=== PATIENT | male | born 1945 | race Hispanic/Latino ===

== ENCOUNTER → 2019-05-12 | Outpatient (CLI) | payer MEDICARE, SELFPAY | PROVIDERS: PCP Family Medicine; Visit Provider Internal Medicine Cardiovascular Disease | DX: Z13.6 Encounter for screening for cardiovascular disorders (principal); Z72.0 Tobacco use | CPT/HCPCS: 76706 ==

== ENCOUNTER 2021-05-11 11:49 | Outpatient (CLI) | payer MEDICARE, SELFPAY ==
--- NOTE | ~2021-05-11 | NM_ITS ---
EXAMINATION: NM bone scan whole body DATE: 05/11/2021 14:33 INDICATION: Prostate cancer TECHNIQUE: 22.1 mCi Tc-99m HDP was administered intravenously. Delayed whole-body scintigrams were o btained. COMPARISON: CT abdomen and pelvis dated 05/11/2021 FINDINGS: Mild likely degenerative joint centered uptake at the medial compartment of the left knee and at the right acromioclavicular joint. Otherwise physiologic distribution of bone and soft tissue uptake. No evident metastatic disease. IMPRESSION: 1. No evident metastatic disease. Reviewed, dictated and finalized at location A.
--- NOTE | ~2021-05-11 | XR_ITS ---
EXAMINATION: XR chest 2V 05/11/2021 12:54 INDICATION: Prostate cancer PROCEDURE: PA and lateral views of the chest COMPARISON: Comparison to multiple prior studies sequentially, with oldest reviewed study dated 06/23. FINDINGS: The lungs are clear. The cardiomediastinal silhouette is within normal limits. There are no pleural effusions. There is no pneumothorax suspected. IMPRESSION: 1: NO ACUTE CARDIOPULMONARY DISEASE. Reviewed, dictated and finalized at location B.
--- NOTE | ~2021-05-11 | CT_ITS ---
EXAMINATION: CT abdomen pelvis w con DATE: 05/11/2021 12:42 INDICATION: Prostate cancer TECHNIQUE: Computed tomography (CT) of the abdomen and pelvis was performed with 100 mL Omnipaque-350 intravenous contrast. Automated exposure control and iterative reconstruction technique were employe d. The dose-length product was 482.13 mGy-cm. COMPARISON: CT dated 08/03/2008 FINDINGS: Respiratory motion and mild atelectasis at the dependent lung bases. Heart size is normal. No pericar dial or pleural effusion. Liver, gallbladder, spleen, pancreas, bilateral adrenal glands and kidneys are normal. Bowels including the appendix are normal. Prostatomegaly. Partially decompressed bladder is unremarkable. Small fat-containing left inguinal hernia. No pathologically enlarged abdominal or p elvic lymphadenopathy. Chronic compression fractures with mild anterior wedging at T11-L1. Mild to mo derate thoracolumbar spondylosis. Small left supra-acetabular bone island. No suspicious lytic or sahara stic bone lesions. IMPRESSION: 1. Prostatomegaly. No evident metastatic disease. Reviewed, dictated and finalized at location A.
[2021-05-11 12:38] LABS: Estimated Glomerular Filt Rate > 60
== END 2021-05-11 11:50 | disposition home or self-care (01) ==
LOC: ANHIMG 12:04
PROVIDERS: PCP Family Medicine; Visit Provider Urology
DX: C61 Malignant neoplasm of prostate (principal); N40.0 Benign prostatic hyperplasia without lower urinary tract symptoms
CPT/HCPCS: 71046; 74177; 78306; A9561; Q9967

== ENCOUNTER 2021-06-23 07:41 | Outpatient (CLI) | payer MEDICARE, SELFPAY ==
--- NOTE | 2021-06-23 09:20 | ECG_ITS ---
Measurements Intervals [place] Rate: 69 P: 37 [place]: 130 QRS: 22 QRSD: 86 T: 53 QT: 403 QTc: 432 Interpretive Statements SINUS RHYTHM CONSIDER INFERIOR INFARCT, AGE INDETERMINATE BORDERLINE ST ABNORMALITY- HIGH LATERAL LEADS BASELINE ARTIFACT- I, II, III, AVR, AVL, AVF ABNORMAL ECG Electronically Signed On 06-23-2021 9:47:40 TECHNICIAN [employer]AT[employer]IC PATHOLOGY by Jake Persaud D.O.
[2021-06-23 09:43] LABS: Basophils Absolute Auto 0.2 K/mm3 (0.0-0.1); Eosinophils Absolute Auto 2.3 K/mm3 (0-0.3); Eosinophils Percent Auto 24.4 % (0-4.4); Hematocrit 42.3 % (42.0-52.0); Hemoglobin 13.9 g/dL (14.0-18.0); Immature Granulocyte Absolute 0.02 K/mm3 (0.00-0.031); Immature Granulocyte Percent A 0.2 % (0-0.5); Lymphocytes Absolute Auto 3.18 K/mm3 (0.9-3.2); Lymphocytes Percent Auto 33.4 % (18.3-44.2); Mean Corpuscular HGB Conc 32.9 g/dl (32-36); Mean Corpuscular Hemoglobin 28.1 pg (26-34); Mean Corpuscular Volume 85.5 fl (80-100); Mean Platelet Volume 8.8 fl (7.4-10.4); Monocytes Absolute Auto 0.6 K/mm3 (0.1-0.6); Monocytes Percent Auto 6.4 % (2.6-8.5); Neutrophils Absolute Auto 3.2 K/mm3 (1.3-6.7); Neutrophils Percent Auto 33.6 % (45.5-73.1); Platelet Count Result 308 k/mm3 (150-375); Red Blood Count 4.95 M/mm3 (4.6-6.20); Red Cell Distribution Width 15.9 % (11.5-14.5); White Blood Count 9.5 K/mm3 (4.5-10.0)
[2021-06-23 09:50] LABS: Add Urine Microscopic? YES; Appearance Urine Clear (Clear); Bilirubin Urine Negative (Negative); Blood Urine Negative (Negative); Color Urine Yellow (Yellow); Glucose Urine UA Negative (Negative); Ketones Urine Negative (Negative); Leukocyte Esterase Ur Negative LEU/UL (Negative); Mucus Urine Rare /lpf; Nitrate Urine Negative (Negative); Protein Urine 1+ mg/dL (Negative); WBC Urine 0-3 /hpf
[2021-06-23 09:53] LABS: INR 3.4; Partial Thromboplastin Time 43.9 SECONDS (22.3-36.8); Prothrombin Time 33.3 Seconds (11.1-14.7)
[2021-06-23 09:55] LABS: Alanine Aminotransferase 20 U/L (4-50); Albumin Level 4.2 g/dL (3.5-5.1); Alkaline Phosphatase 104 U/L (38-126); Anion Gap 9 mmol/L (8-16); Aspartate Amino Transferase 29 U/L (17-59); Bilirubin,Total 0.6 mg/dL (0.2-1.3); Blood Urea Nitrogen 10 mg/dL (9-20); Calcium 9.6 mg/dL (8.4-10.2); Carbon Dioxide 29 mmol/L (22-30); Chloride 104 mmol/L (98-107); Estimated Glomerular Filt Rate > 60; Glucose 90 mg/dL (65-110); Sodium 142 mmol/L (137-145)
== END 2021-06-23 07:42 | disposition home or self-care (01) ==
LOC: ANHSURGERY 07:48
PROVIDERS: PCP Family Medicine; Visit Provider Urology
DX: Z01.818 Encounter for other preprocedural examination (principal); C61 Malignant neoplasm of prostate; R94.31 Abnormal electrocardiogram [ECG] [EKG]
CPT/HCPCS: 36415; 80053; 81001; 85025; 85610; 85730; 86850; 86900; 86901; 93005

== ENCOUNTER 2021-06-30 00:39 | Day surgery (SDC) | payer MEDICARE, SELFPAY ==
--- NOTE | 2021-06-22 10:43 | PM.IMHP ---
H&P: HPI History of Present Illness Date/Time: 06/22/21 10:43 76-year-old male recently referred with a PSA of 58.5. JOE showed irregularity in the prostate. Transrectal ultrasonography showed a 34 g prostate without obvious extracapsular extension. Biopsy showed 6 of 12 cores with [place] [address] abd/pelvis w/ contrast and bone scan showed no evidence of metastatic disease or obvious extracapsular extension. After careful discussion of therapeutic options patient has elected for a radical, robotic assisted prostatectomy. He is aware of the risk of this including, but not limited to, failure to completely control his cancer, rectal injury, adverse cardiopulmonary events, urinary incontinence and erectile dysfunction. He is aware the potential need for adjuvant radiation therapy following surgery. Chief Complaint: Prostate cancer Review of Systems Cardiovascular: Cardiovascular: Denies chest pain, Denies lightheadedness, Denies palpitations and Denies dyspnea Respiratory: Respiratory: Denies dyspnea Gastrointestinal: Gastrointestinal: Denies diarrhea, Denies nausea and Denies vomiting Genitourinary: Genitourinary: Denies hematuria and Denies dysuria Endocrine: Endocrine: Denies palpitations [facility] Past Medical History Medical History Anemia (11/02/20) hemoglobin 12.7 on 11/02/2020 BMI 29.0-29.9,adult BMI 30.0-30.9,adult CAD (coronary artery disease), [place] coronary artery Chronic anxiety Chronic pain of left knee COVID-19 virus detected (~02/16/20) Eczema Elevated PSA, between 10 and less than 20 ng/ml (11/02/20) PSA 16.3 on 11/02/2020 Eosinophilia (~11/02/20) eosinophil count 1248 on 11/02/2020 Folliculitis Iron deficiency anemia, unspecified total iron 31 with 7% saturation and ferritin 44 with hemoglobin 12.8 on 01/18/2021 Keloid scar Obstructive sleep apnea on CPAP Prostate cancer Tinea cruris Tobacco use disorder, continuous Family History Family History Mother Family history of malignant neoplasm Father Family history of malignant neoplasm Social History Social History Years smoked: 50 Smoking status: Light tobacco smoker Tobacco type: cigarettes Alcohol intake: current Alcohol use details: occasionally Substance use: never Substance use type: does not use Meds Home Medications and Allergies Home Medications Medication Instructions Recorded Confirmed Type atorvastatin 20 mg tablet 20 mg PO DAILY 06/04/19 05/05/21 History duloxetine 60 mg capsule,delayed 60 mg PO BID 06/04/19 05/05/21 History release flecainide 100 mg tablet 100 mg PO Q12H 06/04/19 05/05/21 History warfarin 3 mg tablet 3 mg PO DAILY #90 tablet 10/27/19 05/05/21 Rx azithromycin 250 mg tablet See Rx Instructions PO .COMPLEX #6 04/19/20 05/05/21 Rx tablet cephalexin 500 mg tablet 500 mg PO Q8H #30 tablet 05/18/20 05/05/21 Rx lubiprostone 24 mcg capsule 24 mcg PO BID #60 cap 05/18/20 05/05/21 Rx triamcinolone acetonide 0.5 % 1 applic TOPICAL BID #60 g 06/09/20 05/05/21 Rx topical cream mupirocin 2 % topical ointment 1 applic TOPICAL BID #30 g 07/13/20 05/05/21 Rx cyclobenzaprine 10 mg tablet 10 mg PO TID PRN #90 tablet 08/04/20 05/05/21 Rx alprazolam 0.5 mg tablet 0.5 mg PO TID PRN #90 tablet 08/27/20 05/05/21 Rx quetiapine 100 mg tablet 100 mg PO .COMPLEX #60 tablet 09/09/20 05/05/21 Rx zolpidem 10 mg tablet 10 mg PO .QHS PRN #30 tablet 10/07/20 05/05/21 Rx clotrimazole-betamethasone 1 1 applic TOPICAL BID 14 Days #30 g 11/02/20 05/05/21 Rx %-0.05 % topical cream ketoconazole 2 % topical cream 1 applic TOPICAL BID 11/02/20 05/05/21 History metformin 500 mg tablet,extended 2,000 mg PO DAILY #360 tablet 12/22/20 05/05/21 Rx release 24 hr ferrous sulfate 325 mg (65 mg 325 mg PO DAILY #30 tablet
[2021-06-23 08:12] VITALS: BP 139/76; PULSE 71; RESP 18; TEMP 36.7; O2SAT 98; BMI 30.2
--- NOTE | 2021-06-23 08:30 | PC.NURSE ---
Addendum entered by Yeny Tiwari RN 06/23/21 09:30: DAUGHTER (IAN) AND EQUIPMENT OPERATOR INTERMODAL YARD USED FOR PAT INTERVIEW AND CONSENT SIGNINGS. THEY RELAY UNDERSTANDING. Original Note: Report to the Outpatient Waiting Room, entrance under the green pavilion located off [facility], at time ___6:00AM____ on date _06/30/21 . OR Time: ___7:30AM . - You and your visitor will be asked a series of questions to screen for COVID 19 for your protection. - A mask is required within the hospital. - Only one visitor is allowed at this time. Patient visitors will be guided where to wait when not with patient. Preoperative COVID Testing Requirements: No COVID Test needed if: (proof is required; if not received patient will have Rapid Test prior to entry) - Patient has received COVID Vaccine at least 14 days prior to procedure date or - Patient has positive COVID test result within last 90 days of surgery date. COVID Test needed if above criteria is not met If not COVID vaccinated a COVID test must be conducted within 72 hours of surgery and patient is asked to isolate self from time of testing until procedure. You will go to the [facility] for your COVID testing. The [facility] is located at the corner of [address] [facility]. You will only be called if COVID results are positive and your surgeon may reschedule your elective surgery date. Patients may have clear liquids (water, carbonated beverages, clear teas, apple juice) until 3 hours prior to surgery with a maximum of 20 ounces. - No food from midnight until time of surgery - Infants may have breast milk until 4 hours before surgery, infant formula 6 hours prior to surgery. - Children will be allowed to drink immediately following surgery. If applicable, please bring a bottle or sippy cup to assist with drinking. Juice, water, soda, and popsicles are readily available. For infants on formula, please bring formula the day of surgery. Pacifiers are allowed. Take the following medications with a SIP of water the morning of surgery: ___FLECAINIDE, OXYCODONE NEEDED Medications to discontinue per physician WARFARIN PER DR ESCOBAR/DR KUMAR Date to take last dose Please no make-up, nail ukrainian, hairspray, perfume, deodorant, or body powder the day of surgery. No jewelry (including any body piercings) or valuables the day of surgery, leave them at home. Please take a shower or bath the night before, or the morning of, surgery with an antibacterial soap. Wear comfortable, loose fitting clothing. Children are encouraged to wear pajamas. - Jewelry must be removed prior to entering the operating room. Rings and piercings that are not removed may be cut off. - The hospital will not accept responsibility for valuables. - Please leave all valuables, including medications, at home the day of surgery. If you are going home after surgery, a licensed ambulette driver must drive you home. - NO public transportation without another adult. - We recommend that an adult stay with you for 24 hours following discharge. - We also recommend that you do not drive, make important decision, drink alcoholic beverages, or take any drugs that were not prescribed by your health care provider for at least 24 hours after your discharge time. For Pediatric surgeries, we recommend two adults accompany the child home (only one inside the building at this time). Follow any additional instructions given to you from your surgeon. Telephone instructions given to ___PATIENT and asked if any additional questions and then verbalized understanding. Patient advised to call surgeon office or pre surgery nurse liaison [phone] if any additional questions.
--- NOTE | 2021-06-29 13:23 | WPDANESEPPF ---
Anes - Initial Pre Proc Eval Procedure: Operation Date: 06/30/21 07:30 Proposed Procedures p Robotic Assisted Laparoscopic Prostatectomy with Bilateral Pelvic Lymph Node Dissection - Gumaro Steward MD Date/Time: 06/29/21 13:23 Surgeon: Gumaro Steward MD Pre Op Diagnosis: prostate CA Patient Data Age: 76 Gender: M Height: 1.7 m Weight: 87.7 kg Last Vital Signs Temp 36.7 C 06/23/21 08:12 Pulse 71 06/23/21 08:12 Resp 18 06/23/21 08:12 BP 139/76 06/23/21 08:12 Pulse Ox 98 06/23/21 08:12 Allergies Allergy/AdvReac Type Severity Reaction Status Date / Time No Known Allergies Allergy Verified 06/30/21 06:19 Home Medications Medication Instructions Recorded Confirmed Type atorvastatin 20 mg tablet 20 mg PO DAILY 06/04/19 06/30/21 History flecainide 100 mg tablet 100 mg PO Q12H 06/04/19 06/30/21 History lubiprostone 24 mcg capsule 24 mcg PO BID #60 cap 05/18/20 06/30/21 Rx cyclobenzaprine 10 mg tablet 10 mg PO TID PRN #90 tablet 08/04/20 06/30/21 Rx quetiapine 100 mg tablet 100 mg PO .COMPLEX #60 tablet 09/09/20 06/30/21 Rx ferrous sulfate 325 mg (65 mg 325 mg PO DAILY #30 tablet 01/19/21 06/30/21 Rx iron) tablet esomeprazole magnesium 40 mg 40 mg PO DAILY #90 cap 02/02/21 06/30/21 Rx capsule,delayed release metformin 1,000 mg PO BID 06/23/21 06/30/21 History oxycodone-acetaminophen 10 mg-325 1 tablet PO Q6H PRN #120 tablet 06/23/21 Rx mg tablet warfarin 4 mg PO EVERY OTHER DAY 06/23/21 06/30/21 History warfarin [Jantoven] 3 mg PO EVERY OTHER DAY 06/23/21 06/30/21 History Patient hx anesthesia problems: none Family hx anesthesia problems: none Results Review: All pre-operative results and documents have been reviewed as part of the pre-operative evaluation. [facility] Past Medical History Medical History (Updated 06/29/21 @ 13:23 by Rich Jensen DO) Anemia (11/02/20) hemoglobin 12.7 on 11/02/2020 Atrial fibrillation BMI 29.0-29.9,adult BMI 30.0-30.9,adult CAD (coronary artery disease), [place] coronary artery Chronic anxiety Chronic pain of left knee COVID-19 virus detected (~02/16/20) Eczema Elevated PSA, between 10 and less than 20 ng/ml (11/02/20) PSA 16.3 on 11/02/2020 Eosinophilia (~11/02/20) eosinophil count 1248 on 11/02/2020 Folliculitis Iron deficiency anemia, unspecified total iron 31 with 7% saturation and ferritin 44 with hemoglobin 12.8 on 01/18/2021 Keloid scar Obstructive sleep apnea on CPAP Prostate cancer Tinea cruris Tobacco use disorder, continuous Family History Family History Mother Family history of malignant neoplasm Father Family history of malignant neoplasm Social History Social History Smoking packs per day: 0.5 Smoking cigarettes per day: 10.0 Years smoked: 50 Smoking pack-years: 25.00 Smoking status: Light tobacco smoker Tobacco type: cigarettes Additional smoking assessment comments: 5 CIG/DAY CURRENTLY Alcohol intake: current Alcohol use details: occasionally Substance use: never Substance use type: does not use Living arrangements: with family Additional living arrangements comments: [facility]- Spiritual care concerns: No Anes - Eval Final PreProcedure Day of Procedure 06/29/21 13:23 Patient weight: obese Heart: regular rate and rhythm Lungs: clear to auscultation and normal air movement Airway: Mallampati scale class II Neurological: alert and oriented Last oral intake: >/= 8 hours ASA classification: III Emergent: no Anesthetic plan: proceed Anesthesia type and monitoring: general ETT and standard monitoring Results Review: All pre-operative results and documents have been reviewed as part of the pre-operative evaluation. Informed Consent: The patient's anesthetic plan and its attendant risks and benefits were discussed with the shantel
[2021-06-30] VITALS (15 sets, daily range): BP systolic 108–149; BP diastolic 55–78; PULSE 61–94; RESP 12–25; TEMP 36–36.9; O2SAT 93–100; BMI 27.8
[2021-06-30 06:47] LABS: Glucose Point of Care 94 mg/dl (65-105)
--- NOTE | 2021-06-30 06:48 | WPDHPUPDATE1 ---
History and Physical Update Update Date/Time: 06/30/21 06:48 History and Physical has been reviewed, including an updated exam of the patient. There are NO changes in the patient's condition. Risks, benefits, and alternatives have been discussed and questions answered. Patient agrees to proceed with procedure.
[2021-06-30] MEDS: LACTATED RINGERS 1,000 ML 30 ML IV CONT ×2 (06:50→12:10)
[2021-06-30 07:41] LABS: Prothrombin Time 13.1 Seconds (11.1-14.7)
[2021-06-30 07:42] LABS: Partial Thromboplastin Time 28.6 SECONDS (22.3-36.8)
[2021-06-30] MEDS: ceFAZolin 2 GM/D5W 50 ML 2 GM/50 ML BAG IVPB (07:55)
--- NOTE | 2021-06-30 09:23 | SUR.OPER ---
BILATERAL LEGS REMAIN IN FLEXED POSITION AND UNCHANGED 09:24
--- NOTE | 2021-06-30 10:28 | SUR.OPER ---
BILATERAL LEGS AND ARMS REMAIN UNCHANGED FROM STARTING POSITION
[2021-06-30] MEDS: ceFAZolin SODIUM 1 GM VIAL IV PUSH (11:50)
--- NOTE | 2021-06-30 12:19 | W.PM.PROC2 ---
Procedure Note - Detailed Date of Procedure 06/30/21 Pre-op Diagnosis Prostate CA Post-op Diagnosis same Procedure Performed Robotic-assisted, radical prostatectomy with bilateral pelvic lymphadenectomy Surgeon Gumaro Steward MD Anesthesia general Findings Abnormal tissue planes at bladder neck and seminal vesicles. Matted pelvic lymph nodes bilaterally. Description of Procedure The patient was brought to the operative suite, where he was prepped and draped in routine sterile fashion while in a dorsal lithotomy, deep Trendelenburg position. A supraumbilical 10 mm trocar was placed after insufflation of the abdomen with a Veress needle. Three robotic ports were then placed under direct vision. Two of these were placed in the right lower quadrant - 10 cm and 20 cm lateral to, and in line with, the umbilicus. A third robotic trocar was placed 10 cm to the left of the umbilicus, and 20 cm to the left of the umbilicus, a 12 mm standard laparoscopic trocar was placed to be used as an kindergarten assistant port. Lastly, a 5 mm trocar was placed in the left upper quadrant midway between the umbilicus and the left robotic trocar. Attention was then turned to the prostatectomy. I opted for a posterior approach in this patient. An incision was made in the parietal peritoneum along the posterior bladder/posterior prostate about 2 cm above the reflection of the peritoneum over the anterior rectum. The seminal vesicles and vas deferens were immediately identified. Dissection is undertaken in a fashion so as to avoid electrocautery as much as possible, particularly near the tips of the seminal vesicles. The tissue at seminal vesicle bases was unusual with indistinct tissue planes. The seminal vesicles becamed dislodged during dissection. Dissection was also carried out in the midline so as to avoid any encounters with the ureters. The vas deferens and the seminal vesicles were dissected in their entirety to the base of the prostate. The plane anterior to Denoviller's fascia, anterior to the rectum and posterior to the prostate was then developed. I then dropped the bladder by incising the anterior parietal peritoneum just lateral to the median umbilical ligaments bilaterally. The bladder was dropped from the anterior abdominal and pelvic wall. The endopelvic fascia was identified and incised bilaterally, allowing for dissection of the posterior-lateral aspect of the prostate. The puboprostatic ligaments were transected near their origin from the posterior pubic ramus. This posterior lateral dissection of the prostate is also undertaken in a fashion so as to avoid electrocautery as much as possible. The dorsal vein of the penis is then secured with an 0 -Vicryl ligature. Attention is then turned to the bladder neck. The anterior bladder neck is incised at the vesico-prostatic junction. Likte the seminal vesicles, the normal tissue planes at the bladder neck were unusual. The previously placed urethral catheter was drawn through the urethrotomy. A very small bladder neck was maintained throughout the remainder of this dissection. The posterior bladder neck was incised in a fashion so as to avoid any injury to the ureteral orifices. Again, the small aperture of the bladder neck was maintained. The previously dissected vas deferens and the seminal vesicles were brought through the posterior bladder neck incision. The lateral prostatic pedicles were then carefully dissected from the lateral aspect of the prostate bilaterally. The prostatic pedicles were secured with Weck clips and transected. The neurovascular bundles were carefully dissected from the posterior-lateral aspect of the prostate. The dorsal vein of the penis was incised with electrocautery. Using cold scissors, the urethra was incised. After withdrawing the previously placed urethral catheter, the posterior urethra was sharply incised, as was the rectalurethralis muscle. Attention was then turned to an e
[2021-06-30 12:20] LABS: Glucose Point of Care 92 mg/dl (65-105)
[2021-06-30] MEDS: fentaNYL CITRATE INJ (*CRX) 100 MCG/2 ML VIAL 25 MCG IV PUSH ×5 (12:36→13:17)
--- NOTE | 2021-06-30 14:06 | ADMGEN ---
This patient, Ej Steen, was admitted to Medical Room 346-01. Patient/family oriented to hospital policies and general routines including ID bracelet, bed and alarms, visiting hours, pain management, procedures, bathroom and other care routines, personal items, smoking policy, room service/diet, and visiting hours. Information on how to activate the Rapid Response Team has been discussed. Patient/Family are encouraged to report perceived risks to care and to ask questions if they do not understand what they are told or what they should do.
[2021-06-30] MEDS: KETOROLAC 15 MG/ML VIAL (*BKC) IV PUSH (14:16)
[2021-06-30] MEDS: CYCLOBENZAPRINE HCL 10 MG TABLET PO ×2 (14:16→18:39)
[2021-06-30] MEDS: LACTATED RINGERS 1,000 ML 125 ML IV CONT (14:20)
[2021-06-30] MEDS: HYOSCYAMINE SULFATE 0.125 MG TABLET SUBLINGUAL (16:37)
[2021-06-30] MEDS: ONDANSETRON INJ 4 MG/2 ML VIAL IV PUSH (16:38)
[2021-06-30 16:39] LABS: Glucose Point of Care 110 mg/dl (65-105)
[2021-06-30] MEDS: LUBIPROSTONE 24 MCG CAPSULE PO (18:39)
[2021-06-30] MEDS: QUEtiapine FUMARATE 100 MG, QUEtiapine FUMARATE 50 MG 150 MG PO (21:32)
[2021-06-30] MEDS: FLECAINIDE ACETATE 100 MG TABLET PO (21:32)
[2021-06-30 21:37] LABS: Glucose Point of Care 122 mg/dl (65-105)
[2021-07-01] MEDS: LACTATED RINGERS 1,000 ML 125 ML IV CONT (00:28)
[2021-07-01 03:15] VITALS: BP 124/61; PULSE 84; RESP 18; TEMP 36.5; O2SAT 96
[2021-07-01 06:28] LABS: Hemoglobin 9.4 g/dL (14.0-18.0)
[2021-07-01 07:07] LABS: Anion Gap 8 mmol/L (8-16); Blood Urea Nitrogen 20 mg/dL (9-20); Calcium 7.9 mg/dL (8.4-10.2); Carbon Dioxide 23 mmol/L (22-30); Chloride 101 mmol/L (98-107); Estimated CRCL calculation 52 ml/min; Estimated Glomerular Filt Rate > 60; Glucose 113 mg/dL (65-110); Potassium 4.1 mmol/L (3.4-5.0); Sodium 132 mmol/L (137-145)
--- NOTE | 2021-07-01 07:33 | W.PM.PROC2 ---
Procedure Note - Detailed Date of Procedure 07/01/21 Pre-op Diagnosis prostate CA Surgeon Gumaro Steward MD Estimated Blood Loss -200.0 Urine Output 150
--- NOTE | 2021-07-01 07:35 | WPDUROPN2 ---
Progress Note: A&P Assessment and Plan (1) Prostate cancer: Code(s): C61 - Malignant neoplasm of prostate Status: Acute Assessment and Plan: Comfortable, no complaints - tolerating diet. Increase diet/ambulation. Home later today likely. Subjective Subjective Date/Time Seen: 07/01/21 07:35 Comfortable, no complaints, tolerating diet Review of Systems Cardiovascular: Cardiovascular: Denies chest pain, Denies lightheadedness, Denies palpitations and Denies dyspnea Respiratory: Respiratory: Denies dyspnea Gastrointestinal: Gastrointestinal: Denies diarrhea, Denies nausea and Denies vomiting Genitourinary: Genitourinary: Denies hematuria and Denies dysuria Endocrine: Endocrine: Denies palpitations Exam Const: General: no acute distress Resp: Effort & Inspection: normal respiratory effort GI: Inspection: non-distended GI Palp: No abdominal tenderness and No Guarding due to palpation present (GI) Auscultation: normal bowel sounds Objective Data Vital Signs Vital Signs: Vital Signs - 24 hr 06/30/21 12:10 06/30/21 12:15 06/30/21 12:25 Temperature 98.4 F Pulse Rate 77 81 79 Respiratory Rate 13 18 12 Blood Pressure 139/75 137/70 141/77 H Pulse Oximetry 100 100 100 06/30/21 12:40 06/30/21 12:55 06/30/21 13:10 Temperature Pulse Rate 84 87 86 Respiratory Rate 25 H 20 16 Blood Pressure 149/73 H 141/76 H 133/75 Pulse Oximetry 100 95 97 06/30/21 13:24 06/30/21 13:56 06/30/21 14:15 Temperature 96.8 F L 97.6 F Pulse Rate 94 62 92 Respiratory Rate 14 18 18 Blood Pressure 108/68 136/71 139/68 Pulse Oximetry 94 93 96 06/30/21 14:45 06/30/21 15:40 06/30/21 19:15 Temperature 97.4 F L 97.6 F 97.3 F L Pulse Rate 90 90 91 Respiratory Rate 18 18 20 Blood Pressure 117/65 114/68 120/55 L Pulse Oximetry 98 96 99 06/30/21 21:32 06/30/21 23:15 Temperature 97.0 F L Pulse Rate 61 85 Respiratory Rate 18 Blood Pressure 113/56 L Pulse Oximetry 97 Intake/Output Intake/Output: Intake & Output 06/28/21 06/29/21 06/30/21 07/01/21 23:59 23:59 23:59 23:59 Intake Total 2450 550 Output Total 390 Balance 2060 550 Meds/Results Medications: Active Medications Generic Name Dose Route Start Last Admin Trade Name Freq PRN Reason Stop Dose Admin Atorvastatin Calcium 20 mg 07/01/21 09:00 Atorvastatin 20 Mg Tablet PO DAILY DAREN Cyclobenzaprine HCl 10 mg 06/30/21 13:30 06/30/21 18:39 Cyclobenzaprine Hcl 10 Mg Tablet PO 10 mg TID PRN Administration muscle spasm Dextrose 12.5 gm 06/30/21 12:30 Dextrose 50% 25 Gm/50 Ml Syringe IV PUSH PRN PRN Hypoglycemia Protocol Flecainide Acetate 100 mg 06/30/21 21:00 06/30/21 21:32 Flecainide Acetate 100 Mg Tablet PO 100 mg Q12H DAREN Administration Glucagon 1 mg 06/30/21 12:30 Glucagon For Inj 1 Mg Vial IM PRN PRN Hypoglycemia Protocol Glucose 15 gm 06/30/21 12:30 Glucose Oral Gel 15 Gm Of Glucse In 37.5 Gm Tube PO PRN PRN Hypoglycemia Protocol Hyoscyamine 0.125 mg 06/30/21 13:30 06/30/21 16:37 Hyoscyamine Sulfate 0.125 Mg Tablet SUBLINGUAL 0.125 mg Q4H PRN Administration Bladder Spasm Dextrose 1,000 mls @ 100 mls/hr 06/30/21 12:30 Dextrose 5% 1,000 Ml IVPB PRN PRN Hypoglycemia Protocol Lactated Ringer's 1,000 mls @ 125 mls/hr 06/30/21 13:30 07/01/21 05:35 Lr - Lactated Ringers Iv IV CONT 125 mls/hr .Q8H DAREN Infusion Acetaminophen 1,000 mg in 100 mls @ 400 mls/hr 06/30/21 14:00 07/01/21 02:55 Ofirmev 1,000 Mg Ivpb IVPB 07/01/21 13:59 Infused Q6H DAREN Infusion Insulin Aspart 2 - 5 units 06/30/21 17:00 06/30/21 16:41 Insulin Aspart (*Bkc) 100 Units/Ml SUB-Q Not Given TIDWM DAREN Protocol Ketorolac Tromethamine 15 mg 06/30/21 13:30 06/30/21 14:16 Ketorolac 15 Mg/Ml Vial (*Bk) IV PUSH 07/01/21 13:29 15 mg Q6H PRN Administration Pain Ra
[2021-07-01 07:57] LABS: Glucose Point of Care 109 mg/dl (65-105)
[2021-07-01 09:22] VITALS: BP 98/44; PULSE 92; RESP 20; TEMP 36.1; O2SAT 96
[2021-07-01 09:38] VITALS: PULSE 86
[2021-07-01] MEDS: QUEtiapine FUMARATE 25 MG TABLET 50 MG PO (09:38)
[2021-07-01] MEDS: FLECAINIDE ACETATE 100 MG TABLET PO (09:38)
[2021-07-01] MEDS: LUBIPROSTONE 24 MCG CAPSULE PO (09:38)
[2021-07-01] MEDS: levoFLOXacin 500 MG TABLET PO (09:39)
[2021-07-01] MEDS: ATORVASTATIN 20 MG TABLET PO (09:39)
--- NOTE | 2021-07-01 10:02 | PC.NURSE ---
Went over d/c instructions with status copy room technician- pt verbalized understanding
[2021-07-04 07:15] LABS: Glucose Point of Care 121 mg/dl (65-105)
[2021-07-04 07:15] LABS: Glucose Point of Care 105 mg/dl (65-105)
[2021-07-04 07:16] LABS: Glucose Point of Care 115 mg/dl (65-105)
== END 2021-07-01 11:20 | disposition home or self-care (01) ==
LOC: ANHSURGERY 06:05 → ANH3MED 13:34
PROVIDERS: PCP Family Medicine; Visit Provider Urology
PROC: 0VT04ZZ Resection of Prostate, Percutaneous Endoscopic Approach (ICD-10-PCS; CPT 55867; principal; 2021-06-30 07:30)
DX: C61 Malignant neoplasm of prostate (principal); N41.1 Chronic prostatitis; I48.91 Unspecified atrial fibrillation; I25.10 Atherosclerotic heart disease of native coronary artery without angina pectoris; D50.9 Iron deficiency anemia, unspecified; F41.9 Anxiety disorder, unspecified; G47.33 Obstructive sleep apnea (adult) (pediatric); Z79.01 Long term (current) use of anticoagulants; Z79.84 Long term (current) use of oral hypoglycemic drugs; F17.210 Nicotine dependence, cigarettes, uncomplicated; E66.9 Obesity, unspecified; Z68.27 Body mass index [BMI] 27.0-27.9, adult
CPT/HCPCS: 55866; 38571; S2900; 36415; 80048; 82948; 85014; 85018; 85610; 85730; 88302; 88305; 88307; 88309; A9270; J0131; J0330; J0690; J1885; J2270; J2370; J2405; J2704; J2710; J3010; J7030; J7120; Q9968

== ENCOUNTER 2021-07-02 06:18 | Inpatient (IN) | payer MEDICARE, MEDICAID, SELFPAY ==
[2021-07-02] VITALS (10 sets, daily range): BP systolic 140–172; BP diastolic 69–92; PULSE 91–112; RESP 12–20; TEMP 36.5–36.7; O2SAT 91–96; BMI 28.1
--- NOTE | ~2021-07-02 | CT_ITS ---
EXAMINATION: CT abdomen pelvis w con INDICATION: Generalized abdominal pain and constipation, recent prostatectomy TECHNIQUE: Computed tomographic images of the abdomen and pelvis were obtained after the administrati on of 100 cc of Omnipaque 350 intravenous contrast. The dose-length product (DLP) was 649.11 mGy-cm. Automated exposure control and iterative reconstruction technique were employed. COMPARISON: 05/11/2021 FINDINGS: There are tiny pleural effusions. There is a 3 mm nodule of the right middle lobe. Atelecta sis is present at the visualized lung bases. The heart size is normal. Respiratory motion artifact sl ightly limits evaluation of the upper abdomen. The liver, spleen,, gallbladder, and adrenal glands ar e normal. 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 The kidneys are unremarkable. The bladder is decompressed by a Hercules catheter. There is a mo derate volume of free intraperitoneal gas. Gas is also seen in the anterior abdominal wall which trac ks into the pelvis, inguinal regions, scrotum, and proximal lower extremities. There is hyperattenuat ing fluid of the right pelvis which tracks anterior to the urinary bladder. The right pelvic componen t measures approximately 8.7 x 2.5 cm. There is liquid stool throughout much of the colon. There is r etroperitoneal and bilateral iliac chain lymphadenopathy. For instance a 3.5 x 2.3 cm lymph node is s een adjacent to the proximal left common iliac artery. Chronic compression fractures are again noted from T11 through L1. IMPRESSION: 1. Widespread intraperitoneal gas and gas in the anterior subcutaneous tissues tracking into the scro dainel and proximal lower extremities, consistent with sequela of recent prostatectomy. 2. Hyperattenuating fluid collection of the right pelvis tracking anterior to the urinary bladder, li mohini postoperative hematoma. 3. Retroperitoneal and bilateral iliac chain lymphadenopathy, consistent with metastatic disease. Reviewed, dictated and finalized at location A. RVISOR TYPE BAR AND SEGMENT IMPRESSION: 1. Widespread intraperitoneal gas and gas in the anterior subcutaneous tissues tracking into the scrotum and proximal lower extremities, consistent with seque la of recent prostatectomy. 2. Hyperattenuating fluid collection of the right pelvis tracking anterior to t he urinary bladder, likely postoperative hematoma. 3. Retroperitoneal and bilateral iliac chain lymphadenopathy, consistent with m etastatic disease.
[2021-07-02 07:21] LABS: Basophils Absolute Auto 0.1 K/mm3 (0.0-0.1); Basophils Percent Auto 0.5 % (0.2-1.2); Eosinophils Absolute Auto 0.5 K/mm3 (0-0.3); Eosinophils Percent Auto 4.9 % (0-4.4); Hematocrit 28.2 % (42.0-52.0); Hemoglobin 9.2 g/dL (14.0-18.0); Immature Granulocyte Absolute 0.05 K/mm3 (0.00-0.031); Immature Granulocyte Percent A 0.5 % (0-0.5); Lymphocytes Absolute Auto 1.54 K/mm3 (0.9-3.2); Lymphocytes Percent Auto 14.1 % (18.3-44.2); Mean Corpuscular HGB Conc 32.6 g/dl (32-36); Mean Corpuscular Hemoglobin 28.5 pg (26-34); Mean Corpuscular Volume 87.3 fl (80-100); Mean Platelet Volume 8.9 fl (7.4-10.4); Monocytes Absolute Auto 1.2 K/mm3 (0.1-0.6); Monocytes Percent Auto 10.9 % (2.6-8.5); Neutrophils Absolute Auto 7.6 K/mm3 (1.3-6.7); Neutrophils Percent Auto 69.1 % (45.5-73.1); Platelet Count Result 235 k/mm3 (150-375); Red Blood Count 3.23 M/mm3 (4.6-6.20); White Blood Count 10.9 K/mm3 (4.5-10.0)
--- NOTE | 2021-07-02 07:26 | ED.ABDPAIN ---
HPI - Abdominal Pain General Chief Complaint: Abdominal Pain Stated Complaint: no bm x 1 week s/p prostate removal. Time Seen by Provider: 07/02/21 07:26 Source: patient Related Data Home Medications Medication Instructions Recorded Confirmed atorvastatin 20 mg tablet 20 mg PO DAILY 06/04/19 06/30/21 flecainide 100 mg tablet 100 mg PO Q12H 06/04/19 06/30/21 metformin 1,000 mg PO BID 06/23/21 06/30/21 warfarin 4 mg PO EVERY OTHER DAY 06/23/21 06/30/21 warfarin [Jantoven] 3 mg PO EVERY OTHER DAY 06/23/21 06/30/21 Allergies Allergy/AdvReac Type Severity Reaction Status Date / Time No Known Allergies Allergy Verified 07/02/21 06:43 [facility] Past Medical History Medical History (Updated 06/29/21 @ 13:23 by Rich Jensen DO) Anemia (11/02/20) hemoglobin 12.7 on 11/02/2020 Atrial fibrillation BMI 29.0-29.9,adult BMI 30.0-30.9,adult CAD (coronary artery disease), [place] coronary artery Chronic anxiety Chronic pain of left knee COVID-19 virus detected (~02/16/20) Eczema Elevated PSA, between 10 and less than 20 ng/ml (11/02/20) PSA 16.3 on 11/02/2020 Eosinophilia (~11/02/20) eosinophil count 1248 on 11/02/2020 Folliculitis Iron deficiency anemia, unspecified total iron 31 with 7% saturation and ferritin 44 with hemoglobin 12.8 on 01/18/2021 Keloid scar Obstructive sleep apnea on CPAP Prostate cancer Tinea cruris Tobacco use disorder, continuous Family History Family History Mother Family history of malignant neoplasm Father Family history of malignant neoplasm Social History Social History Smoking packs per day: 0.5 Smoking cigarettes per day: 10.0 Years smoked: 50 Smoking pack-years: 25.00 Smoking status: Light tobacco smoker Tobacco type: cigarettes Additional smoking assessment comments: 5 CIG/DAY CURRENTLY Alcohol intake: current Alcohol use details: occasionally Substance use: never Substance use type: does not use Additional living arrangements comments: [facility]- Spiritual care concerns: No Course Vital Signs Vital signs: Vital Signs Temperature 36.7 C 07/02/21 06:38 Pulse Rate 100 07/02/21 06:38 Respiratory Rate 20 07/02/21 06:38 Blood Pressure 153/74 H 07/02/21 06:38 Pulse Oximetry 95 07/02/21 06:38 Temperature 36.7 C 07/02/21 06:38 Pulse Rate 100 07/02/21 06:38 Respiratory Rate 20 07/02/21 06:38 Blood Pressure 153/74 H 07/02/21 06:38 Pulse Oximetry 95 07/02/21 06:38 MDM - Abdominal Pain Lab Data Result diagrams: 07/02/21 07:15 07/02/21 07:15 Labs: Lab Results 07/02/21 07/02/21 07/02/21 Range/Units 07:15 07:15 07:15 WBC 10.9 H (4.5-10.0) K/mm3 RBC 3.23 L (4.6-6.20) M/mm3 Hgb 9.2 L (14.0-18.0) g/dL Hct 28.2 L (42.0-52.0) % MCV 87.3 (80-100) fl MCH 28.5 (26-34) pg MCHC 32.6 (32-36) g/dl RDW 16.0 H (11.5-14.5) % Plt Count 235 (150-375) k/mm3 MPV 8.9 (7.4-10.4) fl Immature Gran % (Auto) 0.5 (0-0.5) % Neut % (Auto) 69.1 (45.5-73.1) % Lymph % (Auto) 14.1 L (18.3-44.2) % [place] % (Auto) 10.9 H (2.6-8.5) % Eos % (Auto) 4.9 H (0-4.4) % Baso % (Auto) 0.5 (0.2-1.2) % Lymph # (Auto) 1.54 (0.9-3.2) K/mm3 [place] # (Auto) 1.2 H (0.1-0.6) K/mm3 Eos # (Auto) 0.5 H (0-0.3) K/mm3 Baso # (Auto) 0.1 (0.0-0.1) K/mm3 Abs Immat Gran (auto) 0.05 H (0.00-0.031) K/mm3 Absolute Neuts (auto) 7.6 H (1.3-6.7) K/mm3 Absolute Nucleated RBC 0.0 (0.0-0.012) K/mm3 Nucleated RBC % 0.0 (0.0-0.2) % Sodium Pending Potassium Pending Chloride Pending Carbon Dioxide Pending Anion Gap Pending BUN Pending Creatinine Pending Estim Creat Clear Calc Pending Estimated GFR Pending Glucose Pending Calcium Pe
[2021-07-02 07:29] LABS: Add Urine Microscopic? YES; Appearance Urine Clear (Clear); Bacteria Urine Trace /hpf; Bilirubin Urine Negative (Negative); Blood Urine 3+ (Negative); Color Urine Yellow (Yellow); Glucose Urine UA Negative (Negative); Ketones Urine Trace mg/dL (Negative); Leukocyte Esterase Ur Negative LEU/UL (Negative); Mucus Urine Rare /lpf; Nitrate Urine Negative (Negative); Protein Urine 2+ mg/dL (Negative); RBC Urine >75 /hpf (0-2); Specific Grav Ur 1.023 (1.001-1.035); Squamous Epithelial Cell Urine Rare /hpf (Few)
[2021-07-02 07:30] LABS: Alanine Aminotransferase 20 U/L (4-50); Albumin Level 3.5 g/dL (3.5-5.1); Alkaline Phosphatase 85 U/L (38-126); Anion Gap 10 mmol/L (8-16); Aspartate Amino Transferase 30 U/L (17-59); Bilirubin,Total 0.7 mg/dL (0.2-1.3); Blood Urea Nitrogen 16 mg/dL (9-20); Calcium 8.5 mg/dL (8.4-10.2); Carbon Dioxide 25 mmol/L (22-30); Chloride 102 mmol/L (98-107); Estimated CRCL calculation 57 ml/min; Estimated Glomerular Filt Rate > 60; Glucose 132 mg/dL (65-110); Lipase 39 U/L (23-300); Potassium 4.1 mmol/L (3.4-5.0); Sodium 137 mmol/L (137-145)
[2021-07-02] MEDS: HYDROmorphone HCL INJ (*CRX) 1 MG/ML SYR 0.5 MG IV PUSH (07:38)
[2021-07-02] MEDS: SODIUM CHLORIDE 0.9% IV 1,000 ML 999 ML IV CONT (07:38)
--- NOTE | 2021-07-02 08:35 | PC.NURSE ---
Pt states is much more comfortable at present. Made aware of pending CT scan.
--- NOTE | 2021-07-02 10:09 | PC.NURSE ---
Per [employer] Associate attempting bed placement, however have to move other patients. Pt updated on delay.
--- NOTE | 2021-07-02 10:46 | PC.NURSE ---
GALLITO Lakhani, at bedside for exam.
--- NOTE | 2021-07-02 11:47 | PC.NURSE ---
Clear liquid diet ordered for patient. Pt also requesting something else for pain.
[2021-07-02] MEDS: SODIUM CHLORIDE 0.9% IV 1,000 ML 125 ML IV CONT ×2 (11:52→23:15)
[2021-07-02] MEDS: MORPHINE SULFATE (*CRX) 4 MG/ML INJ IV PUSH ×2 (11:53→17:55)
--- NOTE | 2021-07-02 12:56 | PC.NURSE ---
Pt requests help with emptying pimentel, arrive to note pt eating chicken wings that his son brought from home. Explained that a clear liquid diet has been ordered for the patient and that he is on a clear liquid diet. Verb understanding.
--- NOTE | 2021-07-02 15:10 | PM.IMHP ---
H&P: HPI History of Present Illness Date/Time: 07/02/21 15:10. This is a 76-year-old gentleman who underwent robotic assisted laparoscopic prostatectomy. He was discharged home yesterday in stable condition. He returned today for abdominal pain and constipation. He is a [place] speaker, but his son is present in the room. They admit that he has not been taking pain medication due to fears of constipation. He has not had a bowel movement in several days pre dating the operation. He is having some bladder spasms associated with the Hercules catheter. He denies any fevers or chills. He denies any vomiting or significant nausea. CT scan was done in the emergency room. It shows an ileus, but no acute findings of bowel obstruction. There are multiple postoperative findings as well as pelvic lymphadenopathy Chief Complaint: ileus Review of Systems Review of Systems: All systems reviewed & are unremarkable except as noted in HPI and below PMFSH Past Medical History Medical History Anemia (11/02/20) hemoglobin 12.7 on 11/02/2020 Atrial fibrillation BMI 29.0-29.9,adult BMI 30.0-30.9,adult CAD (coronary artery disease), [place] coronary artery Chronic anxiety Chronic pain of left knee COVID-19 virus detected (~02/16/20) Eczema Elevated PSA, between 10 and less than 20 ng/ml (11/02/20) PSA 16.3 on 11/02/2020 Eosinophilia (~11/02/20) eosinophil count 1248 on 11/02/2020 Folliculitis Iron deficiency anemia, unspecified total iron 31 with 7% saturation and ferritin 44 with hemoglobin 12.8 on 01/18/2021 Keloid scar Obstructive sleep apnea on CPAP Prostate cancer Tinea cruris Tobacco use disorder, continuous Family History Family History Mother Family history of malignant neoplasm Father Family history of malignant neoplasm Social History Social History Smoking packs per day: 0.5 Smoking cigarettes per day: 10.0 Years smoked: 50 Smoking pack-years: 25.00 Smoking status: Current every day smoker Tobacco type: cigarettes Additional smoking assessment comments: 5 CIG/DAY CURRENTLY Alcohol intake: current Drinks per week: 1 Alcohol use details: occasionally Substance use: never Substance use type: does not use Additional living arrangements comments: [facility]- Spiritual care concerns: No Meds Home Medications and Allergies Home Medications Medication Instructions Recorded Confirmed Type atorvastatin 20 mg tablet 20 mg PO DAILY 06/04/19 07/02/21 History flecainide 100 mg tablet 100 mg PO Q12H 06/04/19 07/02/21 History lubiprostone 24 mcg capsule 24 mcg PO BID #60 cap 05/18/20 07/02/21 Rx cyclobenzaprine 10 mg tablet 10 mg PO TID PRN #90 tablet 08/04/20 07/02/21 Rx quetiapine 100 mg tablet 100 mg PO .COMPLEX #60 tablet 09/09/20 07/02/21 Rx ferrous sulfate 325 mg (65 mg 325 mg PO DAILY #30 tablet 01/19/21 07/02/21 Rx iron) tablet esomeprazole magnesium 40 mg 40 mg PO DAILY #90 cap 02/02/21 07/02/21 Rx capsule,delayed release metformin 1,000 mg PO BID 06/23/21 07/02/21 History oxycodone-acetaminophen 10 mg-325 1 tablet PO Q6H PRN #120 tablet 06/23/21 07/02/21 Rx mg tablet warfarin 4 mg PO EVERY OTHER DAY 06/23/21 07/02/21 History warfarin [Jantoven] 3 mg PO EVERY OTHER DAY 06/23/21 07/02/21 History cephalexin 500 mg PO Q8H #15 cap 06/30/21 07/02/21 Rx docusate sodium [Colace] 100 mg PO DAILY #30 cap 06/30/21 07/02/21 Rx Allergies Allergy/AdvReac Type Severity Reaction Status Date / Time No Known Allergies Allergy Verified 07/02/21 12:11 Vital Signs Vital Signs - 24 hr 07/02/21 06:38 07/02/21 08:38 07/02/21 10:08 Temperature 98.1 F Pulse Rate 100 99 95 Respiratory Rate 20 18 18 Blood Pressure 153/74 H 141/80 H 159/88 H Pulse Oximetry 95 96 92 07/02/21 10:31
[2021-07-02] MEDS: CEPHALEXIN 500 MG CAPSULE PO ×2 (18:01→20:44)
[2021-07-02] MEDS: metFORMIN HCL XR 500 MG TAB.SR.24H 1000 MG PO (18:01)
[2021-07-02] MEDS: LUBIPROSTONE 24 MCG CAPSULE PO (18:02)
[2021-07-02] MEDS: FLECAINIDE ACETATE 100 MG TABLET PO (20:42)
[2021-07-02] MEDS: QUEtiapine FUMARATE 100 MG TABLET PO (20:43)
[2021-07-02] MEDS: QUEtiapine FUMARATE 25 MG TABLET 50 MG PO (20:43)
[2021-07-03 06:00] VITALS: BP 137/56; PULSE 91; RESP 16; TEMP 36.6; O2SAT 100
[2021-07-03] MEDS: SODIUM CHLORIDE 0.9% IV 1,000 ML 125 ML IV CONT ×2 (06:08→14:33)
[2021-07-03] MEDS: CEPHALEXIN 500 MG CAPSULE PO ×3 (06:12→20:21)
[2021-07-03] MEDS: CYCLOBENZAPRINE HCL 10 MG TABLET PO ×3 (07:50→19:01)
[2021-07-03] MEDS: MORPHINE SULFATE (*CRX) 4 MG/ML INJ IV PUSH (07:51)
[2021-07-03] MEDS: FLECAINIDE ACETATE 100 MG TABLET PO ×2 (07:53→20:21)
[2021-07-03] MEDS: metFORMIN HCL XR 500 MG TAB.SR.24H 1000 MG PO ×2 (07:53→17:51)
[2021-07-03] MEDS: LUBIPROSTONE 24 MCG CAPSULE PO ×2 (07:53→17:51)
[2021-07-03] MEDS: PANTOPRAZOLE 40 MG TABLET PO ×2 (07:53→20:24)
[2021-07-03] MEDS: ATORVASTATIN 20 MG TABLET PO (07:54)
[2021-07-03] MEDS: QUEtiapine FUMARATE 25 MG TABLET 50 MG PO ×2 (07:54→20:21)
[2021-07-03] MEDS: DOCUSATE SODIUM 100 MG CAPSULE PO (07:56)
--- NOTE | 2021-07-03 10:57 | WPDUROPN2 ---
Progress Note: A&P Assessment and Plan (1) Postoperative ileus: Code(s): K91.89 - Other postprocedural complications and disorders of digestive system; K56.7 - Ileus, unspecified Status: Acute Assessment and Plan: We are going to give him a suppository. Encourage ambulation. Limit narcotics. Labs tomorrow. Discussed with patient and son. No signs of acute abdomen (2) History of prostate cancer: Code(s): Z85.46 - Personal history of malignant neoplasm of prostate Status: Acute Subjective Subjective Date/Time Seen: 07/03/21 10:57 He is still somewhat distended and uncomfortable. I talked with him and his son. They state they are passing less gas. He has not had a bowel movement. Reviewed his CT scan today. I discussed with Dr. byrd. Were going to give him a Dulcolax suppository and place him on nonnarcotic pain medication. I encouraged ambulation. He has no nausea or vomiting. He is tolerating clears, but eating little Exam Narrative: There is some flank bruising on the left. His abdomen is distended. There is no rebound or guarding. Incisions are clean. There is some subcutaneous crepitus consistent with recent laparoscopic procedure Objective Data Vital Signs Vital Signs: Vital Signs - 24 hr 07/02/21 11:30 07/02/21 12:32 07/02/21 13:30 Temperature Pulse Rate 92 91 112 H Respiratory Rate 19 18 18 Blood Pressure 142/86 H 152/69 H 172/92 H Pulse Oximetry 91 96 92 07/02/21 15:17 07/02/21 20:42 07/02/21 21:32 Temperature 97.7 F 98 F Pulse Rate 95 92 96 Respiratory Rate 20 12 Blood Pressure 144/80 H 140/70 Pulse Oximetry 94 94 07/03/21 06:00 Temperature 97.9 F Pulse Rate 91 Respiratory Rate 16 Blood Pressure 137/56 L Pulse Oximetry 100 Intake/Output Intake/Output: Intake & Output 06/30/21 07/01/21 07/02/21 07/03/21 23:59 23:59 23:59 23:59 Intake Total 2090 1100 Output Total 850 500 Balance 1240 600 Meds/Results Medications: Active Medications Generic Name Dose Route Start Last Admin Trade Name Freq PRN Reason Stop Dose Admin Atorvastatin Calcium 20 mg 07/03/21 09:00 07/03/21 07:54 Atorvastatin 20 Mg Tablet PO 20 mg DAILY DAREN Administration Bisacodyl 10 mg 07/03/21 10:54 Bisacodyl 10 Mg Suppository RECTAL 07/03/21 10:55 ONCE ONE Cephalexin HCl 500 mg 07/02/21 15:20 07/03/21 06:12 Cephalexin 500 Mg Capsule PO 500 mg Q8HR DAREN Administration Cyclobenzaprine HCl 10 mg 07/02/21 15:17 07/03/21 07:50 Cyclobenzaprine Hcl 10 Mg Tablet PO 10 mg TID PRN Administration muscle spasm Dextrose 12.5 gm 07/02/21 15:20 Dextrose 50% 25 Gm/50 Ml Syringe IV PUSH PRN PRN Hypoglycemia Protocol Docusate Sodium 100 mg 07/02/21 15:16 07/03/21 07:56 Docusate Sodium 100 Mg Capsule PO 100 mg Q12H PRN Administration Constipation Flecainide Acetate 100 mg 07/02/21 21:00 07/03/21 07:53 Flecainide Acetate 100 Mg Tablet PO 100 mg Q12HR DAREN Administration Glucagon 1 mg 07/02/21 15:20 Glucagon For Inj 1 Mg Vial IM PRN PRN Hypoglycemia Protocol Glucose 15 gm 07/02/21 15:20 Glucose Oral Gel 15 Gm Of Glucse In 37.5 Gm Tube PO PRN PRN Hypoglycemia Protocol Sodium Chloride 1,000 mls @ 125 mls/hr 07/02/21 09:55 07/03/21 06:08 Normal Saline Iv IV CONT 125 mls/hr .Q8H DAREN Administration Dextrose 1,000 mls @ 100 mls/hr 07/02/21 15:20 Dextrose 5% 1,000 Ml IVPB PRN PRN Hypoglycemia Protocol Acetaminophen 1,000 mg in 100 mls @ 400 mls/hr 07/03/21 10:51 Ofirmev 1,000 Mg Ivpb IVPB 07/04/21 10:50 Q6H PRN Pain Rated 4-6 Insulin Aspart 3 - 6 units 07/02/21 17:00 07/03/21 07:54 Insulin Aspart (*Bkc) 100 Units/Ml SUB-Q Not Given TIDWM DAREN Protocol Ketorolac Tromethamine 15 mg 07/03/21 10:51 Ketorolac 15 Mg/Ml Vial (*Bkc) IV PUSH Q6H PRN Pain Rated 4-6.
[2021-07-03] MEDS: KETOROLAC 15 MG/ML VIAL (*BKC) IV PUSH (11:17)
[2021-07-03] MEDS: BISACODYL 10 MG SUPPOSITORY RECTAL (11:17)
[2021-07-03 12:25] LABS: Glucose Point of Care 99 mg/dl (65-105)
[2021-07-03 14:25] VITALS: BP 132/60; PULSE 83; RESP 20; TEMP 36.2; O2SAT 95
[2021-07-03 16:10] LABS: Glucose Point of Care 93 mg/dl (65-105)
[2021-07-03 20:00] VITALS: PULSE 88; RESP 20; O2SAT 95
[2021-07-03 20:21] VITALS: PULSE 88
[2021-07-03] MEDS: QUEtiapine FUMARATE 100 MG TABLET PO (20:21)
[2021-07-03 20:35] LABS: Glucose Point of Care 90 mg/dl (65-105)
[2021-07-03 22:00] VITALS: BP 141/60; PULSE 86; RESP 12; TEMP 36.6; O2SAT 94
[2021-07-04] MEDS: SODIUM CHLORIDE 0.9% IV 1,000 ML 125 ML IV CONT ×2 (01:57→04:39)
[2021-07-04] MEDS: KETOROLAC 15 MG/ML VIAL (*BKC) IV PUSH (04:42)
[2021-07-04] MEDS: CEPHALEXIN 500 MG CAPSULE PO ×3 (04:47→21:34)
[2021-07-04 05:23] VITALS: BP 149/70; PULSE 89; RESP 18; TEMP 37; O2SAT 95
--- NOTE | 2021-07-04 06:21 | WPDUROPN2 ---
Progress Note: A&P Assessment and Plan (1) History of prostate cancer: Code(s): Z85.46 - Personal history of malignant neoplasm of prostate Status: Acute (2) Postoperative ileus: Code(s): K91.89 - Other postprocedural complications and disorders of digestive system; K56.7 - Ileus, unspecified Status: Acute Additional Plan Responded to suppository -> bowel movements, passing flatus and abd. less distended. Await morning labs. Advance diet later today if does well this morning. Subjective Subjective Date/Time Seen: 07/04/21 06:21 Following suppository yesterday, bowel movements x4 and passing gas. Uncomfortable from bladder spasms this morning. Review of Systems Review of Systems: ROS unobtainable: Yes other (unable to obtain/no one to interpret) Exam Const: General: no acute distress Resp: Effort & Inspection: normal respiratory effort GI: Inspection: non-distended and incision (clean and dry) GI Palp: No abdominal tenderness and No Guarding due to palpation present (GI) Auscultation: Hypoactive bowel sounds present Urinary Catheter: Urinary Catheter: patent and draining and urine clear Objective Data Vital Signs Vital Signs: Vital Signs - 24 hr 07/03/21 14:25 07/03/21 20:00 07/03/21 20:21 Temperature 97.1 F L Pulse Rate 83 88 88 Respiratory Rate 20 20 Blood Pressure 132/60 Pulse Oximetry 95 95 07/03/21 22:00 07/04/21 05:23 Temperature 97.8 F 98.6 F Pulse Rate 86 89 Respiratory Rate 12 18 Blood Pressure 141/60 H 149/70 H Pulse Oximetry 94 95 Intake/Output Intake/Output: Intake & Output 07/01/21 07/02/21 07/03/21 07/04/21 23:59 23:59 23:59 23:59 Intake Total 2090 3520 1240 Output Total 050 340 6254 Balance 1240 2670 -310 Meds/Results Medications: Active Medications Generic Name Dose Route Start Last Admin Trade Name Freq PRN Reason Stop Dose Admin Atorvastatin Calcium 20 mg 07/03/21 09:00 07/03/21 07:54 Atorvastatin 20 Mg Tablet PO 20 mg DAILY DAREN Administration Cephalexin HCl 500 mg 07/02/21 15:20 07/04/21 04:47 Cephalexin 500 Mg Capsule PO 500 mg Q8HR DAREN Administration Cyclobenzaprine HCl 10 mg 07/02/21 15:17 07/03/21 19:01 Cyclobenzaprine Hcl 10 Mg Tablet PO 10 mg TID PRN Administration muscle spasm Dextrose 12.5 gm 07/02/21 15:20 Dextrose 50% 25 Gm/50 Ml Syringe IV PUSH PRN PRN Hypoglycemia Protocol Docusate Sodium 100 mg 07/02/21 15:16 07/03/21 07:56 Docusate Sodium 100 Mg Capsule PO 100 mg Q12H PRN Administration Constipation Flecainide Acetate 100 mg 07/02/21 21:00 07/03/21 20:21 Flecainide Acetate 100 Mg Tablet PO 100 mg Q12HR DAREN Administration Glucagon 1 mg 07/02/21 15:20 Glucagon For Inj 1 Mg Vial IM PRN PRN Hypoglycemia Protocol Glucose 15 gm 07/02/21 15:20 Glucose Oral Gel 15 Gm Of Glucse In 37.5 Gm Tube PO PRN PRN Hypoglycemia Protocol Sodium Chloride 1,000 mls @ 125 mls/hr 07/02/21 09:55 07/04/21 04:39 Normal Saline Iv IV CONT 125 mls/hr .Q8H DAREN Administration Dextrose 1,000 mls @ 100 mls/hr 07/02/21 15:20 Dextrose 5% 1,000 Ml IVPB PRN PRN Hypoglycemia Protocol Acetaminophen 1,000 mg in 100 mls @ 400 mls/hr 07/03/21 10:51 Ofirmev 1,000 Mg Ivpb IVPB 07/04/21 10:50 Q6H PRN Pain Rated 4-6 Insulin Aspart 3 - 6 units 07/02/21 17:00 07/03/21 17:49 Insulin Aspart (*Bkc) 100 Units/Ml SUB-Q Not Given TIDWM DAREN Protocol Lubiprostone 24 mcg 07/02/21 17:00 07/03/21 17:51 Lubiprostone 24 Mcg Capsule PO 24 mcg BID DAREN Administration Metformin HCl 1,000 mg 07/02/21 17:00 07/03/21 17:51 Metformin Hcl Xr 500 Mg Tab.Sr.24h PO 1,000 mg BID DAREN Administration Ondansetron HCl 4 mg 07/02/21 09:51 Ondansetron Inj 4 Mg/2 Ml Vial IV PUSH Q4H PRN Nausea Pantoprazole Sodium 40 mg 07/03/21 09:00
[2021-07-04 06:44] LABS: Hematocrit 22.7 % (42.0-52.0); Hemoglobin 7.6 g/dL (14.0-18.0); Mean Corpuscular HGB Conc 33.5 g/dl (32-36); Mean Corpuscular Hemoglobin 28.9 pg (26-34); Mean Corpuscular Volume 86.3 fl (80-100); Mean Platelet Volume 9.2 fl (7.4-10.4); Platelet Count Result 287 k/mm3 (150-375); Red Blood Count 2.63 M/mm3 (4.6-6.20); Red Cell Distribution Width 16.2 % (11.5-14.5); White Blood Count 8.7 K/mm3 (4.5-10.0)
[2021-07-04 06:56] LABS: Anion Gap 8 mmol/L (8-16); Blood Urea Nitrogen 9 mg/dL (9-20); Calcium 8.1 mg/dL (8.4-10.2); Carbon Dioxide 21 mmol/L (22-30); Chloride 109 mmol/L (98-107); Estimated CRCL calculation 72 ml/min; Estimated Glomerular Filt Rate > 60; Glucose 95 mg/dL (65-110); Potassium 3.5 mmol/L (3.4-5.0); Sodium 138 mmol/L (137-145)
[2021-07-04] MEDS: CYCLOBENZAPRINE HCL 10 MG TABLET PO ×4 (07:59→17:48)
[2021-07-04 08:05] LABS: Glucose Point of Care 90 mg/dl (65-105)
[2021-07-04] MEDS: PANTOPRAZOLE 40 MG TABLET PO ×2 (08:06→19:46)
[2021-07-04] MEDS: QUEtiapine FUMARATE 25 MG TABLET 50 MG PO ×2 (08:06→19:47)
[2021-07-04] MEDS: ATORVASTATIN 20 MG TABLET PO (08:06)
[2021-07-04] MEDS: metFORMIN HCL XR 500 MG TAB.SR.24H 1000 MG PO ×2 (08:06→17:48)
[2021-07-04 08:07] VITALS: PULSE 85
[2021-07-04] MEDS: FLECAINIDE ACETATE 100 MG TABLET PO ×2 (08:07→19:46)
[2021-07-04] MEDS: LUBIPROSTONE 24 MCG CAPSULE PO ×2 (08:12→17:48)
[2021-07-04 11:52] LABS: Glucose Point of Care 93 mg/dl (65-105)
[2021-07-04 14:00] VITALS: BP 148/68; PULSE 77; RESP 18; TEMP 36.2; O2SAT 98
[2021-07-04 17:00] LABS: Glucose Point of Care 98 mg/dl (65-105)
[2021-07-04] MEDS: HYDROcodone/acetaminophen (*CRX) 5-325 MG TABLET 1 TAB PO (19:45)
[2021-07-04 19:46] VITALS: PULSE 81
[2021-07-04] MEDS: QUEtiapine FUMARATE 100 MG TABLET PO (19:46)
[2021-07-04 19:52] VITALS: BP 141/68; PULSE 81; RESP 16; TEMP 37; O2SAT 97
[2021-07-05 06:00] VITALS: BP 151/71; PULSE 71; RESP 16; O2SAT 96
[2021-07-05 06:00] LABS: Hematocrit 23.1 % (42.0-52.0); Hemoglobin 7.8 g/dL (14.0-18.0); Mean Corpuscular HGB Conc 33.8 g/dl (32-36); Mean Corpuscular Hemoglobin 29.2 pg (26-34); Mean Corpuscular Volume 86.5 fl (80-100); Mean Platelet Volume 8.7 fl (7.4-10.4); Platelet Count Result 311 k/mm3 (150-375); Red Blood Count 2.67 M/mm3 (4.6-6.20); Red Cell Distribution Width 16.3 % (11.5-14.5); White Blood Count 8.3 K/mm3 (4.5-10.0)
[2021-07-05] MEDS: CEPHALEXIN 500 MG CAPSULE PO ×2 (06:01→13:42)
[2021-07-05] MEDS: HYDROcodone/acetaminophen (*CRX) 5-325 MG TABLET 1 TAB PO ×3 (06:04→16:40)
[2021-07-05 06:17] LABS: Anion Gap 6 mmol/L (8-16); Blood Urea Nitrogen 9 mg/dL (9-20); Calcium 8.3 mg/dL (8.4-10.2); Carbon Dioxide 23 mmol/L (22-30); Chloride 109 mmol/L (98-107); Estimated CRCL calculation 64 ml/min; Estimated Glomerular Filt Rate > 60; Glucose 102 mg/dL (65-110); Potassium 3.6 mmol/L (3.4-5.0); Sodium 138 mmol/L (137-145)
--- NOTE | 2021-07-05 06:23 | WPDUROPN2 ---
Progress Note: A&P Assessment and Plan (1) Prostate cancer: Code(s): C61 - Malignant neoplasm of prostate Status: Acute Assessment and Plan: Advance to regular diet today. Possibly home later today if tolerated reg. diet. Subjective Subjective Date/Time Seen: 07/05/21 06:23 Comfortable/no abdominal pain, tolerating diet Review of Systems Cardiovascular: Cardiovascular: Denies chest pain, Denies lightheadedness, Denies palpitations and Denies dyspnea Respiratory: Respiratory: Denies dyspnea Gastrointestinal: Gastrointestinal: Denies diarrhea, Denies nausea and Denies vomiting Genitourinary: Genitourinary: Denies hematuria and Denies dysuria Endocrine: Endocrine: Denies palpitations Exam Const: General: no acute distress Resp: Effort & Inspection: normal respiratory effort GI: Inspection: non-distended GI Palp: No abdominal tenderness and No Guarding due to palpation present (GI) Auscultation: normal bowel sounds Objective Data Vital Signs Vital Signs: Vital Signs - 24 hr 07/04/21 08:07 07/04/21 14:00 07/04/21 19:46 Temperature 97.1 F L Pulse Rate 85 77 81 Respiratory Rate 18 Blood Pressure 148/68 H Pulse Oximetry 98 07/04/21 19:52 07/05/21 06:00 Temperature 98.6 F Pulse Rate 81 71 Respiratory Rate 16 16 Blood Pressure 141/68 H 151/71 H Pulse Oximetry 97 96 Intake/Output Intake/Output: Intake & Output 07/02/21 07/03/21 07/04/21 07/05/21 23:59 23:59 23:59 23:59 Intake Total 2090 3520 3080 400 Output Total 201 394 1918 450 Balance 1240 2670 480 -50 Meds/Results Medications: Active Medications Generic Name Dose Route Start Last Admin Trade Name Freq PRN Reason Stop Dose Admin Hydrocodone Bitart/Acetaminophen 1 tab 07/04/21 12:46 07/05/21 06:04 Hydrocodone/Acetaminophen (*Crx) 5-325 Mg Tablet PO 1 tab Q4H PRN Administration Pain Rated 4-6 Atorvastatin Calcium 20 mg 07/03/21 09:00 07/04/21 08:06 Atorvastatin 20 Mg Tablet PO 20 mg DAILY DAREN Administration Cephalexin HCl 500 mg 07/02/21 15:20 07/05/21 06:01 Cephalexin 500 Mg Capsule PO 500 mg Q8HR DAREN Administration Cyclobenzaprine HCl 10 mg 07/02/21 15:17 07/04/21 17:48 Cyclobenzaprine Hcl 10 Mg Tablet PO 10 mg TID PRN Administration muscle spasm Dextrose 12.5 gm 07/02/21 15:20 Dextrose 50% 25 Gm/50 Ml Syringe IV PUSH PRN PRN Hypoglycemia Protocol Docusate Sodium 100 mg 07/02/21 15:16 07/03/21 07:56 Docusate Sodium 100 Mg Capsule PO 100 mg Q12H PRN Administration Constipation Flecainide Acetate 100 mg 07/02/21 21:00 07/04/21 19:46 Flecainide Acetate 100 Mg Tablet PO 100 mg Q12HR DAREN Administration Glucagon 1 mg 07/02/21 15:20 Glucagon For Inj 1 Mg Vial IM PRN PRN Hypoglycemia Protocol Glucose 15 gm 07/02/21 15:20 Glucose Oral Gel 15 Gm Of Glucse In 37.5 Gm Tube PO PRN PRN Hypoglycemia Protocol Dextrose 1,000 mls @ 100 mls/hr 07/02/21 15:20 Dextrose 5% 1,000 Ml IVPB PRN PRN Hypoglycemia Protocol Insulin Aspart 3 - 6 units 07/02/21 17:00 07/04/21 17:45 Insulin Aspart (*Bkc) 100 Units/Ml SUB-Q Not Given TIDWM DAREN Protocol Lubiprostone 24 mcg 07/02/21 17:00 07/04/21 17:48 Lubiprostone 24 Mcg Capsule PO 24 mcg BID DAREN Administration Metformin HCl 1,000 mg 07/02/21 17:00 07/04/21 17:48 Metformin Hcl Xr 500 Mg Tab.Sr.24h PO 1,000 mg BID DAREN Administration Ondansetron HCl 4 mg 07/02/21 09:51 Ondansetron Inj 4 Mg/2 Ml Vial IV PUSH Q4H PRN Nausea Pantoprazole Sodium 40 mg 07/03/21 09:00 07/04/21 19:46 Pantoprazole 40 Mg Tablet PO 40 mg Q12HR DAREN Administration Quetiapine Fumarate 50 mg 07/02/21 21:00 07/04/21 19:47 Quetiapine Fumarate 25 Mg Tablet PO 50 mg Q12HR DAREN Administration Quetiapine Fumarate 100 mg 07/02/21 21:00 07/04/21 19:46 Quetiapine
[2021-07-05 08:17] LABS: Glucose Point of Care 113 mg/dl (65-105)
[2021-07-05 09:26] VITALS: PULSE 86
[2021-07-05] MEDS: ATORVASTATIN 20 MG TABLET PO (09:26)
[2021-07-05] MEDS: FLECAINIDE ACETATE 100 MG TABLET PO (09:26)
[2021-07-05] MEDS: metFORMIN HCL XR 500 MG TAB.SR.24H 1000 MG PO ×2 (09:27→16:40)
[2021-07-05] MEDS: LUBIPROSTONE 24 MCG CAPSULE PO ×2 (09:27→16:40)
[2021-07-05] MEDS: QUEtiapine FUMARATE 25 MG TABLET 50 MG PO (09:28)
[2021-07-05] MEDS: PANTOPRAZOLE 40 MG TABLET PO (09:28)
[2021-07-05 12:07] LABS: Glucose Point of Care 146 mg/dl (65-105)
[2021-07-05 14:00] VITALS: BP 137/70; PULSE 79; RESP 16; TEMP 36.6; O2SAT 99
[2021-07-05 16:54] LABS: Glucose Point of Care 100 mg/dl (65-105)
--- NOTE | 2021-07-05 16:57 | PM.DS ---
DS: Admitting Diagnosis Discharge Date 07/05/2021 @ 1700 Admitting Diagnosis 1. Prostate cancer 2. Postoperative adynamic ileus DS: Discharge Diagnosis Discharge Diagnosis (1) Prostate cancer: Code(s): C61 - Malignant neoplasm of prostate Status: Acute (2) Postoperative ileus: Code(s): K91.89 - Other postprocedural complications and disorders of digestive system; K56.7 - Ileus, unspecified Status: Acute DS: Summary Hospital Course Hospital Course: Patient had recently been discharged following an uneventful robotic prostatectomy. He presented with abdominal pain. CT imaging revealed findings consistent with an adynamic ileus. He had a small hematoma in the right hemipelvis this was not likely clinically significant. With supportive care his bowel function returned within 48 hours. His diet was advanced and he tolerated liquids and eventually regular diet prior to discharge. With a to collect suppository he had 4 small bowel movements and was consistently passing flatus. He felt much better at the time of discharge. Have a postoperative anemia with no signs of acute blood loss. His vital signs were stable throughout. Time Spent with Patient Time attestation: Total time spent providing and/or coordinating discharge services:15 min Exam Const: General: no acute distress Resp: Effort & Inspection: normal respiratory effort GI: Inspection: non-distended GI Palp: No abdominal tenderness and No Guarding due to palpation present (GI) Auscultation: normal bowel sounds DS: Data Data Completed and Pending Labs on day of discharge: Labs from last 24 hours 07/05/21 07/05/21 07/05/21 16:40 11:58 08:12 WBC RBC Hgb Hct MCV MCH MCHC RDW Plt Count MPV Sodium Potassium Chloride Carbon Dioxide Anion Gap BUN Creatinine Estim Creat Clear Calc Estimated GFR Glucose POC Capillary Glucose 100 146 H 113 H Calcium 07/05/21 07/05/21 07/04/21 05:40 05:40 16:56 WBC 8.3 RBC 2.67 L Hgb 7.8 L Hct 23.1 L MCV 86.5 MCH 29.2 MCHC 33.8 RDW 16.3 H Plt Count 311 MPV 8.7 Sodium 138 Potassium 3.6 Chloride 109 H Carbon Dioxide 23 Anion Gap 6 L BUN 9 Creatinine 0.80 Estim Creat Clear Calc 64 Estimated GFR > 60 Glucose 102 POC Capillary Glucose 98 Calcium 8.3 L Discharge Plan Discharge Attending physician on discharge: Gumaro Steward Discharging Clinician: Gumaro Steward Patient Disposition: Home, Self-Care Activity: may shower Diet: as tolerated Patient Instructions: Antibiotic Form, Warfarin (By mouth), Ileus (DC) Stand Alone Forms: General Discharge Information Follow-up/Referrals: Gumaro Steward MD [Physician] - Discharge Medications: New hydrocodone-acetaminophen 5-325 mg tablet 1 - 2 tablet PO Q6H PRN (Reason: pain) Qty: 30 RF: 0 hyoscyamine sulfate 0.125 mg tablet 0.125 mg PO Q6H PRN (Reason: bladder spasms) Qty: 20 RF: 2 Continued cyclobenzaprine 10 mg tablet 10 mg PO TID PRN (Reason: muscle spasm) Qty: 90 RF: 11 esomeprazole magnesium [Nexium] 40 mg capsule,delayed release(DR/EC) 40 mg PO DAILY Qty: 90 RF: 3 warfarin 4 mg tablet 4 mg PO EVERY OTHER DAY RF: 0 Hold Instructions: Resume on 07/02/21. warfarin [Jantoven] 3 mg tablet 3 mg PO EVERY OTHER DAY RF: 0 Hold Instructions: Resume on 07/02/21. metformin 500 mg tablet extended release 24 hr 1,000 mg PO BID RF: 0 cephalexin 500 mg capsule 500 mg PO Q8H Qty: 15 RF: 0 docusate sodium [Colace] 100 mg capsule 100 mg PO DAILY Qty: 30 RF: 0 hydrocodone-acetaminophen 5-325 mg tablet 1 tablet PO Q6H PRN (Reason: Pain) RF: 0 flecainide 100 mg tablet 100 mg PO Q12H RF: 0 atorvastatin 20 mg tablet 20 mg PO DAILY RF: 0 Hold Instructions: Patient no longer taking Amitiza 24 mcg cap
== END 2021-07-05 17:58 | disposition home or self-care (01) | DRG 394 ==
LOC: ANHED 09:56 → ANH3MEDSUR 11:22 → ANH3MED 14:54
PROVIDERS: General Practice; Admitting Provider Urology; Emergency Provider Emergency Medicine; PCP Family Medicine; Visit Provider Urology
DX: K91.89 Other postprocedural complications and disorders of digestive system (principal); K56.0 Paralytic ileus; I48.20 Chronic atrial fibrillation, unspecified; N99.840 Postprocedural hematoma of a genitourinary system organ or structure following a genitourinary system procedure; Z23 Encounter for immunization; Z85.46 Personal history of malignant neoplasm of prostate; I25.10 Atherosclerotic heart disease of native coronary artery without angina pectoris; F41.9 Anxiety disorder, unspecified; L30.9 Dermatitis, unspecified; G47.33 Obstructive sleep apnea (adult) (pediatric); D50.9 Iron deficiency anemia, unspecified; F17.210 Nicotine dependence, cigarettes, uncomplicated; Z86.16 Personal history of COVID-19
CPT/HCPCS: 36415; 74177; 80048; 80053; 81001; 82948; 83605; 83690; 85014; 85018; 85025; 85027; 85610; 85730; 87086; 88302; 88305; 88307; 88309; 90471; 90653; 96361; 96365; 96375; 96376; 99285; A9270; G0008; G0378; J0131; J0330; J0690; J1170; J1885; J2270; J2370; J2405; J2704; J2710; J3010; J7030; J7120; Q9967

== ENCOUNTER 2021-07-08 11:04 | Outpatient (CLI) | payer MEDICARE, SELFPAY ==
--- NOTE | ~2021-07-08 | XR_ITS ---
EXAMINATION: XR cystogram DATE: 07/08/2021 11:45 INDICATION: Prostate cancer TECHNIQUE: Water-soluble contrast was gravity-infused through the patient's Hercules catheter. Multiple fluoroscopic images were obtained. Fluoroscopy exposure time was 1.0 minutes. The DAP for this proced ure was 27.938 Gycm2. COMPARISON: 01/28/2019 FINDINGS: No bladder leak is identified. There are phleboliths of the left pelvis. The visualized oss eous structures are unremarkable. The bowel gas pattern is normal. IMPRESSION: 1. No bladder leak identified. Reviewed, dictated and finalized at location A. 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
== END 2021-07-08 11:05 | disposition home or self-care (01) ==
LOC: ANHIMG 11:06
PROVIDERS: PCP Family Medicine; Visit Provider Urology
DX: C61 Malignant neoplasm of prostate (principal)
CPT/HCPCS: 51600; 74430; Q9967

== ENCOUNTER 2021-12-05 14:11 | Outpatient (CLI) | payer MEDICARE, MEDICAID, SELFPAY ==
--- NOTE | ~2021-12-05 | US_ITS ---
US retroperitoneal comp 12/05/2021 15:01 Procedure: Realtime transabdominal ultrasound of the kidneys and bladder. Indication: Right lower quadrant pain Comparison: 05/06/2008 Findings: Renal echotexture is normal bilaterally without contour deforming mass or renal calculus. T here is moderate left hydronephrosis. The right kidney measures 11.7 cm and left kidney measures 10.6 cm. Bladder within normal limits. Impression: 1: Moderate left hydronephrosis. Reviewed, dictated and finalized at location A. Impression: 1: Moderate left hydronephrosis.
== END 2021-12-05 14:12 | disposition home or self-care (01) ==
PROVIDERS: Visit Provider Nurse Practitioner Adult Health
DX: N13.30 Unspecified hydronephrosis (principal); R10.31 Right lower quadrant pain
CPT/HCPCS: 76770

== ENCOUNTER 2021-12-08 08:30 | Day surgery (SDC) | payer MEDICARE, MEDICAID, SELFPAY ==
[2021-12-08] VITALS (7 sets, daily range): BP systolic 137–176; BP diastolic 72–93; PULSE 67–80; RESP 8–20; TEMP 36.2–36.4; O2SAT 98–100; BMI 27.6
--- NOTE | ~2021-12-08 | XR_ITS ---
EXAMINATION: XR retrograde pyelo w/stent BI DATE: 12/08/2021 14:34 INDICATION: Flank pain. TECHNIQUE: Fluoroscopic images from a bilateral internal ureteral stent placement are submitted for maye cervantes. 57 seconds of fluoroscopy time. FINDINGS: There is a bilateral double-J internal ureteral stent projecting in expected position, with proximal [place] loop at the level of the renal pelvis and distal loop in the pelvis within the bladder lumen. IMPRESSION: 1. Bilateral internal ureteral stent placement. Please refer to real-time procedural findings for d etails. Reviewed, dictated and finalized at location B. IMPRESSION: 1. Bilateral internal ureteral stent placement. Please refer to real-time pro cedural findings for details.
--- NOTE | 2021-12-08 09:59 | PC.NURSE ---
Report to the Outpatient Waiting Room, entrance under the green pavilion located off [facility], at time _1145 on date _12/08/21 . OR Time: ___1345 . - You and your visitor will be asked a series of questions to screen for COVID 19 for your protection. - Only one visitor is allowed at this time. - The patient visitor is requested to leave or wait in car when not with patient. - A mask is required within the hospital. Patients may have clear liquids (water, carbonated beverages, clear teas, apple juice) until 3 hours prior to surgery (1045 AM) with a maximum of 20 ounces. - No food from midnight until time of surgery - Infants may have breast milk until 4 hours before surgery, infant formula 6 hours prior to surgery. - Children will be allowed to drink immediately following surgery. If applicable, please bring a bottle or sippy cup to assist with drinking. Juice, water, soda, and popsicles are readily available. For infants on formula, please bring formula the day of surgery. Pacifiers are allowed. Take the following medications with a SIP of water the morning of surgery: PAIN PILL IF NEEDED Medications to discontinue per physician Date to take last dose Please no make-up, nail [place], hairspray, perfume, deodorant, or body powder the day of surgery. No jewelry (including any body piercings) or valuables the day of surgery, leave them at home. Please take a shower or bath the night before, or the morning of, surgery with an antibacterial soap. Wear comfortable, loose fitting clothing. Children are encouraged to wear pajamas. - Jewelry must be removed prior to entering the operating room. Rings and piercings that are not removed may be cut off. - The hospital will not accept responsibility for valuables. - Please leave all valuables, including medications, at home the day of surgery. If you are going home after surgery, a licensed [employer] company driver must drive you home. - NO public transportation without another adult. - We recommend that an adult stay with you for 24 hours following discharge. - We also recommend that you do not drive, make important decision, drink alcoholic beverages, or take any drugs that were not prescribed by your health care provider for at least 24 hours after your discharge time. For Pediatric surgeries, we recommend two adults accompany the child home (only one inside the building at this time). Follow any additional instructions given to you from your surgeon. If you or anyone in your household have experienced Covid symptoms in the past week, please notify your surgeon or the nurse liaison at the phone number below for possible testing. Telephone instructions given to _PT'S__DAUGHTER and asked if any additional questions and then verbalized understanding. Patient advised to call surgeon office or pre surgery nurse liaison [phone] if any additional questions.
--- NOTE | 2021-12-08 11:49 | WPDANESEPPF ---
Anes - Initial Pre Proc Eval Procedure: Operation Date: 12/08/21 13:45 Proposed Procedures p Cystoscopy, Bilateral Retrograde Pyelogram, Left Stent Placement - Gumaro Steward MD Date/Time: 12/08/21 11:49 Surgeon: Gumaro Steward MD Pre Op Diagnosis: left hydronephrosis Patient Data Age: 76 Gender: M Height: 1.7 m Weight: 80 kg Allergies Allergy/AdvReac Type Severity Reaction Status Date / Time No Known Allergies Allergy Verified 12/08/21 11:15 Home Medications Medication Instructions Recorded Confirmed Type atorvastatin 20 mg tablet 20 mg PO DAILY 06/04/19 12/08/21 History flecainide 100 mg tablet 100 mg PO Q12H 06/04/19 12/08/21 History ferrous sulfate 325 mg (65 mg 325 mg PO DAILY #30 tablet 01/19/21 12/08/21 Rx iron) tablet metformin 1,000 mg PO BID 06/23/21 12/08/21 History warfarin [Jantoven] 3 mg PO EVERY OTHER DAY 06/23/21 12/08/21 History zolpidem 10 mg tablet 10 mg PO .QHS PRN #30 tablet 07/18/21 12/08/21 Rx esomeprazole magnesium 40 mg 40 mg PO DAILY #90 cap 08/31/21 12/08/21 Rx capsule,delayed release lubiprostone 24 mcg capsule 24 mcg PO BID #60 cap 08/31/21 12/08/21 Rx quetiapine 100 mg tablet 100 mg PO .COMPLEX #60 tablet 09/12/21 12/08/21 Rx cyclobenzaprine 10 mg tablet 10 mg PO TID PRN #90 tablet 09/21/21 12/08/21 Rx abiraterone 500 mg tablet 500 mg PO QAM tablet 11/07/21 12/08/21 History alprazolam 0.5 mg tablet 0.5 mg PO TID PRN #90 tablet 11/07/21 12/08/21 Rx duloxetine 60 mg capsule,delayed 60 mg PO DAILY #30 cap 11/07/21 12/08/21 Rx release oxycodone-acetaminophen 10 mg-325 1 tablet PO Q6H PRN #120 tablet 11/07/21 12/08/21 Rx mg tablet prednisone 5 mg tablet 5 mg PO DAILY 11/07/21 12/08/21 History Patient hx anesthesia problems: none Family hx anesthesia problems: none Results Review: All pre-operative results and documents have been reviewed as part of the pre-operative evaluation. [facility]LY [facility] Past Medical History Medical History (Updated 12/08/21 @ 11:52 by Viet Flores MD) Anemia (11/02/20) hemoglobin 12.7 on 11/02/2020 At high risk for falls Atrial fibrillation BMI 28.0-28.9,adult BMI 29.0-29.9,adult BMI 30.0-30.9,adult CAD (coronary artery disease), [place] coronary artery Chronic anxiety Chronic pain of left knee COVID-19 virus detected (~02/16/20) Eczema Elevated PSA, between 10 and less than 20 ng/ml (11/02/20) PSA 16.3 on 11/02/2020 Eosinophilia (~11/02/20) eosinophil count 1248 on 11/02/2020 Folliculitis Iron deficiency anemia, unspecified total iron 31 with 7% saturation and ferritin 44 with hemoglobin 12.8 on 01/18/2021 Keloid scar Mixed hyperlipidemia Nocturia Obstructive sleep apnea on CPAP Overweight (BMI 25.0-29.9) Paroxysmal atrial fibrillation Prostate cancer Tinea cruris Tobacco use disorder, continuous Type 2 diabetes mellitus without complication, without long-term current use of insulin Family History Family History Mother Family history of malignant neoplasm Father Family history of malignant neoplasm Social History Social History Smoking packs per day: 0.5 Smoking cigarettes per day: 10.0 Years smoked: 50 Smoking pack-years: 25.00 Smoking status: Current every day smoker Tobacco type: cigarettes Additional smoking assessment comments: DAUGHTER STATES SMOKER IN THE PAST - NOW WILL LIGHT ONE AND TAKE A PUFF Alcohol intake: former Drinks per week: 1 Alcohol use details: DAUGHTER STATES HEAVY DRINKER IN THE PAST Substance use: never Substance use type: does not use Additional living arrangements comments: [facility] Spiritual care concerns: No Anes - Eval Final PreProcedure Day of Procedure 12/08/21 11:49 Patient weight: obese Heart: regular rate and rhythm Lungs: clear to auscultation and normal air movement Airway: Mallampati scal
[2021-12-08] MEDS: LACTATED RINGERS 1,000 ML 30 ML IV CONT (12:55)
[2021-12-08 13:01] LABS: Glucose Point of Care 87 mg/dl (65-105)
[2021-12-08 14:00] LABS: INR 1.6; Prothrombin Time 18.7 Seconds (11.1-14.7)
[2021-12-08 14:01] LABS: Partial Thromboplastin Time 32.4 SECONDS (22.3-36.8)
[2021-12-08] MEDS: ceFAZolin 2 GM/D5W 50 ML 2 GM/50 ML BAG IVPB (14:01)
[2021-12-08] MEDS: LIDOCAINE HCL 2% GEL UROJET 10 ML PKG MUCOUS MEM (14:15)
--- NOTE | 2021-12-08 14:41 | W.PM.PROC2 ---
Procedure Note - Detailed Date of Procedure 12/08/21 Pre-op Diagnosis Left hydronephrosis, right flank pain Post-op Diagnosis Same Procedure Performed Cystoscopy, bilateral retrograde pyelography, bilateral ureteral stent placement Surgeon Gumaro Steward MD Anesthesia General Findings 1. Left ureteral obstruction in the mid ureter resulting from extrinsic compression (retroperitoneal lymphadenopathy) 2. No a clear right ureteral obstruction Description of Procedure patient is brought the op suite reach prepped draped in routine sterile fashion while in dorsal lithotomy position. 2% xylocaine jelly was introduced intraurethrally and a general LMA anesthetic was administered. Cystoscopy is undertaken with a 19 F rigid cystoscope. He has no prostate, having been removed via a radical prostatectomy. Bladder mucosa is normal. No intravesical foreign body neoplasm. Bilateral retrograde pyelograms were obtained with an 8 F bulb-tipped catheter. There was no apparent obstruction, filling defects or other pathology on the right side ureteral pyelogram. On the left there was concentric narrowing of the left mid ureter consistent with extrinsic compression from retroperitoneal adenopathy. Given the fact he has considerable right flank pain and did not place bilateral ureteral stents. A 4.8 F variable length stent was placed on the right and 6 F variable length stent placed on the left. Each stent was positioned with the proximal coil in the renal pelvis and distal coil in the bladder. Scopes and wires removed and he was taken recovery room good condition. Drains Yes Packing No Pathology None sent Complications No immediate complications Condition Stable Disposition PACU
== END 2021-12-08 16:10 | disposition home or self-care (01) ==
PROVIDERS: Anesthesiology; PCP Family Medicine; Visit Provider Urology
PROC: (CPT 52352; principal; 2021-12-08 13:45)
DX: N13.5 Crossing vessel and stricture of ureter without hydronephrosis (principal); R10.31 Right lower quadrant pain; R59.0 Localized enlarged lymph nodes; C61 Malignant neoplasm of prostate; D50.9 Iron deficiency anemia, unspecified; I25.10 Atherosclerotic heart disease of native coronary artery without angina pectoris; F41.9 Anxiety disorder, unspecified; E78.2 Mixed hyperlipidemia; G47.33 Obstructive sleep apnea (adult) (pediatric); I48.0 Paroxysmal atrial fibrillation; I10 Essential (primary) hypertension; E78.00 Pure hypercholesterolemia, unspecified; E11.9 Type 2 diabetes mellitus without complications; Z79.84 Long term (current) use of oral hypoglycemic drugs; Z79.01 Long term (current) use of anticoagulants; Z79.891 Long term (current) use of opiate analgesic; F17.210 Nicotine dependence, cigarettes, uncomplicated; E66.9 Obesity, unspecified; Z68.28 Body mass index [BMI] 28.0-28.9, adult
CPT/HCPCS: 52332; 36415; 74420; 80047; 80053; 82948; 83735; 85025; 85610; 85730; 96372; 96402; A9270; C1758; C1769; C2617; J0690; J0897; J2405; J2704; J3010; J7120; J9217; Q9966

== ENCOUNTER → 2022-03-24 14:09 | Outpatient (CLI) | payer MEDICARE, MEDICAID, SELFPAY ==
--- NOTE | ~2022-03-24 | DEXA_ITS ---
Bone Density Report Name: JARRELL LEE Age: 76 Sex: Male Ethnicity: White Date of : 1945 Indication: screening for osteoporosis; prior fracture; cancer; Referring Provider: Trent Nicholas Study: Bone densitometry was performed. Exam Date: March 24, 2022 Accession number: [id number] Bone Density: Region BMD T-score Z-score Classification AP Spine (L1-L4) 0.997 -0.9 0.2 Normal Femoral Neck (Left) 0.706 -1.6 -0.2 Osteopenia Total Hip (Left) 0.858 -1.2 -0.3 Osteopenia Femoral Neck (Right) 0.645 -2.1 -0.7 Osteopenia Total Hip (Right) 0.865 -1.1 -0.2 Osteopenia Total Hip Mean 0.862 -1.2 -0.3 Osteopenia World Health Organization criteria for BMD impression classify patients as: Normal (T-score at or above -1.0), Osteopenia (T-score between -1.0 and -2.5), or Osteoporosis (T-score at or below -2.5). 10-year Fracture Risk(1): Major Osteoporotic Fracture 13% Hip Fracture 6.7% Reported Risk Factors: [place] (), Neck BMD=0.645, BMI=29.7, previous fracture, smoking (1) FRAX(R) Version 3.08. Fracture probability calculated for an untreated patient. Fracture probability may be lower if the patient has received treatment. Clinical Information Provided by Patient: Has had a low trauma fracture Smokes Has used the following medications: Vitamin D Has the following medical conditions: Cancer Patient maximum height was 67 No regular weight bearing exercise Does not regularly consume dairy products Impression: The patient has low bone mass, based on the Right Femoral Neck T-score. The patient has an estimated ten-year risk of hip fracture of 6.7% and an estimated ten-year risk of major fracture of 13%, based on the WHO FRAX algorithm. The patient has risk factors, including: smoking, previous fracture. Discussion: BONE DENSITY IS LOW AT ONE OR MORE SKELETAL SITES. THE PATIENT'S BMD AND CLINICAL RISK FACTORS CONTRIBUTE TO THIS PATIENT'S INCREASED RISK OF FRACTURE. This patient's lowest T-score is low at one or more skeletal sites. It meets the World Health Organization's (WHO) criteria for ?low bone mass? (T-score between -1.0 and -2.5). The patient's 10-year risk of hip fracture as calculated by FRAX exceeds the threshold where pharmacological therapy is recommended by the National Osteoporosis Foundation (NOF). However, all treatment decisions require clinical judgment and consideration of individual patient factors, including patient preferences, comorbidities, previous drug use, risk factors not captured in the FRAX model (e.g., frailty, falls, vitamin D deficiency, increased bone turnover, interval significant decline in bone density) and possible under or overestimation of fracture risk by FRAX. The patient should follow a healthful lifestyle (good nutrition with adequate calcium and vit
== END ==
PROVIDERS: PCP Internal Medicine Hematology & Oncology; Visit Provider Internal Medicine Hematology & Oncology
DX: M85.89 Other specified disorders of bone density and structure, multiple sites (principal)
CPT/HCPCS: 77080

== ENCOUNTER 2022-05-17 17:24 | Outpatient (CLI) | payer MEDICARE, MEDICAID, SELFPAY ==
--- NOTE | ~2022-05-17 | CT_ITS ---
EXAMINATION: CT abdomen pelvis wo con DATE: 05/17/2022 18:04 INDICATION: Prostate cancer. TECHNIQUE: Computed tomography (CT) of the abdomen and pelvis was performed without intravenous contr ast. The dose-length product was 894.86 mGy-cm. Automated exposure control and iterative reconstructi on technique were employed. COMPARISON: CT dated 07/02/2021. FINDINGS: There is bibasilar dependent atelectasis. Heart size normal. No significant pleural or chano cardial effusion. Small hiatal hernia. There is diffuse thickening of the gastric wall which may be d ue to underdistention although other considerations such as gastritis and lymphoma are not excluded. Stable lipoma of the pancreatic head. The liver, spleen, adrenal glands are unremarkable. There are bilateral internal ureteral stents in e xpected position. There is mild bilateral periureteral edema, nonspecific. No renal stones. Bladder i s unremarkable. Gallbladder is present. Nonobstructive bowel gas pattern. There are scattered sclerot ic lesions in the pelvis, lower thoracic and lumbar spine, consistent with osseous metastases. There is also a sclerotic lesion of the right eighth rib. There is dependent atelectasis. There is mild lym ph node enlargement along the right external iliac chain. IMPRESSION: 1. Multifocal sclerotic lesions of the spine, pelvis and right eighth rib, consistent with metastatic disease. Mildly prominent right external iliac lymph node, suspicious for metastatic disease. 2: Abnormal diffuse thickening of the gastric wall which may be due to underdistention, gastritis al though lymphoma could have a similar appearance. Reviewed, dictated and finalized at location B. IMPRESSION: 1. Multifocal sclerotic lesions of the spine, pelvis and right eighth rib, cons istent with metastatic disease. Mildly prominent right external iliac lymph nod e, suspicious for metastatic disease. 2: Abnormal diffuse thickening of the gastric wall which may be due to underdi stention, gastritis although lymphoma could have a similar appearance.
== END 2022-05-17 17:25 | disposition home or self-care (01) ==
PROVIDERS: PCP Family Medicine; Visit Provider Urology
DX: C61 Malignant neoplasm of prostate (principal)
CPT/HCPCS: 74176

== ENCOUNTER 2022-06-06 13:51 | Outpatient (CLI) | payer MEDICARE, MEDICAID, SELFPAY ==
[2022-06-06 14:21] VITALS: BP 158/76; PULSE 80; RESP 16; TEMP 37.1; O2SAT 98
[2022-06-06 14:22] VITALS: BMI 29.2
--- NOTE | 2022-06-06 14:33 | PC.NURSE ---
Report to the Outpatient Waiting Room, entrance under the green pavilion located off [facility], at time __11:30AM on date ___06/09/22____. Planned Procedure Time: ___1:30PM . Time changes happen often and if your time is changed the preop area will call you the afternoon before. - You and your visitor will be asked to self-screen and do not enter if you have any COVID symptoms. - Only one visitor is requested with a max of two and NO children visitors are allowed at this time. - The patient visitor may be requested to leave or wait in car when not with patient due to distancing restrictions. - A mask is optional within the hospital. Patients may have clear liquids (water, carbonated beverages, clear teas, apple juice) until 3 hours prior to surgery with a maximum of 20 ounces. - No food from midnight until time of surgery Take the following medications with a SIP of water the morning of surgery: ___QUETIAPINE, FLECAINIDE, PREDNISONE, ALPRAZOLAM NEEDED, OXYCODONE NEEDED, DULOXETINE NEEDED Medications to discontinue per physician ____HOLD WARFARIN 7 DAYS PRE-OP LAST DOSE- 06/02/22. Please no make-up, nail [place], hairspray, perfume, deodorant, or body powder the day of surgery. No jewelry (including any body piercings) or valuables the day of surgery, leave them at home. Please take a shower or bath the night before, or the morning of, surgery with an antibacterial soap. Wear comfortable, loose fitting clothing. Children are encouraged to wear pajamas. - Jewelry must be removed prior to entering the operating room. Rings and piercings that are not removed may be cut off. - The hospital will not accept responsibility for valuables. - Please leave all valuables, including medications, at home the day of surgery. If you are going home after surgery, a licensed transit bus driver must drive you home. - NO public transportation without another adult if you receive anesthesia. - We recommend that an adult stay with you for 24 hours following discharge. - We also recommend that you do not drive, make important decision, drink alcoholic beverages, or take any drugs that were not prescribed by your health care provider for at least 24 hours after your discharge time. Follow any additional instructions given to you from your surgeon. If you or anyone in your household have experienced Covid symptoms in the past week, please notify your surgeon or the nurse liaison at the phone number below for possible testing. Telephone instructions given to __PATIENT & SON and asked if any additional questions and then verbalized understanding. Patient advised to call surgeon office or pre surgery nurse liaison [phone] if any additional questions.
[2022-06-06 15:25] LABS: Hematocrit 34.5 % (42.0-52.0); Hemoglobin 11.4 g/dL (14.0-18.0)
[2022-06-06 15:35] LABS: Anion Gap 9 mmol/L (8-16); Blood Urea Nitrogen 10 mg/dL (9-20); Calcium 9.2 mg/dL (8.4-10.2); Carbon Dioxide 27 mmol/L (22-30); Chloride 104 mmol/L (98-107); Estimated CRCL calculation 51 ml/min; Estimated Glomerular Filt Rate > 60; Glucose 140 mg/dL (65-110); Potassium 3.9 mmol/L (3.4-5.0); Sodium 140 mmol/L (137-145)
[2022-06-06 15:37] LABS: INR 1.1; Partial Thromboplastin Time 27.5 SECONDS (22.3-36.8); Prothrombin Time 13.6 Seconds (11.1-14.7)
== END 2022-06-06 13:52 | disposition home or self-care (01) ==
LOC: ANHSURGERY 13:54
PROVIDERS: Anesthesiology; PCP Family Medicine; Visit Provider Urology
DX: E11.9 Type 2 diabetes mellitus without complications (principal); D50.9 Iron deficiency anemia, unspecified; Z51.81 Encounter for therapeutic drug level monitoring; Z79.899 Other long term (current) drug therapy; Z01.818 Encounter for other preprocedural examination
CPT/HCPCS: 36415; 80048; 85014; 85018; 85610; 85730

== ENCOUNTER 2022-06-09 02:36 | Day surgery (SDC) | payer MEDICARE, MEDICAID, SELFPAY ==
[2022-06-06 14:20] VITALS: BP 158/76; PULSE 80; RESP 16; TEMP 37.1; O2SAT 98
[2022-06-07 11:19] VITALS: BMI 29.2
--- NOTE | 2022-06-07 11:27 | PC.NURSE ---
Ej Steen Male : 1945 Emr# [id number] 06/06/22 14:33 - Nurse Note by Yeny Tiwari RN Acct Num: [id number] : 1945 Patient Age: 77 Report to the Outpatient Waiting Room, entrance under the green pavilion located off [facility], at time __11:30AM on date ___06/09/22____. Planned Procedure Time: ___1:30PM . Time changes happen often and if your time is changed the preop area will call you the afternoon before. - You and your visitor will be asked to self-screen and do not enter if you have any COVID symptoms. - Only one visitor is requested with a max of two and NO children visitors are allowed at this time. - The patient visitor may be requested to leave or wait in car when not with patient due to distancing restrictions. - A mask is optional within the hospital. Patients may have clear liquids (water, carbonated beverages, clear teas, apple juice) until 3 hours prior to surgery with a maximum of 20 ounces. - No food from midnight until time of surgery Take the following medications with a SIP of water the morning of surgery: ___QUETIAPINE, FLECAINIDE, PREDNISONE, ALPRAZOLAM NEEDED, OXYCODONE NEEDED, DULOXETINE NEEDED Medications to discontinue per physician ____HOLD WARFARIN 7 DAYS PRE-OP LAST DOSE- 06/02/22. Please no make-up, nail croatian, hairspray, perfume, deodorant, or body powder the day of surgery. No jewelry (including any body piercings) or valuables the day of surgery, leave them at home. Please take a shower or bath the night before, or the morning of, surgery with an antibacterial soap. Wear comfortable, loose fitting clothing. Children are encouraged to wear pajamas. - Jewelry must be removed prior to entering the operating room. Rings and piercings that are not removed may be cut off. - The hospital will not accept responsibility for valuables. - Please leave all valuables, including medications, at home the day of surgery. If you are going home after surgery, a licensed emergency vehicle driver must drive you home. - NO public transportation without another adult if you receive anesthesia. - We recommend that an adult stay with you for 24 hours following discharge. - We also recommend that you do not drive, make important decision, drink alcoholic beverages, or take any drugs that were not prescribed by your health care provider for at least 24 hours after your discharge time. Follow any additional instructions given to you from your surgeon. If you or anyone in your household have experienced Covid symptoms in the past week, please notify your surgeon or the nurse liaison at the phone number below for possible testing. Telephone instructions given to __PATIENT & SON and asked if any additional questions and then verbalized understanding. Patient advised to call surgeon office or pre surgery nurse liaison [phone] if any additional questions. Initialized on 06/06/22 14:33 - END OF NOTE
--- NOTE | 2022-06-07 11:27 | PC.NURSE ---
Pt interview completed by Abelardo Tiwari RN on 06/06. Information transferred to this V# from interview V#.
--- NOTE | 2022-06-08 14:47 | WPDANESEPPF ---
Anes - Initial Pre Proc Eval Procedure: Operation Date: 06/09/22 12:30 Proposed Procedures p Cystoscopy, Bilateral Retrograde Pyelogram, Bilateral Ureteral Stent Removal - Gumaro Steward MD Date/Time: 06/08/22 14:47 Surgeon: Gumaro Steward MD Pre Op Diagnosis: prostate CA, left hydronephrosis Patient Data Age: 77 Gender: M Height: 1.7 m Weight: 84.8 kg Last Vital Signs Temp 37.1 C 06/06/22 14:20 Pulse 80 06/06/22 14:20 Resp 16 06/06/22 14:20 BP 158/76 H 06/06/22 14:20 Pulse Ox 98 06/06/22 14:20 O2 Del Method Room Air 06/06/22 14:20 Allergies Allergy/AdvReac Type Severity Reaction Status Date / Time No Known Allergies Allergy Verified 06/09/22 11:25 Home Medications Medication Instructions Recorded Confirmed Type atorvastatin 20 mg tablet 20 mg PO DAILY 06/04/19 06/06/22 History flecainide 100 mg tablet 100 mg PO Q12H 06/04/19 06/06/22 History ferrous sulfate 325 mg (65 mg 325 mg PO DAILY #30 tabs 01/19/21 06/06/22 Rx iron) tablet lubiprostone 24 mcg capsule 24 mcg PO BID #60 caps 08/31/21 06/06/22 Rx (Amitiza) quetiapine 100 mg tablet 100 mg PO .COMPLEX #60 tabs 09/12/21 06/06/22 Rx cyclobenzaprine 10 mg tablet 10 mg PO TID PRN muscle spasm #90 09/21/21 06/06/22 Rx tabs alprazolam 0.5 mg tablet (Xanax) 0.5 mg PO TID PRN anxiety #90 tabs 11/07/21 06/06/22 Rx prednisone 5 mg tablet 5 mg PO DAILY 11/07/21 06/06/22 History zolpidem 10 mg tablet 10 mg PO .QHS PRN insomnia #30 tabs 01/31/22 06/06/22 Rx abiraterone 500 mg tablet (Zytiga) 1,000 mg PO QAM 02/06/22 06/06/22 History blood sugar diagnostic (OneTouch #100 ea 02/22/22 05/30/22 Rx Verio test strips) lancets 30 gauge (OneTouch Delica #100 ea 02/22/22 05/30/22 Rx Lancets) metformin 500 mg tablet,extended 500 mg PO BID 03/03/22 06/06/22 History release 24 hr esomeprazole magnesium 40 mg 40 mg PO DAILY #90 caps 06/05/22 06/06/22 Rx capsule,delayed release (Nexium) oxycodone-acetaminophen 10 mg-325 1 tablet PO Q6H PRN pain #120 tabs 06/05/22 06/06/22 Rx mg tablet (Percocet) duloxetine 60 mg capsule,delayed 60 mg PO DAILY PRN Anxiety 06/06/22 06/06/22 History release triamcinolone acetonide 0.5 % 1 applic topical BID PRN Rash 06/06/22 06/06/22 History topical cream warfarin 4 mg tablet 4 mg PO DAILY 06/06/22 06/06/22 History Patient hx anesthesia problems: none Family hx anesthesia problems: none Results Review: All pre-operative results and documents have been reviewed as part of the pre-operative evaluation. [facility] Past Medical History Medical History (Updated 06/05/22 @ 14:08 by Saw Ga MD) Anemia (11/02/20) hemoglobin 12.7 on 11/02/2020 At high risk for falls Atrial fibrillation BMI 28.0-28.9,adult BMI 29.0-29.9,adult BMI 30.0-30.9,adult CAD (coronary artery disease), [place] coronary artery Chronic anxiety Chronic pain of left knee COVID-19 virus detected (~02/16/20) Eczema Elevated PSA, between 10 and less than 20 ng/ml (11/02/20) PSA 16.3 on 11/02/2020 Eosinophilia (~11/02/20) eosinophil count 1248 on 11/02/2020 Folliculitis Iron deficiency anemia, unspecified total iron 31 with 7% saturation and ferritin 44 with hemoglobin 12.8 on 01/18/2021 Keloid scar Mixed hyperlipidemia Nocturia Obstructive sleep apnea on CPAP does not use CPAP Overweight (BMI 25.0-29.9) Paroxysmal atrial fibrillation Prostate cancer Tinea cruris Tobacco use disorder, continuous Type 2 diabetes mellitus without complication, without long-term current use of insulin Family History Family History Mother Family history of malignant neoplasm Father Family history of malignant neoplasm Social History Social History (Updated 06/05/22 @ 13:13 by Nisa Abebe MA) Smoking packs per day: 0.5 Smoking cigarettes per day: 10.0 Years smoked: 60 Smoking pack-years: 30.00 Smoking status: Curr
[2022-06-09] VITALS (10 sets, daily range): BP systolic 159–203; BP diastolic 78–104; PULSE 71–82; RESP 10–18; TEMP 36.3–36.6; O2SAT 96–100
--- NOTE | ~2022-06-09 | XR_ITS ---
EXAMINATION: XR retrograde pyelogram BI INDICATION: Bilateral stent removal and bilateral retrograde TECHNIQUE: 347 intraoperative fluoroscopic images are submitted for review. Total fluoroscopic time w as 65.4 seconds COMPARISON: 12/08/2021 FINDINGS: Fluoroscopic images demonstrate removal of the ureteral stents. There is an unchanged short segment stricture of the left mid ureter with contrast readily passing both sides of the stricture. There is mild bilateral hydronephrosis. Please refer to procedure note for full details. IMPRESSION: 1. Bilateral retrograde pyelogram with removal of the internal ureteral stents. Please refer to proce dure note for full details. Reviewed, dictated and finalized at location F. K FEEDER IMPRESSION: 1. Bilateral retrograde pyelogram with removal of the internal ureteral stents. Please refer to procedure note for full details.
[2022-06-09] MEDS: LACTATED RINGERS 1,000 ML 30 ML IV CONT (11:14)
[2022-06-09 11:18] LABS: Glucose Point of Care 116 mg/dl (65-105)
--- NOTE | 2022-06-09 12:39 | WPDHPUPDATE1 ---
History and Physical Update Update Date/Time: 06/09/22 12:39 History and Physical has been reviewed, including an updated exam of the patient. There are NO changes in the patient's condition. Risks, benefits, and alternatives have been discussed and questions answered. Patient agrees to proceed with procedure.
[2022-06-09] MEDS: ceFAZolin 2 GM/D5W 50 ML 2 GM/50 ML BAG IVPB (12:50)
--- NOTE | 2022-06-09 13:15 | W.PM.PROC2 ---
Procedure Note - Detailed Date of Procedure 06/09/22 Pre-op Diagnosis Prostate CA, left hydronephrosis Post-op Diagnosis Same Procedure Performed Cystoscopy, bilateral ureteral stent removal and bilateral retrograde pyelography Surgeon Gumaro Steward MD Anesthesia General Description of Procedure patient is brought the op suite was prepped draped in routine sterile fashion while in dorsal lithotomy position after the uneventful induction of a general LMA anesthetic. Cystoscopy is undertaken with a 21 F rigid cystoscope. Each indwelling ureteral stent is grasped and removed with ease. The patient has no prostate tissue having had a prior prostatectomy. Bladder mucosa is normal without neoplasm. There was no intravesical foreign bodies other than ureteral stent. Using an 8 F bulb-tipped catheter and a angiographic catheter retrograde pyelography shows no points of obvious obstruction. There was some mild narrowing of the left mid ureter but both sides appeared to drain freely. In light of that I opted to leave the ureteral stents out. I will plan to see him back in 4-6 weeks with a renal ultrasound. Drains No Packing No Pathology None sent Complications No immediate complications Condition Stable Disposition PACU
[2022-06-09 13:28] LABS: Glucose Point of Care 95 mg/dl (65-105)
[2022-06-09] MEDS: hydrALAZINE HCL 20 MG/ML VIAL 10 MG IV PUSH (14:09)
--- NOTE | 2022-06-09 14:11 | SUR.PHASEI ---
DR. LYNN CALLED RE: ELEVATED BP'S; 10 MG HYDRALAZINE GIVEN IV PER ORDER.
== END 2022-06-09 15:23 | disposition home or self-care (01) ==
PROVIDERS: PCP Family Medicine; Visit Provider Urology
PROC: (CPT 52352; principal; 2022-06-09 12:30)
DX: N13.30 Unspecified hydronephrosis (principal); Z85.46 Personal history of malignant neoplasm of prostate; I25.10 Atherosclerotic heart disease of native coronary artery without angina pectoris; E78.2 Mixed hyperlipidemia; I48.0 Paroxysmal atrial fibrillation; E11.9 Type 2 diabetes mellitus without complications; G47.33 Obstructive sleep apnea (adult) (pediatric); D50.9 Iron deficiency anemia, unspecified; F41.9 Anxiety disorder, unspecified; Z79.84 Long term (current) use of oral hypoglycemic drugs; Z79.01 Long term (current) use of anticoagulants; F17.210 Nicotine dependence, cigarettes, uncomplicated; E66.9 Obesity, unspecified; Z68.28 Body mass index [BMI] 28.0-28.9, adult
CPT/HCPCS: 52005; 74420; 82948; A9270; C1758; C1769; J0360; J0690; J1100; J2405; J2704; J3010; J7120

== ENCOUNTER 2022-07-19 14:09 | Outpatient (CLI) | payer MEDICARE, MEDICAID, SELFPAY ==
--- NOTE | ~2022-07-19 | XR_ITS ---
EXAMINATION: XR ribs LT 2V w CXR 2V INDICATION: Pain after fall TECHNIQUE: PA and lateral views of the chest and 3 views of the left ribs were obtained. COMPARISON: 05/11/2021 FINDINGS: The lungs are free of acute opacities. No pleural effusion or pneumothorax. The cardiomedia stinal silhouette is normal. There are widespread sclerotic osseous metastases of the spine, ribs, an d bilateral scapulae. No displaced rib fracture is identified. There is a questionable nondisplaced f racture at the anterolateral aspect of the ninth rib. IMPRESSION: 1. Possible nondisplaced fracture of the anterolateral left ninth rib. 2. Widespread sclerotic osseous metastases. Reviewed, dictated and finalized at location B. SKATING COACH
--- NOTE | ~2022-07-19 | XR_ITS ---
EXAMINATION: XR lumbar spine min 4V DATE: 07/19/2022 14:52 INDICATION: Pain after fall, history of prostate cancer TECHNIQUE: Anteroposterior, lateral, and bilateral oblique views of the lumbar spine, and cone-down l ateral view of the lumbosacral junction were obtained. COMPARISON: 05/17/2022 FINDINGS: Again seen are multiple sclerotic metastases involving the spine and pelvis. No acute fract ure is identified. Bone alignment is normal. There is mild loss of intervertebral disc space height i n the upper lumbar spine. There is mild chronic anterior wedging at the thoracolumbar junction. IMPRESSION: 1. Mild lumbar spondylosis without acute findings. 2. Sclerotic osseous metastases of the spine and pelvis. Reviewed, dictated and finalized at location B. UELS ENGINEERING MANAGER
== END 2022-07-19 14:10 | disposition home or self-care (01) ==
PROVIDERS: PCP Family Medicine; Visit Provider Family Medicine
DX: C79.51 Secondary malignant neoplasm of bone (principal); M47.816 Spondylosis without myelopathy or radiculopathy, lumbar region; M54.50 Low back pain, unspecified; R07.81 Pleurodynia; G89.29 Other chronic pain
CPT/HCPCS: 71046; 71100; 72110

== ENCOUNTER 2022-08-02 15:51 | Outpatient (CLI) | payer MEDICARE, MEDICAID, SELFPAY ==
--- NOTE | ~2022-08-02 | US_ITS ---
EXAMINATION: US retroperitoneal comp DATE: 08/02/2022 16:34 INDICATION: RLQ PAIN TECHNIQUE: Multiple grayscale and Doppler ultrasound images of the kidneys were obtained. COMPARISON: None. FINDINGS: The right kidney measures 10.9 x 5.3 x 4.5 cm. The left kidney measures 10.0 x 4.4 x 3.6 cm. The kidn eys demonstrate normal parenchymal echogenicity. There is mild bilateral hydronephrosis. The bladder is normal. IMPRESSION: Mild bilateral hydronephrosis, otherwise unremarkable renal sonogram findings. Reviewed, dictated and finalized at location K. PICKER
== END 2022-08-02 15:52 | disposition home or self-care (01) ==
PROVIDERS: PCP Family Medicine; Visit Provider Urology
DX: R10.31 Right lower quadrant pain (principal)
CPT/HCPCS: 76770

== ENCOUNTER 2023-05-15 09:32 | Outpatient (CLI) | payer MEDICARE, MEDICAID, SELFPAY ==
--- NOTE | ~2023-05-15 | CT_ITS ---
EXAMINATION: CT chest abdomen pelvis w con DATE: 05/15/2023 10:18 INDICATION: Prostate cancer. TECHNIQUE: Computed tomography (CT) of the chest, abdomen, and pelvis was performed with 100 mL Omnip aque 350 intravenous contrast. Automated exposure control and iterative reconstruction technique were employed. The dose-length product was 665.98 mGy-cm. COMPARISON: CT abdomen and pelvis 05/17/2022, bone scan 05/15/2023 FINDINGS: CHEST CT: The lungs demonstrate mild atelectasis in the right. A calcified left lung nodule is consistent with old granulomatous disease. No pleural effusion. There is a 15 x 11 mm mass in the anterior mediastinu m. The heart size is normal. There are coronary artery calcifications. No pericardial effusion. There is mild bilateral gynecomastia. There are widespread sclerotic lesions of bone. ABDOMEN/PELVIS CT: The liver, gallbladder, spleen, and adrenal glands are normal. There is a 12 mm lipoma in the pancrea s. There are cysts in right kidney measuring up to 6 mm. There is cortical thinning of left kidney. T here is a decreased left-sided contrast nephrogram. There is severe left hydronephrosis and hydrouret er to the level of retroperitoneal lymphadenopathy. A left para-aortic martha mass measures 2.6 x 2.0 cm. There are no dilated loops of bowel. There is no free intraperitoneal fluid. There are bilateral inguinal hernias containing fat. Aortic atherosclerosis is noted. There are widespread sclerotic lesi ons of bone. IMPRESSION: 1. Widespread sclerotic lesions of bone, stable from 05/17/2022, consistent metastatic disease. 2. Left paracolic lymphadenopathy, stable from 05/17/2022, consistent metastatic disease. 3. Severe left hydronephrosis and proximal hydroureter and mild left kidney atrophy, new from 022 status post ureteral stent removal. 4. 15 x 11 mm anterior mediastinal mass, which may be a thymoma or less likely lymphoma. Reviewed, dictated and finalized at location E. IMPRESSION: 1. Widespread sclerotic lesions of bone, stable from 05/17/2022, consistent met astatic disease. 2. Left paracolic lymphadenopathy, stable from 05/17/2022, consistent metastati c disease. 3. Severe left hydronephrosis and proximal hydroureter and mild left kidney atr ophy, new from 05/17/2022 status post ureteral stent removal. 4. 15 x 11 mm anterior mediastinal mass, which may be a thymoma or less likely lymphoma.
--- NOTE | ~2023-05-15 | NM_ITS ---
EXAMINATION: NM bone scan whole body DATE: 05/15/2023 14:11 INDICATION: Prostate cancer. TECHNIQUE: 24.0 mCi Tc-99m HDP was administered intravenously. Delayed whole-body scintigrams were o btained. COMPARISON: Bone scan 05/11/2021, CT chest, abdomen, and pelvis 05/15/2023 FINDINGS: There are greater than 20 scattered foci of increased activity in the bones including the s pine, pelvis, ribs, and skull correlating with sclerotic lesions by CT, consistent with metastatic di sease. There is increased activity in lateral right tibial metaphysis that is indeterminate for metas tatic disease. IMPRESSION: 1. Widespread osseous metastatic disease, new from 05/11/2021. Reviewed, dictated and finalized at location E.
== END 2023-05-15 09:33 | disposition home or self-care (01) ==
PROVIDERS: PCP Family Medicine; Visit Provider Internal Medicine Hematology & Oncology
DX: C61 Malignant neoplasm of prostate (principal); C79.51 Secondary malignant neoplasm of bone; M89.9 Disorder of bone, unspecified; R59.1 Generalized enlarged lymph nodes; N13.30 Unspecified hydronephrosis; N13.4 Hydroureter; N26.1 Atrophy of kidney (terminal); Z46.6 Encounter for fitting and adjustment of urinary device
CPT/HCPCS: 71260; 74177; 78306; A9503; Q9967

== ENCOUNTER 2023-05-24 11:58 | Outpatient (CLI) | payer MEDICARE, MEDICAID, SELFPAY ==
--- NOTE | ~2023-05-24 | XR_ITS ---
XR mandible min 4V 05/24/2023 12:37 Indication: Jaw pain for 2 weeks. Procedure: 4 views of the mandible Comparison: No prior studies for comparison. Findings: Mandible appears to be intact. Temporomandibular joints are symmetric allowing for techniqu e. Paranasal sinuses are pneumatized. Mastoids are pneumatized. Orbits are symmetric. There is modera te cervical spondylosis. Left carotid atherosclerosis. Impression: 1: No acute abnormality of the mandible. Reviewed, dictated and finalized at location A. Impression: 1: No acute abnormality of the mandible.
== END 2023-05-24 11:59 | disposition home or self-care (01) ==
LOC: ANHIMG 12:04
PROVIDERS: PCP Family Medicine; Visit Provider Internal Medicine Hematology & Oncology
DX: R68.84 Jaw pain (principal)
CPT/HCPCS: 70110; 96372; 96402; J0897; J9217

== ENCOUNTER 2023-07-19 12:51 | Outpatient (CLI) | payer MEDICARE, MEDICAID, SELFPAY ==
--- NOTE | ~2023-07-19 | XR_ITS ---
EXAM: XR wrist RT 2V DATE: 07/19/2023 13:20 HISTORY: PROSTATE CA METASTATIC TO BONE, BRUISING LATERAL WRIST . COMPARISON: None available. FINDINGS: Decreased mineralization. No fracture or dislocation. No lytic or blastic lesion. Mild sca ttered degenerative change. Mild ulnar positive variance. Likely changes of mild ulnar impaction. No erosion or periosteal change. Soft tissues within normal limits. IMPRESSION: No acute osseous finding in the right wrist. Reviewed, dictated and finalized at location K. E INSTRUCTOR
== END 2023-07-19 12:52 | disposition home or self-care (01) ==
PROVIDERS: PCP Family Medicine; Visit Provider Student in an Organized Health Care Education/Training Program
DX: C61 Malignant neoplasm of prostate (principal); C79.51 Secondary malignant neoplasm of bone
CPT/HCPCS: 36415; 73100; 80047; 80053; 84153; 85025; 96372; J0897

== ENCOUNTER 2023-08-24 11:00 | Outpatient (CLI) | payer MEDICARE, MEDICAID, SELFPAY ==
--- NOTE | ~2023-08-24 | CT_ITS ---
EXAMINATION: CT chest abdomen pelvis w con DATE: 08/24/2023 11:41 INDICATION: Prostate cancer. TECHNIQUE: Computed tomography (CT) of the chest, abdomen, and pelvis was performed with 100 mL Omnip aque 350 intravenous contrast. Automated exposure control and iterative reconstruction technique were employed. The dose-length product was 587.12 mGy-cm. COMPARISON: CT 05/15/2023 FINDINGS: CHEST CT: There is a new 7 mm nodule in right lung lower lobe. A calcified left lung nodule is consistent with old granulomatous disease. There is mild atelectasis bilaterally. Cardiomegaly is noted. No pericardi al effusion. There are coronary artery calcifications. There is a 13 x 12 mm mass in the anterior med iastinum. There is bilateral gynecomastia. There are scattered sclerotic lesions of bone. ABDOMEN/PELVIS CT: The liver, gallbladder, spleen, pancreas, and adrenal glands are normal. There are cysts in right kid keith measuring up to 7 mm. There is mild atrophy of left kidney. There is a decreased left-sided contr ast nephrogram. There is severe left hydronephrosis and hydroureter to the level of a 2.2 x 2.9 cm le ft common iliac node. There are no dilated loops of bowel. The appendix is normal. Aortic atheroscler osis is noted. There is no free intraperitoneal fluid. There are scattered sclerotic lesions of bone . IMPRESSION: 1. Widespread sclerotic lesions of bone, stable from 05/15/2023, consistent with metastatic disease. 2. Left common iliac lymphadenopathy, stable from 05/15/2023, consistent with metastatic disease. 3. Severe left hydronephrosis and proximal hydroureter secondary to left common iliac lymphadenopathy with mild left kidney atrophy, stable from 05/15/2023. 4. 13 x 12 mm anterior mediastinal mass, which may be a thymoma or less likely lymphoma, stable from 05/15/2023. 5. New 7 mm pulmonary nodule, probably benign. Noncontrast low-dose chest CT is recommended in 3-6 mo nths. Reviewed, dictated and finalized at location E. ECT ASSISTANT IMPRESSION: 1. Widespread sclerotic lesions of bone, stable from 05/15/2023, consistent wit h metastatic disease. 2. Left common iliac lymphadenopathy, stable from 05/15/2023, consistent with m etastatic disease. 3. Severe left hydronephrosis and proximal hydroureter secondary to left common iliac lymphadenopathy with mild left kidney atrophy, stable from 05/15/2023. 4. 13 x 12 mm anterior mediastinal mass, which may be a thymoma or less likely lymphoma, stable from 05/15/2023. 5. New 7 mm pulmonary nodule, probably benign. Noncontrast low-dose chest CT is recommended in 3-6 months.
--- NOTE | ~2023-08-24 | NM_ITS ---
EXAMINATION: NM bone scan whole body DATE: 08/24/2023 15:27 INDICATION: Prostate cancer TECHNIQUE: 24 mCi Tc-99m HDP was administered intravenously. Delayed whole-body scintigrams were obt ained. COMPARISON: Bone scan dated 05/15/[address] chest, abdomen and pelvis dated 08/24/2023 FINDINGS: Again seen are multiple foci of increased uptake throughout the axial and appendicular skeleton with corresponding sclerotic lesions on prior CT consistent with widespread metastatic disease. The total number of lesions appears to have increased by at least 3 fold. There is also been interval increase in size of a few of the prior lesions. There is a single lesion previously seen at the right knee whi ch is and is not visualized in the current study. IMPRESSION: 1. Interval progression in size and number of numerous foci of increased bone uptake throughout the a xial and appendicular skeleton consistent with progression of metastatic disease. Reviewed, dictated and finalized at location A. ITECTURE FACULTY MEMBER IMPRESSION: 1. Interval progression in size and number of numerous foci of increased bone u ptake throughout the axial and appendicular skeleton consistent with progressio n of metastatic disease.
== END 2023-08-24 11:01 | disposition home or self-care (01) ==
PROVIDERS: PCP Family Medicine; Visit Provider Internal Medicine Hematology & Oncology
DX: C61 Malignant neoplasm of prostate (principal); C79.51 Secondary malignant neoplasm of bone; R59.0 Localized enlarged lymph nodes; N13.30 Unspecified hydronephrosis; N26.1 Atrophy of kidney (terminal); J98.59 Other diseases of mediastinum, not elsewhere classified; R91.1 Solitary pulmonary nodule
CPT/HCPCS: 71260; 74177; 78306; A9503; Q9967

== ENCOUNTER 2023-10-15 11:29 | Inpatient (IN) | payer MEDICARE, MEDICAID, SELFPAY ==
[2023-10-15] VITALS (17 sets, daily range): BP systolic 109–159; BP diastolic 40–82; PULSE 64–84; RESP 15–19; TEMP 36.1–37.1; O2SAT 96–100
--- NOTE | ~2023-10-15 | CT_ITS ---
EXAMINATION: CT abdomen pelvis w con DATE: 10/15/2023 13:03 INDICATION: Mid abdominal pain. TECHNIQUE: Computed tomography (CT) of the abdomen and pelvis was performed with 100 mL Omnipaque 350 intravenous contrast. Automated exposure control and iterative reconstruction technique were employe d. The dose-length product was 567.83 mGy-cm. COMPARISON: CT abdomen and pelvis 08/24/2023 FINDINGS: The visualized portions of the lung bases demonstrate mild atelectasis. No pleural effusion . The heart size is normal. No pericardial effusion the liver, spleen, gallbladder, pancreas, adrenal glands, and right kidney are normal. There is moderate atrophy of left kidney. There is severe left hydronephrosis and proximal hydroureter. There are no dilated loops of bowel. The appendix is not vis ualized. There is left common iliac lymphadenopathy measuring 3.1 x 2.4 cm. There is a left inguinal hernia containing fat. There is no free intraperitoneal fluid. There are widespread sclerotic lesions of bone, consistent with metastatic disease. There is chronic height loss of multiple vertebral bodi es. IMPRESSION: 1. Stable widespread bone lesions and left common iliac lymphadenopathy, consistent with metastatic d isease. 2. Persistent severe left hydronephrosis and proximal left hydroureter secondary to left common iliac lymphadenopathy. Worsened moderate left kidney atrophy. Reviewed, dictated and finalized at location E. IMPRESSION: 1. Stable widespread bone lesions and left common iliac lymphadenopathy, consis tent with metastatic disease. 2. Persistent severe left hydronephrosis and proximal left hydroureter secondar y to left common iliac lymphadenopathy. Worsened moderate left kidney atrophy.
--- NOTE | 2023-10-15 12:32 | ED.ABDPAIN ---
HPI - Abdominal Pain General Chief Complaint: Abdominal Pain Stated Complaint: abd pain Time Seen by Provider: 10/15/23 11:59 History of Present Illness HPI narrative: 78-year-old male that is Icelandic-speaking only presents emergency department complaining of abdominal pain with associated nausea vomiting and diarrhea since Sunday. Patient states he has also had some red blood in the stool and noticed some blood in his urine today. Patient states he does sometimes have blood in both stool and urine that comes and goes. Patient denies any prior history of a diagnosed GI bleed. Patient is currently being treated with chemotherapy for breast cancer and is being followed by Dr. Nicholas. Related Data Home Medications Medication Instructions Recorded Confirmed atorvastatin 20 mg tablet 20 mg PO DAILY 06/04/19 10/15/23 flecainide 100 mg tablet 100 mg PO Q12H 06/04/19 10/15/23 prednisone 5 mg tablet 10 mg PO BID 11/07/21 10/15/23 warfarin 4 mg tablet 4 mg PO DAILY 06/06/22 10/15/23 metoprolol succinate 25 mg 25 mg PO DAILY 08/17/22 10/15/23 tablet,extended release 24 hr losartan 50 mg tablet 50 mg PO DAILY 08/07/23 10/15/23 amlodipine 2.5 mg tablet 2.5 mg PO DAILY 09/01/23 10/15/23 doxycycline hyclate 100 mg capsule 100 mg PO DAILY 10/15/23 10/15/23 enzalutamide 40 mg capsule (Xtandi) 160 mg PO DAILY 10/15/23 10/15/23 Allergies Allergy/AdvReac Type Severity Reaction Status Date / Time No Known Allergies Allergy Verified 10/15/23 11:30 Review of Systems Review of Systems: All systems reviewed & are unremarkable except as noted in HPI and below PMFSH Past Medical History Medical History Anemia (11/02/20) hemoglobin 12.7 on 11/02/2020. Hemoglobin 12.5 on 11/10/2022. At high risk for falls Atrial fibrillation Benign paroxysmal positional vertigo due to bilateral vestibular disorder BMI 28.0-28.9,adult BMI 29.0-29.9,adult BMI 30.0-30.9,adult CAD (coronary artery disease), [place] coronary artery Chronic anxiety Chronic low back pain X-ray 07/19/2022 with degenerative changes of the lumbar spine with diffuse sclerotic metastatic lesions. Chronic pain of left knee COVID-19 virus detected (~02/16/20) Dermatitis of face (~09/23/22) Eczema Elevated PSA, between 10 and less than 20 ng/ml (11/02/20) PSA 16.3 on 11/02/2020 Eosinophilia (~11/02/20) eosinophil count 1248 on 11/02/2020 Essential hypertension Folliculitis History of prostate cancer Iron deficiency anemia, unspecified total iron 31 with 7% saturation and ferritin 44 with hemoglobin 12.8 on 01/18/2021 Keloid scar Mixed hyperlipidemia Nocturia Obstructive sleep apnea on CPAP does not use CPAP Overweight (BMI 25.0-29.9) Paroxysmal atrial fibrillation Postoperative ileus Prostate cancer PSA 0.5 on 11/10/2022. PSA 4.7 on 03/29/2023. PSA 6.1 on 05/01/2023. Rib pain on left side (~07/09/22) Diffuse metastatic lesions of the spine, ribs, scapula with possible non displaced anterior lateral 9th rib fracture on x-ray 07/19/2022. Tinea cruris Tobacco use disorder, continuous 5 or 6 cigarettes daily Type 2 diabetes mellitus without complication, without long-term current use of insulin Glucose 173 on 11/10/2022. Family History Family History Mother Family history of malignant neoplasm Father Family history of malignant neoplasm Social History Social History Smoking packs per day: 1 Smoking cigarettes per day: 20.0 Years smoked: 60 Smoking pack-years: 60.00 Smoking status: Former smoker Tobacco type: cigarettes Additional smoking assessment comments: 0.2 PACK/DAY Alcohol intake: never Alcohol use details: HEAVIER DRINKER - QUIT EARLY Substance use: never Substance use type: does not use Do You Feel Safe in your Home?: Yes Lack of Transportation
[2023-10-15 12:39] LABS: Basophils Absolute Auto 0.1 K/mm3 (0.0-0.1); Basophils Percent Auto 1.3 % (0.2-1.2); Eosinophils Absolute Auto 0.3 K/mm3 (0-0.3); Eosinophils Percent Auto 3.1 % (0-4.4); Hematocrit 22.6 % (42.0-52.0); Hemoglobin 7.2 g/dL (14.0-18.0); Immature Granulocyte Absolute 0.12 K/mm3 (0.00-0.031); Immature Granulocyte Percent A 1.1 % (0-0.5); Lymphocytes Absolute Auto 2.47 K/mm3 (0.9-3.2); Lymphocytes Percent Auto 23.3 % (18.3-44.2); Mean Corpuscular HGB Conc 31.9 g/dl (32-36); Mean Corpuscular Volume 87.9 fl (80-100); Mean Platelet Volume 9.8 fl (7.4-10.4); Monocytes Absolute Auto 0.8 K/mm3 (0.1-0.6); Monocytes Percent Auto 7.5 % (2.6-8.5); Neutrophils Absolute Auto 6.7 K/mm3 (1.3-6.7); Neutrophils Percent Auto 63.7 % (45.5-73.1); Nucleated Red Blood Cells Perc 0.3 % (0.0-0.2); Platelet Count Result 401 k/mm3 (150-375); Red Blood Count 2.57 M/mm3 (4.6-6.20); Red Cell Distribution Width 16.2 % (11.5-14.5); White Blood Count 10.6 K/mm3 (4.5-10.0)
[2023-10-15 12:49] LABS: Alanine Aminotransferase 15 U/L (6-50); Albumin Level 3.1 g/dL (3.5-5.1); Alkaline Phosphatase 759 U/L (38-126); Anion Gap 10 mmol/L (8-16); Aspartate Amino Transferase 23 U/L (17-59); Bilirubin,Total 0.4 mg/dL (0.2-1.3); Blood Urea Nitrogen 32 mg/dL (9-20); Calcium 7.8 mg/dL (8.4-10.2); Carbon Dioxide 19 mmol/L (22-30); Chloride 107 mmol/L (98-107); Color Urine Red (Yellow); Estimated CRCL calculation 39 ml/min; Estimated Glomerular Filt Rate 53; Glucose 87 mg/dL (65-110); Lipase 323 U/L (23-300); Potassium 3.8 mmol/L (3.4-5.0); Sodium 136 mmol/L (137-145)
[2023-10-15 12:50] LABS: Add Urine Microscopic? YES; Appearance Urine Cloudy (Clear); Glucose Urine UA Negative (Negative); Ketones Urine 1+ mg/dL (Negative); Protein Urine 2+ mg/dL (Negative); pH Urine 5.5 (5.0-9.0)
[2023-10-15 12:51] LABS: Bilirubin Urine 2+ (Negative); Blood Urine 3+ (Negative); Nitrate Urine Negative (Negative)
[2023-10-15 12:52] LABS: Leukocyte Esterase Ur Negative LEU/UL (Negative)
[2023-10-15 12:57] LABS: Estimated CRCL calculation 34 ml/min; Estimated Glomerular Filt Rate 45
[2023-10-15 12:58] LABS: Bacteria Urine None Seen /hpf; Need Manual Microscopic Reviewed; Non Pathogenic Casts 0-2; RBC Urine >100 /hpf (0-2); Squamous Epithelial Cell Urine Occasional /hpf (Few); WBC Urine 21-50 /hpf (0-3)
[2023-10-15 13:00] LABS: Prothrombin Time 69.6 Seconds (11.1-14.7)
[2023-10-15 13:01] LABS: Partial Thromboplastin Time 129.7 Seconds (22.3-36.8)
[2023-10-15] MEDS: SODIUM CHLORIDE 0.9% IV 1,000 ML 999 ML IV CONT (13:08)
[2023-10-15] MEDS: HYDROmorphone HCL INJ (*CRX) 1 MG/ML SYR 0.5 MG IV PUSH (13:08)
[2023-10-15] MEDS: ONDANSETRON INJ 4 MG/2 ML VIAL IV PUSH ×2 (13:08→15:36)
[2023-10-15 13:25] LABS: INR 7.3
[2023-10-15 13:38] LABS: Lactic Acid Reflex 5.5 mmol/L (0.7-2.0)
[2023-10-15] MEDS: PANTOPRAZOLE SODIUM IV 40 MG VIAL IV PUSH (14:05)
--- NOTE | 2023-10-15 14:29 | ADMGEN ---
This patient, Ej Steen, was admitted to [facility] Surg Room 323-02. Patient/family oriented to hospital policies and general routines including ID bracelet, bed and alarms, visiting hours, pain management, procedures, bathroom and other care routines, personal items, smoking policy, room service/diet, and visiting hours. Information on how to activate the Rapid Response Team has been discussed. Patient/Family are encouraged to report perceived risks to care and to ask questions if they do not understand what they are told or what they should do.
[2023-10-15] MEDS: MORPHINE SULFATE (*CRX) 2 MG/ML INJ IV PUSH ×3 (15:37→22:07)
[2023-10-15] MEDS: SODIUM CHLORIDE 0.9% IV 250 ML 30 ML IV CONT (16:00)
[2023-10-15 16:30] LABS: Reflex Lactic Acid Yes or No Add Lactic
--- NOTE | 2023-10-15 20:19 | PM.IMHP ---
H&P: HPI History of Present Illness Date/Time: 10/15/23 20:19 Chief Complaint: Abdominal pain Narrative: This is a 78-year-old male with metastatic prostate cancer, GERD, hypertension, atrial fibrillation, rate controlled and anticoagulated, type diabetes mellitus. Patient was brought to the emergency room for evaluation due to abdominal pain blood in the stools and urine. Most of the history has been obtained upon reviewing medical records. Patient is unable to give any history his only mumbling words at the time of my visit. Preliminary workup was significant for INR of 7, lactic acid of 5, hemoglobin 7.2 a urinalysis showed numerous WBCs present. EXAMINATION: CT abdomen pelvis w con DATE: 10/15/2023 13:03 INDICATION: Mid abdominal pain. TECHNIQUE: Computed tomography (CT) of the abdomen and pelvis was performed with 100 mL Omnipaque 350 intravenous contrast. Automated exposure control and iterative reconstruction technique were employed. The dose-length product was 567.83 mGy-cm. COMPARISON: CT abdomen and pelvis 08/24/2023 FINDINGS: The visualized portions of the lung bases demonstrate mild atelectasis. No pleural effusion. The heart size is normal. No pericardial effusion the liver, spleen, gallbladder, pancreas, adrenal glands, and right kidney are normal. There is moderate atrophy of left kidney. There is severe left hydronephrosis and proximal hydroureter. There are no dilated loops of bowel. The appendix is not visualized. There is left common iliac lymphadenopathy measuring 3.1 x 2.4 cm. There is a left inguinal hernia containing fat. There is no free intraperitoneal fluid. There are widespread sclerotic lesions of bone, consistent with metastatic disease. There is chronic height loss of multiple vertebral bodies. IMPRESSION: 1. Stable widespread bone lesions and left common iliac lymphadenopathy, consistent with metastatic disease. 2. Persistent severe left hydronephrosis and proximal left hydroureter secondary to left common iliac lymphadenopathy. Worsened moderate left kidney atrophy. Review of Systems Review of Systems: ROS unobtainable: Yes unobtainable due to mental status PMFSH Past Medical History Medical History Anemia (11/02/20) hemoglobin 12.7 on 11/02/2020. Hemoglobin 12.5 on 11/10/2022. At high risk for falls Atrial fibrillation Benign paroxysmal positional vertigo due to bilateral vestibular disorder BMI 28.0-28.9,adult BMI 29.0-29.9,adult BMI 30.0-30.9,adult CAD (coronary artery disease), [place] coronary artery Chronic anxiety Chronic low back pain X-ray 07/19/2022 with degenerative changes of the lumbar spine with diffuse sclerotic metastatic lesions. Chronic pain of left knee COVID-19 virus detected (~02/16/20) Dermatitis of face (~09/23/22) Eczema Elevated PSA, between 10 and less than 20 ng/ml (11/02/20) PSA 16.3 on 11/02/2020 Eosinophilia (~11/02/20) eosinophil count 1248 on 11/02/2020 Essential hypertension Folliculitis History of prostate cancer Iron deficiency anemia, unspecified total iron 31 with 7% saturation and ferritin 44 with hemoglobin 12.8 on 01/18/2021 Keloid scar Mixed hyperlipidemia Nocturia Obstructive sleep apnea on CPAP does not use CPAP Overweight (BMI 25.0-29.9) Paroxysmal atrial fibrillation Postoperative ileus Prostate cancer PSA 0.5 on 11/10/2022. PSA 4.7 on 03/29/2023. PSA 6.1 on 05/01/2023. Rib pain on left side (~07/09/22) Diffuse metastatic lesions of the spine, ribs, scapula with possible non displaced anterior lateral 9th rib fracture on x-ray 07/19/2022. Tinea cruris Tobacco use disorder, continuous 5 or 6 cigarettes daily Type 2 diabetes mellitus without complication, without long-term current use of insulin Glucose 173 on 11/10/2022. Family History Family History Mother Family history of malignant neoplasm Father
[2023-10-15] MEDS: QUEtiapine FUMARATE 25 MG TABLET 50 MG PO (22:05)
[2023-10-15] MEDS: QUEtiapine FUMARATE 100 MG TABLET PO (22:05)
[2023-10-15] MEDS: predniSONE 10 MG TABLET PO (22:05)
[2023-10-15] MEDS: FLECAINIDE ACETATE 100 MG TABLET PO (22:06)
[2023-10-15 22:45] LABS: Lactic Acid 4.9 mmol/L (0.7-2.0)
[2023-10-16] VITALS (7 sets, daily range): BP systolic 129–161; BP diastolic 56–78; PULSE 77–85; RESP 15–18; TEMP 36.1–36.6; O2SAT 96–99; BMI 26.2
[2023-10-16] MEDS: SODIUM CHLORIDE 0.9% IV 1,000 ML 250 ML IV CONT
[2023-10-16] MEDS: PHYTONADIONE INJ 10 MG/ML AMP SUB-Q ×2 (00:26→06:45)
[2023-10-16 05:21] LABS: Hematocrit 23.5 % (42.0-52.0); Hemoglobin 7.7 g/dL (14.0-18.0)
[2023-10-16 05:33] LABS: Prothrombin Time 58.1 Seconds (11.1-14.7)
[2023-10-16 06:02] LABS: INR 5.9
[2023-10-16 06:07] LABS: Lactic Acid Reflex 1.6 mmol/L (0.7-2.0)
[2023-10-16] MEDS: FERROUS SULFATE 325 MG TABLET DR PO (08:59)
[2023-10-16] MEDS: predniSONE 10 MG TABLET PO ×2 (09:00→17:02)
[2023-10-16] MEDS: QUEtiapine FUMARATE 25 MG TABLET 50 MG PO ×2 (09:00→20:56)
[2023-10-16] MEDS: DULoxetine HCL 60 MG CAPSULE.DR PO (09:00)
[2023-10-16] MEDS: ATORVASTATIN 20 MG TABLET PO (09:00)
[2023-10-16] MEDS: PANTOPRAZOLE SODIUM IV 40 MG VIAL IV PUSH (09:07)
[2023-10-16] MEDS: MORPHINE SULFATE (*CRX) 2 MG/ML INJ IV PUSH (09:07)
--- NOTE | 2023-10-16 09:15 | PM.IMPN ---
Progress Note: A&P Assessment and Plan (1) Blood loss anemia: Code(s): D50.0 - Iron deficiency anemia secondary to blood loss (chronic) Status: Acute Assessment and Plan: admit to regular medical floor transfuse as needed monitor H&H (2) Supratherapeutic INR: Code(s): R79.1 - Abnormal coagulation profile Status: Acute Assessment and Plan: received vitamin K -continue to hold warfarin, repeat INR is 5.9 - recheck in a.m. (3) Essential hypertension: Code(s): I10 - Essential (primary) hypertension Status: Acute Assessment and Plan: blood pressure normotensive, 136/65 consider to hold medication - continue monitor vital signs q.4 hours (4) Type 2 diabetes mellitus without complication, without long-term current use of insulin: Code(s): E11.9 - Type 2 diabetes mellitus without complications Status: Acute Assessment and Plan: hold home metformin -initiate bedside glucose management (5) Paroxysmal atrial fibrillation: Code(s): I48.0 - Paroxysmal atrial fibrillation Status: Acute Assessment and Plan: continue flecainide hold warfarin (6) Prostate cancer: Code(s): C61 - Malignant neoplasm of prostate Status: Acute Assessment and Plan: follow-up in outpatient setting metastatic (7) CAD (coronary artery disease), [place] coronary artery: Qualifiers: [place] vs. transplanted heart: [place] heart Associated angina: without angina Qualified Code(s): I25.10 - Atherosclerotic heart disease of [place] coronary artery without angina pectoris Code(s): I25.10 - Atherosclerotic heart disease of [place] coronary artery without angina pectoris Status: Acute Assessment and Plan: no chest pain (8) Obstructive sleep apnea on CPAP: Code(s): G47.33 - Obstructive sleep apnea (adult) (pediatric); Z99.89 - Dependence on other enabling machines and devices Status: Acute Assessment and Plan: CPAP at nighttime (9) GERD (gastroesophageal reflux disease): Qualifiers: Esophagitis presence: without esophagitis Qualified Code(s): K21.9 - Gastro-esophageal reflux disease without esophagitis Code(s): K21.9 - Gastro-esophageal reflux disease without esophagitis Status: Acute Assessment and Plan: -Continue home PPI (10) UTI (urinary tract infection): Code(s): N39.0 - Urinary tract infection, site not specified Status: Acute Assessment and Plan: -continue ceftriaxone 1 g IV (11) Lactic acidosis: Code(s): E87.20 - Acidosis, unspecified Status: Resolved Assessment and Plan: -resolved lactic acid is 1.6 Plan Continue home medications: as ordered, Son has requested to limit the use of narcotics due to pt has hx of severe addiction and withdrawal, VTE Prophylaxis: SCDs DIET: clear liquid diet Anticipated hospital stay: > 2 days Code Status: full Subjective Date/time seen: 10/16/23 09:15 Interval history: patient seen this morning he is resting with eyes open denies any complaints, patient has requested family contract administration specialist by the bedside his son translates, patient denies any SOB chest pain nausea vomiting fever chills. He reports mild ongoing abdominal pain Review of Systems Review of Systems: All systems reviewed & are unremarkable except as noted in HPI and below Exam Narrative: General: A well-developed, nontoxic-appearing gentlemen, sitting up in bed. HEENT: PERRL, EOMI. Oral mucosa moist. Neck: Supple. No midline cervical tenderness. Respiratory: Respirations are non- labored and lungs are clear to auscultation bilaterally. Cardiovascular: Regular rate and rhythm with S1-S2. Gastrointestinal: Abdomen is soft, non-tender, and non-distended with positive bowel sounds. Skin: Warm and dry. No rash or lesions on limited exam. Extremities: No cyanosis, clubbing,
[2023-10-16 11:38] LABS: Glucose Point of Care 87 mg/dl (65-105)
[2023-10-16] MEDS: FLECAINIDE ACETATE 100 MG TABLET PO ×2 (12:00→20:56)
--- NOTE | 2023-10-16 12:35 | PHAR ---
HOME MED: XSTANDI (ENZALUTAMIDE) 40 MG TABLET, TAKE 4 TABLETS (160 MG) BY MOUTH DAILY, VERIFIED IN PHARMACY 10/16/23 @ 12:36. DRUG NAME: XTANDI INGREDIENTS: ENZALUTAMIDE -- 40 MG RELATED DOCUMENTS: DRUGDEX EVALUATIONS - ENZALUTAMIDE COLOR: YELLOW SHAPE: VENETIE IRA IMPRINT: E 40 FORM: ORAL TABLET -MICROMEDEX
--- NOTE | 2023-10-16 15:18 | WPDGICN ---
Assessment and Plan Assessment and plan (1) Rectal bleeding: Code(s): K62.5 - Hemorrhage of anus and rectum Status: Acute Assessment and Plan: here with rectal bleeding and hematuria, this is from coumadin toxicity hemodynamically stable now he is on coumadin because pAfib anticoagulation on hold we can not perform colonoscopy until inr<1.7, without intervention probably will be another 2-3 days but he is feeling ok now he does not recall having a colonoscopy, he is not best historian (2) GI bleed: Code(s): K92.2 - Gastrointestinal hemorrhage, unspecified Status: Acute Assessment and Plan: from coumadin toxicity (3) Acute on chronic blood loss anemia: Code(s): D62 - Acute posthemorrhagic anemia Status: Acute Assessment and Plan: monitor for more signs of bleeding (4) Lactic acidosis: Code(s): E87.20 - Acidosis, unspecified Status: Resolved (5) Prostate cancer metastatic to bone: Code(s): C61 - Malignant neoplasm of prostate; C79.51 - Secondary malignant neoplasm of bone Status: Acute Assessment and Plan: CT scan reviewed by oncology (6) Supratherapeutic INR: Code(s): R79.1 - Abnormal coagulation profile Status: Acute Assessment and Plan: coumadin now on hold (7) Type 2 diabetes mellitus without complication, without long-term current use of insulin: Code(s): E11.9 - Type 2 diabetes mellitus without complications Status: Acute (8) Paroxysmal atrial fibrillation: Code(s): I48.0 - Paroxysmal atrial fibrillation Status: Acute (9) Hematuria: Code(s): R31.9 - Hematuria, unspecified Status: Acute GI Consult Note Consult date/time: 10/16/23 15:18 Reason for consult: coumadin toxicity, rectal bleeding HPI: Ej Steen is a 78 year old male with history of metastatic prostate cancer on treatment by oncology (previously on zytiga), hypertension, atrial fibrillation on coumadin, heart disease, diabetes mellitus. He came to ER after noted new onset of rectal bleeding and also hematuria. He was having some mild abdominal pain. He only speaks Pashto. Blood work significant for INR of 7, lactic acid of 5, hemoglobin 7.2. CT scan reviewed Stable widespread bone lesions and left common iliac lymphadenopathy, consistent with metastatic disease. Persistent severe left hydronephrosis and proximal left hydroureter secondary to left common iliac lymphadenopathy. Worsened moderate left kidney atrophy. He is comfortable now. Review of Systems Constitutional: Constitutional: Reports weakness Eyes: Eyes: Denies blurry vision ENT: Reports Normal hearing present Cardiovascular: Cardiovascular: Denies chest pain Respiratory: Respiratory: Denies cough Gastrointestinal: Gastrointestinal: Reports hematochezia Genitourinary: Genitourinary: Reports hematuria Musculoskeletal: Musculoskeletal: Reports arthralgias Integumentary/Breasts: Skin/Breast: Denies rash Neurologic: Denies Abnormal speech present Psychiatric: Psychiatric: Denies behavioral changes [facility] Past Medical History Medical History (Updated 10/16/23 @ 15:25 by Zackery Head MD) Acute on chronic blood loss anemia Anemia (11/02/20) hemoglobin 12.7 on 11/02/2020. Hemoglobin 12.5 on 11/10/2022. At high risk for falls Atrial fibrillation Benign paroxysmal positional vertigo due to bilateral vestibular disorder BMI 28.0-28.9,adult BMI 29.0-29.9,adult BMI 30.0-30.9,adult CAD (coronary artery disease), [place] coronary artery Chronic anxiety Chronic low back pain X-ray 07/19/2022 with degenerative changes of the lumbar spine with diffuse sclerotic metastatic lesions. Chronic pain of left knee COVID-19 virus detected (~02/16/20) Dermatitis of face (~09/23/22) Eczema Elevated PSA, between 10 and less than 20 ng/ml (11/02/20) PSA 16.3 on 11/02/2020 Eosinophilia (~11/02/20) eosinophil count 1248 on
[2023-10-16 16:22] LABS: Glucose Point of Care 96 mg/dl (65-105)
[2023-10-16 20:21] LABS: Hematocrit 23.9 % (42.0-52.0); Hemoglobin 7.8 g/dL (14.0-18.0)
[2023-10-16 20:32] LABS: INR 2.3; Prothrombin Time 26.8 Seconds (11.1-14.7)
[2023-10-16] MEDS: QUEtiapine FUMARATE 100 MG TABLET PO (20:56)
[2023-10-17 00:05] LABS: Glucose Point of Care 181 mg/dl (65-105)
[2023-10-17 05:05] VITALS: BP 160/69; PULSE 73; RESP 13; TEMP 36.2; O2SAT 99
[2023-10-17 05:25] LABS: Glucose Point of Care 81 mg/dl (65-105)
[2023-10-17 07:35] LABS: Hematocrit 25.2 % (42.0-52.0); Hemoglobin 8.1 g/dL (14.0-18.0); Mean Corpuscular HGB Conc 32.1 g/dl (32-36); Mean Corpuscular Hemoglobin 27.6 pg (26-34); Mean Corpuscular Volume 85.7 fl (80-100); Mean Platelet Volume 9.4 fl (7.4-10.4); Platelet Count Result 335 k/mm3 (150-375); Red Blood Count 2.94 M/mm3 (4.6-6.20); Red Cell Distribution Width 17.1 % (11.5-14.5); White Blood Count 5.4 K/mm3 (4.5-10.0)
[2023-10-17 07:43] LABS: INR 1.6; Prothrombin Time 20.3 Seconds (11.1-14.7)
[2023-10-17 08:00] LABS: Anion Gap 8 mmol/L (4-12); Blood Urea Nitrogen 18 mg/dL (9-20); Calcium 6.6 mg/dL (8.4-10.2); Carbon Dioxide 19 mmol/L (22-30); Chloride 109 mmol/L (98-107); Estimated CRCL calculation 46 ml/min; Estimated Glomerular Filt Rate > 60; Glucose 85 mg/dL (65-110); Magnesium 1.1 mg/dL (1.6-2.3); Potassium 3.4 mmol/L (3.4-5.0); Sodium 136 mmol/L (137-145)
[2023-10-17] MEDS: MORPHINE SULFATE (*CRX) 2 MG/ML INJ IV PUSH (09:04)
[2023-10-17 09:08] VITALS: PULSE 77
[2023-10-17] MEDS: QUEtiapine FUMARATE 25 MG TABLET 50 MG PO ×2 (09:08→20:18)
[2023-10-17] MEDS: FLECAINIDE ACETATE 100 MG TABLET PO ×2 (09:08→20:19)
[2023-10-17] MEDS: DULoxetine HCL 60 MG CAPSULE.DR PO (09:10)
[2023-10-17] MEDS: ATORVASTATIN 20 MG TABLET PO (09:10)
[2023-10-17] MEDS: FERROUS SULFATE 325 MG TABLET DR PO (09:11)
[2023-10-17] MEDS: PANTOPRAZOLE 40 MG TABLET PO (09:11)
[2023-10-17] MEDS: predniSONE 10 MG TABLET PO ×2 (09:11→18:09)
[2023-10-17] MEDS: MAGNESIUM SULF 4 GM/WATER100ML 4 GM/100 ML BAG IVPB (11:35)
[2023-10-17 11:40] LABS: Glucose Point of Care 122 mg/dl (65-105)
[2023-10-17 14:00] VITALS: BP 165/75; PULSE 88; RESP 18; TEMP 36.1; O2SAT 97
--- NOTE | 2023-10-17 14:25 | P.PNIM_ITS ---
Progress Note: A&P Assessment and Plan (1) Blood loss anemia: Code(s): D50.0 - Iron deficiency anemia secondary to blood loss (chronic) Status: Acute Assessment and Plan: * transfuse as needed * monitor H&H (2) Supratherapeutic INR: Code(s): R79.1 - Abnormal coagulation profile Status: Acute Assessment and Plan: * received vitamin K * continue to hold warfarin, repeat INR is 1.6 this am (3) Essential hypertension: Code(s): I10 - Essential (primary) hypertension Status: Chronic Assessment and Plan: * BP elevated today * restarting home meds (4) Type 2 diabetes mellitus without complication, without long-term current use of insulin: Code(s): E11.9 - Type 2 diabetes mellitus without complications Status: Chronic Assessment and Plan: * hold home metformin * accuchecks, hypoglycemic protocol * low dose sliding scale insulin (5) Paroxysmal atrial fibrillation: Code(s): I48.0 - Paroxysmal atrial fibrillation Status: Chronic Assessment and Plan: * continue flecainide * hold warfarin (6) Prostate cancer: Code(s): C61 - Malignant neoplasm of prostate Status: Chronic Assessment and Plan: * follow-up in outpatient setting * metastatic (7) CAD (coronary artery disease), [place] coronary artery: Qualifiers: [place] vs. transplanted heart: [place] heart Associated angina: without angina Qualified Code(s): I25.10 - Atherosclerotic heart disease of [place] coronary artery without angina pectoris Code(s): I25.10 - Atherosclerotic heart disease of [place] coronary artery without angina pectoris Status: Chronic (8) Obstructive sleep apnea on CPAP: Code(s): G47.33 - Obstructive sleep apnea (adult) (pediatric); Z99.89 - Dependence on other enabling machines and devices Status: Chronic Assessment and Plan: * CPAP at nighttime (9) GERD (gastroesophageal reflux disease): Qualifiers: Esophagitis presence: without esophagitis Qualified Code(s): K21.9 - Gastro-esophageal reflux disease without esophagitis Code(s): K21.9 - Gastro-esophageal reflux disease without esophagitis Status: Chronic Assessment and Plan: * Continue home PPI (10) UTI (urinary tract infection): Code(s): N39.0 - Urinary tract infection, site not specified Status: Ruled-out Assessment and Plan: * UA culture negative * d/c ceftriaxone (11) Lactic acidosis: Code(s): E87.20 - Acidosis, unspecified Status: Resolved Assessment and Plan: * resolved lactic acid is 1.6 Subjective Date/time seen: 10/17/23 14:25 Interval history: Patient in no acute distress this morning, requiring stronger pain medication but his pain was controlled on exam. Patient son at bedside for interpretation. Patient denies any SOB, chest pain. He would like to eat real food today. His INR has come down to 1.6, GI following and hopeful for colonoscopy to be able to be done tomorrow. Awaiting further eval and recs. Review of Systems Review of Systems: All systems reviewed & are unremarkable except as noted in HPI and below Exam Narrative: General: well-developed, in no acute distress, sitting up in bed. HEENT: PERRLA, EOMI. Neck: Supple. Respiratory: lungs are clear to auscultation bilaterally. Cardiovascular: RRR with S1-S2. Gastrointestinal: Abdomen is soft, mildly t
--- NOTE | 2023-10-17 14:25 | PM.IMPN ---
Progress Note: A&P Assessment and Plan (1) Blood loss anemia: Code(s): D50.0 - Iron deficiency anemia secondary to blood loss (chronic) Status: Acute Assessment and Plan: transfuse as needed monitor H&H (2) Supratherapeutic INR: Code(s): R79.1 - Abnormal coagulation profile Status: Acute Assessment and Plan: received vitamin K continue to hold warfarin, repeat INR is 1.6 this am (3) Essential hypertension: Code(s): I10 - Essential (primary) hypertension Status: Chronic Assessment and Plan: BP elevated today restarting home meds (4) Type 2 diabetes mellitus without complication, without long-term current use of insulin: Code(s): E11.9 - Type 2 diabetes mellitus without complications Status: Chronic Assessment and Plan: hold home metformin accuchecks, hypoglycemic protocol low dose sliding scale insulin (5) Paroxysmal atrial fibrillation: Code(s): I48.0 - Paroxysmal atrial fibrillation Status: Chronic Assessment and Plan: continue flecainide hold warfarin (6) Prostate cancer: Code(s): C61 - Malignant neoplasm of prostate Status: Chronic Assessment and Plan: follow-up in outpatient setting metastatic (7) CAD (coronary artery disease), [place] coronary artery: Qualifiers: [place] vs. transplanted heart: [place] heart Associated angina: without angina Qualified Code(s): I25.10 - Atherosclerotic heart disease of [place] coronary artery without angina pectoris Code(s): I25.10 - Atherosclerotic heart disease of [place] coronary artery without angina pectoris Status: Chronic (8) Obstructive sleep apnea on CPAP: Code(s): G47.33 - Obstructive sleep apnea (adult) (pediatric); Z99.89 - Dependence on other enabling machines and devices Status: Chronic Assessment and Plan: CPAP at nighttime (9) GERD (gastroesophageal reflux disease): Qualifiers: Esophagitis presence: without esophagitis Qualified Code(s): K21.9 - Gastro-esophageal reflux disease without esophagitis Code(s): K21.9 - Gastro-esophageal reflux disease without esophagitis Status: Chronic Assessment and Plan: Continue home PPI (10) UTI (urinary tract infection): Code(s): N39.0 - Urinary tract infection, site not specified Status: Ruled-out Assessment and Plan: UA culture negative d/c ceftriaxone (11) Lactic acidosis: Code(s): E87.20 - Acidosis, unspecified Status: Resolved Assessment and Plan: resolved lactic acid is 1.6 Subjective Date/time seen: 10/17/23 14:25 Interval history: Patient in no acute distress this morning, requiring stronger pain medication but his pain was controlled on exam. Patient son at bedside for interpretation. Patient denies any SOB, chest pain. He would like to eat real food today. His INR has come down to 1.6, GI following and hopeful for colonoscopy to be able to be done tomorrow. Awaiting further eval and recs. Review of Systems Review of Systems: All systems reviewed & are unremarkable except as noted in HPI and below Exam Narrative: General: well-developed, in no acute distress, sitting up in bed. HEENT: PERRLA, EOMI. Neck: Supple. Respiratory: lungs are clear to auscultation bilaterally. Cardiovascular: RRR with S1-S2. Gastrointestinal: Abdomen is soft, mildly tender to RLQ, and non-distended with positive bowel sounds. Skin: Warm and dry. No rash or lesions Extremities: No cyanosis, clubbing, or edema. Radial and pedal pulses intact. Neurological: Alert and oriented. Cranial nerves 2-12 are grossly intact. Psychiatric: Pleasant and cooperative with normal mood and affect. Judgment and insight intact. Objective Data Vital Signs Vital Signs: Vital Signs - 24 hr 10/16/23 20:00 10/16/23 21:31 10/17/23 05:05 Temperature 97
--- NOTE | 2023-10-17 14:43 | WPDGIPROGNO ---
Progress Note: A&P Assessment and Plan (1) Acute on chronic blood loss anemia: Code(s): D62 - Acute posthemorrhagic anemia Status: Acute Assessment and Plan: this is from coumadin toxicity which has been already reversed with vitamin k now we can proceed tomorrow with egd and colonoscopy since he never had one (2) Rectal bleeding: Code(s): K62.5 - Hemorrhage of anus and rectum Status: Acute Assessment and Plan: colonoscopy tomorrow (3) Hematuria: Code(s): R31.9 - Hematuria, unspecified Status: Acute (4) Prostate cancer metastatic to bone: Code(s): C61 - Malignant neoplasm of prostate; C79.51 - Secondary malignant neoplasm of bone Status: Acute Assessment and Plan: he is seeing hem-onc as outpatient (5) Supratherapeutic INR: Code(s): R79.1 - Abnormal coagulation profile Status: Acute Assessment and Plan: talked to son at bedside, they did not fully understood how coumadin works and how often needs to be monitored, he did not know that bleeding was related to elevated inr from coumadin. I talked to them at length in Faroese. (6) Type 2 diabetes mellitus without complication, without long-term current use of insulin: Code(s): E11.9 - Type 2 diabetes mellitus without complications Status: Chronic (7) Paroxysmal atrial fibrillation: Code(s): I48.0 - Paroxysmal atrial fibrillation Status: Chronic Subjective Date/time seen: 10/17/23 14:43 Interval history: no more signs of bleeding treated with vitamin k he is comfortable, tolerating regular diet Review of Systems Review of Systems: All systems reviewed & are unremarkable except as noted in HPI and below Exam Const: General: comfortable and no acute distress Other: pleasant HENMT: Face/Nose/Sinus: Normal nares present Eyes: General: appearance normal, both eyes and all related structures Neck: Neck: supple Resp: Auscultation: clear to auscultation bilaterally Cardio: Rate: regular rate Rhythm: regular rhythm GI: Inspection: non-distended GI Palp: Yes Soft to palpation and No Tenderness to palpation present (GI) Auscultation: normal bowel sounds Skin: General skin exam: no rashes or lesions noted Neuro: Speech: normal speech Motor exam (neuro): 5/5 motor strength present throughout Extrem: General: normal to inspection Psych: Mental Status: mental status grossly normal Objective Data Vital Signs Vital Signs: Vital Signs - 24 hr 10/16/23 20:00 10/16/23 21:31 10/17/23 05:05 Temperature 97.4 F L 97.1 F L Pulse Rate 79 73 Respiratory Rate 15 13 Blood Pressure 161/78 H 160/69 H Pulse Oximetry 99 98 99 Oxygen Delivery Room Air 10/17/23 09:08 10/17/23 08:00 10/17/23 14:00 Temperature 96.9 F L Pulse Rate 77 88 Respiratory Rate 18 Blood Pressure 165/75 H Pulse Oximetry 97 Oxygen Delivery Room Air Intake/Output Intake/Output: Intake & Output 10/14/23 10/15/23 10/16/23 10/17/23 23:59 23:59 23:59 23:59 Intake Total 1650 1634 790 Output Total 1000 Balance 1650 634 790 Meds/Results Medications: Active Medications Generic Name Dose Route Start Last Admin Trade Name Freq PRN Reason Stop Dose Admin Acetaminophen 650 mg 10/17/23 08:44 Acetaminophen 325 Mg Tablet PO Q6H PRN Mild Pain (1-3) or Fever Amlodipine Besylate 2.5 mg 10/18/23 09:00 Amlodipine Besylate 2.5 Mg Tablet PO DAILY [facility] Atorvastatin Calcium 20 mg 10/16/23 09:00 10/17/23 09:10 Atorvastatin 20 Mg Tablet PO 20 mg DAILY [facility] Administration Calcium Carbonate 250 mg 10/17/23 17:00 Calcium Carbonate (Oscal) 250 Mg Tablet PO BIDWM [facility] Dextrose 12.5 gm 10/16/23 20:35 Dextrose 50% 25 Gm/50 Ml Syringe IV PUSH PRN PRN Hypoglycemia Protocol Duloxetine HCl 60 mg 10/16/23 09:00 10/17/23 09:10 Duloxetine Hcl 60 Mg Capsule.Dr PO 60 mg DAILY [facility]
[2023-10-17 16:52] LABS: Glucose Point of Care 112 mg/dl (65-105)
[2023-10-17] MEDS: polyethylene glycoL 3350 238 GM BOTTLE PO (18:09)
[2023-10-17] MEDS: BISACODYL 5 MG TABLET EC 20 MG PO (18:09)
[2023-10-17] MEDS: CALCIUM CARBONATE (OSCAL) 250 MG TABLET PO (18:35)
[2023-10-17 20:15] LABS: Glucose Point of Care 172 mg/dl (65-105)
[2023-10-17 20:19] VITALS: PULSE 82
[2023-10-17] MEDS: QUEtiapine FUMARATE 100 MG TABLET PO (20:19)
[2023-10-17] MEDS: ACETAMINOPHEN 325 MG TABLET 650 MG PO (20:23)
[2023-10-17 21:31] VITALS: BP 163/72; PULSE 78; RESP 16; TEMP 36.6; O2SAT 97
[2023-10-18] VITALS (8 sets, daily range): BP systolic 103–159; BP diastolic 53–70; PULSE 60–78; RESP 13–20; TEMP 36.2–36.6; O2SAT 94–100
[2023-10-18] MEDS: MAGNESIUM CITRATE 300 ML BTL PO (02:15)
[2023-10-18 07:38] LABS: Basophils Absolute Auto 0.1 K/mm3 (0.0-0.1); Basophils Percent Auto 0.5 % (0.2-1.2); Eosinophils Absolute Auto 0.1 K/mm3 (0-0.3); Eosinophils Percent Auto 0.6 % (0-4.4); Hemoglobin 8.6 g/dL (14.0-18.0); Immature Granulocyte Absolute 0.18 K/mm3 (0.00-0.031); Immature Granulocyte Percent A 1.9 % (0-0.5); Lymphocytes Absolute Auto 2.13 K/mm3 (0.9-3.2); Lymphocytes Percent Auto 22.8 % (18.3-44.2); Mean Corpuscular HGB Conc 31.9 g/dl (32-36); Mean Corpuscular Hemoglobin 27.9 pg (26-34); Mean Corpuscular Volume 87.7 fl (80-100); Mean Platelet Volume 9.2 fl (7.4-10.4); Monocytes Absolute Auto 1.1 K/mm3 (0.1-0.6); Monocytes Percent Auto 11.3 % (2.6-8.5); Neutrophils Absolute Auto 5.9 K/mm3 (1.3-6.7); Neutrophils Percent Auto 62.9 % (45.5-73.1); Nucleated Red Blood Cells Perc 0.9 % (0.0-0.2); Platelet Count Result 336 k/mm3 (150-375); Red Blood Count 3.08 M/mm3 (4.6-6.20); Red Cell Distribution Width 17.4 % (11.5-14.5); White Blood Count 9.4 K/mm3 (4.5-10.0)
[2023-10-18 07:47] LABS: INR 1.2; Prothrombin Time 15.9 Seconds (11.1-14.7)
[2023-10-18 07:50] LABS: Calcium 7.1 mg/dL (8.4-10.2); Magnesium 2.1 mg/dL (1.6-2.3)
[2023-10-18 07:53] LABS: Anion Gap 10 mmol/L (4-12); Blood Urea Nitrogen 15 mg/dL (9-20); Carbon Dioxide 18 mmol/L (22-30); Chloride 106 mmol/L (98-107); Estimated CRCL calculation 50 ml/min; Estimated Glomerular Filt Rate > 60; Glucose 112 mg/dL (65-110); Potassium 3.4 mmol/L (3.4-5.0); Sodium 134 mmol/L (137-145)
[2023-10-18] MEDS: METOPROLOL SUCCINATE EXT REL 25 MG TABCR PO (08:29)
[2023-10-18] MEDS: PANTOPRAZOLE 40 MG TABLET PO (08:30)
[2023-10-18] MEDS: FLECAINIDE ACETATE 100 MG TABLET PO (08:30)
[2023-10-18] MEDS: ACETAMINOPHEN 325 MG TABLET 650 MG PO (08:30)
[2023-10-18 08:35] LABS: Glucose Point of Care 101 mg/dl (65-105)
--- NOTE | 2023-10-18 11:31 | PC.NURSE ---
To GI Lab per wheelchair, IV saline locked. Report given to JP Shore.
[2023-10-18 11:36] LABS: Glucose Point of Care 99 mg/dl (65-105)
--- NOTE | 2023-10-18 11:36 | WPDANESEPPF ---
Anes - Initial Pre Proc Eval Procedure: Operation Date: 10/18/23 13:00 Proposed Procedures p Esophagogastroduodenoscopy & Colonoscopy - Zackery Head MD Date/Time: 10/18/23 11:36 Surgeon: Jorge Francis MD Pre Op Diagnosis: Supratherapeuti INR,Lower GI Bleed,Lower Abd Pain Patient Data Age: 78 Gender: M Height: 1.7 m Weight: 75.75 kg Last Vital Signs Temp 97.3 F L 10/18/23 05:47 Pulse 78 10/18/23 08:30 Resp 13 10/18/23 05:47 BP 145/68 H 10/18/23 05:47 Pulse Ox 98 10/18/23 05:47 O2 Del Method Room Air 10/17/23 08:00 Allergies Allergy/AdvReac Type Severity Reaction Status Date / Time No Known Allergies Allergy Verified 10/18/23 11:32 Home Medications Medication Instructions Recorded Confirmed Type atorvastatin 20 mg tablet 20 mg PO DAILY 06/04/19 10/15/23 History flecainide 100 mg tablet 100 mg PO Q12H 06/04/19 10/15/23 History ferrous sulfate 325 mg (65 mg 325 mg PO DAILY #30 tabs 01/19/21 10/15/23 Rx iron) tablet prednisone 5 mg tablet 10 mg PO BID 11/07/21 10/15/23 History blood sugar diagnostic (OneTouch #100 ea 02/22/22 10/16/23 Rx Verio test strips) lancets 30 gauge (OneTouch Delica #100 ea 02/22/22 10/16/23 Rx Lancets) warfarin 4 mg tablet 4 mg PO DAILY 06/06/22 10/15/23 History metoprolol succinate 25 mg 25 mg PO DAILY 08/17/22 10/15/23 History tablet,extended release 24 hr duloxetine 60 mg capsule,delayed 60 mg PO DAILY #90 caps 12/04/22 10/15/23 Rx release metformin 500 mg tablet,extended 2,000 mg PO DAILY #360 tabs 12/04/22 10/15/23 Rx release 24 hr triamcinolone acetonide 0.5 % 1 applic topical BID PRN Rash #45 03/19/23 10/15/23 Rx topical cream grams quetiapine 100 mg tablet 100 mg PO .COMPLEX #60 tabs 09/25/23 03/25/24 Rx losartan 50 mg tablet 50 mg PO DAILY 08/07/23 10/15/23 History amlodipine 2.5 mg tablet 2.5 mg PO DAILY 09/01/23 10/15/23 History esomeprazole magnesium 40 mg 40 mg PO DAILY #90 caps 09/04/23 10/15/23 Rx capsule,delayed release (Nexium) doxycycline hyclate 100 mg capsule 100 mg PO DAILY 10/15/23 10/15/23 History enzalutamide 40 mg capsule (Xtandi) 160 mg PO DAILY 10/15/23 10/15/23 History Laboratory Tests 10/17/23 10/17/23 10/17/23 11:35 16:49 20:10 WBC RBC Hgb Hct MCV MCH MCHC RDW Plt Count MPV Immature Gran % (Auto) Neut % (Auto) Lymph % (Auto) [place] % (Auto) Eos % (Auto) Baso % (Auto) Lymph # (Auto) [place] # (Auto) Eos # (Auto) Baso # (Auto) Abs Immat Gran (auto) Absolute Neuts (auto) Absolute Nucleated RBC Nucleated RBC % PT INR Sodium Potassium Chloride Carbon Dioxide Anion Gap BUN Creatinine Estim Creat Clear Calc Estimated GFR Glucose POC Capillary Glucose 122 H mg/dl 112 H mg/dl 172 H mg/dl (65-105) (65-105) (65-105) Calcium Magnesium 10/18/23 10/18/23 10/18/23 07:07 07:07 08:30 WBC 9.4 K/mm3 (4.5-10.0) RBC 3.08 L M/mm3 (4.6-6.20) Hgb 8.6 L g/dL (14.0-18.0) Hct 27.0 L % (42.0-52.0) MCV 87.7 fl (80-100) MCH 27.9 pg (26-34) MCHC 31.9 L g/dl (32-36) RDW 17.4 H % (11.5-14.5) Plt Count 336 k/mm3 (150-375) MPV 9.2 fl (7.4-10.4) Immature Gran % (Auto) 1.9 H % (0-0.5) Neut % (Auto) 62.9 % (45.5-73.1) Lymph % (Auto) 22.8 % (18.3-44.2) [place] % (Auto) 11.3 H % (2.6-8.5) Eos % (Auto) 0.6 % (0-4.4) Baso % (Auto) 0.5 % (0.2-1.2) Ly
[2023-10-18] MEDS: LACTATED RINGERS 1,000 ML 150 ML IV CONT (11:40)
--- NOTE | 2023-10-18 11:42 | SUR.PREOP ---
Used [facility] translator/interpreter Mesha #[phone] for all preop questions and anesthesia questions.
--- NOTE | 2023-10-18 12:34 | SUR.PREOP ---
Patient had questions about when he would be able to eat. I used bingo attendant Fransisco #[id number] to answer patient's questions.
--- NOTE | 2023-10-18 13:07 | SUR.OPER ---
EGD: START- 1306, END-1307. COLON: START-1311 END-1323
--- NOTE | 2023-10-18 13:52 | SUR.PHASEII ---
Geographic Information Systems Director used to go through post op instructions. Carlos #[id number]
[2023-10-18 14:30] LABS: Glucose Point of Care 93 mg/dl (65-105)
[2023-10-18] MEDS: DULoxetine HCL 60 MG CAPSULE.DR PO (15:33)
[2023-10-18] MEDS: predniSONE 10 MG TABLET PO (15:34)
[2023-10-18] MEDS: FERROUS SULFATE 325 MG TABLET DR PO (15:34)
[2023-10-18] MEDS: ATORVASTATIN 20 MG TABLET PO (15:34)
[2023-10-18] MEDS: amLODIPine BESYLATE 2.5 MG TABLET PO (15:34)
[2023-10-18] MEDS: LOSARTAN POTASSIUM 50 MG TABLET PO (15:34)
--- NOTE | 2023-10-18 15:37 | PM.DS ---
DS: Admitting Diagnosis Discharge Date 10/18/23 Admitting Diagnosis abdominal pain DS: Discharge Diagnosis Discharge Diagnosis (1) Blood loss anemia: Code(s): D50.0 - Iron deficiency anemia secondary to blood loss (chronic) Status: Resolved (2) Supratherapeutic INR: Code(s): R79.1 - Abnormal coagulation profile Status: Resolved (3) Essential hypertension: Code(s): I10 - Essential (primary) hypertension Status: Chronic (4) Type 2 diabetes mellitus without complication, without long-term current use of insulin: Code(s): E11.9 - Type 2 diabetes mellitus without complications Status: Chronic (5) Paroxysmal atrial fibrillation: Code(s): I48.0 - Paroxysmal atrial fibrillation Status: Chronic (6) Prostate cancer: Code(s): C61 - Malignant neoplasm of prostate Status: Chronic Assessment and Plan: follow-up in outpatient setting metastatic (7) CAD (coronary artery disease), [place] coronary artery: Qualifiers: [place] vs. transplanted heart: [place] heart Associated angina: without angina Qualified Code(s): I25.10 - Atherosclerotic heart disease of [place] coronary artery without angina pectoris Code(s): I25.10 - Atherosclerotic heart disease of [place] coronary artery without angina pectoris Status: Chronic (8) Obstructive sleep apnea on CPAP: Code(s): G47.33 - Obstructive sleep apnea (adult) (pediatric); Z99.89 - Dependence on other enabling machines and devices Status: Chronic Assessment and Plan: CPAP at nighttime (9) GERD (gastroesophageal reflux disease): Qualifiers: Esophagitis presence: without esophagitis Qualified Code(s): K21.9 - Gastro-esophageal reflux disease without esophagitis Code(s): K21.9 - Gastro-esophageal reflux disease without esophagitis Status: Chronic DS: Summary Hospital Course Hospital Course: Patient is a 78-year-old male with with PMH of metastatic prostate cancer, GERD, hypertension, atrial fibrillation, rate controlled and anticoagulated, type 2 diabetes mellitus. Patient admitted due to abdominal pain blood in the stools and urine. Preliminary workup was significant for INR of 7, lactic acid of 5, hemoglobin 7.2 a urinalysis showed numerous WBCs present. Patient was found to be supratherapeutic on his Warfarin, held and able to have EGD/colonoscopy done today with GI. Polyps collected for biopsy, but no signs of upper or lower GI bleeding found. Discussed condition, follow up and restarting of warfarin on lower dose with repeat lab ordered for next week discussed at length with both of his sons separately. Patient stable for d/c if tolerating diet post procedure. Status at Discharge Functional status at discharge: independent ambulation Overall status at discharge: patient is back to baseline Exam Narrative: General: well-developed, in no acute distress, sitting up in bed. HEENT: PERRLA, EOMI. Neck: Supple. Respiratory: lungs are clear to auscultation bilaterally. Cardiovascular: RRR with S1-S2. Gastrointestinal: Abdomen is soft, non-tender, and non-distended with positive bowel sounds. Skin: Warm and dry. No rash or lesions Extremities: No cyanosis, clubbing, or edema. Radial and pedal pulses intact. Neurological: Alert and oriented. Cranial nerves 2-12 are grossly intact. Psychiatric: Pleasant and cooperative with normal mood and affect. Judgment and insight intact. DS: Data Data Completed and Pending Pending studies at discharge: Pending at discharge 10/18/23 13:23 Surgical [PTH] Routine Labs on day of discharge: Labs from last 24 hours 10/18/23 10/18/23 10/18/23 14:26 11:34 08:30 WBC RBC Hgb Hct MCV MCH MCHC RDW Plt Count MPV Immature Gran % (Auto) Neut % (Auto) Lymph % (Auto) [place] % (Auto) Eos % (Auto) Baso % (Auto) Lymph # (Auto) Mo
--- NOTE | 2023-10-18 15:48 | PM.IMPN ---
Progress Note: A&P Assessment and Plan (1) Blood loss anemia: Code(s): D50.0 - Iron deficiency anemia secondary to blood loss (chronic) Status: Resolved (2) Supratherapeutic INR: Code(s): R79.1 - Abnormal coagulation profile Status: Resolved (3) Essential hypertension: Code(s): I10 - Essential (primary) hypertension Status: Chronic (4) Type 2 diabetes mellitus without complication, without long-term current use of insulin: Code(s): E11.9 - Type 2 diabetes mellitus without complications Status: Chronic (5) Paroxysmal atrial fibrillation: Code(s): I48.0 - Paroxysmal atrial fibrillation Status: Chronic (6) Prostate cancer: Code(s): C61 - Malignant neoplasm of prostate Status: Chronic Assessment and Plan: follow-up in outpatient setting metastatic (7) CAD (coronary artery disease), [place] coronary artery: Qualifiers: [place] vs. transplanted heart: [place] heart Associated angina: without angina Qualified Code(s): I25.10 - Atherosclerotic heart disease of [place] coronary artery without angina pectoris Code(s): I25.10 - Atherosclerotic heart disease of [place] coronary artery without angina pectoris Status: Chronic (8) Obstructive sleep apnea on CPAP: Code(s): G47.33 - Obstructive sleep apnea (adult) (pediatric); Z99.89 - Dependence on other enabling machines and devices Status: Chronic Assessment and Plan: CPAP at nighttime (9) GERD (gastroesophageal reflux disease): Qualifiers: Esophagitis presence: without esophagitis Qualified Code(s): K21.9 - Gastro-esophageal reflux disease without esophagitis Code(s): K21.9 - Gastro-esophageal reflux disease without esophagitis Status: Chronic Subjective Date/time seen: 10/18/23 15:48 Review of Systems Review of Systems: All systems reviewed & are unremarkable except as noted in HPI and below Exam Narrative: General: well-developed, in no acute distress, sitting up in bed. HEENT: PERRLA, EOMI. Neck: Supple. Respiratory: lungs are clear to auscultation bilaterally. Cardiovascular: RRR with S1-S2. Gastrointestinal: Abdomen is soft, non-tender, and non-distended with positive bowel sounds. Skin: Warm and dry. No rash or lesions Extremities: No cyanosis, clubbing, or edema. Radial and pedal pulses intact. Neurological: Alert and oriented. Cranial nerves 2-12 are grossly intact. Psychiatric: Pleasant and cooperative with normal mood and affect. Judgment and insight intact. Objective Data Vital Signs Vital Signs: Vital Signs - 24 hr 10/17/23 20:19 10/17/23 21:31 10/18/23 05:47 Temperature 97.9 F 97.3 F L Pulse Rate 82 78 76 Respiratory Rate 16 13 Blood Pressure 163/72 H 145/68 H Pulse Oximetry 97 98 Oxygen Delivery 10/18/23 08:29 10/18/23 08:30 10/18/23 11:34 Temperature 97.2 F L Pulse Rate 78 78 68 Respiratory Rate 16 Blood Pressure 159/70 H Pulse Oximetry 99 Oxygen Delivery Room Air 10/18/23 13:29 10/18/23 13:39 10/18/23 13:49 Temperature Pulse Rate 60 60 63 Respiratory Rate 15 15 20 Blood Pressure 127/60 103/53 L 121/58 L Pulse Oximetry 97 96 100 Oxygen Delivery Room Air Room Air Room Air 10/18/23 14:40 Temperature 97.9 F Pulse Rate 62 Respiratory Rate 18 Blood Pressure 156/65 H Pulse Oximetry 94 Oxygen Delivery Intake/Output Intake/Output: Intake & Output 10/15/23 10/16/23 10/17/23 10/18/23 23:59 23:59 23:59 23:59 Intake Total 1650 1634 1400 500 Output Total 1000 Balance 4152 192 3715 500 Meds/Results Medications: Active Medications Generic Name Dose Route Start Last Admin Trade Name Freq PRN Reason Stop Dose Admin Acetaminophen 650 mg 10/17/23 08:44 10/18/23 08:30 Acetaminophen 325 Mg Tablet PO 650 mg Q6H PRN Administration Mild Pain (1-3) or Fever Amlodipine Besylate 2.5 mg 10/18/23 09:00
== END 2023-10-18 16:20 | disposition home or self-care (01) | DRG 378 ==
LOC: ANHED 13:15 → ANH3MEDSUR 14:14
PROVIDERS: Internal Medicine; Internal Medicine Gastroenterology; Physician Assistant; Admitting Provider Internal Medicine; Emergency Provider Emergency Medicine; PCP Family Medicine; Visit Provider Nurse Practitioner
PROC: 0DJ08ZZ Inspection of Upper Intestinal Tract, Via Natural or Artificial Opening Endoscopic (ICD-10-PCS; CPT 43235; principal; 2023-10-18 13:00)
DX: K62.5 Hemorrhage of anus and rectum (principal); C79.51 Secondary malignant neoplasm of bone; D62 Acute posthemorrhagic anemia; N39.0 Urinary tract infection, site not specified; Z79.01 Long term (current) use of anticoagulants; R79.1 Abnormal coagulation profile; K63.5 Polyp of colon; K64.8 Other hemorrhoids; E11.9 Type 2 diabetes mellitus without complications; I48.0 Paroxysmal atrial fibrillation; I10 Essential (primary) hypertension; C61 Malignant neoplasm of prostate; I25.10 Atherosclerotic heart disease of native coronary artery without angina pectoris; G47.33 Obstructive sleep apnea (adult) (pediatric); K21.9 Gastro-esophageal reflux disease without esophagitis; R31.9 Hematuria, unspecified; E78.2 Mixed hyperlipidemia; F41.9 Anxiety disorder, unspecified; Z86.16 Personal history of COVID-19; Z87.891 Personal history of nicotine dependence
CPT/HCPCS: 36415; 36430; 74177; 80048; 80053; 81001; 82310; 82948; 83605; 83690; 83735; 85014; 85018; 85025; 85027; 85610; 85730; 86850; 86900; 86901; 86923; 87086; 88305; 96365; 96372; 96375; 96376; 99285; A9270; C9113; G0378; J0696; J1170; J2270; J2405; J2704; J3430; J3475; J7030; J7050; J7120; J7512; P9016; Q9967

== ENCOUNTER 2023-11-20 22:27 | Emergency (ER) | payer MEDICARE, SELFPAY ==
--- NOTE | ~2023-11-20 | CT_ITS ---
EXAMINATION: CT brain wo con DATE: 11/20/2023 22:58 INDICATION: THUNDERCLAP HEADACHE . TECHNIQUE: Computed tomography (CT) of the head was performed without intravenous contrast. The mA wa s adjusted according to patient size. Iterative reconstruction technique was employed. The dose-lengt h product was 681.00 mGy-cm. COMPARISON: 03/07/2006; MR brain 06/25/2006. FINDINGS: No acute intracranial hemorrhage or extra-axial fluid collection. No hydrocephalus, mass, or herniation. No acute ischemic infarct. Unremarkable dural venous sinus attenuation. No acute osseous abnormality. Ethmoid and maxillary mucosal thickening. Aerated secretions in the right sphenoid sinus. aerated spa lance are clear. Mild atrophy and chronic white matter change. Atherosclerotic intracranial calcification. IMPRESSION: No acute intracranial process. Aerated secretions in the right sphenoid sinus may reflect acute sinusitis in the appropriate clinica l context. Reviewed, dictated and finalized at location K. IMPRESSION: No acute intracranial process. Aerated secretions in the right sphenoid sinus may reflect acute sinusitis in t he appropriate clinical context.
--- NOTE | ~2023-11-20 | CT_ITS ---
EXAMINATION: CTA brain carotid DATE: 11/20/2023 23:16 INDICATION: Thunderclap headache TECHNIQUE: Computed tomographic angiography (CTA) of the head and neck was performed with 100 mL Omni paque-350 intravenous contrast. Automated exposure control and iterative reconstruction technique wer e employed. The dose-length product was 1214.95 mGy-cm. Maximum intensity projection images were cre ated by the technologist on a separate workstation. COMPARISON: CT brain, same date; CT cap 08/24/2023. FINDINGS: CTA HEAD: No large vessel occlusion, high flow vascular malformation, nidus or extravasation. Small volume righ t frontal extra-axial hyperdensity measuring up to 5 mm in thickness. Minimal atherosclerotic calcifi cations in the cavernous carotids bilaterally. 4 mm saccular and aneurysm projecting off the supracli noid right internal carotid artery. Scattered areas of mild atherosclerotic irregularity in the intra cranial vessels. Patent cerebral veins. Symmetric parenchymal enhancement. CTA NECK: Aortic arch and proximal great vessels: Minimal calcified plaque at the aortic arch. Hypoplastic left vertebral artery originates off the arch, a normal variant. Right common carotid, carotid bifurcation, and internal carotid artery: Mild calcification at the bif urcation.There is 0% stenosis of the proximal right internal carotid artery relative to normal distal artery lumen diameter (NASCET criteria). Left common carotid, carotid bifurcation, and internal carotid artery: Mild constipation at the bifur cation.There is 0% stenosis of the proximal left internal carotid artery relative to normal distal ar mati lumen diameter (NASCET criteria). Vertebral arteries: No significant plaque or stenosis. Right vertebral artery is dominant. 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 Other findings: Multiple sclerotic lesions in the bones. The pulmonary nodule detected in the prior C T of the chest abdomen and pelvis has decreased in size and is benign. IMPRESSION: Small volume right frontal extra-axial collection, likely representing subdural hemorrhage, measuring up to 5 mm in thickness. 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 No large vessel intracranial occlusion or high-grade intracranial stenosis. No carotid or vertebral artery occlusion, dissection, or significant stenosis. Multiple sclerotic osseous metastases. The presence of small subdural hemorrhage discussed with Dr. Armstrong telephonically by Dr. Hopper 11:25 P M on 11/20/2023. Reviewed, dictated and finalized at location K. IMPRESSION: Small volume right frontal extra-axial collection, likely representing subdural hemorrhage, measuring up to 5 mm in thickness. 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 No large vessel intracranial occlusion or high-grade intracranial stenosis. No carotid or vertebral artery occlusion, dissection, or significant stenosis. Multiple sclerotic osseous metastases. The presence of small subdural hemorrhage discussed with Dr. Patti nichols y by Dr. Hopper 11:25 PM on 11/20/2023.
--- NOTE | ~2023-11-20 | XR_ITS ---
EXAMINATION: XR chest 1V portable Exam Date/Time: 11/20/2023 23:05 CDT HISTORY: cva, history of prostate cancer Comparison: 07/19/2022; CT cap 08/24/2023. RESULT: Lines, tubes, and devices: None. Lungs and pleura: Multiple nodular appearing opacities in the right lung, no correlate in the visual ized lung on the concurrent CTA brain carotid examination. Mild diffuse reticular opacities. Granulom atous calcifications. Cardiomediastinal silhouette: Stable. Other: No acute osseous or upper abdominal finding. Multiple sclerotic lesions in the visualized bon es. IMPRESSION: Mild interstitial edema versus senescent change. Sclerotic osseous metastases. Reviewed, dictated and finalized at location K.
[2023-11-20 22:39] VITALS: BP 164/70; PULSE 79; RESP 15; TEMP 36.4; O2SAT 99
[2023-11-20 22:58] LABS: Estimated CRCL calculation 39 ml/min; Estimated Glomerular Filt Rate 45
[2023-11-20 22:58] LABS: Basophils Absolute Auto 0.1 K/mm3 (0.0-0.1); Basophils Percent Auto 1.1 % (0.2-1.2); Eosinophils Absolute Auto 0.7 K/mm3 (0-0.3); Eosinophils Percent Auto 7.2 % (0-4.4); Hematocrit 24.9 % (42.0-52.0); Hemoglobin 7.6 g/dL (14.0-18.0); Immature Granulocyte Absolute 0.13 K/mm3 (0.00-0.031); Immature Granulocyte Percent A 1.4 % (0-0.5); Lymphocytes Absolute Auto 2.05 K/mm3 (0.9-3.2); Lymphocytes Percent Auto 22.8 % (18.3-44.2); Mean Corpuscular HGB Conc 30.5 g/dl (32-36); Mean Corpuscular Volume 88.6 fl (80-100); Mean Platelet Volume 8.9 fl (7.4-10.4); Monocytes Absolute Auto 0.9 K/mm3 (0.1-0.6); Monocytes Percent Auto 9.9 % (2.6-8.5); Neutrophils Absolute Auto 5.2 K/mm3 (1.3-6.7); Neutrophils Percent Auto 57.6 % (45.5-73.1); Nucleated Red Blood Cells Perc 0.3 % (0.0-0.2); Platelet Count Result 513 k/mm3 (150-375); Red Blood Count 2.81 M/mm3 (4.6-6.20); Red Cell Distribution Width 18.3 % (11.5-14.5)
[2023-11-20 23:11] LABS: INR 1.1; Prothrombin Time 14.5 Seconds (11.1-14.7)
[2023-11-20 23:12] LABS: Alanine Aminotransferase 34 U/L (6-50); Albumin Level 3.8 g/dL (3.5-5.1); Alkaline Phosphatase 781 U/L (38-126); Anion Gap 10 mmol/L (4-12); Aspartate Amino Transferase 48 U/L (17-59); Bilirubin,Total 0.4 mg/dL (0.2-1.3); Blood Urea Nitrogen 17 mg/dL (9-20); Carbon Dioxide 20 mmol/L (22-30); Chloride 105 mmol/L (98-107); Estimated CRCL calculation 45 ml/min; Estimated Glomerular Filt Rate 53; Glucose 117 mg/dL (65-110); Partial Thromboplastin Time 36.4 Seconds (22.3-36.8); Potassium 4.3 mmol/L (3.4-5.0); Sodium 135 mmol/L (137-145)
[2023-11-20 23:19] VITALS: BP 163/72; PULSE 78; PULSE 79; RESP 17; TEMP 36.8; O2SAT 100
[2023-11-20 23:20] VITALS: BP 163/72; PULSE 72; RESP 16; O2SAT 100
[2023-11-20 23:23] LABS: Troponin I < 0.012 ng/mL (0.000-0.034)
[2023-11-20 23:57] LABS: Appearance Urine Clear (Clear); Bilirubin Urine Negative (Negative); Blood Urine Negative (Negative); Color Urine Dark Yellow (Yellow); Glucose Urine UA Negative (Negative); Ketones Urine Negative (Negative); Leukocyte Esterase Ur Negative LEU/UL (Negative); Nitrate Urine Negative (Negative); Protein Urine Negative (Negative); Urobilinogen Urine 0.2 mg/dL (<2.0)
[2023-11-21 00:14] LABS: Amphetamine Screen Urine Negative (Negative); Barbiturate Screen Urine Negative (Negative); Benzodiazepines Screen Urine Negative (Negative); Cannabinoid Screen Urine Negative (Negative); Cocaine Screen Urine Negative (Negative); Methadone Screen Urine Negative (Negative); Opiate Screen Urine Negative (Negative); Phencyclidine Screen Urine Negative (Negative)
[2023-11-21 00:15] LABS: Add Urine Microscopic? NO; Specific Grav Ur 1.031 (1.001-1.035)
--- NOTE | 2023-11-21 00:35 | ED.GENADULT ---
HPI - General Adult General Chief complaint: Neuro Symptoms/Deficit Stated complaint: HTN, headache Time Seen by Provider: 11/20/23 22:41 History of Present Illness HPI narrative: This is a 78-year-old Fijian-speaking male presenting ED with headache. Headache started at 9:00 p.m.. It is s across the front of his head and is associated with tingling in his arms. Patient did not lose consciousness. He did not have any falls. He has no other complaints at this time. Patient is on Coumadin for paroxysmal AFib. Related Data Home Medications Medication Instructions Recorded Confirmed atorvastatin 20 mg tablet 20 mg PO DAILY 06/04/19 11/12/23 flecainide 100 mg tablet 100 mg PO Q12H 06/04/19 11/12/23 prednisone 5 mg tablet 10 mg PO BID 11/07/21 11/12/23 metoprolol succinate 25 mg 25 mg PO DAILY 08/17/22 11/12/23 tablet,extended release 24 hr losartan 50 mg tablet 50 mg PO DAILY 08/07/23 11/12/23 warfarin 3 mg tablet 3 mg PO DAILY 11/08/23 11/12/23 Allergies Allergy/AdvReac Type Severity Reaction Status Date / Time No Known Allergies Allergy Verified 11/08/23 10:39 [facility] Past Medical History Medical History Acute on chronic blood loss anemia Anemia (11/02/20) hemoglobin 12.7 on 11/02/2020. Hemoglobin 12.5 on 11/10/2022. At high risk for falls Atrial fibrillation Benign paroxysmal positional vertigo due to bilateral vestibular disorder BMI 28.0-28.9,adult BMI 29.0-29.9,adult BMI 30.0-30.9,adult Bone metastases CAD (coronary artery disease), [place] coronary artery Chronic anxiety Chronic low back pain X-ray 07/19/2022 with degenerative changes of the lumbar spine with diffuse sclerotic metastatic lesions. Chronic pain of left knee COVID-19 virus detected (~02/16/20) Dermatitis of face (~09/23/22) Eczema Elevated PSA, between 10 and less than 20 ng/ml (11/02/20) PSA 16.3 on 11/02/2020 Eosinophilia (~11/02/20) eosinophil count 1248 on 11/02/2020 Essential hypertension Folliculitis Hematuria History of prostate cancer Iron deficiency anemia, unspecified total iron 31 with 7% saturation and ferritin 44 with hemoglobin 12.8 on 01/18/2021 Keloid scar Mixed hyperlipidemia Nocturia Obstructive sleep apnea on CPAP does not use CPAP Overweight (BMI 25.0-29.9) Paroxysmal atrial fibrillation Postoperative ileus Prostate cancer PSA 0.5 on 11/10/2022. PSA 4.7 on 03/29/2023. PSA 6.1 on 05/01/2023. Prostate cancer metastatic to bone Rectal bleeding Rib pain on left side (~07/09/22) Diffuse metastatic lesions of the spine, ribs, scapula with possible non displaced anterior lateral 9th rib fracture on x-ray 07/19/2022. Tinea cruris Tobacco use disorder, continuous 5 or 6 cigarettes daily Tubular adenoma of colon (09/19/23) tubular adenoma sigmoid colon 10/18/2023. Type 2 diabetes mellitus without complication, without long-term current use of insulin Glucose 173 on 11/10/2022. Family History Family History Mother Family history of malignant neoplasm Father Family history of malignant neoplasm Social History Social History Smoking packs per day: 1 Smoking cigarettes per day: 20.0 Years smoked: 60 Smoking pack-years: 60.00 Smoking status: Former smoker Tobacco type: cigarettes Additional smoking assessment comments: 0.2 PACK/DAY Alcohol intake: never Alcohol use details: HEAVIER DRINKER - QUIT EARLY Substance use: never Substance use type: does not use Do You Feel Safe in your Home?: Yes Lack of Transportation: No Lack of Food: Never True Current Housing: I Have Housing Concerned About Future Housing: No Difficulty Paying Gas/Electric Bills: No Difficulty Paying for Meds: No Currently Unemployed: No Education: Grade School Difficulty w/ Childcare or Family Care: No Living arr
[2023-11-21 00:55] VITALS: BP 182/89; PULSE 78; RESP 16; O2SAT 100
[2023-11-21 01:37] VITALS: BP 181/81; PULSE 74; RESP 16; TEMP 36.6; O2SAT 100
== END 2023-11-21 01:41 | disposition short-term general hospital (02) ==
PROVIDERS: Emergency Provider Emergency Medicine; PCP Family Medicine
DX: I62.01 Nontraumatic acute subdural hemorrhage (principal); R29.700 NIHSS score 0; I48.0 Paroxysmal atrial fibrillation; I25.10 Atherosclerotic heart disease of native coronary artery without angina pectoris; I10 Essential (primary) hypertension; C79.51 Secondary malignant neoplasm of bone; C61 Malignant neoplasm of prostate; E11.9 Type 2 diabetes mellitus without complications; E78.2 Mixed hyperlipidemia; D50.9 Iron deficiency anemia, unspecified; D12.6 Benign neoplasm of colon, unspecified; G47.33 Obstructive sleep apnea (adult) (pediatric); F41.9 Anxiety disorder, unspecified; Z85.46 Personal history of malignant neoplasm of prostate; Z86.16 Personal history of COVID-19; Z79.01 Long term (current) use of anticoagulants; Z79.84 Long term (current) use of oral hypoglycemic drugs; Z79.899 Other long term (current) drug therapy; I72.0 Aneurysm of carotid artery; R93.3 Abnormal findings on diagnostic imaging of other parts of digestive tract
CPT/HCPCS: 36415; 70450; 70496; 70498; 71045; 80053; 80307; 81003; 84484; 85025; 85610; 85730; 99285; Q9967

== ENCOUNTER 2023-11-30 07:45 | Outpatient (RCR) | payer MEDICARE, SELFPAY ==
[2023-11-30] VITALS (10 sets, daily range): BP systolic 134–161; BP diastolic 65–85; PULSE 71–83; RESP 16–18; TEMP 36.2–37.3; O2SAT 94–98
[2023-11-30 09:05] LABS: Hematocrit 27.1 % (42.0-52.0)
[2023-11-30] MEDS: ACETAMINOPHEN 325 MG TABLET 650 MG PO (09:12)
[2023-11-30] MEDS: diphenhydrAMINE HCl CAP 25 MG CAPSULE PO (09:12)
[2023-11-30] MEDS: SODIUM CHLORIDE 0.9% IV 250 ML 30 ML IV CONT (09:23)
[2023-11-30] MEDS: FUROSEMIDE INJ 40 MG/4 ML VIAL 20 MG IV PUSH (12:19)
== END 2024-02-28 23:59 | disposition home or self-care (01) ==
LOC: ANHCPCTRAN 07:45
PROVIDERS: PCP Family Medicine; Visit Provider Internal Medicine Hematology & Oncology
DX: C61 Malignant neoplasm of prostate (principal); C79.51 Secondary malignant neoplasm of bone
CPT/HCPCS: 36415; 36430; 85014; 85018; 86850; 86900; 86901; 86923; 96374; A9270; J1940; J7050; P9016

== ENCOUNTER 2023-12-07 13:11 | Outpatient (CLI) | payer MEDICARE, SELFPAY ==
--- NOTE | ~2023-12-07 | PE_ITS ---
EXAMINATION: PET_PETPSMAST_PT DATE: 12/07/2023 15:24 INDICATION: Prostate cancer TECHNIQUE: 2.75 mCi of Locametz Ga-68([id number]) was administered i.v. Low dose computed kat graphy (CT) images were acquired from the base of the brain to the base of the brain to the proximal thighs for attenuation correction and anatomic localization. Positron emission tomography (PET) image s were acquired in the same distribution beginning 68 minutes after injection. Images including fused PET/CT images were reconstructed in axial, coronal, and sagittal planes. Automated exposure control technique was employed. The dose-length product was 864.95mGy-cm. COMPARISON: CT abdomen and pelvis dated 10/15/2023 and PET/CT dated 08/24/2023 FINDINGS: Musculoskeletal: There are innumerable the SMA avid lesions throughout the axial and appendicular skeleton in places b ecoming essentially confluent. There are during degrees of associated sclerosis and consistent with w idespread metastatic prostate cancer. Head/neck: Typical pattern of symmetric physiologic increased activity in the lacrimal, parotid and submandibula r glands as well as along the mucosa of the nasal and oral cavities, pharynx and hypopharynx. No path ologically enlarged cervical lymphadenopathy or suspicious foci of increased uptake in the visualized head or neck. Chest: A couple small calcified pulmonary nodules in the bilateral upper lobes consistent with old granuloma tous disease. Mild dependent atelectasis in both lungs. No suspicious pulmonary nodules, pneumonia, p ulmonary edema or pleural effusion. Heart size is normal. Small amount of atherosclerotic coronary ar mati calcific lesion. Aortic valve calcific lesion. No pericardial effusion. Thoracic aorta is normal in caliber. No pathologically enlarged thoracic lymphadenopathy. Abdomen/pelvis/proximal thighs: Physiologic renal accumulation and excretion of activity in the right kidney and in the bladder. No e vident PSMA activity at the left kidney consistent with likely severely decreased left renal function secondary to obstruction with moderate left hydroureteronephrosis. There is no evident obstructing s tone or PSMA avid mass at the transition point in the mid left ureter which is at the level of L5-S1 with the more distal left ureter appearing decompressed. No evident PSMA activity at the prostate whi ch measures 2.0 x 2.7 cm. Normal degree and slightly heterogenous pattern of increased uptake through out the liver and spleen without radiologic correlate or dominant PSMA avid lesion. The gallbladder, pancreas and bilateral adrenal glands are normal. Mild uptake scattered throughout the bowels with ty pical duodenal and proximal jejunal predominance and without radiologic correlate, also likely physio logic. No other abnormal foci of increased uptake or pathologically enlarged lymphadenopathy in the a bdomen, pelvis or proximal thighs. Moderate sized fat-containing left inguinal hernia. IMPRESSION: 1. Widespread PSMA avid and during the sclerotic bone lesions throughout the axial and appendicular s [place] consistent with widespread metastatic prostate cancer. No evident residual malignancy at the prostate or other evident nonosseous metastatic disease. 2. No discernible excreted PSMA activity at the left kidney likely secondary to the moderate left hyd ronephrosis. No evident obstructing stone or PSMA avid mass identified at the transition point at the distal left ureter. This raises some concern for urothelial carcinoma and would recommend urologic c onsultation and further evaluation with either ureteroscopy or CT urogram. Reviewed, dictated and finalized at location A. IMPRESSION: 1. Widespread PSMA avid and during the sclerotic bone lesions throughout the ax ial and appendicular ske
== END 2023-12-07 13:12 | disposition home or self-care (01) ==
PROVIDERS: PCP Family Medicine; Visit Provider Internal Medicine Hematology & Oncology
DX: C61 Malignant neoplasm of prostate (principal); C79.51 Secondary malignant neoplasm of bone
CPT/HCPCS: 78815; A9596

== ENCOUNTER 2024-02-19 16:26 | Emergency (ER) | payer MEDICARE, SELFPAY ==
--- NOTE | ~2024-02-19 | CT_ITS ---
EXAMINATION: CT abdomen pelvis w con DATE: 02/19/2024 18:41 INDICATION: Right lower quadrant abdominal pain and worsening right upper quadrant abdominal pain. TECHNIQUE: Computed tomography (CT) of the abdomen and pelvis was performed with 100 mL Omnipaque-350 intravenous contrast. Automated exposure control and iterative reconstruction technique were employe d. The dose-length product was 353.13 mGy-cm. COMPARISON: 10/15/2023, 08/24/2023, 05/15/2023 and 07/02/2021 FINDINGS: Respiratory motion and mild atelectasis at the bilateral lung bases. Heart size is normal. No pericar dial or pleural effusion. Liver, gallbladder, spleen and bilateral adrenal glands are normal. 12 x 7 mm macroscopic fat attenuation likely lipoma at the uncinate process of the pancreas which without si gnificant interval change since 07/02/2021. A couple small low-attenuation right renal cysts the larg er measuring 8mm. Chronic progressive, now moderate severity cortical atrophy at the left kidney with persistent delayed nephrogram and moderate left hydroureteronephrosis extending to a 2.2 x 2.3 cm ma ss along the proximal left common iliac artery likely representing metastatic lymphadenopathy with ex trinsic compression with no mucosal irregularity to suggest urothelial carcinoma on a prior retrograd e pyelogram dated 12/08/2021. Large amount of stool in the proximal colon with small amount scattered throughout the more distal colon. Small bowel and appendix are normal. Status post prostatectomy. Ahmet dder is otherwise unremarkable. Small bilateral fat-containing inguinal hernias. No free intraperiton eal gas or fluid. No pathologically enlarged abdominal or pelvic lymphadenopathy. No significant wilkes ge in multiple densely sclerotic bone lesions. There does however appear to be in subtle interval pro gression in less well-defined patchy sclerosis scattered throughout the bones consistent with progres luis angel of widespread metastatic disease. IMPRESSION: 1. Widespread sclerotic lesions of bone and some progression in the less well-defined patchy sclerosi s consistent with progression of metastatic disease. 2. Chronic moderate left hydronephrosis with worsening secondary moderate renal atrophy which appears secondary to obstruction at the mid left ureter where there is an unchanged 2.3 x 2.2 cm mass along the proximal left external iliac artery suspicious for stable metastatic disease. 3. Small bilateral fat-containing inguinal hernias. Reviewed, dictated and finalized at location A. IMPRESSION: 1. Widespread sclerotic lesions of bone and some progression in the less well-d efined patchy sclerosis consistent with progression of metastatic disease. 2. Chronic moderate left hydronephrosis with worsening secondary moderate renal atrophy which appears secondary to obstruction at the mid left ureter where th ere is an unchanged 2.3 x 2.2 cm mass along the proximal left external iliac ar mati suspicious for stable metastatic disease. 3. Small bilateral fat-containing inguinal hernias.
[2024-02-19 16:27] VITALS: BP 145/53; PULSE 68; RESP 16; TEMP 37; O2SAT 100
[2024-02-19 16:44] LABS: Basophils Absolute Auto 0.1 K/mm3 (0.0-0.1); Basophils Percent Auto 0.9 % (0.2-1.2); Eosinophils Absolute Auto 0.2 K/mm3 (0-0.3); Eosinophils Percent Auto 3.1 % (0-4.4); Hematocrit 28.2 % (42.0-52.0); Hemoglobin 8.8 g/dL (14.0-18.0); Immature Granulocyte Absolute 0.27 K/mm3 (0.00-0.031); Lymphocytes Absolute Auto 2.53 K/mm3 (0.9-3.2); Lymphocytes Percent Auto 37.6 % (18.3-44.2); Mean Corpuscular HGB Conc 31.2 g/dl (32-36); Mean Corpuscular Hemoglobin 27.8 pg (26-34); Mean Corpuscular Volume 89.2 fl (80-100); Monocytes Absolute Auto 0.7 K/mm3 (0.1-0.6); Neutrophils Percent Auto 44.4 % (45.5-73.1); Nucleated Red Blood Cells Perc 2.7 % (0.0-0.2); Platelet Count Result 259 k/mm3 (150-375); Red Blood Count 3.16 M/mm3 (4.6-6.20); Red Cell Distribution Width 23.1 % (11.5-14.5); White Blood Count 6.7 K/mm3 (4.5-10.0)
[2024-02-19 16:56] LABS: Anisocytosis 1+; Ovalocytes 1+; Platelet Estimate Adequate (Adequate); Schistocytes None Seen
[2024-02-19 17:05] LABS: Alanine Aminotransferase 29 U/L (6-50); Albumin Level 4.1 g/dL (3.5-5.1); Alkaline Phosphatase 441 U/L (38-126); Anion Gap 12 mmol/L (4-12); Aspartate Amino Transferase 42 U/L (17-59); Bilirubin,Total 0.3 mg/dL (0.2-1.3); Blood Urea Nitrogen 28 mg/dL (9-20); Calcium 7.8 mg/dL (8.4-10.2); Carbon Dioxide 21 mmol/L (22-30); Chloride 105 mmol/L (98-107); Estimated CRCL calculation 27 ml/min; Estimated Glomerular Filt Rate 34; Glucose 126 mg/dL (65-110); Lipase 312 U/L (23-300); Potassium 4.7 mmol/L (3.4-5.0); Sodium 138 mmol/L (137-145)
[2024-02-19 17:31] LABS: Appearance Urine Clear (Clear); Bacteria Urine None Seen /hpf; Bilirubin Urine Negative (Negative); Blood Urine Negative (Negative); Color Urine Yellow (Yellow); Glucose Urine UA Negative (Negative); Ketones Urine Trace mg/dL (Negative); Leukocyte Esterase Ur Negative LEU/UL (Negative); Nitrate Urine Negative (Negative); Non Pathogenic Casts 0-2; Protein Urine 1+ mg/dL (Negative); RBC Urine 0-2 /hpf (0-2); Specific Grav Ur 1.027 (1.001-1.035); Squamous Epithelial Cell Urine None Seen /hpf (Few); WBC Urine 0-5 /hpf (0-3); pH Urine 6.5 (5.0-9.0)
[2024-02-19 17:32] LABS: Add Urine Microscopic? YES
--- NOTE | 2024-02-19 17:38 | ED.ABDPAIN ---
HPI - Abdominal Pain General Chief Complaint: Abdominal Pain <LYNDA Diaz Last Filed: 02/19/24 17:48> Stated Complaint: RUQ Abd pain <LYNDA Diaz Last Filed: 02/19/24 17:48> Time Seen by Provider: 02/19/24 17:38 <LYNDA Diaz Last Filed: 02/19/24 17:48> Focused HPI: Patient is a 78 male who presents to the ED with c/o R lower abdominal pain. 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 Patient reports having pain in his R lower abdomen for the past 3 weeks. Has been taking Oxycodone for the pain which helped with the pain at first, but is no longer providing relief. He last took this at 340 pm today w/o improvement. Reports subjective fevers, denies diarrhea, constipation, N/V, dysuria, hematuria. Has never had pain like this before. Patient is on Warfarin but is unsure why. GENERAL: Uncomfortable-appearing, well-nourished, and in no acute distress. HEAD: Normocephalic, atraumatic. CHEST: Clear to auscultation. ?No respiratory distress. HEART: Regular rate and rhythm.? ABD: Focal tenderness throughout R lower abdomen, no rebound. Normoactive BS. NEURO: ?Alert and oriented x3. Patient screened in triage and initial orders placed.? ?Additional care and disposition to be based upon?diagnostic testing and treatment. <LYNDA Diaz Last Filed: 02/19/24 17:48> Source: patient <LYNDA Diaz Last Filed: 02/19/24 17:48> Mode of arrival: ambulatory <LYNDA Diaz Last Filed: 02/19/24 17:48> Limitations: no limitations and language barrier <LYNDA Diaz Last Filed: 02/19/24 17:48> History of Present Illness HPI narrative: 78 y/o Dutch speaking Male presents with his at bedside for right lower quadrant abdominal pain for 3 weeks. Patient has a history of metastatic prostate cancer, prostatectomy, type 2 diabetes, hyperlipidemia, paroxysmal AFib for which he takes Coumadin, CAD, GERD, chronic anemia, chronic pain. patient states he has had pain to the right lower quadrant for approximately 3 weeks. he denies any aggravating or alleviating factors, dysuria or hematuria, nausea vomiting, fevers. Endorses prior prostatectomy approximately 1 year ago. Last bowel movement was today and normal. He does state he feels as though he is not emptying his colon fully when he has a BM. Patient is a poor historian and majority of history was obtained through chart review. It seems that he is following with [facility] oncology. His last appointment was 02/07/2024. No reviewed states that the patient is taking Docetaxel and enzalutamide. the patient states he is prescribed oxycodone for his chronic pain, however has been taking his oxycodone without improvement. states he used to take Stan[place] and prefers Stanhope over oxycodone. He is requesting Stanhope today. <Rocio Palafox PA-C - Last Filed: 02/20/24 01:28> Related Data Home Medications: Home Medications Medication Instructions Recorded Confirmed atorvastatin 20 mg tablet 20 mg PO DAILY 06/04/19 12/06/23 flecainide 100 mg tablet 100 mg PO Q12H 06/04/19 12/06/23 prednisone 5 mg tablet 10 mg PO BID 11/07/21 12/06/23 metoprolol succinate 25 mg 25 mg PO DAILY 08/17/22 12/06/23 tablet,extended release 24 hr losartan 50 mg tablet 50 mg PO DAILY 08/07/23 12/06/23 warfarin 3 mg tablet 3 mg PO DAILY 11/08/23 12/06/23 <LYNDA Diaz Last Filed: 02/19/24 17:48> Allergies/Adverse Reactions: Allergies Allergy/AdvReac Type Severity Reaction Status Date / Time No Known Allergies Allergy Verified 12/06/23 13:30 <LYNDA Diaz Last Filed: 02/19/24 17:48> Review of Systems Review of Systems: All systems reviewed & are unremarkable except as noted in HPI and below <LYNDA Blount Last Filed: 02/20/24 01:28> [facility] Past Medical History Medical History: Medical History (Revi
[2024-02-19] MEDS: HYDROcodone/acetaminophen (*CRX) 5-325 MG TABLET 1 TAB PO (17:50)
[2024-02-19 18:10] LABS: Prothrombin Time 14.1 Seconds (11.1-14.7)
[2024-02-19 18:11] LABS: Partial Thromboplastin Time 26.1 Seconds (22.3-36.8)
--- NOTE | 2024-02-19 19:02 | PC.NURSE ---
Assessment completed with [place] with script editor Helen #[id number]
[2024-02-19] MEDS: SODIUM CHLORIDE 0.9% IV 1,000 ML 999 ML IV CONT (20:05)
== END 2024-02-19 21:48 | disposition home or self-care (01) ==
PROVIDERS: Physician Assistant; Student in an Organized Health Care Education/Training Program; Emergency Provider Physician Assistant
DX: R10.31 Right lower quadrant pain (principal); C61 Malignant neoplasm of prostate; C79.51 Secondary malignant neoplasm of bone; K59.00 Constipation, unspecified; I48.0 Paroxysmal atrial fibrillation; I25.10 Atherosclerotic heart disease of native coronary artery without angina pectoris; I10 Essential (primary) hypertension; E78.2 Mixed hyperlipidemia; E11.9 Type 2 diabetes mellitus without complications; D50.9 Iron deficiency anemia, unspecified; G47.33 Obstructive sleep apnea (adult) (pediatric); K21.9 Gastro-esophageal reflux disease without esophagitis; F41.9 Anxiety disorder, unspecified; Z86.16 Personal history of COVID-19; Z90.79 Acquired absence of other genital organ(s); Z79.01 Long term (current) use of anticoagulants; Z79.52 Long term (current) use of systemic steroids; Z79.899 Other long term (current) drug therapy; Z79.84 Long term (current) use of oral hypoglycemic drugs; K40.20 Bilateral inguinal hernia, without obstruction or gangrene, not specified as recurrent; N13.30 Unspecified hydronephrosis; N26.1 Atrophy of kidney (terminal)
CPT/HCPCS: 36415; 74177; 80053; 81001; 83690; 85025; 85610; 85730; 96360; 96361; 99284; A9270; J7030; Q9967

== ENCOUNTER 2024-02-28 12:03 | Inpatient (IN) | payer MEDICARE, SELFPAY ==
[2024-02-28] VITALS (29 sets, daily range): BP systolic 123–144; BP diastolic 60–86; PULSE 71–89; RESP 16–23; TEMP 36.8; O2SAT 97–100
--- NOTE | ~2024-02-28 | CT_ITS ---
EXAMINATION: CT abdomen pelvis w con DATE: 02/28/2024 15:57 INDICATION: Right lower quadrant abdominal pain. TECHNIQUE: Computed tomography (CT) of the abdomen and pelvis was performed with 100 mL Omnipaque 350 intravenous contrast. Automated exposure control and iterative reconstruction technique were employe d. The dose-length product was 344.59 mGy-cm. COMPARISON: CT abdomen and pelvis 02/19/2024 FINDINGS: The visualized portions of lung bases demonstrate mild atelectasis. No pleural effusion. Th e heart size is normal. No pericardial effusion. The liver, gallbladder, spleen, pancreas, and adrena l glands are normal. There is a 5 mm cyst in right kidney. There is moderate atrophy of left kidney. There is severe left hydronephrosis and hydroureter to the level of left para-aortic lymphadenopathy measuring 2.5 x 2.3 cm. There are bilateral inguinal hernias containing fat. There are no dilated loo ps of bowel. The appendix is normal. There are widespread sclerotic lesions involving most bones, con sistent with metastatic disease. IMPRESSION: 1. Left para-aortic lymphadenopathy and widespread bone lesions, consistent with metastatic disease. 2. Severe left hydronephrosis and hydroureter to the level of the left para-aortic lymphadenopathy. M oderate left kidney atrophy. 3. Bilateral inguinal hernias containing fat. Reviewed, dictated and finalized at location A. IMPRESSION: 1. Left para-aortic lymphadenopathy and widespread bone lesions, consistent wit h metastatic disease. 2. Severe left hydronephrosis and hydroureter to the level of the left para-aor tic lymphadenopathy. Moderate left kidney atrophy. 3. Bilateral inguinal hernias containing fat.
--- NOTE | 2024-02-28 12:11 | ECG_ITS ---
Test Date: 2024-02-28 12:14:20 Measurements Intervals [place] Rate: 72 P: -14 IN: 167 QRS: 11 QRSD: 94 T: 49 QT: 425 QTc: 467 Interpretive Statements SINUS RHYTHM NORMAL ELECTROCARDIOGRAM No previous ECG available for comparison Electronically Signed On 02-29-2024 13:32:35 CDT by Ori Alonso M.D.
[2024-02-28 12:33] LABS: Basophils Absolute Auto 0.2 K/mm3 (0.0-0.1); Basophils Percent Auto 2.1 % (0.2-1.2); Eosinophils Absolute Auto 0.2 K/mm3 (0-0.3); Eosinophils Percent Auto 1.8 % (0-4.4); Hematocrit 30.2 % (42.0-52.0); Immature Granulocyte Absolute 0.66 K/mm3 (0.00-0.031); Immature Granulocyte Percent A 7.6 % (0-0.5); Lymphocytes Absolute Auto 2.26 K/mm3 (0.9-3.2); Mean Corpuscular HGB Conc 29.8 g/dl (32-36); Mean Corpuscular Hemoglobin 27.4 pg (26-34); Mean Corpuscular Volume 91.8 fl (80-100); Mean Platelet Volume 8.7 fl (7.4-10.4); Monocytes Absolute Auto 0.8 K/mm3 (0.1-0.6); Monocytes Percent Auto 8.9 % (2.6-8.5); Neutrophils Absolute Auto 4.7 K/mm3 (1.3-6.7); Neutrophils Percent Auto 53.6 % (45.5-73.1); Nucleated Red Blood Cells Perc 4.7 % (0.0-0.2); Platelet Count Result 285 k/mm3 (150-375); Red Blood Count 3.29 M/mm3 (4.6-6.20); Red Cell Distribution Width 24.9 % (11.5-14.5); White Blood Count 8.7 K/mm3 (4.5-10.0)
[2024-02-28 12:50] LABS: Alanine Aminotransferase 20 U/L (6-50); Albumin Level 4.2 g/dL (3.5-5.1); Alkaline Phosphatase 545 U/L (38-126); Anion Gap 12 mmol/L (4-12); Aspartate Amino Transferase 27 U/L (17-59); Bilirubin,Total 0.4 mg/dL (0.2-1.3); Blood Urea Nitrogen 18 mg/dL (9-20); Calcium 8.3 mg/dL (8.4-10.2); Carbon Dioxide 18 mmol/L (22-30); Chloride 103 mmol/L (98-107); Estimated CRCL calculation 50 ml/min; Estimated Glomerular Filt Rate > 60; Glucose 107 mg/dL (65-110); Potassium 5.6 mmol/L (3.4-5.0); Sodium 133 mmol/L (137-145)
[2024-02-28 12:57] LABS: Anisocytosis 2+; Hypochromasia 1+; Macrocytosis 1+ (NORMAL); Ovalocytes 1+; Platelet Estimate Adequate (Adequate); Poikilocytosis 1+; Polychromasia 2+; Target Cells 1+
[2024-02-28 12:58] LABS: Acanthocytes 1+; Schistocytes None Seen
--- NOTE | 2024-02-28 13:38 | ED.RECABL ---
HPI - Recheck/Abnormal Lab/Rx General Chief Complaint: Recheck/Abnormal Lab/Rx Stated Complaint: high potassium Time Seen by Provider: 02/28/24 12:41 History of Present Illness HPI narrative: This is a 78-year-old male with a past medical history including prostate cancer currently undergoing chemotherapy infusions every week. Patient was referred to the emergency department today after a pre chemotherapy infusion laboratory studies showed a potassium of 6.2. Patient has a history of hyperkalemia in the past and is on a low-potassium diet. Patient has no known history of CKD or any dialysis. He has been on chemotherapy for several months without any complications. Presently he is complaining of some minor abdominal discomfort but otherwise asymptomatic and denies any nausea, vomiting, palpitations, chest pain, shortness a breath. Patient is primarily Greek-speaking. Patient also has a secondary complaint of chronic constipation which he has been dealing with for several months. He has been trying senna, docusate, MiraLax at home without any success. He has small bowel movements. Denies any abdominal distension, diarrhea, fevers, nausea vomiting. He has tried enemas at home without much success either. Patient was told that his hyperkalemia could be related to his constipation as he is not excreting in his bowels. Son at bedside provides additional collateral formation. Related Data Home Medications Medication Instructions Recorded Confirmed atorvastatin 20 mg tablet 20 mg PO DAILY 06/04/19 02/21/24 flecainide 100 mg tablet 100 mg PO Q12H 06/04/19 02/21/24 prednisone 5 mg tablet 10 mg PO BID 11/07/21 02/21/24 metoprolol succinate 25 mg 25 mg PO HS 08/17/22 02/28/24 tablet,extended release 24 hr losartan 50 mg tablet 50 mg PO DAILY 08/07/23 02/21/24 warfarin 3 mg tablet 3 mg PO DAILY 11/08/23 02/21/24 metformin 500 mg tablet,extended 500 mg PO DAILY 02/28/24 02/28/24 release 24 hr Allergies Allergy/AdvReac Type Severity Reaction Status Date / Time No Known Allergies Allergy Verified 02/28/24 19:05 Review of Systems Review of Systems: As reviewed above in the HPI [facility] Past Medical History Medical History Acute on chronic blood loss anemia Anemia (11/02/20) hemoglobin 12.7 on 11/02/2020. Hemoglobin 12.5 on 11/10/2022. At high risk for falls Atrial fibrillation Benign paroxysmal positional vertigo due to bilateral vestibular disorder Bone metastases CAD (coronary artery disease), [place] coronary artery Chronic anxiety Chronic low back pain X-ray 07/19/2022 with degenerative changes of the lumbar spine with diffuse sclerotic metastatic lesions. Chronic pain of left knee COVID-19 virus detected (~02/16/20) Dermatitis of face (~09/23/22) Eczema Elevated PSA, between 10 and less than 20 ng/ml (11/02/20) PSA 16.3 on 11/02/2020 Eosinophilia (~11/02/20) eosinophil count 1248 on 11/02/2020 Essential hypertension Folliculitis Hematuria History of prostate cancer Iron deficiency anemia, unspecified total iron 31 with 7% saturation and ferritin 44 with hemoglobin 12.8 on 01/18/2021 Keloid scar Mixed hyperlipidemia Nocturia Obstructive sleep apnea on CPAP does not use CPAP Overweight (BMI 25.0-29.9) Paroxysmal atrial fibrillation Postoperative ileus Prostate cancer PSA 0.5 on 11/10/2022. PSA 4.7 on 03/29/2023. PSA 6.1 on 05/01/2023. Prostate cancer metastatic to bone Rectal bleeding Rib pain on left side (~07/09/22) Diffuse metastatic lesions of the spine, ribs, scapula with possible non displaced anterior lateral 9th rib fracture on x-ray 07/19/2022. Right inguinal pain Right sided abdominal pain Tinea cruris Tobacco use disorder, continuous 5 or 6 cigarettes daily Tubular adenoma of colon (09/19/23) tubular adenoma sigmoid colon 10/18/2023. Type 2 diabetes mellitus without complication, without long-term current use of insulin Glucose 173 o
[2024-02-28] MEDS: LACTATED RINGERS 1,000 ML 999 ML IV CONT ×2 (13:45→15:14)
[2024-02-28] MEDS: SODIUM BICARBONATE 8.4% 50 MEQ/50 ML SYRINGE IV PUSH (13:46)
[2024-02-28] MEDS: DEXTROSE 50% 25 GM/50 ML SYRINGE IV PUSH (13:46)
[2024-02-28] MEDS: INSULIN HUMAN REGULAR (*BKC) 100 UNITS/ML IV PUSH (13:46)
[2024-02-28] MEDS: SODIUM ZIRCONIUM CYCLOSILICATE 10 GM POWD.PACK PO (13:46)
[2024-02-28 14:40] LABS: Lactic Acid Reflex 5.4 mmol/L (0.7-2.0)
[2024-02-28 14:50] LABS: Glucose Point of Care 151 mg/dl (65-105)
[2024-02-28 15:21] LABS: Anion Gap 14 mmol/L (4-12); Blood Urea Nitrogen 18 mg/dL (9-20); Calcium 8.4 mg/dL (8.4-10.2); Carbon Dioxide 17 mmol/L (22-30); Chloride 103 mmol/L (98-107); Estimated CRCL calculation 46 ml/min; Estimated Glomerular Filt Rate > 60; Glucose 144 mg/dL (65-110); Potassium 5.1 mmol/L (3.4-5.0); Sodium 134 mmol/L (137-145)
[2024-02-28 15:48] LABS: Lactic Acid Reflex 5.9 mmol/L (0.7-2.0)
[2024-02-28 16:53] LABS: Lactic Acid Reflex 5.7 mmol/L (0.7-2.0)
[2024-02-28 16:54] LABS: Add Urine Microscopic? NO; Appearance Urine Clear (Clear); Bilirubin Urine Negative (Negative); Blood Urine Negative (Negative); Color Urine Yellow (Yellow); Glucose Urine UA Negative (Negative); Ketones Urine Negative (Negative); Leukocyte Esterase Ur Negative LEU/UL (Negative); Nitrate Urine Negative (Negative); Protein Urine Negative (Negative); Specific Grav Ur 1.009 (1.001-1.035); Urobilinogen Urine 0.2 mg/dL (<2.0)
[2024-02-28 17:22] LABS: Reflex Lactic Acid Yes or No Add Lactic
--- NOTE | 2024-02-28 17:58 | PM.IMHP ---
H&P: HPI History of Present Illness Date/Time: 02/28/24 17:58 Chief Complaint: Abnormal Labs Narrative: 78 y/o M presents here with elevated potassium with PMH of chronic anemia, AFib, brown paroxysmal positional vertigo, prostate cancer with metastasis to bone (undergoing chemo), CAD, hypertension, and diabetes. The patient presents here from home via personal vehicle for further evaluation of high potassium levels. Patient was scheduled to have chemotherapy today at [facility] ([facility]) where he receives his oncology care for metastatic prostate cancer. However, pre treatment labs showed a potassium of 6.2. Patient has history of hyperkalemia and is on a strict low-potassium diet which he reports compliance to. Per son at the bedside, he has actually been improving over the last month. Only issue that he currently reports is constipation. LBM was today. Denies urinary symptoms, palpitations, tachycardia, or chest pain. He is reporting right lower quadrant pain when it is pressed. Initial VS at presentation: 98.2? F, HR 71, RR 19, 133/61, and 97% on RA. ED workup showed: No leukocytosis, hemoglobin 9.0 (previously 8.8 on 02/19/2024), potassium 5.6, sodium 133, creatinine 1.0 and GFR >60, lactic 5.4, and UA unremarkable. CT of the abdomen/pelvis showed left para aortic lymphadenopathy in widespread bone lesions consistent with metastatic disease, severe left hydronephrosis and hydroureter to the level the left para-aortic lymphadenopathy, moderate left kidney atrophy, and bilateral inguinal hernias containing fat. Review of Systems Review of Systems: All systems reviewed & are unremarkable except as noted in HPI and below [facility] Past Medical History Medical History Acute on chronic blood loss anemia Anemia (11/02/20) hemoglobin 12.7 on 11/02/2020. Hemoglobin 12.5 on 11/10/2022. At high risk for falls Atrial fibrillation Benign paroxysmal positional vertigo due to bilateral vestibular disorder Bone metastases CAD (coronary artery disease), [place] coronary artery Chronic anxiety Chronic low back pain X-ray 07/19/2022 with degenerative changes of the lumbar spine with diffuse sclerotic metastatic lesions. Chronic pain of left knee COVID-19 virus detected (~02/16/20) Dermatitis of face (~09/23/22) Eczema Elevated PSA, between 10 and less than 20 ng/ml (11/02/20) PSA 16.3 on 11/02/2020 Eosinophilia (~11/02/20) eosinophil count 1248 on 11/02/2020 Essential hypertension Folliculitis Hematuria History of prostate cancer Iron deficiency anemia, unspecified total iron 31 with 7% saturation and ferritin 44 with hemoglobin 12.8 on 01/18/2021 Keloid scar Mixed hyperlipidemia Nocturia Obstructive sleep apnea on CPAP does not use CPAP Overweight (BMI 25.0-29.9) Paroxysmal atrial fibrillation Postoperative ileus Prostate cancer PSA 0.5 on 11/10/2022. PSA 4.7 on 03/29/2023. PSA 6.1 on 05/01/2023. Prostate cancer metastatic to bone Rectal bleeding Rib pain on left side (~07/09/22) Diffuse metastatic lesions of the spine, ribs, scapula with possible non displaced anterior lateral 9th rib fracture on x-ray 07/19/2022. Right inguinal pain Right sided abdominal pain Tinea cruris Tobacco use disorder, continuous 5 or 6 cigarettes daily Tubular adenoma of colon (09/19/23) tubular adenoma sigmoid colon 10/18/2023. Type 2 diabetes mellitus without complication, without long-term current use of insulin Glucose 173 on 11/10/2022. Family History Family History Mother Family history of malignant neoplasm Father Family history of malignant neoplasm Social History Social History Smoking packs per day: 0.2 Smoking cigarettes per day: 4.0 Years smoked: 60 Smoking pack-years: 12.00 Smoking status: Former smoker
[2024-02-28] MEDS: LACTATED RINGERS 1,000 ML 125 ML IV CONT (18:53)
[2024-02-28 18:58] LABS: Lactic Acid 5.4 mmol/L (0.7-2.0)
--- NOTE | 2024-02-28 19:03 | ADMGEN ---
This patient, Ej Steen, was admitted to 3 Medical Room 346-01. Patient/family oriented to hospital policies and general routines including ID bracelet, bed and alarms, visiting hours, pain management, procedures, bathroom and other care routines, personal items, smoking policy, room service/diet, and visiting hours. Information on how to activate the Rapid Response Team has been discussed. Patient/Family are encouraged to report perceived risks to care and to ask questions if they do not understand what they are told or what they should do. Recruit Instructor service utilized.
[2024-02-28] MEDS: SODIUM ZIRCONIUM CYCLOSILICATE 5 GM POWD.PACK PO (19:04)
[2024-02-28 20:03] LABS: Lactic Acid Reflex 4.3 mmol/L (0.7-2.0)
[2024-02-28] MEDS: VANCOMYCIN 1,750 MG/NS 500 ML 1,750 MG/500 ML BAG 250 MG IVPB (20:23)
[2024-02-28 20:41] LABS: Glucose Point of Care 95 mg/dl (65-105)
[2024-02-28 20:43] LABS: Procalcitonin 0.1 ng/mL
[2024-02-29] VITALS: PULSE 78
[2024-02-29 04:00] VITALS: PULSE 74
[2024-02-29 05:36] LABS: Basophils Absolute Auto 0.1 K/mm3 (0.0-0.1); Basophils Percent Auto 1.1 % (0.2-1.2); Eosinophils Absolute Auto 0.1 K/mm3 (0-0.3); Eosinophils Percent Auto 1.8 % (0-4.4); Hematocrit 25.3 % (42.0-52.0); Hemoglobin 7.7 g/dL (14.0-18.0); Immature Granulocyte Absolute 0.39 K/mm3 (0.00-0.031); Immature Granulocyte Percent A 5.5 % (0-0.5); Lymphocytes Absolute Auto 2.14 K/mm3 (0.9-3.2); Lymphocytes Percent Auto 30.3 % (18.3-44.2); Mean Corpuscular HGB Conc 30.4 g/dl (32-36); Mean Platelet Volume 9.2 fl (7.4-10.4); Monocytes Percent Auto 14.7 % (2.6-8.5); Neutrophils Absolute Auto 3.3 K/mm3 (1.3-6.7); Neutrophils Percent Auto 46.6 % (45.5-73.1); Nucleated Red Blood Cells Perc 4.1 % (0.0-0.2); Platelet Count Result 238 k/mm3 (150-375); Red Blood Count 2.75 M/mm3 (4.6-6.20); Red Cell Distribution Width 25.3 % (11.5-14.5); White Blood Count 7.1 K/mm3 (4.5-10.0)
[2024-02-29 05:55] LABS: Alanine Aminotransferase 15 U/L (6-50); Albumin Level 3.2 g/dL (3.5-5.1); Alkaline Phosphatase 442 U/L (38-126); Anion Gap 11 mmol/L (4-12); Aspartate Amino Transferase 20 U/L (17-59); Bilirubin,Total 0.3 mg/dL (0.2-1.3); Blood Urea Nitrogen 18 mg/dL (9-20); Calcium 7.8 mg/dL (8.4-10.2); Carbon Dioxide 19 mmol/L (22-30); Chloride 106 mmol/L (98-107); Estimated CRCL calculation 56 ml/min; Estimated Glomerular Filt Rate > 60; Glucose 77 mg/dL (65-110); Potassium 4.3 mmol/L (3.4-5.0); Sodium 136 mmol/L (137-145)
[2024-02-29 05:57] LABS: Lactic Acid Reflex 2.9 mmol/L (0.7-2.0)
[2024-02-29 06:00] VITALS: BP 139/61; PULSE 73; RESP 20; TEMP 36.4; O2SAT 96
[2024-02-29 06:27] LABS: Anisocytosis 2+; Hypochromasia 1+; Platelet Estimate Adequate (Adequate); Schistocytes None Seen; Target Cells 1+
[2024-02-29 08:31] LABS: Reflex Lactic Acid Yes or No Add Lactic
[2024-02-29 08:44] LABS: Glucose Point of Care 81 mg/dl (65-105)
--- NOTE | 2024-02-29 09:32 | WPDURCON ---
Assessment and Plan Assessment and plan (1) Prostate cancer: Code(s): C61 - Malignant neoplasm of prostate Status: Acute (2) Hydronephrosis: Code(s): N13.30 - Unspecified hydronephrosis Status: Acute (3) Acute hyperkalemia: Code(s): E87.5 - Hyperkalemia Status: Acute Plan Discussed recommendations for bilateral ureteral stent placement. Patient and family decline and would like to return home. He will continue to follow up with oncology at [facility]. Potassium has normalized. Urology Consult Note HPI Date Seen: 02/29/24 Requesting Physician: Ariana Morrison APRN Primary Care Provider: Saw Ga MD Consult Narrative Narrative: Ej Steen is a 78 year old male with a history of prostate cancer s/p prostatectomy in 2020 currently on chemotherapy presented to the ER on 824 for abnormal labs prior to his scheduled chemotherapy infusion. He was found have an elevated potassium of 6.2. On arrival to the ER, his vital signs were stable and he was afebrile, WBC was 8.7, potassium 5.1, creatinine 1.1, lactic elevated at 5.4 but has improved to 2.9 [address] IV fluids. A CT of his abdomen/pelvis showed left periaortic lymphadenopathy and widespread bone lesions consistent with metastatic disease as well as severe left hydronephrosis and hydroureter and moderate left kidney atrophy. There is also evidence of some right ureteral obstruction and hydronephrosis. At the time of my evaluation, the patient is feeling well and offers no concerns. The son is present at the bedside and reports frequent urination but otherwise has no concerns. Review of Systems Review of Systems: All systems reviewed & are unremarkable except as noted in HPI and below PMFSH Past Medical History Medical History Acute on chronic blood loss anemia Anemia (11/02/20) hemoglobin 12.7 on 11/02/2020. Hemoglobin 12.5 on 11/10/2022. At high risk for falls Atrial fibrillation Benign paroxysmal positional vertigo due to bilateral vestibular disorder Bone metastases CAD (coronary artery disease), [place] coronary artery Chronic anxiety Chronic low back pain X-ray 07/19/2022 with degenerative changes of the lumbar spine with diffuse sclerotic metastatic lesions. Chronic pain of left knee COVID-19 virus detected (~02/16/20) Dermatitis of face (~09/23/22) Eczema Elevated PSA, between 10 and less than 20 ng/ml (11/02/20) PSA 16.3 on 11/02/2020 Eosinophilia (~11/02/20) eosinophil count 1248 on 11/02/2020 Essential hypertension Folliculitis Hematuria History of prostate cancer Iron deficiency anemia, unspecified total iron 31 with 7% saturation and ferritin 44 with hemoglobin 12.8 on 01/18/2021 Keloid scar Mixed hyperlipidemia Nocturia Obstructive sleep apnea on CPAP does not use CPAP Overweight (BMI 25.0-29.9) Paroxysmal atrial fibrillation Postoperative ileus Prostate cancer PSA 0.5 on 11/10/2022. PSA 4.7 on 03/29/2023. PSA 6.1 on 05/01/2023. Prostate cancer metastatic to bone Rectal bleeding Rib pain on left side (~07/09/22) Diffuse metastatic lesions of the spine, ribs, scapula with possible non displaced anterior lateral 9th rib fracture on x-ray 07/19/2022. Right inguinal pain Right sided abdominal pain Tinea cruris Tobacco use disorder, continuous 5 or 6 cigarettes daily Tubular adenoma of colon (09/19/23) tubular adenoma sigmoid colon 10/18/2023. Type 2 diabetes mellitus without complication, without long-term current use of insulin Glucose 173 on 11/10/2022. Family History Family History Mother Family history of malignant neoplasm Father Family history of malignant neoplasm Social History Social History Smoking packs per day: 0.2 Smoking cigarettes per day: 4.0 Years smoked: 60 Smoking pack-year
[2024-02-29 11:39] VITALS: BMI 25.5
[2024-02-29 12:09] LABS: Glucose Point of Care 151 mg/dl (65-105)
--- NOTE | 2024-02-29 12:42 | PM.DS ---
DS: Admitting Diagnosis Discharge Date 02/29/24 Admitting Diagnosis Lactic acidemia Hydronephrosis Hyperkalemia Prostate cancer with Mets to bone Anemia Type 2 diabetes mellitus Hypertension DS: Summary Hospital Course Reason for hospitalization: Lactic acidemia Hydronephrosis Hyperkalemia Prostate cancer with Mets to bone Anemia Type 2 diabetes mellitus Hypertension Hospital Course: This is a 78-year-old male presented to the hospital for evaluation of abnormal labs. He was found to have a high potassium level of 6.2 workup in the hospital included a CT of the abdomen pelvis which showed left para aortic lymphadenopathy with widespread bone lesion consistent with metastatic disease, severe left hydronephrosis and hydroureter to the level of the left para-aortic lymphadenopathy, moderate left kidney atrophy, bilateral inguinal hernia containing fat. Initial labs showed a normal white blood cell count of 8.7, hemoglobin 9.0, potassium 5.1, bicarb 17, lactic acid 5.9> 4.3> 2.9> 3.0, alk-phos 545, procalcitonin was normal 0.1. UA was obtained and was negative. Blood cultures were obtained and are showing no growth on preliminary read. Patient was initially started on Rocephin and vancomycin with a Urology consult however family and patient are requesting no treatment for the hydronephrosis. Rocephin and vancomycin were discontinued. Lactic acidosis is due to his metastatic prostate cancer and is likely chronic however we will go ahead and hold his metformin upon discharge. He is stable for discharge today. He will need to follow up with his primary care physician in 1 week. Final diagnosis: Hydronephrosis, prostate cancer with Mets to the bone, lactic acidosis Status at Discharge Cognitive/behavioral status at discharge: Alert oriented x4, Ivorian-speaking only Functional status at discharge: independent ambulation Overall status at discharge: patient is progressing back to baseline Time Spent with Patient Time attestation: Total time spent providing and/or coordinating discharge services: Time spent: Greater than 30 minutes Exam Narrative: General: In no acute distress, well nourished Head: atraumatic, no encephalopathy Eyes: EOMI, PERRLA, sclera clear ENT: moist mucous membranes, nasal passages clear Neck: supple, no JVD, no adenopathy, trachea midline Cardiac: Normal S1 and S2. No murmur, gallops or friction rubs, peripheral pulses intact. Respiratory: Lungs clear to auscultation, no adventitious lung sounds Gastrointestinal: soft, non-distended, non-tender, normoactive bowel sounds. : voiding without difficulty. Extremities: moves all extremities well, no edema, good ROM, strength 5/5 Skin: clean, dry, intact. No wounds or lesions. Neuro: Alert and oriented x4, cranial nerves intact, no neuro deficits. Psych: normal mood, normal affect, interactive DS: Data Data Completed and Pending Completed studies during hospitalization: Abdomen pelvis CT Pending studies at discharge: Blood cultures Labs on day of discharge: Labs from last 24 hours 02/29/24 02/29/24 02/29/24 12:07 09:41 08:37 WBC RBC Hgb Hct MCV MCH MCHC RDW Plt Count MPV Immature Gran % (Auto) Neut % (Auto) Lymph % (Auto) Mclean % (Auto) Eos % (Auto) Baso % (Auto) Lymph # (Auto) [place]clean # (Auto) Eos # (Auto) Baso # (Auto) Abs Immat Gran (auto) Absolute Neuts (auto) Absolute Nucleated RBC Nucleated RBC % Platelet Estimate Polychromasia Hypochromasia Poikilocytosis Anisocytosis Macrocytosis Target Cells Ovalocytes Acanthocytes (Spur) Schistocytes Sodium Potassium Chloride Carbon Dioxide Anion Gap BUN Creatinine Estim Creat Clear Calc Estimated GFR Glucose POC Capillary Glucose 151 H 81 Lactic Acid 3.0 H Calcium Total Bilirubin AST ALT Alkaline Phosphatase Total Protein
== END 2024-02-29 13:15 | disposition home or self-care (01) | DRG 694 ==
LOC: ANHED 13:04 → ANH3MED 18:24
PROVIDERS: Emergency Medicine; Student in an Organized Health Care Education/Training Program; Admitting Provider General Practice; Emergency Provider Student in an Organized Health Care Education/Training Program; PCP Family Medicine; Visit Provider Nurse Practitioner Acute Care
DX: N13.39 Other hydronephrosis (principal); E87.20 Acidosis, unspecified; C77.2 Secondary and unspecified malignant neoplasm of intra-abdominal lymph nodes; C79.51 Secondary malignant neoplasm of bone; E87.5 Hyperkalemia; I10 Essential (primary) hypertension; I48.0 Paroxysmal atrial fibrillation; I25.10 Atherosclerotic heart disease of native coronary artery without angina pectoris; C61 Malignant neoplasm of prostate; D50.9 Iron deficiency anemia, unspecified; E11.9 Type 2 diabetes mellitus without complications; E78.5 Hyperlipidemia, unspecified; M54.50 Low back pain, unspecified; R35.1 Nocturia; G89.29 Other chronic pain; G47.33 Obstructive sleep apnea (adult) (pediatric); F41.8 Other specified anxiety disorders; H81.93 Unspecified disorder of vestibular function, bilateral; Z86.010 Personal history of colon polyps; Z79.01 Long term (current) use of anticoagulants; Z87.891 Personal history of nicotine dependence
CPT/HCPCS: 36415; 74177; 80048; 80053; 81003; 82948; 83605; 84145; 85025; 87040; 93005; 96361; 96374; 96375; 99285; A9270; J0696; J1815; J3370; J7120; Q9967

== ENCOUNTER 2024-03-27 10:52 | Emergency (ER) | payer MEDICARE, SELFPAY ==
[2024-03-27 10:59] VITALS: BP 118/46; PULSE 57; RESP 16; TEMP 37.1; O2SAT 100
--- NOTE | 2024-03-27 11:03 | ECG_ITS ---
Test Date: 2024-03-27 11:11:58 Measurements Intervals [place] Rate: 61 P: 64 [place]: 196 QRS: 12 QRSD: 88 T: 46 QT: 458 QTc: 462 Interpretive Statements SINUS RHYTHM BORDERLINE ST ABNORMALITY- LAT/HIGH LAT LEADS BASELINE ARTIFACT- I, II, III, AVR, AVL, AVF, V1 BORDERLINE ECG Compared to ECG 02/28/2024 12:14:20 NO SIGNIFICANT CHANGE Electronically Signed On 03-27-2024 11:17:01 CDT by Jake Persaud D.O.
[2024-03-27 11:24] LABS: Basophils Absolute Auto 0.1 K/mm3 (0.0-0.1); Basophils Percent Auto 1.3 % (0.2-1.2); Eosinophils Absolute Auto 0.2 K/mm3 (0-0.3); Eosinophils Percent Auto 1.7 % (0-4.4); Hematocrit 28.8 % (42.0-52.0); Hemoglobin 8.9 g/dL (14.0-18.0); Immature Granulocyte Absolute 0.29 K/mm3 (0.00-0.031); Immature Granulocyte Percent A 3.1 % (0-0.5); Lymphocytes Absolute Auto 2.11 K/mm3 (0.9-3.2); Lymphocytes Percent Auto 22.2 % (18.3-44.2); Mean Corpuscular HGB Conc 30.9 g/dl (32-36); Mean Platelet Volume 8.8 fl (7.4-10.4); Monocytes Absolute Auto 0.8 K/mm3 (0.1-0.6); Monocytes Percent Auto 8.1 % (2.6-8.5); Neutrophils Percent Auto 63.6 % (45.5-73.1); Nucleated Red Blood Cells Perc 0.7 % (0.0-0.2); Platelet Count Result 278 k/mm3 (150-375); Red Blood Count 2.97 M/mm3 (4.6-6.20); Red Cell Distribution Width 23.3 % (11.5-14.5); White Blood Count 9.5 K/mm3 (4.5-10.0)
[2024-03-27 11:36] LABS: Alanine Aminotransferase 20 U/L (6-50); Albumin Level 4.2 g/dL (3.5-5.1); Alkaline Phosphatase 597 U/L (38-126); Anion Gap 13 mmol/L (4-12); Aspartate Amino Transferase 29 U/L (17-59); Bilirubin,Total 0.4 mg/dL (0.2-1.3); Blood Urea Nitrogen 30 mg/dL (9-20); Calcium 8.1 mg/dL (8.4-10.2); Carbon Dioxide 17 mmol/L (22-30); Chloride 106 mmol/L (98-107); Estimated CRCL calculation 56 ml/min; Estimated Glomerular Filt Rate > 60; Glucose 98 mg/dL (65-110); Potassium 5.6 mmol/L (3.4-5.0); Sodium 136 mmol/L (137-145)
[2024-03-27 11:46] LABS: Anisocytosis 2+; Macrocytosis 1+ (NORMAL); Platelet Estimate Adequate (Adequate); Poikilocytosis 1+; Schistocytes None Seen
[2024-03-27] MEDS: LACTATED RINGERS 1,000 ML 999 ML IV CONT (11:56)
[2024-03-27] MEDS: FUROSEMIDE INJ 40 MG/4 ML VIAL IV PUSH (11:56)
[2024-03-27] MEDS: SODIUM ZIRCONIUM CYCLOSILICATE 10 GM POWD.PACK PO (12:14)
[2024-03-27 13:58] VITALS: BP 142/83; PULSE 84; RESP 21; O2SAT 100
[2024-03-27 14:07] LABS: Anion Gap 12 mmol/L (4-12); Blood Urea Nitrogen 32 mg/dL (9-20); Calcium 7.9 mg/dL (8.4-10.2); Carbon Dioxide 20 mmol/L (22-30); Chloride 103 mmol/L (98-107); Estimated CRCL calculation 50 ml/min; Estimated Glomerular Filt Rate > 60; Glucose 199 mg/dL (65-110); Potassium 4.9 mmol/L (3.4-5.0); Sodium 135 mmol/L (137-145)
[2024-03-27 14:33] VITALS: BP 129/54; PULSE 82; RESP 18; TEMP 36.6; O2SAT 100
--- NOTE | 2024-03-27 17:47 | ED.RECABL ---
HPI - Recheck/Abnormal Lab/Rx General Chief Complaint: Recheck/Abnormal Lab/Rx Stated Complaint: high K levels Time Seen by Provider: 03/27/24 11:03 History of Present Illness HPI narrative: Patient came to the ER sent by his PCP for high potassium, he denies any complaints and says he actually feels better than ever Related Data Home Medications Medication Instructions Recorded Confirmed atorvastatin 20 mg tablet 20 mg PO DAILY 06/04/19 02/29/24 flecainide 100 mg tablet 100 mg PO BID 06/04/19 02/29/24 metoprolol succinate 25 mg 25 mg PO HS 08/17/22 02/28/24 tablet,extended release 24 hr amlodipine 2.5 mg tablet 2.5 mg PO 1700 02/29/24 02/29/24 ascorbate calcium (vitamin C) 500 500 mg PO DAILY 02/29/24 02/29/24 mg tablet cholecalciferol (vitamin D3) 125 125 mcg PO 1700 02/29/24 02/29/24 mcg (5,000 unit) tablet (Vitamin D3) docusate sodium 100 mg capsule 100 mg PO HS 02/29/24 02/29/24 (Colace) duloxetine 60 mg capsule,delayed 60 mg PO HS 02/29/24 02/29/24 release esomeprazole magnesium 40 mg 40 mg PO 1200 02/29/24 02/29/24 capsule,delayed release (Nexium) ferrous sulfate 325 mg (65 mg 325 mg PO BID 02/29/24 02/29/24 iron) tablet morphine 15 mg immediate release 15 mg PO BID PRN pain 02/29/24 02/29/24 tablet vitamin A 2,400 mcg capsule 2,400 mcg PO 1700 02/29/24 02/29/24 Allergies Allergy/AdvReac Type Severity Reaction Status Date / Time No Known Allergies Allergy Verified 02/28/24 19:05 Review of Systems Review of Systems: All systems reviewed & are unremarkable except as noted in HPI and below PMFSH Past Medical History Medical History Acute on chronic blood loss anemia Anemia (11/02/20) hemoglobin 12.7 on 11/02/2020. Hemoglobin 12.5 on 11/10/2022. At high risk for falls Atrial fibrillation Benign paroxysmal positional vertigo due to bilateral vestibular disorder Bone metastases CAD (coronary artery disease), [place] coronary artery Chronic anxiety Chronic low back pain X-ray 07/19/2022 with degenerative changes of the lumbar spine with diffuse sclerotic metastatic lesions. Chronic pain of left knee COVID-19 virus detected (~02/16/20) Dermatitis of face (~09/23/22) Eczema Elevated PSA, between 10 and less than 20 ng/ml (11/02/20) PSA 16.3 on 11/02/2020 Eosinophilia (~11/02/20) eosinophil count 1248 on 11/02/2020 Essential hypertension Folliculitis Hematuria History of prostate cancer Iron deficiency anemia, unspecified total iron 31 with 7% saturation and ferritin 44 with hemoglobin 12.8 on 01/18/2021 Keloid scar Mixed hyperlipidemia Nocturia Obstructive sleep apnea on CPAP does not use CPAP Overweight (BMI 25.0-29.9) Paroxysmal atrial fibrillation Postoperative ileus Prostate cancer PSA 0.5 on 11/10/2022. PSA 4.7 on 03/29/2023. PSA 6.1 on 05/01/2023. Prostate cancer metastatic to bone Rectal bleeding Rib pain on left side (~07/09/22) Diffuse metastatic lesions of the spine, ribs, scapula with possible non displaced anterior lateral 9th rib fracture on x-ray 07/19/2022. Right inguinal pain Right sided abdominal pain Tinea cruris Tobacco use disorder, continuous 5 or 6 cigarettes daily Tubular adenoma of colon (09/19/23) tubular adenoma sigmoid colon 10/18/2023. Type 2 diabetes mellitus without complication, without long-term current use of insulin Glucose 173 on 11/10/2022. Family History Family History Mother Family history of malignant neoplasm Father Family history of malignant neoplasm Social History Social History Smoking packs per day: 0.2 Smoking cigarettes per day: 4.0 Years smoked: 60 Smoking pack-years: 12.00 Smoking status: Former smoker Alcohol intake: never Alcohol use details: HEAVIER DRINKER - QUIT EARLY Substance use: never Substanc
== END 2024-03-27 14:35 | disposition home or self-care (01) ==
PROVIDERS: Emergency Provider Emergency Medicine; PCP Family Medicine
DX: E87.5 Hyperkalemia (principal); K59.00 Constipation, unspecified; I48.91 Unspecified atrial fibrillation; I25.10 Atherosclerotic heart disease of native coronary artery without angina pectoris; I10 Essential (primary) hypertension; D50.9 Iron deficiency anemia, unspecified; E78.2 Mixed hyperlipidemia; G47.33 Obstructive sleep apnea (adult) (pediatric); F41.9 Anxiety disorder, unspecified; E11.9 Type 2 diabetes mellitus without complications; Z85.46 Personal history of malignant neoplasm of prostate; Z87.891 Personal history of nicotine dependence
CPT/HCPCS: 36415; 80048; 80053; 85025; 93005; 96361; 96374; 99284; A9270; J1940; J7120

== ENCOUNTER 2024-03-29 11:53 | Outpatient (CLI) | payer MEDICARE, SELFPAY ==
[2024-03-29 12:25] LABS: Anion Gap 13 mmol/L (4-12); Blood Urea Nitrogen 36 mg/dL (9-20); Calcium 8.2 mg/dL (8.4-10.2); Carbon Dioxide 21 mmol/L (22-30); Chloride 103 mmol/L (98-107); Estimated Glomerular Filt Rate 59; Glucose 89 mg/dL (65-110); Potassium 5.1 mmol/L (3.4-5.0); Sodium 137 mmol/L (137-145)
== END 2024-03-29 11:54 | disposition home or self-care (01) ==
PROVIDERS: PCP Family Medicine; Visit Provider Family Medicine
DX: E87.5 Hyperkalemia (principal)
CPT/HCPCS: 36415; 80048

== ENCOUNTER 2024-05-21 10:41 | Outpatient (CLI) | payer MEDICARE, SELFPAY | END 2024-05-21 10:42 | disposition home or self-care (01) | LOC: ANHAUDIO 10:43 | PROVIDERS: PCP Family Medicine; Visit Provider Family Medicine | DX: H91.90 Unspecified hearing loss, unspecified ear (principal) | CPT/HCPCS: 92567 ==

== ENCOUNTER 2024-08-31 18:13 | Emergency (ER) | payer MEDICARE, SELFPAY ==
--- NOTE | ~2024-08-31 | CT_ITS ---
EXAMINATION: CTA chest PE protocol DATE: 08/31/2024 21:36 HAZARDOUS WASTE TECHNICIAN INDICATION: Elevated d-dimer TECHNIQUE: Computed tomographic angiography (CTA) of the chest was performed with 100 mL Omnipaque-35 0 intravenous contrast. The dose-length product was 619.82 mGy-cm. Maximum intensity projection 3D-re constructions of the aorta and other arteries were constructed by the technologist on a separate work station. COMPARISON: Reference is made to a plain film evaluation of the chest performed 2 hours earlier. FINDINGS/OBSERVATIONS: Examination is markedly limited by significant motion artifact. PULMONARY ARTERIES: No filling defect is identified within the main or proximal pulmonary artery. The main pulmonary artery is not enlarged. THORACIC AORTA: No aneurysmal dilatation or dissection is present. The great vessels are intact LUNGS: Large bilateral pleural effusions, left greater than right, with adjacent compressive atelecta sis. MEDIASTINUM: No morphologically suspicious or pathologically enlarged lymph nodes are identified with in the mediastinum or bilateral axilla. BONES OF THE CHEST: No acute fracture. No significant degenerative disease. Diffuse blastic lesions within the visualized osseous structures, findings consistent with patient's known metastatic prostate cancer. HEART: The heart is of normal size, with a small pericardial effusion. IMPRESSION: No pulmonary embolus. No thoracic aortic dissection. Large bilateral pleural effusions, left greater than right with adjacent compressive atelectasis. Small pericardial effusion. Findings within the visualized osseous structures consistent with patient's known metastatic prostate cancer. Reviewed, dictated and finalized at location A. RDOUS WASTE TECHNICIAN IMPRESSION: No pulmonary embolus. No thoracic aortic dissection. Large bilateral pleural effusions, left greater than right with adjacent compre ssive atelectasis. Small pericardial effusion. Findings within the visualized osseous structures consistent with patient's kno wn metastatic prostate cancer.
--- NOTE | ~2024-08-31 | XR_ITS ---
CHEST RADIOGRAPH, PA AND LATERAL CLINICAL HISTORY: SOB . COMPARISON: 11/20/2023 TECHNIQUE: PA and lateral views of the chest. FINDINGS The cardiomediastinal silhouette is unremarkable. Interval development of a large left-sided pleural effusion with adjacent compressive atelectasis. Increased interstitial markings are identified bilaterally, findings suggesting mild pulmonary vascul ar congestion. The remainder of the lungs are clear. IMPRESSION: Mild pulmonary vascular congestion with a large left-sided pleural effusion. Reviewed, dictated and finalized at location A. RETE PUMP OPERATOR
--- OUTSIDE RECORDS SUMMARY | 2024-08-31 18:18 | XMS_ITS | Referral Summary ---
Author Organization [facility] Address [address] [place] [address] Care Team Providers Care Head Of Marketing Adometry Name Role Phone Unavailable Primary Care Provider Unavailabl e Source Comments [facility],non-owned Affiliates and Associated Physician Practices is amultiple site organization consisting of ambulatory clinics and hospital sitesin [place], [place], [place] and [place]. This disclosure is being madepursuant to the Care Everywhere program and may not contain all information available regarding this patient. Last updated 18.[facility] Social History Tobacco Use Types Packs/Day Years Used Date Smoking Tobacco: Never Assessed Sex and Gender Information Value Date Recorded Sex Assigned at Not on file Gender Identity Not on file Sexual Orientation Not on file Plan of Treatment Not on file
--- OUTSIDE RECORDS SUMMARY | 2024-08-31 18:18 | XMS_ITS | Encounter Summary ---
Author Organization [facility] Address [address] [place] [address] Phone Care Team Providers Care Bargeman Name Role Phone Saw Ga MD Primary Care Provider [phone] Devon Carlin MD Unavailable [phone] Encounter Details Date Type Department Care Team (Latest Contact Info) Description 06/30/2021 Orders Only [facility] Scanning, Provider Social History Tobacco Use Types Packs/Day Years Used Date Smoking Tobacco: Every Day Cigarettes Smokeless Tobacco: Never Alcohol Use Standard Drinks/Week Comments Yes 6 (1 standard drink = 0.6 oz pur e alcohol) rarely Sex and Gender Information Value Date Recorded Sex Assigned at Not on file Legal Sex Male 4:28 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 Gender Identity Not on file Sexual Orientation Not on file documented as of this encounter Plan of Treatment Not on file documented as of this encounter Procedures Procedure Name Priority Date/Time Associated Diagnosis Comments SCAN - PATHOLOGY 06/30/2021 documented in this encounter Results * SCAN - PATHOLOGY (06/30/2021) us Provider Scanning Edited Result - Final documented in this encounter Visit Diagnoses Not on filedocumented in this encounter Care Teams Bargeman Relationship Specialty Start Date End Date Saw Ga MD [address] [address] PCP - General 10/20/16 Devon Carlin MD [address] [place] [address] MEDICAL ONCOLOGY, [address] [place] [address] Medical Oncology 12/21/23 documented as of this encounter
--- OUTSIDE RECORDS SUMMARY | 2024-08-31 18:18 | XMS_ITS | Clinical Summary ---
Author Organization [facility] Address [address] [place] [address] Care Team Providers Care Associate Professor Of Biology Name Role Phone Unavailable Primary Care Provider Unavailabl e Source Comments [facility],non-owned Affiliates and Associated Physician Practices is amultiple site organization consisting of ambulatory clinics and hospital sitesin [place], [place], [place] and [place]. This disclosure is being madepursuant to the Care Everywhere program and may not contain all information available regarding this patient. Last updated 18.[facility] [employer] Social History Tobacco Use Types Packs/Day Years Used Date Smoking Tobacco: Never Assessed Sex and Gender Information Value Date Recorded Sex Assigned at Not on file Gender Identity Not on file Sexual Orientation Not on file Plan of Treatment Health Maintenance Due Date Last Done Comments MEDICARE AWV 12 MONTHS 1945 DTAP/TDAP/TD VACCINES (1 - Tdap) 1964 PNEUMOCOCCAL VACCINE 50+ (1 of 1 - PCV) 1995 ZOSTER VACCINE (1 of 2) 1995 Respiratory Syncytial Virus (RSV) Vaccine Pt: or over 60 yrs (1 - 1-dose 75+ series) 2020 COVID-19 VACCINE ( - 2023-2 5 season) 2024 INFLUENZA VACCINE (#1) 2024 DEPRESSION SCREENING 07/23/2024 HEPATITIS B VACCINE Aged Out No longe r eligible based on patient's age to complete this topic HIB VACCINE Aged Out No longer eligi ble based on patient's age to complete this topic HPV VACCINE Aged Out No longer eligi ble based on patient's age to complete this topic MENINGOCOCCAL (Group B) VACCINE Aged Out No longer eligible based on patient's age to complete this topic MENINGOCOCCAL VACCINE Aged Out No brenda dino eligible based on patient's age to complete this topic
--- OUTSIDE RECORDS SUMMARY | 2024-08-31 18:18 | XMS_ITS | CONTINUITY OF CARE DOCUMENT ---
Author Name jimmy marquez Address Unknown Organization [facility] Address [address] [place] [address] [address] [place] [address] Phone [phone] Care Team Providers Care Weld Inspector Name Role Phone jimmy marquez Unavailable Unavailable
--- OUTSIDE RECORDS SUMMARY | 2024-08-31 18:18 | XMS_ITS | Encounter Summary ---
Author Organization [facility] Address [address] [place] [address] Phone Care Team Providers Care Plastic Parts Fabricator Trimmer Name Role Phone Saw Ga MD Primary Care Provider [phone] Devon Carlin MD Unavailable [phone] Encounter Details Date Type Department Care Team (Latest Contact Info) Description 09/23/2021 Orders Only [facility] Scanning, Provider Social History Tobacco Use Types Packs/Day Years Used Date Smoking Tobacco: Every Day Cigarettes Smokeless Tobacco: Never Alcohol Use Standard Drinks/Week Comments Yes 6 (1 standard drink = 0.6 oz pur e alcohol) rarely Sex and Gender Information Value Date Recorded Sex Assigned at Not on file Legal Sex Male 4:28 AM 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 NURSE 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 Gender Identity Not on file Sexual Orientation Not on file documented as of this encounter Plan of Treatment Not on file documented as of this encounter Procedures Procedure Name Priority Date/Time Associated Diagnosis Comments SCAN - PATHOLOGY 09/23/2021 documented in this encounter Results * SCAN - PATHOLOGY (09/23/2021) us Provider Scanning Final Result documented in this encounter Visit Diagnoses Not on filedocumented in this encounter Care Teams Plastic Parts Fabricator Trimmer Relationship Specialty Start Date End Date Saw Ga MD [address] [address] PCP - General 10/20/16 [place] [address] [place] [address] MEDICAL ONCOLOGY, [address] [place] [address] Medical Oncology 12/21/23 documented as of this encounter
--- OUTSIDE RECORDS SUMMARY | 2024-08-31 18:18 | XMS_ITS | Patient Health Summary ---
Author Organization [facility] Address [address] [place] [address] Care Team Providers Care Property Claim Rep Name Role Phone Unavailable Primary Care Provider Unavailabl e Note from [facility],non-owned Affiliates and Associated Physician Practices is amultiple site organization consisting of ambulatory clinics and hospital sitesin [place], [place], [place] and [place]. This disclosure is being madepursuant to the Care Everywhere program and may not contain all information available regarding this patient. Last updated 18.[facility] Social History Tobacco Use Types Packs/Day Years Used Date Smoking Tobacco: Never Assessed Sex and Gender Information Value Date Recorded Sex Assigned at Not on file Gender Identity Not on file Sexual Orientation Not on file Procedures * GROSS + MICRO EXAM(Performed 10/04/2006) Results * GROSS + MICRO EXAM (10/04/2006 8:15 AM CDT) Result CASE NUMBER [id number] Comment: ORDERING PHYSICIAN Toan FERNANDO SPECIMEN TYPE Knee shavings DATE OF PROCEDURE 10/04/2006 SPECIMEN LABELED Left knee shavings PRE-OP DIAGNOSIS Meniscal tear left knee GROSS DESCRIPTION GROSS DESCRIPTION The specimen is received in formalin labeled left knee shavings patient Ej Steen, and consists of two sponge traps containing 6 grams of yellow, forde and white articular cuttings and shavings, up to 12 mm. One cassette. Dictated by Suman Lewis M.D. MICROSCOPIC DESCRIPTION Sections of the left knee shavings show fragments of fibroadipose tissue and cartilage with mild synovial hyperplasia. DIAGNOSIS Left knee shavings fibroadipose tissue and cartilage with mild synovial hyperplasia Dictated by Davie Jensen M.D. Animal Science Instructor ELVIN YEE Electronically Signed By DAVIE JENSEN MISCELLANEOUS SAMPLES / Unknown 10/04/2006 8:15 AM CDT 10/04/2006 10:20 AM CDT Historical Provider MD LAB - PATHOLOGY/C YTOLOGY ORDERABLES
--- OUTSIDE RECORDS SUMMARY | 2024-08-31 18:19 | XMS_ITS | Encounter Summary ---
Author Organization [facility] Address [address] [place] [address] Care Team Providers Care Hearing Therapy Director Name Role Phone Saw Ga MD Primary Care Provider Encounter Details Date Type Department Care Team (Late st Contact Info) Description 01/02/2006 Outpatient Historical [facility] Trauma and General Surgery [address] [phone] [place] [address] [place] [address] Social History Tobacco Use Types Packs/Day Years Used Date Smoking Tobacco: Never Assessed Sex and Gender Information Value Date Recorded Sex Assigned at Not on file Legal Sex Male 3:17 AM EQUAL OPPORTUNITY OFFICER Gender Identity Not on file Sexual Orientation Not on file documented as of this encounter Plan of Treatment Not on file documented as of this encounter Visit Diagnoses Not on filedocumented in this encounter Additional Health Concerns Infection Onset Date Last Indicated Resolved Time R/O C. diff 07/30/2024 07/30/2024 07/31/2024 7:00 PM EQUAL OPPORTUNITY OFFICER documented as of this encounter Care Teams Hearing Therapy Director Relationship Specialty Start Date End Date Saw Ga MD [address] [place] [id number] PCP - General Family Practice 02/17/19 documented as of this encounter
--- OUTSIDE RECORDS SUMMARY | 2024-08-31 18:19 | XMS_ITS | Encounter Summary ---
Author Organization [facility] Address [address] [place] [address] Care Team Providers Care Fruit Stuffer Name Role Phone Saw Ga MD Primary Care Provider [phone] Encounter Details Date Type Department Care Team (Late st Contact Info) Description 12/13/2005 Outpatient Historical [facility] Trauma and General Surgery [address] [address] Delgado Parra MD [address] [place] [phone] Social History Tobacco Use Types Packs/Day Years Used Date Smoking Tobacco: Never Assessed Sex and Gender Information Value Date Recorded Sex Assigned at Not on file Legal Sex Male 3:17 AM PIER HAND HELPER Gender Identity Not on file Sexual Orientation Not on file documented as of this encounter Plan of Treatment Not on file documented as of this encounter Visit Diagnoses Not on filedocumented in this encounter Additional Health Concerns Infection Onset Date Last Indicated Resolved Time R/O C. diff 07/30/2024 07/30/2024 07/31/2024 7:00 PM PIER HAND HELPER documented as of this encounter Care Teams Fruit Stuffer Relationship Specialty Start Date End Date Saw Ga MD [address] [place] [address] PCP - General Family Practice 02/17/19 documented as of this encounter
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
--- OUTSIDE RECORDS SUMMARY | 2024-08-31 18:19 | XMS_ITS ---
Author Organization [facility] Administrative Offices Address [address] [place] [address] Care Team Providers Care Sales Manager Name Role Phone Saw Ga MD Primary Care Provider [phone] Active Problems Problem Noted Date Diagnosed Date Hydroureter on left 08/01/2024 Right inguinal hernia 07/30/2024 Paroxysmal atrial fibrillation 07/30/2024 Hydroureteronephrosis 07/30/2024 Hyperlipidemia 07/30/2024 Type 2 diabetes mellitus wit hout complication, without long-term current use of insulin 07/30/2024 Gastroesophageal reflux disease without esophagi tis 07/30/2024 Anemia due to antineoplastic chemotherapy 2024 Prostate cancer metastatic to bone 09/28/2021 Current Treatment and Therapy Plans No current plan information found. Past Treatment and Therapy Plans No past plan information found. Lifetime Dose Tracking * Chemical Lifetime Dose Automatic Entry Manual Entr y Effective Dose 8.8 mSv 8.8 mSv 0 mSv Total DLP 615.85 DLP 615.85 DLP 0 DLP CTDIvol Max 10.94 mGy 10.94 mGy 0 mGy CTDIvol Min 7.98 mGy 7.98 mGy 0 mGy
--- OUTSIDE RECORDS SUMMARY | 2024-08-31 18:19 | XMS_ITS ---
Author Organization [facility] [address] Address [address] [place] [address] Care Team Providers Care Wig Comber Name Role Phone Saw Ga MD Primary Care Provider [phone] Devon Carlin MD Unavailable [phone] Active Problems Problem Noted Date Diagnosed Date Severe malnutrition (CMS/HCC) 01/19/2024 Assessment & Plan (01/19/2024 1:17 PM CDT): Energy Intake: < 75% energy intake compared to estimated energy needs > 1 month Weight Loss: > 10% in 6 months (16% x 6 monts) Muscle Mass Loss Severity: (moderate) Patient Meets Criteria for Severe Malnutrition: Yes National supplements. Onc care outpatient. Tinea cruris 01/18/2024 Assessment & Plan (01/18/2024 2:27 PM CDT): Darkening of the intertriginous genital folds with associated pruritus typical of tinea cruris. -Miconazole powder High serum potassium level 01/17/2024 Assessment & Plan (01/19/2024 1:11 PM CDT): Presented with K 6.0, peaked at 6.5. No EKG changes. Initially temporized with calcium gluconate, insulin/dextrose and albuterol with improvement in K. Also initially given Lokelma 1x and Lasix 1x for management. Interestingly, overnight and into the AM of day two of admission potassium levels lowered and continued to stay lower, despite cessation of temporizing measures. Day 2 of admission K = 4.1 by 7 AM not needing any additional treatment. Unclear etiology given the nearly spontaneous rapid resolution. Could be contributed by losartan and increasing dietary intake of potassium. Clinical history and labs not consistent with TLS. No elevation in creatinine to suggest renal injury and patient making good urine. Docetaxel appears not to have known adverse effects of nephrotoxicity or renal tubular acidosis. - discontinued home losartan - K has been consistently low. Patient is interested in discharge. -Discharge with lokelma x 1 week. Close onc follow up with BMP on follow up -Patient counseled on low K diet and return precautions Metastasis to bone ([facility]) 12/27/2023 Prostate cancer 12/27/2023 Constipation 12/19/2023 Assessment & Plan (12/19/2023 3:51 AM CDT): Last BM two days prior to presentation - Scheduled and PRN bowel reg Acute nonintractable headache, unspecified heada jony type 12/18/2023 Assessment & Plan (12/21/2023 12:21 PM CDT): Worsened headache found with osseous metastasis throughout calvarium. Suspect driving pain and presentation. - Pain control with percocet--will prescribe at discharge - Radiation oncology consult for evaluation for XRT-- unfortunately given the location of metastasis unlikely to have benefit from radiation. Radiation Oncology is recommending medical management with oral pain control and follow-up with oncologist - headache resolved. Percocet q4h PRN at discharge with bowel regimen. Prostate cancer 11/22/2023 Cancer Staging:Clinical stage from 12/27/2023: cT3, cN0, cM0, PSA: 58 - Signed by Devon Carlin MD on 12/27/2023 Assessment & Plan (01/19/2024 1:10 PM CDT): Follows with Dr. Carlin. Initially diagnosed with Miriam 10 adenocarcinoma with PSA 50 in 05/2021. S/p prostatectomy, later found with metastatic bone lesions. Recently started on docetaxel after PD on enzalutamide, with last C1D1 completed 01/09 and C1D8 deferred due to current presentation. Recently admitted for headache in setting of likely osseous metastases throughout calvarium. Evaluated by Radiation Oncology at the time with likely no benefit from radiation given location of mets and treated conservatively with medications. -Likely plan to reschedule C1D8 treatment as outpatient Confirmed patient will have close follow up with Dr. Good today Assessment & Plan (12/21/2023 12:21 PM CDT): Follows with [facility] oncology for prostate cancer, initially diagnosed T3N0 05/2021, s/p biopsy with miriam score 8,9,10 adeno in 01/01 cores. S/p radical prostatectomy with bilateral PLND 2020. Found with metastasis 08/2021. Started abiraterone and ADT, switched to enzalutamide 08/2023 due to PD, subsequently held due to anemia. - Outpatient follow up - Pain control for cancer related pain: Percocet q4h PRN controlling pain - family is wanting another opinion--Oncology met with patient and recommend outpatient follow-up with the oncologist here at [facility]. Oncology to arrange follow-up at discharge Assessment & Plan (11/22/2023 2:52 PM CDT): Sees oncologist Trent Nicholas (last September 2023) Continue Lupron monthly Xgeva and PRN Tramadol for pain Anemia of chronic disease 11/22/2023 Assessment & Plan (12/19/2023 3:54 AM CDT): Hgb 8.9 in setting of cancer. Not bleeding at this time. Appears on Procrit per outpatient oncologist despite cancer? 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 Procrit 20,000 units on a biweekly basis. iron to 65 mg twice a day. Encounter for medication review 11/22/2023 Assessment & Plan (11/22/2023 2:55 PM CDT): Home medications reviewed- holding coumadin Discharge planning issues 11/22/2023 Assessment & Plan (11/23/2023 2:35 PM CDT): 11/21 BI consult ordered patient has cleared for home with family and home health PT/OT GERD (gastroesophageal reflux disease) Assessment & Plan (12/19/2023 3:51 AM CDT): - Formulary equivalent PPI Assessment & Plan (11/22/2023 3:08 PM CDT): Continue PPI Moderate protein-calorie malnutrition (CMS/HCC) 11/22/2023 Subdural hematoma 11/21/2023 Assessment & Plan (01/17/2024 10:23 PM CDT): Managed conservatively at prior admission. Not on AC as a result. No focal deficits. Assessment & Plan (12/19/2023 3:48 AM CDT): Recent admission for SDH. Repeat HCT and bMRI without new or worsened bleed. Evaluated by NSGY in ED without any operative plans. - Discussed with beverley GIBSON with [facility] for DVT ppx Assessment & Plan (11/22/2023 2:54 PM CDT): Neurosurgery team for 3 mm R frontal SDH, which was managed non-operatively, and followed with stable serial imaging. This patient was staffed with Dr. Avendano The patient should be seen in clinic in 4-6 weeks with a non-contrast head CT. OK for [facility] for DVT prophylaxis and Q4H NC. Hold home coumadin until follow up outpatient with repeat non-con head CT -BI consult Encounter for monitoring flecainide therapy 03/2024 Essential hypertension 08/17/2022 Assessment & Plan (01/19/2024 1:08 PM CDT): - Continue home metoprolol - Increase home amlodipine dose to 5mg daily - discontinue home losartan given hyperkalemia Assessment & Plan (12/19/2023 3:51 AM CDT): - Home losartan, metoprolol, amlodipine Assessment & Plan (11/21/2023 2:45 PM CDT): Home medication Amlodipine and losartan Hematuria 02/09/2022 History of 2019 novel coronavirus disease (COVID -19) 02/26/2020 Tobacco abuse 05/05/2019 Fall 09/06/2017 Syncope and collapse 09/06/2017 Chest pain 09/06/2017 EJ (obstructive sleep apnea) 03/01/2017 Assessment & Plan (01/17/2024 7:23 PM CDT): - CPAP qHS Chronic anticoagulation 02/05/2017 Atrial fibrillation (CMS/HCC) 09/13/2011 Overview (10/27/2016): Atrial fibrillation Assessment & Plan (01/17/2024 7:25 PM CDT): Paroxysmal. Currently not on anticoagulation due to recent SDH. NSR on presentation. - continue home beta-chace, flecainide Assessment & Plan (12/19/2023 3:50 AM CDT): On metoprolol and flecanide at home - Continue home meds Assessment & Plan (11/22/2023 3:06 PM CDT): Holding home Coumadin, continue metoprolol for rate control Dissolver Operator Dr Escamilla aware (11/21) plan for watchman in the future Osteoarthritis Overview (01/10/2024): Osteoarthritis Current Oncology Plans DOCEtaxel (D1, D8) 21 Day Cycles - Prostate* Plan Start Date:01/03/2024 Plan Provider:Devon Carlin MD Linked Problems Metastasis to bone (CMS/HCC) (HCC)Prostate cancer (HCC) Treatment Medications Current Day (Day 8 , Cycle 10 - Planned for 09/04/2024) Next Day (Day 1, Cycle 11 - Planned for 09/18/2024) dexAMETHasone (DECADRON)DOCEtaxel (TAXOTERE)DOCEtaxel (TAXOTERE) IVPB in 100 mL (vial 10mg/mL)DOCEtaxel (TAXOTERE) IVPB in 100 mL (vial 20mg/mL) DOCEtaxeL (TAXOTERE) 66 mg in sodium chloride 0.9% (PVC-FREE) 100 mL IVPB DOCEtaxeL (TAXOTERE) 66 mg in sodium chloride 0.9% (PVC-FREE) 100 mL IVPB IV Maintenance Therapy Plan* Plan Start Date:05/01/2024 Plan Provider:Devon Carlin MD Linked Problems Metastasis to bone (CMS/HCC) (HCC)Prostate cancer (HCC) Treatment Medications No medications scheduled. Leuprolide Every 3 Months - Prostate* Plan Start Date:02/07/2024 Plan Provider:Devon Carlin MD Linked Problems Metastasis to bone (CMS/HCC) (HCC)Prostate cancer (HCC) Treatment Medications Current Day (Day 1 , Cycle 4 - Planned for 10/16/2024) Next Day (Day 1, Cycle 5 - Planned for 01/08/2025) leuprolide (3 month) (LUPRON) leuprolide (3 month) (LUPRON) injection 22.5 mg leuprolide (3 month) (LUPRON) injection 22.5 mg Past Plans No past plan information found. Radiation Treatments * No radiation treatments are documented for this patient in [facility]. Treatments may have been administered in another system. Lifetime Dose Tracking * Chemical Lifetime Dose Automatic Entry Manual Entr y DLP 4,216 mGycm 4,216 mGycm 0 mGycm
--- OUTSIDE RECORDS SUMMARY | 2024-08-31 18:19 | XMS_ITS | Encounter Summary ---
Author Organization [facility] Address [address] [place] [address] Care Team Providers Care Corporate Operations Compliance Manager Name Role Phone Saw Ga MD Primary Care Provider [phone] Encounter Details Date Type Department Care Team (Late st Contact Info) Description 01/06/2006 Outpatient Historical [facility] S[facility]cs Blood Flow [address] [place] [address] Gonzalo Polk MD NO ADDRESS ON FILE Social History Tobacco Use Types Packs/Day Years Used Date Smoking Tobacco: Never Assessed Sex and Gender Information Value Date Recorded Sex Assigned at Not on file Legal Sex Male 3:17 AM UTILITY APPRAISER Gender Identity Not on file Sexual Orientation Not on file documented as of this encounter Plan of Treatment Not on file documented as of this encounter Visit Diagnoses Not on filedocumented in this encounter Additional Health Concerns Infection Onset Date Last Indicated Resolved Time R/O C. diff 07/30/2024 07/30/2024 07/31/2024 7:00 PM UTILITY APPRAISER documented as of this encounter Care Teams Corporate Operations Compliance Manager Relationship Specialty Start Date End Date Saw Ga MD [address] [place] [phone] PCP - General Family Practice 02/17/19 documented as of this encounter
--- OUTSIDE RECORDS SUMMARY | 2024-08-31 18:19 | XMS_ITS | Encounter Summary ---
Author Organization [employer] Address [address] [place] [address] Care Team Providers Care Spring Maker Name Role Phone Saw Ga MD Primary Care Provider [phone] Encounter Details Date Type Department Care Team (Latest Contact Info) Description 12/12/2005 Inpatient Historical [facility] [place] [address] [place] [address] Closed Fracture of Upper End of Fibula with Tibia (Primary Dx) Social History Tobacco Use Types Packs/Day Years Used Date Smoking Tobacco: Never Assessed Sex and Gender Information Value Date Recorded Sex Assigned at Not on file Legal Sex Male 3:17 AM GENERAL CLERK Gender Identity Not on file Sexual Orientation Not on file documented as of this encounter Plan of Treatment Not on file documented as of this encounter Visit Diagnoses Diagnosis Closed fracture of upper end of fibula with tibia- Primary documented in this encounter Additional Health Concerns Infection Onset Date Last Indicated Resolved Time R/O C. diff 07/30/2024 07/30/2024 07/31/2024 7:00 PM GENERAL CLERK documented as of this encounter Care Teams Spring Maker Relationship Specialty Start Date End Date Saw Ga MD [address] [place] [phone] PCP - General Family Practice 02/17/19 documented as of this encounter
--- OUTSIDE RECORDS SUMMARY | 2024-08-31 18:19 | XMS_ITS | Encounter Summary ---
Author Organization [employer] Address [address] [place] [address] Care Team Providers Care Service Rig Operator Name Role Phone Saw Ga MD Primary Care Provider [phone] Encounter Details Date Type Department Care Team (Late st Contact Info) Description 12/12/2005 Outpatient Historical [facility] Support Serv. (Adt Cardiology[facility]) [address] [place] [address] Collin Dennis MD NO ADDRESS ON FILE Social History Tobacco Use Types Packs/Day Years Used Date Smoking Tobacco: Never Assessed Sex and Gender Information Value Date Recorded Sex Assigned at Not on file Legal Sex Male 3:17 AM CORPORATE PILOT Gender Identity Not on file Sexual Orientation Not on file documented as of this encounter Plan of Treatment Not on file documented as of this encounter Visit Diagnoses Not on filedocumented in this encounter Additional Health Concerns Infection Onset Date Last Indicated Resolved Time R/O C. diff 07/30/2024 07/30/2024 07/31/2024 7:00 PM CORPORATE PILOT documented as of this encounter Care Teams Service Rig Operator Relationship Specialty Start Date End Date Saw Ga MD [address] [place] [phone] PCP - General Family Practice 02/17/19 documented as of this encounter
--- OUTSIDE RECORDS SUMMARY | 2024-08-31 18:19 | XMS_ITS | Encounter Summary ---
Author Organization [employer] Address [address] [place] [address] Care Team Providers Care Reservoir Engineering Consultant Name Role Phone Saw Ga MD Primary Care Provider [phone] Encounter Details Date Type Department Care Team (Latest Contact Info) Description 08/17/2006 Outpatient Historical [facility] CARD INSPECTION MACHINE TENDER Ori Alonso MD [address] [place] [address] Other Chest Pain (Primary Dx) Social History Tobacco Use Types Packs/Day Years Used Date Smoking Tobacco: Never Assessed Sex and Gender Information Value Date Recorded Sex Assigned at Not on file Legal Sex Male 3:17 AM DISINTEGRATOR FEEDER Gender Identity Not on file Sexual Orientation Not on file documented as of this encounter Plan of Treatment Not on file documented as of this encounter Visit Diagnoses Diagnosis Other chest pain- Primary documented in this encounter Additional Health Concerns Infection Onset Date Last Indicated Resolved Time R/O C. diff 07/30/2024 07/30/2024 07/31/2024 7:00 PM DISINTEGRATOR FEEDER documented as of this encounter Care Teams Reservoir Engineering Consultant Relationship Specialty Start Date End Date Saw Ga MD [address] [place] [address] PCP - General Family Practice 02/17/19 documented as of this encounter
--- OUTSIDE RECORDS SUMMARY | 2024-08-31 18:19 | XMS_ITS | Encounter Summary ---
Author Organization [employer] Address [address] [place] [address] Care Team Providers Care Electric Organ Assembler Name Role Phone Saw Ga MD Primary Care Provider [phone] Encounter Details Date Type Department Care Team (Late st Contact Info) Description 01/06/2006 Outpatient Historical [facility] EM[facility] Patrick Mohan MD [facility] [place] [address] Er, Authorized P NO ADDRESS ON FILE Swelling of Limb (Primary Dx) Social History Tobacco Use Types Packs/Day Years Used Date Smoking Tobacco: Never Assessed Sex and Gender Information Value Date Recorded Sex Assigned at Not on file Legal Sex Male 3:17 AM STAFFING EXECUTIVE Gender Identity Not on file Sexual Orientation Not on file documented as of this encounter Plan of Treatment Not on file documented as of this encounter Procedures Procedure Name Priority Date/Time Associated Diagnosis Comments CBC WITH DIFFERENTIAL Routine 01/06/2006 5:15 PM CDT CBC WITH DIFFERENTIAL Routine 01/06/2006 5:15 PM CDT C-REACTIVE PROTEIN Routine 01/06/2006 5: 15 PM CDT COMPREHENSIVE METABOLIC PANEL Routine 01/06/2006 5:15 PM CDT documented in this encounter Results * (ABNORMAL) CBC WITH DIFFERENTIAL (01/06/2006 5:15 PM CDT) NEUTROPHILS 38(L) 45 - 70 % INTERFAC E SYSTEM LYMPHOCYTES 48(H) 16 - 45 % INTERFAC E SYSTEM MONOCYTES 7 3 - 13 % INTERFACE SYSTEM EOSINOPHILS 5 0 - 7 % INTERFAC E SYSTEM BASOPHILS 1 0 - 2 % INTERFACE SYSTEM NEUTROPHIL ABSOLUTE 2.74 1.90 - 7.00 K/uL INTERFACE SYSTEM LYMPHOCYTE ABSOLUTE 3.47 0.70 - 4.50 K/uL INTERFACE SYSTEM MONOCYTE ABSOLUTE 0.53 0.10 - 1.30 K/uL INTERFACE SYSTEM EOSINOPHIL ABSOLUTE 0.39 0.00 - 0.70 K/uL INTERFACE SYSTEM BASOPHILS ABSOLUTE 0.10 0.00 - 0.20 K/uL INTERFACE SYSTEM 01/06/2006 5:15 PM CDT Patrick Mohan MD HEMATOLOGY ORDERABLES Final Resu lt Performing Organization Address [facility] de Phone Number INTERFACE SYSTEM Refer to clinic/hospital department * CBC WITH DIFFERENTIAL (01/06/2006 5:15 PM CDT) WBC 7.2 4.0 - 9.8 K/uL INTERFACE SYSTEM RBC 4.68 4.50 - 5.40 M/uL INTERFACE SYSTEM HEMOGLOBIN 13.7 13.6 - 16.5 g/dL INTERFACE SYSTEM HEMATOCRIT 40.5 40.0 - 48.0 % INTERFACE SYSTEM MCV 86.5 82.0 - 99.0 fL INTERFACE SYSTEM MCH 29.3 27.2 - 32.6 pg INTERFACE SYSTEM MCHC 33.8 31.5 - 35.5 % INTERFACE SYSTEM RDW 13.5 11.5 - 14.5 % INTERFACE SYSTEM RDW-STDEV 42.7 37.1 - 48.7 fL INTERFACE SYSTEM PLATELETS 341 140 - 350 K/uL INTERFACE SYSTEM MPV 9.7 9.3 - 12.4 fL INTERFACE SYSTEM 01/06/2006 5:15 PM CDT Patrick Mohan MD HEMATOLOGY ORDERABLES Final Resu lt Performing Organization Address [facility] Phone Number INTERFACE SYSTEM Refer to clinic/hospital department * C-REACTIVE PROTEIN (01/06/2006 5:15 PM CDT) CRP 0.7 0.0 - 0.8 mg/dL INTERFACE SYSTEM 01/06/2006 5:15 PM CDT Patrick Mohan MD CHEMISTRY ORDERABLES Final Resul t Performing Organization Address [facility] Phone Number INTERFACE SYSTEM Refer to clinic/hospital department * (ABNORMAL) COMPREHENSIVE METABOLIC PANEL (01/06/2006 5:15 PM CDT) GLUCOSE 123(H) 65 - 99 mg/dL INTERFACE SYSTEM Comment:Note: Effective December 05, 2005, reference range now reflects a fasting st ate. CREATININE 0.9 0.5 - 1.3 mg/dL INTERFACE SYSTEM CALCIUM 9.3 8.6 - 10.2 mg/dL INTERFACE SYSTEM ALKALINE PHOSPHATASE 216(H) 40 - 129 U/L INTERFACE SYSTEM AST 56(H) 12 - 38 U/L INTERFACE SYSTEM ALT 134(H) 0 - 41 U/L INTERFACE SYSTEM TOTAL PROTEIN 7.8 6.3 - 8.6 g/dL INTERFACE SYSTEM ALBUMIN 4.5 3.4 - 4.8 g/dL INTERFACE SYSTEM BILIRUBIN TOTAL 0.4 0.2 - 1.0 mg/dL INTERFACE SYSTEM BUN 13 6 - 20 mg/dL INTERFACE SYSTEM SODIUM 137 135 - 145 mmol/L INTERFACE SYSTEM POTASSIUM 3.9 3.5 - 4.9 mmol/L INTERFACE SYSTEM CHLORIDE 103 96 - 108 mmol/L INTERFACE SYSTEM CO2 24 22 - 30 mmol/L INTERFACE SYSTEM 01/06/2006 5:15 PM CDT Patrick Mohan MD CHEMISTRY ORDERABLES Final Resul t Performing Organization Address [facility] Phone Number INTERFACE SYSTEM Refer to clinic/hospital department documented in this encounter Visit Diagnoses Diagnosis Swelling of limb- Primary documented in this encounter Additional Health Concerns Infection Onset Date Last Indicated Resolved Time R/O C. diff 07/30/2024 07/30/2024 07/31/2024 7:00 PM STAFFING EXECUTIVE documented as of this encounter Care Teams Electric Organ Assembler Relationship Specialty Start Date End Date Saw Ga MD [facility] [place] [address] PCP - General Family Practice 02/17/19 documented as of this encounter
--- OUTSIDE RECORDS SUMMARY | 2024-08-31 18:19 | XMS_ITS | Encounter Summary ---
Author Organization [facility] Address [address] [place] [address] Care Team Providers Care Rn Labor And Delivery Name Role Phone Saw Ga MD Primary Care Provider Encounter Details Date Type Department Care Team (Late st Contact Info) Description 12/29/[address] [facility] Trauma and General Surgery [address] [facility] [address] [address] Delgado Parra MD [address] [place] [phone] Social History Tobacco Use Types Packs/Day Years Used Date Smoking Tobacco: Never Assessed Sex and Gender Information Value Date Recorded Sex Assigned at Not on file Legal Sex Male 3:17 AM SAFETY ADMINISTRATOR Gender Identity Not on file Sexual Orientation Not on file documented as of this encounter Plan of Treatment Not on file documented as of this encounter Visit Diagnoses Not on filedocumented in this encounter Additional Health Concerns Infection Onset Date Last Indicated Resolved Time R/O C. diff 07/30/2024 07/30/2024 07/31/2024 7:00 PM SAFETY ADMINISTRATOR documented as of this encounter Care Teams Rn Labor And Delivery Relationship Specialty Start Date End Date Saw Ga MD [address] [place] [phone] PCP - General Family Practice 02/17/19 documented as of this encounter
--- OUTSIDE RECORDS SUMMARY | 2024-08-31 18:19 | XMS_ITS | Encounter Summary ---
Author Organization [facility] Address [address] [place] [address] Care Team Providers Care Agricultural Research Technologist Name Role Phone Saw Ga MD Primary Care Provider Encounter Details Date Type Department Care Team (Late st Contact Info) Description 12/12/2005 Outpatient Historical [facility] Trauma and General Surgery [address] [id number] [place] [address] [place] [id number] Social History Tobacco Use Types Packs/Day Years Used Date Smoking Tobacco: Never Assessed Sex and Gender Information Value Date Recorded Sex Assigned at Not on file Legal Sex Male 3:17 AM MACHINERY DISM[employer]ER Gender Identity Not on file Sexual Orientation Not on file documented as of this encounter Plan of Treatment Not on file documented as of this encounter Visit Diagnoses Not on filedocumented in this encounter Additional Health Concerns Infection Onset Date Last Indicated Resolved Time R/O C. diff 07/30/2024 07/30/2024 07/31/2024 7:00 PM MACHINERY DISMANTLER documented as of this encounter Care Teams Agricultural Research Technologist Relationship Specialty Start Date End Date Saw Ga MD [address] [place] [id number] PCP - General Family Practice 02/17/19 documented as of this encounter
--- OUTSIDE RECORDS SUMMARY | 2024-08-31 18:19 | XMS_ITS | Referral Summary ---
Author Organization [facility] [id number] Address [address] [place] [address] Care Team Providers Care Supervisor Instrument Repair Name Role Phone Saw Ga MD Primary Care Provider [phone] Devon Carlin MD Unavailable [phone] Encounters Date Type Department Care Team Description 08/29/2024 Orders Only [facility] Oncology [address] [place] [address] Devon Carlin MD 08/28/2024 9:30 AM TROUBLE TRACER Infusion [facility] - Infusion [address] [facility] Floor 5 [place] [address] Prostate cancer (HCC) (Primary Dx); Metastasis to bone (CMS/HCC) (HCC) 08/28/2024 7:30 AM TROUBLE TRACER Lab [facility] - Lab Collection [facility] Floor 5 [place] [address] Metastasis to bone (CMS/HCC) (HCC); Prostate cancer (HCC) 08/28/2024 8:30 AM TROUBLE TRACER Office Visit [facility] Oncology [facility] Floor 5 [place] [address] Devon Carlin MD Prostate cancer (HCC) (Primary Dx); Metastasis to bone (CMS/HCC) (HCC) 08/06/2024 Telephone [facility] Oncology [address] Floor 5 [place] [phone] Devendra Jane RN 07/28/2024 Telephone [facility] Neurosurgery [address] [facility] 6th [place] [address] [place] [address] Belkis Hoang PA 07/25/2024 8:00 AM TROUBLE TRACER Infusion [facility] [place] - Infusion [address] Floor 5 [place] [address] Prostate cancer (HCC) (Primary Dx); Metastasis to bone (CMS/HCC) (HCC) 07/25/2024 7:15 AM TROUBLE TRACER Lab [facility] - Lab Collection [address] Floor [address] [place] [address] Metastasis to bone (CMS/HCC) (HCC); Prostate cancer (HCC) 07/25/2024 8:15 AM TROUBLE TRACER Infusion [facility] [place] - Infusion [address] Floor 5 [place] [address] Metastasis to bone (CMS/HCC) (HCC); Prostate cancer (HCC) 07/21/2024 Orders Only [facility] Oncology [address] [place] [address] Devon Carlin MD 07/21/2024 Orders Only [facility] Oncology [address] [place] [address] Devon Carlin MD 07/17/2024 9:00 AM TROUBLE TRACER Infusion [facility] [place] - Infusion [address] Floor [address] [place] [address] Prostate cancer (HCC) (Primary Dx); Metastasis to bone (CMS/HCC) (HCC) 07/17/2024 7:45 AM TROUBLE TRACER Lab [facility] - Lab Collection [address] [place] [address] Metastasis to bone (CMS/HCC) (HCC); Prostate cancer (HCC) 07/17/2024 8:45 AM TROUBLE TRACER Office Visit [facility] Oncology [address] [facility] Floor 5 [place] [address] Devon Carlin MD Prostate cancer (HCC) (Primary Dx); Metastasis to bone (CMS/HCC) (HCC) 07/03/2024 7:30 AM TROUBLE TRACER Infusion [facility] - Infusion [address] [place] [address] Prostate cancer (HCC) (Primary Dx); Metastasis to bone (CMS/HCC) (HCC) 07/03/2024 6:45 AM TROUBLE TRACER Lab [facility] - Lab Collection [address] Floor [address] [place] [address] Metastasis to bone (CMS/HCC) (HCC); Prostate cancer (HCC) 06/26/2024 7:00 AM TROUBLE TRACER Lab [facility] - Lab Collection [facility] [place] [address] Metastasis to bone (CMS/HCC) (HCC); Prostate cancer (HCC) 06/26/2024 8:15 AM TROUBLE TRACER Office Visit [facility] Oncology [facility] Floor 5 [place] [address] Devon Carlin MD Prostate cancer (HCC) (Primary Dx); Metastasis to bone (CMS/HCC) (HCC) 06/26/2024 9:30 AM TROUBLE TRACER Infusion [facility] - Infusion [address] 5 [place] [address] Prostate cancer (HCC) (Primary Dx); Metastasis to bone (CMS/HCC) (HCC) 06/12/2024 7:00 AM TROUBLE TRACER Lab [facility] - Lab Collection [facility] [place] [address] Prostate cancer (HCC) (Primary Dx); Metastasis to bone (CMS/HCC) (HCC) 06/12/2024 8:00 AM TROUBLE TRACER Infusion [facility] - Infusion [address] Floor 5 [place] [address] Prostate cancer (HCC) (Primary Dx); Metastasis to bone (CMS/HCC) (HCC) 06/05/2024 9:00 AM TROUBLE TRACER Office Visit [facility] Oncology [address] [place] [address] Floor 5 [place] [phone] Devon Carlin MD Prostate cancer (HCC) (Primary Dx); Metastasis to bone (CMS/HCC) (HCC) 06/05/2024 8:00 AM TROUBLE TRACER Lab [facility] - Lab Collection [address] [facility] Floor 5 [place] [address] Metastasis to bone (CMS/HCC) (HCC); Prostate cancer (HCC) 06/05/2024 10:00 AM TROUBLE TRACER Infusion [facility] - Infusion [address] 6 [place] [address] Prostate cancer (HCC) (Primary Dx); Metastasis to bone (CMS/HCC) (HCC) 06/03/2024 Telephone [facility] Oncology [address] [place] [address] Floor 5 [place] [address] Devendra Jane RN 06/03/2024 Orders Only [facility] Oncology [address] [place] [address] Floor 5 [place] [address] Devon Carlin MD Prostate cancer (HCC) (Primary Dx); Metastasis to bone (CMS/HCC) (HCC) from Last 3 Months Allergies Active Allergy Reactions Criticality Noted Date Comments Docetaxel Shortness of breath,Itching,Dizziness ,Flushing (skin) High 06/12/2024 Significant event note 01/03/24 Medications atorvastatin (LIPITOR) 20 mg tablet TOME MIKY TABLETA TODOS LOS KAY 90 tablet 3 024 Active Additional Information Patient taking differently: one tablet daily by mouth, Informant: Child, Reported on 08/28/2024 senna-docusate (PERICOLACE) 8.6-50 mg Take 1 tablet by mouth daily 8 tablet 024 Active metFORMIN XR (GLUCOPHAGE XR) 500 mg 24 hr tabletIndication s:type 2 diabetes mellitus Take 1 tablet (500 mg total) by mouth daily with breakfast 30 tablet 024 Active docusate sodium (COLACE) 100 mg capsule TOME 1 C PSULA POR V A ORAL DOS VECES AL D A 024 Active clotrimazole 1 % cream Apply topically 2 (two) times a day 30 g Active amLODIPine (NORVASC) 5 mg tablet Take 1 tablet (5 mg total) by mouth daily 30 tablet 2024 Active polyethylene glycol (MIRALAX) 17 gram/dose bulk powderIndication s:constipation Take 17 g by mouth daily 510 g Active sodium zirconium cyclosilicate (LOKELMA) 10 gram packetIndication s:hyperkalemia Take 1 packet (10 g total) by mouth daily [address] (CYMBALTA) 60 mg capsule Take 1 capsule (60 mg total) by mouth daily Active lidocaine (LIDODERM) 5 % Apply 1 patch topically daily Remove after 12 hours (need 12 hour patch free period). 10 patch Active acetaminophen (TYLENOL) 500 mg tablet Take 1 tablet (500 mg total) by mouth every 6 (six) hours as needed for pain 30 tablet Active oxyCODONE-acetam inophen (PERCOCET) 10-325 mg per tablet TOME MIKY TABLETA POR V A ORAL CADA SEIS HORAS CUANDO SEA NECESARIO PARA EL DOLOR Active predniSONE (DELTASONE) 5 mg tablet Active flecainide (TAMBOCOR) 100 mg tablet TOME 1 TABLETA POR VIA ORAL DOS VECES AL REENA 180 tablet 1 Active dexAMETHasone (DECADRON) 4 mg tabletIndication s:hypersensitivi ty drug reaction Take 1 tablet (4 mg total) by mouth daily Take one tablet (4 mg) the night before chemotherapy, take one tablet (4 mg) the morning of chemotherapy for the prevention of infusion reactions. 24 tablet Active traZODone (DESYREL) 50 mg tablet Take 1 tablet (50 mg total) by mouth nightly at bedtime. Active esomeprazole DR (NexIUM) 40 mg capsule TOME 1 C PSULA POR V A ORAL A DIARIO Active metoprolol XL (TOPROL-XL) 25 mg extended release tabletIndication s:hypertension TAKE 1 TABLET (25 MG TOTAL) BY MOUTH DAILY. 90 tablet 3 024 2024 Active amoxicillin (AMOXIL) 250 mg capsule TOME 1 C PSULA POR V A ORAL CADA 8 HORAS HASTA QUE SE TERMINE 025 Active morphine ER (MS CONTIN) 15 mg 12 hr tabletIndication s:Prostate cancer (HCC),Prostate cancer metastatic to bone (HCC),Cancer related pain Take 1 tablet (15 mg total) by mouth 2 (two) times a day 60 tablet 024 2024 Discontinued Active Problems Problem Noted Date Diagnosed Date [...] diet and return precautions Metastasis to bone (CMS/HCC) 12/27/2023 Prostate cancer 12/27/2023 Constipation 12/19/2023 Assessment [...] Follows with Dr. Carlin. Initially diagnosed with Do 10 adenocarcinoma with PSA 50 in 05/2021. [...] (12/21/2023 12:21 PM CDT): Follows with [facility] oncology for prostate cancer, initially diagnosed T3N0 05/2021, s/p biopsy with do score 8,9,10 adeno in 6/12 cores. S/p radical prostatectomy with bilateral PLND 2020. Found with metastasis 08/2021. Started abiraterone and ADT, switched to enzalutamide 08/2023 due to PD, subsequently held due to anemia. - Outpatient follow up - Pain control for cancer related pain: Percocet q4h PRN controlling pain - family is wanting another opinion--Oncology met with patient and recommend outpatient follow-up with the oncologist here at [facility]. Oncology to arrange follow-up at discharge Assessment [...] plans. - Discussed with beverley GIBSON with [facility] for DVT ppx Assessment & Plan (11/22/2023 2:54 PM CDT): Neurosurgery team for 3 mm R frontal SDH, which was managed non-operatively, and followed with stable serial imaging. This patient was staffed with Dr. Avendano The patient should be seen in clinic in 4-6 weeks with a non-contrast head CT. OK for [facility] for DVT prophylaxis and Q4H NC. [...] CPAP qHS Chronic anticoagulation 02/05/2017 Atrial fibrillation ([facility]/HCC) 09/13/2011 Overview (10/27/2016): Atrial fibrillation Assessment & Plan (01/17/2024 7:25 PM CDT): Paroxysmal. Currently not on anticoagulation due to recent SDH. NSR on presentation. 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) plan for watchman in the future Osteoarthritis Overview (01/10/2024): Osteoarthritis Immunizations Name Administration Dates Next Due Influenza, Quadrivalent, Hig h Dose, Preservative Free, Intrr 06/04/2020 Influenza, Quadrivalent, Spl it, Preservative Free, Intramuscular 07/30/2013 Influenza, Trivalent, High D ose, Split, Preservative Free, Intramuscular 07/03/2019 Social History Tobacco Use Types Packs/Day Years Used Date Smoking Tobacco: Former Cigarettes Passive Smoke Exposure: Past Smokeless Tobacco: Never Tobacco Cessation:Counseling Given: Not Answered Alcohol Use Standard Drinks/Week Comments Yes 6 (1 standard drink = 0.6 oz pur e alcohol) rarely OASIS D0700: Social Isolation Answer Da te Recorded Frequency of experiencing loneliness or isolatio n Never 11/27/2023 OASIS A1250: Transportation Answer Date Recorded Lack of Transportation (Medical) No 11/27/2023 Lack of Transportation (Non-Medical) No 11/27/2023 Patient Unable or Declines to Respond No 11/27/2023 OASIS B1300: Health Literacy Answer Roman e Recorded Frequency of needing help to read materials from doctor or pharmacy Always 11/27/2023 [facility] Utilities Answer Date Recorded In the past 12 months has th e electric, gas, oil, or water [employer] threatened to shut off services in your home? No 12/20/2023 Humiliation, Afraid, Rape, and Kick questionnair e Answer Date Recorded Within the last year, have y ou been afraid of your partner or ex-partner? No 11/21/2023 Within the last year, have y ou been humiliated or emotionally abused in other ways by your partner or ex-partner? No Within the last year, have y ou been kicked, hit, slapped, or otherwise physically hurt by your partner or ex-partner? No 11/21/2023 Within the last year, have y ou been raped or forced to have any kind of sexual activity by your partner or ex-partner? No 11/21/2023 Social Connection and Isolat ion Panel [NHANES] Answer Date Recorded In a typical week, how many times do you talk on the phone with family, friends, or neighbors? More than three times a week 12/20/2023 How often do you get togethe r with friends or relatives? More than three times a week 12/20/2023 How often do you attend chur ch or episcopal services? Never 12/20/2023 Do you belong to any clubs o r organizations such as synagogue groups, unions, fraternal or athletic groups, or school groups? No 12/20/2023 How often do you attend meet ings of the clubs or organizations you belong to? Never 12/20/2023 Are you , , di vorced, , never , or living with a partner? 12/20/2023 AUDIT-C Answer Date Recorded Q1: How often do you have a drink containing alcohol? Never 11/21/2023 Q2: How many drinks containi ng alcohol do you have on a typical day when you are drinking? Patient does not drink Q3: How often do you have si x or more drinks on one occasion? Never 11/21/2023 Overall Financial Resource Strain (CARDIA) Answe r Date Recorded How hard is it for you to pa y for the very basics like food, housing, medical care, and heating? Somewhat hard 12/20/2023 [facility] - Occupational Stress Questionnaire Answer Date Recorded Do you feel stress - tense, restless, nervous, or anxious, or unable to sleep at night because your mind is troubled all the time - these days? Rather much 11/21/2023 Exercise Vital Sign Answer Date Recorde d On average, how many days pe r week do you engage in moderate to strenuous exercise (like a brisk walk)? 0 days 11/21/2023 On average, how many minutes do you engage in exercise at this level? 0 min 11/21/2023 Hunger Vital Sign Answer Date Recorded Within the past 12 months, y ou worried that your food would run out before you got the money to buy more. Never true 12/20/19 24 Within the past 12 months, t he food you bought just didn't last and you didn't have money to get more. Never true 12/20/2023 PRAPARE - Transportation Answer Date Re corded In the past 12 months, has l ack of transportation kept you from medical appointments or from getting medications? No 11/22 In the past 12 months, has l ack of transportation kept you from meetings, work, or from getting things needed for daily living? No 12/20/2023 Housing Stability Vital Sign Answer Roman e Recorded In the last 12 months, was t here a time when you were not able to pay the mortgage or rent on time? No 11/21/2023 In the last 12 months, how many places have you lived? 1 11/21/2023 In the last 12 months, was t here a time when you did not have a steady place to sleep or slept in a usp (including now)? No 11/21/2023 Housing Stability Vital Sign Answer Roman e Recorded In the last 12 months, was t here a time when you were not able to pay the mortgage or rent on time? No 12/20/2023 In the past 12 months, how m any times have you moved where you were living? 1 12/20/2023 At any time in the past 12 m [facility], were you homeless or living in a usp (including now)? No 12/20/2023 Personal Safety Answer Date Recorded Have you ever been in or are you currently in a harmful physical or emotional relationship or is someone making you feel afraid or unsafe? Denies 03/14/2024 Sex and Gender Information Value Date Recorded Sex Assigned at Not on file Legal Sex Male 4:28 AM TROUBLE TRACER Gender Identity Not on file Sexual Orientation Not on file Last Filed Vital Signs Vital Sign Reading Time Taken Comments Blood Pressure 136/55 08/28/2024 7:58 AM TROUBLE TRACER Pulse 88 08/28/2024 7:58 AM TROUBLE TRACER Temperature 36.3 C (97.3 F) 08/28/2024 7:58 AM TROUBLE TRACER Respiratory Rate 18 08/28/2024 7:58 AM TROUBLE TRACER Oxygen Saturation 92% 08/28/2024 7:58 AM TROUBLE TRACER Inhaled Oxygen Concentration - - Weight 77.8 kg (171 lb 9.6 oz) 08/28/2024 7:58 A M TROUBLE TRACER Height 168.9 cm (5' 6.5 ) 08/28/2024 7:58 AM TROUBLE TRACER Body Mass Index 27.28 08/28/2024 7:58 AM TROUBLE TRACER Plan of Treatment Not on file Procedures Procedure Name Priority Date/Time Associated Diagnosis Comments EGFR Routine 08/28/2024 7:48 AM TROUBLE TRACER Metastasis to bone (CMS/HCC) (HCC) Prostate cancer (HCC) DIFFERENTIAL AUTO Routine 08/28/2024 7:4 8 AM TROUBLE TRACER Metastasis to bone (CMS/HCC) (HCC) Prostate cancer (HCC) PSA DIAGNOSTIC Routine 08/28/2024 7:48 AM TROUBLE TRACER Metastasis to bone (CMS/HCC) (HCC) Prostate cancer (HCC) TOTAL TESTOSTERONE Routine 08/28/2024 7: 48 AM TROUBLE TRACER Metastasis to bone (CMS/HCC) (HCC) Prostate cancer (HCC) CBC WITH AUTO DIFFERENTIAL Routine 08/28/2024 7:48 AM TROUBLE TRACER Metastasis to bone (CMS/HCC) (HCC) Prostate cancer (HCC) COMPREHENSIVE METABOLIC PANEL Routine 08/28/2024 7:48 AM TROUBLE TRACER Metastasis to bone (CMS/HCC) (HCC) Prostate cancer (HCC) EGFR Routine 07/25/2024 7:35 AM TROUBLE TRACER Metastasis to bone (CMS/HCC) (HCC) Prostate cancer (HCC) DIFFERENTIAL AUTO Routine 07/25/2024 7:3 5 AM TROUBLE TRACER Metastasis to bone (CMS/HCC) (HCC) Prostate cancer (HCC) CBC WITH AUTO DIFFERENTIAL Routine 07/25/2024 7:35 AM TROUBLE TRACER Metastasis to bone (CMS/HCC) (HCC) Prostate cancer (HCC) COMPREHENSIVE METABOLIC PANEL Routine 07/25/2024 7:35 AM TROUBLE TRACER Metastasis to bone (CMS/HCC) (HCC) Prostate cancer (HCC) DIFFERENTIAL AUTO Routine 07/17/2024 8:0 5 AM TROUBLE TRACER Metastasis to bone (CMS/HCC) (HCC) Prostate cancer (HCC) CBC WITH AUTO DIFFERENTIAL Routine 07/17/2024 8:05 AM TROUBLE TRACER Metastasis to bone (CMS/HCC) (HCC) Prostate cancer (HCC) EGFR Routine 07/17/2024 7:58 AM TROUBLE TRACER Metastasis to bone (CMS/HCC) (HCC) Prostate cancer (HCC) PSA DIAGNOSTIC Routine 07/17/2024 7:58 AM TROUBLE TRACER Metastasis to bone (CMS/HCC) (HCC) Prostate cancer (HCC) TOTAL TESTOSTERONE Routine 07/17/2024 7: 58 AM TROUBLE TRACER Metastasis to bone (CMS/HCC) (HCC) Prostate cancer (HCC) COMPREHENSIVE METABOLIC PANEL Routine 07/17/2024 7:58 AM TROUBLE TRACER Metastasis to bone (CMS/HCC) (HCC) Prostate cancer (HCC) EGFR Routine 07/03/2024 7:25 AM TROUBLE TRACER Metastasis to bone (CMS/HCC) (HCC) Prostate cancer (HCC) COMPREHENSIVE METABOLIC PANEL Routine 07/03/2024 7:25 AM TROUBLE TRACER Metastasis to bone (CMS/HCC) (HCC) Prostate cancer (HCC) MANUAL DIFFERENTIAL Routine 07/03/2024 7 :23 AM TROUBLE TRACER Metastasis to bone (CMS/HCC) (HCC) Prostate cancer (HCC) CBC WITH AUTO DIFFERENTIAL Routine 07/03/2024 7:23 AM TROUBLE TRACER Metastasis to bone (CMS/HCC) (HCC) Prostate cancer (HCC) EGFR Routine 06/26/2024 7:50 AM TROUBLE TRACER Metastasis to bone (CMS/HCC) (HCC) Prostate cancer (HCC) DIFFERENTIAL AUTO Routine 06/26/2024 7:5 0 AM TROUBLE TRACER Metastasis to bone (CMS/HCC) (HCC) Prostate cancer (HCC) CBC WITH AUTO DIFFERENTIAL Routine 06/26/2024 7:50 AM TROUBLE TRACER Metastasis to bone (CMS/HCC) (HCC) Prostate cancer (HCC) TOTAL TESTOSTERONE Routine 06/26/2024 7: 50 AM TROUBLE TRACER Metastasis to bone (CMS/HCC) (HCC) Prostate cancer (HCC) PSA DIAGNOSTIC Routine 06/26/2024 7:50 AM TROUBLE TRACER Metastasis to bone (CMS/HCC) (HCC) Prostate cancer (HCC) COMPREHENSIVE METABOLIC PANEL Routine 06/26/2024 7:50 AM TROUBLE TRACER Metastasis to bone (CMS/HCC) (HCC) Prostate cancer (HCC) EGFR STAT 06/12/2024 8:20 AM TROUBLE TRACER Metastasis to bone (CMS/HCC) (HCC) Prostate cancer (HCC) COMPREHENSIVE METABOLIC PANEL STAT 06/12/2024 8:20 AM TROUBLE TRACER Metastasis to bone (CMS/HCC) (HCC) Prostate cancer (HCC) DIFFERENTIAL AUTO Routine 06/12/2024 7:2 4 AM TROUBLE TRACER Metastasis to bone (CMS/HCC) (HCC) Prostate cancer (HCC) CBC WITH AUTO DIFFERENTIAL Routine 06/12/2024 7:24 AM TROUBLE TRACER Metastasis to bone (CMS/HCC) (HCC) Prostate cancer (HCC) EGFR Routine 06/05/2024 8:47 AM TROUBLE TRACER Metastasis to bone (CMS/HCC) (HCC) Prostate cancer (HCC) DIFFERENTIAL AUTO Routine 06/05/2024 8:4 7 AM TROUBLE TRACER Metastasis to bone (CMS/HCC) (HCC) Prostate cancer (HCC) PSA DIAGNOSTIC Routine 06/05/2024 8:47 AM TROUBLE TRACER Metastasis to bone (CMS/HCC) (HCC) Prostate cancer (HCC) TOTAL TESTOSTERONE Routine 06/05/2024 8: 47 AM TROUBLE TRACER Metastasis to bone (CMS/HCC) (HCC) Prostate cancer (HCC) CBC WITH AUTO DIFFERENTIAL Routine 06/05/2024 8:47 AM TROUBLE TRACER Metastasis to bone (CMS/HCC) (HCC) Prostate cancer (HCC) COMPREHENSIVE METABOLIC PANEL Routine 06/05/2024 8:47 AM TROUBLE TRACER Metastasis to bone (CMS/HCC) (HCC) Prostate cancer (HCC) CT CHEST ABDOMEN PELVIS W CONTRAST Schedule Routine, Read Routine (OP Routine) 2024 7:47 AM CDT Metastasis to bone (CMS/HCC) (HCC) Prostate cancer (HCC) from Last 3 Months or Most Recently Relevant to Health Maintenance Results * eGFR (08/28/2024 7:48 AM TROUBLE TRACER) eGFR 74 >=60 mL/min/1. 73 m2 Comment: Interpretive Data Reference Interval Normal >/= 90 mL/min/1.73m2 Mildly decreased* 60 - 89 mL/min/1.73m2 Mildly to moderately decreased 45 - 59 mL/min/1.73m2 Moderately to severely decreased 30 - 44 mL/min/1.73m2 Severely decreased 15 - 29 mL/min/1.73m2 Kidney Failure < 15 mL/min/1.73m2 *Relative to young adult level Estimated glomerular filtration rate is determined by the 2020 CKD-EPI equation recommended by the National Kid[employer] Foundation (A Unifying Approach to GFR Estimation: Recommendations of the NKF-ASK Task Force on Reassessing the Inclusion of Race in Diagnosing Kidney Disease, JASN 2020). The CKD-EPI equation should not be used for patients with unstable renal function and has not been validated in children and those over 70. Current interpretive data was last reviewed 2021. Blood 08/28/2024 7:48 AM TROUBLE TRACER 08/28/2024 7:58 AM TROUBLE TRACER us Devon Carlin MD LAB BLOOD ORDERABLES Fin al Result [facility] Department [place] [address] * (ABNORMAL) Differential, auto (08/28/2024 7:48 AM TROUBLE TRACER) Neutrophil abs 6.6(H) 1.5 - 6.5 K/cumm Comment:Testing performed by : [facility], [address] [place], [place] [phone] Lymphocyte abs 1.5 0.8 - 3.3 K/cumm CERNER BJ Comment:Testing performed by : [facility], [address] [place] [phone] Monocyte abs 0.4 0.2 - 0.8 K/cumm CERNER BJ Comment:Testing performed by : [facility], [address] [place] [phone] Eosinophil abs 0.0 0.0 - 0.5 K/cumm CERNER BJ Comment:Testing performed by : [facility], [address] [place] [phone] Basophil abs 0.1 0.0 - 0.1 K/cumm CERNER BJ Comment:Testing performed by : [facility], [address] [place], [place] [phone] Neutrophil pct 76.8 % CERNER BJ Comment: Interpretive Data Percent cell count reference ranges are not reported, since discordance with absolute values may lead to misinterpretation of CBC data. Current Interpretive Data was last revised on 2017. Testing performed by: [facility], [address] [place] [phone] Lymphocyte pct 17.0 % CERGENE [facility] Comment: Interpretive Data Percent cell count reference ranges are not reported, since discordance with absolute values may lead to misinterpretation of CBC data. Current Interpretive Data was last revised on 2017. Testing performed by: [facility], [address] [place] [phone] Monocyte pct 4.9 % NERY HUSAIN Comment: Interpretive Data Percent cell count reference ranges are not reported, since discordance with absolute values may lead to misinterpretation of CBC data. Current Interpretive Data was last revised on 2017. Testing performed by: [facility], [address] [place], [place] [phone] Eosinophil pct 0.4 % NERY HUSAIN Comment: Interpretive Data Percent cell count reference ranges are not reported, since discordance with absolute values may lead to misinterpretation of CBC data. Current Interpretive Data was last revised on 2017. Testing performed by: [facility], [address] [place] [phone] Basophil pct 0.9 % NERY HUSAIN Comment: Interpretive Data Percent cell count reference ranges are not reported, since discordance with absolute values may lead to misinterpretation of CBC data. Current Interpretive Data was last revised on 2017. Testing performed by: [facility], [address] [place] [phone] Blood 08/28/2024 7:48 AM TROUBLE TRACER 08/28/2024 8:00 AM TROUBLE TRACER us Devon Carlin MD LAB BLOOD ORDERABLES Fin al Result NERY HUSAIN [facility] [place] [address] * (ABNORMAL) CBC with auto differential (08/28/2024 7:48 AM TROUBLE TRACER) WBC 8.6 3.8 - 9.9 K/cumm Comment:Testing performed by : [facility], [address] [place] [address] Hgb 9.5(L) 13.0 - 17.5 g/dL CERNER BJ Comment:Testing performed by : [facility], [address] [place] [address] Hct 29.4(L) 38.9 - 50.3 % CERNER BJ Comment:Testing performed by : [facility], [address] [place] [address] Plt 568(H) 150 - 400 K/cumm CERNER BJ Comment:Testing performed by : [facility], [address] [place] [address] MPV 7.2 6.8 - 10.4 fL CERNER BJ Comment:Testing performed by : [facility], [address] [place] [address] RBC 3.52(L) 4.30 - 5.80 M/cumm CERNER BJ Comment:Testing performed by : [facility], [address] [place] [address] MCV 83.5 81.3 - 96.4 fL CERNER BJ Comment:Testing performed by : [facility], [address] [place] [address] MCH 27.0(L) 27.1 - 33.3 pg CERNER BJ Comment:Testing performed by : [facility], [address] [place] [address] MCHC 32.4 32.3 - 35.7 g/dL CERNER BJ Comment:Testing performed by : [facility], [address] [place] [address] RDW CV 19.4(H) 11.1 - 14.9 % CERNER BJ Comment:Testing performed by : [facility], [address] [place] [address] NRBC abs 0.00 0.00 - 0.01 K/cumm CERNER BJ Comment:Testing performed by : [facility], [address] [place] [address] Blood 08/28/2024 7:48 AM TROUBLE TRACER 08/28/2024 8:00 AM TROUBLE TRACER Devon Carlin MD LAB BLOOD ORDERABLES Fin al Result Performing Organization Address City/[facility] Co de Phone Number NERY [facility] [place] [address] * (ABNORMAL) Total testosterone (08/28/2024 7:48 AM TROUBLE TRACER) Testosterone <5.0(L) 193.0 - 740.0 ng/dL Blood 08/28/2024 7:48 AM TROUBLE TRACER 08/28/2024 8:20 AM TROUBLE TRACER Devon Carlin MD LAB BLOOD ORDERABLES Fin al Result Performing Organization Address [facility] de Phone Number [facility] [place] [address] * (ABNORMAL) PSA diagnostic (08/28/2024 7:48 AM TROUBLE TRACER) PSA-Total 188.00(H) <=6.20 ng/mL Comment: Interpretive Data AGE SEX REFERENCE INTERVAL 0 minutes-150 years Female None 0 minutes-49 years Male None 50-59 years Male 0-3.90 60-69 years Male 0-5.40 70-79 years Male 0-6.20 80-150 years Male 0-6.20 The Isabel PSA Total assay procedure was used. Results from different manufacturers or methods may not be comparable. Serial testing should be performed using the same method. Current interpretive data last revised 21. Blood 08/28/2024 7:48 AM TROUBLE TRACER 08/28/2024 7:58 AM TROUBLE TRACER Devon Carlin MD LAB BLOOD ORDERABLES Fin al Result Performing Organization Address [facility] Co de Phone Number [facility] [place] [address] * (ABNORMAL) Comprehensive metabolic panel (08/28/2024 7:48 AM TROUBLE TRACER) Sodium 140 135 - 145 mmol/L Potassium, pl 4.4 3.3 - 4.9 mmol/L [facility] Chloride 100 97 - 110 mmol/L [facility] CO2 29 22 - 32 mmol/L [facility] Anion gap 11 2 - 15 mmol/L [facility] BUN 23 6 - 25 mg/dL [facility] Creatinine 1.03 0.80 - 1.30 mg/dL [facility] Glucose 166 70 - 199 mg/dL [facility] Comment: Interpretive Data Fasting glucose >/= 126 mg/dl is diagnostic for diabetes. Fasting is defined as no caloric intake for at least 8 hours. Fasting glucose between 100 mg/dl to 125 mg/dl is diagnostic of prediabetes. In a patient with classic symptoms of hyperglycemia or hyperglycemic crisis, a random glucose >/= 200 mg/dl is diagnostic for diabetes. In the absence of unequivocal hyperglycemia, results should be confirmed by repeat testing. The classification and Diagnosis of Diabetes Diabetes Care 2021; 46: S19-S40. Current interpretive data was last revised 2022. Calcium 9.7 8.5 - 10.3 mg/dL [facility] Bilirubin, total 0.3 0.1 - 1.2 mg/dL [facility] Protein, pl 7.1 6.5 - 8.5 g/dL [facility] Albumin 3.4(L) 3.5 - 5.0 g/dL [facility] Alk phos 411(H) 40 - 130 Units/L [facility] ALT 38 7 - 55 Units/L [facility] AST 36 10 - 50 Units/L [facility] Blood 08/28/2024 7:48 AM TROUBLE TRACER 08/28/2024 7:58 AM TROUBLE TRACER us Devon Carlin MD LAB BLOOD ORDERABLES Fin al Result [facility] [place] [address] * eGFR (07/25/2024 7:35 AM TROUBLE TRACER) Pathologist [facility] eGFR 67 >=60 mL/min/1. 73 m2 Comment: Interpretive Data Reference Interval Normal >/= 90 mL/min/1.73m2 Mildly decreased* 60 - 89 mL/min/1.73m2 Mildly to moderately decreased 45 - 59 mL/min/1.73m2 Moderately to severely decreased 30 - 44 mL/min/1.73m2 Severely decreased 15 - 29 mL/min/1.73m2 Kidney Failure < 15 mL/min/1.73m2 *Relative to young adult level Estimated glomerular filtration rate is determined by the 2020 CKD-EPI equation recommended by the National Kidney Foundation (A Unifying Approach to GFR Estimation: Recommendations of the NKF-ASK Task Force on Reassessing the Inclusion of Race in Diagnosing Kidney Disease, JASN 2020). The CKD-EPI equation should not be used for patients with unstable renal function and has not been validated in children and those over 70. Current interpretive data was last reviewed 2021. Blood 07/25/2024 7:35 AM TROUBLE TRACER 07/25/2024 7:40 AM TROUBLE TRACER us Devon Carlin MD LAB BLOOD ORDERABLES Fin al Result NERY HUSAIN [facility] [place] [address] * (ABNORMAL) Differential, auto (07/25/2024 7:35 AM TROUBLE TRACER) [facility] Neutrophil abs 5.7 1.5 - 6.5 K/cumm Comment:Testing performed by : [facility], [address] [place] [phone] Lymphocyte abs 1.3 0.8 - 3.3 K/cumm NERY HUSAIN Comment:Testing performed by : [facility], [address] [place] [phone] Monocyte abs 0.3 0.2 - 0.8 K/cumm NERY HUSAIN Comment:Testing performed by : [facility], [address] [place] [phone] Eosinophil abs 0.1 0.0 - 0.5 K/cumm CERNER [facility] Comment:Testing performed by : [facility], [address] [place] [phone] Basophil abs 0.2(H) 0.0 - 0.1 K/cumm CERNER [facility] Comment:Testing performed by : [facility], [address] [place] [phone] Neutrophil pct 75.6 % CERNER [facility] Comment: Interpretive Data Percent cell count reference ranges are not reported, since discordance with absolute values may lead to misinterpretation of CBC data. Current Interpretive Data was last revised on 2017. Testing performed by: [facility], [address] [place] [phone] Lymphocyte pct 16.5 % CERNER [facility] Comment: Interpretive Data Percent cell count reference ranges are not reported, since discordance with absolute values may lead to misinterpretation of CBC data. Current Interpretive Data was last revised on 2017. Testing performed by: [facility], [address] [place] [phone] Monocyte pct 4.2 % CERNER [facility] Comment: Interpretive Data Percent cell count reference ranges are not reported, since discordance with absolute values may lead to misinterpretation of CBC data. Current Interpretive Data was last revised on 2017. Testing performed by: [facility], [address] [place] [phone] Eosinophil pct 1.7 % CERNER [facility] Comment: Interpretive Data Percent cell count reference ranges are not reported, since discordance with absolute values may lead to misinterpretation of CBC data. Current Interpretive Data was last revised on 2017. Testing performed by: [facility], [address] [place] [phone] Basophil pct 2.0 % CERNER [facility] Comment: Interpretive Data Percent cell count reference ranges are not reported, since discordance with absolute values may lead to misinterpretation of CBC data. Current Interpretive Data was last revised on 2017. Testing performed by: [facility], [address] [place], [place] [phone] Blood 07/25/2024 7:35 AM TROUBLE TRACER 07/25/2024 7:37 AM TROUBLE TRACER us Devon Carlin MD LAB BLOOD ORDERABLES Fin al Result [facility] [place] [address] * (ABNORMAL) CBC with auto differential (07/25/2024 7:35 AM TROUBLE TRACER) WBC 7.6 3.8 - 9.9 K/cumm Comment:Testing performed by : [facility], [address] [place] [address] Hgb 9.2(L) 13.0 - 17.5 g/dL CERGENE BJ Comment:Testing performed by : [facility], [address] [place] [address] Hct 28.3(L) 38.9 - 50.3 % CERGENE BJ Comment:Testing performed by : [facility], [address] [place] [address] Plt 448(H) 150 - 400 K/cumm CERGENE BJ Comment:Testing performed by : [facility], [address] [place] [address] MPV 6.8 6.8 - 10.4 fL CERGENE BJ Comment:Testing performed by : [facility], [address] [place] [address] RBC 3.28(L) 4.30 - 5.80 M/cumm CERGENE BJ Comment:Testing performed by : [facility], [address] [place] [address] MCV 86.2 81.3 - 96.4 fL CERGENE BJ Comment:Testing performed by : [facility], [address] [place] [address] MCH 28.2 27.1 - 33.3 pg CERGENE BJ Comment:Testing performed by : [facility], [address] [place] [phone] MCHC 32.7 32.3 - 35.7 g/dL [facility] Comment:Testing performed by : [facility], [address] [place] [address] RDW CV 19.3(H) 11.1 - 14.9 % [facility] Comment:Testing performed by : [facility], [address] [place] [address] NRBC abs 0.10(H) 0.00 - 0.01 K/cumm NERY [facility] Comment:Testing performed by : [facility], [address] [place] [phone] Blood 07/25/2024 7:35 AM TROUBLE TRACER 07/25/2024 7:37 AM TROUBLE TRACER us Devon Carlin MD LAB BLOOD ORDERABLES Fin al Result [facility] [place] [address] * (ABNORMAL) Comprehensive metabolic panel (07/25/2024 7:35 AM TROUBLE TRACER) Sodium 139 135 - 145 mmol/L Potassium, pl 4.4 3.3 - 4.9 mmol/L [facility] Chloride 103 97 - 110 mmol/L [facility] CO2 27 22 - 32 mmol/L [facility] Anion gap 9 2 - 15 mmol/L [facility] BUN 19 6 - 25 mg/dL [facility] Creatinine 1.12 0.80 - 1.30 mg/dL [facility] Glucose 151 70 - 199 mg/dL [facility] Comment: Interpretive Data Fasting glucose >/= 126 mg/dl is diagnostic for diabetes. Fasting is defined as no caloric intake for at least 8 hours. Fasting glucose between 100 mg/dl to 125 mg/dl is diagnostic of prediabetes. In a patient with classic symptoms of hyperglycemia or hyperglycemic crisis, a random glucose >/= 200 mg/dl is diagnostic for diabetes. In the absence of unequivocal hyperglycemia, results should be confirmed by repeat testing. The classification and Diagnosis of Diabetes Diabetes Care 2021; 46: S19-S40. Current interpretive data was last revised 2022. Calcium 9.3 8.5 - 10.3 mg/dL CERNER [facility] Bilirubin, total 0.4 0.1 - 1.2 mg/dL CERNER [facility] Protein, pl 6.4(L) 6.5 - 8.5 g/dL CERNER [facility] Albumin 3.5 3.5 - 5.0 g/dL CERNER [facility] Alk phos 350(H) 40 - 130 Units/L CERNER [facility] ALT 16 7 - 55 Units/L CERNER [facility] AST 21 10 - 50 Units/L [facility] Blood 07/25/2024 7:35 AM TROUBLE TRACER 07/25/2024 7:40 AM TROUBLE TRACER us Devon Carlin MD LAB BLOOD ORDERABLES Fin al Result [facility] [place] [address] * Differential, auto (07/17/2024 8:05 AM TROUBLE TRACER) Neutrophil abs 5.1 1.5 - 6.5 K/cumm Comment:Testing performed by : [facility], [address] [place] [phone] Lymphocyte abs 1.3 0.8 - 3.3 K/cumm CERNER [facility] Comment:Testing performed by : [facility], [address] [place] [phone] Monocyte abs 0.4 0.2 - 0.8 K/cumm CERNER BJ Comment:Testing performed by : [facility], [address] [place] [phone] Eosinophil abs 0.0 0.0 - 0.5 K/cumm CERNER BJ Comment:Testing performed by : [facility], [address] [place] [phone] Basophil abs 0.1 0.0 - 0.1 K/cumm CERNER BJ Comment:Testing performed by : [facility], [address] [place] [phone] Neutrophil pct 74.1 % CERNER BJ Comment: Interpretive Data Percent cell count reference ranges are not reported, since discordance with absolute values may lead to misinterpretation of CBC data. Current Interpretive Data was last revised on 2017. Testing performed by: [facility], [address] [place] [phone] Lymphocyte pct 19.1 % CERNER BJ Comment: Interpretive Data Percent cell count reference ranges are not reported, since discordance with absolute values may lead to misinterpretation of CBC data. Current Interpretive Data was last revised on 2017. Testing performed by: [facility], [address] [place] [phone] Monocyte pct 5.6 % CERNER BJ Comment: Interpretive Data Percent cell count reference ranges are not reported, since discordance with absolute values may lead to misinterpretation of CBC data. Current Interpretive Data was last revised on 2017. Testing performed by: [facility], [address] [place] [phone] Eosinophil pct 0.4 % CERNER BJ Comment: Interpretive Data Percent cell count reference ranges are not reported, since discordance with absolute values may lead to misinterpretation of CBC data. Current Interpretive Data was last revised on 2017. Testing performed by: [facility], [address] [place] [phone] Basophil pct 0.8 % CERNER BJ Comment: Interpretive Data Percent cell count reference ranges are not reported, since discordance with absolute values may lead to misinterpretation of CBC data. Current Interpretive Data was last revised on 2017. Testing performed by: [facility], [address] [place] [phone] Blood 07/17/2024 8:05 AM TROUBLE TRACER 07/17/2024 8:06 AM TROUBLE TRACER us eDvon Carlin MD LAB BLOOD ORDERABLES Fin al Result NERY [facility] [place] [address] * (ABNORMAL) CBC with auto differential (07/17/2024 8:05 AM TROUBLE TRACER) WBC 6.9 3.8 - 9.9 K/cumm Comment:Testing performed by : [facility], [address] [place] [address] Hgb 9.8(L) 13.0 - 17.5 g/dL CERGENE HUSAIN Comment:Testing performed by : [facility], [address] [place] [address] Hct 30.1(L) 38.9 - 50.3 % CERGENE HUSAIN Comment:Testing performed by : [facility], [address] [place] [address] Plt 441(H) 150 - 400 K/cumm CERGENE [facility] Comment:Testing performed by : [facility], [address] [place] [address] MPV 6.6(L) 6.8 - 10.4 fL CERGENE [facility] Comment:Testing performed by : [facility], [address] [place] [address] RBC 3.45(L) 4.30 - 5.80 M/cumm CERGENE [facility] Comment:Testing performed by : [facility], [address] [place] [address] MCV 87.2 81.3 - 96.4 fL CERGENE [facility] Comment:Testing performed by : [facility], [address] [place] [address] MCH 28.4 27.1 - 33.3 pg CERGENE BJ Comment:Testing performed by : [facility], [address] [place] [address] MCHC 32.6 32.3 - 35.7 g/dL CERGENE BJ Comment:Testing performed by : [facility], [address] [place] [address] RDW CV 18.8(H) 11.1 - 14.9 % [facility] Comment:Testing performed by : [facility], [address] [place] [phone] NRBC abs 0.10(H) 0.00 - 0.01 K/cumm NERY [facility] Comment:Testing performed by : [facility], [address] [place] [phone] Blood 07/17/2024 8:05 AM TROUBLE TRACER 07/17/2024 8:06 AM TROUBLE TRACER Devon Carlin MD LAB BLOOD ORDERABLES Fin al Result Performing Organization Address City/State/[facility] Co de Phone Number [facility] [place] [address] * eGFR (07/17/2024 7:58 AM TROUBLE TRACER) eGFR 63 >=60 mL/min/1. 73 m2 Comment: Interpretive Data Reference Interval Normal >/= 90 mL/min/1.73m2 Mildly decreased* 60 - 89 mL/min/1.73m2 Mildly to moderately decreased 45 - 59 mL/min/1.73m2 Moderately to severely decreased 30 - 44 mL/min/1.73m2 Severely decreased 15 - 29 mL/min/1.73m2 Kidney Failure < 15 mL/min/1.73m2 *Relative to young adult level Estimated glomerular filtration rate is determined by the 2020 CKD-EPI equation recommended by the National Kidney Foundation (A Unifying Approach to GFR Estimation: Recommendations of the NKF-ASK Task Force on Reassessing the Inclusion of Race in Diagnosing Kidney Disease, JASN 202). The CKD-EPI equation should not be used for patients with unstable renal function and has not been validated in children and those over 70. Current interpretive data was last reviewed 2021. Blood 07/17/2024 7:58 AM TROUBLE TRACER 07/17/2024 8:07 AM TROUBLE TRACER Devon Carlin MD LAB BLOOD ORDERABLES Fin al Result Performing Organization Address City/State/[facility] Co de Phone Number [facility] [place] [address] * (ABNORMAL) Total testosterone (07/17/2024 7:58 AM TROUBLE TRACER) Testosterone <5.0(L) 193.0 - 740.0 ng/dL Blood 07/17/2024 7:58 AM TROUBLE TRACER 07/17/2024 8:21 AM TROUBLE TRACER Devon Carlin MD LAB BLOOD ORDERABLES Fin al Result Performing Organization Address [facility] Co de Phone Number NERY [facility] [place] [address] * (ABNORMAL) PSA diagnostic (07/17/2024 7:58 AM TROUBLE TRACER) PSA-Total 132.00(H) <=6.20 ng/mL Comment: Interpretive Data AGE SEX REFERENCE INTERVAL 0 minutes-150 years Female None 0 minutes-49 years Male None 50-59 years Male 0-3.90 60-69 years Male 0-5.40 70-79 years Male 0-6.20 80-150 years Male 0-6.20 The Isabel PSA Total assay procedure was used. Results from different manufacturers or methods may not be comparable. Serial testing should be performed using the same method. Current interpretive data last revised 21. Blood 07/17/2024 7:58 AM TROUBLE TRACER 07/17/2024 8:07 AM TROUBLE TRACER Devon Carlin MD LAB BLOOD ORDERABLES Fin al Result Performing Organization Address [facility] Co de Phone Number NERY [facility] [place] [address] * (ABNORMAL) Comprehensive metabolic panel (07/17/2024 7:58 AM TROUBLE TRACER) Sodium 142 135 - 145 mmol/L Potassium, pl 3.8 3.3 - 4.9 mmol/L [facility] Chloride 105 97 - 110 mmol/L [facility] CO2 26 22 - 32 mmol/L [facility] Anion gap 11 2 - 15 mmol/L [facility] BUN 19 6 - 25 mg/dL [facility] Creatinine 1.18 0.80 - 1.30 mg/dL [facility] Glucose 184 70 - 199 mg/dL [facility] Comment: Interpretive Data Fasting glucose >/= 126 mg/dl is diagnostic for diabetes. Fasting is defined as no caloric intake for at least 8 hours. Fasting glucose between 100 mg/dl to 125 mg/dl is diagnostic of prediabetes. In a patient with classic symptoms of hyperglycemia or hyperglycemic crisis, a random glucose >/= 200 mg/dl is diagnostic for diabetes. In the absence of unequivocal hyperglycemia, results should be confirmed by repeat testing. The classification and Diagnosis of Diabetes Diabetes Care 202; 46: S19-S40. Current interpretive data was last revised 2022. Calcium 9.3 8.5 - 10.3 mg/dL [facility] Bilirubin, total 0.5 0.1 - 1.2 mg/dL [facility] Protein, pl 6.8 6.5 - 8.5 g/dL [facility] Albumin 3.6 3.5 - 5.0 g/dL [facility] Alk phos 353(H) 40 - 130 Units/L [facility] ALT 12 7 - 55 Units/L [facility] AST 21 10 - 50 Units/L [facility] Blood 07/17/2024 7:58 AM TROUBLE TRACER 07/17/2024 8:07 AM TROUBLE TRACER us Devon Carlin MD LAB BLOOD ORDERABLES Fin al Result [facility] One [facility] [place] [address] * eGFR (07/03/2024 7:25 AM TROUBLE TRACER) eGFR 60 >=60 mL/min/1. 73 m2 Comment: Interpretive Data Reference Interval Normal >/= 90 mL/min/1.73m2 Mildly decreased* 60 - 89 mL/min/1.73m2 Mildly to moderately decreased 45 - 59 mL/min/1.73m2 Moderately to severely decreased 30 - 44 mL/min/1.73m2 Severely decreased 15 - 29 mL/min/1.73m2 Kidney Failure < 15 mL/min/1.73m2 *Relative to young adult level Estimated glomerular filtration rate is determined by the 2020 CKD-EPI equation recommended by the National Kidney Foundation (A Unifying Approach to GFR Estimation: Recommendations of the NKF-ASK Task Force on Reassessing the Inclusion of Race in Diagnosing Kidney Disease, JASN 2020). The CKD-EPI equation should not be used for patients with unstable renal function and has not been validated in children and those over 70. Current interpretive data was last reviewed 2021. Blood 07/03/2024 7:25 AM TROUBLE TRACER 07/03/2024 7:27 AM TROUBLE TRACER us Devon Carlin MD LAB BLOOD ORDERABLES Fin al Result [facility] [place] [address] * (ABNORMAL) Comprehensive metabolic panel (07/03/2024 7:25 AM TROUBLE TRACER) Sodium 137 135 - 145 mmol/L Potassium, pl 4.7 3.3 - 4.9 mmol/L [facility] Chloride 103 97 - 110 mmol/L [facility] CO2 28 22 - 32 mmol/L [facility] Anion gap 6 2 - 15 mmol/L [facility] BUN 22 6 - 25 mg/dL [facility] Creatinine 1.22 0.80 - 1.30 mg/dL [facility] Glucose 129 70 - 199 mg/dL [facility] Comment: Interpretive Data Fasting glucose >/= 126 mg/dl is diagnostic for diabetes. Fasting is defined as no caloric intake for at least 8 hours. Fasting glucose between 100 mg/dl to 125 mg/dl is diagnostic of prediabetes. In a patient with classic symptoms of hyperglycemia or hyperglycemic crisis, a random glucose >/= 200 mg/dl is diagnostic for diabetes. In the absence of unequivocal hyperglycemia, results should be confirmed by repeat testing. The classification and Diagnosis of Diabetes Diabetes Care 2021; 46: S19-S40. Current interpretive data was last revised 2022. Calcium 9.5 8.5 - 10.3 mg/dL [facility] Bilirubin, total 0.3 0.1 - 1.2 mg/dL [facility] Protein, pl 6.5 6.5 - 8.5 g/dL [facility] Albumin 3.6 3.5 - 5.0 g/dL [facility] Alk phos 443(H) 40 - 130 Units/L [facility] ALT 18 7 - 55 Units/L [facility] AST 25 10 - 50 Units/L [facility] Blood 07/03/2024 7:25 AM TROUBLE TRACER 07/03/2024 7:27 AM TROUBLE TRACER us Devon Carlin MD LAB BLOOD ORDERABLES Fin al [facility] [place] [address] * (ABNORMAL) CBC with auto differential (07/03/2024 7:23 AM TROUBLE TRACER) WBC 8.0 3.8 - 9.9 K/cumm Comment:Testing performed by : [facility], [address] [place] [phone] Hgb 9.6(L) 13.0 - 17.5 g/dL [facility] Comment:Testing performed by : [facility], [address] [place] [phone] Hct 29.9(L) 38.9 - 50.3 % [facility] Comment:Testing performed by : [facility], [address] [place] [phone] Plt 384 150 - 400 K/cumm [facility] Comment:Testing performed by : [facility], [address] [place] [phone] MPV 7.2 6.8 - 10.4 fL [facility]ERGENE [facility] Comment:Testing performed by : [facility], [address] [place] [address] RBC 3.33(L) 4.30 - 5.80 M/cumm NERY HUSAIN Comment:Testing performed by : [facility], [address] [place] [address] MCV 89.7 81.3 - 96.4 fL [facility] Comment:Testing performed by : [facility], [address] [place], [place] [phone] MCH 28.9 27.1 - 33.3 pg [facility] Comment:Testing performed by : [facility], [address] [place] [address] MCHC 32.2(L) 32.3 - 35.7 g/dL [facility] Comment:Testing performed by : [facility], [address] [place] [address] RDW CV 18.4(H) 11.1 - 14.9 % [facility] Comment:Testing performed by : [facility], [address] [place] [address] NRBC abs 0.00 0.00 - 0.01 K/cumm NERY [facility] Comment:Testing performed by : [facility], [address] [place] [address] Blood 07/03/2024 7:23 AM TROUBLE TRACER 07/03/2024 7:27 AM TROUBLE TRACER us Devon Carlin MD LAB BLOOD ORDERABLES Fin al Result [facility] Department of Laboratories [place], [place] [id number] * (ABNORMAL) Manual Differential (07/03/2024 7:23 AM TROUBLE TRACER) Cells Counted 199 Comment:Testing performed by : [facility], [address] [place] [address] Neutrophil abs 6.1 1.5 - 6.5 K/cumm [facility] Comment:Testing performed by : [facility], [address] [place] [phone] Lymphocyte abs 1.0 0.8 - 3.3 K/cumm [facility] Comment:Testing performed by : [facility], [address] [place] [phone] Monocyte abs 0.2 0.2 - 0.8 K/cumm [facility] Comment:Testing performed by : [facility], [address] [place] [phone] Eosinophil abs 0.5 0.0 - 0.5 K/cumm [facility] Comment:Testing performed by : [facility], [address] [place] [phone] Basophil abs 0.1 0.0 - 0.1 K/cumm [facility] Comment:Testing performed by : [facility], [address] [place] [address] Neutrophil pct 76.0 % [facility] Comment: Interpretive Data Percent cell count reference ranges are not reported, since discordance with absolute values may lead to misinterpretation of CBC data. Current Interpretive Data was last revised on 2017. Testing performed by: [facility], [address] [place] [phone] Lymphocyte pct 12.0 % [facility] Comment: Interpretive Data Percent cell count reference ranges are not reported, since discordance with absolute values may lead to misinterpretation of CBC data. Current Interpretive Data was last revised on 2017. Testing performed by: [facility], [address] [place] [phone] Monocyte pct 2.0 % [facility] Comment: Interpretive Data Percent cell count reference ranges are not reported, since discordance with absolute values may lead to misinterpretation of CBC data. Current Interpretive Data was last revised on 2017. Testing performed by: [facility], [address] [place] [phone] Eosinophil pct 6.0 % [facility] Comment: Interpretive Data Percent cell count reference ranges are not reported, since discordance with absolute values may lead to misinterpretation of CBC data. Current Interpretive Data was last revised on 2017. Testing performed by: [facility], [address] [place], [place] [id number] Basophil pct 1.0 % [facility] Comment: Interpretive Data Percent cell count reference ranges are not reported, since discordance with absolute values may lead to misinterpretation of CBC data. Current Interpretive Data was last revised on 2017. Testing performed by: [facility], [address] [place], [place] [phone] Metamyelocyte pct 3.0 % [facility] Comment:Testing performed by : [facility], [address] [place], [place] [phone] Myelocyte pct 1.0 % [facility] Comment:Testing performed by : [facility], [address] [place], [place] [phone] RBC morphology NRBCs present(A) [facility] Comment:Testing performed by : [facility], [address] [place] [phone] Polychromasia 1+(A) [facility] Comment:Testing performed by : [facility], [address] [place] [phone] Anisocytosis 1+(A) [facility] Comment:Testing performed by : [facility], [address] [place], [place] [phone] Microcytes 1+(A) [facility] Comment:Testing performed by : [facility], [address] [place], [place] [phone] Macrocytes 1+(A) [facility] Comment:Testing performed by : [facility], [address] [place], [place] [phone] Platelet estimate Adequate [facility] Comment:Testing performed by : [facility], [address] [place] [phone] Blood 07/03/2024 7:23 AM TROUBLE TRACER 07/03/2024 7:27 AM TROUBLE TRACER us Devon Carlin MD LAB BLOOD ORDERABLES Fin al Result Performing Organization Address City/[facility] Co de Phone Number [facility] [place] [address] * eGFR (06/26/2024 7:50 AM TROUBLE TRACER) eGFR 67 >=60 mL/min/1. 73 m2 Comment: Interpretive Data Reference Interval Normal >/= 90 mL/min/1.73m2 Mildly decreased* 60 - 89 mL/min/1.73m2 Mildly to moderately decreased 45 - 59 mL/min/1.73m2 Moderately to severely decreased 30 - 44 mL/min/1.73m2 Severely decreased 15 - 29 mL/min/1.73m2 Kidney Failure < 15 mL/min/1.73m2 *Relative to young adult level Estimated glomerular filtration rate is determined by the 2020 CKD-EPI equation recommended by the National Kidney Foundation (A Unifying Approach to GFR Estimation: Recommendations of the NKF-ASK Task Force on Reassessing the Inclusion of Race in Diagnosing Kidney Disease, JASN 2020). The CKD-EPI equation should not be used for patients with unstable renal function and has not been validated in children and those over 70. Current interpretive data was last reviewed 2021. Blood 06/26/2024 7:50 AM TROUBLE TRACER 06/26/2024 7:57 AM TROUBLE TRACER Devon Carlin MD LAB BLOOD ORDERABLES Fin al Result Performing Organization Address [facility] Co de Phone Number NERY HUSAIN [facility] [place] [address] * Differential, auto (06/26/2024 7:50 AM TROUBLE TRACER) Neutrophil abs 5.5 1.5 - 6.5 K/cumm Comment:Testing performed by : [facility], [address] [place] [phone] Lymphocyte abs 1.7 0.8 - 3.3 K/cumm NERY [facility] Comment:Testing performed by : [facility], [address] [place] [phone] Monocyte abs 0.4 0.2 - 0.8 K/cumm [facility] Comment:Testing performed by : [facility], [address] [place] [address] Eosinophil abs 0.1 0.0 - 0.5 K/cumm [facility] Comment:Testing performed by : [facility], [facility] [place] [address] Basophil abs 0.1 0.0 - 0.1 K/cumm [facility] Comment:Testing performed by : [facility], [address] [place] [phone] Neutrophil pct 70.1 % [facility] Comment: Interpretive Data Percent cell count reference ranges are not reported, since discordance with absolute values may lead to misinterpretation of CBC data. Current Interpretive Data was last revised on 2017. Testing performed by: [facility], [address] [place] [phone] Lymphocyte pct 22.1 % [facility] Comment: Interpretive Data Percent cell count reference ranges are not reported, since discordance with absolute values may lead to misinterpretation of CBC data. Current Interpretive Data was last revised on 2017. Testing performed by: [facility], [address] [place] [phone] Monocyte pct 5.3 % [facility] Comment: Interpretive Data Percent cell count reference ranges are not reported, since discordance with absolute values may lead to misinterpretation of CBC data. Current Interpretive Data was last revised on 2017. Testing performed by: [facility], [facility] [place] [phone] Eosinophil pct 1.3 % [facility] Comment: Interpretive Data Percent cell count reference ranges are not reported, since discordance with absolute values may lead to misinterpretation of CBC data. Current Interpretive Data was last revised on 2017. Testing performed by: [facility], [address] [place] [phone] Basophil pct 1.2 % [facility] Comment: Interpretive Data Percent cell count reference ranges are not reported, since discordance with absolute values may lead to misinterpretation of CBC data. Current Interpretive Data was last revised on 2017. Testing performed by: [facility], [address] [place] [address] Blood 06/26/2024 7:50 AM TROUBLE TRACER 06/26/2024 7:52 AM TROUBLE TRACER us Devon Carlin MD LAB BLOOD ORDERABLES Fin al Result NERY [facility] [place] [address] * (ABNORMAL) CBC with auto differential (06/26/2024 7:50 AM TROUBLE TRACER) WBC 7.9 3.8 - 9.9 K/cumm Comment:Testing performed by : [facility], [address] [place] [address] Hgb 10.3(L) 13.0 - 17.5 g/dL [facility] Comment:Testing performed by : [facility], [address] [place] [address] Hct 32.8(L) 38.9 - 50.3 % [facility] Comment:Testing performed by : [facility], [address] [place] [address] Plt 447(H) 150 - 400 K/cumm [facility] Comment:Testing performed by : [facility], [address] [place] [address] MPV 6.7(L) 6.8 - 10.4 fL [facility] Comment:Testing performed by : [facility], [address] [place] [address] RBC 3.59(L) 4.30 - 5.80 M/cumm [facility]ERGENE [facility] Comment:Testing performed by : [facility], [address] [place] [address] MCV 91.4 81.3 - 96.4 fL [facility] Comment:Testing performed by : [facility], [address] [place], [place] [phone] MCH 28.7 27.1 - 33.3 pg NERY [facility] Comment:Testing performed by : [facility], [address] [place], [place] [phone] MCHC 31.3(L) 32.3 - 35.7 g/dL NERY [facility] Comment:Testing performed by : [facility], [address] [place], [place] [phone] RDW CV 18.4(H) 11.1 - 14.9 % NERY [facility] Comment:Testing performed by : [facility], [address] [place], [place] [phone] NRBC abs 0.00 0.00 - 0.01 K/cumm NERY [facility] Comment:Testing performed by : [facility], [address] [place], [place] [phone] Blood 06/26/2024 7:50 AM TROUBLE TRACER 06/26/2024 7:52 AM TROUBLE TRACER Devon Carlin MD LAB BLOOD ORDERABLES Fin al Result [facility] [place] [address] * (ABNORMAL) Total testosterone (06/26/2024 7:50 AM TROUBLE TRACER) Testosterone <5.0(L) 193.0 - 740.0 ng/dL Blood 06/26/2024 7:50 AM TROUBLE TRACER 06/26/2024 8:33 AM TROUBLE TRACER Devon Carlin MD LAB BLOOD ORDERABLES Fin al Result [facility] [place] [address] * (ABNORMAL) PSA diagnostic (06/26/2024 7:50 AM TROUBLE TRACER) Pathologist [facility] PSA-Total 129.00(H) <=6.20 ng/mL Comment: Interpretive Data AGE SEX REFERENCE INTERVAL 0 minutes-150 years Female None 0 minutes-49 years Male None 50-59 years Male 0-3.90 60-69 years Male 0-5.40 70-79 years Male 0-6.20 80-150 years Male 0-6.20 The Isabel PSA Total assay procedure was used. Results from different manufacturers or methods may not be comparable. Serial testing should be performed using the same method. Current interpretive data last revised 21. Blood 06/26/2024 7:50 AM TROUBLE TRACER 06/26/2024 7:57 AM TROUBLE TRACER us Devon Carlin MD LAB BLOOD ORDERABLES Fin al Result [facility] [place] [address] * (ABNORMAL) Comprehensive metabolic panel (06/26/2024 7:50 AM TROUBLE TRACER) [facility] Sodium 141 135 - 145 mmol/L Potassium, pl 5.1(H) 3.3 - 4.9 mmol/L [facility] Chloride 105 97 - 110 mmol/L [facility] CO2 28 22 - 32 mmol/L [facility] Anion gap 8 2 - 15 mmol/L [facility] BUN 19 6 - 25 mg/dL [facility] Creatinine 1.12 0.80 - 1.30 mg/dL [facility] Glucose 154 70 - 199 mg/dL [facility] Comment: Interpretive Data Fasting glucose >/= 126 mg/dl is diagnostic for diabetes. Fasting is defined as no caloric intake for at least 8 hours. Fasting glucose between 100 mg/dl to 125 mg/dl is diagnostic of prediabetes. In a patient with classic symptoms of hyperglycemia or hyperglycemic crisis, a random glucose >/= 200 mg/dl is diagnostic for diabetes. In the absence of unequivocal hyperglycemia, results should be confirmed by repeat testing. The classification and Diagnosis of Diabetes Diabetes Care 202; 46: S19-S40. Current interpretive data was last revised 2022. Calcium 9.7 8.5 - 10.3 mg/dL [facility] Bilirubin, total 0.4 0.1 - 1.2 mg/dL [facility] Protein, pl 7.2 6.5 - 8.5 g/dL [facility] Albumin 3.9 3.5 - 5.0 g/dL [facility] Alk phos 535(H) 40 - 130 Units/L [facility] ALT 16 7 - 55 Units/L [facility] AST 23 10 - 50 Units/L [facility] Blood 06/26/2024 7:50 AM TROUBLE TRACER 06/26/2024 7:57 AM TROUBLE TRACER Devon Carlin MD LAB BLOOD ORDERABLES Fin al Result [facility] [place] [address] * eGFR (06/12/2024 8:20 AM TROUBLE TRACER) eGFR 72 >=60 mL/min/1. 73 m2 Comment: Interpretive Data Reference Interval Normal >/= 90 mL/min/1.73m2 Mildly decreased* 60 - 89 mL/min/1.73m2 Mildly to moderately decreased 45 - 59 mL/min/1.73m2 Moderately to severely decreased 30 - 44 mL/min/1.73m2 Severely decreased 15 - 29 mL/min/1.73m2 Kidney Failure < 15 mL/min/1.73m2 *Relative to young adult level Estimated glomerular filtration rate is determined by the 2020 CKD-EPI equation recommended by the National Kidney Foundation (A Unifying Approach to GFR Estimation: Recommendations of the NKF-ASK Task Force on Reassessing the Inclusion of Race in Diagnosing Kidney Disease, JASN 202). The CKD-EPI equation should not be used for patients with unstable renal function and has not been validated in children and those over 70. Current interpretive data was last reviewed 2021. Blood 06/12/2024 8:20 AM TROUBLE TRACER 06/12/2024 8:28 AM TROUBLE TRACER us Devon Carlin MD LAB BLOOD ORDERABLES Fin al Result [facility] [place] [address] * (ABNORMAL) Comprehensive metabolic panel (06/12/2024 8:20 AM TROUBLE TRACER) Sodium 137 135 - 145 mmol/L Potassium, pl 4.6 3.3 - 4.9 mmol/L [facility] Chloride 102 97 - 110 mmol/L [facility] CO2 28 22 - 32 mmol/L [facility] Anion gap 7 2 - 15 mmol/L [facility] BUN 20 6 - 25 mg/dL [facility] Creatinine 1.05 0.80 - 1.30 mg/dL [facility] Glucose 140 70 - 199 mg/dL [facility] Comment: Interpretive Data Fasting glucose >/= 126 mg/dl is diagnostic for diabetes. Fasting is defined as no caloric intake for at least 8 hours. Fasting glucose between 100 mg/dl to 125 mg/dl is diagnostic of prediabetes. In a patient with classic symptoms of hyperglycemia or hyperglycemic crisis, a random glucose >/= 200 mg/dl is diagnostic for diabetes. In the absence of unequivocal hyperglycemia, results should be confirmed by repeat testing. The classification and Diagnosis of Diabetes Diabetes Care 202; 46: S19-S40. Current interpretive data was last revised 2022. Calcium 9.5 8.5 - 10.3 mg/dL [facility] Bilirubin, total 0.3 0.1 - 1.2 mg/dL [facility] Protein, pl 6.8 6.5 - 8.5 g/dL [facility] Albumin 3.7 3.5 - 5.0 g/dL [facility] Alk phos 572(H) 40 - 130 Units/L [facility] ALT 21 7 - 55 Units/L [facility] AST 27 10 - 50 Units/L [facility] Blood 06/12/2024 8:20 AM TROUBLE TRACER 06/12/2024 8:28 AM TROUBLE TRACER Narrative [facility] - 06/12/2024 8:59 AM TROUBLE TRACER Has the patient fasted?->No us Devon Carlin MD LAB BLOOD ORDERABLES Fin al Result [facility] [place] [address] * Differential, auto (06/12/2024 7:24 AM TROUBLE TRACER) Neutrophil abs 5.3 1.5 - 6.5 K/cumm Comment:Testing performed by : [facility], [address] [place] [phone] Lymphocyte abs 2.2 0.8 - 3.3 K/cumm [facility] Comment:Testing performed by : [facility], [address] [place], [place] [phone] Monocyte abs 0.4 0.2 - 0.8 K/cumm [facility] Comment:Testing performed by : [facility], [address] [place], [place] [phone] Eosinophil abs 0.5 0.0 - 0.5 K/cumm [facility] Comment:Testing performed by : [facility], [address] [place] [phone] Basophil abs 0.1 0.0 - 0.1 K/cumm [facility] Comment:Testing performed by : [facility], [address] [place] [phone] Neutrophil pct 61.8 % [facility] Comment: Interpretive Data Percent cell count reference ranges are not reported, since discordance with absolute values may lead to misinterpretation of CBC data. Current Interpretive Data was last revised on 2017. Testing performed by: [facility], [address] [place] [phone] Lymphocyte pct 25.8 % [facility] Comment: Interpretive Data Percent cell count reference ranges are not reported, since discordance with absolute values may lead to misinterpretation of CBC data. Current Interpretive Data was last revised on 2017. Testing performed by: [facility], [address] [place], [place] [phone] Monocyte pct 4.9 % NERY HUSAIN Comment: Interpretive Data Percent cell count reference ranges are not reported, since discordance with absolute values may lead to misinterpretation of CBC data. Current Interpretive Data was last revised on 2017. Testing performed by: [facility], [address] [place] [phone] Eosinophil pct 6.1 % NERY HUSAIN Comment: Interpretive Data Percent cell count reference ranges are not reported, since discordance with absolute values may lead to misinterpretation of CBC data. Current Interpretive Data was last revised on 2017. Testing performed by: [facility], [address] [place] [phone] Basophil pct 1.4 % NERY HUSAIN Comment: Interpretive Data Percent cell count reference ranges are not reported, since discordance with absolute values may lead to misinterpretation of CBC data. Current Interpretive Data was last revised on 2017. Testing performed by: [facility], [address] [place] [phone] Blood 06/12/2024 7:24 AM TROUBLE TRACER 06/12/2024 7:28 AM TROUBLE TRACER us Devon Carlin MD LAB BLOOD ORDERABLES Fin al Result NERY HUSAIN [facility] [place] [address] * (ABNORMAL) CBC with auto differential (06/12/2024 7:24 AM TROUBLE TRACER) WBC 8.6 3.8 - 9.9 K/cumm Comment:Testing performed by : [facility], [address] [place] [phone] Hgb 9.3(L) 13.0 - 17.5 g/dL NERY HUSAIN Comment:Testing performed by : [facility], [address] [place] [phone] Hct 28.8(L) 38.9 - 50.3 % NERY HUSAIN Comment:Testing performed by : [facility], [address] [place] [address] Plt 358 150 - 400 K/cumm CERGENE BJ Comment:Testing performed by : [facility], [address] [place] [address] MPV 7.0 6.8 - 10.4 fL CERGENE BJ Comment:Testing performed by : [facility], [address] [place] [address] RBC 3.12(L) 4.30 - 5.80 M/cumm CERNER BJ Comment:Testing performed by : [facility], [address] [place] [address] MCV 92.2 81.3 - 96.4 fL CERGENE BJ Comment:Testing performed by : [facility], [address] [place] [address] MCH 29.9 27.1 - 33.3 pg CERGENE BJ Comment:Testing performed by : [facility], [address] [place] [address] MCHC 32.4 32.3 - 35.7 g/dL CERNER BJ Comment:Testing performed by : [facility], [address] [place] [address] RDW CV 18.4(H) 11.1 - 14.9 % CERGENE BJ Comment:Testing performed by : [facility], [address] [place] [address] NRBC abs 0.00 0.00 - 0.01 K/cumm CERGENE BJ Comment:Testing performed by : [facility], [address] [place] [address] Blood 06/12/2024 7:24 AM TROUBLE TRACER 06/12/2024 7:28 AM TROUBLE TRACER us Devon Carlin MD LAB BLOOD ORDERABLES Fin al Result NERY [facility] [place] [address] * (ABNORMAL) eGFR (06/05/2024 8:47 AM TROUBLE TRACER) [facility] eGFR 55(L) >=60 mL/min/1. 73 m2 Comment: Interpretive Data Reference Interval Normal >/= 90 mL/min/1.73m2 Mildly decreased* 60 - 89 mL/min/1.73m2 Mildly to moderately decreased 45 - 59 mL/min/1.73m2 Moderately to severely decreased 30 - 44 mL/min/1.73m2 Severely decreased 15 - 29 mL/min/1.73m2 Kidney Failure < 15 mL/min/1.73m2 *Relative to young adult level Estimated glomerular filtration rate is determined by the 2020 CKD-EPI equation recommended by the National Kid[employer] (A Unifying Approach to GFR Estimation: Recommendations of the NKF-ASK Task Force on Reassessing the Inclusion of Race in Diagnosing Kidney Disease, JASN 2020). The CKD-EPI equation should not be used for patients with unstable renal function and has not been validated in children and those over 70. Current interpretive data was last reviewed 2021. Blood 06/05/2024 8:47 AM TROUBLE TRACER 06/05/2024 8:58 AM TROUBLE TRACER us Devon Carlin MD LAB BLOOD ORDERABLES Fin al Result NERY HUSAIN [facility] Department [place] [address] * Differential, auto (06/05/2024 8:47 AM TROUBLE TRACER) [facility] Neutrophil abs 4.8 1.5 - 6.5 K/cumm Comment:Testing performed by : [facility], [address] [place] [phone] Lymphocyte abs 1.5 0.8 - 3.3 K/cumm NERY HUSAIN Comment:Testing performed by : [facility], [address] [place] [phone] Monocyte abs 0.6 0.2 - 0.8 K/cumm NERY HUSAIN Comment:Testing performed by : [facility], [address] [place] [phone] Eosinophil abs 0.2 0.0 - 0.5 K/cumm [facility] Comment:Testing performed by : [facility], [address] [place] [phone] Basophil abs 0.1 0.0 - 0.1 K/cumm [facility] Comment:Testing performed by : [facility], [address] [place] [phone] Neutrophil pct 66.8 % [facility] Comment: Interpretive Data Percent cell count reference ranges are not reported, since discordance with absolute values may lead to misinterpretation of CBC data. Current Interpretive Data was last revised on 2017. Testing performed by: [facility], [address] [place] [phone] Lymphocyte pct 21.0 % [facility] Comment: Interpretive Data Percent cell count reference ranges are not reported, since discordance with absolute values may lead to misinterpretation of CBC data. Current Interpretive Data was last revised on 2017. Testing performed by: [facility], [address] [place] [phone] Monocyte pct 8.4 % CERNER [facility]J Comment: Interpretive Data Percent cell count reference ranges are not reported, since discordance with absolute values may lead to misinterpretation of CBC data. Current Interpretive Data was last revised on 2017. Testing performed by: [facility], [address] [place] [phone] Eosinophil pct 2.4 % [facility] Comment: Interpretive Data Percent cell count reference ranges are not reported, since discordance with absolute values may lead to misinterpretation of CBC data. Current Interpretive Data was last revised on 2017. Testing performed by: [facility], [address] [place] [phone] Basophil pct 1.4 % [facility] Comment: Interpretive Data Percent cell count reference ranges are not reported, since discordance with absolute values may lead to misinterpretation of CBC data. Current Interpretive Data was last revised on 2017. Testing performed by: [facility], [address] [place] [address] Blood 06/05/2024 8:47 AM TROUBLE TRACER 06/05/2024 8:48 AM TROUBLE TRACER us Devon Carlin MD LAB BLOOD ORDERABLES Fin al Result [facility] [place] [address] * (ABNORMAL) CBC with auto differential (06/05/2024 8:47 AM TROUBLE TRACER) WBC 7.2 3.8 - 9.9 K/cumm Comment:Testing performed by : [facility], [address] [place] [address] Hgb 9.7(L) 13.0 - 17.5 g/dL CERGENE HUSAIN Comment:Testing performed by : [facility], [address] [place] [address] Hct 30.3(L) 38.9 - 50.3 % CERGENE BJ Comment:Testing performed by : [facility], [address] [place] [address] Plt 398 150 - 400 K/cumm CERGENE HUSAIN Comment:Testing performed by : [facility], [address] [place] [address] MPV 6.5(L) 6.8 - 10.4 fL CERGENE BJ Comment:Testing performed by : [facility], [address] [place] [address] RBC 3.27(L) 4.30 - 5.80 M/cumm CERGENE BJ Comment:Testing performed by : [facility], [address] [place] [address] MCV 92.6 81.3 - 96.4 fL CERGENE BJ Comment:Testing performed by : [facility], [address] [place] [address] MCH 29.7 27.1 - 33.3 pg CERGENE [facility] Comment:Testing performed by : [facility], [address] [place] [phone] MCHC 32.1(L) 32.3 - 35.7 g/dL NERY [facility] Comment:Testing performed by : [facility], [address] [place], [place] [phone] RDW CV 18.4(H) 11.1 - 14.9 % NERY [facility] Comment:Testing performed by : [facility], [address] [place] [phone] NRBC abs 0.00 0.00 - 0.01 K/cumm NERY [facility] Comment:Testing performed by : [facility], [address] [place] [phone] Blood 06/05/2024 8:47 AM TROUBLE TRACER 06/05/2024 8:48 AM TROUBLE TRACER Devon Carlin MD LAB BLOOD ORDERABLES Fin al Result Performing Organization Address City/[facility] Co de Phone Number [facility] [place] [address] * (ABNORMAL) Total testosterone (06/05/2024 8:47 AM TROUBLE TRACER) Testosterone <5.0(L) 193.0 - 740.0 ng/dL Blood 06/05/2024 8:47 AM TROUBLE TRACER 06/05/2024 9:17 AM TROUBLE TRACER Devon Carlin MD LAB BLOOD ORDERABLES Fin al Result Performing Organization Address City/State/[facility] Co de Phone Number [facility] [place] [address] * (ABNORMAL) PSA diagnostic (06/05/2024 8:47 AM TROUBLE TRACER) PSA-Total 141.00(H) <=6.20 ng/mL Comment: Interpretive Data AGE SEX REFERENCE INTERVAL 0 minutes-150 years Female None 0 minutes-49 years Male None 50-59 years Male 0-3.90 60-69 years Male 0-5.40 70-79 years Male 0-6.20 80-150 years Male 0-6.20 The Isabel PSA Total assay procedure was used. Results from different manufacturers or methods may not be comparable. Serial testing should be performed using the same method. Current interpretive data last revised 21. Blood 06/05/2024 8:47 AM TROUBLE TRACER 06/05/2024 8:58 AM TROUBLE TRACER us Devon Carlin MD LAB BLOOD ORDERABLES Fin al Result [facility] [place] [address] * (ABNORMAL) Comprehensive metabolic panel (06/05/2024 8:47 AM TROUBLE TRACER) Sodium 140 135 - 145 mmol/L Potassium, pl 4.3 3.3 - 4.9 mmol/L [facility] Chloride 103 97 - 110 mmol/L [facility] CO2 27 22 - 32 mmol/L [facility] Anion gap 10 2 - 15 mmol/L [facility] BUN 21 6 - 25 mg/dL [facility] Creatinine 1.32(H) 0.80 - 1.30 mg/dL [facility] Glucose 125 70 - 199 mg/dL [facility] Comment: Interpretive Data Fasting glucose >/= 126 mg/dl is diagnostic for diabetes. Fasting is defined as no caloric intake for at least 8 hours. Fasting glucose between 100 mg/dl to 125 mg/dl is diagnostic of prediabetes. In a patient with classic symptoms of hyperglycemia or hyperglycemic crisis, a random glucose >/= 200 mg/dl is diagnostic for diabetes. In the absence of unequivocal hyperglycemia, results should be confirmed by repeat testing. The classification and Diagnosis of Diabetes Diabetes Care 2021; 46: S19-S40. Current interpretive data was last revised 2022. Calcium 9.4 8.5 - 10.3 mg/dL [facility] Bilirubin, total 0.3 0.1 - 1.2 mg/dL [facility] Protein, pl 6.7 6.5 - 8.5 g/dL [facility] Albumin 3.8 3.5 - 5.0 g/dL CERNER B[facility] Alk phos 664(H) 40 - 130 Units/L [facility] ALT 16 7 - 55 Units/L [facility] AST 22 10 - 50 Units/L CERNER [facility]J Blood 06/05/2024 8:47 AM TROUBLE TRACER 06/05/2024 8:58 AM TROUBLE TRACER us Devon Carlin MD LAB BLOOD ORDERABLES Fin al Result 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
--- OUTSIDE RECORDS SUMMARY | 2024-08-31 18:19 | XMS_ITS | Clinical Summary ---
Author Organization [facility] [address] Address [address] [place] [address] Care Team Providers Care Blocklayer Name Role Phone Saw Ga MD Primary Care Provider [phone] Devon Carlin MD Unavailable [phone] Allergies Active Allergy Reactions Criticality Noted Date [...] A ORAL DOS VECES AL D A Active clotrimazole 1 % cream Apply topically 2 (two) times a day 30 g Active amLODIPine (NORVASC) 5 mg tablet Take 1 tablet (5 mg total) by mouth daily 30 tablet 024 2024 Active polyethylene glycol (MIRALAX) 17 gram/dose [...] Plan (12/21/2023 12:21 PM CDT): Follows with [facility] oncology for prostate cancer, initially diagnosed T3N0 [...] outpatient follow-up with the oncologist here at [facility]. Oncology to arrange follow-up at discharge [...] without new or worsened bleed. Evaluated by PAIGE in ED without any operative plans. - Discussed with beverley GIBSON with [facility] for DVT ppx Assessment & Plan (11/22/2023 2:54 PM CDT): Neurosurgery team for 3 mm R frontal SDH, which was managed non-operatively, and followed with stable serial imaging. This patient was staffed with Dr. Avendano The patient should be seen in clinic in 4-6 weeks with a non-contrast head CT. OK for [facility] for DVT prophylaxis and Q4H NC. [...] home Coumadin, continue metoprolol for rate control [employer] Dr Escamilla aware (11/21) plan for watchman in the future Osteoarthritis Overview (01/10/2024): Osteoarthritis Encounters Date Type Department Care Team Description 08/29/2024 Orders Only [facility] Oncology [address] [place] [address] Devon Carlin MD 08/28/2024 9:30 AM MANAGER NON PROFIT Infusion [facility] - Infusion [address] [place] [address] Floor 5 [place] [address] Prostate cancer (HCC) (Primary Dx); Metastasis to bone (CMS/HCC) (HCC) 08/28/2024 8:30 AM MANAGER NON PROFIT Office Visit [facility] Oncology [address] [place] [address] Floor 5 [place] [address] Devon Carlin MD Prostate cancer (HCC) (Primary Dx); Metastasis to bone (CMS/HCC) (HCC) 08/28/2024 7:30 AM MANAGER NON PROFIT Lab [facility] - Lab Collection [facility] Floor 5 [place] [address] Metastasis to bone (CMS/HCC) (HCC); Prostate cancer (HCC) 08/06/2024 Telephone [facility] Oncology [address] [facility] Floor 5 [place] [address] Devendra Jane RN 07/28/2024 Telephone [facility] Neurosurgery [address] [facility] 6th [place] [address] [place] [address] Belkis Hoang PA 07/25/2024 8:15 AM MANAGER NON PROFIT Infusion [facility] - Infusion [address] Floor 5 [place] [address] Metastasis to bone (CMS/HCC) (HCC); Prostate cancer (HCC) 07/25/2024 8:00 AM MANAGER NON PROFIT Infusion [facility] - Infusion [address] Floor 5 [place] [address] Prostate cancer (HCC) (Primary Dx); Metastasis to bone (CMS/HCC) (HCC) 07/25/2024 7:15 AM MANAGER NON PROFIT Lab [facility] - Lab Collection [address] [facility] Floor 5 [place] [address] Metastasis to bone (CMS/HCC) (HCC); Prostate cancer (HCC) 07/21/2024 Orders Only [facility] Oncology [address] [place] [phone] Devon Carlin MD 07/21/2024 Orders Only [facility] Oncology [address] [place] [phone] Devon Carlin MD 07/17/2024 9:00 AM MANAGER NON PROFIT Infusion [facility] - Infusion [address] Floor 5 [place] [address] Prostate cancer (HCC) (Primary Dx); Metastasis to bone (CMS/HCC) (HCC) 07/17/2024 8:45 AM MANAGER NON PROFIT Office Visit [facility] Oncology [address] [facility] Floor 5 [place] [address] Devon Carlin MD Prostate cancer (HCC) (Primary Dx); Metastasis to bone (CMS/HCC) (HCC) 07/17/2024 7:45 AM MANAGER NON PROFIT Lab [facility] - Lab Collection [address] Floor 5 [place] [address] Metastasis to bone (CMS/HCC) (HCC); Prostate cancer (HCC) 07/03/2024 7:30 AM MANAGER NON PROFIT Infusion [facility] - Infusion [address] Floor 5 [place] [address] Prostate cancer (HCC) (Primary Dx); Metastasis to bone (CMS/HCC) (HCC) 07/03/2024 6:45 AM MANAGER NON PROFIT Lab [facility] - Lab Collection [address] Floor 5 [place] [address] Metastasis to bone (CMS/HCC) (HCC); Prostate cancer (HCC) 06/26/2024 9:30 AM MANAGER NON PROFIT Infusion [facility] - Infusion [address] Floor 5 [place] [address] Prostate cancer (HCC) (Primary Dx); Metastasis to bone (CMS/HCC) (HCC) 06/26/2024 8:15 AM MANAGER NON PROFIT Office Visit [facility] Oncology [address] [facility] Floor 5 [place] [address] Devon Carlin MD Prostate cancer (HCC) (Primary Dx); Metastasis to bone (CMS/HCC) (HCC) 06/26/2024 7:00 AM MANAGER NON PROFIT Lab [facility] - Lab Collection [address] Floor 5 [place] [address] Metastasis to bone (CMS/HCC) (HCC); Prostate cancer (HCC) 06/12/2024 8:00 AM MANAGER NON PROFIT Infusion [facility] - Infusion [address] Floor 5 [place] [address] Prostate cancer (HCC) (Primary Dx); Metastasis to bone (CMS/HCC) (HCC) 06/12/2024 7:00 AM MANAGER NON PROFIT Lab [facility] - Lab Collection [address] Floor 5 [place] [address] Prostate cancer (HCC) (Primary Dx); Metastasis to bone (CMS/HCC) (HCC) 06/05/2024 10:00 AM MANAGER NON PROFIT Infusion [facility] - Infusion [address] Floor 6 [place] [address] Prostate cancer (HCC) (Primary Dx); Metastasis to bone (CMS/HCC) (HCC) 06/05/2024 9:00 AM MANAGER NON PROFIT Office Visit [facility] Oncology [facility] Floor 5 [place] [address] Devon Carlin MD Prostate cancer (HCC) (Primary Dx); Metastasis to bone (CMS/HCC) (HCC) 06/05/2024 8:00 AM MANAGER NON PROFIT Lab [facility] - Lab Collection [address] [facility] Floor 5 [place] [address] Metastasis to bone (CMS/HCC) (HCC); Prostate cancer (HCC) 06/03/2024 Telephone [facility] Oncology [address] [place] [address] Floor 5 [place] [address] Devendra Jane RN 06/03/2024 Orders Only [facility] Oncology [address] [place] [address] 5 [place] [address] Devon Carlin MD Prostate cancer (HCC) (Primary Dx); Metastasis to bone (CMS/HCC) (HCC) from Last 3 Months Immunizations Name Administration Dates Next Due Influenza, Quadrivalent, Hig h Dose, Preservative Free, Intrr 06/04/2020 Influenza, Quadrivalent, Spl it, Preservative Free, Intramuscular 07/30/2013 Influenza, Trivalent, High D ose, Split, Preservative Free, Intramuscular 07/03/2019 Surgical History Surgery Date Site/Laterality Comments OTHER SURGICAL HISTORY TIA: Medical History Medical History Date Comments Sleep apnea Sleep Apnea Osteoarthritis Osteoarthritis Hx Other Medical 2006 TIA Family History Medical History Relation Name Comments Cancer Father Cancer Mother Cancer Sister Relation Name Status Comments Father Mother Sister Social History Tobacco Use Types Packs/Day Years [...] materials from doctor or pharmacy Always 11/27/2023 [facility] Utilities Answer Date Recorded In the past 12 months has e [employer], gas, oil, or water [employer] threatened to shut off services in your [...] often do you attend chur ch or anabaptism services? Never 12/20/2023 Do you belong to any clubs o r organizations such as yazidi groups, unions, fraternal or athletic groups, or [...] medical care, and heating? Somewhat hard 12/20/2023 [facility] of Occupat ional Health - Occupational Stress [...] place to sleep or slept in a nursing home (including now)? No 11/21/2023 Housing Stability Vital Sign Answer Roman e Recorded In the last 12 months, was t here a time when you were not able to pay the mortgage or rent on time? No 12/20/2023 In the past 12 months, how m any times have you moved where you were living? 1 12/20/2023 At any time in the past 12 m [facility], were you homeless or living in a nursing home (including now)? No 12/20/2023 Personal Safety Answer Date Recorded Have you ever been in or are you currently in a harmful physical or emotional relationship or is someone making you feel afraid or unsafe? Denies 03/14/2024 Sex and Gender Information Value Date Recorded Sex Assigned at Not on file Legal Sex Male 4:28 AM MANAGER NON PROFIT Gender Identity Not on file Sexual Orientation Not on file Obstetrics History Last Filed Vital Signs Vital Sign Reading Time Taken Comments Blood Pressure 136/55 08/28/2024 7:58 AM MANAGER NON PROFIT Pulse 88 08/28/2024 7:58 AM MANAGER NON PROFIT Temperature 36.3 C (97.3 F) 08/28/2024 7:58 AM MANAGER NON PROFIT Respiratory Rate 18 08/28/2024 7:58 AM MANAGER NON PROFIT Oxygen Saturation 92% 08/28/2024 7:58 AM MANAGER NON PROFIT Inhaled Oxygen Concentration - - Weight 77.8 kg (171 lb 9.6 oz) 08/28/2024 7:58 A M MANAGER NON PROFIT Height 168.9 cm (5' 6.5 ) 08/28/2024 7:58 AM MANAGER NON PROFIT Body Mass Index 27.28 08/28/2024 7:58 AM MANAGER NON PROFIT Plan of Treatment Health Maintenance Due Date Last Done Comments Depression Screening 1945 Hepatitis C Screening 1945 Pneumococcal vaccine 65+ (1 of 2 - PCV) 1951 DTaP/Tdap/Td Vaccine (1 - Tdap) 1956 Hepatitis B Screening 1963 Zoster Vaccine (1 of 2) 1964 Well Visit 65+ 2010 Influenza Vaccine (#1) 2024 , 07/03/2019, 07/30/2013 Fall Risk Assessment 01/18/2025 01/19/2024 Abdominal Aortic Aneurysm (A AA) Screen Completed 07/30/2024, 2024, 02/04/2024 Procedures Procedure Name Priority Date/Time Associated Diagnosis Comments EGFR Routine 08/28/2024 7:48 AM MANAGER NON PROFIT Metastasis to bone (CMS/HCC) (HCC) Prostate cancer (HCC) DIFFERENTIAL AUTO Routine 08/28/2024 7:4 8 AM MANAGER NON PROFIT Metastasis to bone (CMS/HCC) (HCC) Prostate cancer (HCC) PSA DIAGNOSTIC Routine 08/28/2024 7:48 AM MANAGER NON PROFIT Metastasis to bone (CMS/HCC) (HCC) Prostate cancer (HCC) TOTAL TESTOSTERONE Routine 08/28/2024 7: 48 AM MANAGER NON PROFIT Metastasis to bone (CMS/HCC) (HCC) Prostate cancer (HCC) CBC WITH AUTO DIFFERENTIAL Routine 08/28/2024 7:48 AM MANAGER NON PROFIT Metastasis to bone (CMS/HCC) (HCC) Prostate cancer (HCC) COMPREHENSIVE METABOLIC PANEL Routine 08/28/2024 7:48 AM MANAGER NON PROFIT Metastasis to bone (CMS/HCC) (HCC) Prostate cancer (HCC) EGFR Routine 07/25/2024 7:35 AM MANAGER NON PROFIT Metastasis to bone (CMS/HCC) (HCC) Prostate cancer (HCC) DIFFERENTIAL AUTO Routine 07/25/2024 7:3 5 AM MANAGER NON PROFIT Metastasis to bone (CMS/HCC) (HCC) Prostate cancer (HCC) CBC WITH AUTO DIFFERENTIAL Routine 07/25/2024 7:35 AM MANAGER NON PROFIT Metastasis to bone (CMS/HCC) (HCC) Prostate cancer (HCC) COMPREHENSIVE METABOLIC PANEL Routine 07/25/2024 7:35 AM MANAGER NON PROFIT Metastasis to bone (CMS/HCC) (HCC) Prostate cancer (HCC) DIFFERENTIAL AUTO Routine 07/17/2024 8:0 5 AM MANAGER NON PROFIT Metastasis to bone (CMS/HCC) (HCC) Prostate cancer (HCC) CBC WITH AUTO DIFFERENTIAL Routine 07/17/2024 8:05 AM MANAGER NON PROFIT Metastasis to bone (CMS/HCC) (HCC) Prostate cancer (HCC) EGFR Routine 07/17/2024 7:58 AM MANAGER NON PROFIT Metastasis to bone (CMS/HCC) (HCC) Prostate cancer (HCC) PSA DIAGNOSTIC Routine 07/17/2024 7:58 AM MANAGER NON PROFIT Metastasis to bone (CMS/HCC) (HCC) Prostate cancer (HCC) TOTAL TESTOSTERONE Routine 07/17/2024 7: 58 AM MANAGER NON PROFIT Metastasis to bone (CMS/HCC) (HCC) Prostate cancer (HCC) COMPREHENSIVE METABOLIC PANEL Routine 07/17/2024 7:58 AM MANAGER NON PROFIT Metastasis to bone (CMS/HCC) (HCC) Prostate cancer (HCC) EGFR Routine 07/03/2024 7:25 AM MANAGER NON PROFIT Metastasis to bone (CMS/HCC) (HCC) Prostate cancer (HCC) COMPREHENSIVE METABOLIC PANEL Routine 07/03/2024 7:25 AM MANAGER NON PROFIT Metastasis to bone (CMS/HCC) (HCC) Prostate cancer (HCC) MANUAL DIFFERENTIAL Routine 07/03/2024 7 :23 AM MANAGER NON PROFIT Metastasis to bone (CMS/HCC) (HCC) Prostate cancer (HCC) CBC WITH AUTO DIFFERENTIAL Routine 07/03/2024 7:23 AM MANAGER NON PROFIT Metastasis to bone (CMS/HCC) (HCC) Prostate cancer (HCC) EGFR Routine 06/26/2024 7:50 AM MANAGER NON PROFIT Metastasis to bone (CMS/HCC) (HCC) Prostate cancer (HCC) DIFFERENTIAL AUTO Routine 06/26/2024 7:5 0 AM MANAGER NON PROFIT Metastasis to bone (CMS/HCC) (HCC) Prostate cancer (HCC) CBC WITH AUTO DIFFERENTIAL Routine 06/26/2024 7:50 AM MANAGER NON PROFIT Metastasis to bone (CMS/HCC) (HCC) Prostate cancer (HCC) TOTAL TESTOSTERONE Routine 06/26/2024 7: 50 AM MANAGER NON PROFIT Metastasis to bone (CMS/HCC) (HCC) Prostate cancer (HCC) PSA DIAGNOSTIC Routine 06/26/2024 7:50 AM MANAGER NON PROFIT Metastasis to bone (CMS/HCC) (HCC) Prostate cancer (HCC) COMPREHENSIVE METABOLIC PANEL Routine 06/26/2024 7:50 AM MANAGER NON PROFIT Metastasis to bone (CMS/HCC) (HCC) Prostate cancer (HCC) EGFR STAT 06/12/2024 8:20 AM MANAGER NON PROFIT Metastasis to bone (CMS/HCC) (HCC) Prostate cancer (HCC) COMPREHENSIVE METABOLIC PANEL STAT 06/12/2024 8:20 AM MANAGER NON PROFIT Metastasis to bone (CMS/HCC) (HCC) Prostate cancer (HCC) DIFFERENTIAL AUTO Routine 06/12/2024 7:2 4 AM MANAGER NON PROFIT Metastasis to bone (CMS/HCC) (HCC) Prostate cancer (HCC) CBC WITH AUTO DIFFERENTIAL Routine 06/12/2024 7:24 AM MANAGER NON PROFIT Metastasis to bone (CMS/HCC) (HCC) Prostate cancer (HCC) EGFR Routine 06/05/2024 8:47 AM MANAGER NON PROFIT Metastasis to bone (CMS/HCC) (HCC) Prostate cancer (HCC) DIFFERENTIAL AUTO Routine 06/05/2024 8:4 7 AM MANAGER NON PROFIT Metastasis to bone (CMS/HCC) (HCC) Prostate cancer (HCC) PSA DIAGNOSTIC Routine 06/05/2024 8:47 AM MANAGER NON PROFIT Metastasis to bone (CMS/HCC) (HCC) Prostate cancer (HCC) TOTAL TESTOSTERONE Routine 06/05/2024 8: 47 AM MANAGER NON PROFIT Metastasis to bone (CMS/HCC) (HCC) Prostate cancer (HCC) CBC WITH AUTO DIFFERENTIAL Routine 06/05/2024 8:47 AM MANAGER NON PROFIT Metastasis to bone (CMS/HCC) (HCC) Prostate cancer (HCC) COMPREHENSIVE METABOLIC PANEL Routine 06/05/2024 8:47 AM MANAGER NON PROFIT Metastasis to bone (CMS/HCC) (HCC) Prostate cancer (HCC) CT CHEST ABDOMEN PELVIS W CONTRAST Schedule Routine, Read Routine (OP Routine) 2024 7:47 AM CDT Metastasis to bone (CMS/HCC) (HCC) Prostate cancer (HCC) from Last 3 Months or Most Recently Relevant to Health Maintenance Results * eGFR (08/28/2024 7:48 AM MANAGER NON PROFIT) eGFR 74 >=60 mL/min/1. 73 m2 Comment: [...] last reviewed 2021. Blood 08/28/2024 7:48 AM MANAGER NON PROFIT 08/28/2024 7:58 AM MANAGER NON PROFIT us Devon Carlin MD LAB BLOOD ORDERABLES Fin al Result [facility] Department [place] [address] * (ABNORMAL) Differential, auto (08/28/2024 7:48 AM MANAGER NON PROFIT) Pathologist [facility] Neutrophil abs 6.6(H) 1.5 - 6.5 K/cumm Comment:Testing performed by : [facility] Cancer [facility] Heme [facility], [address] [place] [phone] Lymphocyte abs 1.5 0.8 - 3.3 K/cumm NERY HUSAIN Comment:Testing performed by : [facility] Heme Lab, [address] [place] [phone] Monocyte abs 0.4 0.2 - 0.8 K/cumm [facility] Comment:Testing performed by : [facility] Heme [facility], [address] [place] [phone] Eosinophil abs 0.0 0.0 - 0.5 K/cumm [facility] Comment:Testing performed by : [facility]e [facility], [address] [place] [phone] Basophil abs 0.1 0.0 - 0.1 K/cumm [facility] Comment:Testing performed by : [facility]e [facility], [address] [place] [phone] Neutrophil pct 76.8 % [facility] Comment: Interpretive Data Percent cell count reference ranges are not reported, since discordance with absolute values may lead to misinterpretation of CBC data. Current Interpretive Data was last revised on 2017. Testing performed by: [facility], [address] [place] [phone] Lymphocyte pct 17.0 % [facility] Comment: Interpretive Data Percent cell count reference ranges are not reported, since discordance with absolute values may lead to misinterpretation of CBC data. Current Interpretive Data was last revised on 2017. Testing performed by: [facility], [address] [place] [phone] Monocyte pct 4.9 % [facility] Comment: Interpretive Data Percent cell count reference ranges are not reported, since discordance with absolute values may lead to misinterpretation of CBC data. Current Interpretive Data was last revised on 2017. Testing performed by: [facility]e [facility], [address] [place] [phone] Eosinophil pct 0.4 % [facility] Comment: Interpretive Data Percent cell count reference ranges are not reported, since discordance with absolute values may lead to misinterpretation of CBC data. Current Interpretive Data was last revised on 2017. Testing performed by: [facility]e [facility], [address] [place] [phone] Basophil pct 0.9 % [facility] Comment: Interpretive Data Percent cell count reference ranges are not reported, since discordance with absolute values may lead to misinterpretation of CBC data. Current Interpretive Data was last revised on 2017. Testing performed by: [facility]e [facility], [address] [place] [address] Blood 08/28/2024 7:48 AM MANAGER NON PROFIT 08/28/2024 8:00 AM MANAGER NON PROFIT us Devon Carlin MD LAB BLOOD ORDERABLES Fin al Result [facility] Department [place] [address] * (ABNORMAL) CBC with auto differential (08/28/2024 7:48 AM MANAGER NON PROFIT) WBC 8.6 3.8 - 9.9 K/cumm Comment:Testing performed by : [facility]e [facility], [address] [place] [address] Hgb 9.5(L) 13.0 - 17.5 g/dL CERNER [facility] Comment:Testing performed by : [facility], [address] [place] [address] Hct 29.4(L) 38.9 - 50.3 % CERNER [facility] Comment:Testing performed by : [facility], [address] [place] [address] Plt 568(H) 150 - 400 K/cumm CERNER [facility] Comment:Testing performed by : [facility], [address] [place] [address] MPV 7.2 6.8 - 10.4 fL CERNER [facility] Comment:Testing performed by : [facility], [address] [place] [address] RBC 3.52(L) 4.30 - 5.80 M/cumm CERNER [facility] Comment:Testing performed by : [facility], [address] [place] [address] MCV 83.5 81.3 - 96.4 fL CERNER [facility] Comment:Testing performed by : [facility], [address] [place], [place] [phone] MCH 27.0(L) 27.1 - 33.3 pg NERY [facility] Comment:Testing performed by : [facility], [address] [place], [place] [phone] MCHC 32.4 32.3 - 35.7 g/dL NERY [facility] Comment:Testing performed by : [facility], [address] [place], [place] [phone] RDW CV 19.4(H) 11.1 - 14.9 % CERGENE [facility] Comment:Testing performed by : [facility], [address] [place], [place] [phone] NRBC abs 0.00 0.00 - 0.01 K/cumm NERY [facility] Comment:Testing performed by : [facility], [address] [place], [place] [phone] Blood 08/28/2024 7:48 AM MANAGER NON PROFIT 08/28/2024 8:00 AM MANAGER NON PROFIT us Devon Carlin MD LAB BLOOD ORDERABLES Fin al Result Performing Organization Address City/[facility]/ZIP Co de Phone Number [facility] Department [place] [address] * (ABNORMAL) Total testosterone (08/28/2024 7:48 AM MANAGER NON PROFIT) Testosterone <5.0(L) 193.0 - 740.0 ng/dL Blood 08/28/2024 7:48 AM MANAGER NON PROFIT 08/28/2024 8:20 AM MANAGER NON PROFIT us Devon Carlin MD LAB BLOOD ORDERABLES Fin al Result Performing Organization Address City/[facility]/ZIP Co de Phone Number [facility] [place] [address] * (ABNORMAL) PSA diagnostic (08/28/2024 7:48 AM MANAGER NON PROFIT) PSA-Total 188.00(H) <=6.20 ng/mL Comment: Interpretive Data [...] last revised 21. Blood 08/28/2024 7:48 AM MANAGER NON PROFIT 08/28/2024 7:58 AM MANAGER NON PROFIT us Devon Carlin MD LAB BLOOD ORDERABLES Fin al Result [facility] Department [place] [address] * (ABNORMAL) Comprehensive metabolic panel (08/28/2024 7:48 AM MANAGER NON PROFIT) Sodium 140 135 - 145 mmol/L Potassium, pl 4.4 3.3 - 4.9 mmol/L [facility] Chloride 100 97 - 110 mmol/L [facility] CO2 29 22 - 32 mmol/L [facility] Anion gap 11 2 - 15 mmol/L [facility] BUN 23 6 - 25 mg/dL [facility] Creatinine 1.03 0.80 - 1.30 mg/dL [facility] Glucose 166 70 - 199 mg/dL [facility] Comment: Interpretive Data Fasting glucose >/= [...] 2022. Calcium 9.7 8.5 - 10.3 mg/dL [facility] Bilirubin, total 0.3 0.1 - 1.2 mg/dL [facility] Protein, pl 7.1 6.5 - 8.5 g/dL [facility] Albumin 3.4(L) 3.5 - 5.0 g/dL [facility] Alk phos 411(H) 40 - 130 Units/L [facility] ALT 38 7 - 55 Units/L [facility] AST 36 10 - 50 Units/L [facility] Blood 08/28/2024 7:48 AM MANAGER NON PROFIT 08/28/2024 7:58 AM MANAGER NON PROFIT us Devon Carlin MD LAB BLOOD ORDERABLES Fin al Result [facility] Department [place] [address] * eGFR (07/25/2024 7:35 AM MANAGER NON PROFIT) eGFR 67 >=60 mL/min/1. 73 m2 Comment: [...] last reviewed 2021. Blood 07/25/2024 7:35 AM MANAGER NON PROFIT 07/25/2024 7:40 AM MANAGER NON PROFIT us Devon Carlin MD LAB BLOOD ORDERABLES Fin al Result NERY [facility] [place] [address] * (ABNORMAL) Differential, auto (07/25/2024 7:35 AM MANAGER NON PROFIT) Neutrophil abs 5.7 1.5 - 6.5 K/cumm Comment:Testing performed by : [facility], [address] [place] [phone] Lymphocyte abs 1.3 0.8 - 3.3 K/cumm CERNER [facility] Comment:Testing performed by : [facility], [address] [place] [phone] Monocyte abs 0.3 0.2 - 0.8 K/cumm CERNER [facility] Comment:Testing performed by : [facility], [address] [place] [phone] Eosinophil abs 0.1 0.0 - 0.5 K/cumm CERNER [facility] Comment:Testing performed by : [facility], [address] [place] [phone] Basophil abs 0.2(H) 0.0 - 0.1 K/cumm CERNER [facility] Comment:Testing performed by : [facility], [address] [place] [phone] Neutrophil pct 75.6 % C[facility]ER [facility] Comment: Interpretive Data Percent cell count reference ranges are not reported, since discordance with absolute values may lead to misinterpretation of CBC data. Current Interpretive Data was last revised on 2017. Testing performed by: [facility], [address] [place] [phone] Lymphocyte pct 16.5 % CERNER BJ Comment: Interpretive Data Percent cell count reference ranges are not reported, since discordance with absolute values may lead to misinterpretation of CBC data. Current Interpretive Data was last revised on 2017. Testing performed by: [facility], [address] [place] [phone] Monocyte pct 4.2 % CERNER BJ Comment: Interpretive Data Percent cell count reference ranges are not reported, since discordance with absolute values may lead to misinterpretation of CBC data. Current Interpretive Data was last revised on 2017. Testing performed by: [facility], [address] [place] [phone] Eosinophil pct 1.7 % NERY ARAGON Comment: Interpretive Data Percent cell count reference ranges are not reported, since discordance with absolute values may lead to misinterpretation of CBC data. Current Interpretive Data was last revised on 2017. Testing performed by: [facility], [address] [place] [phone] Basophil pct 2.0 % NERY HUSAIN Comment: Interpretive Data Percent cell count reference ranges are not reported, since discordance with absolute values may lead to misinterpretation of CBC data. Current Interpretive Data was last revised on 2017. Testing performed by: [facility], [address] [place] [phone] Blood 07/25/2024 7:35 AM MANAGER NON PROFIT 07/25/2024 7:37 AM MANAGER NON PROFIT us Devon Carlin MD LAB BLOOD ORDERABLES Fin al Result NERY ARAGON [facility] [place] [address] * (ABNORMAL) CBC with auto differential (07/25/2024 7:35 AM MANAGER NON PROFIT) WBC 7.6 3.8 - 9.9 K/cumm Comment:Testing performed by : [facility], [address] [place] [phone] Hgb 9.2(L) 13.0 - 17.5 g/dL NERY ARAGON Comment:Testing performed by : [facility], [address] [place] [address] Hct 28.3(L) 38.9 - 50.3 % NERY ARAGON Comment:Testing performed by : [facility], [address] [place] [address] Plt 448(H) 150 - 400 K/cumm [facility] Comment:Testing performed by : [facility], [address] [place] [address] MPV 6.8 6.8 - 10.4 fL [facility] Comment:Testing performed by : [facility], [address] [place] [address] RBC 3.28(L) 4.30 - 5.80 M/cumm CERGENE BJ Comment:Testing performed by : [facility], [address] [place] [address] MCV 86.2 81.3 - 96.4 fL [facility] Comment:Testing performed by : [facility], [address] [place] [address] MCH 28.2 27.1 - 33.3 pg [facility] Comment:Testing performed by : [facility], [address] [place] [address] MCHC 32.7 32.3 - 35.7 g/dL [facility] Comment:Testing performed by : [facility], [address] [place] [address] RDW CV 19.3(H) 11.1 - 14.9 % [facility] Comment:Testing performed by : [facility], [address] [place] [address] NRBC abs 0.10(H) 0.00 - 0.01 K/cumm [facility] Comment:Testing performed by : [facility], [address] [place] [address] Blood 07/25/2024 7:35 AM MANAGER NON PROFIT 07/25/2024 7:37 AM MANAGER NON PROFIT us Devon Carlin MD LAB BLOOD ORDERABLES Fin al Result [facility] [place] [address] * (ABNORMAL) Comprehensive metabolic panel (07/25/2024 7:35 AM MANAGER NON PROFIT) Pathologist [facility] Sodium 139 135 - 145 mmol/L Potassium, pl 4.4 3.3 - 4.9 mmol/L [facility] Chloride 103 97 - 110 mmol/L [facility] CO2 27 22 - 32 mmol/L [facility] Anion gap 9 2 - 15 mmol/L [facility] BUN 19 6 - 25 mg/dL [facility] Creatinine 1.12 0.80 - 1.30 mg/dL [facility] Glucose 151 70 - 199 mg/dL [facility] Comment: Interpretive Data Fasting glucose >/= [...] 2022. Calcium 9.3 8.5 - 10.3 mg/dL [facility] Bilirubin, total 0.4 0.1 - 1.2 mg/dL [facility] Protein, pl 6.4(L) 6.5 - 8.5 g/dL [facility] Albumin 3.5 3.5 - 5.0 g/dL [facility] Alk phos 350(H) 40 - 130 Units/L [facility] ALT 16 7 - 55 Units/L [facility] AST 21 10 - 50 Units/L [facility] Blood 07/25/2024 7:35 AM MANAGER NON PROFIT 07/25/2024 7:40 AM MANAGER NON PROFIT us Devon Carlin MD LAB BLOOD ORDERABLES Fin al Result [facility] [place] [address] * Differential, auto (07/17/2024 8:05 AM MANAGER NON PROFIT) Pathologist [facility] Neutrophil abs 5.1 1.5 - 6.5 K/cumm Comment:Testing performed by : [facility], [address] [place] [phone] Lymphocyte abs 1.3 0.8 - 3.3 K/cumm [facility] Comment:Testing performed by : [facility], [address] [place] [phone] Monocyte abs 0.4 0.2 - 0.8 K/cumm [facility] Comment:Testing performed by : [facility], [address] [place], [place] [id number] Eosinophil abs 0.0 0.0 - 0.5 K/cumm [facility] Comment:Testing performed by : [facility], [address] [place], [place] [phone] Basophil abs 0.1 0.0 - 0.1 K/cumm [facility] Comment:Testing performed by : [facility], [address] [place], [place] [phone] Neutrophil pct 74.1 % CERNER [facility] Comment: Interpretive Data Percent cell count reference ranges are not reported, since discordance with absolute values may lead to misinterpretation of CBC data. Current Interpretive Data was last revised on 2017. Testing performed by: [facility], [address] [place] [phone] Lymphocyte pct 19.1 % CERNER [facility] Comment: Interpretive Data Percent cell count reference ranges are not reported, since discordance with absolute values may lead to misinterpretation of CBC data. Current Interpretive Data was last revised on 2017. Testing performed by: [facility], [address] [place] [phone] Monocyte pct 5.6 % CERNER [facility] Comment: Interpretive Data Percent cell count reference ranges are not reported, since discordance with absolute values may lead to misinterpretation of CBC data. Current Interpretive Data was last revised on 2017. Testing performed by: [facility], [address] [place] [phone] Eosinophil pct 0.4 % C[facility]ER [facility] Comment: Interpretive Data Percent cell count reference ranges are not reported, since discordance with absolute values may lead to misinterpretation of CBC data. Current Interpretive Data was last revised on 2017. Testing performed by: [facility], [address] [place] [address] Basophil pct 0.8 % NERY HUASIN Comment: Interpretive Data Percent cell count reference ranges are not reported, since discordance with absolute values may lead to misinterpretation of CBC data. Current Interpretive Data was last revised on 2017. Testing performed by: [facility], [address] [place] [address] Blood 07/17/2024 8:05 AM MANAGER NON PROFIT 07/17/2024 8:06 AM MANAGER NON PROFIT us Devon Carlin MD LAB BLOOD ORDERABLES Fin al Result NERY HUSAIN [facility] [place] [address] * (ABNORMAL) CBC with auto differential (07/17/2024 8:05 AM MANAGER NON PROFIT) WBC 6.9 3.8 - 9.9 K/cumm Comment:Testing performed by : [facility], [address] [place] [address] Hgb 9.8(L) 13.0 - 17.5 g/dL NERY HUSAIN Comment:Testing performed by : [facility], [address] [place] [address] Hct 30.1(L) 38.9 - 50.3 % NERY HUSAIN Comment:Testing performed by : [facility], [address] [place] [address] Plt 441(H) 150 - 400 K/cumm NERY HUSAIN Comment:Testing performed by : [facility], [address] [place] [address] MPV 6.6(L) 6.8 - 10.4 fL NERY HUSAIN Comment:Testing performed by : [facility], [address] [place] [address] RBC 3.45(L) 4.30 - 5.80 M/cumm NERY [facility] Comment:Testing performed by : [facility], [address] [place] [address] MCV 87.2 81.3 - 96.4 fL [facility] Comment:Testing performed by : [facility], [address] [place] [address] MCH 28.4 27.1 - 33.3 pg [facility] Comment:Testing performed by : [facility], [address] [place] [address] MCHC 32.6 32.3 - 35.7 g/dL NERY [facility] Comment:Testing performed by : [facility], [address] [place] [address] RDW CV 18.8(H) 11.1 - 14.9 % [facility] Comment:Testing performed by : [facility], [address] [place] [address] NRBC abs 0.10(H) 0.00 - 0.01 K/cumm [facility] Comment:Testing performed by : [facility], [address] [place] [address] Blood 07/17/2024 8:05 AM MANAGER NON PROFIT 07/17/2024 8:06 AM MANAGER NON PROFIT us Devon Carlin MD LAB BLOOD ORDERABLES Fin al Result [facility] [place] [address] * eGFR (07/17/2024 7:58 AM MANAGER NON PROFIT) eGFR 63 >=60 mL/min/1. 73 m2 Comment: [...] last reviewed 2021. Blood 07/17/2024 7:58 AM MANAGER NON PROFIT 07/17/2024 8:07 AM MANAGER NON PROFIT Devon Carlin MD LAB BLOOD ORDERABLES Fin al Result Performing Organization Address [facility] de Phone Number [facility] Department [place] [address] * (ABNORMAL) Total testosterone (07/17/2024 7:58 AM MANAGER NON PROFIT) Testosterone <5.0(L) 193.0 - 740.0 ng/dL Blood 07/17/2024 7:58 AM MANAGER NON PROFIT 07/17/2024 8:21 AM MANAGER NON PROFIT Devon Carlin MD LAB BLOOD ORDERABLES Fin al Result Performing Organization Address [facility] Co de Phone Number [facility] Department [place] [address] * (ABNORMAL) PSA diagnostic (07/17/2024 7:58 AM MANAGER NON PROFIT) PSA-Total 132.00(H) <=6.20 ng/mL Comment: Interpretive Data [...] last revised 21. Blood 07/17/2024 7:58 AM MANAGER NON PROFIT 07/17/2024 8:07 AM MANAGER NON PROFIT us Devon Carlin MD LAB BLOOD ORDERABLES Fin al Result [facility] [place] [address] * (ABNORMAL) Comprehensive metabolic panel (07/17/2024 7:58 AM MANAGER NON PROFIT) Sodium 142 135 - 145 mmol/L Potassium, pl 3.8 3.3 - 4.9 mmol/L [facility] Chloride 105 97 - 110 mmol/L [facility] CO2 26 22 - 32 mmol/L [facility] Anion gap 11 2 - 15 mmol/L [facility] BUN 19 6 - 25 mg/dL [facility] Creatinine 1.18 0.80 - 1.30 mg/dL [facility] Glucose 184 70 - 199 mg/dL [facility] Comment: Interpretive Data Fasting glucose >/= [...] 2022. Calcium 9.3 8.5 - 10.3 mg/dL [facility] Bilirubin, total 0.5 0.1 - 1.2 mg/dL [facility] Protein, pl 6.8 6.5 - 8.5 g/dL [facility] Albumin 3.6 3.5 - 5.0 g/dL [facility] Alk phos 353(H) 40 - 130 Units/L [facility] ALT 12 7 - 55 Units/L [facility] AST 21 10 - 50 Units/L [facility] Blood 07/17/2024 7:58 AM MANAGER NON PROFIT 07/17/2024 8:07 AM MANAGER NON PROFIT Devon Carlin MD LAB BLOOD ORDERABLES Fin al Result Performing Organization Address City/[facility] Co de Phone Number [facility] [employer] [place] [employer] [place] [place] [address] * eGFR (07/03/2024 7:25 AM MANAGER NON PROFIT) eGFR 60 >=60 mL/min/1. 73 m2 Comment: [...] last reviewed 2021. Blood 07/03/2024 7:25 AM MANAGER NON PROFIT 07/03/2024 7:27 AM MANAGER NON PROFIT Devon Carlin MD LAB BLOOD ORDERABLES Fin al Result Performing Organization Address [facility] Co de Phone Number [facility] Department [place] [address] * (ABNORMAL) Comprehensive metabolic panel (07/03/2024 7:25 AM MANAGER NON PROFIT) Pathologist [facility] Sodium 137 135 - 145 mmol/L Potassium, pl 4.7 3.3 - 4.9 mmol/L [facility] Chloride 103 97 - 110 mmol/L [facility] CO2 28 22 - 32 mmol/L [facility] Anion gap 6 2 - 15 mmol/L [facility] BUN 22 6 - 25 mg/dL [facility] Creatinine 1.22 0.80 - 1.30 mg/dL [facility] Glucose 129 70 - 199 mg/dL [facility] Comment: Interpretive Data Fasting glucose >/= [...] 2022. Calcium 9.5 8.5 - 10.3 mg/dL [facility] Bilirubin, total 0.3 0.1 - 1.2 mg/dL [facility] Protein, pl 6.5 6.5 - 8.5 g/dL [facility] Albumin 3.6 3.5 - 5.0 g/dL [facility] Alk phos 443(H) 40 - 130 Units/L [facility] ALT 18 7 - 55 Units/L [facility] AST 25 10 - 50 Units/L [facility] Blood 07/03/2024 7:25 AM MANAGER NON PROFIT 07/03/2024 7:27 AM MANAGER NON PROFIT us Devon Carlin MD LAB BLOOD ORDERABLES Fin al Result [facility] [place] [address] * (ABNORMAL) CBC with auto differential (07/03/2024 7:23 AM MANAGER NON PROFIT) Pathologist [facility] WBC 8.0 3.8 - 9.9 K/cumm Comment:Testing performed by : [facility], [address] [place], [place] [phone] Hgb 9.6(L) 13.0 - 17.5 g/dL CERNER BJ Comment:Testing performed by : [facility], [address] [place], [place] [phone] Hct 29.9(L) 38.9 - 50.3 % CERNER BJ Comment:Testing performed by : [facility], [address] [place], [place] [phone] Plt 384 150 - 400 K/cumm CERNER BJ Comment:Testing performed by : [facility], [address] [place], [place] [phone] MPV 7.2 6.8 - 10.4 fL CERNER BJ Comment:Testing performed by : [facility], [address] [place], [place] [phone] RBC 3.33(L) 4.30 - 5.80 M/cumm CERNER BJ Comment:Testing performed by : [facility], [address] [place], [place] [phone] MCV 89.7 81.3 - 96.4 fL CERNER BJ Comment:Testing performed by : [facility], [address] [place], [place] [phone] MCH 28.9 27.1 - 33.3 pg CERNER BJ Comment:Testing performed by : [facility], [address] [place] [address] MCHC 32.2(L) 32.3 - 35.7 g/dL CERNER BJ Comment:Testing performed by : [facility], [address] [place] [address] RDW CV 18.4(H) 11.1 - 14.9 % CERNER BJ Comment:Testing performed by : [facility], [address] [place] [address] NRBC abs 0.00 0.00 - 0.01 K/cumm CERNER BJ Comment:Testing performed by : [facility], [address] [place], [place] [phone] Blood 07/03/2024 7:23 AM MANAGER NON PROFIT 07/03/2024 7:27 AM MANAGER NON PROFIT us Deovn Carlin MD LAB BLOOD ORDERABLES Fin al Result NERY HUSAIN [facility] [place] [address] * (ABNORMAL) Manual Differential (07/03/2024 7:23 AM MANAGER NON PROFIT) Cells Counted 199 Comment:Testing performed by : [facility], [address] [place] [phone] Neutrophil abs 6.1 1.5 - 6.5 K/cumm CERGENE BJ Comment:Testing performed by : [facility], [address] [place], [place] [phone] Lymphocyte abs 1.0 0.8 - 3.3 K/cumm CERGENE BJ Comment:Testing performed by : [facility], [address] [place] [phone] Monocyte abs 0.2 0.2 - 0.8 K/cumm CERGENE BJ Comment:Testing performed by : [facility], [address] [place] [phone] Eosinophil abs 0.5 0.0 - 0.5 K/cumm CERGENE BJ Comment:Testing performed by : [facility], [address] [place] [phone] Basophil abs 0.1 0.0 - 0.1 K/cumm CERNER BJ Comment:Testing performed by : [facility], [address] [place] [phone] Neutrophil pct 76.0 % CERGENE BJ Comment: Interpretive Data Percent cell count reference ranges are not reported, since discordance with absolute values may lead to misinterpretation of CBC data. Current Interpretive Data was last revised on 2017. Testing performed by: [facility], [address] [place] [phone] Lymphocyte pct 12.0 % C[facility]ER [facility] Comment: Interpretive Data Percent cell count reference ranges are not reported, since discordance with absolute values may lead to misinterpretation of CBC data. Current Interpretive Data was last revised on 2017. Testing performed by: [facility], [address] [place] [phone] Monocyte pct 2.0 % C[facility]ER [facility] Comment: Interpretive Data Percent cell count reference ranges are not reported, since discordance with absolute values may lead to misinterpretation of CBC data. Current Interpretive Data was last revised on 2017. Testing performed by: [facility], [address] [place] [phone] Eosinophil pct 6.0 % C[facility]ER [facility] Comment: Interpretive Data Percent cell count reference ranges are not reported, since discordance with absolute values may lead to misinterpretation of CBC data. Current Interpretive Data was last revised on 2017. Testing performed by: [facility], [address] [place] [phone] Basophil pct 1.0 % C[facility]ER [facility] Comment: Interpretive Data Percent cell count reference ranges are not reported, since discordance with absolute values may lead to misinterpretation of CBC data. Current Interpretive Data was last revised on 2017. Testing performed by: [facility], [address] [place] [phone] Metamyelocyte pct 3.0 % C[facility]ER [facility] Comment:Testing performed by : [facility], [address] [place] [phone] Myelocyte pct 1.0 % C[facility]ER [facility] Comment:Testing performed by : [facility], [address] [place] [phone] RBC morphology NRBCs present(A) [facility]ER [facility] Comment:Testing performed by : [facility], [address] [place] [phone] Polychromasia 1+(A) [facility] Comment:Testing performed by : [facility], [address] [place] [phone] Anisocytosis 1+(A) NERY [facility] Comment:Testing performed by : [facility], [address] [place] [address] Microcytes 1+(A) NERY [facility] Comment:Testing performed by : [facility], [address] [place] [phone] Macrocytes 1+(A) NERY [facility] Comment:Testing performed by : [facility], [facility] [place] [address] Platelet estimate Adequate NERY [facility] Comment:Testing performed by : [facility], [facility] [place] [address] Blood 07/03/2024 7:23 AM MANAGER NON PROFIT 07/03/2024 7:27 AM MANAGER NON PROFIT us Devon Carlin MD LAB BLOOD ORDERABLES Fin al Result [facility] [place] [address] * eGFR (06/26/2024 7:50 AM MANAGER NON PROFIT) eGFR 67 >=60 mL/min/1. 73 m2 Comment: [...] last reviewed 2021. Blood 06/26/2024 7:50 AM MANAGER NON PROFIT 06/26/2024 7:57 AM MANAGER NON PROFIT us Devon Carlin MD LAB BLOOD ORDERABLES Fin al Result [facility] [place] [address] * Differential, auto (06/26/2024 7:50 AM MANAGER NON PROFIT) Neutrophil abs 5.5 1.5 - 6.5 K/cumm Comment:Testing performed by : [facility], [address] [place] [phone] Lymphocyte abs 1.7 0.8 - 3.3 K/cumm CERNER [facility] Comment:Testing performed by : [facility], [address] [place] [phone] Monocyte abs 0.4 0.2 - 0.8 K/cumm [facility] Comment:Testing performed by : [facility], [address] [place] [phone] Eosinophil abs 0.1 0.0 - 0.5 K/cumm [facility] Comment:Testing performed by : [facility], [address] [place] [phone] Basophil abs 0.1 0.0 - 0.1 K/cumm CERNER [facility] Comment:Testing performed by : [facility], [address] [place] [phone] Neutrophil pct 70.1 % CERNER BJ Comment: Interpretive Data Percent cell count reference ranges are not reported, since discordance with absolute values may lead to misinterpretation of CBC data. Current Interpretive Data was last revised on 2017. Testing performed by: [facility], [address] [place] [phone] Lymphocyte pct 22.1 % CERNER [facility]J Comment: Interpretive Data Percent cell count reference ranges are not reported, since discordance with absolute values may lead to misinterpretation of CBC data. Current Interpretive Data was last revised on 2017. Testing performed by: [facility], [address] [place] [phone] Monocyte pct 5.3 % NERY HUSAIN Comment: Interpretive Data Percent cell count reference ranges are not reported, since discordance with absolute values may lead to misinterpretation of CBC data. Current Interpretive Data was last revised on 2017. Testing performed by: [facility], [address] [place] [phone] Eosinophil pct 1.3 % NERY HUSAIN Comment: Interpretive Data Percent cell count reference ranges are not reported, since discordance with absolute values may lead to misinterpretation of CBC data. Current Interpretive Data was last revised on 2017. Testing performed by: [facility], [address] [place] [phone] Basophil pct 1.2 % NERY HUSAIN Comment: Interpretive Data Percent cell count reference ranges are not reported, since discordance with absolute values may lead to misinterpretation of CBC data. Current Interpretive Data was last revised on 2017. Testing performed by: [facility], [address] [place] [address] Blood 06/26/2024 7:50 AM MANAGER NON PROFIT 06/26/2024 7:52 AM MANAGER NON PROFIT us Devon Carlin MD LAB BLOOD ORDERABLES Fin al Result [facility] [place] [address] * (ABNORMAL) CBC with auto differential (06/26/2024 7:50 AM MANAGER NON PROFIT) WBC 7.9 3.8 - 9.9 K/cumm Comment:Testing performed by : [facility], [address] [place] [address] Hgb 10.3(L) 13.0 - 17.5 g/dL NERY HUSAIN Comment:Testing performed by : [facility], [address] [place] [address] Hct 32.8(L) 38.9 - 50.3 % CERNER BJ Comment:Testing performed by : [facility], [address] [place] [address] Plt 447(H) 150 - 400 K/cumm CERNER BJ Comment:Testing performed by : [facility], [address] [place] [address] MPV 6.7(L) 6.8 - 10.4 fL CERNER BJ Comment:Testing performed by : [facility], [address] [place] [address] RBC 3.59(L) 4.30 - 5.80 M/cumm CERNER BJ Comment:Testing performed by : [facility], [address] [place] [address] MCV 91.4 81.3 - 96.4 fL CERNER BJ Comment:Testing performed by : [facility], [address] [place] [address] MCH 28.7 27.1 - 33.3 pg CERNER BJ Comment:Testing performed by : [facility], [address] [place] [address] MCHC 31.3(L) 32.3 - 35.7 g/dL CERNER BJ Comment:Testing performed by : [facility], [address] [place] [address] RDW CV 18.4(H) 11.1 - 14.9 % CERNER BJ Comment:Testing performed by : [facility], [address] [place] [address] NRBC abs 0.00 0.00 - 0.01 K/cumm CERNER BJ Comment:Testing performed by : [facility], [address] [place] [address] Blood 06/26/2024 7:50 AM MANAGER NON PROFIT 06/26/2024 7:52 AM MANAGER NON PROFIT us Devon Carlin MD LAB BLOOD ORDERABLES Fin al Result Performing Organization Address City/State/[facility] Co de Phone Number [facility] Department [place] [employer] [place] [address] * (ABNORMAL) Total testosterone (06/26/2024 7:50 AM MANAGER NON PROFIT) Testosterone <5.0(L) 193.0 - 740.0 ng/dL Blood 06/26/2024 7:50 AM MANAGER NON PROFIT 06/26/2024 8:33 AM MANAGER NON PROFIT Devon Carlin MD LAB BLOOD ORDERABLES Fin al Result Performing Organization Address [facility] de Phone Number NERY [facility] [place] [employer] [place] [address] * (ABNORMAL) PSA diagnostic (06/26/2024 7:50 AM MANAGER NON PROFIT) PSA-Total 129.00(H) <=6.20 ng/mL Comment: Interpretive Data [...] last revised 21. Blood 06/26/2024 7:50 AM MANAGER NON PROFIT 06/26/2024 7:57 AM MANAGER NON PROFIT Devon Carlin MD LAB BLOOD ORDERABLES Fin al Result Performing Organization Address [facility] Co de Phone Number NERY [facility] Department [place] [address] * (ABNORMAL) Comprehensive metabolic panel (06/26/2024 7:50 AM MANAGER NON PROFIT) Sodium 141 135 - 145 mmol/L Potassium, pl 5.1(H) 3.3 - 4.9 mmol/L [facility] Chloride 105 97 - 110 mmol/L [facility] CO2 28 22 - 32 mmol/L [facility] Anion gap 8 2 - 15 mmol/L [facility] BUN 19 6 - 25 mg/dL [facility] Creatinine 1.12 0.80 - 1.30 mg/dL [facility] Glucose 154 70 - 199 mg/dL [facility] Comment: Interpretive Data Fasting glucose >/= [...] 2022. Calcium 9.7 8.5 - 10.3 mg/dL [facility] Bilirubin, total 0.4 0.1 - 1.2 mg/dL [facility] Protein, pl 7.2 6.5 - 8.5 g/dL [facility] Albumin 3.9 3.5 - 5.0 g/dL [facility] Alk phos 535(H) 40 - 130 Units/L [facility] ALT 16 7 - 55 Units/L [facility] AST 23 10 - 50 Units/L [facility] Blood 06/26/2024 7:50 AM MANAGER NON PROFIT 06/26/2024 7:57 AM MANAGER NON PROFIT us Devon Carlin MD LAB BLOOD ORDERABLES Fin al Result [facility] Department of Laboratories [place], [place] [id number] * eGFR (06/12/2024 8:20 AM MANAGER NON PROFIT) eGFR 72 >=60 mL/min/1. 73 m2 Comment: [...] last reviewed 2021. Blood 06/12/2024 8:20 AM MANAGER NON PROFIT 06/12/2024 8:28 AM MANAGER NON PROFIT us Devon aCrlin MD LAB BLOOD ORDERABLES Fin al Result [facility] [place] [address] * (ABNORMAL) Comprehensive metabolic panel (06/12/2024 8:20 AM MANAGER NON PROFIT) Sodium 137 135 - 145 mmol/L Potassium, pl 4.6 3.3 - 4.9 mmol/L [facility] Chloride 102 97 - 110 mmol/L [facility] CO2 28 22 - 32 mmol/L [facility] Anion gap 7 2 - 15 mmol/L [facility] BUN 20 6 - 25 mg/dL [facility] Creatinine 1.05 0.80 - 1.30 mg/dL [facility] Glucose 140 70 - 199 mg/dL [facility] Comment: Interpretive Data Fasting glucose >/= [...] 2022. Calcium 9.5 8.5 - 10.3 mg/dL [facility] Bilirubin, total 0.3 0.1 - 1.2 mg/dL [facility] Protein, pl 6.8 6.5 - 8.5 g/dL [facility] Albumin 3.7 3.5 - 5.0 g/dL [facility] Alk phos 572(H) 40 - 130 Units/L [facility] ALT 21 7 - 55 Units/L [facility] AST 27 10 - 50 Units/L [facility] Blood 06/12/2024 8:20 AM MANAGER NON PROFIT 06/12/2024 8:28 AM MANAGER NON PROFIT Narrative CERNER [facility] - 06/12/2024 8:59 AM MANAGER NON PROFIT Has the patient fasted?->No us Devon Carlin MD LAB BLOOD ORDERABLES Fin al Result [facility] Department [place] [address] * Differential, auto (06/12/2024 7:24 AM MANAGER NON PROFIT) Neutrophil abs 5.3 1.5 - 6.5 K/cumm Comment:Testing performed by : [facility], [address] [place] [phone] Lymphocyte abs 2.2 0.8 - 3.3 K/cumm [facility]ERNER [facility] Comment:Testing performed by : [facility], [address] [place] [phone] Monocyte abs 0.4 0.2 - 0.8 K/cumm CERNER BJ Comment:Testing performed by : [facility], [address] [place] [phone] Eosinophil abs 0.5 0.0 - 0.5 K/cumm CERNER BJ Comment:Testing performed by : [facility], [address] [place] [phone] Basophil abs 0.1 0.0 - 0.1 K/cumm CERNER BJ Comment:Testing performed by : [facility], [address] [place] [phone] Neutrophil pct 61.8 % CERNER BJ Comment: Interpretive Data Percent cell count reference ranges are not reported, since discordance with absolute values may lead to misinterpretation of CBC data. Current Interpretive Data was last revised on 2017. Testing performed by: [facility], [address] [place], [place] [id number] Lymphocyte pct 25.8 % CERNER BJ Comment: Interpretive Data Percent cell count reference ranges are not reported, since discordance with absolute values may lead to misinterpretation of CBC data. Current Interpretive Data was last revised on 2017. Testing performed by: [facility], [address] [place], [place] [phone] Monocyte pct 4.9 % CERNER BJ Comment: Interpretive Data Percent cell count reference ranges are not reported, since discordance with absolute values may lead to misinterpretation of CBC data. Current Interpretive Data was last revised on 2017. Testing performed by: [facility], [address] [place], [place] [phone] Eosinophil pct 6.1 % CERNER BJ Comment: Interpretive Data Percent cell count reference ranges are not reported, since discordance with absolute values may lead to misinterpretation of CBC data. Current Interpretive Data was last revised on 2017. Testing performed by: [facility], [address] [place] [phone] Basophil pct 1.4 % CERNER BJ Comment: Interpretive Data Percent cell count reference ranges are not reported, since discordance with absolute values may lead to misinterpretation of CBC data. Current Interpretive Data was last revised on 2017. Testing performed by: [facility], [address] [place], [place] [phone] Blood 06/12/2024 7:24 AM MANAGER NON PROFIT 06/12/2024 7:28 AM MANAGER NON PROFIT Devon Carlin MD LAB BLOOD ORDERABLES Fin al Result NERY HUSAIN [facility] Department [place] [address] * (ABNORMAL) CBC with auto differential (06/12/2024 7:24 AM MANAGER NON PROFIT) WBC 8.6 3.8 - 9.9 K/cumm Comment:Testing performed by : [facility], [address] [place] [address] Hgb 9.3(L) 13.0 - 17.5 g/dL NERY HUSAIN Comment:Testing performed by : [facility], [address] [place] [address] Hct 28.8(L) 38.9 - 50.3 % NERY HUSAIN Comment:Testing performed by : [facility], [address] [place] [address] Plt 358 150 - 400 K/cumm CERGENE HUSAIN Comment:Testing performed by : [facility], [address] [place] [address] MPV 7.0 6.8 - 10.4 fL CERGENE BJ Comment:Testing performed by : [facility], [address] [place] [address] RBC 3.12(L) 4.30 - 5.80 M/cumm CERGENE HUSAIN Comment:Testing performed by : [facility], [address] [place] [address] MCV 92.2 81.3 - 96.4 fL CERGENE BJ Comment:Testing performed by : [facility], [address] [place] [address] MCH 29.9 27.1 - 33.3 pg CERGENE BJ Comment:Testing performed by : [facility], [address] [place] [address] MCHC 32.4 32.3 - 35.7 g/dL CERGENE BJ Comment:Testing performed by : [facility], [address] [place] [address] [place] [phone] RDW CV 18.4(H) 11.1 - 14.9 % [facility] Comment:Testing performed by : [facility], [address] [place] [phone] NRBC abs 0.00 0.00 - 0.01 K/cumm [facility] Comment:Testing performed by : [facility], [address] [place] [phone] Blood 06/12/2024 7:24 AM MANAGER NON PROFIT 06/12/2024 7:28 AM MANAGER NON PROFIT Devon Carlin MD LAB BLOOD ORDERABLES Fin al Result [facility] [place] [address] * (ABNORMAL) eGFR (06/05/2024 8:47 AM MANAGER NON PROFIT) eGFR 55(L) >=60 mL/min/1. 73 m2 Comment: [...] last reviewed 2021. Blood 06/05/2024 8:47 AM MANAGER NON PROFIT 06/05/2024 8:58 AM MANAGER NON PROFIT us Devon Carlin MD LAB BLOOD ORDERABLES Fin al Result [facility] [place] [address] * Differential, auto (06/05/2024 8:47 AM MANAGER NON PROFIT) Neutrophil abs 4.8 1.5 - 6.5 K/cumm Comment:Testing performed by : [facility], [address] [place] [phone] Lymphocyte abs 1.5 0.8 - 3.3 K/cumm CERNER BJ Comment:Testing performed by : [facility], [address] [place], [place] [phone] Monocyte abs 0.6 0.2 - 0.8 K/cumm CERNER BJ Comment:Testing performed by : [facility], [address] [place] [phone] Eosinophil abs 0.2 0.0 - 0.5 K/cumm CERNER BJ Comment:Testing performed by : [facility], [address] [place] [phone] Basophil abs 0.1 0.0 - 0.1 K/cumm CERNER BJ Comment:Testing performed by : [facility], [address] [place] [phone] Neutrophil pct 66.8 % CERNER BJ Comment: Interpretive Data Percent cell count reference ranges are not reported, since discordance with absolute values may lead to misinterpretation of CBC data. Current Interpretive Data was last revised on 2017. Testing performed by: [facility], [address] [place] [phone] Lymphocyte pct 21.0 % CERNER BJ Comment: Interpretive Data Percent cell count reference ranges are not reported, since discordance with absolute values may lead to misinterpretation of CBC data. Current Interpretive Data was last revised on 2017. Testing performed by: [facility], [address] [place] [phone] Monocyte pct 8.4 % CERNER BJ Comment: Interpretive Data Percent cell count reference ranges are not reported, since discordance with absolute values may lead to misinterpretation of CBC data. Current Interpretive Data was last revised on 2017. Testing performed by: [facility], [address] [place] [phone] Eosinophil pct 2.4 % NERY ARAGON Comment: Interpretive Data Percent cell count reference ranges are not reported, since discordance with absolute values may lead to misinterpretation of CBC data. Current Interpretive Data was last revised on 2017. Testing performed by: [facility], [address] [place] [phone] Basophil pct 1.4 % NERY HUSAIN Comment: Interpretive Data Percent cell count reference ranges are not reported, since discordance with absolute values may lead to misinterpretation of CBC data. Current Interpretive Data was last revised on 2017. Testing performed by: [facility], [address] [place] [phone] Blood 06/05/2024 8:47 AM MANAGER NON PROFIT 06/05/2024 8:48 AM MANAGER NON PROFIT us Devon Carlin MD LAB BLOOD ORDERABLES Fin al Result NERY HUSAIN [facility] [place] [address] * (ABNORMAL) CBC with auto differential (06/05/2024 8:47 AM MANAGER NON PROFIT) WBC 7.2 3.8 - 9.9 K/cumm Comment:Testing performed by : [facility], [address] [place] [phone] Hgb 9.7(L) 13.0 - 17.5 g/dL NERY ARAGON Comment:Testing performed by : [facility], [address] [place] [phone] Hct 30.3(L) 38.9 - 50.3 % NERY ARAGON Comment:Testing performed by : [facility], [address] [place] [address] Plt 398 150 - 400 K/cumm CERNER BJ Comment:Testing performed by : [facility], [address] [place] [address] MPV 6.5(L) 6.8 - 10.4 fL CERNER BJ Comment:Testing performed by : [facility], [address] [place] [address] RBC 3.27(L) 4.30 - 5.80 M/cumm CERNER BJ Comment:Testing performed by : [facility], [address] [place] [address] MCV 92.6 81.3 - 96.4 fL CERNER BJ Comment:Testing performed by : [facility], [address] [place] [address] MCH 29.7 27.1 - 33.3 pg CERNER BJ Comment:Testing performed by : [facility], [address] [place] [address] MCHC 32.1(L) 32.3 - 35.7 g/dL CERNER BJ Comment:Testing performed by : [facility], [address] [place] [address] RDW CV 18.4(H) 11.1 - 14.9 % CERNER BJ Comment:Testing performed by : [facility], [address] [place] [address] NRBC abs 0.00 0.00 - 0.01 K/cumm CERNER BJ Comment:Testing performed by : [facility], [address] [place] [address] Blood 06/05/2024 8:47 AM MANAGER NON PROFIT 06/05/2024 8:48 AM MANAGER NON PROFIT us Devon Carlin MD LAB BLOOD ORDERABLES Fin al Result [facility] Department [place] [address] * (ABNORMAL) Total testosterone (06/05/2024 8:47 AM MANAGER NON PROFIT) Pathologist [facility] Testosterone <5.0(L) 193.0 - 740.0 ng/dL Blood 06/05/2024 8:47 AM MANAGER NON PROFIT 06/05/2024 9:17 AM MANAGER NON PROFIT Devon Carlin MD LAB BLOOD ORDERABLES Fin al Result Performing Organization Address [facility] de Phone Number [facility] [place] [address] * (ABNORMAL) PSA diagnostic (06/05/2024 8:47 AM MANAGER NON PROFIT) [facility] PSA-Total 141.00(H) <=6.20 ng/mL Comment: Interpretive Data [...] last revised 21. Blood 06/05/2024 8:47 AM MANAGER NON PROFIT 06/05/2024 8:58 AM MANAGER NON PROFIT Devon Carlin MD LAB BLOOD ORDERABLES Fin al Result Performing Organization Address [facility] de Phone Number [facility] Department [place] [address] * (ABNORMAL) Comprehensive metabolic panel (06/05/2024 8:47 AM MANAGER NON PROFIT) [facility] Sodium 140 135 - 145 mmol/L Potassium, pl 4.3 3.3 - 4.9 mmol/L [facility] Chloride 103 97 - 110 mmol/L [facility] CO2 27 22 - 32 mmol/L [facility] Anion gap 10 2 - 15 mmol/L [facility] BUN 21 6 - 25 mg/dL [facility] Creatinine 1.32(H) 0.80 - 1.30 mg/dL [facility] Glucose 125 70 - 199 mg/dL [facility] Comment: Interpretive Data Fasting glucose >/= [...] 2022. Calcium 9.4 8.5 - 10.3 mg/dL [facility] Bilirubin, total 0.3 0.1 - 1.2 mg/dL [facility] Protein, pl 6.7 6.5 - 8.5 g/dL [facility] Albumin 3.8 3.5 - 5.0 g/dL [facility] Alk phos 664(H) 40 - 130 Units/L [facility] ALT 16 7 - 55 Units/L [facility] AST 22 10 - 50 Units/L [facility] Blood 06/05/2024 8:47 AM MANAGER NON PROFIT 06/05/2024 8:58 AM MANAGER NON PROFIT Devon Carlin MD LAB BLOOD ORDERABLES Fin al Result [facility] [place] [address] from Last 3 Months Insurance MEDICARE IDPA MEDICARE MEDICARE Advance Directives For more information, please contact: [phone] Documents on File Type Date Recorded Patient Product Safety Head Expl anation Advance Directives and Livin g Will 12/27/2023 11:23 AM * Full Code (Latest Code Status on File) Date Activated Date Inactivated Comments 01/17/2024 10:18 PM 01/19/2024 6:34 PM * Full Code Date Activated Date Inactivated Comments 12/18/2023 11:47 PM 12/21/2023 7:08 PM Care Teams Blocklayer Relationship Specialty Start Date End Date Saw Ga MD [address] [place] [id number] PCP - General 10/20/16 Devon Carlin MD [address] [facility], [address] [address] [place] [address] Medical Oncology 12/21/23
--- OUTSIDE RECORDS SUMMARY | 2024-08-31 18:19 | XMS_ITS | Encounter Summary ---
Author Organization [facility] Address [address] [place] [address] Care Team Providers Care Ice Guard Skating Rink Name Role Phone Saw Ga MD Primary Care Provider Encounter Details Date Type Department Care Team (Late st Contact Info) Description 01/26/2006 Outpatient Historical [facility] Trauma and General Surgery [address] [facility] [address] [facility] [place] [address] Jim Gonzalez MD [address] [facility] [address] [place] [address] Social History Tobacco Use Types Packs/Day Years Used Date Smoking Tobacco: Never Assessed Sex and Gender Information Value Date Recorded Sex Assigned at Not on file Legal Sex Male 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 diff 07/30/2024 07/30/2024 07/31/2024 7:00 PM CYBER SYSTEMS ENGINEER documented as of this encounter Care Teams Ice Guard Skating Rink Relationship Specialty Start Date End Date Saw Ga MD [address] [place] [phone] PCP - General Family Practice 02/17/19 documented as of this encounter
--- OUTSIDE RECORDS SUMMARY | 2024-08-31 18:19 | XMS_ITS | Encounter Summary ---
Author Organization [email or web address] Address [address] [place] [address] Care Team Providers Care Material Loader Name Role Phone Saw Ga MD Primary Care Provider [phone] Encounter Details Date Type Department Care Team (Late st Contact Info) Description 01/13/2006 Outpatient Historical [facility] [place] [address] [place] [address] Cervical Spondylosis without Myelopathy (Primary Dx) Social History Tobacco Use Types Packs/Day Years Used Date Smoking Tobacco: Never Assessed Sex and Gender Information Value Date Recorded Sex Assigned at Not on file Legal Sex Male 3:17 AM BEER BREWER Gender Identity Not on file Sexual Orientation Not on file documented as of this encounter Plan of Treatment Not on file documented as of this encounter Visit Diagnoses Diagnosis Cervical spondylosis without myelopathy- Primary documented in this encounter Additional Health Concerns Infection Onset Date Last Indicated Resolved Time R/O C. diff 07/30/2024 07/30/2024 07/31/2024 7:00 PM BEER BREWER documented as of this encounter Care Teams Material Loader Relationship Specialty Start Date End Date Saw Ga MD [address] [place] [phone] PCP - General Family Practice 02/17/19 documented as of this encounter
--- OUTSIDE RECORDS SUMMARY | 2024-08-31 18:19 | XMS_ITS | Clinical Summary ---
Author Organization [facility] Administrative Offices Address [address] [place] [address] Care Team Providers Care Recreational Facilities Motel Manager Name Role Phone Saw Ga MD Primary Care Provider [phone] Allergies No known active allergies Medications metFORMIN (GLUCOPHAGE) 1,000 mg tablet Take 1,000 mg by mouth 2 times daily with meals. Active atorvastatin (LIPITOR) 20 mg tablet TOME MIKY TABLETA TODOS LOS KAY 2 Active DULoxetine (CYMBALTA) 60 mg Capsule, Delayed Release(E.C.) TOME MIKY C PSULA TODOS LOS D 2 Active esomeprazole (NexIUM) 40 mg Capsule, Delayed Release(E.C.) Take 40 mg by mouth daily. 2 Active flecainide (TAMBOCOR) 100 mg tablet TOME MIKY TABLETA DOS VECES AL D A 2 Active lubiprostone (AMITIZA) 24 mcg Capsule TOME MIKY C PSULA DOS VECES AL D A 2 Active abiraterone (ZYTIGA) 250 mg tablet TOME 4 TABLETAS POR VIA ORAL MIKY VEZ AL REENA. 120 Tablet 4 4 Active clotrimazole (LOTRIMIN) 1 % Cream Apply to affected area 2 times daily. 60 Gram 1 4 Active enzalutamide (XTANDI) 40 mg Tablet Take 3 Tablets (120 mg) by mouth daily. 90 Tablet 4 Active polyethylene glycol 3350 (MIRALAX) 17 gram/dose Powder Take 17 Grams by mouth 1 time daily as needed for Constipation. Dissolve in 8 ounces of fluid and drink entire liquid Active metoprolol succinate (TOPROL XL) 25 mg Extended Release 24 hour tablet Take 25 mg by mouth daily. Active traZODone (DESYREL) 50 mg tablet Take 100 mg by mouth nightly as needed for Insomnia. Active acetaminophen (TYLENOL) 325 mg tablet Take 2 Tablets (650 mg) by mouth 4 times daily. Active oxyCODONE (ROXICODONE) 5 mg tabletIndicatio ns:Right inguinal hernia Take 1 Tablet (5 mg) by mouth every 4 hours as needed for Pain. Max Daily Amount: 30 mg 20 Tablet 5 08/07/19 Active Problems Problem Noted Date Diagnosed Date Hydroureter on left 08/01/2024 Right inguinal hernia 07/30/2024 Paroxysmal atrial fibrillation 07/30/2024 Hydroureteronephrosis 07/30/2024 Hyperlipidemia 07/30/2024 Type 2 diabetes mellitus wit hout complication, without long-term current use of insulin 07/30/2024 Gastroesophageal reflux disease without esophagi tis 07/30/2024 Anemia due to antineoplastic chemotherapy 2024 Prostate cancer metastatic to bone 09/28/2021 Encounters Date Type Department Care Team Description 08/26/2024 External Device Data STL ABSTRACTION Provider, Abstract 08/25/2024 Orders Only [facility] Oncology and Hematology [facility] [address] [place] [address] Trent Nicholas MD Prostate cancer metastatic to bone ([facility]/HCC) 08/19/2024 External Device Data STL ABSTRACTION Provider, Abstract 08/13/2024 External Device Data STL ABSTRACTION Provider, Abstract 08/13/2024 External Device Data STL ABSTRACTION Provider, Abstract 08/11/2024 Orders Only [facility] Oncology and Hematology [facility] [address] [place] [address] Trent Nicholas MD Prostate cancer metastatic to bone ([facility]) 08/05/2024 External Device Data STL ABSTRACTION Provider, Abstract 07/31/2024 10:25 AM HOSEMAN Anesthesia Event [facility] Operating Room [address] [place] [address] Kris Maddox MD Tevis, EDEL Pizarro-Shameka 07/31/2024 9:48 AM HOSEMAN - 07/31/2024 11:48 AM HOSEMAN Surgery [facility] Operating Room [address] [place] [address] Jimmy Ochoa Jr., MD HERNIA INGUINAL REPAIR 07/30/2024 12:31 PM HOSEMAN - 08/01/2024 12:39 PM HOSEMAN Hospital Encounter [facility] Medical Surgical [address] [place] [address] Vincenzo Richey MD Hilton, MD Lavonne Tucker, Skip Polanco, DO Arguello, DO Alec Leyva, Alex Billingsley MD Right inguinal hernia Discharge Disposition: Home or Self Care 07/30/2024 Travel 07/28/2024 Orders Only [facility] Oncology and Hematology - [place] [address] Trent Nicholas MD Prostate cancer metastatic to bone (CMS/HCC) 07/14/2024 Orders Only [facility] Oncology and Hematology - [place] [address] Trent Nicholas MD Prostate cancer metastatic to bone (CMS/HCC) 06/30/2024 Orders Only [facility] Oncology and Hematology - [place] [address] [place] [id number] Trent Nicholas MD Prostate cancer metastatic to bone (CMS/HCC) 06/16/2024 Orders Only [facility] Oncology and Hematology - [place] [address] [place] [id number] Trent Nicholas MD Prostate cancer metastatic to bone (CMS/HCC) 06/02/2024 Orders Only [facility] Oncology and Hematology - [place] [address] Trent Nicholas MD Prostate cancer metastatic to bone (CMS/HCC) from Last 3 Months Social History Tobacco Use Types Packs/Day Years Used Date Smoking Tobacco: Former Cigarettes 0.3 60 1 964 - 07/23/2023 Smokeless Tobacco: Never Alcohol Use Standard Drinks/Week Comments Yes 0 (1 standard drink = 0.6 oz pur e alcohol) Feeling Safe Answer Date Recorded Are you in a relationship wi th someone who hurts you emotionally and/or physically? No 07/30/2024 Food Insecurity Answer Date Recorded Social/Environmental Concerns No concerns Transportation Needs Answer Date Record ed Social/Environmental Concerns No concerns Housing Stability Answer Date Recorded Social/Environmental Concerns No concerns Utility Needs Answer Date Recorded Social/Environmental Concerns No concerns Sex and Gender Information Value Date Recorded Sex Assigned at Not on file Legal Sex Male 3:17 AM HOSEMAN Gender Identity Not on file Sexual Orientation Not on file Last Filed Vital Signs Vital Sign Reading Time Taken Comments Blood Pressure 146/68 08/01/2024 9:24 AM HOSEMAN Pulse 92 08/01/2024 9:24 AM HOSEMAN Temperature 36.6 C (97.8 F) 08/01/2024 9:24 AM HOSEMAN Respiratory Rate 18 08/01/2024 9:24 AM HOSEMAN Oxygen Saturation 92% 08/01/2024 9:24 AM HOSEMAN Inhaled Oxygen Concentration - - Weight 77.1 kg (170 lb) 07/30/2024 8:28 PM HOSEMAN Height 170.2 cm (5' 7 ) 07/30/2024 8:28 PM HOSEMAN Body Mass Index 26.63 07/30/2024 8:28 PM HOSEMAN Plan of Treatment Health Maintenance Due Date Last Done Comments DIABETES ANNUAL FOOT EXAM 1963 DIABETES ANNUAL RETINAL EXAM 1963 DIABETES MICROALBUMIN ANNUAL SCREEN 1963 LDL CHOLESTEROL ANNUAL 1963 DTAP/TDAP/TD VACCINES (1 - Tdap) 1964 PNEUMOCOCCAL VACCINE 65+ YEA RS (1 of 2 - PCV) 1964 ZOSTER VACCINE (1 of 2) 1964 RSV VACCINE (60+ or ) (1 - 1-dose 75+ series) 2020 INFLUENZA VACCINE (#1) 2024 0, 07/03/2019, 07/30/2013 DIABETES HBA1C Q 6 MONTHS 01/27/20252024, 11/02/2020, 11/05/2019, Additional history exists Medical Devices Implanted Type Area Extension Clerk Device Identifier Shelf Expiration Date Model / Serial / Lot Mesh Plug Perfix Light Lrg [id number] - [id number] Implanted:Qty : 1 on 07/31/2024 by Jimmy Ochoa Jr., MD at [facility] Mesh Right: Inguinal BARD DAVOL [id number] 06/19/2025 [id number] / / [id number] Procedures Procedure Name Priority Date/Time Associated Diagnosis Comments POC GLUCOSE Routine 08/01/2024 9:10 AM HOSEMAN PT EVAL AND TREAT Pending Discharge 08/01/2024 6:26 AM HOSEMAN OT EVAL AND TREAT Pending Discharge 08/01/2024 6:26 AM HOSEMAN POC GLUCOSE Routine 07/31/2024 8:48 PM HOSEMAN POC GLUCOSE Routine 07/31/2024 5:51 PM HOSEMAN POC GLUCOSE Routine 07/31/2024 1:57 PM HOSEMAN POC GLUCOSE Routine 07/31/2024 1:01 PM HOSEMAN PATHOLOGY Pathology 07/31/2024 12:01 PM HOSEMAN [place] ANES INSERT ENDOTRACHEAL AIRWAY Routine 07/31/2024 10:36 AM HOSEMAN HERNIA INGUINAL REPAIR 07/31/2024 9:48 AM HOSEMAN POC GLUCOSE Routine 07/31/2024 8:28 AM HOSEMAN BASIC METABOLIC PANEL Routine 07/31/2024 1:45 AM HOSEMAN CBC WITH DIFFERENTIAL Routine 07/31/2024 1:45 AM HOSEMAN POC GLUCOSE Routine 07/31/2024 12:07 AM HOSEMAN EKG 12-LEAD Routine 07/30/2024 9:[address] ABDOMEN PELVIS W CONTRAST Stat 07/30/2024 2:02 PM HOSEMAN POC CREATININE Stat 07/30/2024 1:01 PM HOSEMAN HEMOGLOBIN A1C Routine 07/30/2024 1:01 PM HOSEMAN COMPREHENSIVE METABOLIC PANEL Stat 07/30/2024 1:01 PM HOSEMAN CBC WITH DIFFERENTIAL Stat 07/30/2024 1:01 PM HOSEMAN from Last 3 Months Results * (ABNORMAL) POC GLUCOSE (08/01/2024 9:10 AM HOSEMAN) Only the most recent of7 resultswithin the time period is included. GLUCOSE POC 102(H) 74 - 99 mg/dL 08/01/2024 9:10 AM HOSEMAN [facility] SPECIMEN SOURCE, GLUCOSE POC Whole Blood 08/01/2024 9:10 AM HOSEMAN [facility] Blood, whole 08/01/2024 9:10 AM HOSEMAN 08/01/2024 6:02 PM HOSEMAN us Alex Michael MD POINT OF CARE TESTING Carina gardner Result [facility]# [id number] 5 [facility] [address] [address] * PATHOLOGY (07/31/2024 12:01 PM HOSEMAN) CASE REPORT Surgical Pathology Report Case: [id number] Authorizing Provider: Jimmy Ochoa Jr., MD Collected: 07/31/2024 12:01 PM Ordering Location: [facility] Received: 07/31/2024 01:31 PM Operating Room Pathologist: Nicolás Babcock MD Specimen: Hernia sac, RIGHT INGUINAL HERNIA SAC 11:03 AM HOSEMAN [facility] FINAL DIAGNOSIS Soft tissue, right inguinal hernia sac , excision: -Fibroadipose tissue with focal mesothelial lining, consistent with hernia sac. -Negative for malignancy. 5 11:03 AM [facility] S DESCRIPTION Received in one container labeled Jarrell Rees Enio and right inguinal hernia sac is a 4.6 x 1.5 x 1.2 cm piece of membranous pink-forde tissue. The tissue is serially sectioned to reveal pink-forde to yellow fatty cut surfaces. Distinct lesions are not identified. Bicycle I Assembler sections are submitted in cassette A1. [facility] 5 11:03 AM [facility] MICROSCOPIC DESCRIPTION The slides are labeled [id number] and Jarrell Steen. Microscopic examination substantiates the above diagnosis. 11:03 AM [facility] OPERATIVE PROCEDURE 1: HERNIA INGUINAL REPAIR 5 11:03 AM [facility] COMMENT Special stain, immunohistochemical, and/or in situ hybridization results are interpreted with controls that demonstrate appropriate staining reactions. Note on use of immunohistochemistry reagents and in situ hybridization probes: These tests were developed and their performance characteristics determined by [facility], Department of Laboratory Medicine. It has not been cleared or approved by the U.S. Food and Drug Administration. The FDA has determined that such clearance or approval is not necessary. The test is used for clinical purposes. It should not be regarded as investigational or for research. This laboratory is certified to perform high complexity testing. Frozen section/operating room consultation, gross examination and dissection, and case sign out may have been performed in part or completely in the following laboratories: [facility], CLIA #[id number] [address] [place] [address] [facility], [place] #[id number] [address] [place] [address] [facility] [place], [place] #[id number] [address] [place] [address] This report was created with the [employer] voice-activated dictation system. Inherent to this system is the possibility of syntax, grammar, punctuation and other errors that could impact the interpretation of the report. If there are interpretative questions about aspects of this report, please contact the performing pathologist. 11:03 AM HOSEMAN [facility] Tissue (Hernia sac) Collection / Unknown 07/31/2024 12:01 PM HOSEMAN 07/31/2024 1:31 PM HOSEMAN Jimmy Ochoa Jr., MD PATHOLOGY/CYTOLOGY ORDERABLES Final Result [facility]# [id number] [address] [place] [address] * [place] ANES INSERT ENDOTRACHEAL AIRWAY (07/31/2024 10:36 AM HOSEMAN) Narrative Xuan Solano AA-C - 07/31/2024 10:36 AM HOSEMAN Xuan Solano AA-C 07/31/2024 10:55 AM Airway Date/Time: 07/31/2024 10:36 AM Location: OR Plan: routine intubation Patient Identity Confirmed by: Verbally with patient and armband Airway: not difficult Staffing Performed: SENIOR INTEGRATION ARCHITECT/CAA Authorized by: Kris Maddox MD Performed by: Xuan Solano AA-C Indications and Patient Condition: Indications for Airway Management: Anesthesia Sedation Level: general anesthesia Preoxygenated: yes Patient Position: Sniffing Mask Difficulty Assessment: 1 - vent by mask Plan to extubate at end of case: Yes Final Airway Details: Final Airway Type: Endotracheal airway ETT Cuffed: Yes Technique Used for Successful ETT Placement: Direct laryngoscopy Devices/Methods Used in Placement: Intubating stylet and cricoid pressure Blade Type: straight blade Blade Size: 2 ETT Size (mm): 7.0 Measured from: Lips ETT to Lips (cm): 23 Tube secured with: Tape Placement Verified by: auscultation, end tidal CO2 and chest rise Cormack-Lehane Classification: Grade IIa - partial view of glottis Number of Attempts at Approach: 1 Additional Procedure Information: atraumatic and dentition unchanged Kris Maddox MD PROCEDURE/MINOR SURGICAL ORDERAB LES Final Result * (ABNORMAL) CBC WITH DIFFERENTIAL (07/31/2024 1:45 AM HOSEMAN) Only the most recent of2 resultswithin the time period is included. WBC 5.3 4.0 - 9.8 K/uL 07/31/2024 2:35 AM HOSEMAN [facility] NRBCS 1 % 07/31/2024 2:35 AM HOSEMAN [facility] RBC 3.01(L) 4.50 - 5.40 M/uL 07/31/2024 2:35 AM HOSEMAN [facility] HEMOGLOBIN 8.6(L) 13.6 - 16.5 g/dL 07/31/2024 2:35 AM HOSEMAN [facility] HEMATOCRIT 26.9(L) 40.0 - 48.0 % 07/31/2024 2:35 AM HOSEMAN [facility] MCV 89.4 82.0 - 99.0 fL 07/31/2024 2:35 AM HOSEMAN [facility] MCH 28.6 27.2 - 32.6 pg 07/31/2024 2:35 AM HOSEMAN [facility] MCHC 32.0 31.5 - 35.5 g/dL 07/31/2024 2:35 AM HOSEMAN [facility] RDW 19.2(H) 11.5 - 14.5 % 07/31/2024 2:35 AM HOSEMAN [facility] RDW-STDEV 60.7(H) 37.1 - 48.7 fL 07/31/2024 2:35 AM HOSEMAN [facility] PLATELETS 429(H) 140 - 350 K/uL 07/31/2024 2:35 AM HOSEMAN [facility] - . [facility] MPV 9.3 9.3 - 12.4 fL 07/31/2024 2:35 AM HOSEMAN [facility] - . [facility] NEUTROPHILS 49 % 07/31/2024 2:35 AM HOSEMAN [facility] . [facility] LYMPHOCYTES 31 % 07/31/2024 2:35 AM HOSEMAN [facility] MONOCYTES 11 % 07/31/2024 2:35 AM [email or web address] EOSINOPHILS 7 % 07/31/2024 2:35 AM [facility] [email or web address] [facility] BASOPHILS 2 % 07/31/2024 2:35 AM [facility] [email or web address] [facility] IMMATURE GRANULOCYTES 1 % 07/31/2024 2:35 AM [facility] LABORATORY [facility] Comment:IG (Immature Granulo cyte) count includes Metamyelocytes, Myelocytes, and Promyelocytes NEUTROPHIL ABSOLUTE 2.57 1.90 - 7.00 K/uL 07/31/2024 2:35 AM [facility] [email or web address] [facility] LYMPHOCYTE ABSOLUTE 1.65 0.70 - 4.50 K/uL 07/31/2024 2:35 AM [facility] [email or web address] [facility] MONOCYTE ABSOLUTE 0.56 0.10 - 1.30 K/uL 07/31/2024 2:35 AM [facility] [email or web address] [facility] EOSINOPHIL ABSOLUTE 0.39 0.00 - 0.70 K/uL 07/31/2024 2:35 AM [facility] [email or web address] [facility] BASOPHILS ABSOLUTE 0.08 0.00 - 0.20 K/uL 07/31/2024 2:35 AM [facility] [email or web address] [facility] IMMATURE GRANULOCYTES ABSOLUTE 0.04(H) 0.00 - 0.03 K/uL 07/31/2024 2:35 AM [facility] [email or web address] [facility] Blood Venipuncture / Unknown 07/31/2024 1:45 AM HOSEMAN 07/31/2024 1:55 AM [facility] us Sandhya Garcia MD HEMATOLOGY ORDERABLES Final Resu lt [facility] [email or web address] [facility] CLIA# [id number] 5 [facility] [place] [address] * (ABNORMAL) BASIC METABOLIC PANEL (07/31/2024 1:45 AM HOSEMAN) [facility] SODIUM 138 136 - 145 mmol/L 07/31/2024 3:03 AM [facility] [email or web address] [facility] POTASSIUM 3.8 3.5 - 5.0 mmol/L 07/31/2024 3:03 AM [facility] CHLORIDE 104 98 - 107 mmol/L 07/31/2024 3:03 AM [facility] CO2 21(L) 22 - 29 mmol/L 07/31/2024 3:03 AM [facility] CALCIUM 9.2 8.6 - 10.2 mg/dL 07/31/2024 3:03 AM [facility] BUN 17 8 - 23 mg/dL 07/31/2024 3:03 AM [facility] CREATININE 1.01 0.67 - 1.17 mg/dL 07/31/2024 3:03 AM [facility] Comment:The GFR result is no t clinically significant on patients <18 or >70 years of age. GLUCOSE 93 74 - 99 mg/dL 07/31/2024 3:03 AM [facility] GFR >60 mL/min/1.7 3 sq meter 07/31/2024 3:03 AM [facility] Comment:eGFR calculated with 2020 CKD-EPI equation. Vegetarian diet, extremely high or low muscle mass, and may affect results. Cystatin C with Glomerular Filtration Rate is a suitable alternative for these patients. ANION GAP 13 8 - 16 mmol/L 07/31/2024 3:03 AM [facility] Blood Venipuncture / Unknown 07/31/2024 1:45 AM HOSEMAN 07/31/2024 1:55 AM HOSEMAN us Sandhya Garcia MD CHEMISTRY ORDERABLES Final Resul t [facility] CLIA# [id number] [address] [place] [address] * EKG 12-LEAD (07/30/2024 9:52 PM HOSEMAN) 07/30/2024 9:52 PM [facility] Narrative INTERFACE SYSTEM - 07/31/2024 5:46 AM [facility] [address] [place] [address] Test Date: 2024-07-30 Pat Name: JARRELL STEEN Department: 100 Room: [facility] 1 Gender: Male Public Accountant: : 1945 Requested By: VINCENZO Lieberman Order Number: [id number] Reading MD: Franky Delacruz Measurements Intervals [place] Rate: 87 P: 46 IA: 191 QRS: 14 QRSD: 92 T: 0 QT: 380 QTc: 459 Interpretive Statements SINUS RHYTHM T-WAVE ABNORMALITY, CONSIDER ANTERIOR ISCHEMIA Electronically Signed On 07-31-2024 5:46:12 HOSEMAN by Franky Delacruz Procedure Note Franky Delacruz MD - 07/31/2024 [facility] [address] [place] [address] Test Date: 2024-07-30 Pat Name: JARRELL STEEN Department: 100 Room: [facility] 1 Gender: Male Public Accountant: : 1945 Requested By: VINCENZO Lieberman Order Number: [id number] Reading MD: Franky Delacruz Measurements Intervals [place] Rate: 87 P: 46 IA: 191 QRS: 14 QRSD: 92 T: 0 QT: 380 QTc: 459 Interpretive Statements SINUS RHYTHM T-WAVE ABNORMALITY, CONSIDER ANTERIOR ISCHEMIA Electronically Signed On 07-31-2024 5:46:12 HOSEMAN by Franky Delacruz us Sandhya Garcia MD ECG ORDERABLES Final Result Performing Organization Address City/State/[facility] Co de Phone Number INTERFACE SYSTEM Refer to clinic/hospital department * CT ABDOMEN PELVIS W CONTRAST (07/30/2024 2:02 PM HOSEMAN) Anatomical Region Laterality Modality Abdomen Computed Tomogra phy 07/30/2024 1:58 PM HOSEMAN Impressions 07/30/2024 2:19 PM HOSEMAN IMPRESSION: 1. Small right inguinal hernia contains unobstructed loop of bowel, likely distal small bowel. 2. Moderate/severe left hydroureteronephrosis with dilation of the ureter to level of left retroperitoneal lymph node mass. 3. Diffuse sclerotic osseous metastasis. Chronic appearing T10 and T11 compression deformities. The examination was performed with the adjustment of mA according to the patient size and/or the use of Iterative Reconstruction Technique. DICTATION LOCATION: Location 1 [facility] 07/30/2024 2:[address] ABDOMEN AND PELVIS WITH IV CONTRAST WITH REFORMATTED IMAGES DATE: 07/30/2024 2:02 PM HISTORY: Bowel obstruction suspected. Right groin pain for four months. COMPARISON: 12/12/2005 TECHNIQUE: Multislice helical with multiplanar reformats CONTRAST: IOPAMIDOL 61 % INTRAVENOUS SOLUTION (MULTI-DOSE BULK PACK) Given:90 mL FINDINGS: LOWER CHEST: Moderate bilateral pleural effusions with compressive atelectasis. Small pericardial effusion. LIVER: Normal portal and hepatic vein enhancement. No focal liver lesions. GALLBLADDER AND BILIARY: No calcified gallstones. No CT apparent gallbladder wall thickening or surrounding fluid. No biliary ductal dilation. PANCREAS: 8 mm lipoma is present in the uncinate process of the pancreas. There are no findings of acute pancreatitis. There is no pancreatic ductal dilation. SPLEEN: No focal splenic lesions. ADRENAL GLANDS: Symmetric. No adrenal mass. KIDNEYS/URETERS: Normal right kidney and ureter. Severe left hydronephrosis with cortical thinning. The proximal and mid portions of the left ureter are dilated. There is a soft tissue mass measuring 2.7 x 2.5 cm at the midportion of the left ureter. The ureter distal to this is decompressed. There is no ureteral calculus. URINARY BLADDER: Unremarkable low volume urinary bladder REPRODUCTIVE ORGANS: Prostatectomy STOMACH AND BOWEL: There is no bowel obstruction. A loop of nondilated bowel) likely distal small bowel) enters a right inguinal hernia. There is no obstruction or acute inflammatory bowel wall thickening. VESSELS: No aortic aneurysm. No major aortic branch occlusion. LYMPH NODES: The soft tissue mass in the left retroperitoneum resulting in ureteral obstruction is likely enlarged lymph nodes. PERITONEUM/RETROPERITONEUM: No pneumoperitoneum. No substantive free fluid or organized fluid collections. ABDOMINAL WALL: Right inguinal hernia containing unobstructed bowel. Left inguinal hernia contains only fat. BONES: Diffuse sclerotic osseous metastasis. Chronic appearing T10 and T11 compression deformities. ADDITIONAL: None Procedure Note Herbie Carrero III, MD - 07/30/2024 CT ABDOMEN AND PELVIS WITH IV CONTRAST WITH REFORMATTED IMAGES DATE: 07/30/2024 2:02 PM HISTORY: Bowel obstruction suspected. Right groin pain for four months. COMPARISON: 12/12/2005 TECHNIQUE: Multislice helical with multiplanar reformats CONTRAST: IOPAMIDOL 61 % INTRAVENOUS SOLUTION (MULTI-DOSE BULK PACK) Given:90 mL FINDINGS: LOWER CHEST: Moderate bilateral pleural effusions with compressive atelectasis. Small pericardial effusion. LIVER: Normal portal and hepatic vein enhancement. No focal liver lesions. GALLBLADDER AND BILIARY: No calcified gallstones. No CT apparent gallbladder wall thickening or surrounding fluid. No biliary ductal dilation. PANCREAS: 8 mm lipoma is present in the uncinate process of the pancreas. There are no findings of acute pancreatitis. There is no pancreatic ductal dilation. SPLEEN: No focal splenic lesions. ADRENAL GLANDS: Symmetric. No adrenal mass. KIDNEYS/URETERS: Normal right kidney and ureter. Severe left hydronephrosis with cortical thinning. The proximal and mid portions of the left ureter are dilated. There is a soft tissue mass measuring 2.7 x 2.5 cm at the midportion of the left ureter. The ureter distal to this is decompressed. There is no ureteral calculus. URINARY BLADDER: Unremarkable low volume urinary bladder REPRODUCTIVE ORGANS: Prostatectomy STOMACH AND BOWEL: There is no bowel obstruction. A loop of nondilated bowel) likely distal small bowel) enters a right inguinal hernia. There is no obstruction or acute inflammatory bowel wall thickening. VESSELS: No aortic aneurysm. No major aortic branch occlusion. LYMPH NODES: The soft tissue mass in the left retroperitoneum resulting in ureteral obstruction is likely enlarged lymph nodes. PERITONEUM/RETROPERITONEUM: No pneumoperitoneum. No substantive free fluid or organized fluid collections. ABDOMINAL WALL: Right inguinal hernia containing unobstructed bowel. Left inguinal hernia contains only fat. BONES: Diffuse sclerotic osseous metastasis. Chronic appearing T10 and T11 compression deformities. ADDITIONAL: None IMPRESSION: 1. Small right inguinal hernia contains unobstructed loop of bowel, likely distal small bowel. 2. Moderate/severe left hydroureteronephrosis with dilation of the ureter to level of left retroperitoneal lymph node mass. 3. Diffuse sclerotic osseous metastasis. Chronic appearing T10 and T11 compression deformities. The examination was performed with the adjustment of mA according to the patient size and/or the use of Iterative Reconstruction Technique. DICTATION LOCATION: Location - [facility] us Vincenzo Richey MD CT ORDERABLES Final Result * POC CREATININE (07/30/2024 1:01 PM [facility]) CREATININE POC 1.10 0.70 - 1.20 mg/dL 07/30/2024 1:01 PM [facility] [email or web address] [facility] Comment:The GFR result is no t clinically significant on patients <18 or >70 years of age. GFR POC >60 mL/min/1.7 3 sq meter 07/30/2024 1:01 PM [facility] [email or web address] [facility] Comment:eGFR calculated with 2020 CKD-EPI equation. Vegetarian diet, extremely high or low muscle mass, and may affect results. Cystatin C with Glomerular Filtration Rate is a suitable alternative for these patients. Blood, whole 07/30/2024 1:01 PM [facility] 07/30/2024 1:04 PM [facility] Vincenzo Richey MD POINT OF CARE TESTING Final Result Performing Organization Address City/[facility]/ZIP Co de Phone Number [facility] [email or web address] [facility]# [id number] [address] [facility] [place] [address] * (ABNORMAL) HEMOGLOBIN A1C (07/30/2024 1:01 PM [facility]) HEMOGLOBIN A1C 6.2(H) <5.7 % 07/30/2024 8:15 PM [facility] LABORATORY [facility] EST. AVG GLUCOSE, A1C 131 mg/dL 07/30/2024 8:15 PM [facility] [email or web address] [facility] Blood Venipuncture / Unknown 07/30/2024 1:01 PM [facility] 07/30/2024 1:23 PM [facility] Narrative [facility] [email or web address] [facility] - 07/30/2024 8:15 PM [facility] HGB A1C INTERPRETATION NORMAL: <5.7% PRE-DIABETES: 5.7 - 6.4% DIABETES: 6.5% OR GREATER Sandhya Garcia MD CHEMISTRY ORDERABLES Final Resul t [facility] [email or web address] [facility] CLIA# [id number] [address] [place] [address] * (ABNORMAL) COMPREHENSIVE METABOLIC PANEL (07/30/2024 1:01 PM [facility]) SODIUM 138 136 - 145 mmol/L 07/30/2024 2:30 PM [facility] [employer] LABORATORY SERVICES - [facility] POTASSIUM 3.7 3.5 - 5.0 mmol/L 07/30/2024 2:30 PM [facility] [employer] LABORATORY [facility] - . [facility] CHLORIDE 104 98 - 107 mmol/L 07/30/2024 2:30 PM [facility] [employer] [facility] - . [place] 22 22 - 29 mmol/L 07/30/2024 2:30 PM [facility] [email or web address] [facility] - . [facility] CALCIUM 9.3 8.6 - 10.2 mg/dL 07/30/2024 2:30 PM [facility] [email or web address] [facility]. [facility] BUN 19 8 - 23 mg/dL 07/30/2024 2:30 PM [facility] CREATININE 1.06 0.67 - 1.17 mg/dL 07/30/2024 2:30 PM [facility] [employer] LABORATORY [facility] Comment:The GFR result is no t clinically significant on patients <18 or >70 years of age. GLUCOSE 183(H) 74 - 99 mg/dL 07/30/2024 2:30 PM [facility] LABORATORY [facility] TOTAL PROTEIN 6.2(L) 6.7 - 8.6 g/dL 07/30/2024 2:30 PM [facility] [email or web address] [facility]. [facility] ALBUMIN 3.4(L) 3.5 - 5.2 g/dL 07/30/2024 2:30 PM [facility] [employer] LABORATORY [facility]. [facility] BILIRUBIN TOTAL 0.3 0.2 - 1.1 mg/dL 07/30/2024 2:30 PM [facility] [employer] [email or web address] [facility] ALKALINE PHOSPHATASE 319(H) 40 - 129 U/L 07/30/2024 2:30 PM [facility]. [facility] AST 24 <41 U/L 07/30/2024 2:30 PM [facility]. [facility] ALT 16 <42 U/L 07/30/2024 2:30 PM [facility] [email or web address] [facility] GFR >60 mL/min/1.7 3 sq meter 07/30/2024 2:30 PM [facility] Comment:eGFR calculated with 2020 CKD-EPI equation. Vegetarian diet, extremely high or low muscle mass, and may affect results. Cystatin C with Glomerular Filtration Rate is a suitable alternative for these patients. ANION GAP 12 8 - 16 mmol/L 07/30/2024 2:30 PM [facility] Blood Venipuncture / Unknown 07/30/2024 1:01 PM [facility] 07/30/2024 1:23 PM [facility] Narrative [facility] - 07/30/2024 2:30 PM [facility] Samples containing indocyanine green cause interferences on Total and/or Direct Bilirubin and must not be measured. Vincenzo Richey MD CHEMISTRY ORDERABLES Final R esult [facility]# [id number] [address] [facility] [place] [id number] from Last 3 Months Insurance MEDICARE PART A AND B MEDICARE PART A AND B [employer] Medicare Part D Advance Directives For more information, please contact: [phone] * Full Code (Latest Code Status on File) Date Activated Date Inactivated Comments 07/30/2024 7:03 PM 08/01/2024 2:50 PM Care Teams Recreational Facilities Motel Manager Relationship Specialty Start Date End Date Saw Ga MD [facility] [place] [address] PCP - General Family Practice 02/17/19
[2024-08-31 18:25] VITALS: BP 153/76; PULSE 106; RESP 24; TEMP 36.7; O2SAT 96
--- NOTE | 2024-08-31 18:26 | ECG_ITS ---
Test Date: 2024-08-31 18:33:25 Measurements Intervals [place] Rate: 99 P: 80 LA: 192 QRS: 20 QRSD: 97 T: 7 QT: 363 QTc: 467 Interpretive Statements SINUS RHYTHM MINIMAL Q WAVES- INFERIOR LEADS NONSPECIFIC ST & T-WAVE ABNORMALITY- DIFFUSE LEADS BASELINE ARTIFACT- I, II, III, AVR, AVL, AVF, V1-V6 BORDERLINE ECG Compared to ECG 03/27/2024 11:11:58 NO SIGNIFICANT CHANGE Electronically Signed On 08-31-2024 19:42:35 ELECTRICAL MANUFACTURING ENGINEER by Jake Persaud D.O.
[2024-08-31 18:27] VITALS: BP 153/76; PULSE 106; RESP 18; TEMP 36.7; O2SAT 96
--- OUTSIDE RECORDS SUMMARY | 2024-08-31 18:58 | XMS_ITS | Encounter Summary ---
Author Organization [facility] Address [address] [place] [address] Care Team Providers Care Trailhead Construction Worker Name Role Phone Saw Ga MD Primary Care Provider Encounter Details Date Type Department Care Team (Late st Contact Info) Description 12/29/2005 Outpatient Historical [facility] Trauma and General Surgery [address] [address] Delgado Parra MD [address] [place] [address] Social History Tobacco Use Types Packs/Day Years Used Date Smoking Tobacco: Never Assessed Sex and Gender Information Value Date Recorded Sex Assigned at Not on file Legal Sex Male 3:17 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 diff 07/30/2024 07/30/2024 07/31/2024 7:00 PM OFFSET PLATE PREPARATION SUPERVISOR documented as of this encounter Care Teams Trailhead Construction Worker Relationship Specialty Start Date End Date Saw Ga MD [address] [place] [address] PCP - General Family Practice 02/17/19 documented as of this encounter
--- OUTSIDE RECORDS SUMMARY | 2024-08-31 18:58 | XMS_ITS | Patient Health Summary ---
Author Organization [facility] Address [address] [place] [address] Care Team Providers Care Emergency Management Director Name Role Phone Unavailable Primary Care Provider Unavailabl e Note from [facility],non-owned Affiliates and Associated Physician Practices is amultiple site organization consisting of ambulatory clinics and hospital sitesin [place], [place], [place] and [place]. This disclosure is being madepursuant to the Care Everywhere program and may not contain all information available regarding this patient. Last updated 18.[facility] Social History Tobacco Use Types Packs/Day Years [...] synovial hyperplasia Dictated by Davie Jensen M.D. C++ Professor ELVIN YEE Electronically Signed By DAVIE JENSEN MISCELLANEOUS SAMPLES / Unknown 10/04/2006 8:15 AM CDT 10/04/2006 10:20 AM CDT Historical Provider MD LAB - PATHOLOGY/C YTOLOGY ORDERABLES
--- OUTSIDE RECORDS SUMMARY | 2024-08-31 18:58 | XMS_ITS | Encounter Summary ---
Author Organization [facility] Address [address] [place] [address] Care Team Providers Care Mixer Tender Name Role Phone Saw Ga MD Primary Care Provider Encounter Details Date Type Department Care Team (Late st Contact Info) Description 12/12/2005 Outpatient Historical [facility] Trauma and General Surgery [address] [phone] [place] [address] [place] [address] Social History Tobacco Use Types Packs/Day Years Used Date Smoking Tobacco: Never Assessed Sex and Gender Information Value Date Recorded Sex Assigned at Not on file Legal Sex Male 3:17 AM VICE PRESIDENT OF TALENT MANAGEMENT Gender Identity Not on file Sexual Orientation Not on file documented as of this encounter Plan of Treatment Not on file documented as of this encounter Visit Diagnoses Not on filedocumented in this encounter Additional Health Concerns Infection Onset Date Last Indicated Resolved Time R/O C. diff 07/30/2024 07/30/2024 07/31/2024 7:00 PM VICE PRESIDENT OF TALENT MANAGEMENT documented as of this encounter Care Teams Mixer Tender Relationship Specialty Start Date End Date Saw Ga MD [address] [place] [phone] PCP - General Family Practice 02/17/19 documented as of this encounter
--- OUTSIDE RECORDS SUMMARY | 2024-08-31 18:58 | XMS_ITS | Encounter Summary ---
Author Organization [facility] Address [address] [place] [address] Care Team Providers Care Database Administration Associate Name Role Phone Saw Ga MD Primary Care Provider [phone] Encounter Details Date Type Department Care Team (Late st Contact Info) Description 01/26/2006 Outpatient Historical [facility] Trauma and General Surgery [address] [facility] [place] [address] Jim Gonzalez MD [address] [place] [address] Social History Tobacco Use Types Packs/Day Years Used Date Smoking Tobacco: Never Assessed Sex and Gender Information Value Date Recorded Sex Assigned at Not on file Legal Sex Male 3:17 AM SHEEP BONER Gender Identity Not on file Sexual Orientation Not on file documented as of this encounter Plan of Treatment Not on file documented as of this encounter Visit Diagnoses Not on filedocumented in this encounter Additional Health Concerns Infection Onset Date Last Indicated Resolved Time R/O C. diff 07/30/2024 07/30/2024 07/31/2024 7:00 PM SHEEP BONER documented as of this encounter Care Teams Database Administration Associate Relationship Specialty Start Date End Date Saw Ga MD [address] [place] [phone] PCP - General Family Practice 02/17/19 documented as of this encounter
--- OUTSIDE RECORDS SUMMARY | 2024-08-31 18:58 | XMS_ITS | Encounter Summary ---
Author Organization [facility] Address [address] [place] [address] Phone Care Team Providers Care Medical Sociologist Name Role Phone Saw Ga MD Primary Care Provider [phone] Devon Carlin MD Unavailable [phone] Encounter Details Date Type Department Care Team [...] on file Legal Sex Male 4:28 AM EXHAUST EMISSIONS INSPECTOR Gender Identity Not on file Sexual Orientation [...] on filedocumented in this encounter Care Teams Medical Sociologist Relationship Specialty Start Date End Date Saw Ga MD [address] [address] PCP - General 10/20/16 Devon Carlin MD [address] [place] [address] MEDICAL ONCOLOGY, [address] [place] [address] Medical Oncology 12/21/23 documented as of this encounter
--- OUTSIDE RECORDS SUMMARY | 2024-08-31 18:58 | XMS_ITS | Encounter Summary ---
Author Organization [employer] Address 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 diff 07/30/2024 07/30/2024 07/31/2024 7:00 PM LANDSCAPE ARCHITECTURE TEACHER documented as of this encounter Care Teams Game Trapper Relationship Specialty Start Date End Date Saw Ga MD [address] [place] [phone] PCP - General Family Practice 02/17/19 documented as of this encounter
--- OUTSIDE RECORDS SUMMARY | 2024-08-31 18:58 | XMS_ITS | Referral Summary ---
Author Organization [facility] Address [address] [place] [address] Care Team Providers Care Hot Plate Plywood Press Offbearer Name Role Phone Unavailable Primary Care Provider Unavailabl e Source Comments [facility],non-owned Affiliates and Associated Physician Practices is amultiple site organization consisting of ambulatory clinics and hospital sitesin [place], [place], [place] and [place]. This disclosure is being madepursuant to the Care Everywhere program and may not contain all information available regarding this patient. Last updated 18.[facility] [employer] Social History Tobacco Use Types Packs/Day Years Used Date Smoking Tobacco: Never Assessed Sex and Gender Information Value Date Recorded Sex Assigned at Not on file Gender Identity Not on file Sexual Orientation Not on file Plan of Treatment Not on file
--- OUTSIDE RECORDS SUMMARY | 2024-08-31 18:58 | XMS_ITS | Encounter Summary ---
Author Organization [employer] Address [address] [place] [address] Care Team Providers Care Consumer Marketing Analyst Name Role Phone Saw Ga MD Primary Care Provider [phone] Encounter Details Date Type Department Care Team (Late st Contact Info) Description 02/27/2006 Outpatient Historical [facility] Sony Mueller, DO [address] [place] [address] Er, Authorized P NO ADDRESS ON FILE [...] on file Legal Sex Male 3:17 AM ENTRY LEVEL SOFTWARE ENGINEER Gender Identity Not on file Sexual [...] C. diff 07/30/2024 07/30/2024 07/31/2024 7:00 PM ENTRY LEVEL SOFTWARE ENGINEER documented as of this encounter Care Teams Consumer Marketing Analyst Relationship Specialty Start Date End Date Saw Ga MD [address] [place] [phone] PCP - General Family Practice 02/17/19 documented as of this encounter
--- OUTSIDE RECORDS SUMMARY | 2024-08-31 18:58 | XMS_ITS | Encounter Summary ---
Author Organization [employer] Address [address] [place] [address] Care Team Providers Care Gang Sawyer Name Role Phone Saw Ga MD Primary Care Provider [phone] Encounter Details Date Type Department Care Team (Latest Contact Info) Description 08/17/2006 Outpatient Historical [facility] CARD SIDEROGRAPHIST Ori Alonso MD [address] [place] [address] Other Chest Pain (Primary Dx) Social History Tobacco Use Types Packs/Day Years Used Date Smoking Tobacco: Never Assessed Sex and Gender Information Value Date Recorded Sex Assigned at Not on file Legal Sex Male 3:17 AM SOLARIS ADMINISTRATOR Gender Identity Not on file Sexual Orientation Not on file documented as of this encounter Plan of Treatment Not on file documented as of this encounter Visit Diagnoses Diagnosis Other chest pain- Primary documented in this encounter Additional Health Concerns Infection Onset Date Last Indicated Resolved Time R/O C. diff 07/30/2024 07/30/2024 07/31/2024 7:00 PM SOLARIS ADMINISTRATOR documented as of this encounter Care Teams Gang Sawyer Relationship Specialty Start Date End Date Saw Ga MD [address] [place] [address] PCP - General Family Practice 02/17/19 documented as of this encounter
--- OUTSIDE RECORDS SUMMARY | 2024-08-31 18:58 | XMS_ITS | Encounter Summary ---
Author Organization [facility] Address [address] [place] [address] Care Team Providers Care System Dispatcher Name Role Phone Saw Ga MD Primary Care Provider Encounter Details Date Type Department Care Team (Late st Contact Info) Description 12/13/2005 Outpatient Historical [facility] Trauma and General Surgery [address] [address] Delgado Parra MD [address] [place] [address] Social History Tobacco Use Types Packs/Day Years Used Date Smoking Tobacco: Never Assessed Sex and Gender Information Value Date Recorded Sex Assigned at Not on file Legal Sex Male 3:17 AM HOME HEALTH CNA Gender Identity Not on file Sexual Orientation Not on file documented as of this encounter Plan of Treatment Not on file documented as of this encounter Visit Diagnoses Not on filedocumented in this encounter Additional Health Concerns Infection Onset Date Last Indicated Resolved Time R/O C. diff 07/30/2024 07/30/2024 07/31/2024 7:00 PM HOME HEALTH CNA documented as of this encounter Care Teams System Dispatcher Relationship Specialty Start Date End Date Saw Ga MD [address] [place] [address] PCP - General Family Practice 02/17/19 documented as of this encounter
--- OUTSIDE RECORDS SUMMARY | 2024-08-31 18:58 | XMS_ITS | Encounter Summary ---
Author Organization [employer] Address [address] [place] [address] Care Team Providers Care Motorcycle Fabricator Name Role Phone Saw Ga MD Primary Care Provider [phone] Encounter Details Date Type Department Care Team (Late st Contact Info) Description 12/12/2005 Outpatient Historical [facility] Support Serv. ([facility]) [address] [place] [address] Collin Dennis MD NO ADDRESS ON FILE Social History Tobacco Use Types Packs/Day Years Used Date Smoking Tobacco: Never Assessed Sex and Gender Information Value Date Recorded Sex Assigned at Not on file Legal Sex Male 3:17 AM WORK CHECKER Gender Identity Not on file Sexual Orientation Not on file documented as of this encounter Plan of Treatment Not on file documented as of this encounter Visit Diagnoses Not on filedocumented in this encounter Additional Health Concerns Infection Onset Date Last Indicated Resolved Time R/O C. diff 07/30/2024 07/30/2024 07/31/2024 7:00 PM WORK CHECKER documented as of this encounter Care Teams Motorcycle Fabricator Relationship Specialty Start Date End Date Saw Ga MD [address] [place] [phone] PCP - General Family Practice 02/17/19 documented as of this encounter
--- OUTSIDE RECORDS SUMMARY | 2024-08-31 18:58 | XMS_ITS | Clinical Summary ---
Author Organization [facility] Administrative Offices Address [address] [place] [address] Care Team Providers Care Shopper Insights Manager Name Role Phone Saw Ga MD Primary Care Provider [phone] Allergies No known active allergies Medications metFORMIN [...] STL ABSTRACTION Provider, Abstract 08/25/2024 Orders Only [facility] Oncology and Hematology [facility] [address] [place] [address] Trent Nicholas MD Prostate cancer metastatic to bone ([facility]/HCC) 08/19/2024 External Device Data STL ABSTRACTION Provider, Abstract 08/13/2024 External Device Data STL ABSTRACTION Provider, Abstract 08/13/2024 External Device Data STL ABSTRACTION Provider, Abstract 08/11/2024 Orders Only [facility] Oncology and Hematology [facility] [address] [place] [address] Trent Nicholas MD Prostate cancer metastatic to bone ([facility]) 08/05/2024 External Device Data STL ABSTRACTION Provider, Abstract 07/31/2024 10:25 AM SYSTEM ARCHITECT Anesthesia Event [facility] Operating Room [address] [place] [address] Kris Maddox MD Tevis, EDEL Pizarro-Shameka 07/31/2024 9:48 AM SYSTEM ARCHITECT - 07/31/2024 11:48 AM SYSTEM ARCHITECT Surgery [facility] Operating Room [address] [place] [address] Jimmy Ochoa Jr., MD HERNIA INGUINAL REPAIR 07/30/2024 12:31 PM SYSTEM ARCHITECT - 08/01/2024 12:39 PM SYSTEM ARCHITECT Hospital Encounter [facility] Medical Surgical [address] [place] [address] Vincenzo Richey MD Hilton, MD Lavonne Tucker, Skip Polanco, DO Arguello, DO Alec Leyva, Alex Billingsley MD Right inguinal hernia Discharge Disposition: Home or Self Care 07/30/2024 Travel 07/28/2024 Orders Only [facility] Oncology and Hematology - [place] [address] Trent Nicholas MD Prostate cancer metastatic to bone (CMS/HCC) 07/14/2024 Orders Only [facility] Oncology and Hematology - [place] [address] Trent Nicholas MD Prostate cancer metastatic to bone (CMS/HCC) 06/30/2024 Orders Only [facility] Oncology and Hematology - [place] [address] [place] [phone] Trent Nicholas MD Prostate cancer metastatic to bone (CMS/HCC) 06/16/2024 Orders Only [facility] Oncology and Hematology - [place] [address] [place] [phone] Trent Nicholas MD Prostate cancer metastatic to bone (CMS/HCC) 06/02/2024 Orders Only [facility] Oncology and Hematology - [place] [address] Trent Nicholas MD Prostate cancer metastatic [...] on file Legal Sex Male 3:17 AM SYSTEM ARCHITECT Gender Identity Not on file Sexual Orientation Not on file Last Filed Vital Signs Vital Sign Reading Time Taken Comments Blood Pressure 146/68 08/01/2024 9:24 AM SYSTEM ARCHITECT Pulse 92 08/01/2024 9:24 AM SYSTEM ARCHITECT Temperature 36.6 C (97.8 F) 08/01/2024 9:24 AM SYSTEM ARCHITECT Respiratory Rate 18 08/01/2024 9:24 AM SYSTEM ARCHITECT Oxygen Saturation 92% 08/01/2024 9:24 AM SYSTEM ARCHITECT Inhaled Oxygen Concentration - - Weight 77.1 kg (170 lb) 07/30/2024 8:28 PM SYSTEM ARCHITECT Height 170.2 cm (5' 7 ) 07/30/2024 8:28 PM SYSTEM ARCHITECT Body Mass Index 26.63 07/30/2024 8:28 PM SYSTEM ARCHITECT Plan of Treatment Health Maintenance Due Date [...] history exists Medical Devices Implanted Type Area Engineering Mathematician Device Identifier Shelf Expiration Date Model / Serial / Lot Mesh Plug Perfix Light [id number] [id number] - [id number] Implanted:Qty : 1 on 07/31/2024 by Jimmy Ochoa Jr., MD at [facility] Mesh Right: Inguinal BARD DAVOL [id number] 06/19/2025 [id number] / / [id number] Procedures Procedure Name Priority Date/Time Associated Diagnosis Comments POC GLUCOSE Routine 08/01/2024 9:10 AM SYSTEM ARCHITECT PT EVAL AND TREAT Pending Discharge 08/01/2024 6:26 AM SYSTEM ARCHITECT OT EVAL AND TREAT Pending Discharge 08/01/2024 6:26 AM SYSTEM ARCHITECT POC GLUCOSE Routine 07/31/2024 8:48 PM SYSTEM ARCHITECT POC GLUCOSE Routine 07/31/2024 5:51 PM SYSTEM ARCHITECT POC GLUCOSE Routine 07/31/2024 1:57 PM SYSTEM ARCHITECT POC GLUCOSE Routine 07/31/2024 1:01 PM SYSTEM ARCHITECT PATHOLOGY Pathology 07/31/2024 12:01 PM SYSTEM ARCHITECT W[place] ANES INSERT ENDOTRACHEAL AIRWAY Routine 07/31/2024 10:36 AM SYSTEM ARCHITECT HERNIA INGUINAL REPAIR 07/31/2024 9:48 AM SYSTEM ARCHITECT POC GLUCOSE Routine 07/31/2024 8:28 AM SYSTEM ARCHITECT BASIC METABOLIC PANEL Routine 07/31/2024 1:45 AM SYSTEM ARCHITECT CBC WITH DIFFERENTIAL Routine 07/31/2024 1:45 AM SYSTEM ARCHITECT POC GLUCOSE Routine 07/31/2024 12:07 AM SYSTEM ARCHITECT EKG 12-LEAD Routine 07/30/2024 9:[address] ABDOMEN PELVIS W CONTRAST Stat 07/30/2024 2:02 PM SYSTEM ARCHITECT POC CREATININE Stat 07/30/2024 1:01 PM SYSTEM ARCHITECT HEMOGLOBIN A1C Routine 07/30/2024 1:01 PM SYSTEM ARCHITECT COMPREHENSIVE METABOLIC PANEL Stat 07/30/2024 1:01 PM SYSTEM ARCHITECT CBC WITH DIFFERENTIAL Stat 07/30/2024 1:01 PM SYSTEM ARCHITECT from Last 3 Months Results * (ABNORMAL) POC GLUCOSE (08/01/2024 9:10 AM SYSTEM ARCHITECT) Only the most recent of7 resultswithin the time period is included. GLUCOSE POC 102(H) 74 - 99 mg/dL 08/01/2024 9:10 AM SYSTEM ARCHITECT [facility] SPECIMEN SOURCE, GLUCOSE POC Whole Blood 08/01/2024 9:10 AM SYSTEM ARCHITECT [facility] Blood, whole 08/01/2024 9:10 AM SYSTEM ARCHITECT 08/01/2024 6:02 PM SYSTEM ARCHITECT us Alex Michael MD POINT OF CARE TESTING Carina gardner Result [facility]# [id number] [address] [facility] [place] [address] * PATHOLOGY (07/31/2024 12:01 PM SYSTEM ARCHITECT) CASE REPORT Surgical Pathology Report Case: [id number] Authorizing Provider: Jimmy Ochoa Jr., MD Collected: 07/31/2024 12:01 PM Ordering Location: [facility] Received: 07/31/2024 01:31 PM Operating Room Pathologist: Nicolás Babcock MD Specimen: Hernia sac, RIGHT INGUINAL HERNIA SAC 11:03 AM SYSTEM ARCHITECT [facility] FINAL DIAGNOSIS Soft tissue, right inguinal hernia sac , excision: -Fibroadipose tissue with focal mesothelial lining, consistent with hernia sac. -Negative for malignancy. 5 11:03 AM [facility] S DESCRIPTION Received in one container labeled Jarrell Rees Enio and right inguinal hernia sac is a 4.6 x 1.5 x 1.2 cm piece of membranous pink-forde tissue. The tissue is serially sectioned to reveal pink-forde to yellow fatty cut surfaces. Distinct lesions are not identified. Fruit Bar Maker sections are submitted in cassette A1. [facility] 5 11:03 AM [facility] MICROSCOPIC DESCRIPTION The slides are labeled [id number] and Jarrell Steen. Microscopic examination substantiates the above diagnosis. 11:03 AM [facility] OPERATIVE PROCEDURE 1: HERNIA INGUINAL REPAIR 5 11:03 AM [facility] COMMENT Special stain, immunohistochemical, and/or in situ hybridization results are interpreted with controls that demonstrate appropriate staining reactions. Note on use of immunohistochemistry reagents and in situ hybridization probes: These tests were developed and their performance characteristics determined by [facility], Department of Laboratory Medicine. It has not [...] part or completely in the following laboratories: [facility], CLIA #[id number] [address] [place] [address] [facility], [place] #[id number] [address] [place] [address] [facility] [place], [place] #[id number] [address] [place] [address] This report was created with the [employer] voice-activated dictation system. Inherent to this system is the possibility of syntax, grammar, punctuation and other errors that could impact the interpretation of the report. If there are interpretative questions about aspects of this report, please contact the performing pathologist. 11:03 AM SYSTEM ARCHITECT [facility] Tissue (Hernia sac) Collection / Unknown 07/31/2024 12:01 PM SYSTEM ARCHITECT 07/31/2024 1:31 PM SYSTEM ARCHITECT Jimmy Ochoa Jr., MD PATHOLOGY/CYTOLOGY ORDERABLES Final Result [facility]# [id number] [address] [place] [address] * [place] ANES INSERT ENDOTRACHEAL AIRWAY (07/31/2024 10:36 AM SYSTEM ARCHITECT) Narrative Xuan Solano AA-C - 07/31/2024 10:36 AM SYSTEM ARCHITECT Xuan Solano AA-C 07/31/2024 10:55 AM Airway Date/Time: 07/31/2024 10:36 AM Location: OR Plan: routine intubation Patient Identity Confirmed by: Verbally with patient and armband Airway: not difficult Staffing Performed: ROUTE DELIVERY CLERK/CAA Authorized by: Kris Maddox MD Performed by: [...] (ABNORMAL) CBC WITH DIFFERENTIAL (07/31/2024 1:45 AM SYSTEM ARCHITECT) Only the most recent of2 resultswithin the time period is included. WBC 5.3 4.0 - 9.8 K/uL 07/31/2024 2:35 AM SYSTEM ARCHITECT [facility] NRBCS 1 % 07/31/2024 2:35 AM SYSTEM ARCHITECT [facility] RBC 3.01(L) 4.50 - 5.40 M/uL 07/31/2024 2:35 AM SYSTEM ARCHITECT [facility] HEMOGLOBIN 8.6(L) 13.6 - 16.5 g/dL 07/31/2024 2:35 AM SYSTEM ARCHITECT [facility] HEMATOCRIT 26.9(L) 40.0 - 48.0 % 07/31/2024 2:35 AM SYSTEM ARCHITECT [facility] MCV 89.4 82.0 - 99.0 fL 07/31/2024 2:35 AM SYSTEM ARCHITECT [facility] MCH 28.6 27.2 - 32.6 pg 07/31/2024 2:35 AM SYSTEM ARCHITECT [facility] MCHC 32.0 31.5 - 35.5 g/dL 07/31/2024 2:35 AM SYSTEM ARCHITECT [facility] RDW 19.2(H) 11.5 - 14.5 % 07/31/2024 2:35 AM SYSTEM ARCHITECT [facility] RDW-STDEV 60.7(H) 37.1 - 48.7 fL 07/31/2024 2:35 AM SYSTEM ARCHITECT [facility] PLATELETS 429(H) 140 - 350 K/uL 07/31/2024 2:35 AM SYSTEM ARCHITECT [facility] MPV 9.3 9.3 - 12.4 fL 07/31/2024 2:35 AM SYSTEM ARCHITECT [facility] . [facility] NEUTROPHILS 49 % 07/31/2024 2:35 AM SYSTEM ARCHITECT [employer] [facility] LYMPHOCYTES 31 % 07/31/2024 2:35 AM SYSTEM ARCHITECT [employer] [facility] MONOCYTES 11 % 07/31/2024 2:35 AM SYSTEM ARCHITECT [facility] EOSINOPHILS 7 % 07/31/2024 2:35 AM [facility] [employer] [facility] BASOPHILS 2 % 07/31/2024 2:35 AM [facility] [employer] [facility] IMMATURE GRANULOCYTES 1 % 07/31/2024 2:35 AM [facility]ORY [facility] Comment:IG (Immature Granulo cyte) count includes Metamyelocytes, Myelocytes, and Promyelocytes NEUTROPHIL ABSOLUTE 2.57 1.90 - 7.00 K/uL 07/31/2024 2:35 AM [facility] [employer] [facility] LYMPHOCYTE ABSOLUTE 1.65 0.70 - 4.50 K/uL 07/31/2024 2:35 AM [facility] [employer] [facility] MONOCYTE ABSOLUTE 0.56 0.10 - 1.30 K/uL 07/31/2024 2:35 AM [facility] [employer] [facility] EOSINOPHIL ABSOLUTE 0.39 0.00 - 0.70 K/uL 07/31/2024 2:35 AM [facility] [employer] [facility] BASOPHILS ABSOLUTE 0.08 0.00 - 0.20 K/uL 07/31/2024 2:35 AM [facility] [employer] [facility] . [facility] IMMATURE GRANULOCYTES ABSOLUTE 0.04(H) 0.00 - 0.03 K/uL 07/31/2024 2:35 AM [facility] [employer] [facility] Blood Venipuncture / Unknown 07/31/2024 1:45 AM SYSTEM ARCHITECT 07/31/2024 1:55 AM [facility] us Sandhya Garcia MD HEMATOLOGY ORDERABLES Final Resu lt [facility] [employer] [facility] CLIA# [id number] 5 [facility] [place] [address] * (ABNORMAL) BASIC METABOLIC PANEL (07/31/2024 1:45 AM SYSTEM ARCHITECT) [facility] SODIUM 138 136 - 145 mmol/L 07/31/2024 3:03 AM [facility] [employer] [facility] POTASSIUM 3.8 3.5 - 5.0 mmol/L 07/31/2024 3:03 AM [facility] CHLORIDE 104 98 - 107 mmol/L 07/31/2024 3:03 AM [facility] CO2 21(L) 22 - 29 mmol/L 07/31/2024 3:03 AM [facility] CALCIUM 9.2 8.6 - 10.2 mg/dL 07/31/2024 3:03 AM [facility] BUN 17 8 - 23 mg/dL 07/31/2024 3:03 AM [facility] CREATININE 1.01 0.67 - 1.17 mg/dL 07/31/2024 3:03 AM [facility] Comment:The GFR result is no t clinically significant on patients <18 or >70 years of age. GLUCOSE 93 74 - 99 mg/dL 07/31/2024 3:03 AM [facility] GFR >60 mL/min/1.7 3 sq meter 07/31/2024 3:03 AM [facility] Comment:eGFR calculated with 2020 CKD-EPI equation. Vegetarian diet, extremely high or low muscle mass, and may affect results. Cystatin C with Glomerular Filtration Rate is a suitable alternative for these patients. ANION GAP 13 8 - 16 mmol/L 07/31/2024 3:03 AM [facility] Blood Venipuncture / Unknown 07/31/2024 1:45 AM SYSTEM ARCHITECT 07/31/2024 1:55 AM SYSTEM ARCHITECT us Sandhya Garcia MD CHEMISTRY ORDERABLES Final Resul t [facility] CLIA# [id number] [address] [place] [address] * EKG 12-LEAD (07/30/2024 9:52 PM SYSTEM ARCHITECT) 07/30/2024 9:52 PM [facility] Narrative INTERFACE SYSTEM - 07/31/2024 5:46 AM [facility] [address] [place] [address] Test Date: 2024-07-30 Pat Name: JARRELL STEEN Department: 100 Room: [facility] 1 Gender: Male Fixed Income Director: : 1945 Requested By: VINCENZO Lieberman Order Number: [id number] Reading MD: Franky Delacruz Measurements Intervals [place] Rate: 87 P: 46 WY: 191 QRS: 14 QRSD: 92 T: 0 QT: 380 QTc: 459 Interpretive Statements SINUS RHYTHM T-WAVE ABNORMALITY, CONSIDER ANTERIOR ISCHEMIA Electronically Signed On 07-31-2024 5:46:12 SYSTEM ARCHITECT by Franky Delacruz Procedure Note Franky Delacruz MD - 07/31/2024 [facility] [address] [place] [address] Test Date: 2024-07-30 Pat Name: JARRELL STEEN Department: 100 Room: [facility] 1 Gender: Male Fixed Income Director: : 1945 Requested By: VINCENZO Lieberman Order Number: [id number] Reading MD: Franky Delacruz Measurements Intervals [place] Rate: 87 P: 46 W[place]: 191 QRS: 14 QRSD: 92 T: 0 QT: 380 QTc: 459 Interpretive Statements SINUS RHYTHM T-WAVE ABNORMALITY, CONSIDER ANTERIOR ISCHEMIA Electronically Signed On 07-31-2024 5:46:12 SYSTEM ARCHITECT by Franky Delacruz us Sandhya Garcia MD ECG ORDERABLES Final Result Performing Organization Address City/State/[facility] Co de Phone Number INTERFACE SYSTEM Refer to clinic/hospital department * CT ABDOMEN PELVIS W CONTRAST (07/30/2024 2:02 PM SYSTEM ARCHITECT) Anatomical Region Laterality Modality Abdomen Computed Tomogra phy 07/30/2024 1:58 PM SYSTEM ARCHITECT Impressions 07/30/2024 2:19 PM SYSTEM ARCHITECT IMPRESSION: 1. Small right inguinal hernia contains [...] Iterative Reconstruction Technique. DICTATION LOCATION: Location 1 [facility] 07/30/2024 2:[address] ABDOMEN AND PELVIS WITH IV CONTRAST [...] Iterative Reconstruction Technique. DICTATION LOCATION: Location - [facility] us Vincenzo Richey MD CT ORDERABLES Final Result * POC CREATININE (07/30/2024 1:01 PM SYSTEM ARCHITECT) CREATININE POC 1.10 0.70 - 1.20 mg/dL 07/30/2024 1:01 PM SYSTEM ARCHITECT [facility] [employer] [facility] Comment:The GFR result is no t clinically significant on patients <18 or >70 years of age. GFR POC >60 mL/min/1.7 3 sq meter 07/30/2024 1:01 PM [facility] [employer] [facility] Comment:eGFR calculated with 2020 CKD-EPI equation. Vegetarian diet, extremely high or low muscle mass, and may affect results. Cystatin C with Glomerular Filtration Rate is a suitable alternative for these patients. Blood, whole 07/30/2024 1:01 PM SYSTEM ARCHITECT 07/30/2024 1:04 PM SYSTEM ARCHITECT Vincenzo Richey MD POINT OF CARE TESTING Final Result Performing Organization Address City/[facility]/ZIP Co de Phone Number [facility] [employer] [facility]# [id number] [address] [place] [address] * (ABNORMAL) HEMOGLOBIN A1C (07/30/2024 1:01 PM SYSTEM ARCHITECT) HEMOGLOBIN A1C 6.2(H) <5.7 % 07/30/2024 8:15 PM SYSTEM ARCHITECT [facility] EST. AVG GLUCOSE, A1C 131 mg/dL 07/30/2024 8:15 PM [facility] [employer] [facility] Blood Venipuncture / Unknown 07/30/2024 1:01 PM SYSTEM ARCHITECT 07/30/2024 1:23 PM SYSTEM ARCHITECT Narrative [facility] [employer] [facility] - 07/30/2024 8:15 PM SYSTEM ARCHITECT HGB A1C INTERPRETATION NORMAL: <5.7% PRE-DIABETES: 5.7 - 6.4% DIABETES: 6.5% OR GREATER Sandhya Garcia MD CHEMISTRY ORDERABLES Final Resul t [facility] [employer] [facility] CLIA# [id number] [address] [place] [address] * (ABNORMAL) COMPREHENSIVE METABOLIC PANEL (07/30/2024 1:01 PM SYSTEM ARCHITECT) SODIUM 138 136 - 145 mmol/L 07/30/2024 2:30 PM [facility] POTASSIUM 3.7 3.5 - 5.0 mmol/L 07/30/2024 2:30 PM [facility] [facility] . [facility] CHLORIDE 104 98 - 107 mmol/L 07/30/2024 2:30 PM [facility] [employer] [facility] CO2 22 22 - 29 mmol/L 07/30/2024 2:30 PM [facility] [employer] [facility] - . [facility] CALCIUM 9.3 8.6 - 10.2 mg/dL 07/30/2024 2:30 PM [facility] [employer] [facility] BUN 19 8 - 23 mg/dL 07/30/2024 2:30 PM [facility] CREATININE 1.06 0.67 - 1.17 mg/dL 07/30/2024 2:30 PM [facility] Comment:The GFR result is no t clinically significant on patients <18 or >70 years of age. GLUCOSE 183(H) 74 - 99 mg/dL 07/30/2024 2:30 PM [facility] LABORATORY [facility] TOTAL PROTEIN 6.2(L) 6.7 - 8.6 g/dL 07/30/2024 2:30 PM [facility] [employer] [facility] ALBUMIN 3.4(L) 3.5 - 5.2 g/dL 07/30/2024 2:30 PM [facility] [employer] [facility] BILIRUBIN TOTAL 0.3 0.2 - 1.1 mg/dL 07/30/2024 2:30 PM [facility] [employer] [facility] ALKALINE PHOSPHATASE 319(H) 40 - 129 U/L 07/30/2024 2:30 PM [facility] AST 24 <41 U/L 07/30/2024 2:30 PM [facility] ALT 16 <42 U/L 07/30/2024 2:30 PM [facility] [employer] [facility] GFR >60 mL/min/1.7 3 sq meter 07/30/2024 2:30 PM [facility] Comment:eGFR calculated with 2020 CKD-EPI equation. Vegetarian diet, extremely high or low muscle mass, and may affect results. Cystatin C with Glomerular Filtration Rate is a suitable alternative for these patients. ANION GAP 12 8 - 16 mmol/L 07/30/2024 2:30 PM [facility] Blood Venipuncture / Unknown 07/30/2024 1:01 PM SYSTEM ARCHITECT 07/30/2024 1:23 PM SYSTEM ARCHITECT Narrative [facility] - 07/30/2024 2:30 PM SYSTEM ARCHITECT Samples containing indocyanine green cause interferences on Total and/or Direct Bilirubin and must not be measured. Vincenzo Richey MD CHEMISTRY ORDERABLES Final R esult [facility]# [id number] [address] [facility] [place] [id number] from Last 3 Months Insurance MEDICARE PART A AND B MEDICARE PART A AND B [employer] Medicare Part D Advance Directives For more information, please contact: [phone] * Full Code (Latest Code Status on File) Date Activated Date Inactivated Comments 07/30/2024 7:03 PM 08/01/2024 2:50 PM Care Teams Shopper Insights Manager Relationship Specialty Start Date End Date Saw Ga MD [facility] [place] [address] PCP - General Family Practice 02/17/19
--- OUTSIDE RECORDS SUMMARY | 2024-08-31 18:58 | XMS_ITS | Clinical Summary ---
Author Organization [facility] Address [address] [place] [address] Care Team Providers Care Rn Chemical Dependency Name Role Phone Unavailable Primary Care Provider Unavailabl e Source Comments [facility],non-owned Affiliates and Associated Physician Practices is amultiple site organization consisting of ambulatory clinics and hospital sitesin [place], [place] and [place]. This disclosure is being madepursuant to the Care Everywhere program and may not contain all information available regarding this patient. Last updated 18.[facility] [employer] Social History Tobacco Use Types Packs/Day Years [...]
--- OUTSIDE RECORDS SUMMARY | 2024-08-31 18:58 | XMS_ITS | Encounter Summary ---
Author Organization [facility] Address [address] [place] [address] Care Team Providers Care Manugrapher Name Role Phone Saw Ga MD Primary Care Provider Encounter Details Date Type Department Care Team (Late st Contact Info) Description 01/02/2006 Outpatient Historical [facility] Trauma and General Surgery [address] [phone] [place] [address] [place] [id number] Social History Tobacco Use Types Packs/Day Years Used Date Smoking Tobacco: Never Assessed Sex and Gender Information Value Date Recorded Sex Assigned at Not on file Legal Sex Male 3:17 AM CREDIT COLLECTIONS MANAGER Gender Identity Not on file Sexual Orientation Not on file documented as of this encounter Plan of Treatment Not on file documented as of this encounter Visit Diagnoses Not on filedocumented in this encounter Additional Health Concerns Infection Onset Date Last Indicated Resolved Time R/O C. diff 07/30/2024 07/30/2024 07/31/2024 7:00 PM CREDIT COLLECTIONS MANAGER documented as of this encounter Care Teams Manugrapher Relationship Specialty Start Date End Date Saw Ga MD [address] [place] [id number] PCP - General Family Practice 02/17/19 documented as of this encounter
--- OUTSIDE RECORDS SUMMARY | 2024-08-31 18:58 | XMS_ITS | Encounter Summary ---
Author Organization [facility] [employer] Address [address] [place] [address] Care Team Providers Care Inside Meter Tester Name Role Phone Saw Ga MD Primary Care Provider [phone] Encounter Details Date Type Department Care Team (Late st Contact Info) Description 01/13/2006 Outpatient Historical [facility] [place] [address] [place] [address] Cervical Spondylosis without Myelopathy (Primary Dx) Social History Tobacco Use Types Packs/Day Years Used Date Smoking Tobacco: Never Assessed Sex and Gender Information Value Date Recorded Sex Assigned at Not on file Legal Sex Male 3:17 AM NURSING HOME MANAGER Gender Identity Not on file Sexual Orientation Not on file documented as of this encounter Plan of Treatment Not on file documented as of this encounter Visit Diagnoses Diagnosis Cervical spondylosis without myelopathy- Primary documented in this encounter Additional Health Concerns Infection Onset Date Last Indicated Resolved Time R/O C. diff 07/30/2024 07/30/2024 07/31/2024 7:00 PM NURSING HOME MANAGER documented as of this encounter Care Teams Inside Meter Tester Relationship Specialty Start Date End Date Saw Ga MD [address] [place] [phone] PCP - General Family Practice 02/17/19 documented as of this encounter
--- OUTSIDE RECORDS SUMMARY | 2024-08-31 18:58 | XMS_ITS | CONTINUITY OF CARE DOCUMENT ---
Author Name jimmy marquez Address Unknown Organization [facility] Address [address] [place] [address] [address] [place] [address] Phone [phone] Care Team Providers Care Rn Behavioral Health Name Role Phone jimmy marquez Unavailable Unavailable
--- OUTSIDE RECORDS SUMMARY | 2024-08-31 18:58 | XMS_ITS ---
Author Organization [facility] Address [address] [place] [address] Care Team Providers Care Leach Cell Operator Name Role Phone Saw Ga MD Primary Care Provider [phone] Active Problems Problem Noted Date Diagnosed Date [...]
--- OUTSIDE RECORDS SUMMARY | 2024-08-31 18:58 | XMS_ITS | Encounter Summary ---
Author Organization [facility] Address [address] [place] [address] Care Team Providers Care Hvac R Tech Name Role Phone Saw Ga MD Primary Care Provider [phone] Encounter Details Date Type Department Care Team (Late st Contact Info) Description 01/06/2006 Outpatient Historical [facility] Patrick Mohan MD [facility] [place] [address] Er, Authorized P NO ADDRESS ON FILE Swelling of Limb (Primary Dx) Social History Tobacco Use Types Packs/Day Years Used Date Smoking Tobacco: Never Assessed Sex and Gender Information Value Date Recorded Sex Assigned at Not on file Legal Sex Male 3:17 AM GARBAGE MAN Gender Identity Not on file Sexual Orientation [...] 0.00 - 0.20 K/uL INTERFACE SYSTEM 01/06/2006 5:1 5 PM CDT Patrick Mohan MD HEMATOLOGY ORDERABLES Final Resu lt Performing Organization Address City/[facility] Phone Number INTERFACE SYSTEM Refer to clinic/hospital [...] ORDERABLES Final Resu lt Performing Organization Address [facility] de Phone Number INTERFACE SYSTEM Refer to clinic/hospital department * C-REACTIVE PROTEIN (01/06/2006 5:15 PM CDT) CRP 0.7 0.0 - 0.8 mg/dL INTERFACE SYSTEM 01/06/2006 5:15 PM CDT Patrick Mohan MD CHEMISTRY ORDERABLES Final Resul t Performing Organization Address [facility] Phone Number INTERFACE SYSTEM Refer to clinic/hospital [...] ORDERABLES Final Resul t Performing Organization Address City/[facility] Co mo Phone Number INTERFACE SYSTEM Refer to clinic/hospital department documented in this encounter Visit Diagnoses Diagnosis Swelling of limb- Primary documented in this encounter Additional Health Concerns Infection Onset Date Last Indicated Resolved Time R/O C. diff 07/30/2024 07/30/2024 07/31/2024 7:00 PM GARBAGE MAN documented as of this encounter Care Teams Hvac R Tech Relationship Specialty Start Date End Date Saw Ga MD [address] [place] [address] PCP - General Family Practice 02/17/19 documented as of this encounter
--- OUTSIDE RECORDS SUMMARY | 2024-08-31 18:58 | XMS_ITS | Encounter Summary ---
Author Organization [facility] Address [address] [place] [address] Care Team Providers Care Jewelry Appraiser Name Role Phone Saw Ga MD Primary Care Provider [phone] Encounter Details Date Type Department Care Team (Late st Contact Info) Description 01/06/2006 Outpatient Historical [facility] Blood Flow [address] [place] [address] Gonzalo Polk MD NO ADDRESS ON FILE Social History Tobacco Use Types Packs/Day Years Used Date Smoking Tobacco: Never Assessed Sex and Gender Information Value Date Recorded Sex Assigned at Not on file Legal Sex Male 3:17 AM SHOE IRONER Gender Identity Not on file Sexual Orientation Not on file documented as of this encounter Plan of Treatment Not on file documented as of this encounter Visit Diagnoses Not on filedocumented in this encounter Additional Health Concerns Infection Onset Date Last Indicated Resolved Time R/O C. diff 07/30/2024 07/30/2024 07/31/2024 7:00 PM SHOE IRONER documented as of this encounter Care Teams Jewelry Appraiser Relationship Specialty Start Date End Date Saw Ga MD [address] [place] [phone] PCP - General Family Practice 02/17/19 documented as of this encounter
--- OUTSIDE RECORDS SUMMARY | 2024-08-31 18:58 | XMS_ITS | Encounter Summary ---
Author Organization [facility] Address [address] [place] [address] Phone Care Team Providers Care Weaving Professor Name Role Phone Saw Ga MD Primary Care Provider [phone] Devon Carlin MD Unavailable [phone] Encounter Details Date Type Department Care Team [...] on file Legal Sex Male 4:28 AM COUNCILMAN Gender Identity Not on file Sexual Orientation [...] on filedocumented in this encounter Care Teams Weaving Professor Relationship Specialty Start Date End Date Saw Ga MD [address] [address] PCP - General 10/20/16 [place] [address] [place] [address] MEDICAL ONCOLOGY, [facility] [address] [place] [address] Medical Oncology 12/21/23 documented as of this encounter
--- OUTSIDE RECORDS SUMMARY | 2024-08-31 18:59 | XMS_ITS ---
Author Organization [facility] [address] Address [address] [place] [address] Care Team Providers Care Master Deputy Sheriff Court Security Name Role Phone Saw Ga MD Primary Care Provider [phone] Devon Carlin MD Unavailable [phone] Active Problems Problem Noted Date Diagnosed Date [...] diet and return precautions Metastasis to bone ([facility]) 12/27/2023 Prostate cancer 12/27/2023 Constipation 12/19/2023 Assessment [...] 12:21 PM CDT): Follows with [facility] oncology for prostate cancer, initially diagnosed [...] outpatient follow-up with the oncologist here at [facility]. Oncology to arrange follow-up at discharge [...] plans. - Discussed with beverley GIBSON with [facility] for DVT ppx Assessment & Plan (11/22/2023 2:54 PM CDT): Neurosurgery team for 3 mm R frontal SDH, which was managed non-operatively, and followed with stable serial imaging. This patient was staffed with Dr. Avendano The patient should be seen in clinic in 4-6 weeks with a non-contrast head CT. OK for [facility] for DVT prophylaxis and Q4H [...] home Coumadin, continue metoprolol for rate control Internet Specialist Dr Escamilla aware (11/21) plan for watchman [...] treatments are documented for this patient in [facility]. Treatments may have been administered in another system. Lifetime Dose Tracking * Chemical Lifetime Dose Automatic Entry Manual Entr y DLP 4,216 mGycm 4,216 mGycm 0 mGycm
--- OUTSIDE RECORDS SUMMARY | 2024-08-31 18:59 | XMS_ITS | Referral Summary ---
Author Organization [facility] [id number] Address [address] [place] [address] Care Team Providers Care Inspector Materials And Processes Name Role Phone Saw Ga MD Primary Care Provider [phone] Devon Carlin MD Unavailable [phone] Encounters Date Type Department Care Team Description 08/29/2024 Orders Only [facility] Oncology [address] [place] [address] Devon Carlin MD 08/28/2024 9:30 AM CONSULTANT IN ERGONOMICS AND SAFETY Infusion [facility] - Infusion [address] [facility] Floor [address] [place] [address] Prostate cancer (HCC) (Primary Dx); Metastasis to bone (CMS/HCC) (HCC) 08/28/2024 7:30 AM CONSULTANT IN ERGONOMICS AND SAFETY Lab [facility] - Lab Collection [facility] Floor [address] [place] [address] Metastasis to bone (CMS/HCC) (HCC); Prostate cancer (HCC) 08/28/2024 8:30 AM CONSULTANT IN ERGONOMICS AND SAFETY Office Visit [facility] Oncology [facility] Floor [address] [place] [address] Devon Carlin MD Prostate cancer (HCC) (Primary Dx); Metastasis to bone (CMS/HCC) (HCC) 08/06/2024 Telephone [facility] Oncology [address] Floor [address] [place] [phone] Devendra Jane RN 07/28/2024 Telephone [facility] Neurosurgery [address] [facility] 6th [place] [address] Belkis Hoang PA 07/25/2024 8:00 AM CONSULTANT IN ERGONOMICS AND SAFETY Infusion [facility] - Infusion [address] Floor [address] [place] [address] Prostate cancer (HCC) (Primary Dx); Metastasis to bone (CMS/HCC) (HCC) 07/25/2024 7:15 AM CONSULTANT IN ERGONOMICS AND SAFETY Lab [facility] - Lab Collection [address] Floor [address] [place] [address] Metastasis to bone (CMS/HCC) (HCC); Prostate cancer (HCC) 07/25/2024 8:15 AM CONSULTANT IN ERGONOMICS AND SAFETY Infusion [facility] - Infusion [address] Floor [address] [place] [address] Metastasis to bone (CMS/HCC) (HCC); Prostate cancer (HCC) 07/21/2024 Orders Only [facility] Oncology [address] [place] [address] Devon Carlin MD 07/21/2024 Orders Only [facility] Oncology [address] [place] [address] Devon Carlin MD 07/17/2024 9:00 AM CONSULTANT IN ERGONOMICS AND SAFETY Infusion [facility] Infusion [address] [place] [address] Prostate cancer (HCC) (Primary Dx); Metastasis to bone (CMS/HCC) (HCC) 07/17/2024 7:45 AM CONSULTANT IN ERGONOMICS AND SAFETY Lab [facility] - Lab Collection [address] [place] [address] Metastasis to bone (CMS/HCC) (HCC); Prostate cancer (HCC) 07/17/2024 8:45 AM CONSULTANT IN ERGONOMICS AND SAFETY Office Visit [facility] Oncology [address] [facility] Floor [address] [place] [address] Devon Carlin MD Prostate cancer (HCC) (Primary Dx); Metastasis to bone (CMS/HCC) (HCC) 07/03/2024 7:30 AM CONSULTANT IN ERGONOMICS AND SAFETY Infusion [facility] - Infusion [address] [place] [address] Prostate cancer (HCC) (Primary Dx); Metastasis to bone (CMS/HCC) (HCC) 07/03/2024 6:45 AM CONSULTANT IN ERGONOMICS AND SAFETY Lab [facility] - Lab Collection [address] Floor [address] [place] [address] Metastasis to bone (CMS/HCC) (HCC); Prostate cancer (HCC) 06/26/2024 7:00 AM CONSULTANT IN ERGONOMICS AND SAFETY Lab [facility] - Lab Collection [facility] [place] [address] Metastasis to bone (CMS/HCC) (HCC); Prostate cancer (HCC) 06/26/2024 8:15 AM CONSULTANT IN ERGONOMICS AND SAFETY Office Visit [facility] Oncology [facility] Floor [address] [place] [address] Devon Carlin MD Prostate cancer (HCC) (Primary Dx); Metastasis to bone (CMS/HCC) (HCC) 06/26/2024 9:30 AM CONSULTANT IN ERGONOMICS AND SAFETY Infusion [facility] - Infusion [address] Floor [address] [place] [address] Prostate cancer (HCC) (Primary Dx); Metastasis to bone (CMS/HCC) (HCC) 06/12/2024 7:00 AM CONSULTANT IN ERGONOMICS AND SAFETY Lab [facility] - Lab Collection [facility] [address] [place] [address] Prostate cancer (HCC) (Primary Dx); Metastasis to bone (CMS/HCC) (HCC) 06/12/2024 8:00 AM CONSULTANT IN ERGONOMICS AND SAFETY Infusion [facility] - Infusion [address] Floor [address] [place] [address] Prostate cancer (HCC) (Primary Dx); Metastasis to bone (CMS/HCC) (HCC) 06/05/2024 9:00 AM CONSULTANT IN ERGONOMICS AND SAFETY Office Visit [facility] Oncology [address] [place] [address] Floor [address] [place] [phone] Devon Carlin MD Prostate cancer (HCC) (Primary Dx); Metastasis to bone (CMS/HCC) (HCC) 06/05/2024 8:00 AM CONSULTANT IN ERGONOMICS AND SAFETY Lab [facility] - Lab Collection [address] [facility] Floor [address] [place] [address] Metastasis to bone (CMS/HCC) (HCC); Prostate cancer (HCC) 06/05/2024 10:00 AM CONSULTANT IN ERGONOMICS AND SAFETY Infusion [facility] - Infusion [address] Floor [address] [place] [address] Prostate cancer (HCC) (Primary Dx); Metastasis to bone (CMS/HCC) (HCC) 06/03/2024 Telephone [facility] Oncology [address] [place] [address] Floor [address] [place] [address] Devendra Jane RN 06/03/2024 Orders Only [facility] Oncology [address] [place] [address] Floor [address] [place] [address] Devon Carlin MD Prostate cancer [...] bowel reg Acute nonintractable headache, unspecified heada joyn type 12/18/2023 Assessment & Plan (12/21/2023 12:21 [...] Plan (12/21/2023 12:21 PM CDT): Follows with [facility] oncology for prostate cancer, initially [...] outpatient follow-up with the oncologist here at [facility]. Oncology to arrange follow-up at discharge Assessment [...] plans. - Discussed with beverley GIBSON with [facility] for DVT ppx Assessment & Plan (11/22/2023 2:54 PM CDT): Neurosurgery team for 3 mm R frontal SDH, which was managed non-operatively, and followed with stable serial imaging. This patient was staffed with Dr. Avendano The patient should be seen in clinic in 4-6 weeks with a non-contrast head CT. OK for [facility] for DVT prophylaxis and Q4H NC. [...] CPAP qHS Chronic anticoagulation 02/05/2017 Atrial fibrillation ([facility]/HCC) 09/13/2011 Overview (10/27/2016): Atrial fibrillation Assessment & Plan (01/17/2024 7:25 PM CDT): Paroxysmal. Currently not on anticoagulation due to recent SDH. NSR on presentation. 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 Never 12/20/2023 Do you belong to any clubs o r organizations such as jain groups, unions, fraternal or athletic groups, or [...] medical care, and heating? Somewhat hard 12/20/2023 [facility] [place] [facility] - Occupational Stress [...] place to sleep or slept in a group home (including now)? No 11/21/2023 Housing Stability [...] any time in the past 12 m [facility], were you homeless or living in a group home (including now)? No 12/20/2023 Personal Safety Answer Date Recorded Have you ever been in or are you currently in a harmful physical or emotional relationship or is someone making you feel afraid or unsafe? Denies 03/14/2024 Sex and Gender Information Value Date Recorded Sex Assigned at Not on file Legal Sex Male 4:28 AM CONSULTANT IN ERGONOMICS AND SAFETY Gender Identity Not on file Sexual Orientation Not on file Last Filed Vital Signs Vital Sign Reading Time Taken Comments Blood Pressure 136/55 08/28/2024 7:58 AM CONSULTANT IN ERGONOMICS AND SAFETY Pulse 88 08/28/2024 7:58 AM CONSULTANT IN ERGONOMICS AND SAFETY Temperature 36.3 C (97.3 F) 08/28/2024 7:58 AM CONSULTANT IN ERGONOMICS AND SAFETY Respiratory Rate 18 08/28/2024 7:58 AM CONSULTANT IN ERGONOMICS AND SAFETY Oxygen Saturation 92% 08/28/2024 7:58 AM CONSULTANT IN ERGONOMICS AND SAFETY Inhaled Oxygen Concentration - - Weight 77.8 kg (171 lb 9.6 oz) 08/28/2024 7:58 A M CONSULTANT IN ERGONOMICS AND SAFETY Height 168.9 cm (5' 6.5 ) 08/28/2024 7:58 AM CONSULTANT IN ERGONOMICS AND SAFETY Body Mass Index 27.28 08/28/2024 7:58 AM CONSULTANT IN ERGONOMICS AND SAFETY Plan of Treatment Not on file Procedures Procedure Name Priority Date/Time Associated Diagnosis Comments EGFR Routine 08/28/2024 7:48 AM CONSULTANT IN ERGONOMICS AND SAFETY Metastasis to bone (CMS/HCC) (HCC) Prostate cancer (HCC) DIFFERENTIAL AUTO Routine 08/28/2024 7:4 8 AM CONSULTANT IN ERGONOMICS AND SAFETY Metastasis to bone (CMS/HCC) (HCC) Prostate cancer (HCC) PSA DIAGNOSTIC Routine 08/28/2024 7:48 AM CONSULTANT IN ERGONOMICS AND SAFETY Metastasis to bone (CMS/HCC) (HCC) Prostate cancer (HCC) TOTAL TESTOSTERONE Routine 08/28/2024 7: 48 AM CONSULTANT IN ERGONOMICS AND SAFETY Metastasis to bone (CMS/HCC) (HCC) Prostate cancer (HCC) CBC WITH AUTO DIFFERENTIAL Routine 08/28/2024 7:48 AM CONSULTANT IN ERGONOMICS AND SAFETY Metastasis to bone (CMS/HCC) (HCC) Prostate cancer (HCC) COMPREHENSIVE METABOLIC PANEL Routine 08/28/2024 7:48 AM CONSULTANT IN ERGONOMICS AND SAFETY Metastasis to bone (CMS/HCC) (HCC) Prostate cancer (HCC) EGFR Routine 07/25/2024 7:35 AM CONSULTANT IN ERGONOMICS AND SAFETY Metastasis to bone (CMS/HCC) (HCC) Prostate cancer (HCC) DIFFERENTIAL AUTO Routine 07/25/2024 7:3 5 AM CONSULTANT IN ERGONOMICS AND SAFETY Metastasis to bone (CMS/HCC) (HCC) Prostate cancer (HCC) CBC WITH AUTO DIFFERENTIAL Routine 07/25/2024 7:35 AM CONSULTANT IN ERGONOMICS AND SAFETY Metastasis to bone (CMS/HCC) (HCC) Prostate cancer (HCC) COMPREHENSIVE METABOLIC PANEL Routine 07/25/2024 7:35 AM CONSULTANT IN ERGONOMICS AND SAFETY Metastasis to bone (CMS/HCC) (HCC) Prostate cancer (HCC) DIFFERENTIAL AUTO Routine 07/17/2024 8:0 5 AM CONSULTANT IN ERGONOMICS AND SAFETY Metastasis to bone (CMS/HCC) (HCC) Prostate cancer (HCC) CBC WITH AUTO DIFFERENTIAL Routine 07/17/2024 8:05 AM CONSULTANT IN ERGONOMICS AND SAFETY Metastasis to bone (CMS/HCC) (HCC) Prostate cancer (HCC) EGFR Routine 07/17/2024 7:58 AM CONSULTANT IN ERGONOMICS AND SAFETY Metastasis to bone (CMS/HCC) (HCC) Prostate cancer (HCC) PSA DIAGNOSTIC Routine 07/17/2024 7:58 AM CONSULTANT IN ERGONOMICS AND SAFETY Metastasis to bone (CMS/HCC) (HCC) Prostate cancer (HCC) TOTAL TESTOSTERONE Routine 07/17/2024 7: 58 AM CONSULTANT IN ERGONOMICS AND SAFETY Metastasis to bone (CMS/HCC) (HCC) Prostate cancer (HCC) COMPREHENSIVE METABOLIC PANEL Routine 07/17/2024 7:58 AM CONSULTANT IN ERGONOMICS AND SAFETY Metastasis to bone (CMS/HCC) (HCC) Prostate cancer (HCC) EGFR Routine 07/03/2024 7:25 AM CONSULTANT IN ERGONOMICS AND SAFETY Metastasis to bone (CMS/HCC) (HCC) Prostate cancer (HCC) COMPREHENSIVE METABOLIC PANEL Routine 07/03/2024 7:25 AM CONSULTANT IN ERGONOMICS AND SAFETY Metastasis to bone (CMS/HCC) (HCC) Prostate cancer (HCC) MANUAL DIFFERENTIAL Routine 07/03/2024 7 :23 AM CONSULTANT IN ERGONOMICS AND SAFETY Metastasis to bone (CMS/HCC) (HCC) Prostate cancer (HCC) CBC WITH AUTO DIFFERENTIAL Routine 07/03/2024 7:23 AM CONSULTANT IN ERGONOMICS AND SAFETY Metastasis to bone (CMS/HCC) (HCC) Prostate cancer (HCC) EGFR Routine 06/26/2024 7:50 AM CONSULTANT IN ERGONOMICS AND SAFETY Metastasis to bone (CMS/HCC) (HCC) Prostate cancer (HCC) DIFFERENTIAL AUTO Routine 06/26/2024 7:5 0 AM CONSULTANT IN ERGONOMICS AND SAFETY Metastasis to bone (CMS/HCC) (HCC) Prostate cancer (HCC) CBC WITH AUTO DIFFERENTIAL Routine 06/26/2024 7:50 AM CONSULTANT IN ERGONOMICS AND SAFETY Metastasis to bone (CMS/HCC) (HCC) Prostate cancer (HCC) TOTAL TESTOSTERONE Routine 06/26/2024 7: 50 AM CONSULTANT IN ERGONOMICS AND SAFETY Metastasis to bone (CMS/HCC) (HCC) Prostate cancer (HCC) PSA DIAGNOSTIC Routine 06/26/2024 7:50 AM CONSULTANT IN ERGONOMICS AND SAFETY Metastasis to bone (CMS/HCC) (HCC) Prostate cancer (HCC) COMPREHENSIVE METABOLIC PANEL Routine 06/26/2024 7:50 AM CONSULTANT IN ERGONOMICS AND SAFETY Metastasis to bone (CMS/HCC) (HCC) Prostate cancer (HCC) EGFR STAT 06/12/2024 8:20 AM CONSULTANT IN ERGONOMICS AND SAFETY Metastasis to bone (CMS/HCC) (HCC) Prostate cancer (HCC) COMPREHENSIVE METABOLIC PANEL STAT 06/12/2024 8:20 AM CONSULTANT IN ERGONOMICS AND SAFETY Metastasis to bone (CMS/HCC) (HCC) Prostate cancer (HCC) DIFFERENTIAL AUTO Routine 06/12/2024 7:2 4 AM CONSULTANT IN ERGONOMICS AND SAFETY Metastasis to bone (CMS/HCC) (HCC) Prostate cancer (HCC) CBC WITH AUTO DIFFERENTIAL Routine 06/12/2024 7:24 AM CONSULTANT IN ERGONOMICS AND SAFETY Metastasis to bone (CMS/HCC) (HCC) Prostate cancer (HCC) EGFR Routine 06/05/2024 8:47 AM CONSULTANT IN ERGONOMICS AND SAFETY Metastasis to bone (CMS/HCC) (HCC) Prostate cancer (HCC) DIFFERENTIAL AUTO Routine 06/05/2024 8:4 7 AM CONSULTANT IN ERGONOMICS AND SAFETY Metastasis to bone (CMS/HCC) (HCC) Prostate cancer (HCC) PSA DIAGNOSTIC Routine 06/05/2024 8:47 AM CONSULTANT IN ERGONOMICS AND SAFETY Metastasis to bone (CMS/HCC) (HCC) Prostate cancer (HCC) TOTAL TESTOSTERONE Routine 06/05/2024 8: 47 AM CONSULTANT IN ERGONOMICS AND SAFETY Metastasis to bone (CMS/HCC) (HCC) Prostate cancer (HCC) CBC WITH AUTO DIFFERENTIAL Routine 06/05/2024 8:47 AM CONSULTANT IN ERGONOMICS AND SAFETY Metastasis to bone (CMS/HCC) (HCC) Prostate cancer (HCC) COMPREHENSIVE METABOLIC PANEL Routine 06/05/2024 8:47 AM CONSULTANT IN ERGONOMICS AND SAFETY Metastasis to bone (CMS/HCC) (HCC) Prostate cancer (HCC) CT CHEST ABDOMEN PELVIS W CONTRAST Schedule Routine, Read Routine (OP Routine) 2024 7:47 AM CDT Metastasis to bone (CMS/HCC) (HCC) Prostate cancer (HCC) from Last 3 Months or Most Recently Relevant to Health Maintenance Results * eGFR (08/28/2024 7:48 AM CONSULTANT IN ERGONOMICS AND SAFETY) eGFR 74 >=60 mL/min/1. 73 m2 Comment: [...] last reviewed 2021. Blood 08/28/2024 7:48 AM CONSULTANT IN ERGONOMICS AND SAFETY 08/28/2024 7:58 AM CONSULTANT IN ERGONOMICS AND SAFETY us Devon Carlin MD LAB BLOOD ORDERABLES Fin al Result [facility] Department [place] [address] * (ABNORMAL) Differential, auto (08/28/2024 7:48 AM CONSULTANT IN ERGONOMICS AND SAFETY) Neutrophil abs 6.6(H) 1.5 - 6.5 K/cumm Comment:Testing performed by : [facility]e [facility], [address] [place], [place] [phone] Lymphocyte abs 1.5 0.8 - 3.3 K/cumm [facility] Comment:Testing performed by : [facility], [address] [place] [phone] Monocyte abs 0.4 0.2 - 0.8 K/cumm [facility] Comment:Testing performed by : [facility], [address] [place] [phone] Eosinophil abs 0.0 0.0 - 0.5 K/cumm [facility] Comment:Testing performed by : [facility], [address] [place] [phone] Basophil abs 0.1 0.0 - 0.1 K/cumm [facility] Comment:Testing performed by : [facility], [address] [place], [place] [phone] Neutrophil pct 76.8 % [facility] Comment: Interpretive Data Percent cell count reference ranges are not reported, since discordance with absolute values may lead to misinterpretation of CBC data. Current Interpretive Data was last revised on 2017. Testing performed by: [facility], [address] [place] [phone] Lymphocyte pct 17.0 % [facility] Comment: Interpretive Data Percent cell count reference ranges are not reported, since discordance with absolute values may lead to misinterpretation of CBC data. Current Interpretive Data was last revised on 2017. Testing performed by: [facility], [address] [place] [phone] Monocyte pct 4.9 % [facility]USAIN Comment: Interpretive Data Percent cell count reference ranges are not reported, since discordance with absolute values may lead to misinterpretation of CBC data. Current Interpretive Data was last revised on 2017. Testing performed by: [facility], [address] [place] [phone] Eosinophil pct 0.4 % NERY HUSAIN Comment: Interpretive Data Percent cell count reference ranges are not reported, since discordance with absolute values may lead to misinterpretation of CBC data. Current Interpretive Data was last revised on 2017. Testing performed by: [facility], [address] [place] [phone] Basophil pct 0.9 % NERY HUSAIN Comment: Interpretive Data Percent cell count reference ranges are not reported, since discordance with absolute values may lead to misinterpretation of CBC data. Current Interpretive Data was last revised on 2017. Testing performed by: [facility], [address] [place] [phone] Blood 08/28/2024 7:48 AM CONSULTANT IN ERGONOMICS AND SAFETY 08/28/2024 8:00 AM CONSULTANT IN ERGONOMICS AND SAFETY us Devon Carlin MD LAB BLOOD ORDERABLES Fin al Result [facility]ERY HUSAIN [facility] Department [place] [address] * (ABNORMAL) CBC with auto differential (08/28/2024 7:48 AM CONSULTANT IN ERGONOMICS AND SAFETY) WBC 8.6 3.8 - 9.9 K/cumm Comment:Testing performed by : [facility], [address] [place] [address] Hgb 9.5(L) 13.0 - 17.5 g/dL [facility] Comment:Testing performed by : [facility], [address] [place] [address] Hct 29.4(L) 38.9 - 50.3 % [facility] Comment:Testing performed by : [facility], [address] [place] [address] Plt 568(H) 150 - 400 K/cumm [facility] Comment:Testing performed by : [facility], [address] [place] [address] MPV 7.2 6.8 - 10.4 fL [facility] Comment:Testing performed by : [facility], [address] [place] [address] RBC 3.52(L) 4.30 - 5.80 M/cumm [facility] Comment:Testing performed by : [facility], [address] [place] [address] MCV 83.5 81.3 - 96.4 fL [facility] Comment:Testing performed by : [facility], [address] [place] [address] MCH 27.0(L) 27.1 - 33.3 pg [facility] Comment:Testing performed by : [facility], [address] [place] [address] MCHC 32.4 32.3 - 35.7 g/dL [facility] Comment:Testing performed by : [facility], [address] [place] [address] RDW CV 19.4(H) 11.1 - 14.9 % [facility] Comment:Testing performed by : [facility], [address] [place] [address] NRBC abs 0.00 0.00 - 0.01 K/cumm [facility] Comment:Testing performed by : [facility], [address] [place] [address] Blood 08/28/2024 7:48 AM CONSULTANT IN ERGONOMICS AND SAFETY 08/28/2024 8:00 AM CONSULTANT IN ERGONOMICS AND SAFETY Devon Carlin MD LAB BLOOD ORDERABLES Fin al Result Performing Organization Address City/[facility] Co de Phone Number NERY [facility] [place] [address] * (ABNORMAL) Total testosterone (08/28/2024 7:48 AM CONSULTANT IN ERGONOMICS AND SAFETY) Testosterone <5.0(L) 193.0 - 740.0 ng/dL Blood 08/28/2024 7:48 AM CONSULTANT IN ERGONOMICS AND SAFETY 08/28/2024 8:20 AM CONSULTANT IN ERGONOMICS AND SAFETY Devon Carlin MD LAB BLOOD ORDERABLES Fin al Result Performing Organization Address [facility] de Phone Number [facility] [place] [address] * (ABNORMAL) PSA diagnostic (08/28/2024 7:48 AM CONSULTANT IN ERGONOMICS AND SAFETY) PSA-Total 188.00(H) <=6.20 ng/mL Comment: Interpretive Data [...] last revised 21. Blood 08/28/2024 7:48 AM CONSULTANT IN ERGONOMICS AND SAFETY 08/28/2024 7:58 AM CONSULTANT IN ERGONOMICS AND SAFETY Devon Carlin MD LAB BLOOD ORDERABLES Fin al Result Performing Organization Address [facility] Co de Phone Number [facility] [place] [address] * (ABNORMAL) Comprehensive metabolic panel (08/28/2024 7:48 AM CONSULTANT IN ERGONOMICS AND SAFETY) Sodium 140 135 - 145 mmol/L Potassium, pl 4.4 3.3 - 4.9 mmol/L [facility] Chloride 100 97 - 110 mmol/L [facility] CO2 29 22 - 32 mmol/L [facility] Anion gap 11 2 - 15 mmol/L [facility] BUN 23 6 - 25 mg/dL [facility] Creatinine 1.03 0.80 - 1.30 mg/dL [facility] Glucose 166 70 - 199 mg/dL [facility] Comment: Interpretive Data Fasting glucose >/= [...] 2022. Calcium 9.7 8.5 - 10.3 mg/dL [facility] Bilirubin, total 0.3 0.1 - 1.2 mg/dL [facility] Protein, pl 7.1 6.5 - 8.5 g/dL [facility] Albumin 3.4(L) 3.5 - 5.0 g/dL [facility] Alk phos 411(H) 40 - 130 Units/L [facility] ALT 38 7 - 55 Units/L [facility] AST 36 10 - 50 Units/L [facility] Blood 08/28/2024 7:48 AM CONSULTANT IN ERGONOMICS AND SAFETY 08/28/2024 7:58 AM CONSULTANT IN ERGONOMICS AND SAFETY us Devon Carlin MD LAB BLOOD ORDERABLES Fin al Result [facility] Department [place] [address] * eGFR (07/25/2024 7:35 AM CONSULTANT IN ERGONOMICS AND SAFETY) Pathologist [facility] eGFR 67 >=60 mL/min/1. 73 m2 Comment: [...] last reviewed 2021. Blood 07/25/2024 7:35 AM CONSULTANT IN ERGONOMICS AND SAFETY 07/25/2024 7:40 AM CONSULTANT IN ERGONOMICS AND SAFETY us Devon Carlin MD LAB BLOOD ORDERABLES Fin al Result NERY HUSAIN [facility] Department [place] [address] * (ABNORMAL) Differential, auto (07/25/2024 7:35 AM CONSULTANT IN ERGONOMICS AND SAFETY) [facility] Neutrophil abs 5.7 1.5 - 6.5 K/cumm Comment:Testing performed by : [facility], [address] [place] [phone] Lymphocyte abs 1.3 0.8 - 3.3 K/cumm NERY HUSAIN Comment:Testing performed by : [facility], [address] [place] [phone] Monocyte abs 0.3 0.2 - 0.8 K/cumm NERY HUSAIN Comment:Testing performed by : [facility], [address] [place] [phone] Eosinophil abs 0.1 0.0 - 0.5 K/cumm [facility] Comment:Testing performed by : [facility], [address] [place] [phone] Basophil abs 0.2(H) 0.0 - 0.1 K/cumm [facility] Comment:Testing performed by : [facility], [address] [place] [phone] Neutrophil pct 75.6 % [facility] Comment: Interpretive Data Percent cell count reference ranges are not reported, since discordance with absolute values may lead to misinterpretation of CBC data. Current Interpretive Data was last revised on 2017. Testing performed by: [facility], [address] [place] [phone] Lymphocyte pct 16.5 % [facility] Comment: Interpretive Data Percent cell count reference ranges are not reported, since discordance with absolute values may lead to misinterpretation of CBC data. Current Interpretive Data was last revised on 2017. Testing performed by: [facility], [address] [place] [phone] Monocyte pct 4.2 % [facility] Comment: Interpretive Data Percent cell count reference ranges are not reported, since discordance with absolute values may lead to misinterpretation of CBC data. Current Interpretive Data was last revised on 2017. Testing performed by: [facility], [address] [place] [phone] Eosinophil pct 1.7 % [facility] Comment: Interpretive Data Percent cell count reference ranges are not reported, since discordance with absolute values may lead to misinterpretation of CBC data. Current Interpretive Data was last revised on 2017. Testing performed by: [facility], [address] [place] [phone] Basophil pct 2.0 % [facility] Comment: Interpretive Data Percent cell count reference ranges are not reported, since discordance with absolute values may lead to misinterpretation of CBC data. Current Interpretive Data was last revised on 2017. Testing performed by: [facility], [address] [place], [place] [phone] Blood 07/25/2024 7:35 AM CONSULTANT IN ERGONOMICS AND SAFETY 07/25/2024 7:37 AM CONSULTANT IN ERGONOMICS AND SAFETY us Devon Carlin MD LAB BLOOD ORDERABLES Fin al Result [facility] [place] [address] * (ABNORMAL) CBC with auto differential (07/25/2024 7:35 AM CONSULTANT IN ERGONOMICS AND SAFETY) WBC 7.6 3.8 - 9.9 K/cumm Comment:Testing performed by : [facility], [address] [place] [address] Hgb 9.2(L) 13.0 - 17.5 g/dL CERGENE [facility] Comment:Testing performed by : [facility], [address] [place] [address] Hct 28.3(L) 38.9 - 50.3 % CERGENE [facility] Comment:Testing performed by : [facility], [address] [place] [address] Plt 448(H) 150 - 400 K/cumm CERGENE [facility] Comment:Testing performed by : [facility], [address] [place] [address] MPV 6.8 6.8 - 10.4 fL CERGENE [facility] Comment:Testing performed by : [facility], [address] [place] [address] RBC 3.28(L) 4.30 - 5.80 M/cumm CERGENE [facility] Comment:Testing performed by : [facility], [address] [place] [address] MCV 86.2 81.3 - 96.4 fL CERGENE [facility]J Comment:Testing performed by : [facility], [address] [place] [address] MCH 28.2 27.1 - 33.3 pg CERGENE [facility] Comment:Testing performed by : [facility], [address] [place] [phone] MCHC 32.7 32.3 - 35.7 g/dL [facility] Comment:Testing performed by : [facility], [address] [place] [address] RDW CV 19.3(H) 11.1 - 14.9 % [facility] Comment:Testing performed by : [facility], [address] [place] [address] NRBC abs 0.10(H) 0.00 - 0.01 K/cumm NERY [facility] Comment:Testing performed by : [facility], [address] [place] [phone] Blood 07/25/2024 7:35 AM CONSULTANT IN ERGONOMICS AND SAFETY 07/25/2024 7:37 AM CONSULTANT IN ERGONOMICS AND SAFETY us Devon Carlin MD LAB BLOOD ORDERABLES Fin al Result [facility] Department [place] [address] * (ABNORMAL) Comprehensive metabolic panel (07/25/2024 7:35 AM CONSULTANT IN ERGONOMICS AND SAFETY) Sodium 139 135 - 145 mmol/L Potassium, pl 4.4 3.3 - 4.9 mmol/L [facility] Chloride 103 97 - 110 mmol/L [facility] CO2 27 22 - 32 mmol/L [facility] Anion gap 9 2 - 15 mmol/L [facility] BUN 19 6 - 25 mg/dL [facility] Creatinine 1.12 0.80 - 1.30 mg/dL [facility] Glucose 151 70 - 199 mg/dL [facility] Comment: Interpretive Data Fasting glucose >/= [...] Calcium 9.3 8.5 - 10.3 mg/dL CERNER [facility] Bilirubin, total 0.4 0.1 - 1.2 mg/dL CERNER [facility] Protein, pl 6.4(L) 6.5 - 8.5 g/dL CERNER [facility] Albumin 3.5 3.5 - 5.0 g/dL CERNER [facility] Alk phos 350(H) 40 - 130 Units/L CERNER [facility] ALT 16 7 - 55 Units/L CERNER [facility] AST 21 10 - 50 Units/L [facility] Blood 07/25/2024 7:35 AM CONSULTANT IN ERGONOMICS AND SAFETY 07/25/2024 7:40 AM CONSULTANT IN ERGONOMICS AND SAFETY us Devon Carlin MD LAB BLOOD ORDERABLES Fin al Result [facility] Department [place] [address] * Differential, auto (07/17/2024 8:05 AM CONSULTANT IN ERGONOMICS AND SAFETY) Neutrophil abs 5.1 1.5 - 6.5 K/cumm Comment:Testing performed by : [facility], [address] [place] [phone] Lymphocyte abs 1.3 0.8 - 3.3 K/cumm CERNER [facility] Comment:Testing performed by : [facility], [address] [place] [phone] Monocyte abs 0.4 0.2 - 0.8 K/cumm CERNER [facility] Comment:Testing performed by : [facility], [address] [place] [phone] Eosinophil abs 0.0 0.0 - 0.5 K/cumm CERNER [facility] Comment:Testing performed by : [facility], [address] [place] [phone] Basophil abs 0.1 0.0 - 0.1 K/cumm CERNER [facility] Comment:Testing performed by : [facility], [address] [place] [phone] Neutrophil pct 74.1 % [facility]ER [facility] Comment: Interpretive Data Percent cell count reference ranges are not reported, since discordance with absolute values may lead to misinterpretation of CBC data. Current Interpretive Data was last revised on 2017. Testing performed by: [facility], [address] [place] [phone] Lymphocyte pct 19.1 % [facility] Comment: Interpretive Data Percent cell count reference ranges are not reported, since discordance with absolute values may lead to misinterpretation of CBC data. Current Interpretive Data was last revised on 2017. Testing performed by: [facility], [address] [place] [phone] Monocyte pct 5.6 % [facility] Comment: Interpretive Data Percent cell count reference ranges are not reported, since discordance with absolute values may lead to misinterpretation of CBC data. Current Interpretive Data was last revised on 2017. Testing performed by: [facility], [address] [place] [phone] Eosinophil pct 0.4 % [facility]ER [facility] Comment: Interpretive Data Percent cell count reference ranges are not reported, since discordance with absolute values may lead to misinterpretation of CBC data. Current Interpretive Data was last revised on 2017. Testing performed by: [facility], [address] [place] [phone] Basophil pct 0.8 % [facility]ER [facility] Comment: Interpretive Data Percent cell count reference ranges are not reported, since discordance with absolute values may lead to misinterpretation of CBC data. Current Interpretive Data was last revised on 2017. Testing performed by: [facility], [address] [place] [phone] Blood 07/17/2024 8:05 AM CONSULTANT IN ERGONOMICS AND SAFETY 07/17/2024 8:06 AM CONSULTANT IN ERGONOMICS AND SAFETY us Devon Carlin MD LAB BLOOD ORDERABLES Fin al Result NERY [facility] Department [place] [address] * (ABNORMAL) CBC with auto differential (07/17/2024 8:05 AM CONSULTANT IN ERGONOMICS AND SAFETY) WBC 6.9 3.8 - 9.9 K/cumm Comment:Testing performed by : [facility], [address] [place] [address] Hgb 9.8(L) 13.0 - 17.5 g/dL CERGENE HUSAIN Comment:Testing performed by : [facility], [address] [place] [address] Hct 30.1(L) 38.9 - 50.3 % CERGENE HUSAIN Comment:Testing performed by : [facility], [address] [place] [address] Plt 441(H) 150 - 400 K/cumm CERGENE [facility] Comment:Testing performed by : [facility], [address] [place] [address] MPV 6.6(L) 6.8 - 10.4 fL CERGENE [facility] Comment:Testing performed by : [facility], [address] [place] [address] RBC 3.45(L) 4.30 - 5.80 M/cumm CERGENE [facility] Comment:Testing performed by : [facility], [address] [place] [address] MCV 87.2 81.3 - 96.4 fL CERGENE [facility] Comment:Testing performed by : [facility], [address] [place] [address] MCH 28.4 27.1 - 33.3 pg CERGENE [facility]J Comment:Testing performed by : [facility], [address] [place] [address] MCHC 32.6 32.3 - 35.7 g/dL [facility]ERGENE [facility] Comment:Testing performed by : [facility], [address] [place] [address] RDW CV 18.8(H) 11.1 - 14.9 % [facility] Comment:Testing performed by : [facility], [address] [place] [phone] NRBC abs 0.10(H) 0.00 - 0.01 K/cumm NERY [facility] Comment:Testing performed by : [facility], [address] [place] [phone] Blood 07/17/2024 8:05 AM CONSULTANT IN ERGONOMICS AND SAFETY 07/17/2024 8:06 AM CONSULTANT IN ERGONOMICS AND SAFETY Devon Carlin MD LAB BLOOD ORDERABLES Fin al Result Performing Organization Address City/State/[facility] Co de Phone Number [facility] Department [place] [address] * eGFR (07/17/2024 7:58 AM CONSULTANT IN ERGONOMICS AND SAFETY) eGFR 63 >=60 mL/min/1. 73 m2 Comment: [...] last reviewed 2021. Blood 07/17/2024 7:58 AM CONSULTANT IN ERGONOMICS AND SAFETY 07/17/2024 8:07 AM CONSULTANT IN ERGONOMICS AND SAFETY Devon Carlin MD LAB BLOOD ORDERABLES Fin al Result Performing Organization Address City/State/[facility] Co de Phone Number [facility] [place] [place] [place] [address] * (ABNORMAL) Total testosterone (07/17/2024 7:58 AM CONSULTANT IN ERGONOMICS AND SAFETY) Testosterone <5.0(L) 193.0 - 740.0 ng/dL Blood 07/17/2024 7:58 AM CONSULTANT IN ERGONOMICS AND SAFETY 07/17/2024 8:21 AM CONSULTANT IN ERGONOMICS AND SAFETY Devon Carlin MD LAB BLOOD ORDERABLES Fin al Result Performing Organization Address [facility] Co de Phone Number [facility] [place] [address] * (ABNORMAL) PSA diagnostic (07/17/2024 7:58 AM CONSULTANT IN ERGONOMICS AND SAFETY) PSA-Total 132.00(H) <=6.20 ng/mL Comment: Interpretive Data [...] last revised 21. Blood 07/17/2024 7:58 AM CONSULTANT IN ERGONOMICS AND SAFETY 07/17/2024 8:07 AM CONSULTANT IN ERGONOMICS AND SAFETY Devon Carlin MD LAB BLOOD ORDERABLES Fin al Result Performing Organization Address [facility] Co de Phone Number NERY [facility] Department [place] [address] * (ABNORMAL) Comprehensive metabolic panel (07/17/2024 7:58 AM CONSULTANT IN ERGONOMICS AND SAFETY) Sodium 142 135 - 145 mmol/L Potassium, pl 3.8 3.3 - 4.9 mmol/L [facility] Chloride 105 97 - 110 mmol/L [facility] CO2 26 22 - 32 mmol/L [facility] Anion gap 11 2 - 15 mmol/L [facility] BUN 19 6 - 25 mg/dL [facility] Creatinine 1.18 0.80 - 1.30 mg/dL [facility] Glucose 184 70 - 199 mg/dL [facility] Comment: Interpretive Data Fasting glucose >/= [...] 2022. Calcium 9.3 8.5 - 10.3 mg/dL [facility] Bilirubin, total 0.5 0.1 - 1.2 mg/dL [facility] Protein, pl 6.8 6.5 - 8.5 g/dL [facility] Albumin 3.6 3.5 - 5.0 g/dL [facility] Alk phos 353(H) 40 - 130 Units/L [facility] ALT 12 7 - 55 Units/L [facility] AST 21 10 - 50 Units/L [facility] Blood 07/17/2024 7:58 AM CONSULTANT IN ERGONOMICS AND SAFETY 07/17/2024 8:07 AM CONSULTANT IN ERGONOMICS AND SAFETY us Devon Carlin MD LAB BLOOD ORDERABLES Fin al Result [facility] Department [place] [address] * eGFR (07/03/2024 7:25 AM CONSULTANT IN ERGONOMICS AND SAFETY) eGFR 60 >=60 mL/min/1. 73 m2 Comment: [...] last reviewed 2021. Blood 07/03/2024 7:25 AM CONSULTANT IN ERGONOMICS AND SAFETY 07/03/2024 7:27 AM CONSULTANT IN ERGONOMICS AND SAFETY us Devon Carlin MD LAB BLOOD ORDERABLES Fin al Result [facility] [place] [address] * (ABNORMAL) Comprehensive metabolic panel (07/03/2024 7:25 AM CONSULTANT IN ERGONOMICS AND SAFETY) Sodium 137 135 - 145 mmol/L Potassium, pl 4.7 3.3 - 4.9 mmol/L [facility] Chloride 103 97 - 110 mmol/L [facility] CO2 28 22 - 32 mmol/L [facility] Anion gap 6 2 - 15 mmol/L [facility] BUN 22 6 - 25 mg/dL [facility] Creatinine 1.22 0.80 - 1.30 mg/dL [facility] Glucose 129 70 - 199 mg/dL [facility] Comment: Interpretive Data Fasting glucose >/= [...] Calcium 9.5 8.5 - 10.3 mg/dL CERNER [facility] Bilirubin, total 0.3 0.1 - 1.2 mg/dL CERNER [facility] Protein, pl 6.5 6.5 - 8.5 g/dL CERNER [facility]J Albumin 3.6 3.5 - 5.0 g/dL CERNER [facility] Alk phos 443(H) 40 - 130 Units/L CERNER [facility] ALT 18 7 - 55 Units/L C[facility]ER [facility] AST 25 10 - 50 Units/L CERNER [facility] Blood 07/03/2024 7:25 AM CONSULTANT IN ERGONOMICS AND SAFETY 07/03/2024 7:27 AM CONSULTANT IN ERGONOMICS AND SAFETY us Devon Carlin MD LAB BLOOD ORDERABLES Fin al Result [facility] [place] [address] * (ABNORMAL) CBC with auto differential (07/03/2024 7:23 AM CONSULTANT IN ERGONOMICS AND SAFETY) WBC 8.0 3.8 - 9.9 K/cumm Comment:Testing performed by : [facility], [address] [place] [phone] Hgb 9.6(L) 13.0 - 17.5 g/dL CERGENE [facility] Comment:Testing performed by : [facility], [address] [place] [phone] Hct 29.9(L) 38.9 - 50.3 % CERGENE [facility] Comment:Testing performed by : [facility], [address] [place] [phone] Plt 384 150 - 400 K/cumm CERGENE [facility] Comment:Testing performed by : [facility], [address] [place] [phone] MPV 7.2 6.8 - 10.4 fL CERGENE BJ Comment:Testing performed by : [facility], [address] [place] [address] RBC 3.33(L) 4.30 - 5.80 M/cumm NERY HUSAIN Comment:Testing performed by : [facility], [address] [place] [address] MCV 89.7 81.3 - 96.4 fL CERGENE [facility] Comment:Testing performed by : [facility], [address] [place], [place] [phone] MCH 28.9 27.1 - 33.3 pg CERGENE [facility] Comment:Testing performed by : [facility], [address] [place] [address] MCHC 32.2(L) 32.3 - 35.7 g/dL CERGENE [facility] Comment:Testing performed by : [facility], [address] [place] [address] RDW CV 18.4(H) 11.1 - 14.9 % [facility] Comment:Testing performed by : [facility], [address] [place] [address] NRBC abs 0.00 0.00 - 0.01 K/cumm NERY [facility] Comment:Testing performed by : [facility], [address] [place] [address] Blood 07/03/2024 7:23 AM CONSULTANT IN ERGONOMICS AND SAFETY 07/03/2024 7:27 AM CONSULTANT IN ERGONOMICS AND SAFETY us Devon Carlin MD LAB BLOOD ORDERABLES Fin al Result [facility] Department of Laboratories [place], [place] [id number] * (ABNORMAL) Manual Differential (07/03/2024 7:23 AM CONSULTANT IN ERGONOMICS AND SAFETY) Cells Counted 199 Comment:Testing performed by : [facility], [address] [place] [address] Neutrophil abs 6.1 1.5 - 6.5 K/cumm [facility] Comment:Testing performed by : [facility], [address] [place] [phone] Lymphocyte abs 1.0 0.8 - 3.3 K/cumm [facility] Comment:Testing performed by : [facility], [address] [place] [phone] Monocyte abs 0.2 0.2 - 0.8 K/cumm [facility] Comment:Testing performed by : [facility], [address] [place] [phone] Eosinophil abs 0.5 0.0 - 0.5 K/cumm [facility] Comment:Testing performed by : [facility], [address] [place] [phone] Basophil abs 0.1 0.0 - 0.1 K/cumm [facility] Comment:Testing performed by : [facility], [address] [place] [phone] Neutrophil pct 76.0 % [facility] Comment: Interpretive Data Percent cell count reference ranges are not reported, since discordance with absolute values may lead to misinterpretation of CBC data. Current Interpretive Data was last revised on 2017. Testing performed by: [facility], [address] [place] [phone] Lymphocyte pct 12.0 % [facility] Comment: Interpretive Data Percent cell count reference ranges are not reported, since discordance with absolute values may lead to misinterpretation of CBC data. Current Interpretive Data was last revised on 2017. Testing performed by: [facility], [address] [place] [phone] Monocyte pct 2.0 % [facility] Comment: Interpretive Data Percent cell count reference ranges are not reported, since discordance with absolute values may lead to misinterpretation of CBC data. Current Interpretive Data was last revised on 2017. Testing performed by: [facility], [address] [place] [phone] Eosinophil pct 6.0 % [facility] Comment: Interpretive Data Percent cell count reference ranges are not reported, since discordance with absolute values may lead to misinterpretation of CBC data. Current Interpretive Data was last revised on 2017. Testing performed by: [facility], [address] [place], [place] [phone] Basophil pct 1.0 % CERNER [facility]J Comment: Interpretive Data Percent cell count reference ranges are not reported, since discordance with absolute values may lead to misinterpretation of CBC data. Current Interpretive Data was last revised on 2017. Testing performed by: [facility], [address] [place], [place] [phone] Metamyelocyte pct 3.0 % CERNER BJ Comment:Testing performed by : [facility], [address] [place], [place] [phone] Myelocyte pct 1.0 % CERNER BJ Comment:Testing performed by : [facility], [address] [place], [place] [phone] RBC morphology NRBCs present(A) CERNER BJ Comment:Testing performed by : [facility], [address] [place] [phone] Polychromasia 1+(A) CERNER BJ Comment:Testing performed by : [facility], [address] [place] [phone] Anisocytosis 1+(A) CERNER BJ Comment:Testing performed by : [facility], [address] [place], [place] [phone] Microcytes 1+(A) CERNER BJ Comment:Testing performed by : [facility], [address] [place], [place] [phone] Macrocytes 1+(A) CERNER BJ Comment:Testing performed by : [facility], [address] [place], [place] [phone] Platelet estimate Adequate CERNER BJ Comment:Testing performed by : [facility], [address] [place] [phone] Blood 07/03/2024 7:23 AM CONSULTANT IN ERGONOMICS AND SAFETY 07/03/2024 7:27 AM CONSULTANT IN ERGONOMICS AND SAFETY us Devon Carlin MD LAB BLOOD ORDERABLES Fin al Result Performing Organization Address City/[facility] Co de Phone Number [facility] [place] [address] * eGFR (06/26/2024 7:50 AM CONSULTANT IN ERGONOMICS AND SAFETY) eGFR 67 >=60 mL/min/1. 73 m2 Comment: [...] last reviewed 2021. Blood 06/26/2024 7:50 AM CONSULTANT IN ERGONOMICS AND SAFETY 06/26/2024 7:57 AM CONSULTANT IN ERGONOMICS AND SAFETY Devon Carlin MD LAB BLOOD ORDERABLES Fin al Result Performing Organization Address [facility] Co de Phone Number NERY HUSAIN [facility] [place] [address] * Differential, auto (06/26/2024 7:50 AM CONSULTANT IN ERGONOMICS AND SAFETY) Neutrophil abs 5.5 1.5 - 6.5 K/cumm Comment:Testing performed by : [facility], [address] [place] [phone] Lymphocyte abs 1.7 0.8 - 3.3 K/cumm NERY [facility] Comment:Testing performed by : [facility], [address] [place] [phone] Monocyte abs 0.4 0.2 - 0.8 K/cumm [facility] Comment:Testing performed by : [facility], [address] [place] [phone] Eosinophil abs 0.1 0.0 - 0.5 K/cumm [facility] Comment:Testing performed by : [facility], [facility] [place] [address] Basophil abs 0.1 0.0 - 0.1 K/cumm [facility] Comment:Testing performed by : [facility], [address] [place] [phone] Neutrophil pct 70.1 % [facility] Comment: Interpretive Data Percent cell count reference ranges are not reported, since discordance with absolute values may lead to misinterpretation of CBC data. Current Interpretive Data was last revised on 2017. Testing performed by: [facility], [address] [place] [phone] Lymphocyte pct 22.1 % [facility] Comment: Interpretive Data Percent cell count reference ranges are not reported, since discordance with absolute values may lead to misinterpretation of CBC data. Current Interpretive Data was last revised on 2017. Testing performed by: [facility], [address] [place] [phone] Monocyte pct 5.3 % [facility] Comment: Interpretive Data Percent cell count reference ranges are not reported, since discordance with absolute values may lead to misinterpretation of CBC data. Current Interpretive Data was last revised on 2017. Testing performed by: [facility], [facility] [place] [address] Eosinophil pct 1.3 % [facility] Comment: Interpretive Data Percent cell count reference ranges are not reported, since discordance with absolute values may lead to misinterpretation of CBC data. Current Interpretive Data was last revised on 2017. Testing performed by: [facility], [address] [place] [phone] Basophil pct 1.2 % [facility] Comment: Interpretive Data Percent cell count reference ranges are not reported, since discordance with absolute values may lead to misinterpretation of CBC data. Current Interpretive Data was last revised on 2017. Testing performed by: [facility], [address] [place] [address] Blood 06/26/2024 7:50 AM CONSULTANT IN ERGONOMICS AND SAFETY 06/26/2024 7:52 AM CONSULTANT IN ERGONOMICS AND SAFETY us Devon Carlin MD LAB BLOOD ORDERABLES Fin al Result NERY [facility] [place] [address] * (ABNORMAL) CBC with auto differential (06/26/2024 7:50 AM CONSULTANT IN ERGONOMICS AND SAFETY) WBC 7.9 3.8 - 9.9 K/cumm Comment:Testing performed by : [facility], [address] [place] [address] Hgb 10.3(L) 13.0 - 17.5 g/dL CERNER BJ Comment:Testing performed by : [facility], [address] [place] [address] Hct 32.8(L) 38.9 - 50.3 % CERNER BJ Comment:Testing performed by : [facility], [address] [place] [address] Plt 447(H) 150 - 400 K/cumm CERNER BJ Comment:Testing performed by : [facility], [address] [place] [address] MPV 6.7(L) 6.8 - 10.4 fL CERNER BJ Comment:Testing performed by : [facility], [address] [place] [address] RBC 3.59(L) 4.30 - 5.80 M/cumm CERGENE BJ Comment:Testing performed by : [facility], [address] [place] [address] MCV 91.4 81.3 - 96.4 fL CERNER BJ Comment:Testing performed by : [facility], [address] [place], [place] [phone] MCH 28.7 27.1 - 33.3 pg [facility] Comment:Testing performed by : [facility], [address] [place], [place] [phone] MCHC 31.3(L) 32.3 - 35.7 g/dL N[facility] Comment:Testing performed by : [facility], [address] [place], [place] [phone] RDW CV 18.4(H) 11.1 - 14.9 % NERY [facility] Comment:Testing performed by : [facility], [address] [place], [place] [phone] NRBC abs 0.00 0.00 - 0.01 K/cumm NERY [facility] Comment:Testing performed by : [facility], [address] [place], [place] [phone] Blood 06/26/2024 7:50 AM CONSULTANT IN ERGONOMICS AND SAFETY 06/26/2024 7:52 AM CONSULTANT IN ERGONOMICS AND SAFETY Devon Carlin MD LAB BLOOD ORDERABLES Fin al Result [facility] [place] [address] * (ABNORMAL) Total testosterone (06/26/2024 7:50 AM CONSULTANT IN ERGONOMICS AND SAFETY) Testosterone <5.0(L) 193.0 - 740.0 ng/dL Blood 06/26/2024 7:50 AM CONSULTANT IN ERGONOMICS AND SAFETY 06/26/2024 8:33 AM CONSULTANT IN ERGONOMICS AND SAFETY Devon Carlin MD LAB BLOOD ORDERABLES Fin al Result [facility] Department [place] [address] * (ABNORMAL) PSA diagnostic (06/26/2024 7:50 AM CONSULTANT IN ERGONOMICS AND SAFETY) Pathologist [facility] PSA-Total 129.00(H) <=6.20 ng/mL Comment: Interpretive Data [...] last revised 21. Blood 06/26/2024 7:50 AM CONSULTANT IN ERGONOMICS AND SAFETY 06/26/2024 7:57 AM CONSULTANT IN ERGONOMICS AND SAFETY us Devon Carlin MD LAB BLOOD ORDERABLES Fin al Result [facility] Department [place] [address] * (ABNORMAL) Comprehensive metabolic panel (06/26/2024 7:50 AM CONSULTANT IN ERGONOMICS AND SAFETY) [facility] Sodium 141 135 - 145 mmol/L Potassium, pl 5.1(H) 3.3 - 4.9 mmol/L [facility] Chloride 105 97 - 110 mmol/L [facility] CO2 28 22 - 32 mmol/L [facility] Anion gap 8 2 - 15 mmol/L [facility] BUN 19 6 - 25 mg/dL [facility] Creatinine 1.12 0.80 - 1.30 mg/dL [facility] Glucose 154 70 - 199 mg/dL [facility] Comment: Interpretive Data Fasting glucose >/= [...] 2022. Calcium 9.7 8.5 - 10.3 mg/dL [facility] Bilirubin, total 0.4 0.1 - 1.2 mg/dL [facility] Protein, pl 7.2 6.5 - 8.5 g/dL [facility] Albumin 3.9 3.5 - 5.0 g/dL [facility] Alk phos 535(H) 40 - 130 Units/L [facility] ALT 16 7 - 55 Units/L [facility] AST 23 10 - 50 Units/L [facility] Blood 06/26/2024 7:50 AM CONSULTANT IN ERGONOMICS AND SAFETY 06/26/2024 7:57 AM CONSULTANT IN ERGONOMICS AND SAFETY Devon Carlin MD LAB BLOOD ORDERABLES Fin al Result [facility] Department [place] [address] * eGFR (06/12/2024 8:20 AM CONSULTANT IN ERGONOMICS AND SAFETY) eGFR 72 >=60 mL/min/1. 73 m2 Comment: [...] last reviewed 2021. Blood 06/12/2024 8:20 AM CONSULTANT IN ERGONOMICS AND SAFETY 06/12/2024 8:28 AM CONSULTANT IN ERGONOMICS AND SAFETY us Devon Carlin MD LAB BLOOD ORDERABLES Fin al Result [facility] Department [place] [address] * (ABNORMAL) Comprehensive metabolic panel (06/12/2024 8:20 AM CONSULTANT IN ERGONOMICS AND SAFETY) Sodium 137 135 - 145 mmol/L Potassium, pl 4.6 3.3 - 4.9 mmol/L [facility] Chloride 102 97 - 110 mmol/L [facility] CO2 28 22 - 32 mmol/L [facility] Anion gap 7 2 - 15 mmol/L [facility] BUN 20 6 - 25 mg/dL [facility] Creatinine 1.05 0.80 - 1.30 mg/dL [facility] Glucose 140 70 - 199 mg/dL [facility] Comment: Interpretive Data Fasting glucose >/= [...] 2022. Calcium 9.5 8.5 - 10.3 mg/dL [facility] Bilirubin, total 0.3 0.1 - 1.2 mg/dL [facility] Protein, pl 6.8 6.5 - 8.5 g/dL [facility] Albumin 3.7 3.5 - 5.0 g/dL [facility] Alk phos 572(H) 40 - 130 Units/L [facility] ALT 21 7 - 55 Units/L [facility] AST 27 10 - 50 Units/L [facility] Blood 06/12/2024 8:20 AM CONSULTANT IN ERGONOMICS AND SAFETY 06/12/2024 8:28 AM CONSULTANT IN ERGONOMICS AND SAFETY Narrative [facility] - 06/12/2024 8:59 AM CONSULTANT IN ERGONOMICS AND SAFETY Has the patient fasted?->No us Devon Carlin MD LAB BLOOD ORDERABLES Fin al [facility] Department [place] [address] * Differential, auto (06/12/2024 7:24 AM CONSULTANT IN ERGONOMICS AND SAFETY) Neutrophil abs 5.3 1.5 - 6.5 K/cumm Comment:Testing performed by : [facility], [address] [place] [phone] Lymphocyte abs 2.2 0.8 - 3.3 K/cumm CERNER BJ Comment:Testing performed by : [facility], [address] [place], [place] [phone] Monocyte abs 0.4 0.2 - 0.8 K/cumm CERNER BJ Comment:Testing performed by : [facility], [address] [place], [place] [phone] Eosinophil abs 0.5 0.0 - 0.5 K/cumm CERNER BJ Comment:Testing performed by : [facility], [address] [place] [phone] Basophil abs 0.1 0.0 - 0.1 K/cumm CERNER [facility]J Comment:Testing performed by : [facility], [address] [place] [phone] Neutrophil pct 61.8 % C[facility]ER [facility] Comment: Interpretive Data Percent cell count reference ranges are not reported, since discordance with absolute values may lead to misinterpretation of CBC data. Current Interpretive Data was last revised on 2017. Testing performed by: [facility], [address] [place] [phone] Lymphocyte pct 25.8 % C[facility]ER [facility]J Comment: Interpretive Data Percent cell count reference ranges are not reported, since discordance with absolute values may lead to misinterpretation of CBC data. Current Interpretive Data was last revised on 2017. Testing performed by: [facility], [address] [place], [place] [phone] Monocyte pct 4.9 % NERY HUSAIN Comment: Interpretive Data Percent cell count reference ranges are not reported, since discordance with absolute values may lead to misinterpretation of CBC data. Current Interpretive Data was last revised on 2017. Testing performed by: [facility], [address] [place] [phone] Eosinophil pct 6.1 % NERY HUSAIN Comment: Interpretive Data Percent cell count reference ranges are not reported, since discordance with absolute values may lead to misinterpretation of CBC data. Current Interpretive Data was last revised on 2017. Testing performed by: [facility], [address] [place] [phone] Basophil pct 1.4 % NERY HUSAIN Comment: Interpretive Data Percent cell count reference ranges are not reported, since discordance with absolute values may lead to misinterpretation of CBC data. Current Interpretive Data was last revised on 2017. Testing performed by: [facility], [address] [place] [phone] Blood 06/12/2024 7:24 AM CONSULTANT IN ERGONOMICS AND SAFETY 06/12/2024 7:28 AM CONSULTANT IN ERGONOMICS AND SAFETY us Dveon Carlin MD LAB BLOOD ORDERABLES Fin al Result [facility]ERY [facility] [place] [address] * (ABNORMAL) CBC with auto differential (06/12/2024 7:24 AM CONSULTANT IN ERGONOMICS AND SAFETY) WBC 8.6 3.8 - 9.9 K/cumm Comment:Testing performed by : [facility], [address] [place] [phone] Hgb 9.3(L) 13.0 - 17.5 g/dL NERY HUSAIN Comment:Testing performed by : [facility], [address] [place] [phone] Hct 28.8(L) 38.9 - 50.3 % NERY HUSAIN Comment:Testing performed by : [facility], [address] [place] [address] Plt 358 150 - 400 K/cumm CERGENE BJ Comment:Testing performed by : [facility], [address] [place] [address] MPV 7.0 6.8 - 10.4 fL CERGENE BJ Comment:Testing performed by : [facility], [address] [place] [address] RBC 3.12(L) 4.30 - 5.80 M/cumm CERNER BJ Comment:Testing performed by : [facility], [address] [place] [address] MCV 92.2 81.3 - 96.4 fL CERGENE BJ Comment:Testing performed by : [facility], [address] [place] [address] MCH 29.9 27.1 - 33.3 pg CERGENE BJ Comment:Testing performed by : [facility], [address] [place] [address] MCHC 32.4 32.3 - 35.7 g/dL [facility]ER [facility]J Comment:Testing performed by : [facility], [address] [place] [address] RDW CV 18.4(H) 11.1 - 14.9 % CERGENE BJ Comment:Testing performed by : [facility], [address] [place] [address] NRBC abs 0.00 0.00 - 0.01 K/cumm CERGENE BJ Comment:Testing performed by : [facility], [address] [place] [address] Blood 06/12/2024 7:24 AM CONSULTANT IN ERGONOMICS AND SAFETY 06/12/2024 7:28 AM CONSULTANT IN ERGONOMICS AND SAFETY us Devon Carlin MD LAB BLOOD ORDERABLES Fin al Result NERY [facility] Department [place] [address] * (ABNORMAL) eGFR (06/05/2024 8:47 AM CONSULTANT IN ERGONOMICS AND SAFETY) [facility] eGFR 55(L) >=60 mL/min/1. 73 m2 Comment: [...] last reviewed 2021. Blood 06/05/2024 8:47 AM CONSULTANT IN ERGONOMICS AND SAFETY 06/05/2024 8:58 AM CONSULTANT IN ERGONOMICS AND SAFETY us Devon Carlin MD LAB BLOOD ORDERABLES Fin al Result [facility] [place] [address] * Differential, auto (06/05/2024 8:47 AM CONSULTANT IN ERGONOMICS AND SAFETY) [facility] Neutrophil abs 4.8 1.5 - 6.5 K/cumm Comment:Testing performed by : [facility], [address] [place] [phone] Lymphocyte abs 1.5 0.8 - 3.3 K/cumm NERY HUSAIN Comment:Testing performed by : [facility], [address] [place] [phone] Monocyte abs 0.6 0.2 - 0.8 K/cumm NERY HUSAIN Comment:Testing performed by : [facility], [address] [place] [phone] Eosinophil abs 0.2 0.0 - 0.5 K/cumm [facility] Comment:Testing performed by : [facility], [address] [place] [phone] Basophil abs 0.1 0.0 - 0.1 K/cumm [facility] Comment:Testing performed by : [facility], [address] [place] [phone] Neutrophil pct 66.8 % [facility] Comment: Interpretive Data Percent cell count reference ranges are not reported, since discordance with absolute values may lead to misinterpretation of CBC data. Current Interpretive Data was last revised on 2017. Testing performed by: [facility], [address] [place] [phone] Lymphocyte pct 21.0 % [facility] Comment: Interpretive Data Percent cell count reference ranges are not reported, since discordance with absolute values may lead to misinterpretation of CBC data. Current Interpretive Data was last revised on 2017. Testing performed by: [facility], [address] [place] [phone] Monocyte pct 8.4 % CERNER BJ Comment: Interpretive Data Percent cell count reference ranges are not reported, since discordance with absolute values may lead to misinterpretation of CBC data. Current Interpretive Data was last revised on 2017. Testing performed by: [facility], [address] [place] [phone] Eosinophil pct 2.4 % [facility] Comment: Interpretive Data Percent cell count reference ranges are not reported, since discordance with absolute values may lead to misinterpretation of CBC data. Current Interpretive Data was last revised on 2017. Testing performed by: [facility], [address] [place] [phone] Basophil pct 1.4 % [facility] Comment: Interpretive Data Percent cell count reference ranges are not reported, since discordance with absolute values may lead to misinterpretation of CBC data. Current Interpretive Data was last revised on 2017. Testing performed by: [facility], [address] [place] [address] Blood 06/05/2024 8:47 AM CONSULTANT IN ERGONOMICS AND SAFETY 06/05/2024 8:48 AM CONSULTANT IN ERGONOMICS AND SAFETY us Devon Carlin MD LAB BLOOD ORDERABLES Fin al Result [facility] [place] [address] * (ABNORMAL) CBC with auto differential (06/05/2024 8:47 AM CONSULTANT IN ERGONOMICS AND SAFETY) WBC 7.2 3.8 - 9.9 K/cumm Comment:Testing performed by : [facility], [address] [place] [address] Hgb 9.7(L) 13.0 - 17.5 g/dL CERGENE HUSAIN Comment:Testing performed by : [facility], [address] [place] [address] Hct 30.3(L) 38.9 - 50.3 % CERGENE BJ Comment:Testing performed by : [facility], [address] [place] [address] Plt 398 150 - 400 K/cumm CERGENE HUSAIN Comment:Testing performed by : [facility], [address] [place] [address] MPV 6.5(L) 6.8 - 10.4 fL CERGENE BJ Comment:Testing performed by : [facility], [address] [place] [address] RBC 3.27(L) 4.30 - 5.80 M/cumm CERGENE BJ Comment:Testing performed by : [facility], [address] [place] [address] MCV 92.6 81.3 - 96.4 fL CERGENE BJ Comment:Testing performed by : [facility], [address] [place] [address] MCH 29.7 27.1 - 33.3 pg [facility]ERGENE [facility] Comment:Testing performed by : [facility], [address] [place] [phone] MCHC 32.1(L) 32.3 - 35.7 g/dL NERY [facility] Comment:Testing performed by : [facility], [address] [place], [place] [phone] RDW CV 18.4(H) 11.1 - 14.9 % NERY [facility] Comment:Testing performed by : [facility], [address] [place] [phone] NRBC abs 0.00 0.00 - 0.01 K/cumm NERY [facility] Comment:Testing performed by : [facility], [address] [place] [phone] Blood 06/05/2024 8:47 AM CONSULTANT IN ERGONOMICS AND SAFETY 06/05/2024 8:48 AM CONSULTANT IN ERGONOMICS AND SAFETY Devon Carlin MD LAB BLOOD ORDERABLES Fin al Result Performing Organization Address City/[facility] Co de Phone Number [facility] [place] [place] [address] * (ABNORMAL) Total testosterone (06/05/2024 8:47 AM CONSULTANT IN ERGONOMICS AND SAFETY) Testosterone <5.0(L) 193.0 - 740.0 ng/dL Blood 06/05/2024 8:47 AM CONSULTANT IN ERGONOMICS AND SAFETY 06/05/2024 9:17 AM CONSULTANT IN ERGONOMICS AND SAFETY Devon Carlin MD LAB BLOOD ORDERABLES Fin al Result Performing Organization Address City/State/[facility] Co de Phone Number [facility] [place] [place] [address] * (ABNORMAL) PSA diagnostic (06/05/2024 8:47 AM CONSULTANT IN ERGONOMICS AND SAFETY) PSA-Total 141.00(H) <=6.20 ng/mL Comment: Interpretive Data [...] last revised 21. Blood 06/05/2024 8:47 AM CONSULTANT IN ERGONOMICS AND SAFETY 06/05/2024 8:58 AM CONSULTANT IN ERGONOMICS AND SAFETY us Devon Carlin MD LAB BLOOD ORDERABLES Fin al Result [facility] [place] [address] * (ABNORMAL) Comprehensive metabolic panel (06/05/2024 8:47 AM CONSULTANT IN ERGONOMICS AND SAFETY) Sodium 140 135 - 145 mmol/L Potassium, pl 4.3 3.3 - 4.9 mmol/L [facility] Chloride 103 97 - 110 mmol/L [facility] CO2 27 22 - 32 mmol/L [facility] Anion gap 10 2 - 15 mmol/L [facility] BUN 21 6 - 25 mg/dL [facility] Creatinine 1.32(H) 0.80 - 1.30 mg/dL [facility] Glucose 125 70 - 199 mg/dL [facility] Comment: Interpretive Data Fasting glucose >/= [...] 2022. Calcium 9.4 8.5 - 10.3 mg/dL [facility] Bilirubin, total 0.3 0.1 - 1.2 mg/dL [facility] Protein, pl 6.7 6.5 - 8.5 g/dL [facility] Albumin 3.8 3.5 - 5.0 g/dL CERNER [facility] Alk phos 664(H) 40 - 130 Units/L [facility] ALT 16 7 - 55 Units/L [facility] AST 22 10 - 50 Units/L C[facility]ER [facility] Blood 06/05/2024 8:47 AM CONSULTANT IN ERGONOMICS AND SAFETY 06/05/2024 8:58 AM CONSULTANT IN ERGONOMICS AND SAFETY us Devon Carlin MD LAB BLOOD ORDERABLES Fin al Result [facility] [place] [address] from Last 3 [place] [address] MEDICARE MEDICARE Advance Directives For more information, please contact: [phone] Documents on File Type Date 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 Advance Directives and Livin g Will 12/27/2023 11:23 AM * Full Code (Latest Code Status on File) Date Activated Date Inactivated Comments 01/17/2024 10:18 PM 01/19/2024 6:34 PM * Full Code Date Activated Date Inactivated Comments 12/18/2023 11:47 PM 12/21/2023 7:08 PM Care Teams Inspector Materials And Processes Relationship Specialty Start Date End Date Saw Ga MD [address] [address] PCP - General 10/20/16 Devon Carlin MD [address] [facility]COL[facility], [address] [place] [address] Medical Oncology 12/21/23
--- OUTSIDE RECORDS SUMMARY | 2024-08-31 18:59 | XMS_ITS | Clinical Summary ---
Author Organization [facility] [address] Address [address] [place] [address] Care Team Providers Care Exchange Clerk Name Role Phone Saw Ga MD Primary Care Provider [phone] Devon Carlin MD Unavailable [phone] Allergies Active Allergy Reactions Criticality Noted Date [...] Plan (12/21/2023 12:21 PM CDT): Follows with [facility] oncology for prostate cancer, initially diagnosed [...] outpatient follow-up with the oncologist here at [facility]. Oncology to arrange follow-up at discharge [...] plans. 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 This patient was staffed with Dr. Avendano The patient should be seen in clinic in 4-6 weeks with a non-contrast head CT. 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 Dr Escamilla aware (11/21) plan for watchman in the future Osteoarthritis Overview (01/10/2024): Osteoarthritis Encounters Date Type Department Care Team Description 08/29/2024 Orders Only [facility] Oncology [address] [place] [address] Devon Carlin MD 08/28/2024 9:30 AM FIGHTING VEHICLE SYSTEMS MAINTAINER Infusion [facility] - Infusion [address] [place] [address] Floor 5 [place] [address] Prostate cancer (HCC) (Primary Dx); Metastasis to bone (CMS/HCC) (HCC) 08/28/2024 8:30 AM FIGHTING VEHICLE SYSTEMS MAINTAINER Office Visit [facility] Oncology [address] [place] [address] Floor 5 [place] [address] Devon Carlin MD Prostate cancer (HCC) (Primary Dx); Metastasis to bone (CMS/HCC) (HCC) 08/28/2024 7:30 AM FIGHTING VEHICLE SYSTEMS MAINTAINER Lab [facility] - Lab Collection [facility] Floor 5 [place] [address] Metastasis to bone (CMS/HCC) (HCC); Prostate cancer (HCC) 08/06/2024 Telephone [facility] Oncology [address] [facility] Floor 5 [place] [address] Devendra Jane RN 07/28/2024 Telephone [facility] Neurosurgery [address] [facility] 6th [place] [address] [place] [address] Belkis Hoang PA 07/25/2024 8:15 AM FIGHTING VEHICLE SYSTEMS MAINTAINER Infusion [facility] - Infusion [address] Floor 5 [place] [address] Metastasis to bone (CMS/HCC) (HCC); Prostate cancer (HCC) 07/25/2024 8:00 AM FIGHTING VEHICLE SYSTEMS MAINTAINER Infusion [facility] - Infusion [address] Floor 5 [place] [address] Prostate cancer (HCC) (Primary Dx); Metastasis to bone (CMS/HCC) (HCC) 07/25/2024 7:15 AM FIGHTING VEHICLE SYSTEMS MAINTAINER Lab [facility] - Lab Collection [address] [facility] Floor 5 [place] [address] Metastasis to bone (CMS/HCC) (HCC); Prostate cancer (HCC) 07/21/2024 Orders Only [facility] Oncology [address] [place] [phone] Devon Carlin MD 07/21/2024 Orders Only [facility] Oncology [address] [place] [phone] Devon Carlin MD 07/17/2024 9:00 AM FIGHTING VEHICLE SYSTEMS MAINTAINER Infusion [facility] - Infusion [address] Floor 5 [place] [address] Prostate cancer (HCC) (Primary Dx); Metastasis to bone (CMS/HCC) (HCC) 07/17/2024 8:45 AM FIGHTING VEHICLE SYSTEMS MAINTAINER Office Visit [facility] Oncology [address] [facility] Floor 5 [place] [address] Devon Carlin MD Prostate cancer (HCC) (Primary Dx); Metastasis to bone (CMS/HCC) (HCC) 07/17/2024 7:45 AM FIGHTING VEHICLE SYSTEMS MAINTAINER Lab [facility] - Lab Collection [address] Floor 5 [place] [address] Metastasis to bone (CMS/HCC) (HCC); Prostate cancer (HCC) 07/03/2024 7:30 AM FIGHTING VEHICLE SYSTEMS MAINTAINER Infusion [facility] - Infusion [address] Floor 5 [place] [address] Prostate cancer (HCC) (Primary Dx); Metastasis to bone (CMS/HCC) (HCC) 07/03/2024 6:45 AM FIGHTING VEHICLE SYSTEMS MAINTAINER Lab [facility] - Lab Collection [address] Floor 5 [place] [address] Metastasis to bone (CMS/HCC) (HCC); Prostate cancer (HCC) 06/26/2024 9:30 AM FIGHTING VEHICLE SYSTEMS MAINTAINER Infusion [facility] - Infusion [address] Floor 5 [place] [address] Prostate cancer (HCC) (Primary Dx); Metastasis to bone (CMS/HCC) (HCC) 06/26/2024 8:15 AM FIGHTING VEHICLE SYSTEMS MAINTAINER Office Visit [facility] Oncology [address] [facility] Floor 5 [place] [address] Devon Carlin MD Prostate cancer (HCC) (Primary Dx); Metastasis to bone (CMS/HCC) (HCC) 06/26/2024 7:00 AM FIGHTING VEHICLE SYSTEMS MAINTAINER Lab [facility] - Lab Collection [address] Floor 5 [place] [address] Metastasis to bone (CMS/HCC) (HCC); Prostate cancer (HCC) 06/12/2024 8:00 AM FIGHTING VEHICLE SYSTEMS MAINTAINER Infusion [facility] - Infusion [address] Floor 5 [place] [address] Prostate cancer (HCC) (Primary Dx); Metastasis to bone (CMS/HCC) (HCC) 06/12/2024 7:00 AM FIGHTING VEHICLE SYSTEMS MAINTAINER Lab [facility] - Lab Collection [address] Floor 5 [place] [address] Prostate cancer (HCC) (Primary Dx); Metastasis to bone (CMS/HCC) (HCC) 06/05/2024 10:00 AM FIGHTING VEHICLE SYSTEMS MAINTAINER Infusion [facility] - Infusion [address] Floor 6 [place] [address] Prostate cancer (HCC) (Primary Dx); Metastasis to bone (CMS/HCC) (HCC) 06/05/2024 9:00 AM FIGHTING VEHICLE SYSTEMS MAINTAINER Office Visit [facility] Oncology [facility] Floor 5 [place] [address] Devon Carlin MD Prostate cancer (HCC) (Primary Dx); Metastasis to bone (CMS/HCC) (HCC) 06/05/2024 8:00 AM FIGHTING VEHICLE SYSTEMS MAINTAINER Lab [facility] - Lab Collection [address] [facility] Floor 5 [place] [address] Metastasis to bone (CMS/HCC) (HCC); Prostate cancer (HCC) 06/03/2024 Telephone [facility] Oncology [address] [place] [address] Floor 5 [place] [address] Devendra Jane RN 06/03/2024 Orders Only [facility] Oncology [address] [place] [address] 5 [place] [address] Devon Carlin MD Prostate cancer [...] materials from doctor or pharmacy Always 11/27/2023 [facility] Utilities Answer Date Recorded In the past 12 months has e PRX, gas, oil, or water [employer] threatened to shut off services in your [...] often do you attend chur ch or lutheran services? Never 12/20/2023 Do you belong to any clubs o r organizations such as orthodox groups, unions, fraternal or athletic groups, or [...] medical care, and heating? Somewhat hard 12/20/2023 [facility] - Occupational Stress [...] place to sleep or slept in a skilled nursing (including now)? No 11/21/2023 Housing Stability Vital Sign Answer Roman e Recorded In the last 12 months, was t here a time when you were not able to pay the mortgage or rent on time? No 12/20/2023 In the past 12 months, how m any times have you moved where you were living? 1 12/20/2023 At any time in the past 12 m [facility], were you homeless or living in a skilled nursing (including now)? No 12/20/2023 Personal Safety Answer Date Recorded Have you ever been in or are you currently in a harmful physical or emotional relationship or is someone making you feel afraid or unsafe? Denies 03/14/2024 Sex and Gender Information Value Date Recorded Sex Assigned at Not on file Legal Sex Male 4:28 AM FIGHTING VEHICLE SYSTEMS MAINTAINER Gender Identity Not on file Sexual Orientation Not on file Obstetrics History Last Filed Vital Signs Vital Sign Reading Time Taken Comments Blood Pressure 136/55 08/28/2024 7:58 AM FIGHTING VEHICLE SYSTEMS MAINTAINER Pulse 88 08/28/2024 7:58 AM FIGHTING VEHICLE SYSTEMS MAINTAINER Temperature 36.3 C (97.3 F) 08/28/2024 7:58 AM FIGHTING VEHICLE SYSTEMS MAINTAINER Respiratory Rate 18 08/28/2024 7:58 AM FIGHTING VEHICLE SYSTEMS MAINTAINER Oxygen Saturation 92% 08/28/2024 7:58 AM FIGHTING VEHICLE SYSTEMS MAINTAINER Inhaled Oxygen Concentration - - Weight 77.8 kg (171 lb 9.6 oz) 08/28/2024 7:58 A M FIGHTING VEHICLE SYSTEMS MAINTAINER Height 168.9 cm (5' 6.5 ) 08/28/2024 7:58 AM FIGHTING VEHICLE SYSTEMS MAINTAINER Body Mass Index 27.28 08/28/2024 7:58 AM FIGHTING VEHICLE SYSTEMS MAINTAINER Plan of Treatment Health Maintenance Due Date [...] Diagnosis Comments EGFR Routine 08/28/2024 7:48 AM FIGHTING VEHICLE SYSTEMS MAINTAINER Metastasis to bone (CMS/HCC) (HCC) Prostate cancer (HCC) DIFFERENTIAL AUTO Routine 08/28/2024 7:4 8 AM FIGHTING VEHICLE SYSTEMS MAINTAINER Metastasis to bone (CMS/HCC) (HCC) Prostate cancer (HCC) PSA DIAGNOSTIC Routine 08/28/2024 7:48 AM FIGHTING VEHICLE SYSTEMS MAINTAINER Metastasis to bone (CMS/HCC) (HCC) Prostate cancer (HCC) TOTAL TESTOSTERONE Routine 08/28/2024 7: 48 AM FIGHTING VEHICLE SYSTEMS MAINTAINER Metastasis to bone (CMS/HCC) (HCC) Prostate cancer (HCC) CBC WITH AUTO DIFFERENTIAL Routine 08/28/2024 7:48 AM FIGHTING VEHICLE SYSTEMS MAINTAINER Metastasis to bone (CMS/HCC) (HCC) Prostate cancer (HCC) COMPREHENSIVE METABOLIC PANEL Routine 08/28/2024 7:48 AM FIGHTING VEHICLE SYSTEMS MAINTAINER Metastasis to bone (CMS/HCC) (HCC) Prostate cancer (HCC) EGFR Routine 07/25/2024 7:35 AM FIGHTING VEHICLE SYSTEMS MAINTAINER Metastasis to bone (CMS/HCC) (HCC) Prostate cancer (HCC) DIFFERENTIAL AUTO Routine 07/25/2024 7:3 5 AM FIGHTING VEHICLE SYSTEMS MAINTAINER Metastasis to bone (CMS/HCC) (HCC) Prostate cancer (HCC) CBC WITH AUTO DIFFERENTIAL Routine 07/25/2024 7:35 AM FIGHTING VEHICLE SYSTEMS MAINTAINER Metastasis to bone (CMS/HCC) (HCC) Prostate cancer (HCC) COMPREHENSIVE METABOLIC PANEL Routine 07/25/2024 7:35 AM FIGHTING VEHICLE SYSTEMS MAINTAINER Metastasis to bone (CMS/HCC) (HCC) Prostate cancer (HCC) DIFFERENTIAL AUTO Routine 07/17/2024 8:0 5 AM FIGHTING VEHICLE SYSTEMS MAINTAINER Metastasis to bone (CMS/HCC) (HCC) Prostate cancer (HCC) CBC WITH AUTO DIFFERENTIAL Routine 07/17/2024 8:05 AM FIGHTING VEHICLE SYSTEMS MAINTAINER Metastasis to bone (CMS/HCC) (HCC) Prostate cancer (HCC) EGFR Routine 07/17/2024 7:58 AM FIGHTING VEHICLE SYSTEMS MAINTAINER Metastasis to bone (CMS/HCC) (HCC) Prostate cancer (HCC) PSA DIAGNOSTIC Routine 07/17/2024 7:58 AM FIGHTING VEHICLE SYSTEMS MAINTAINER Metastasis to bone (CMS/HCC) (HCC) Prostate cancer (HCC) TOTAL TESTOSTERONE Routine 07/17/2024 7: 58 AM FIGHTING VEHICLE SYSTEMS MAINTAINER Metastasis to bone (CMS/HCC) (HCC) Prostate cancer (HCC) COMPREHENSIVE METABOLIC PANEL Routine 07/17/2024 7:58 AM FIGHTING VEHICLE SYSTEMS MAINTAINER Metastasis to bone (CMS/HCC) (HCC) Prostate cancer (HCC) EGFR Routine 07/03/2024 7:25 AM FIGHTING VEHICLE SYSTEMS MAINTAINER Metastasis to bone (CMS/HCC) (HCC) Prostate cancer (HCC) COMPREHENSIVE METABOLIC PANEL Routine 07/03/2024 7:25 AM FIGHTING VEHICLE SYSTEMS MAINTAINER Metastasis to bone (CMS/HCC) (HCC) Prostate cancer (HCC) MANUAL DIFFERENTIAL Routine 07/03/2024 7 :23 AM FIGHTING VEHICLE SYSTEMS MAINTAINER Metastasis to bone (CMS/HCC) (HCC) Prostate cancer (HCC) CBC WITH AUTO DIFFERENTIAL Routine 07/03/2024 7:23 AM FIGHTING VEHICLE SYSTEMS MAINTAINER Metastasis to bone (CMS/HCC) (HCC) Prostate cancer (HCC) EGFR Routine 06/26/2024 7:50 AM FIGHTING VEHICLE SYSTEMS MAINTAINER Metastasis to bone (CMS/HCC) (HCC) Prostate cancer (HCC) DIFFERENTIAL AUTO Routine 06/26/2024 7:5 0 AM FIGHTING VEHICLE SYSTEMS MAINTAINER Metastasis to bone (CMS/HCC) (HCC) Prostate cancer (HCC) CBC WITH AUTO DIFFERENTIAL Routine 06/26/2024 7:50 AM FIGHTING VEHICLE SYSTEMS MAINTAINER Metastasis to bone (CMS/HCC) (HCC) Prostate cancer (HCC) TOTAL TESTOSTERONE Routine 06/26/2024 7: 50 AM FIGHTING VEHICLE SYSTEMS MAINTAINER Metastasis to bone (CMS/HCC) (HCC) Prostate cancer (HCC) PSA DIAGNOSTIC Routine 06/26/2024 7:50 AM FIGHTING VEHICLE SYSTEMS MAINTAINER Metastasis to bone (CMS/HCC) (HCC) Prostate cancer (HCC) COMPREHENSIVE METABOLIC PANEL Routine 06/26/2024 7:50 AM FIGHTING VEHICLE SYSTEMS MAINTAINER Metastasis to bone (CMS/HCC) (HCC) Prostate cancer (HCC) EGFR STAT 06/12/2024 8:20 AM FIGHTING VEHICLE SYSTEMS MAINTAINER Metastasis to bone (CMS/HCC) (HCC) Prostate cancer (HCC) COMPREHENSIVE METABOLIC PANEL STAT 06/12/2024 8:20 AM FIGHTING VEHICLE SYSTEMS MAINTAINER Metastasis to bone (CMS/HCC) (HCC) Prostate cancer (HCC) DIFFERENTIAL AUTO Routine 06/12/2024 7:2 4 AM FIGHTING VEHICLE SYSTEMS MAINTAINER Metastasis to bone (CMS/HCC) (HCC) Prostate cancer (HCC) CBC WITH AUTO DIFFERENTIAL Routine 06/12/2024 7:24 AM FIGHTING VEHICLE SYSTEMS MAINTAINER Metastasis to bone (CMS/HCC) (HCC) Prostate cancer (HCC) EGFR Routine 06/05/2024 8:47 AM FIGHTING VEHICLE SYSTEMS MAINTAINER Metastasis to bone (CMS/HCC) (HCC) Prostate cancer (HCC) DIFFERENTIAL AUTO Routine 06/05/2024 8:4 7 AM FIGHTING VEHICLE SYSTEMS MAINTAINER Metastasis to bone (CMS/HCC) (HCC) Prostate cancer (HCC) PSA DIAGNOSTIC Routine 06/05/2024 8:47 AM FIGHTING VEHICLE SYSTEMS MAINTAINER Metastasis to bone (CMS/HCC) (HCC) Prostate cancer (HCC) TOTAL TESTOSTERONE Routine 06/05/2024 8: 47 AM FIGHTING VEHICLE SYSTEMS MAINTAINER Metastasis to bone (CMS/HCC) (HCC) Prostate cancer (HCC) CBC WITH AUTO DIFFERENTIAL Routine 06/05/2024 8:47 AM FIGHTING VEHICLE SYSTEMS MAINTAINER Metastasis to bone (CMS/HCC) (HCC) Prostate cancer (HCC) COMPREHENSIVE METABOLIC PANEL Routine 06/05/2024 8:47 AM FIGHTING VEHICLE SYSTEMS MAINTAINER Metastasis to bone (CMS/HCC) (HCC) Prostate cancer (HCC) CT CHEST ABDOMEN PELVIS W CONTRAST Schedule Routine, Read Routine (OP Routine) 2024 7:47 AM CDT Metastasis to bone (CMS/HCC) (HCC) Prostate cancer (HCC) from Last 3 Months or Most Recently Relevant to Health Maintenance Results * eGFR (08/28/2024 7:48 AM FIGHTING VEHICLE SYSTEMS MAINTAINER) eGFR 74 >=60 mL/min/1. 73 m2 Comment: [...] last reviewed 2021. Blood 08/28/2024 7:48 AM FIGHTING VEHICLE SYSTEMS MAINTAINER 08/28/2024 7:58 AM FIGHTING VEHICLE SYSTEMS MAINTAINER us Devon Carlin MD LAB BLOOD ORDERABLES Fin al Result [facility] Department [place] [address] * (ABNORMAL) Differential, auto (08/28/2024 7:48 AM FIGHTING VEHICLE SYSTEMS MAINTAINER) Pathologist [facility] Neutrophil abs 6.6(H) 1.5 - 6.5 K/cumm Comment:Testing performed by : [facility], [address] [place] [phone] Lymphocyte abs 1.5 0.8 - 3.3 K/cumm NERY HUSAIN Comment:Testing performed by : [facility] Heme Lab, [address] [place] [phone] Monocyte abs 0.4 0.2 - 0.8 K/cumm [facility] Comment:Testing performed by : [facility] Heme Lab, [address] [place] [phone] Eosinophil abs 0.0 0.0 - 0.5 K/cumm [facility] Comment:Testing performed by : [facility] Heme Lab, [address] [place] [phone] Basophil abs 0.1 0.0 - 0.1 K/cumm [facility] Comment:Testing performed by : [facility]e Lab, [address] [place] [phone] Neutrophil pct 76.8 % [facility] Comment: Interpretive Data Percent cell count reference ranges are not reported, since discordance with absolute values may lead to misinterpretation of CBC data. Current Interpretive Data was last revised on 2017. Testing performed by: [facility], [address] [place] [phone] Lymphocyte pct 17.0 % [facility] Comment: Interpretive Data Percent cell count reference ranges are not reported, since discordance with absolute values may lead to misinterpretation of CBC data. Current Interpretive Data was last revised on 2017. Testing performed by: [facility], [address] [place] [phone] Monocyte pct 4.9 % [facility] Comment: Interpretive Data Percent cell count reference ranges are not reported, since discordance with absolute values may lead to misinterpretation of CBC data. Current Interpretive Data was last revised on 2017. Testing performed by: [facility]e [facility], [address] [place] [phone] Eosinophil pct 0.4 % [facility] Comment: Interpretive Data Percent cell count reference ranges are not reported, since discordance with absolute values may lead to misinterpretation of CBC data. Current Interpretive Data was last revised on 2017. Testing performed by: [facility], [address] [place] [phone] Basophil pct 0.9 % [facility] Comment: Interpretive Data Percent cell count reference ranges are not reported, since discordance with absolute values may lead to misinterpretation of CBC data. Current Interpretive Data was last revised on 2017. Testing performed by: [facility]e Lab, [address] [place] [address] Blood 08/28/2024 7:48 AM FIGHTING VEHICLE SYSTEMS MAINTAINER 08/28/2024 8:00 AM FIGHTING VEHICLE SYSTEMS MAINTAINER us Devon Carlin MD LAB BLOOD ORDERABLES Fin al Result [facility] Department [place] [address] * (ABNORMAL) CBC with auto differential (08/28/2024 7:48 AM FIGHTING VEHICLE SYSTEMS MAINTAINER) WBC 8.6 3.8 - 9.9 K/cumm Comment:Testing performed by : [facility]e [facility], [address] [place] [address] Hgb 9.5(L) 13.0 - 17.5 g/dL CERNER [facility] Comment:Testing performed by : [facility], [address] [place] [address] Hct 29.4(L) 38.9 - 50.3 % CERNER [facility] Comment:Testing performed by : [facility], [address] [place] [address] Plt 568(H) 150 - 400 K/cumm CERNER [facility] Comment:Testing performed by : [facility], [address] [place] [address] MPV 7.2 6.8 - 10.4 fL CERNER [facility] Comment:Testing performed by : [facility]e [facility], [address] [place] [address] RBC 3.52(L) 4.30 - 5.80 M/cumm CERNER [facility] Comment:Testing performed by : [facility]e Lab, [address] [place] [address] MCV 83.5 81.3 - 96.4 fL CERNER [facility] Comment:Testing performed by : [facility]e Lab, [address] [place], [place] [phone] MCH 27.0(L) 27.1 - 33.3 pg NERY [facility] Comment:Testing performed by : [facility]e [facility], [address] [place], [place] [phone] MCHC 32.4 32.3 - 35.7 g/dL NERY [facility] Comment:Testing performed by : [facility], [address] [place], [place] [phone] RDW CV 19.4(H) 11.1 - 14.9 % CERGENE [facility] Comment:Testing performed by : [facility], [address] [place], [place] [phone] NRBC abs 0.00 0.00 - 0.01 K/cumm NERY [facility] Comment:Testing performed by : [facility] Lab, [address] [place], [place] [phone] Blood 08/28/2024 7:48 AM FIGHTING VEHICLE SYSTEMS MAINTAINER 08/28/2024 8:00 AM FIGHTING VEHICLE SYSTEMS MAINTAINER us Devon Carlin MD LAB BLOOD ORDERABLES Fin al Result Performing Organization Address City/[facility]/ZIP Co de Phone Number [facility] Department [place] [address] * (ABNORMAL) Total testosterone (08/28/2024 7:48 AM FIGHTING VEHICLE SYSTEMS MAINTAINER) Testosterone <5.0(L) 193.0 - 740.0 ng/dL Blood 08/28/2024 7:48 AM FIGHTING VEHICLE SYSTEMS MAINTAINER 08/28/2024 8:20 AM FIGHTING VEHICLE SYSTEMS MAINTAINER us Devon Carlin MD LAB BLOOD ORDERABLES Fin al Result Performing Organization Address City/[facility]/ZIP Co de Phone Number [facility] [place] [address] * (ABNORMAL) PSA diagnostic (08/28/2024 7:48 AM FIGHTING VEHICLE SYSTEMS MAINTAINER) PSA-Total 188.00(H) <=6.20 ng/mL Comment: Interpretive Data [...] last revised 21. Blood 08/28/2024 7:48 AM FIGHTING VEHICLE SYSTEMS MAINTAINER 08/28/2024 7:58 AM FIGHTING VEHICLE SYSTEMS MAINTAINER us Devon Carlin MD LAB BLOOD ORDERABLES Fin al Result [facility] Department [place] [address] * (ABNORMAL) Comprehensive metabolic panel (08/28/2024 7:48 AM FIGHTING VEHICLE SYSTEMS MAINTAINER) Sodium 140 135 - 145 mmol/L Potassium, pl 4.4 3.3 - 4.9 mmol/L [facility] Chloride 100 97 - 110 mmol/L [facility] CO2 29 22 - 32 mmol/L [facility] Anion gap 11 2 - 15 mmol/L [facility] BUN 23 6 - 25 mg/dL [facility] Creatinine 1.03 0.80 - 1.30 mg/dL [facility] Glucose 166 70 - 199 mg/dL [facility] Comment: Interpretive Data Fasting glucose >/= [...] 2022. Calcium 9.7 8.5 - 10.3 mg/dL [facility] Bilirubin, total 0.3 0.1 - 1.2 mg/dL [facility] Protein, pl 7.1 6.5 - 8.5 g/dL [facility] Albumin 3.4(L) 3.5 - 5.0 g/dL [facility] Alk phos 411(H) 40 - 130 Units/L [facility] ALT 38 7 - 55 Units/L [facility] AST 36 10 - 50 Units/L [facility] Blood 08/28/2024 7:48 AM FIGHTING VEHICLE SYSTEMS MAINTAINER 08/28/2024 7:58 AM FIGHTING VEHICLE SYSTEMS MAINTAINER us Devon Carlin MD LAB BLOOD ORDERABLES Fin al Result [facility] Department [place] [address] * eGFR (07/25/2024 7:35 AM FIGHTING VEHICLE SYSTEMS MAINTAINER) eGFR 67 >=60 mL/min/1. 73 m2 Comment: [...] last reviewed 2021. Blood 07/25/2024 7:35 AM FIGHTING VEHICLE SYSTEMS MAINTAINER 07/25/2024 7:40 AM FIGHTING VEHICLE SYSTEMS MAINTAINER us Devon Carlin MD LAB BLOOD ORDERABLES Fin al Result N[facility] Department [place] [address] * (ABNORMAL) Differential, auto (07/25/2024 7:35 AM FIGHTING VEHICLE SYSTEMS MAINTAINER) Neutrophil abs 5.7 1.5 - 6.5 K/cumm Comment:Testing performed by : [facility], [address] [place] [phone] Lymphocyte abs 1.3 0.8 - 3.3 K/cumm CERNER [facility] Comment:Testing performed by : [facility], [address] [place] [phone] Monocyte abs 0.3 0.2 - 0.8 K/cumm CERNER [facility] Comment:Testing performed by : [facility], [address] [place] [phone] Eosinophil abs 0.1 0.0 - 0.5 K/cumm CERNER [facility] Comment:Testing performed by : [facility], [address] [place] [phone] Basophil abs 0.2(H) 0.0 - 0.1 K/cumm CERNER [facility] Comment:Testing performed by : [facility], [address] [place] [phone] Neutrophil pct 75.6 % C[facility]ER [facility] Comment: Interpretive Data Percent cell count reference ranges are not reported, since discordance with absolute values may lead to misinterpretation of CBC data. Current Interpretive Data was last revised on 2017. Testing performed by: [facility], [address] [place] [phone] Lymphocyte pct 16.5 % C[facility]ER [facility] Comment: Interpretive Data Percent cell count reference ranges are not reported, since discordance with absolute values may lead to misinterpretation of CBC data. Current Interpretive Data was last revised on 2017. Testing performed by: [facility], [address] [place] [phone] Monocyte pct 4.2 % CERNER [facility] Comment: Interpretive Data Percent cell count reference ranges are not reported, since discordance with absolute values may lead to misinterpretation of CBC data. Current Interpretive Data was last revised on 2017. Testing performed by: [facility], [address] [place] [phone] Eosinophil pct 1.7 % NERY ARAGON Comment: Interpretive Data Percent cell count reference ranges are not reported, since discordance with absolute values may lead to misinterpretation of CBC data. Current Interpretive Data was last revised on 2017. Testing performed by: [facility], [address] [place] [phone] Basophil pct 2.0 % NERY HUSAIN Comment: Interpretive Data Percent cell count reference ranges are not reported, since discordance with absolute values may lead to misinterpretation of CBC data. Current Interpretive Data was last revised on 2017. Testing performed by: [facility], [address] [place] [phone] Blood 07/25/2024 7:35 AM FIGHTING [employer] MAINTAINER 07/25/2024 7:37 AM FIGHTING VEHICLE SYSTEMS MAINTAINER us Devon Carlin MD LAB BLOOD ORDERABLES Fin al Result NERY ARAGON [facility] Department [place] [address] * (ABNORMAL) CBC with auto differential (07/25/2024 7:35 AM FIGHTING VEH[employer]LE SYSTEMS MAINTAINER) WBC 7.6 3.8 - 9.9 K/cumm Comment:Testing performed by : [facility], [address] [place] [phone] Hgb 9.2(L) 13.0 - 17.5 g/dL NERY ARAGON Comment:Testing performed by : [facility], [address] [place] [address] Hct 28.3(L) 38.9 - 50.3 % NERY ARAGON Comment:Testing performed by : [facility], [address] [place] [address] Plt 448(H) 150 - 400 K/cumm [facility] Comment:Testing performed by : [facility], [address] [place] [address] MPV 6.8 6.8 - 10.4 fL [facility] Comment:Testing performed by : [facility], [address] [place] [address] RBC 3.28(L) 4.30 - 5.80 M/cumm CERGENE [facility] Comment:Testing performed by : [facility], [address] [place] [address] MCV 86.2 81.3 - 96.4 fL [facility] Comment:Testing performed by : [facility], [address] [place] [address] MCH 28.2 27.1 - 33.3 pg [facility] Comment:Testing performed by : [facility], [address] [place] [address] MCHC 32.7 32.3 - 35.7 g/dL [facility] Comment:Testing performed by : [facility], [address] [place] [address] RDW CV 19.3(H) 11.1 - 14.9 % [facility] Comment:Testing performed by : [facility], [address] [place] [address] NRBC abs 0.10(H) 0.00 - 0.01 K/cumm [facility] Comment:Testing performed by : [facility], [address] [place] [address] Blood 07/25/2024 7:35 AM FIGHTING [employer]LE SYSTEMS MAINTAINER 07/25/2024 7:37 AM FIGHTING VEHICLE SYSTEMS MAINTAINER us Devon Carlin MD LAB BLOOD ORDERABLES Fin al Result [facility] Department [place] [address] * (ABNORMAL) Comprehensive metabolic panel (07/25/2024 7:35 AM FIGHTING [employer]LE SYSTEMS MAINTAINER) Pathologist [facility] Sodium 139 135 - 145 mmol/L Potassium, pl 4.4 3.3 - 4.9 mmol/L [facility] Chloride 103 97 - 110 mmol/L [facility] CO2 27 22 - 32 mmol/L [facility] Anion gap 9 2 - 15 mmol/L [facility] BUN 19 6 - 25 mg/dL [facility] Creatinine 1.12 0.80 - 1.30 mg/dL [facility] Glucose 151 70 - 199 mg/dL [facility] Comment: Interpretive Data Fasting glucose >/= [...] 2022. Calcium 9.3 8.5 - 10.3 mg/dL [facility] Bilirubin, total 0.4 0.1 - 1.2 mg/dL [facility] Protein, pl 6.4(L) 6.5 - 8.5 g/dL [facility] Albumin 3.5 3.5 - 5.0 g/dL [facility] Alk phos 350(H) 40 - 130 Units/L [facility] ALT 16 7 - 55 Units/L [facility] AST 21 10 - 50 Units/L [facility] Blood 07/25/2024 7:35 AM FIGHTING [employer]ICLE [employer]S MAINTAINER 07/25/2024 7:40 AM FIGHTING [employer]LE SYSTEMS MAINTAINER us Devon Carlin MD LAB BLOOD ORDERABLES Fin al Result [facility] Department [place] [address] * Differential, auto (07/17/2024 8:05 AM FIGHTING [employer]S MAINTAINER) Pathologist [facility] Neutrophil abs 5.1 1.5 - 6.5 K/cumm Comment:Testing performed by : [facility], [address] [place] [phone] Lymphocyte abs 1.3 0.8 - 3.3 K/cumm [facility] Comment:Testing performed by : [facility], [address] [place] [phone] Monocyte abs 0.4 0.2 - 0.8 K/cumm [facility] Comment:Testing performed by : [facility], [address] [place], [place] [phone] Eosinophil abs 0.0 0.0 - 0.5 K/cumm [facility] Comment:Testing performed by : [facility], [address] [place], [place] [phone] Basophil abs 0.1 0.0 - 0.1 K/cumm [facility] Comment:Testing performed by : [facility], [address] [place], [place] [phone] Neutrophil pct 74.1 % [facility] Comment: Interpretive Data Percent cell count reference ranges are not reported, since discordance with absolute values may lead to misinterpretation of CBC data. Current Interpretive Data was last revised on 2017. Testing performed by: [facility], [address] [place] [phone] Lymphocyte pct 19.1 % [facility] Comment: Interpretive Data Percent cell count reference ranges are not reported, since discordance with absolute values may lead to misinterpretation of CBC data. Current Interpretive Data was last revised on 2017. Testing performed by: [facility], [address] [place] [phone] Monocyte pct 5.6 % [facility] Comment: Interpretive Data Percent cell count reference ranges are not reported, since discordance with absolute values may lead to misinterpretation of CBC data. Current Interpretive Data was last revised on 2017. Testing performed by: [facility], [address] [place] [phone] Eosinophil pct 0.4 % [facility] Comment: Interpretive Data Percent cell count reference ranges are not reported, since discordance with absolute values may lead to misinterpretation of CBC data. Current Interpretive Data was last revised on 2017. Testing performed by: [facility], [address] [place] [address] Basophil pct 0.8 % NERY HUSAIN Comment: Interpretive Data Percent cell count reference ranges are not reported, since discordance with absolute values may lead to misinterpretation of CBC data. Current Interpretive Data was last revised on 2017. Testing performed by: [facility], [address] [place] [address] Blood 07/17/2024 8:05 AM FIGHTING [employer]S MAINTAINER 07/17/2024 8:06 AM FIGHTING [employer]S MAINTAINER us Devon Carlin MD LAB BLOOD ORDERABLES Fin al Result NERY HUSAIN [facility] Department [place] [address] * (ABNORMAL) CBC with auto differential (07/17/2024 8:05 AM FIGHTING [employer] MAINTAINER) WBC 6.9 3.8 - 9.9 K/cumm Comment:Testing performed by : [facility], [address] [place] [address] Hgb 9.8(L) 13.0 - 17.5 g/dL NERY HUSAIN Comment:Testing performed by : [facility], [address] [place] [address] Hct 30.1(L) 38.9 - 50.3 % NERY HUSAIN Comment:Testing performed by : [facility], [address] [place] [address] Plt 441(H) 150 - 400 K/cumm NERY HUSAIN Comment:Testing performed by : [facility], [address] [place] [address] MPV 6.6(L) 6.8 - 10.4 fL NERY HUSAIN Comment:Testing performed by : [facility], [address] [place] [address] RBC 3.45(L) 4.30 - 5.80 M/cumm [facility] Comment:Testing performed by : [facility], [address] [place] [address] MCV 87.2 81.3 - 96.4 fL [facility] Comment:Testing performed by : [facility], [address] [place] [address] MCH 28.4 27.1 - 33.3 pg [facility] Comment:Testing performed by : [facility], [address] [place] [address] MCHC 32.6 32.3 - 35.7 g/dL [facility] Comment:Testing performed by : [facility], [address] [place] [address] RDW CV 18.8(H) 11.1 - 14.9 % [facility] Comment:Testing performed by : [facility], [address] [place] [address] NRBC abs 0.10(H) 0.00 - 0.01 K/cumm [facility] Comment:Testing performed by : [facility], [address] [place] [address] Blood 07/17/2024 8:05 AM FIGHTING [employer]S MAINTAINER 07/17/2024 8:06 AM FIGHTING VEHIC[employer] SYSTEMS MAINTAINER us Devon Carlin MD LAB BLOOD ORDERABLES Fin al Result [facility] Department [place] [address] * eGFR (07/17/2024 7:58 AM FIGHTING [employer]S MAINTAINER) eGFR 63 >=60 mL/min/1. 73 m2 Comment: [...] last reviewed 2021. Blood 07/17/2024 7:58 AM FIGHTING VEHICLE SYSTEMS MAINTAINER 07/17/2024 8:07 AM FIGHTING VEHICLE SYSTEMS MAINTAINER Devon Carlin MD LAB BLOOD ORDERABLES Fin al Result Performing Organization Address [facility] de Phone Number [facility] Department [place] [address] * (ABNORMAL) Total testosterone (07/17/2024 7:58 AM FIGHTING VEHICLE SYSTEMS MAINTAINER) Testosterone <5.0(L) 193.0 - 740.0 ng/dL Blood 07/17/2024 7:58 AM FIGHTING [employer]LE SYSTEMS MAINTAINER 07/17/2024 8:21 AM FIGHTING VEHICLE SYSTEMS MAINTAINER Devon Carlin MD LAB BLOOD ORDERABLES Fin al Result Performing Organization Address [facility] Co de Phone Number [facility] Department [place] [address] * (ABNORMAL) PSA diagnostic (07/17/2024 7:58 AM FIGHTING VEH[employer]LE SYSTEMS MAINTAINER) PSA-Total 132.00(H) <=6.20 ng/mL Comment: Interpretive Data [...] last revised 21. Blood 07/17/2024 7:58 AM FIGHTING VEHICLE SYSTEMS MAINTAINER 07/17/2024 8:07 AM FIGHTING VEHICLE SYSTEMS MAINTAINER us Devon Carlin MD LAB BLOOD ORDERABLES Fin al Result [facility] Department [place] [address] * (ABNORMAL) Comprehensive metabolic panel (07/17/2024 7:58 AM FIGHTING VEHICLE SYSTEMS MAINTAINER) Sodium 142 135 - 145 mmol/L Potassium, pl 3.8 3.3 - 4.9 mmol/L [facility] Chloride 105 97 - 110 mmol/L [facility] CO2 26 22 - 32 mmol/L [facility] Anion gap 11 2 - 15 mmol/L [facility] BUN 19 6 - 25 mg/dL [facility] Creatinine 1.18 0.80 - 1.30 mg/dL [facility] Glucose 184 70 - 199 mg/dL [facility] Comment: Interpretive Data Fasting glucose >/= [...] 2022. Calcium 9.3 8.5 - 10.3 mg/dL [facility] Bilirubin, total 0.5 0.1 - 1.2 mg/dL [facility] Protein, pl 6.8 6.5 - 8.5 g/dL [facility] Albumin 3.6 3.5 - 5.0 g/dL [facility] Alk phos 353(H) 40 - 130 Units/L [facility] ALT 12 7 - 55 Units/L [facility] AST 21 10 - 50 Units/L [facility] Blood 07/17/2024 7:58 AM FIGHTING [employer] SYSTEMS MAINTAINER 07/17/2024 8:07 AM FIGHTING [employer]HIC[employer] SYSTEMS MAINTAINER Devon Carlin MD LAB BLOOD ORDERABLES Fin al Result Performing Organization Address [facility] Co de Phone Number [facility] [place] [place] [address] * eGFR (07/03/2024 7:25 AM FIGHTING [employer] SYSTEMS MAINTAINER) eGFR 60 >=60 mL/min/1. 73 m2 Comment: [...] last reviewed 2021. Blood 07/03/2024 7:25 AM FIGHTING [employer]HICLE SYSTEMS MAINTAINER 07/03/2024 7:27 AM FIGHTING [employer]LE SYSTEMS MAINTAINER Devon Carlin MD LAB BLOOD ORDERABLES Fin al Result Performing Organization Address [facility] Co de Phone Number [facility] Department [place] [address] * (ABNORMAL) Comprehensive metabolic panel (07/03/2024 7:25 AM FIGHTING [employer]LE SYSTEMS MAINTAINER) Pathologist [facility] Sodium 137 135 - 145 mmol/L Potassium, pl 4.7 3.3 - 4.9 mmol/L [facility] Chloride 103 97 - 110 mmol/L [facility] CO2 28 22 - 32 mmol/L [facility] Anion gap 6 2 - 15 mmol/L [facility] BUN 22 6 - 25 mg/dL [facility] Creatinine 1.22 0.80 - 1.30 mg/dL [facility] Glucose 129 70 - 199 mg/dL [facility] Comment: Interpretive Data Fasting glucose >/= [...] 2022. Calcium 9.5 8.5 - 10.3 mg/dL [facility] Bilirubin, total 0.3 0.1 - 1.2 mg/dL [facility] Protein, pl 6.5 6.5 - 8.5 g/dL [facility] Albumin 3.6 3.5 - 5.0 g/dL [facility] Alk phos 443(H) 40 - 130 Units/L [facility] ALT 18 7 - 55 Units/L [facility] AST 25 10 - 50 Units/L [facility] Blood 07/03/2024 7:25 AM FIGHTING [employer]LE SYSTEMS MAINTAINER 07/03/2024 7:27 AM FIGHTING [employer] SYSTEMS MAINTAINER us Devon Carlin MD LAB BLOOD ORDERABLES Fin al Result [facility] Department [place] [address] * (ABNORMAL) CBC with auto differential (07/03/2024 7:23 AM FIGHTING [employer] SYSTEMS MAINTAINER) Pathologist [facility] WBC 8.0 3.8 - 9.9 K/cumm Comment:Testing performed by : [facility], [address] [place], [place] [phone] Hgb 9.6(L) 13.0 - 17.5 g/dL [facility] Comment:Testing performed by : [facility], [address] [place], [place] [phone] Hct 29.9(L) 38.9 - 50.3 % [facility] Comment:Testing performed by : [facility], [address] [place], [place] [phone] Plt 384 150 - 400 K/cumm [facility] Comment:Testing performed by : [facility], [address] [place], [place] [phone] MPV 7.2 6.8 - 10.4 fL [facility] Comment:Testing performed by : [facility], [address] [place], [place] [phone] RBC 3.33(L) 4.30 - 5.80 M/cumm [facility] Comment:Testing performed by : [facility], [address] [place], [place] [phone] MCV 89.7 81.3 - 96.4 fL [facility] Comment:Testing performed by : [facility], [address] [place], [place] [phone] MCH 28.9 27.1 - 33.3 pg [facility] Comment:Testing performed by : [facility], [address] [place] [address] MCHC 32.2(L) 32.3 - 35.7 g/dL [facility] Comment:Testing performed by : [facility], [address] [place] [address] RDW CV 18.4(H) 11.1 - 14.9 % [facility] Comment:Testing performed by : [facility], [address] [place] [address] NRBC abs 0.00 0.00 - 0.01 K/cumm [facility] Comment:Testing performed by : [facility], [address] [place], [place] [phone] Blood 07/03/2024 7:23 AM FIGHTING [employer]LE SYSTEMS MAINTAINER 07/03/2024 7:27 AM FIGHTING [employer]LE SYSTEMS MAINTAINER us Devon Carlin MD LAB BLOOD ORDERABLES Fin al Result NERY HUSAIN [facility] Department [place] [address] * (ABNORMAL) Manual Differential (07/03/2024 7:23 AM FIGHTING VEH[employer]LE SYSTEMS MAINTAINER) Cells Counted 199 Comment:Testing performed by : [facility], [address] [place] [address] Neutrophil abs 6.1 1.5 - 6.5 K/cumm [facility]ER[facility]E [facility] Comment:Testing performed by : [facility], [address] [place], [place] [phone] Lymphocyte abs 1.0 0.8 - 3.3 K/cumm [facility] Comment:Testing performed by : [facility], [address] [place] [phone] Monocyte abs 0.2 0.2 - 0.8 K/cumm [facility] Comment:Testing performed by : [facility], [address] [place] [address] Eosinophil abs 0.5 0.0 - 0.5 K/cumm [facility] Comment:Testing performed by : [facility], [address] [place] [address] Basophil abs 0.1 0.0 - 0.1 K/cumm [facility] Comment:Testing performed by : [facility], [address] [place] [address] Neutrophil pct 76.0 % [facility] Comment: Interpretive Data Percent cell count reference ranges are not reported, since discordance with absolute values may lead to misinterpretation of CBC data. Current Interpretive Data was last revised on 2017. Testing performed by: [facility], [address] [place] [phone] Lymphocyte pct 12.0 % [facility] Comment: Interpretive Data Percent cell count reference ranges are not reported, since discordance with absolute values may lead to misinterpretation of CBC data. Current Interpretive Data was last revised on 2017. Testing performed by: [facility], [address] [place] [phone] Monocyte pct 2.0 % [facility] Comment: Interpretive Data Percent cell count reference ranges are not reported, since discordance with absolute values may lead to misinterpretation of CBC data. Current Interpretive Data was last revised on 2017. Testing performed by: [facility], [address] [place] [phone] Eosinophil pct 6.0 % [facility] Comment: Interpretive Data Percent cell count reference ranges are not reported, since discordance with absolute values may lead to misinterpretation of CBC data. Current Interpretive Data was last revised on 2017. Testing performed by: [facility], [address] [place] [phone] Basophil pct 1.0 % [facility] Comment: Interpretive Data Percent cell count reference ranges are not reported, since discordance with absolute values may lead to misinterpretation of CBC data. Current Interpretive Data was last revised on 2017. Testing performed by: [facility], [address] [place] [phone] Metamyelocyte pct 3.0 % [facility] Comment:Testing performed by : [facility], [address] [place] [phone] Myelocyte pct 1.0 % [facility] Comment:Testing performed by : [facility], [address] [place] [phone] RBC morphology NRBCs present(A) [facility] Comment:Testing performed by : [facility], [address] [place] [phone] Polychromasia 1+(A) [facility] Comment:Testing performed by : [facility], [address] [place] [phone] Anisocytosis 1+(A) [facility] Comment:Testing performed by : [facility], [address] [place] [address] Microcytes 1+(A) [facility] Comment:Testing performed by : [facility], [address] [place] [address] Macrocytes 1+(A) [facility] Comment:Testing performed by : [facility], [facility] [place] [address] Platelet estimate Adequate [facility] Comment:Testing performed by : [facility], [facility] [place] [phone] Blood 07/03/2024 7:23 AM FIGHTING [employer] SYSTEMS MAINTAINER 07/03/2024 7:27 AM FIGHTING VEHICLE SYSTEMS MAINTAINER us Devon Carlin MD LAB BLOOD ORDERABLES Fin al Result [facility] Department [place] [address] * eGFR (06/26/2024 7:50 AM FIGHTING [employer] SYSTEMS MAINTAINER) eGFR 67 >=60 mL/min/1. 73 m2 Comment: [...] last reviewed 2021. Blood 06/26/2024 7:50 AM FIGHTING VEHICLE SYSTEMS MAINTAINER 06/26/2024 7:57 AM FIGHTING VEHICLE SYSTEMS MAINTAINER us Devon Carlin MD LAB BLOOD ORDERABLES Fin al Result [facility] Department [place] [address] * Differential, auto (06/26/2024 7:50 AM FIGHTING VEH[employer]LE SYSTEMS MAINTAINER) Neutrophil abs 5.5 1.5 - 6.5 K/cumm Comment:Testing performed by : [facility], [address] [place] [phone] Lymphocyte abs 1.7 0.8 - 3.3 K/cumm [facility] Comment:Testing performed by : [facility], [address] [place] [phone] Monocyte abs 0.4 0.2 - 0.8 K/cumm [facility] Comment:Testing performed by : [facility], [address] [place] [phone] Eosinophil abs 0.1 0.0 - 0.5 K/cumm [facility] Comment:Testing performed by : [facility], [address] [place] [phone] Basophil abs 0.1 0.0 - 0.1 K/cumm [facility] Comment:Testing performed by : [facility], [address] [place] [phone] Neutrophil pct 70.1 % [facility] Comment: Interpretive Data Percent cell count reference ranges are not reported, since discordance with absolute values may lead to misinterpretation of CBC data. Current Interpretive Data was last revised on 2017. Testing performed by: [facility], [address] [place] [phone] Lymphocyte pct 22.1 % [facility] Comment: Interpretive Data Percent cell count reference ranges are not reported, since discordance with absolute values may lead to misinterpretation of CBC data. Current Interpretive Data was last revised on 2017. Testing performed by: [facility], [address] [place] [phone] Monocyte pct 5.3 % NERY HUSAIN Comment: Interpretive Data Percent cell count reference ranges are not reported, since discordance with absolute values may lead to misinterpretation of CBC data. Current Interpretive Data was last revised on 2017. Testing performed by: [facility], [address] [place] [phone] Eosinophil pct 1.3 % [facility] Comment: Interpretive Data Percent cell count reference ranges are not reported, since discordance with absolute values may lead to misinterpretation of CBC data. Current Interpretive Data was last revised on 2017. Testing performed by: [facility], [address] [place] [phone] Basophil pct 1.2 % NERY HUSAIN Comment: Interpretive Data Percent cell count reference ranges are not reported, since discordance with absolute values may lead to misinterpretation of CBC data. Current Interpretive Data was last revised on 2017. Testing performed by: [facility], [address] [place] [address] Blood 06/26/2024 7:50 AM FIGHTING VEHICLE SYSTEMS MAINTAINER 06/26/2024 7:52 AM FIGHTING VEHICLE SYSTEMS MAINTAINER us Devon Carlin MD LAB BLOOD ORDERABLES Fin al Result [facility] Department [place] [address] * (ABNORMAL) CBC with auto differential (06/26/2024 7:50 AM FIGHTING VEHICLE SYSTEMS MAINTAINER) WBC 7.9 3.8 - 9.9 K/cumm Comment:Testing performed by : [facility], [address] [place] [address] Hgb 10.3(L) 13.0 - 17.5 g/dL NERY HUSAIN Comment:Testing performed by : [facility], [address] [place] [address] Hct 32.8(L) 38.9 - 50.3 % CERNER BJ Comment:Testing performed by : [facility], [address] [place] [address] Plt 447(H) 150 - 400 K/cumm CERNER BJ Comment:Testing performed by : [facility], [address] [place] [address] MPV 6.7(L) 6.8 - 10.4 fL CERNER BJ Comment:Testing performed by : [facility], [address] [place] [address] RBC 3.59(L) 4.30 - 5.80 M/cumm CERNER BJ Comment:Testing performed by : [facility], [address] [place] [address] MCV 91.4 81.3 - 96.4 fL CERNER BJ Comment:Testing performed by : [facility], [address] [place] [address] MCH 28.7 27.1 - 33.3 pg CERNER BJ Comment:Testing performed by : [facility], [address] [place] [address] MCHC 31.3(L) 32.3 - 35.7 g/dL CERNER BJ Comment:Testing performed by : [facility], [address] [place] [address] RDW CV 18.4(H) 11.1 - 14.9 % CERNER BJ Comment:Testing performed by : [facility], [address] [place] [address] NRBC abs 0.00 0.00 - 0.01 K/cumm CERNER BJ Comment:Testing performed by : [facility], [address] [place] [address] Blood 06/26/2024 7:50 AM FIGHTING VEHICLE SYSTEMS MAINTAINER 06/26/2024 7:52 AM FIGHTING VEHICLE SYSTEMS MAINTAINER us Devon aCrlin MD LAB BLOOD ORDERABLES Fin al Result Performing Organization Address City/State/[facility] Co de Phone Number [facility] [place] [address] * (ABNORMAL) Total testosterone (06/26/2024 7:50 AM FIGHTING VEHICLE SYSTEMS MAINTAINER) Testosterone <5.0(L) 193.0 - 740.0 ng/dL Blood 06/26/2024 7:50 AM FIGHTING VEHICLE SYSTEMS MAINTAINER 06/26/2024 8:33 AM FIGHTING VEHICLE SYSTEMS MAINTAINER Devon Carlin MD LAB BLOOD ORDERABLES Fin al Result Performing Organization Address [facility] de Phone Number NERY [facility] [place] [address] * (ABNORMAL) PSA diagnostic (06/26/2024 7:50 AM FIGHTING VEHICLE SYSTEMS MAINTAINER) PSA-Total 129.00(H) <=6.20 ng/mL Comment: Interpretive Data [...] last revised 21. Blood 06/26/2024 7:50 AM FIGHTING VEHICLE SYSTEMS MAINTAINER 06/26/2024 7:57 AM FIGHTING VEHICLE SYSTEMS MAINTAINER Devon Carlin MD LAB BLOOD ORDERABLES Fin al Result Performing Organization Address [facility] Co de Phone Number NERY [facility] Department [place] [address] * (ABNORMAL) Comprehensive metabolic panel (06/26/2024 7:50 AM FIGHTING VEHICLE SYSTEMS MAINTAINER) Sodium 141 135 - 145 mmol/L Potassium, pl 5.1(H) 3.3 - 4.9 mmol/L [facility] Chloride 105 97 - 110 mmol/L [facility] CO2 28 22 - 32 mmol/L [facility] Anion gap 8 2 - 15 mmol/L [facility] BUN 19 6 - 25 mg/dL [facility] Creatinine 1.12 0.80 - 1.30 mg/dL [facility] Glucose 154 70 - 199 mg/dL [facility] Comment: Interpretive Data Fasting glucose >/= [...] 2022. Calcium 9.7 8.5 - 10.3 mg/dL [facility] Bilirubin, total 0.4 0.1 - 1.2 mg/dL [facility] Protein, pl 7.2 6.5 - 8.5 g/dL [facility] Albumin 3.9 3.5 - 5.0 g/dL [facility] Alk phos 535(H) 40 - 130 Units/L [facility] ALT 16 7 - 55 Units/L [facility] AST 23 10 - 50 Units/L [facility] Blood 06/26/2024 7:50 AM FIGHTING VEHICLE SYSTEMS MAINTAINER 06/26/2024 7:57 AM FIGHTING VEHICLE SYSTEMS MAINTAINER us Devon Carlin MD LAB BLOOD ORDERABLES Fin al Result [facility] Department of Laboratories [place], [place] [id number] * eGFR (06/12/2024 8:20 AM FIGHTING VEHICLE SYSTEMS MAINTAINER) eGFR 72 >=60 mL/min/1. 73 m2 Comment: [...] last reviewed 2021. Blood 06/12/2024 8:20 AM FIGHTING VEHICLE SYSTEMS MAINTAINER 06/12/2024 8:28 AM FIGHTING VEHICLE SYSTEMS MAINTAINER us Devon Carlin MD LAB BLOOD ORDERABLES Fin al Result [facility] Department [place] [address] * (ABNORMAL) Comprehensive metabolic panel (06/12/2024 8:20 AM FIGHTING VEHICLE SYSTEMS MAINTAINER) Sodium 137 135 - 145 mmol/L Potassium, pl 4.6 3.3 - 4.9 mmol/L [facility] Chloride 102 97 - 110 mmol/L [facility] CO2 28 22 - 32 mmol/L [facility] Anion gap 7 2 - 15 mmol/L [facility] BUN 20 6 - 25 mg/dL [facility] Creatinine 1.05 0.80 - 1.30 mg/dL [facility] Glucose 140 70 - 199 mg/dL [facility] Comment: Interpretive Data Fasting glucose >/= [...] 2022. Calcium 9.5 8.5 - 10.3 mg/dL [facility] Bilirubin, total 0.3 0.1 - 1.2 mg/dL [facility]ERNER [facility] Protein, pl 6.8 6.5 - 8.5 g/dL [facility]ERNER [facility] Albumin 3.7 3.5 - 5.0 g/dL [facility]ERN[facility] Alk phos 572(H) 40 - 130 Units/L [facility] ALT 21 7 - 55 Units/L [facility] AST 27 10 - 50 Units/L [facility] Blood 06/12/2024 8:20 AM FIGHTING VEHICLE SYSTEMS MAINTAINER 06/12/2024 8:28 AM FIGHTING VEHICLE SYSTEMS MAINTAINER Narrative [facility]ER [facility] - 06/12/2024 8:59 AM FIGHTING VEHICLE SYSTEMS MAINTAINER Has the patient fasted?->No us Devon Carlin MD LAB BLOOD ORDERABLES Fin al Result [facility] Department [place] [address] * Differential, auto (06/12/2024 7:24 AM FIGHTING VEHICLE SYSTEMS MAINTAINER) Neutrophil abs 5.3 1.5 - 6.5 K/cumm Comment:Testing performed by : [facility], [address] [place] [phone] Lymphocyte abs 2.2 0.8 - 3.3 K/cumm [facility] Comment:Testing performed by : [facility], [address] [place] [phone] Monocyte abs 0.4 0.2 - 0.8 K/cumm CERNER BJ Comment:Testing performed by : [facility], [address] [place] [phone] Eosinophil abs 0.5 0.0 - 0.5 K/cumm CERNER BJ Comment:Testing performed by : [facility], [address] [place] [phone] Basophil abs 0.1 0.0 - 0.1 K/cumm CERNER BJ Comment:Testing performed by : [facility], [address] [place] [address] Neutrophil pct 61.8 % CERNER BJ Comment: Interpretive Data Percent cell count reference ranges are not reported, since discordance with absolute values may lead to misinterpretation of CBC data. Current Interpretive Data was last revised on 2017. Testing performed by: [facility], [address] [place], [place] [id number] Lymphocyte pct 25.8 % CERNER BJ Comment: Interpretive Data Percent cell count reference ranges are not reported, since discordance with absolute values may lead to misinterpretation of CBC data. Current Interpretive Data was last revised on 2017. Testing performed by: [facility], [address] [place], [place] [id number] Monocyte pct 4.9 % CERNER BJ Comment: Interpretive Data Percent cell count reference ranges are not reported, since discordance with absolute values may lead to misinterpretation of CBC data. Current Interpretive Data was last revised on 2017. Testing performed by: [facility], [address] [place], [place] [id number] Eosinophil pct 6.1 % CERNER BJ Comment: Interpretive Data Percent cell count reference ranges are not reported, since discordance with absolute values may lead to misinterpretation of CBC data. Current Interpretive Data was last revised on 2017. Testing performed by: [facility], [address] [place] [phone] Basophil pct 1.4 % CERNER BJ Comment: Interpretive Data Percent cell count reference ranges are not reported, since discordance with absolute values may lead to misinterpretation of CBC data. Current Interpretive Data was last revised on 2017. Testing performed by: [facility], [address] [place], [place] [phone] Blood 06/12/2024 7:24 AM FIGHTING VEHICLE SYSTEMS MAINTAINER 06/12/2024 7:28 AM FIGHTING VEHICLE SYSTEMS MAINTAINER Devon Carlin MD LAB BLOOD ORDERABLES Fin al Result NERY HUSAIN [facility] Department [place] [address] * (ABNORMAL) CBC with auto differential (06/12/2024 7:24 AM FIGHTING VEHICLE SYSTEMS MAINTAINER) WBC 8.6 3.8 - 9.9 K/cumm Comment:Testing performed by : [facility], [address] [place] [address] Hgb 9.3(L) 13.0 - 17.5 g/dL NERY HUSAIN Comment:Testing performed by : [facility], [address] [place] [address] Hct 28.8(L) 38.9 - 50.3 % NERY HUSAIN Comment:Testing performed by : [facility], [address] [place] [address] Plt 358 150 - 400 K/cumm CERGENE HUSAIN Comment:Testing performed by : [facility], [address] [place] [address] MPV 7.0 6.8 - 10.4 fL CERGENE BJ Comment:Testing performed by : [facility], [address] [place] [address] RBC 3.12(L) 4.30 - 5.80 M/cumm CERGENE HUSAIN Comment:Testing performed by : [facility], [address] [place] [address] MCV 92.2 81.3 - 96.4 fL CERGENE BJ Comment:Testing performed by : [facility], [address] [place] [address] MCH 29.9 27.1 - 33.3 pg CERGENE BJ Comment:Testing performed by : [facility], [address] [place] [address] MCHC 32.4 32.3 - 35.7 g/dL CERGENE BJ Comment:Testing performed by : [facility], [address] [place] [address] [place] [phone] RDW CV 18.4(H) 11.1 - 14.9 % [facility] Comment:Testing performed by : [facility], [address] [place] [phone] NRBC abs 0.00 0.00 - 0.01 K/cumm [facility] Comment:Testing performed by : [facility], [address] [place] [phone] Blood 06/12/2024 7:24 AM FIGHTING VEHICLE SYSTEMS MAINTAINER 06/12/2024 7:28 AM FIGHTING VEHICLE SYSTEMS MAINTAINER Devon Carlin MD LAB BLOOD ORDERABLES Fin al Result [facility] Department [place] [address] * (ABNORMAL) eGFR (06/05/2024 8:47 AM FIGHTING VEHICLE SYSTEMS MAINTAINER) eGFR 55(L) >=60 mL/min/1. 73 m2 Comment: [...] last reviewed 2021. Blood 06/05/2024 8:47 AM FIGHTING VEHICLE SYSTEMS MAINTAINER 06/05/2024 8:58 AM FIGHTING VEHICLE SYSTEMS MAINTAINER us Devon Carlin MD LAB BLOOD ORDERABLES Fin al Result [facility] Department [place] [address] * Differential, auto (06/05/2024 8:47 AM FIGHTING VEHICLE SYSTEMS MAINTAINER) Neutrophil abs 4.8 1.5 - 6.5 K/cumm Comment:Testing performed by : [facility], [address] [place] [phone] Lymphocyte abs 1.5 0.8 - 3.3 K/cumm CERNER BJ Comment:Testing performed by : [facility], [address] [place], [place] [phone] Monocyte abs 0.6 0.2 - 0.8 K/cumm CERNER BJ Comment:Testing performed by : [facility], [address] [place] [phone] Eosinophil abs 0.2 0.0 - 0.5 K/cumm CERNER BJ Comment:Testing performed by : [facility], [address] [place] [phone] Basophil abs 0.1 0.0 - 0.1 K/cumm CERNER BJ Comment:Testing performed by : [facility], [address] [place] [phone] Neutrophil pct 66.8 % CERNER BJ Comment: Interpretive Data Percent cell count reference ranges are not reported, since discordance with absolute values may lead to misinterpretation of CBC data. Current Interpretive Data was last revised on 2017. Testing performed by: [facility], [address] [place] [phone] Lymphocyte pct 21.0 % CERNER BJ Comment: Interpretive Data Percent cell count reference ranges are not reported, since discordance with absolute values may lead to misinterpretation of CBC data. Current Interpretive Data was last revised on 2017. Testing performed by: [facility], [address] [place] [phone] Monocyte pct 8.4 % CERNER BJ Comment: Interpretive Data Percent cell count reference ranges are not reported, since discordance with absolute values may lead to misinterpretation of CBC data. Current Interpretive Data was last revised on 2017. Testing performed by: [facility], [address] [place] [phone] Eosinophil pct 2.4 % NERY ARAGON Comment: Interpretive Data Percent cell count reference ranges are not reported, since discordance with absolute values may lead to misinterpretation of CBC data. Current Interpretive Data was last revised on 2017. Testing performed by: [facility], [address] [place] [phone] Basophil pct 1.4 % NERY HUSAIN Comment: Interpretive Data Percent cell count reference ranges are not reported, since discordance with absolute values may lead to misinterpretation of CBC data. Current Interpretive Data was last revised on 2017. Testing performed by: [facility], [address] [place] [phone] Blood 06/05/2024 8:47 AM FIGHTING VEHICLE SYSTEMS MAINTAINER 06/05/2024 8:48 AM FIGHTING VEHICLE SYSTEMS MAINTAINER us Devon Carlin MD LAB BLOOD ORDERABLES Fin al Result NERY HUSAIN [facility] Department [place] [address] * (ABNORMAL) CBC with auto differential (06/05/2024 8:47 AM FIGHTING VEHICLE SYSTEMS MAINTAINER) WBC 7.2 3.8 - 9.9 K/cumm Comment:Testing performed by : [facility], [address] [place] [phone] Hgb 9.7(L) 13.0 - 17.5 g/dL NERY ARAGON Comment:Testing performed by : [facility], [address] [place] [phone] Hct 30.3(L) 38.9 - 50.3 % NERY ARAGON Comment:Testing performed by : [facility], [address] [place] [address] Plt 398 150 - 400 K/cumm CERNER BJ Comment:Testing performed by : [facility], [address] [place] [address] MPV 6.5(L) 6.8 - 10.4 fL CERNER BJ Comment:Testing performed by : [facility], [address] [place] [address] RBC 3.27(L) 4.30 - 5.80 M/cumm CERNER BJ Comment:Testing performed by : [facility], [address] [place] [address] MCV 92.6 81.3 - 96.4 fL CERNER BJ Comment:Testing performed by : [facility], [address] [place] [address] MCH 29.7 27.1 - 33.3 pg CERNER BJ Comment:Testing performed by : [facility], [address] [place] [address] MCHC 32.1(L) 32.3 - 35.7 g/dL CERNER BJ Comment:Testing performed by : [facility], [address] [place] [address] RDW CV 18.4(H) 11.1 - 14.9 % CERNER BJ Comment:Testing performed by : [facility], [address] [place] [address] NRBC abs 0.00 0.00 - 0.01 K/cumm CERNER BJ Comment:Testing performed by : [facility], [address] [place] [address] Blood 06/05/2024 8:47 AM FIGHTING VEHICLE SYSTEMS MAINTAINER 06/05/2024 8:48 AM FIGHTING VEHICLE SYSTEMS MAINTAINER us Devon Carlin MD LAB BLOOD ORDERABLES Fin al Result [facility] Department [place] [address] * (ABNORMAL) Total testosterone (06/05/2024 8:47 AM FIGHTING VEHICLE SYSTEMS MAINTAINER) Pathologist [facility] Testosterone <5.0(L) 193.0 - 740.0 ng/dL Blood 06/05/2024 8:47 AM FIGHTING VEHICLE SYSTEMS MAINTAINER 06/05/2024 9:17 AM FIGHTING VEHICLE SYSTEMS MAINTAINER Devon Carlin MD LAB BLOOD ORDERABLES Fin al Result Performing Organization Address [facility] de Phone Number [facility] [place] [address] * (ABNORMAL) PSA diagnostic (06/05/2024 8:47 AM FIGHTING VEHICLE SYSTEMS MAINTAINER) [facility] PSA-Total 141.00(H) <=6.20 ng/mL Comment: Interpretive Data [...] last revised 21. Blood 06/05/2024 8:47 AM FIGHTING VEHICLE SYSTEMS MAINTAINER 06/05/2024 8:58 AM FIGHTING VEHICLE SYSTEMS MAINTAINER Devon Carlin MD LAB BLOOD ORDERABLES Fin al Result Performing Organization Address [facility] de Phone Number [facility] Department [place] [address] * (ABNORMAL) Comprehensive metabolic panel (06/05/2024 8:47 AM FIGHTING VEHICLE SYSTEMS MAINTAINER) [facility] Sodium 140 135 - 145 mmol/L Potassium, pl 4.3 3.3 - 4.9 mmol/L [facility] Chloride 103 97 - 110 mmol/L [facility] CO2 27 22 - 32 mmol/L [facility] Anion gap 10 2 - 15 mmol/L [facility] BUN 21 6 - 25 mg/dL [facility] Creatinine 1.32(H) 0.80 - 1.30 mg/dL [facility] Glucose 125 70 - 199 mg/dL [facility] Comment: Interpretive Data Fasting glucose >/= [...] 2022. Calcium 9.4 8.5 - 10.3 mg/dL [facility] Bilirubin, total 0.3 0.1 - 1.2 mg/dL [facility] Protein, pl 6.7 6.5 - 8.5 g/dL [facility] Albumin 3.8 3.5 - 5.0 g/dL [facility] Alk phos 664(H) 40 - 130 Units/L [facility] ALT 16 7 - 55 Units/L [facility] AST 22 10 - 50 Units/L [facility] Blood 06/05/2024 8:47 AM FIGHTING VEHICLE SYSTEMS MAINTAINER 06/05/2024 8:58 AM FIGHTING VEHICLE SYSTEMS MAINTAINER Devon Carlin MD LAB BLOOD ORDERABLES Fin al Result [facility] Department [place] [address] from Last 3 Months Insurance MEDICARE IDPA MEDICARE MEDICARE Advance Directives For more information, please contact: [phone] Documents on File Type Date Recorded Patient Jitterbug Operator Expl anation Advance Directives and Livin g Will 12/27/2023 11:23 AM * Full Code (Latest Code Status on File) Date Activated Date Inactivated Comments 01/17/2024 10:18 PM 01/19/2024 6:34 PM * Full Code Date Activated Date Inactivated Comments 12/18/2023 11:47 PM 12/21/2023 7:08 PM Care Teams Exchange Clerk Relationship Specialty Start Date End Date Saw Ga MD [address] [place] [id number] PCP - General 10/20/16 Devon Carlin MD [address] [facility], [place] [address] [place] [address] Medical Oncology 12/21/23
[2024-08-31 19:31] LABS: Basophils Absolute Auto 0.1 K/mm3 (0.0-0.1); Basophils Percent Auto 0.7 % (0.2-1.2); Eosinophils Absolute Auto 0.4 K/mm3 (0-0.3); Eosinophils Percent Auto 5.6 % (0-4.4); Hematocrit 27.2 % (42.0-52.0); Hemoglobin 8.6 g/dL (14.0-18.0); Immature Granulocyte Absolute 0.03 K/mm3 (0.00-0.031); Immature Granulocyte Percent A 0.4 % (0-0.5); Lymphocytes Absolute Auto 0.82 K/mm3 (0.9-3.2); Lymphocytes Percent Auto 11.8 % (18.3-44.2); Mean Corpuscular HGB Conc 31.6 g/dl (32-36); Mean Corpuscular Hemoglobin 26.7 pg (26-34); Mean Corpuscular Volume 84.5 fl (80-100); Monocytes Absolute Auto 0.3 K/mm3 (0.1-0.6); Monocytes Percent Auto 3.6 % (2.6-8.5); Neutrophils Absolute Auto 5.4 K/mm3 (1.3-6.7); Neutrophils Percent Auto 77.9 % (45.5-73.1); Nucleated Red Blood Cells Perc 0.4 % (0.0-0.2); Platelet Count Result 421 k/mm3 (150-375); Red Blood Count 3.22 M/mm3 (4.6-6.20); Red Cell Distribution Width 18.7 % (11.5-14.5)
[2024-08-31 19:42] LABS: Alanine Aminotransferase 70 U/L (6-50); Albumin Level 3.3 g/dL (3.5-5.1); Alkaline Phosphatase 389 U/L (38-126); Anion Gap 11 mmol/L (4-12); Aspartate Amino Transferase 77 U/L (17-59); Bilirubin,Total 0.6 mg/dL (0.2-1.3); Blood Urea Nitrogen 25 mg/dL (9-20); Carbon Dioxide 25 mmol/L (22-30); Chloride 101 mmol/L (98-107); Estimated CRCL calculation 51 ml/min; Estimated Glomerular Filt Rate > 60; Glucose 97 mg/dL (65-110); Potassium 3.8 mmol/L (3.4-5.0); Sodium 137 mmol/L (137-145)
--- NOTE | 2024-08-31 20:01 | ED.CHESTPAIN ---
HPI - Chest Pain General Chief Complaint: Chest Pain Stated Complaint: cp, sob, fever Time Seen by Provider: 08/31/24 18:41 History of Present Illness HPI narrative: 79-year-old male with history of prostate cancer, paroxysmal AFib, CAD, GERD , metastatic prostate cancer presents to the emergency department for chest pain, shortness of breath, cough and subjective fever for the past few days. Patient reports diffuse pain throughout his chest, states it is worse with coughing. Reports a productive cough. States he does have some intermittent lower extremity edema. Denies hemoptysis, recent surgeries or hospitalizations. He is not taking his temperature but states he has had hot and cold flashes. Per chart review, patient had an echocardiogram on 03/16/2020 which showed a normal EF of 70-75% with grade 1 diastolic dysfunction. patient does not appear to be on any diuretics. Additionally the patient states he had a right inguinal hernia repair performed at [facility] recently. Per chart review this appeared do occurred beginning of July. The patient was seen by PCP 08/11/2024 for difficulty breathing at that time was recommended to have further workup including imaging due to concerns for postoperative pneumonia and PE, however patient declined at that time. Related Data Home Medications ?Medication ?Instructions ?Recorded ?Confirmed ?Last Taken ?Type atorvastatin 20 mg tablet 20 mg PO DAILY 06/04/19 08/31/24 06/29/21 History flecainide 100 mg tablet 100 mg PO BID 06/04/19 08/31/24 06/09/22 History metoprolol succinate 25 mg 25 mg PO HS 08/17/22 08/31/24 Unknown History tablet,extended release 24 hr ascorbate calcium (vitamin C) 500 500 mg PO DAILY 02/29/24 08/19/24 Unknown History mg tablet cholecalciferol (vitamin D3) 125 125 mcg PO 1700 02/29/24 08/19/24 Unknown History mcg (5,000 unit) tablet (Vitamin D3) docusate sodium 100 mg capsule 100 mg PO HS 02/29/24 08/31/24 Unknown History (Colace) duloxetine 60 mg capsule,delayed 60 mg PO HS 02/29/24 08/31/24 Unknown History release esomeprazole magnesium 40 mg 40 mg PO 1200 02/29/24 08/19/24 Unknown History capsule,delayed release (Nexium) ferrous sulfate 325 mg (65 mg 325 mg PO BID 02/29/24 08/19/24 Unknown History iron) tablet vitamin A 2,400 mcg capsule 2,400 mcg PO 1700 02/29/24 08/19/24 Unknown History Allergies Allergy/AdvReac Type Severity Reaction Status Date / Time No Known Allergies Allergy Verified 08/31/24 18:16 Review of Systems Review of Systems: All systems reviewed & are unremarkable except as noted in HPI and below PMFSH Past Medical History Medical History Cerumen impaction Right sided abdominal pain Right inguinal pain Tubular adenoma of colon (09/19/23) tubular adenoma sigmoid colon 10/18/2023. Prostate cancer metastatic to bone Hematuria Acute on chronic blood loss anemia Rectal bleeding Benign paroxysmal positional vertigo due to bilateral vestibular disorder Dermatitis of face (~09/23/22) Essential hypertension Rib pain on left side (~07/09/22) Diffuse metastatic lesions of the spine, ribs, scapula with possible non displaced anterior lateral 9th rib fracture on x-ray 07/19/2022. Chronic low back pain X-ray 07/19/2022 with degenerative changes of the lumbar spine with diffuse sclerotic metastatic lesions. Paroxysmal atrial fibrillation Overweight (BMI 25.0-29.9) At high risk for falls Bone metastases History of prostate cancer Postoperative ileus Atrial fibrillation Prostate cancer PSA 0.5 on 11/10/2022. PSA 4.7 on 03/29/2023. PSA 6.1 on 05/01/2023. Iron deficiency anemia, unspecified total iron 31 with 7% saturation and ferritin 44 with hemoglobin 12.8 on 01/18/2021 Eosinophilia (~11/02/20) eosinophil count 1248 on 11/02/2020 Anemia (11/02/20) hemoglobin 12.7 on 11/02/2020. Hemoglobin 12.5 on 11/10/2022. Elevated PSA, between 10 and less than 20 ng/ml (11/02/20) PSA 16.3 on 11/02/2020 Tobacco use disorder, continuous 5 or 6 cigarettes daily CAD (coronary artery disease), [place] coronary artery Eczema Folliculitis Tinea cruris COVID-19 virus detected (~02/16/20) Obstructive sleep apnea on CPAP does not use CPAP Chronic anxiety Keloid scar Chronic pain of left knee Mixed hyperlipidemia Nocturia Type 2 diabetes mellitus without complication, without long-term current use of insulin Glucose 173 on 11/10/2022. Surgical History Surgical History Hx of right inguinal hernia repair History of hernia repair Family History Family History Mother Family history of malignant neoplasm Father Family history of malignant neoplasm Social History Social History Smoking packs per day: 0.2 Smoking cigarettes per day: 4.0 Years smoked: 60 Smoking pack-years: 12.00 Smoking status: Former smoker Alcohol intake: never Alcohol use details: HEAVIER DRINKER - QUIT EARLY Substance use: never Substance use type: does not use Do You Feel Safe in your Home?: Yes Lack of Transportation: No Lack of Food: Never True Current Housing: I Have Housing Concerned About Future Housing: No Difficulty Paying Gas/Electric Bills: No Difficulty Paying for Meds: No Currently Unemployed: No Education: Grade School Difficulty w/ Childcare or Family Care: No Living arrangements: with family Additional living arrangements comments: - [facility] Spiritual care concerns: No Exam Narrative: GENERAL: Well-appearing, well-nourished, and in no acute distress. HEAD: Normocephalic, atraumatic. EYES: PERRLA and EOMI. ENT: Nares clear, no rhinorrhea or epistaxis. Mucous membranes moist. NECK: Supple. CHEST: Rhonchi throughout lung chavez, otherwise no rales or wheezing. Patient satting 96% on room air in no respiratory distress HEART: Regular rate and rhythm. No murmur heard. Normal peripheral pulses. ABDOMEN: Soft, nontender, nondistended, normal active bowel sounds. EXTREMITIES: Normal range of motion. No edema. SKIN: Warm, dry, no rash. NEURO: No focal deficits. Alert and oriented x3 Course Vital Signs Vital signs: Vital Signs Temperature 98.0 F 08/31/24 18:25 Pulse Rate 106 H 08/31/24 18:25 Respiratory Rate 24 H 08/31/24 18:25 Blood Pressure 153/76 H 08/31/24 18:25 Pulse Oximetry 96 08/31/24 18:25 Oxygen Delivery Room Air 08/31/24 18:25 Temperature 98.0 F 08/31/24 18:27 Pulse Rate 72 08/31/24 20:21 Respiratory Rate 16 08/31/24 20:21 Blood Pressure 157/77 H 08/31/24 20:21 Pulse Oximetry 98 08/31/24 20:21 Oxygen Delivery Room Air 08/31/24 18:31 MDM - Chest Pain MDM Narrative Medical decision making narrative: 79-year-old male history of metastatic prostate cancer, grade 1 diastolic dysfunction, hyperlipidemia, paroxysmal AFib, GERD presents to the emergency department for cough, congestion, chest pain with coughing, shortness of breath, generalized malaise and fatigue for the past few days. Triage vitals with tachycardia 106 and tachypnea of 24. Patient afebrile, exam is significant for the above. Shadow Graph Weight Operator used for every patient encounter. Lab work shows no leukocytosis, chronic anemia with stable hemoglobin of 8.6. Chemistries showing elevation in liver enzymes with AST of 77, ALT of 70 alk phos of 389. BNP is elevated to 1210, no prior for comparison. Suspect liver enzymes secondary to CHF exacerbation. Patient did test positive for influenza A which is overall consistent with his presentation. EKG just shows sinus rhythm with rate of 99 ppm, normal NM interval, normal QRS duration, normal QTC, minimal Q-waves in the inferior leads, nonspecific ST and T-wave abnormalities, no significant changes when compared to prior EKG. Troponin undetectable x2. Chest x-ray shows mild pulmonary vascular congestion with large left-sided pleural effusion. D-dimer obtained which is elevated 8.71, CTA chest PE obtained which shows no PE, no thoracic aortic dissection, large bilateral pleural effusions L>R with adjacent compressive atelectasis, small pericardial effusion and findings consistent with known metastatic prostate cancer. Pt and family updated on results. Patient ambulated with a pulse ox and unfortunately desaturated to 72%. I strongly advised admission for diuresis, hypoxia and influenza. Patient adamantly does not want to be admitted and states he needs to go home to his house. I discussed risks of leaving against medical advice including worsening condition, permanent disability, intubation and . Patient verbalizes understanding of these risks via american sign language interpreter and adamantly still wanting to go home. AMA paperwork signed. I encouraged him to return to the emergency department if he would like further workup or management. Lab Data 08/31/24 19:27 08/31/24 19:27 Labs: Lab Results 08/31/24 08/31/24 Range/Units 19:27 20:15 WBC 7.0 (4.5-10.0) K/mm3 RBC 3.22 L (4.6-6.20) M/mm3 Hgb 8.6 L (14.0-18.0) g/dL Hct 27.2 L (42.0-52.0) % MCV 84.5 (80-100) fl MCH 26.7 (26-34) pg MCHC 31.6 L (32-36) g/dl RDW 18.7 H (11.5-14.5) % Plt Count 421 H D (150-375) k/mm3 MPV 9.0 (7.4-10.4) fl Immature Gran % (Auto) 0.4 (0-0.5) % Neut % (Auto) 77.9 H (45.5-73.1) % Lymph % (Auto) 11.8 L (18.3-44.2) % [place] % (Auto) 3.6 (2.6-8.5) % Eos % (Auto) 5.6 H (0-4.4) % Baso % (Auto) 0.7 (0.2-1.2) % Lymph # (Auto) 0.82 L (0.9-3.2) K/mm3 [place] # (Auto) 0.3 (0.1-0.6) K/mm3 Eos # (Auto) 0.4 H (0-0.3) K/mm3 Baso # (Auto) 0.1 (0.0-0.1) K/mm3 Abs Immat Gran (auto) 0.03 (0.00-0.031) K/mm3 Absolute Neuts (auto) 5.4 (1.3-6.7) K/mm3 Absolute Nucleated RBC 0.030 H (0.0-0.012) K/mm3 Nucleated RBC % 0.4 H (0.0-0.2) % PT 14.6 (11.1-14.7) Seconds INR 1.1 APTT 28.2 (22.3-36.8) Seconds D-Dimer 8.71 H (<0.48) ug/mL Sodium 137 (137-145) mmol/L Potassium 3.8 (3.4-5.0) mmol/L Chloride 101 (98-107) mmol/L Carbon Dioxide 25 (22-30) mmol/L Anion Gap 11 (4-12) mmol/L BUN 25 H D (9-20) mg/dL Creatinine 1.01 (0.7-1.3) mg/dL Estim Creat Clear Calc 51 ml/min Estimated GFR > 60 (59 - ) Glucose 97 (65-110) mg/dL Calcium 9.0 (8.4-10.2) mg/dL Total Bilirubin 0.6 (0.2-1.3) mg/dL AST 77 H (17-59) U/L ALT 70 H (6-50) U/L Alkaline Phosphatase 389 H (38-126) U/L Troponin I < 0.012 (0.000-0.034) ng/mL NT-Pro-B Natriuret Pep 2210 H (19.9-100) pg/mL Total Protein 6.0 L (6.3-8.2) g/dL Albumin 3.3 L (3.5-5.1) g/dL Lipase 91 (23-300) U/L Influenza A (RT-PCR) Positive A (Negative) Influenza B (RT-PCR) Negative (Negative) RSV (RT-PCR) Negative (Negative) SARS-CoV-2 RNA (RT-PCR) Negative (Negative) Discharge Plan Discharge Clinical Impression: Pleural effusion, Acute pericardial effusion, Hypoxia, Influenza A Patient Disposition: Left Against Medical Advice Condition: Serious Instructions: Influenza (DC), Pleural Effusion (DC), Pericardial Effusion (ED) Patient Language: Khmer Prescriptions: No Action oxycodone-acetaminophen [Percocet] 10-325 mg tablet 1 tablet PO Q6H PRN (Reason: pain) Qty: 120 0RF vitamin A 2,400 mcg Capsule 2,400 mcg PO 1700 ascorbate calcium (vitamin C) 500 mg Tablet 500 mg PO DAILY cholecalciferol (vitamin D3) [Vitamin D3] 125 mcg (5,000 unit) Tablet 125 mcg PO 1700 ferrous sulfate 325 mg (65 mg iron) tablet 325 mg PO BID esomeprazole magnesium [Nexium] 40 mg capsule,delayed release(DR/EC) 40 mg PO 1200 docusate sodium [Colace] 100 mg capsule 100 mg PO HS duloxetine 60 mg capsule,delayed release(DR/EC) 60 mg PO HS flecainide 100 mg tablet 100 mg PO BID atorvastatin 20 mg tablet 20 mg PO DAILY (DME) OneTouch Verio test strips Strip See Rx Instructions .Route Qty: 100 3RF Rx Instructions: to check blood Sugar once daily (DME) lancets [OneTouch Delica Lancets] 30 gauge misc See Rx Instructions .Route Qty: 100 3RF Rx Instructions: use to check blood sugar once daily metoprolol succinate 25 mg tablet extended release 24 hr 25 mg PO HS Patient Comments: started by vehicle cost engineer 08/17/2022. polyethylene glycol 3350 [Miralax] 17 gram/dose powder 17 g PO BID PRN (Reason: constipation) Qty: 850 11RF amlodipine 2.5 mg tablet 2.5 mg PO 1700 Qty: 90 3RF Lokelma 10 gram powder in packet 10 g PO DAILY Qty: 30 11RF Rx Instructions: mix with 4 oz of liquid and take once daily for high potassium morphine 15 mg tablet 15 mg PO BID PRN (Reason: pain) Qty: 60 0RF trazodone 50 mg tablet 100 mg PO QHS Qty: 60 11RF Follow-up/Referrals: Saw Ga MD [Primary Care Provider] -
[2024-08-31 20:20] VITALS: PULSE 72
[2024-08-31 20:21] VITALS: BP 157/77; PULSE 72; RESP 16; O2SAT 98
[2024-08-31 20:32] LABS: Lipase 91 U/L (23-300)
[2024-08-31 20:36] LABS: Partial Thromboplastin Time 28.2 Seconds (22.3-36.8)
[2024-08-31 20:37] LABS: INR 1.1; Prothrombin Time 14.6 Seconds (11.1-14.7)
[2024-08-31 20:45] LABS: NT Pro B Type Natriuretic Pept 2210 pg/mL (19.9-100); Troponin I < 0.012 ng/mL (0.000-0.034)
[2024-08-31 20:59] LABS: Influenza A QL RT-PCR Positive (Negative); Influenza B QL RT-PCR Negative (Negative); RSV RNA, RT-PCR Negative (Negative); SARS-CoV-2 RNA PCR Negative (Negative)
[2024-08-31 21:00] LABS: D Dimer 8.71 ug/mL (<0.48)
--- NOTE | 2024-08-31 22:30 | PC.NURSE ---
pt refusing admission. EDP Ly at bedside with japanese interprester to explain risks of signing out ama.
== END 2024-08-31 23:02 | disposition left against medical advice (07) ==
PROVIDERS: Student in an Organized Health Care Education/Training Program; Emergency Provider Physician Assistant; PCP Family Medicine
DX: J10.1 Influenza due to other identified influenza virus with other respiratory manifestations (principal); I30.9 Acute pericarditis, unspecified; J90 Pleural effusion, not elsewhere classified; Z20.822 Contact with and (suspected) exposure to COVID-19; Z98.890 Other specified postprocedural states; C61 Malignant neoplasm of prostate; C79.51 Secondary malignant neoplasm of bone; I48.0 Paroxysmal atrial fibrillation; I25.10 Atherosclerotic heart disease of native coronary artery without angina pectoris; I10 Essential (primary) hypertension; E78.2 Mixed hyperlipidemia; E11.9 Type 2 diabetes mellitus without complications; E66.3 Overweight; Z68.26 Body mass index [BMI] 26.0-26.9, adult; K21.9 Gastro-esophageal reflux disease without esophagitis; D64.9 Anemia, unspecified; Z86.16 Personal history of COVID-19; Z87.891 Personal history of nicotine dependence; Z79.899 Other long term (current) drug therapy; R94.31 Abnormal electrocardiogram [ECG] [EKG]
CPT/HCPCS: 36415; 71046; 71275; 80053; 83690; 83880; 84484; 85025; 85380; 85610; 85730; 87637; 93005; 99284; Q9967

== ENCOUNTER 2024-11-25 16:36 | Inpatient (IN) | payer MEDICARE, SELFPAY ==
[2024-11-25] VITALS (8 sets, daily range): BP systolic 115–132; BP diastolic 57–78; PULSE 60–144; RESP 14–24; TEMP 36.7–37.1; O2SAT 97–100; BMI 24.6
--- NOTE | ~2024-11-25 | XR_ITS ---
EXAMINATION: XR chest 2V Exam Date/Time: 11/25/2024 17:07 CDT HISTORY: PALPITATIONS Comparison: 08/31/2024 x-ray chest and CTPA. RESULT: Lines, tubes, and devices: None. Lungs and pleura: Segmental left basilar opacity. Patchy subsegmental bilateral lower lung opacities . Mild diffuse reticular opacities with indistinct vessels. Mild right and moderate left costophrenic angle blunting. Cardiomediastinal silhouette: Stable. Other: No acute osseous or upper abdominal finding. Diffuse sclerotic lesions in the visualized bone s. Stable compression deformities in the lower thoracic spine. IMPRESSION: Subsegmental atelectasis/consolidation in the left lung base. Patchy airspace opacities in the bilate ral lower lungs may represent edema or infection. Moderate left and small right pleural effusions. Os seous metastases. Reviewed, dictated and finalized at location [facility]. IMPRESSION: Subsegmental atelectasis/consolidation in the left lung base. Patchy airspace o pacities in the bilateral lower lungs may represent edema or infection. Moderat e left and small right pleural effusions. Osseous metastases.
--- OUTSIDE RECORDS SUMMARY | 2024-11-25 16:40 | XMS_ITS | Encounter Summary ---
Author Organization [facility] Address [address] [place] [address] Care Team Providers Care Natural Resources Technician Name Role Phone Saw Ga MD Primary Care Provider [phone] Encounter Details Date Type Department Care Team (Late st Contact Info) Description 01/26/[address] [facility] Trauma and General Surgery [address] [facility] [address] [place] [phone] Jim Gonzalez MD [address] [facility] [address] 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 diff 07/30/2024 07/30/2024 07/31/2024 7:00 PM SLIDE FASTENER REPAIRER R/O Respiratory 09/01/2024 09/01/2024 09/01/2024 3 :21 AM SLIDE FASTENER REPAIRER Influenza 09/01/2024 09/01/2024 09/09/2024 1:16 AM SLIDE FASTENER REPAIRER documented as of this encounter Care Teams Natural Resources Technician Relationship Specialty Start Date End Date Saw Ga MD [address] [place] [id number] PCP - General Family Practice 02/17/19 documented as of this encounter
--- OUTSIDE RECORDS SUMMARY | 2024-11-25 16:40 | XMS_ITS | Clinical Summary ---
Author Organization Unknown Care Team Providers Care Telephone Order Supervisor Name Role Phone STEPHAN SHARMA, ALICE Unavailable Unavailable TARYN TRAMMELL, CHAYA Unavailable Unavailable СВЕТЛАНА CHOUDHURYN, SAUL Unavailable Unavailable BLAIR PT, ADRIAN Unavailable Unavailable Payers Payer Name Policy Type Policy Number Effective Date Expira tion Date MEDICARE.[facility] [id number] Problems Condition Name Condition Details Condition Category Status Onset Date Resolution Date Last Treatment Date Treating Clinician Comments CAUDA EQUINA SYNDROME Active 10-29 00:00: 00 MALIGNANT NEOPLASM OF PROSTATE Active 10-29 00:00: 00 SECONDARY MALIGNANT NEOPLASM OF BONE Active 10-29 00:00: 00 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 10-29 00:00: 00 NEOPLASM RELATED PAIN (ACUTE) (CHRONIC) Active 10-29 00:00: 00 TYPE 2 DIABETES MELLITUS WITHOUT COMPLICATION S Active 10-29 00:00: 00 PAROXYSMAL ATRIAL FIBRILLATION Active 10-29 00:00: 00 UNSPECIFIED HYDRONEPHROS IS Active 10-29 00:00: 00 SPINAL STENOSIS, LUMBOSACRAL REGION Active 10-29 00:00: 00 UNSPECIFIED OSTEOARTHRIT IS, UNSPECIFIED SITE Active 10-29 00:00: 00 HYPOCALCEMIA Active 10-29 00:00: 00 GASTRO-ESOPH AGEAL REFLUX DISEASE WITHOUT ESOPHAGITIS Active 10-29 00:00: 00 SIRS OF NON-INFECTIO US ORIGIN W/O ACUTE ORGAN DYSFUNCTION Active 10-29 00:00: 00 PRSNL HX OF TIA (TIA), AND CEREB INFRC W/O RESID DEFICITS Active 10-29 00:00: 00 PERSONAL HISTORY OF NICOTINE DEPENDENCE Active 10-29 00:00: 00 FPC (CURRENT) USE OF SYSTEMIC STEROIDS Active - 00:00: 00 FPC (CURRENT) USE OF ORAL HYPOGLYCEMIC DRUGS Active 07-23 00:00: 00 MANAGER SECURITY AND SAFETY (CURRENT) USE OF OPIATE ANALGESIC Active 07-23 00:00: 00 Allergies, Adverse Reactions, Alerts Allergy Name Allergy Type Status Severity Reaction(s) Onset Date Inactive Date Treating Clinician Comments NO KNOWN ALLERGIES Propensity to adverse reactions Active 10-29 14:31: 34 Medications Ordered Medication Name Filled Medication Name Start Date Stop Date Current Medication? Ordering Clinician Indication Dosage Frequency Signature (SIG) Comments Components dexamethaso ne 4 mg tablet 10-24 00:00: 00 Yes [id number] CHEMO 1 tablet DAILY 1 tablet DAILY (route: oral) Med Classific ation: Endocrine furosemide 20 mg tablet 10-24 00:00: 00 Yes [id number] DIURETIC 1 tablet DAILY 1 tablet DAILY (route: oral) Med Classific ation: Cardiovas cular Therapy Agents metoprolol succinate ER 25 mg tablet,exte nded release 24 hr - 00:00: 00 Yes [id number] HTN 1 tablet DAILY 1 tablet DAILY (route: oral) Med Classific ation: Cardiovas cular Therapy Agents duloxetine 60 mg capsule,del ayed release 10-16 00:00: 00 10-29 00:00 :00 No [id number] Per instruc tions Per instructio ns (route: oral) Med Classific ation: Central Nervous System Agents metformin ER 500 mg tablet,exte nded release 24 hr - 00:00: 00 Yes [id number] DM2 1 tablet DAILY 1 tablet DAILY (route: oral) Med Classific ation: Endocrine lubiproston e 24 mcg capsule - 00:00: 00 Yes [id number] CONSTIPATIO N 1 capsule TWICE DAILY 1 capsule TWICE DAILY (route: oral) Med Classific ation: Gastroint estinal Therapy Agents trazodone 50 mg tablet - 00:00: 00 10-29 00:00 :00 No [id number] Per instruc tions Per instructio ns (route: oral) Med Classific ation: Central Nervous System Agents atorvastati n 20 mg tablet 10-13 00:00: 00 Yes [id number] CHOLESTEROL 1 tablet DAILY 1 tablet DAILY (route: oral) Med Classific ation: Cardiovas cular Therapy Agents amlodipine 2.5 mg tablet 10-11 00:00: 00 10-29 00:00 :00 No [id number] Per instruc tions TODOS LOS DAILY AT Per instructio ns TODOS LOS DAILY AT (route: oral) Med Classific ation: Cardiovas cular Therapy Agents Lokelma 10 gram oral powder packet 10-11 00:00: 00 10-29 00:00 :00 No [id number] Per instruc tions Per instructio ns (route: oral) Med Classific ation: Electroly te Balance-N utritiona l Products polyethylen e glycol 3350 17 gram/dose oral powder 10-11 00:00: 00 Yes [id number] CONSTIPATIO N Per instruc tions DAILY Per instructio ns DAILY (route: oral) Med Classific ation: Gastroint estinal Therapy Agents acetaminoph en 500 mg tablet 10-29 00:00: 00 Yes [id number] PAIN 1 tablet EVERY 6 HOURS 1 tablet EVERY 6 HOURS (route: oral) Med Classific ation: Analgesic , Anti-infl ammatory or Antipyret ic Antacid 200 mg (as calcium carbonate 500 mg) chewable tablet 10-29 00:00: 00 Yes [id number] SUPPLEMENT 2 tablet 2 TIMES DAILY 2 tablet 2 TIMES DAILY (route: oral) Med Classific ation: Gastroint estinal Therapy Agents bisacodyl 5 mg tablet,neda yed release 10-29 00:00: 00 Yes [id number] CONSTIPATIO N 1 tablet DAILY 1 tablet DAILY (route: oral) Med Classific ation: Gastroint estinal Therapy Agents Compazine 10 mg tablet 10-29 00:00: 00 Yes [id number] NAUSEA 1 tablet EVERY 6 HOURS 1 tablet EVERY 6 HOURS (route: oral) Med Classific ation: Gastroint estinal Therapy Agents docusate sodium 100 mg capsule 10-29 00:00: 00 Yes [id number] CONSTIPATIO N 1 capsule DAILY 1 capsule DAILY (route: oral) Med Classific ation: Gastroint estinal Therapy Agents esomeprazol e magnesium 40 mg capsule,del ayed release 10-29 00:00: 00 Yes [id number] GERD 1 capsule DAILY 1 capsule DAILY (route: oral) Med Classific ation: Gastroint estinal Therapy Agents flecainide 100 mg tablet 10-29 00:00: 00 Yes [id number] AFIB 1 tablet DAILY 1 tablet DAILY (route: oral) Med Classific ation: Cardiovas cular Therapy Agents K-Phos Original 500 mg soluble tablet 10-29 00:00: 00 Yes [id number] SUPPLEMENT 1 tablet 2 TIMES DAILY 1 tablet 2 TIMES DAILY (route: oral) Med Classific ation: Genitouri nary Therapy lidocaine 5 % topical patch 10-29 00:00: 00 Yes [id number] BACK PAIN 1 adhesiv e patch, medicat ed EVERY 12 HOURS 1 adhesive patch, medicated EVERY 12 HOURS (route: topical) Med Classific ation: Dermatolo gical oxycodone 10 mg tablet 10-29 00:00: 00 Yes [id number] PAIN 1 tablet EVERY 6 HOURS 1 tablet EVERY 6 HOURS (route: oral) Med Classific ation: Analgesic , Anti-infl ammatory or Antipyret ic Senna Plus 8.6 mg-50 mg capsule 10-29 00:00: 00 Yes [id number] CONSTIPATIO N 2 capsule 2 TIMES DAILY 2 capsule 2 TIMES DAILY (route: oral) Med Classific ation: Gastroint estinal Therapy Agents Vital Signs Vital Name Observation Time Observation Value Commen ts Temperature 2024-11-13 15:38:00.000 98.7 [degF] Temperature 2024-11-06 10:39:33.000 98.4 [degF] Temperature 2024-10-29 14:56:00.000 99 [degF] BMI (%) 2024-11-13 15:38:00.000 25 kg/m2 BMI (%) 2024-10-29 14:56:00.000 25 kg/m2 Height 2024-11-13 15:38:00.000 67 [in_us] Height 2024-10-29 14:56:00.000 67 [in_us] Pulse 2024-11-13 15:38:00.000 84 /min Pulse 2024-11-06 10:39:39.000 86 /min Pulse 2024-10-29 14:56:00.000 84 /min O2 Saturation (%) 2024-11-13 15:38:00.000 97 % O2 Saturation (%) 2024-10-29 14:56:00.000 94 % Respirations 2024-11-13 15:38:00.000 16 /min Respirations 2024-11-06 10:39:20.000 18 /min Respirations 2024-10-29 14:56:00.000 18 /min Weight (lbs) 2024-11-13 15:38:00.000 160 [lb_av] Weight (lbs) 2024-10-29 14:56:00.000 164 [lb_av] Systolic Blood Pressure 2024-11-13 15:38:00.000 128 mm [Hg] Systolic Blood Pressure 2024-11-06 10:39:16.000 134 mm [Hg] Systolic Blood Pressure 2024-10-29 14:56:00.000 154 mm [Hg] Diastolic Blood Pressure 2024-11-13 15:38:00.000 60 mm [Hg] Diastolic Blood Pressure 2024-11-06 10:39:16.000 66 mm [Hg] Diastolic Blood Pressure 2024-10-29 14:56:00.000 78 mm [Hg] Plan of Treatment Planned Activity Planned Date Details Comments Future Scheduled Test RN TO OBSE RVE, ASSESS, EVALUATE, AND DEVELOP AN INDIVIDUALIZED PLAN OF CARE. AGENCY MAY ACCEPT ORDERS FROM CONSULTING PHYSICIANS STEPHAN. RN TO OBSERVE AND ASSESS, CISCO ENGINEER/DATA ANALYST ETL DEVELOPER TO OBSERVE FOR RISK FOR FALLS AND INSTRUCT IN FALL PREVENTION, HOME SAFETY, MEDICATION MANAGEMENT, INFECTION PREVENTION, AND NUTRITION MANAGEMENT. RN/CISCO ENGINEER/DATA ANALYST ETL DEVELOPER NURSE MAY PERFORM O2 SATURATION LEVEL ON ADMISSION AND PRN FOR 1 FOR RN TO ASSESS/CISCO ENGINEER TO OBSERVE PATIENT, WITH NOTIFICATION TO THE PHYSICIAN IF SATURATION IS 90% IN THE ABSENCE OF MORE SPECIFIC PARAMETERS FROM THE PHYSICIAN. AGENCY MAY PERFORM A RESUMPTION OF CARE VISIT FOLLOWING ANY HOSPITAL ADMISSION. RN/CISCO ENGINEER/DATA ANALYST ETL DEVELOPER TO MONITOR CO-MORBID CONDITIONS LISTED ON THE PLAN OF CARE AND ANY NEW CONDITIONS THAT PRESENT THEMSELVES DURING THIS EPISODE TO IDENTIFY CHANGES AND INTERVENE TO MINIMIZE COMPLICATIONS. [code = RN TO OBSERVE, ASSESS, EVALUATE, AND DEVELOP AN INDIVIDUALIZED PLAN OF CARE. AGENCY MAY ACCEPT ORDERS FROM CONSULTING PHYSICIANS STEPHAN. RN TO OBSERVE AND ASSESS, CISCO ENGINEER/DATA ANALYST ETL DEVELOPER TO OBSERVE FOR RISK FOR FALLS AND INSTRUCT IN FALL PREVENTION, HOME SAFETY, MEDICATION MANAGEMENT, INFECTION PREVENTION, AND NUTRITION MANAGEMENT. RN/CISCO ENGINEER/DATA ANALYST ETL DEVELOPER NURSE MAY PERFORM O2 SATURATION LEVEL ON ADMISSION AND PRN FOR 1 FOR RN TO ASSESS/CISCO ENGINEER TO OBSERVE PATIENT, WITH NOTIFICATION TO THE PHYSICIAN IF SATURATION IS 90% IN THE ABSENCE OF MORE SPECIFIC PARAMETERS FROM THE PHYSICIAN. AGENCY MAY PERFORM A RESUMPTION OF CARE VISIT FOLLOWING ANY HOSPITAL ADMISSION. RN/CISCO ENGINEER/DATA ANALYST ETL DEVELOPER TO MONITOR CO-MORBID CONDITIONS LISTED ON THE PLAN OF CARE AND ANY NEW CONDITIONS THAT PRESENT THEMSELVES DURING THIS EPISODE TO IDENTIFY CHANGES AND INTERVENE TO MINIMIZE COMPLICATIONS.] Future Scheduled Test MEDICATION MANAGEMENT; RN/CISCO ENGINEER/DATA ANALYST ETL DEVELOPER TO REVIEW MEDICATIONS FOR INTERACTIONS, EFFECTIVENESS OF DRUG THERAPY, AND SIGNS/SYMPTOMS OF ADVERSE REACTIONS. MAY INSTRUCT AND REINFORCE MEDICATION TEACHING RELATED TO THE USE OF MEDICATIONS, DOSAGE, FREQUENCY, PURPOSE, SIDE EFFECTS, AND TO REPORT COMPLICATIONS. [code = MEDICATION MANAGEMENT; RN/CISCO ENGINEER/DATA ANALYST ETL DEVELOPER TO REVIEW MEDICATIONS FOR INTERACTIONS, EFFECTIVENESS OF DRUG THERAPY, AND SIGNS/SYMPTOMS OF ADVERSE REACTIONS. MAY INSTRUCT AND REINFORCE MEDICATION TEACHING RELATED TO THE USE OF MEDICATIONS, DOSAGE, FREQUENCY, PURPOSE, SIDE EFFECTS, AND TO REPORT COMPLICATIONS.] Future Scheduled Test RISK FOR H OSPITALIZATION; RN TO ASSESS/TEACH, DATA ANALYST ETL DEVELOPER/CISCO ENGINEER TO OBSERVE/TEACH PATIENT/CAREGIVER ON RISK FOR HOSPITALIZATION/EMERGENCY ROOM VISITS, TEACH SIGNS AND SYMPTOMS THAT PUT PATIENT AT RISK, WHEN TO NOTIFY NURSE/PHYSICIAN OF COMPLICATIONS/DECLINE, AND WHEN TO CALL 911. [code = RISK FOR HOSPITALIZATION; RN TO ASSESS/TEACH, DATA ANALYST ETL DEVELOPER/CISCO ENGINEER TO OBSERVE/TEACH PATIENT/CAREGIVER ON RISK FOR HOSPITALIZATION/EMERGENCY ROOM VISITS, TEACH SIGNS AND SYMPTOMS THAT PUT PATIENT AT RISK, WHEN TO NOTIFY NURSE/PHYSICIAN OF COMPLICATIONS/DECLINE, AND WHEN TO CALL 911.] Future Scheduled Test CARDIOVASC ULAR SYSTEM; RN TO ASSESS/TEACH, CISCO ENGINEER/DATA ANALYST ETL DEVELOPER TO OBSERVE/TEACH RELATED TO ALTERED CARDIOVASCULAR STATUS TO MINIMIZE COMPLICATIONS AND REDUCE HOSPITALIZATION. [code = CARDIOVASCULAR SYSTEM; RN TO ASSESS/TEACH, CISCO ENGINEER/DATA ANALYST ETL DEVELOPER TO OBSERVE/TEACH RELATED TO ALTERED CARDIOVASCULAR STATUS TO MINIMIZE COMPLICATIONS AND REDUCE HOSPITALIZATION.] Future Scheduled Test PAIN MANAG EMENT; RN TO ASSESS AND TEACH, DATA ANALYST ETL DEVELOPER/CISCO ENGINEER TO OBSERVE AND TEACH AND PROVIDE EDUCATION ON PAIN MANAGEMENT TECHNIQUES. [code = PAIN MANAGEMENT; RN TO ASSESS AND TEACH, DATA ANALYST ETL DEVELOPER/CISCO ENGINEER TO OBSERVE AND TEACH AND PROVIDE EDUCATION ON PAIN MANAGEMENT TECHNIQUES.] Future Scheduled Test DIABETES M ANAGEMENT; RN TO ASSESS AND TEACH, DATA ANALYST ETL DEVELOPER/CISCO ENGINEER TO OBSERVE AND TEACH INSTRUCTIONS OF DIABETIC CARE TO INCLUDE: DIET DIABETIC, SKIN CARE, SIGNS AND SYMPTOMS OF HYPO/HYPERGLYCEMIA, PROPER ADMINISTRATION OF DIABETIC MEDICATION. RN/DATA ANALYST ETL DEVELOPER/CISCO ENGINEER TO INSTRUCT ON DIABETIC FOOT CARE AND MONITOR FOR SKIN LESIONS ON LOWER EXTREMITIES. BLOOD GLUCOSE TESTING PRN FREQ. RN TO ASSESS AND TEACH, DATA ANALYST ETL DEVELOPER/CISCO ENGINEER TO OBSERVE AND TEACH PATIENT/CAREGIVER ABILITY TO PERFORM AND RECORD BLOOD GLUCOSE TESTING ORDERED AND TO REPORT ABNORMAL FINDINGS TO PHYSICIAN. RN/DATA ANALYST ETL DEVELOPER/CISCO ENGINEER MAY PERFORM BLOOD GLUCOSE TEST NEEDED. NO ORDER TO CHECK BGL RN/DATA ANALYST ETL DEVELOPER/CISCO ENGINEER TO INSTRUCT PATIENT ON IMPORTANCE OF HGBA1C MONITORING, KIDNEY FUNCTION TEST, EYE AND FOOT EXAMS. [code = DIABETES MANAGEMENT; RN TO ASSESS AND TEACH, DATA ANALYST ETL DEVELOPER/CISCO ENGINEER TO OBSERVE AND TEACH INSTRUCTIONS OF DIABETIC CARE TO INCLUDE: DIET DIABETIC, SKIN CARE, SIGNS AND SYMPTOMS OF HYPO/HYPERGLYCEMIA, PROPER ADMINISTRATION OF DIABETIC MEDICATION. RN/DATA ANALYST ETL DEVELOPER/CISCO ENGINEER TO INSTRUCT ON DIABETIC FOOT CARE AND MONITOR FOR SKIN LESIONS ON LOWER EXTREMITIES. BLOOD GLUCOSE TESTING PRN FREQ. RN TO ASSESS AND TEACH, DATA ANALYST ETL DEVELOPER/CISCO ENGINEER TO OBSERVE AND TEACH PATIENT/CAREGIVER ABILITY TO PERFORM AND RECORD BLOOD GLUCOSE TESTING ORDERED AND TO REPORT ABNORMAL FINDINGS TO PHYSICIAN. RN/DATA ANALYST ETL DEVELOPER/CISCO ENGINEER MAY PERFORM BLOOD GLUCOSE TEST NEEDED. NO ORDER TO CHECK BGL RN/DATA ANALYST ETL DEVELOPER/CISCO ENGINEER TO INSTRUCT PATIENT ON IMPORTANCE OF HGBA1C MONITORING, KIDNEY FUNCTION TEST, EYE AND FOOT EXAMS.] Future Scheduled Test GENITOURIN FRANCIS MANAGEMENT; RN TO ASSESS AND TEACH, CISCO ENGINEER/DATA ANALYST ETL DEVELOPER TO OBSERVE AND TEACH RELATED TO ALTERED GENITOURINARY STATUS TO MINIMIZE COMPLICATIONS AND REDUCE HOSPITALIZATION. [code = GENITOURINARY MANAGEMENT; RN TO ASSESS AND TEACH, CISCO ENGINEER/DATA ANALYST ETL DEVELOPER TO OBSERVE AND TEACH RELATED TO ALTERED GENITOURINARY STATUS TO MINIMIZE COMPLICATIONS AND REDUCE HOSPITALIZATION.] Future Scheduled Test URINARY MO LECULAR TESTING PROTOCOL UP TO 2 PRN RN/CISCO ENGINEER/DATA ANALYST ETL DEVELOPER VISITS MAY BE PERFORMED FOR S/S OF UTI. RN TO ASSESS, CISCO ENGINEER/DATA ANALYST ETL DEVELOPER TO OBSERVE INITIATION OF UTI PROTOCOL. RN/DATA ANALYST ETL DEVELOPER/CISCO ENGINEER TO INSTRUCT PATIENT AND/OR CAREGIVER ON S/S OF UTI TO REPORT TO RN/DATA ANALYST ETL DEVELOPER/CISCO ENGINEER IF NEW OR WORSENING SYMPTOMS. DRINK PLENTY OF WATER THROUGHOUT THE DAY TO MAINTAIN HYDRATION (UNLESS CONTRAINDICATED.) URINATE WHEN THE URGE IS FELT, DO NOT WAIT. WASH GENITALS DAILY. WIPE FROM FRONT TO BACK AFTER HAVING A BOWEL MOVEMENT. RN/DATA ANALYST ETL DEVELOPER/CISCO ENGINEER TO OBTAIN MOLECULAR URINE TESTING BY OPTION 1 OR OPTION 2 (OPTION 1) RN/DATA ANALYST ETL DEVELOPER/CISCO ENGINEER TO OBTAIN U/A WITH REFLEX TO UTI PANEL (MOLECULAR) VIA CLEAN CATCH URINE AND IF UNABLE TO OBTAIN MAY PERFORM AN IN AND OUT CATH. IF PATIENT HAS INDWELLING CATHETER MAY OBTAIN FROM SAMPLING PORT. (OPTION 2) RN/DATA ANALYST ETL DEVELOPER/CISCO ENGINEER TO OBTAIN UTI PANEL (MOLECULAR) VIA SWAB COLLECTION METHOD FROM ADULT BRIEF/DIAPER OR PAD IF PATIENT IS INCONTINENT. NOTIFY PROVIDER OF RESULTS AND OBTAIN FURTHER ORDERS. [code = URINARY MOLECULAR TESTING PROTOCOL UP TO 2 PRN RN/CISCO ENGINEER/DATA ANALYST ETL DEVELOPER VISITS MAY BE PERFORMED FOR S/S OF UTI. RN TO ASSESS, CISCO ENGINEER/DATA ANALYST ETL DEVELOPER TO OBSERVE INITIATION OF UTI PROTOCOL. RN/DATA ANALYST ETL DEVELOPER/CISCO ENGINEER TO INSTRUCT PATIENT AND/OR CAREGIVER ON S/S OF UTI TO REPORT TO RN/DATA ANALYST ETL DEVELOPER/CISCO ENGINEER IF NEW OR WORSENING SYMPTOMS. DRINK PLENTY OF WATER THROUGHOUT THE DAY TO MAINTAIN HYDRATION (UNLESS CONTRAINDICATED.) URINATE WHEN THE URGE IS FELT, DO NOT WAIT. WASH GENITALS DAILY. WIPE FROM FRONT TO BACK AFTER HAVING A BOWEL MOVEMENT. RN/DATA ANALYST ETL DEVELOPER/CISCO ENGINEER TO OBTAIN MOLECULAR URINE TESTING BY OPTION 1 OR OPTION 2 (OPTION 1) RN/DATA ANALYST ETL DEVELOPER/CISCO ENGINEER TO OBTAIN U/A WITH REFLEX TO UTI PANEL (MOLECULAR) VIA CLEAN CATCH URINE AND IF UNABLE TO OBTAIN MAY PERFORM AN IN AND OUT CATH. IF PATIENT HAS INDWELLING CATHETER MAY OBTAIN FROM SAMPLING PORT. (OPTION 2) RN/DATA ANALYST ETL DEVELOPER/CISCO ENGINEER TO OBTAIN UTI PANEL (MOLECULAR) VIA SWAB COLLECTION METHOD FROM ADULT BRIEF/DIAPER OR PAD IF PATIENT IS INCONTINENT. NOTIFY PROVIDER OF RESULTS AND OBTAIN FURTHER ORDERS.] Future Scheduled Test CANCER MAN AGEMENT; RN TO ASSESS AND TEACH, DATA ANALYST ETL DEVELOPER/CISCO ENGINEER TO OBSERVE AND TEACH AND PROVIDE EDUCATION ON CANCER. [code = CANCER MANAGEMENT; RN TO ASSESS AND TEACH, DATA ANALYST ETL DEVELOPER/CISCO ENGINEER TO OBSERVE AND TEACH AND PROVIDE EDUCATION ON CANCER.] Future Scheduled Test FALL REDUC TION MANAGEMENT; RN TO ASSESS AND OBSERVE, CISCO ENGINEER/DATA ANALYST ETL DEVELOPER TO OBSERVE FALL RISK FACTORS AND EDUCATE PATIENT/CAREGIVER ON STRATEGIES TO MINIMIZE THE RISK OF FALLING. [code = FALL REDUCTION MANAGEMENT; RN TO ASSESS AND OBSERVE, CISCO ENGINEER/DATA ANALYST ETL DEVELOPER TO OBSERVE FALL RISK FACTORS AND EDUCATE PATIENT/CAREGIVER ON STRATEGIES TO MINIMIZE THE RISK OF FALLING.] Future Scheduled Test HOME HEALT H AIDE SERVICE FOR ASSISTANCE WITH PERSONAL CARE, HYGIENE AND ACTIVITIES OF DAILY LIVING. [code = HOME HEALTH AIDE SERVICE FOR ASSISTANCE WITH PERSONAL CARE, HYGIENE AND ACTIVITIES OF DAILY LIVING.] Future Scheduled Test PRN VISITS ; NUMBER OF RN/CISCO ENGINEER/DATA ANALYST ETL DEVELOPER VISITS: 1 RN/CISCO ENGINEER/DATA ANALYST ETL DEVELOPER TO PERFORM: SCRUBBER MACHINE TENDER FOR THE FOLLOWING REASONS: URINE MOLECULAR [code = PRN VISITS; NUMBER OF RN/CISCO ENGINEER/DATA ANALYST ETL DEVELOPER VISITS: 1 RN/CISCO ENGINEER/DATA ANALYST ETL DEVELOPER TO PERFORM: SCRUBBER MACHINE TENDER FOR THE FOLLOWING REASONS: URINE MOLECULAR ] Goal 2024-11-13 Patient Goal - D ECREASED PAIN AND ASSISTANCE WITH BATHING Goal Patient Goal - D ECREASED PAIN AND ASSISTANCE WITH BATHING Goal Provider Goal - A PLAN OF CARE WILL BE ESTABLISHED THAT MEETS THE PATIENTS NEEDS. PATIENT WILL DEMONSTRATE OXYGEN SATURATION WITHIN NORMAL LIMITS OR PATIENTS OPTIMAL LEVEL ESTABLISHED BY THE PHYSICIAN THROUGHOUT CARE. CHANGES TO CO-MORBID CONDITIONS AND ANY NEW CONDITIONS WILL BE IDENTIFIED AND REPORTED TO THE PHYSICIAN. Goal Provider Goal - PATIENT/CAREGIVER TO VERBALIZE, AND CONSISTENTLY DEMONSTRATE EFFECTIVE, SAFE MANAGEMENT OF MEDICATION INCLUDING KNOWLEDGE OF EFFECTIVENESS, POTENTIAL SIDE EFFECTS AND DRUG REACTIONS AND WHEN TO CONTACT THE APPROPRIATE CARE PROVIDER. PATIENT/CAREGIVER WILL BE ABLE TO VERBALIZE UNDERSTANDING OF MEDICATION REGIMEN AND ACCURATELY TAKE MEDICATIONS PRESCRIBED WITHOUT ADVERSE EFFECTS BY EOE Goal Provider Goal - PATIENT/CAREGIVER WILL VERBALIZE UNDERSTANDING OF SIGNS AND SYMPTOMS THAT PUT THE PATIENT AT RISK FOR HOSPITALIZATION /EMERGENCY ROOM VISITS, WHEN TO NOTIFY NURSE/PHYSICIAN OF COMPLICATIONS/DECLINE AND WHEN TO CALL 911. Goal Provider Goal - PATIENT / CAREGIVER WILL VERBALIZE/DEMONSTRATE UNDERSTANDING OF MEASURES TO MANAGE ALTERED CARDIOVASCULAR STATUS BY EOE. Goal Provider Goal - PATIENT / CAREGIVER WILL VERBALIZE / DEMONSTRATE UNDERSTANDING OF PAIN CONTROL MEASURES BY EOE Goal Provider Goal - PATIENT / CAREGIVER WILL VERBALIZE / DEMONSTRATE AN ABILITY TO ADHERE TO SELF-MANAGEMENT OF DIABETES MANAGEMENT BY EOE. Goal Provider Goal - PATIENT / CAREGIVER WILL VERBALIZE/DEMONSTRATE UNDERSTANDING OF MEASURES TO MANAGE ALTERED GENITOURINARY STATUS BY END OF EPISODE. Goal Provider Goal - PATIENT WILL DEMONSTRATE IMPROVEMENT IN S/S OF UTI TO AVOID HOSPITALIZATION. Goal Provider Goal - PATIENT / CAREGIVER WILL VERBALIZE/DEMONSTRATE UNDERSTANDING OF MEASURES TO MINIMIZE COMPLICATIONS AND REDUCE HOSPITALIZATION RELATED TO CANCER BY END OF EPISODE. Goal Provider Goal - PATIENT/CAREGIVER WILL VERBALIZE/DEMONSTRATE UNDERSTANDING OF FALL RISK FACTORS AND IMPLEMENT STRATEGIES TO MINIMIZE FALL RISK. PATIENT/CAREGIVER WILL VERBALIZE/DEMONSTRATE AN ABILITY TO ADHERE TO FALL REDUCTION SELF-MANAGEMENT AND LIFE-STYLE CHANGES BY EOE Goal Provider Goal - PATIENT WILL RECEIVE ASSISTANCE WITH PERSONAL CARE AND HYGIENE AND OTHER ACTIVITIES OF DAILY LIVING NEEDED. Goal Provider Goal - Encounters Start Date/Time End Date/Time Encounter Type Admission Type Attending [facility] Care Department Encounter ID Discharge Date Discharge Status Discharge Condition Discharge Reason Percent Goals Met 2024-10-29 00:00:00 2024-12-27 00:00:00 Outpatient NEW ADMISSION [facility] [id number] 88.24
--- OUTSIDE RECORDS SUMMARY | 2024-11-25 16:40 | XMS_ITS | Encounter Summary ---
Author Organization [facility] Address [address] [place] [address] Care Team Providers Care Service Tech/Welder Name Role Phone Saw Ga MD Primary Care Provider [phone] Encounter Details Date Type Department Care Team (Late st Contact Info) Description 01/13/2006 Outpatient Historical [facility] [place] [address] [place] [id number] Cervical Spondylosis without Myelopathy (Primary Dx) Social History Tobacco Use Types Packs/Day Years Used Date Smoking Tobacco: Never Assessed Sex and Gender Information Value Date Recorded Sex Assigned at Not on file Legal Sex Male 3:17 AM REEL WINDER Gender Identity Not on file Sexual Orientation Not on file documented as of this encounter Plan of Treatment Not on file documented as of this encounter Visit Diagnoses Diagnosis Cervical spondylosis without myelopathy- Primary documented in this encounter Additional Health Concerns Infection Onset Date Last Indicated Resolved Time R/O C. diff 07/30/2024 07/30/2024 07/31/2024 7:00 PM REEL WINDER R/O Respiratory 09/01/2024 09/01/2024 09/01/2024 3 :21 AM REEL WINDER Influenza 09/01/2024 09/01/2024 09/09/2024 1:1 6 AM REEL WINDER documented as of this encounter Care Teams Service Tech/Welder Relationship Specialty Start Date End Date Saw Ga MD [address] [place] [phone] PCP - General Family Practice 02/17/19 documented as of this encounter
--- OUTSIDE RECORDS SUMMARY | 2024-11-25 16:40 | XMS_ITS | Encounter Summary ---
Author Organization [employer] Address [address] [place] [address] Care Team Providers Care Milking System Installer Name Role Phone Saw Ga MD Primary Care Provider [phone] Encounter Details Date Type Department Care Team (Late st Contact Info) Description 01/06/2006 Outpatient Historical [facility] Patrick Mohan MD [address] [place] [address] [place] [address] Er, Authorized P NO ADDRESS ON FILE Swelling of Limb (Primary Dx) Social History Tobacco Use Types Packs/Day Years Used Date Smoking Tobacco: Never Assessed Sex and Gender Information Value Date Recorded Sex Assigned at Not on file Legal Sex Male 3:17 AM [employer] Gender Identity Not on file Sexual Orientation [...] ORDERABLES Final Resu lt Performing Organization Address [facility] de Phone Number INTERFACE SYSTEM Refer to clinic/hospital department * CBC WITH DIFFERENTIAL (01/06/2006 5:15 PM CDT) Pathologist [facility] WBC 7.2 4.0 - 9.8 K/uL INTERFACE [...] ORDERABLES Final Resu lt Performing Organization Address [facility] de Phone Number INTERFACE SYSTEM Refer to clinic/hospital department * C-REACTIVE PROTEIN (01/06/2006 5:15 PM CDT) CRP 0.7 0.0 - 0.8 mg/dL INTERFACE SYSTEM 01/06/2006 5:15 PM CDT Patrick Mohan MD CHEMISTRY ORDERABLES Final Resul t Performing Organization Address [facility] Phone Number INTERFACE SYSTEM Refer to [...] ORDERABLES Final Resul t Performing Organization Address [facility] Phone Number INTERFACE SYSTEM Refer to clinic/hospital department documented in this encounter Visit Diagnoses Diagnosis Swelling of limb- Primary documented in this encounter Additional Health Concerns Infection Onset Date Last Indicated Resolved Time R/O C. diff 07/30/2024 07/30/2024 07/31/2024 7:00 PM [employer] R/O Respiratory 09/01/2024 09/01/2024 09/01/2024 3 :21 AM [employer] Influenza 09/01/2024 09/01/2024 09/09/2024 1:16 AM [employer] documented as of this encounter Care Teams Milking System Installer Relationship Specialty Start Date End Date Saw Ga MD [address] [place] [address] PCP - General Family Practice 02/17/19 documented as of this encounter
--- OUTSIDE RECORDS SUMMARY | 2024-11-25 16:40 | XMS_ITS ---
Author Organization [facility] Address [address] [place] [address] Care Team Providers Care Rehab Therapy Manager Name Role Phone Saw Ga MD Primary Care Provider [phone] Active Problems Problem Noted Date Diagnosed Date Influenza 09/01/2024 Acute hypoxemic respiratory failure 09/01/2024 Bilateral pleural effusion 09/01/2024 Sepsis 09/01/2024 Hydroureter on left 08/01/2024 Right inguinal hernia [...] Automatic Entry Manual Entr y Effective Dose 23.99 mSv 23.99 mSv 0 mSv Total DLP 2,410.03 DLP 2,410.03 DLP 0 DLP CTDIvol Max 36.63 mGy 36.63 mGy 0 mGy CTDIvol Min 7.98 mGy 7.98 mGy 0 mGy
--- OUTSIDE RECORDS SUMMARY | 2024-11-25 16:40 | XMS_ITS | Encounter Summary ---
Author Organization [employer] Address 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 diff 07/30/2024 07/30/2024 07/31/2024 7:00 PM ELECTRICAL AUTOMATION ENGINEER R/O Respiratory 09/01/2024 09/01/2024 09/01/2024 3 :21 AM ELECTRICAL AUTOMATION ENGINEER Influenza 09/01/2024 09/01/2024 09/09/2024 1:16 AM ELECTRICAL AUTOMATION ENGINEER documented as of this encounter Care Teams Separations Scientist Relationship Specialty Start Date End Date Saw Ga MD [address] [place] [phone] PCP - General Family Practice 02/17/19 documented as of this encounter
--- OUTSIDE RECORDS SUMMARY | 2024-11-25 16:40 | XMS_ITS | Encounter Summary ---
Author Organization [employer] Address 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 diff 07/30/2024 07/30/2024 07/31/2024 7:00 PM SURVEILLANCE MANAGER R/O Respiratory 09/01/2024 09/01/2024 09/01/2024 3 :21 AM SURVEILLANCE MANAGER Influenza 09/01/2024 09/01/2024 09/09/2024 1:16 AM SURVEILLANCE MANAGER documented as of this encounter Care Teams Registered Nurse Practitioner Relationship Specialty Start Date End Date Saw Ga MD [address] [place] [phone] PCP - General Family Practice 02/17/19 documented as of this encounter
--- OUTSIDE RECORDS SUMMARY | 2024-11-25 16:40 | XMS_ITS | CONTINUITY OF CARE DOCUMENT ---
Author Name jimmy marquez Address Unknown Organization [facility] Address [id number] [place] [address] [address] [place] [address] Phone [phone] Care Team Providers Care Dry Placer Machine Operator Name Role Phone jimmy marquez Unavailable Unavailable
--- OUTSIDE RECORDS SUMMARY | 2024-11-25 16:40 | XMS_ITS | Encounter Summary ---
Author Organization [facility] Address [address] [place] [address] Care Team Providers Care Rubber Liner Name Role Phone Saw Ga MD Primary Care Provider [phone] Encounter Details Date Type Department Care Team (Late st Contact Info) Description 01/02/2006 Outpatient Historical [facility] Trauma and General Surgery [address] [facility] [address] [id number] [place] [address] [place] [address] Social History Tobacco Use Types Packs/Day Years Used Date Smoking Tobacco: Never Assessed Sex and Gender Information Value Date Recorded Sex Assigned at Not on file Legal Sex Male 3:17 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 diff 07/30/2024 07/30/2024 07/31/2024 7:00 PM BENZENE OPERATOR R/O Respiratory 09/01/2024 09/01/2024 09/01/2024 3 :21 AM BENZENE OPERATOR Influenza 09/01/2024 09/01/2024 09/09/2024 1:16 AM BENZENE OPERATOR documented as of this encounter Care Teams Rubber Liner Relationship Specialty Start Date End Date Saw Ga MD [address] [place] [phone] PCP - General Family Practice 02/17/19 documented as of this encounter
--- OUTSIDE RECORDS SUMMARY | 2024-11-25 16:40 | XMS_ITS | Clinical Summary ---
Author Organization [facility] Administrative Offices Address [address] [place] [address] Care Team Providers Care Director Targeted Marketing Name Role Phone Saw Ga MD Primary Care Provider [phone] Allergies No known active allergies Medications metFORMIN (GLUCOPHAGE) 1,000 mg tablet Take 1,000 mg by mouth daily with breakfast. Active atorvastatin (LIPITOR) 20 mg tablet Take 20 mg by mouth daily. 2 Active DULoxetine (CYMBALTA) 60 mg Capsule, Delayed Release(E.C.) Take 60 mg by mouth daily. 2 Active esomeprazole (NexIUM) 40 mg Capsule, Delayed Release(E.C.) Take 40 mg by mouth daily. 2 Active flecainide (TAMBOCOR) 100 mg tablet Take 100 mg by mouth 2 times daily. 2 Active clotrimazole (LOTRIMIN) 1 % Cream Apply to affected area 2 times daily. 60 Gram 1 4 Active polyethylene glycol 3350 (MIRALAX) 17 [...] (650 mg) by mouth 4 times daily. 5 Active amLODIPine (NORVASC) 2.5 mg tablet Take 2.5 mg by mouth daily. Active HYDROcodone-acetam inophen (NORCO) 5-325 mg tablet Take 1 Tablet by mouth every 6 hours as needed for Pain. 4 Active morphine (MS CONTIN) 15 mg Controlled Release tablet Take 15 mg by mouth every 12 hours. 4 Active sodium zirconium cyclosilicate (Lokelma) 10 gram Powder in Packet HOLD until you follow up with your PCP 1 Packet 5 Active Lidocaine 4 % Adhesive Patch, Medicated Apply to affected area. Apply only once for up to 12 hours within a 24 hour period. Patches may be cut into smaller sizes with scissors prior to the removal of the release liner. Clothing may be worn over the area of application. 20 Patch 1 5 Active Active Problems Problem Noted Date Diagnosed Date [...] Encounters Date Type Department Care Team Description 11/17/2024 Orders Only [facility] Oncology and Hematology - [place] [address] [place] [address] Trent Nicholas MD Prostate cancer metastatic to bone ([facility]/HCC) 11/03/2024 Orders Only [facility] Oncology and Hematology - [place] [address] [place] [address] Trent Nicholas MD Prostate cancer metastatic to bone ([facility]/HCC) 10/20/2024 Orders Only [facility] Oncology and Hematology - [place] [address] [place] [address] Trent Nicholas MD Prostate cancer metastatic to bone (CMS/HCC) 10/08/2024 External Device Data STL ABSTRACTION Provider, Abstract 10/06/2024 Orders Only [facility] Oncology and Hematology - [place] [address] [place] [address] Trent Nicholas MD Prostate cancer metastatic to bone ([facility]/HCC) 09/30/2024 External Device Data STL ABSTRACTION Provider, Abstract 09/29/2024 External Device Data ST[facility] ABSTRACTION Provider, Abstract 09/28/2024 8:22 PM CDT - 09/29/2024 12:19 AM CDT Emergency [facility] Emergency Department [address] [place] [address] Amado Paige MD Prostate cancer metastatic to bone (CMS/HCC) (Primary Dx); Right leg pain; Status post inguinal hernia repair; Type 2 diabetes mellitus without complication, without long-term current use of insulin ([facility]) Discharge Disposition: Home or Self Care 09/28/2024 Travel 09/22/2024 Orders Only [facility] Oncology and Hematology - [place] [address] [place] [address] Trent Nicholas MD Prostate cancer metastatic to bone (CMS/HCC) 09/08/2024 Orders Only [facility] Oncology and Hematology [facility] [address] [place] [address] Trent Nicholas MD Prostate cancer metastatic to bone (CMS/HCC) 09/02/2024 External Device Data STL ABSTRACTION Provider, Abstract 09/01/2024 1:12 AM DRILLING FOREMAN - 09/03/2024 4:00 PM D[employer]LLING FOREM[employer] Hospital Encounter [facility] Oncology [address] [place] [address] Eben Gray DO Pettis, Matthew, MD Robertson, Nathan C, MD Bockerstett, Jennifer E, DO Acute hypoxemic respiratory failure ([facility]) Discharge Disposition: Home or Self Care 09/01/2024 Travel from Last 3 Months Social History Tobacco Use Types Packs/Day Years Used Date Smoking Tobacco: Former Cigarettes 0.3 60 1 964 - 07/23/2023 Smokeless Tobacco: Never Alcohol Use Standard Drinks/Week Comments Yes 0 (1 standard drink = 0.6 oz pur e alcohol) Feeling Safe Answer Date Recorded Are you in a relationship wi th someone who hurts you emotionally and/or physically? 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[employer] Gender Identity Not on file Sexual Orientation Not on file Last Filed Vital Signs Vital Sign Reading Time Taken Comments Blood Pressure 179/77 09/28/2024 10:30 PM CDT Pulse 98 09/28/2024 10:30 PM CDT Temperature 36.7 C (98 F) 09/28/2024 6:04 PM CDT Respiratory Rate 18 09/28/2024 6:04 PM CDT Oxygen Saturation 92% 09/28/2024 10:30 PM CDT Inhaled Oxygen Concentration - - Weight 76.2 kg (168 lb) 09/28/2024 6:10 PM CDT Height 170.2 cm (5' 7 ) 09/28/2024 6:10 PM CDT Body Mass Index 26.31 09/28/2024 6:10 PM CDT Plan of Treatment Health Maintenance Due Date Last Done Comments DIABETES ANNUAL FOOT EXAM 1963 DIABETES ANNUAL RETINAL EXAM 1963 DIABETES MICROALBUMIN ANNUAL SCREEN 1963 LDL CHOLESTEROL ANNUAL 1963 DTAP/TDAP/TD VACCINES (1 - Tdap) 1964 PNEUMOCOCCAL VACCINE 50+ YEA RS (1 of 2 - PCV) 1964 ZOSTER VACCINE (1 of 2) 1964 RSV VACCINE (60+ or ) (1 - 1-dose 75+ series) 2020 INFLUENZA VACCINE (#1) 2024 0, 07/03/2019, 07/30/2013 DIABETES HBA1C Q 6 MONTHS 01/27/20252024, 11/02/2020, 11/05/2019, Additional history exists Medical Devices Implanted Type Area Block Piler Device Identifier Shelf Expiration Date Model / Serial / Lot Mesh Plug Perfix Light Lrg [id number] - [id number] Implanted:Qty : 1 on 07/31/2024 by Jimmy Ochoa Jr., MD at [facility] Mesh Right: Inguinal BARD DAVOL [id number] 06/19/2025 [id number] / / [id number] Procedures Procedure Name Priority Date/Time Associated Diagnosis Comments CT FEMUR WO CONTRAST RIGHT Stat 09/28/2024 10:[address] PELVIS WO CONTRAST Stat 09/28/2024 10:51 PM CDT XR FEMUR 2 VW RIGHT Stat 09/28/2024 9 :36 PM CDT XR PELVIS 1 OR 2 VW Stat 09/28/2024 9 :34 PM CDT COMPREHENSIVE METABOLIC PANEL Routine 09/03/2024 9:46 AM DRILLING FOREMAN CBC WITHOUT DIFFERENTIAL Routine 09/03/2024 9:46 AM DRILLING FOREMAN COMPREHENSIVE METABOLIC PANEL Routine 09/02/2024 5:25 AM DRILLING FOREMAN CBC WITHOUT DIFFERENTIAL Routine 09/02/2024 5:25 AM DRILLING FOREMAN LACTATE DEHYDROGENASE, BODY FLUID Routine 09/01/2024 2:37 PM DRILLING FOREMAN PROTEIN, BODY FLUID Routine 09/01/2024 2 :37 PM DRILLING FOREMAN CELL COUNT WITH DIFFERENTIAL, BODY FLUID Routine 09/01/2024 2:37 PM DRILLING FOREMAN ANAEROBIC/AEROBIC CULTURE W GRAM STAIN Routine 09/01/2024 2:37 PM DRILLING FOREMAN XR CHEST PA OR AP 1 VW Stat 09/01/2024 2:35 PM DRILLING FOREMAN LACTATE DEHYDROGENASE Routine 09/01/2024 10:40 AM DRILLING FOREMAN PROTEIN TOTAL Routine 09/01/2024 10:40 AM DRILLING FOREMAN PROTIME-INR Routine 09/01/2024 10:40 AM DRILLING FOREMAN CYTOLOGY, NON GYNE Pathology 09/01/2024 9: 55 AM DRILLING FOREMAN TROPONIN 6 HR, 5TH GEN Timed Study 09/01/2024 8:25 AM DRILLING FOREMAN TROPONIN 2 HR, 5TH GEN Timed Study 09/01/2024 3:45 AM DRILLING FOREMAN CTA CHEST W WO CONTRAST Stat 09/01/2024 3:36 AM DRILLING FOREMAN RESPIRATORY PATHOGEN PCR PANEL Stat 09/01/2024 1:42 AM DRILLING FOREMAN TROPONIN BASELINE, 5TH GEN Stat 09/01/2024 1:40 AM DRILLING FOREMAN BRAIN NATRIURETIC PEPTIDE, BNP OR PROBNP Stat 09/01/2024 1:40 AM DRILLING FOREMAN COMPREHENSIVE METABOLIC PANEL Stat 09/01/2024 1:40 AM DRILLING FOREMAN CBC WITH DIFFERENTIAL Stat 09/01/2024 1:40 AM DRILLING FOREMAN BLOOD CULTURE Stat 09/01/2024 1:40 AM DRILLING FOREMAN BLOOD CULTURE Stat 09/01/2024 1:40 AM DRILLING FOREMAN BLOOD CULTURE Stat 09/01/2024 1:40 AM DRILLING FOREMAN BLOOD CULTURE Stat 09/01/2024 1:40 AM DRILLING FOREMAN POC LACTIC ACID Stat 09/01/2024 1:39 AM DRILLING FOREMAN EKG 12-LEAD Stat 09/01/2024 1:16 AM DRILLING FOREMAN PULSE OXIMETRY, CONTINUOUS Stat 09/01/2024 1:13 AM DRILLING FOREMAN HEMOGLOBIN A1C Routine 07/30/2024 1:01 PM DRILLING FOREMAN from Last 3 Months or Most Recently Relevant to Health Maintenance Results * CT FEMUR WO CONTRAST RIGHT (09/28/2024 10:51 PM CDT) Anatomical Region Laterality Modality Lower Extremity Computed Tomogra phy 09/28/2024 10:5 1 PM CDT Impressions 09/28/2024 11:04 PM CDT IMPRESSION: 1. Multifocal osteoblastic metastatic disease 2. No fracture or dislocation. DICTATION LOCATION: Location 1 - [facility] 09/28/2024 11:04 PM CDT EXAMINATION: COMPUTED TOMOGRAPHY (CT) OF THE right femur without contrast DATE: 09/28/2024 10:51 PM HISTORY: fall, pain, mets, ? fx TECHNIQUE: CT of the right femur was performed without contrast according to standard protocol. The examination was performed with the adjustment of mA according to the patient size and/or the use of Iterative Reconstruction Technique. COMPARISON: Comparison made with right femur radiographs from 09/28/2024. FINDINGS: Multifocal sclerotic osseous metastatic disease in the right femoral neck and subtrochanteric proximal right femoral diaphysis. No acute displaced fracture. No dislocation. The joint spaces, soft tissues, and musculature appear normal. No joint effusion is present. INCIDENTAL FINDINGS: None. Procedure Note Leonardo Mckinney, DO - 09/28/2024 EXAMINATION: COMPUTED TOMOGRAPHY (CT) OF THE right femur without contrast DATE: 09/28/2024 10:51 PM HISTORY: fall, pain, mets, ? fx TECHNIQUE: CT of the right femur was performed without contrast according to standard protocol. The examination was performed with the adjustment of mA according to the patient size and/or the use of Iterative Reconstruction Technique. COMPARISON: Comparison made with right femur radiographs from 09/28/2024. FINDINGS: Multifocal sclerotic osseous metastatic disease in the right femoral neck and subtrochanteric proximal right femoral diaphysis. No acute displaced fracture. No dislocation. The joint spaces, soft tissues, and musculature appear normal. No joint effusion is present. INCIDENTAL FINDINGS: None. IMPRESSION: 1. Multifocal osteoblastic metastatic disease 2. No fracture or dislocation. DICTATION LOCATION: Location [address] [place] [address] ORDERABLES Final Result * CT PELVIS WO CONTRAST (09/28/2024 10:51 PM CDT) Anatomical Region Laterality Modality Pelvis Computed Tomogra phy 09/28/2024 10:5 1 PM CDT Impressions 09/28/2024 11:01 PM CDT IMPRESSION: 1. Widespread sclerotic osseous metastatic disease. 2. No displaced fracture or dislocation identified. DICTATION LOCATION: Location - [facility] Narrative 09/28/2024 11:01 PM CDT EXAMINATION: COMPUTED TOMOGRAPHY (CT) OF THE PELVIS without contrast DATE: 09/28/2024 10:51 PM HISTORY: fall, pain, mets, ? fx TECHNIQUE: CT of the pelvis was performed without contrast according to standard protocol. The examination was performed with the adjustment of mA according to the patient size and/or the use of Iterative Reconstruction Technique. COMPARISON: Comparison made with a CT from 07/30/2024. FINDINGS: No acute fracture or dislocation is identified. Widespread sclerotic osseous metastatic disease throughout the imaged lumbar spine, pelvis, and bilateral proximal femora. There is no significant hip effusion. The muscles and soft tissues appear normal. Evaluation of visceral and vascular structures is degraded due to lack of intravenous contrast. The visible portions of the small bowel and large bowel are normal in caliber without evidence of wall thickening or obstruction. Urinary bladder is underdistended. Prostate gland is atrophic. No free fluid is seen within the pelvis. There is no pelvic lymphadenopathy. Prior right inguinal hernia repair. INCIDENTAL FINDINGS: None. Procedure Note Leonardo Mckinney DO - 09/28/2024 EXAMINATION: COMPUTED TOMOGRAPHY (CT) OF THE PELVIS without contrast DATE: 09/28/2024 10:51 PM HISTORY: fall, pain, mets, ? fx TECHNIQUE: CT of the pelvis was performed without contrast according to standard protocol. The examination was performed with the adjustment of mA according to the patient size and/or the use of Iterative Reconstruction Technique. COMPARISON: Comparison made with a CT from 07/30/2024. FINDINGS: No acute fracture or dislocation is identified. Widespread sclerotic osseous metastatic disease throughout the imaged lumbar spine, pelvis, and bilateral proximal femora. There is no significant hip effusion. The muscles and soft tissues appear normal. Evaluation of visceral and vascular structures is degraded due to lack of intravenous contrast. The visible portions of the small bowel and large bowel are normal in caliber without evidence of wall thickening or obstruction. Urinary bladder is underdistended. Prostate gland is atrophic. No free fluid is seen within the pelvis. There is no pelvic lymphadenopathy. Prior right inguinal hernia repair. INCIDENTAL FINDINGS: None. IMPRESSION: 1. Widespread sclerotic osseous metastatic disease. 2. No displaced fracture or dislocation identified. DICTATION LOCATION: Location 1 - [facility] Amado Paige MD CT ORDERABLES Final Result * XR FEMUR 2 VW RIGHT (09/28/2024 9:36 PM CDT) Anatomical Region Laterality Modality Lower Extremity Computed Radiogr aphy 09/28/2024 9:36 PM CDT Impressions 09/28/2024 9:50 PM CDT IMPRESSION: 1. No acute fracture or dislocation of the right femur. 2. Diffuse prostate cancer bone metastases. Dictation location: Location 4 Narrative 09/28/2024 9:50 PM CDT XR FEMUR 2 VW RIGHT CLINICAL INDICATION: Fall. TECHNIQUE: Frontal and lateral views of the right femur COMPARISON: None FINDINGS: Numerous sclerotic lesions in the right proximal femur and pelvic bones. No acute fracture or dislocation. Procedure Note Panchito Andersen MD - 09/28/2024 XR FEMUR 2 VW RIGHT CLINICAL INDICATION: Fall. TECHNIQUE: Frontal and lateral views of the right femur COMPARISON: None FINDINGS: Numerous sclerotic lesions in the right proximal femur and pelvic bones. No acute fracture or dislocation. IMPRESSION: 1. No acute fracture or dislocation of the right femur. 2. Diffuse prostate cancer bone metastases. Dictation location: Location 4 us Amado Paige MD DIAGNOSTIC IMAGING ORDERABLES Final Result * XR PELVIS 1 OR 2 VW (09/28/2024 9:34 PM CDT) Anatomical Region Laterality Modality Pelvis Computed Radiogr aphy 09/28/2024 9:36 PM CDT Impressions 09/28/2024 9:51 PM CDT IMPRESSION: Heterogeneous appearance to the pelvic bony structures with patchy sclerotic lesions, compatible with osseous metastasis. No acute fracture is identified. DICTATION LOCATION: Location 1 [facility] Narrative 09/28/2024 9:51 PM CDT EXAM: XR PELVIS 1 OR 2 VW DATE: 09/28/2024 9:34 PM HISTORY: Fall COMPARISON: 07/30/2024 FINDINGS: A frontal view of the pelvis was performed. Both femoral heads are seated within their acetabula. There is a very mottled appearance to the bony structures, with diffuse patchy sclerotic lesions. There is no displaced pelvic fracture identified. The sacroiliac joints are symmetric. A large amount of stool is noted throughout the colonic lumen. Procedure Note Colleen Turpin MD - 09/28/2024 EXAM: XR PELVIS 1 OR 2 VW DATE: 09/28/2024 9:34 PM HISTORY: Fall COMPARISON: 07/30/2024 FINDINGS: A frontal view of the pelvis was performed. Both femoral heads are seated within their acetabula. There is a very mottled appearance to the bony structures, with diffuse patchy sclerotic lesions. There is no displaced pelvic fracture identified. The sacroiliac joints are symmetric. A large amount of stool is noted throughout the colonic lumen. IMPRESSION: Heterogeneous appearance to the pelvic bony structures with patchy sclerotic lesions, compatible with osseous metastasis. No acute fracture is identified. DICTATION LOCATION: Location 1 - [facility] Amado Paige MD DIAGNOSTIC IMAGING ORDERABLES Final Result * (ABNORMAL) CBC WITHOUT DIFFERENTIAL (09/03/2024 9:46 AM DRILLING FOREMAN) Only the most recent of2 resultswithin the time period is included. WBC 6.3 4.0 - 9.8 K/uL 09/03/2024 10:49 AM DRILLING FOREMAN [facility] LABORATORY SERVICES [facility] NRBCS 1 % 09/03/2024 10:49 AM DRILLING FOREMAN [facility] LABORATORY SERVICES [facility] RBC 2.92(L) 4.50 - 5.40 M/uL 09/03/2024 10:49 AM [facility] [employer] [facility] HEMOGLOBIN 7.7(L) 13.6 - 16.5 g/dL 09/03/2024 10:49 AM [facility] HEMATOCRIT 25.2(L) 40.0 - 48.0 % 09/03/2024 10:49 AM [facility] [employer] [facility] MCV 86.3 82.0 - 99.0 fL 09/03/2024 10:49 AM [facility] [employer] [facility] MCH 26.4(L) 27.2 - 32.6 pg 09/03/2024 10:49 AM [facility] [employer] [facility] MCHC 30.6(L) 31.5 - 35.5 g/dL 09/03/2024 10:49 AM [facility] [employer] [facility] PLATELETS 505(H) 140 - 350 K/uL 09/03/2024 10:49 AM [facility] [employer] [facility] MPV 9.1(L) 9.3 - 12.4 fL 09/03/2024 10:49 AM [facility] [employer] [facility] RDW 19.2(H) 11.5 - 14.5 % 09/03/2024 10:49 AM [facility] [employer] [facility] RDW-STDEV 59.7(H) 37.1 - 48.7 fL 09/03/2024 10:49 AM [facility] [employer] [facility] Blood Venipuncture / Unknown 09/03/2024 9:46 AM D[employer]LLING FOREM[employer] 09/03/2024 10:14 AM DRILLING FOREMAN us Jose Cruz Reardon MD HEMATOLOGY ORDERABLES Carina l Result [facility] [id number] [address] [facility] [place] [address] * (ABNORMAL) COMPREHENSIVE METABOLIC PANEL (09/03/2024 9:46 AM DRILLING FOREMAN) Only the most recent of3 resultswithin the time period is included. [facility] SODIUM 136 136 - 145 mmol/L 09/03/2024 11:06 AM DRILLING FOREMAN [employer] LABORATORY SERVICES - [facility] POTASSIUM 4.1 3.5 - 5.0 mmol/L 09/03/2024 11:06 AM [facility] LABORATORY SERVICES - . [facility] CHLORIDE 103 98 - 107 mmol/L 09/03/2024 11:06 AM [facility] LABORATORY SERVICES - . [facility] CO2 22 22 - 29 mmol/L 09/03/2024 11:06 AM [facility] LABORATORY SERVICES - . [facility] CALCIUM 8.7 8.6 - 10.2 mg/dL 09/03/2024 11:06 AM [employer] [facility] LABORATORY SERVICES - . [facility] BUN 21 8 - 23 mg/dL 09/03/2024 11:06 AM [facility] LABORATORY SERVICES - . [facility] CREATININE 1.18(H) 0.67 - 1.17 mg/dL 09/03/2024 11:06 AM [facility] LABORATORY SERVICES [facility] Comment:The GFR result is no t clinically significant on patients <18 or >70 years of age. GLUCOSE 94 74 - 99 mg/dL 09/03/2024 11:06 AM DRILLING [employer]EM[employer] [facility] LABORATORY SERVICES [facility] TOTAL PROTEIN 5.5(L) 6.7 - 8.6 g/dL 09/03/2024 11:06 AM D[employer]LLING [employer]EM[employer] [facility] LABORATORY SERVICES - . [facility] ALBUMIN 2.9(L) 3.5 - 5.2 g/dL 09/03/2024 11:06 AM [facility] [employer] [facility] LABORATORY SERVICES [facility] BILIRUBIN TOTAL 0.2 0.2 - 1.1 mg/dL 09/03/2024 11:06 AM [facility] [employer] [facility] LABORATORY SERVICES [facility] ALKALINE PHOSPHATASE 309(H) 40 - 129 U/L 09/03/2024 11:06 AM [facility] [facility] AST 31 <41 U/L 09/03/2024 11:06 AM [facility] [facility]. [facility] ALT 30 <42 U/L 09/03/2024 11:06 AM [facility] GFR >60 mL/min/1.7 3 sq meter 09/03/2024 11:06 AM [employer] LABORATORY SERVICES [facility] Comment:eGFR calculated with 2020 CKD-EPI equation. Vegetarian diet, extremely high or low muscle mass, and may affect results. Cystatin C with Glomerular Filtration Rate is a suitable alternative for these patients. ANION GAP 11 8 - 16 mmol/L 09/03/2024 11:06 AM [facility]ORATORY [facility] Blood Venipuncture / Unknown 09/03/2024 9:46 AM DRILLING FOREMAN 09/03/2024 10:13 AM DRILLING FOREMAN Narrative [facility] LABORATORY [facility] - 09/03/2024 11:06 AM DRILLING FOREMAN Samples containing indocyanine green cause interferences on Total and/or Direct Bilirubin and must not be measured. Jose Cruz Reardon MD CHEMISTRY ORDERABLES Final Result Performing Organization Address [facility]/ZIP Co de Phone Number [facility] CLIA# [id number] [address] [place] [address] * ANAEROBIC/AEROBIC CULTURE W GRAM STAIN (09/01/2024 2:37 PM DRILLING FOREMAN) CULTURE No aerobic or anaerobic growth 09/06/2024 8:56 AM [facility] LABORATORY [facility] GRAM STAIN No organisms observed 09/06/2024 8:56 AM [facility] GRAM STAIN 3+ (Moderate) Polymorphonuclear WBC 09/06/2024 8:56 AM [facility] Body fluid (Pleura, left) Collection / Unknown 09/01/2024 2:37 PM DRILLING FOREMAN 09/01/2024 2:37 PM DRILLING FOREMAN Jose Cruz Reardon MD MICROBIOLOGY - GENERAL ORD ERABLES Final Result [facility] CLIA# [id number] [address] [place] [address] * (ABNORMAL) CELL COUNT WITH DIFFERENTIAL, BODY FLUID (09/01/2024 2:37 PM DRILLING FOREMAN) APPEARANCE, BODY FLUID Cloudy 09/01/2024 4:31 PM DRILLING FOREMAN [facility] LABORATORY [facility] COLOR, FLD Yellow 09/01/2024 4:31 PM [facility]ATORY [facility] Comment:Dark Yellow TOTAL NUCLEATED CELLS, FLD (AUTO) 248 1,395 - 3,734 /ul 09/01/2024 4:31 PM [facility] TOTAL RBC'S, FLD (AUTO) 8,000 No Ref Range Estab /ul 09/01/2024 4:31 PM [facility] NEUTROPHILS, FLD 17(H) 0 - 1 % 09/01/19 25 4:31 PM [facility] LYMPHOCYTE, FLD 15(L) 18 - 36 % 5 4:31 PM [facility] MONOCYTE/MACROPH AGE, FLD 64 64 - 80 % 09/01/2024 4:31 PM [facility] MESOTHELIAL FLD 4(H) 0 - 2 % 4:31 PM [facility] Body fluid (Pleura, left) Collection / Unknown 09/01/2024 2:37 PM D[employer]LLING FOREMAN 09/01/2024 2:37 PM DRILLING FOREMAN Jose Cruz Reardon MD BODY FLUIDS AND STOOLS Fin al Result [facility]# [id number] [address] [place] [id number] * PROTEIN, BODY FLUID (09/01/2024 2:37 PM DRILLING FOREMAN) PROTEIN, FLD 3.8 g/dL 09/01/2024 3:22 PM DRILLING FOREMAN [facility] Body fluid (Pleura, left) Collection / Unknown 09/01/2024 2:37 PM D[employer]LLING FOREMAN 09/01/2024 2:37 PM DRILLING FOREMAN Narrative [facility] - 09/01/2024 3:22 PM DRILLING FOREMAN Interpretive Criteria: Transudate: <2.0 g/dL Exudate: >2.0 g/dL The reference range and other method performance specifications are unavailable for this body fluid. Comparison of this result with the concentration in the blood, serum, or plasma is recommended. Jose Cruz Reardon MD BODY FLUIDS AND STOOLS Fin al Result Performing Organization Address [facility] Co de Phone Number [facility]# [id number] [address] [place] [address] * LACTATE DEHYDROGENASE, BODY FLUID (09/01/2024 2:37 PM DRILLING FOREM[employer]) [facility] LD, FLD 96 U/L 09/01/2024 3:22 PM D[employer]LL[employer]EM[employer] [facility] Body fluid (Pleura, left) Collection / Unknown 09/01/2024 2:37 PM [employer]LL[employer]EM[employer] 09/01/2024 2:37 PM [employer]ING [employer] Narrative [facility] - 09/01/2024 3:22 PM D[employer]LL[employer] Interpretive Criteria: Transudate: < 200 U/L or Fluid/Serum Ratio < 0.6 Exudate: > 200 U/L or Fluid/Serum Ratio > 0.6 The reference range and other method performance specifications are unavailable for this body fluid. Comparison of this result with the concentration in the blood, serum or plasma is recommended. Jose Cruz Reardon MD BODY FLUIDS AND STOOLS Fin al Result Performing Organization Address [facility] Co de Phone Number [facility]# [id number] [address] [place] [address] * XR CHEST PA OR AP 1 VW (09/01/2024 2:35 PM D[employer]LLING [employer]EM[employer]) Anatomical Region Laterality Modality Chest Computed Radiogr aphy 09/01/2024 2:35 PM [employer]LLING [employer]EM[employer] Impressions 09/01/2024 2:44 PM [employer]LLING [employer]EM[employer] IMPRESSION: Decreasing small left pleural effusion after thoracentesis. No pneumothorax. Moderate bilateral interstitial edema, small right pleural effusion and basilar atelectasis are unchanged. DICTATION LOCATION: Location 1 - [facility] Narrative 09/01/2024 2:44 PM DRILLING [employer]EMAN EXAMINATION: XR CHEST PA OR AP 1 VW HISTORY: Thoracentesis, Comment: Left; Influenza; Prostate cancer metastatic to bone (CMS/HCC); Prostate cancer metastatic to bone (CMS/HCC); Acute hypoxemic respiratory failure (CMS/HCC) DATE: 09/01/2024 2:35 PM COMPARISON: Comparison is made with a study from 09/01/2024 FINDINGS: Small left pleural effusion has decreased from the recent CT. Stable small right pleural effusion. Moderate bilateral interstitial edema and basilar atelectasis is unchanged. There is no pneumothorax. The cardiomediastinal silhouette is normal. INCIDENTAL FINDINGS: None. 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 Stable small right pleural effusion. Moderate bilateral interstitial edema and basilar atelectasis is unchanged. There is no pneumothorax. The cardiomediastinal silhouette is normal. INCIDENTAL FINDINGS: None. IMPRESSION: Decreasing small left pleural effusion after thoracentesis. No pneumothorax. Moderate bilateral interstitial edema, small right pleural effusion and basilar atelectasis are unchanged. DICTATION LOCATION: Location 1 - [facility] Alex Michael MD DIAGNOSTIC IMAGING ORDERAB LES Final Result * (ABNORMAL) PROTIME-INR (09/01/2024 10:40 AM DRILLING FOREMAN) PROTIME 15.2(H) 12.7 - 15.1 Seconds 09/01/2024 11:22 AM DRILLING FOREMAN [facility] LABORATORY SERVICES [facility] INR 1.2(H) 0.9 - 1.1 09/01/2024 11:22 AM DRILLING [employer]EMAN [facility] Blood Venipuncture / Unknown 09/01/2024 10:40 AM D[employer]LLING FOREMAN 09/01/2024 10:52 AM DRILLING FOREMAN Narrative [facility] - 09/01/2024 11:22 AM DRILLING FOREMAN INR Therapeutic Range: Adult: 2.0 - 3.0 for pulmonary embolism or prophylaxis against venous thrombosis or systemic embolization. 2.0 - 3.0 for patients with tissue heart valves. 2.5 - 3.5 for patients with mechanical heart valves or post LA. Pediatric (12 years and under): 1.5 - 3.0 Although the target range in children is not well established, INR values of 1.5 - 3.0 are recommended for most patients. Higher values have been used in children with prosthetic cardiac valves and hereditary clotting disorders. [place] (<3 days) therapeutic ranges have not been established. Jose Cruz Reardon MD HEMATOLOGY ORDERABLES Carina l Result Performing Organization Address [facility] Co de Phone Number [facility] CLIA# [id number] [address] [place] [address] * (ABNORMAL) PROTEIN TOTAL (09/01/2024 10:40 AM DRILLING FOREMAN) [facility] TOTAL PROTEIN 5.9(L) 6.7 - 8.6 g/dL 09/01/2024 11:34 AM DRILLING FOREMAN [facility] Blood Venipuncture / Unknown 09/01/2024 10:40 AM D[employer]LLING FOREMAN 09/01/2024 10:51 AM DRILLING FOREMAN Jose Cruz Reardon MD CHEMISTRY ORDERABLES Final Result Performing Organization Address City/[facility]/ZIP Co de Phone Number [facility]# [id number] [address] [address] * (ABNORMAL) LACTATE DEHYDROGENASE (09/01/2024 10:40 AM DRILLING FOREMAN) LD (LACTATE DEHYDROGENASE) 621(H) 135 - 225 U/L 09/01/2024 11:36 AM [facility] [employer] [facility] Blood Venipuncture / Unknown 09/01/2024 10:40 AM DRILLING FOREMAN 09/01/2024 10:51 AM DRILLING FOREMAN us Jose Cruz Reardon MD CHEMISTRY ORDERABLES Final Result [facility]# [id number] [address] [place] [address] * CYTOLOGY, NON GYNE (09/01/2024 9:55 AM DRILLING FOREMAN) CASE REPORT Medical Cytology Report Case: [id number] Authorizing Provider: Jose Cruz Reardon MD Collected: 09/01/2024 09:55 AM Ordering Location: [facility] Received: 09/02/2024 09:31 AM Oncology Pathologist: Aide Grover MD Specimen: Pleural fluid, left 7:11 AM [facility] FINAL DIAGNOSIS Pleural fluid, left, cytospin, ThinPrep and cellblock: - No malignant cells identified 7:11 AM [facility] at 0711 D[employer]LLING [employer]EM[employer] GROSS DESCRIPTION Received is a container labeled Jarrell White and left pleural fluid . It contains 15 mL of cloudy yellow fluid. One ThinPrep and 1 cell block made. One Morales-stained cytospin slide received from Hematology. 7:11 AM [facility] MICROSCOPIC DESCRIPTION The slides are labeled [id number] and Jarrell Steen. The cytospin, ThinPrep and cellblock from the left pleural fluid shows numerous macrophages and mesothelial cells. There is blood present in the background. Immunostains are performed on the cellblock including Nicolas-EP4 and TTF-1, and are negative. No malignant cells are identified.. 7:11 AM [facility] CLINICAL INFORMATION left pleural effusion No Dx found. 7:11 AM [facility] COMMENT Special stain, immunohistochemical, and/or in situ hybridization results are interpreted with controls that demonstrate appropriate staining reactions. Note on use of immunohistochemistry reagents and in situ hybridization probes: These tests were developed and their performance characteristics determined by [facility], Department of Laboratory Medicine. It has not been cleared or approved by the U.S. Food and Drug Administration. The FDA has determined that such clearance or approval is not necessary. The test is used for clinical purposes. It should not be regarded as investigational or for research. This laboratory is certified to perform high complexity testing. Cases may have been signed out in part or completely in the following laboratories: [facility], CLIA #[id number] [address] [place] [address] [facility]/[place], [place] #[id number] [address] [place] [address]. 7:11 AM DRILLING FOREMAN [facility] Body fluid PLEURAL FLUID SPECIMEN / Unknown 09/01/2024 9:55 AM DRILLING FOREMAN 09/02/2024 9:31 AM [employer]LLING FOREMAN Jose Cruz Reardon MD PATHOLOGY/CYTOLOGY ORDERAB LES Final Result [id number] [address] [place] [address] * (ABNORMAL) TROPONIN 6 HR, 5TH GEN (09/01/2024 8:25 AM DRILLING FOREMAN) TROPONIN T, 6 HR 5TH GEN 28(H) <=15 ng/L 09/01/2024 9:20 AM DRILLING FOREMAN [facility] DELTA 6HR TROPONIN T -2 See Interp. 09/01/2024 9:20 AM DRILLING [employer]EMAN [facility] Blood Venipuncture / Unknown 09/01/2024 8:25 AM D[employer]LLING [employer]EM[employer] 09/01/2024 8:39 AM DRILLING FOREMAN Narrative [facility] - 09/01/2024 9:20 AM DRILLING FOREMAN Troponin elevated. Delta indeterminate. Delay in collection of timed specimen beyond recommended collection interval. Results must be interpreted in clinical context. us [facility] CHEMISTRY ORDERABLES Final Resul t Performing Organization Address [facility]/ZIP Co de Phone Number [facility] [facility] [id number] [address] [place] [address] * (ABNORMAL) TROPONIN 2 HR, 5TH GEN (09/01/2024 3:45 AM DRILLING FOREMAN) TROPONIN T, 2 HR 5TH GEN 27(H) <=15 ng/L 09/01/2024 5:15 AM DRILLING FOREMAN [facility] DELTA 2HR TROPONIN T -3 See Interp. 09/01/2024 5:15 AM DRILLING FOREMAN [facility] Blood Venipuncture / Unknown 09/01/2024 3:45 AM DRILLING FOREMAN 09/01/2024 3:51 AM DRILLING FOREMAN Narrative [facility] - 09/01/2024 5:15 AM DRILLING FOREMAN Troponin elevated. Delta not changing. Delay in collection of timed specimen beyond recommended collection interval. Results must be interpreted in clinical context. [facility] CHEMISTRY ORDERABLES Final Resul t Performing Organization Address [facility] Co de Phone Number [facility] [employer] [facility]# [id number] [address] [place] [address] * CTA CHEST W WO CONTRAST (09/01/2024 3:36 AM DRILLING FOREMAN) Anatomical Region Laterality Modality Chest Computed Tomogra phy 09/01/2024 3:22 AM DRILLING FOREMAN Impressions 09/01/2024 3:55 AM DRILLING FOREMAN IMPRESSION: 1. No pulmonary embolus. 2. Bilateral effusions larger on the left with left basilar atelectasis. 3. Motion artifact. 4. Diffuse bony metastases with old compression fracture T10. DICTATION LOCATION: Location 7 [facility] 09/01/2024 3:[address] pulmonary angiography with contrast DATE: 09/01/2024 3:36 AM CLINICAL HISTORY: Shortness of breath. History of metastatic prostate carcinoma. Rule out pulmonary embolus. Contrast administered: IOPAMIDOL 61 % INTRAVENOUS SOLUTION (MULTI-DOSE BULK PACK) Given:80 mL TECHNIQUE: CT pulmonary angiography is performed with intravenous infusion of contrast. Sliding MIP reconstructions are performed by the technologist. COMPARISON: None The examination was performed with the adjustment of mA according to the patient size and/or the use of Iterative Reconstruction Technique. FINDINGS: There are bilateral pleural effusions larger on the left with passive atelectasis in the left lower lobe. Discoid changes are seen in the right lung base. Motion artifact blurs the vascular structures on multiple images. The central airways are patent. The vascular structures enhance normally. Vascular calcification is present in the thoracic aorta with extension into the origins of the great vessels and the coronary arteries. There is no mediastinal or hilar mass or significant adenopathy. There is no filling defect in the pulmonary arteries or vascular cutoff to suggest the diagnosis of pulmonary embolus. Diffuse bony metastases are evident throughout the thoracic cage. There is a compression fracture of T10 with 20% loss of vertebral height. This fracture was seen on prior CT abdomen and pelvis of 07/30/2024. INCIDENTAL FINDINGS: None. Procedure Note Gumaro Colin MD - 09/01/2024 CT pulmonary angiography with contrast DATE: 09/01/2024 3:36 AM CLINICAL HISTORY: Shortness of breath. History of metastatic prostate carcinoma. Rule out pulmonary embolus. Contrast administered: IOPAMIDOL 61 % INTRAVENOUS SOLUTION (MULTI-DOSE BULK PACK) Given:80 mL TECHNIQUE: CT pulmonary angiography is performed with intravenous infusion of contrast. Sliding MIP reconstructions are performed by the technologist. COMPARISON: None The examination was performed with the adjustment of mA according to the patient size and/or the use of Iterative Reconstruction Technique. FINDINGS: There are bilateral pleural effusions larger on the left with passive atelectasis in the left lower lobe. Discoid changes are seen in the right lung base. Motion artifact blurs the vascular structures on multiple images. The central airways are patent. The vascular structures enhance normally. Vascular calcification is present in the thoracic aorta with extension into the origins of the great vessels and the coronary arteries. There is no mediastinal or hilar mass or significant adenopathy. There is no filling defect in the pulmonary arteries or vascular cutoff to suggest the diagnosis of pulmonary embolus. Diffuse bony metastases are evident throughout the thoracic cage. There is a compression fracture of T10 with 20% loss of vertebral height. This fracture was seen on prior CT abdomen and pelvis of 07/30/2024. INCIDENTAL FINDINGS: None. IMPRESSION: 1. No pulmonary embolus. 2. Bilateral effusions larger on the left with left basilar atelectasis. 3. Motion artifact. 4. Diffuse bony metastases with old compression fracture T10. DICTATION LOCATION: Location [address] [place] [address] ORDERABLES Final Result * (ABNORMAL) RESPIRATORY PATHOGEN PCR PANEL (09/01/2024 1:42 AM DRILLING FOREMAN) [facility] COVID-19 PCR NOT DETECTED Not Detected 09/01/19 3:21 AM DRILLING FOREMAN [facility] Influenza A H3 by PCR DETECTED(A) Not Detected 09/01/2024 3:21 AM DRILLING FOREMAN [facility] Upper Respiratory ENTIRE NASOPHARYNX / Unknown Collection / Unknown 09/01/2024 1:42 AM DRILLING FOREMAN 09/01/2024 2:01 AM DRILLING FOREMAN Narrative [facility] - 09/01/2024 3:21 AM DRILLING FOREMAN The Film Array Respiratory Panel (RP2.1) is a multiplex nucleic acid detection test for 22 targets. Viruses: Adenovirus Coronavirus HKU1, NL63, 229E, and OC43 COVID-19/Severe Acute Respiratory Syndrome Coronavirus 2 Influenza A with the following subtypes: H1, H1-2009, and H3 Influenza B Human Metapneumovirus Parainfluenza virus 1, 2, 3, and 4 Respiratory Syncytial virus (RSV) Rhinovirus/Enterovirus (cannot differentiate due to genetic similarities) Bacteria: Bordetella pertussis Bordetella parapertussis Chlamydophila pneumoniae Mycoplasma pneumoniae Eben Gray MICROBIOLOGY - GENERAL ORDERABLE S Final Result [facility]# [id number] [address] [employer] [facility] [place] [address] * (ABNORMAL) TROPONIN BASELINE, 5TH GEN (09/01/2024 1:40 AM DRILLING FOREMAN) [facility] TROPONIN T, BASELINE 5TH GEN 30(H) <=15 ng/L 09/01/2024 3:03 AM [facility] Blood Venipuncture / Unknown 09/01/2024 1:40 AM DRILLING FOREMAN 09/01/2024 2:01 AM DRILLING FOREMAN Narrative [facility] LABORATORY SERVICES - [facility] - 09/01/2024 3:03 AM DRILLING FOREMAN Troponin elevated. Eben Gray DO CHEMISTRY ORDERABLES Final Resul t [facility] [employer] CLIA# [id number] [address] [facility] [address] * (ABNORMAL) CBC WITH DIFFERENTIAL (09/01/2024 1:40 AM DRILLING FOREMAN) [facility] WBC 8.1 4.0 - 9.8 K/uL 09/01/2024 2:36 AM [facility] [employer] [facility] RBC 3.30(L) 4.50 - 5.40 M/uL 09/01/2024 2:36 AM [facility] [employer] [facility] HEMOGLOBIN 9.1(L) 13.6 - 16.5 g/dL 09/01/2024 2:36 AM [facility] [employer] [facility] HEMATOCRIT 27.9(L) 40.0 - 48.0 % 09/01/2024 2:36 AM [facility] [employer] [facility] MCV 84.5 82.0 - 99.0 fL 09/01/2024 2:36 AM [facility] [employer] [facility] MCH 27.6 27.2 - 32.6 pg 09/01/2024 2:36 AM [employer] [facility] MCHC 32.6 31.5 - 35.5 g/dL 09/01/2024 2:36 AM [facility] [employer] [facility] RDW 18.9(H) 11.5 - 14.5 % 09/01/2024 2:36 AM D[employer]LLING FOREMAN [employer] [facility] RDW-STDEV 58.5(H) 37.1 - 48.7 fL 09/01/2024 2:36 AM [facility] [employer] SERVICES - [facility] PLATELETS 491(H) 140 - 350 K/uL 09/01/2024 2:36 AM [facility] [employer] SERVICES - [facility] MPV 9.7 9.3 - 12.4 fL 09/01/2024 2:36 AM [facility] [employer] [facility] - . [facility] NEUTROPHILS 80 % 09/01/2024 2:36 AM [facility] [employer] [facility] LYMPHOCYTES 10 % 09/01/2024 2:36 AM [facility] [employer] [facility] MONOCYTES 4 % 09/01/2024 2:36 AM [facility] [employer] SERVICES - [facility] EOSINOPHILS 4 % 09/01/2024 2:36 AM [facility] [employer] [facility] BASOPHILS 1 % 09/01/2024 2:36 AM [facility] [employer] [facility] - . [facility] IMMATURE GRANULOCYTES 1 % 09/01/2024 2:36 AM [facility] [employer] [facility] - [facility] Comment:IG (Immature Granulo cyte) count includes Metamyelocytes, Myelocytes, and Promyelocytes NEUTROPHIL ABSOLUTE 6.49 1.90 - 7.00 K/uL 09/01/2024 2:36 AM [facility] [employer] [facility] LYMPHOCYTE ABSOLUTE 0.84 0.70 - 4.50 K/uL 09/01/2024 2:36 AM [facility] [employer] [facility] MONOCYTE ABSOLUTE 0.30 0.10 - 1.30 K/uL 09/01/2024 2:36 AM [employer] [facility] - . [facility] EOSINOPHIL ABSOLUTE 0.34 0.00 - 0.70 K/uL 09/01/2024 2:36 AM [facility] [employer] [facility] BASOPHILS ABSOLUTE 0.06 0.00 - 0.20 K/uL 09/01/2024 2:36 AM [employer] [facility] - . [facility] IMMATURE GRANULOCYTES ABSOLUTE 0.06(H) 0.00 - 0.03 K/uL 09/01/2024 2:36 AM [facility] [employer] [facility] Blood Venipuncture / Unknown 09/01/2024 1:40 AM DRILLING FOREMAN 09/01/2024 2:01 AM [facility] us Eben Marina DO HEMATOLOGY ORDERABLES Final Resu lt Performing Organization Address [facility]/ZIP Co de Phone Number [facility] CLMELISSA# [id number] [address] [place] [address] * BLOOD CULTURE (09/01/2024 1:40 AM DRILLING FOREMAN) Only the most recent of2 resultswithin the time period is included. Pathologist [facility] BLOOD CULTURE No growth 09/06/2024 5:54 AM DRILLING FOREMAN [facility] [employer] [facility] Blood (Peripheral) Venipuncture / Unknown 09/01/2024 1:40 AM DRILLING FOREMAN 09/01/2024 1:59 AM DRILLING FOREMAN [facility] [employer] [facility] - 09/06/2024 5:54 AM DRILLING FOREMAN Specimen processed with suboptimal blood volume collected. Eben Gray DO MICROBIOLOGY - GENERAL ORDERABLE S Final Result Performing Organization Address [facility] Co de Phone Number [facility] [employer] [facility] CLIA# [id number] [address] [place] [address] * (ABNORMAL) BRAIN NATRIURETIC PEPTIDE, BNP OR PROBNP (09/01/2024 1:40 AM DRILLING FOREMAN) Pathologist [facility] PROBNP, N TERMINAL 1,773(H) <449 pg/mL 09/01/2024 3:03 AM DRILLING FOREMAN [facility] [employer] [facility] Comment: INTERPRETIVE COMMENT based on diagnosis: Diagnostic NT pro-BNP cutoffs for Heart Failure in the absence of renal failure is suggested for the following ranges <75 years: <125 pg/mL >=75 years: <450 pg/mL Exclusionary rule out cut-point for Acute Decompensated Heart Failure(ADHF) All ages: <300 pg/mL Diagnostic NT pro-BNP cutoffs for Acute Decompensated Heart Failure(ADHF) in the absence of renal failure is suggested for the following ages <50 years: > 450 pg/mL 50-75 years: > 900 pg/mL >75 years: >1800 pg/mL Blood Venipuncture / Unknown 09/01/2024 1:40 AM DRILLING FOREMAN 09/01/2024 2:01 AM DRILLING FOREMAN Eben Gray DO CHEMISTRY ORDERABLES Final Resul t Performing Organization Address [facility]/ZIP Co de Phone Number [facility]# [id number] [address] [place] [address] * (ABNORMAL) POC LACTIC ACID (09/01/2024 1:39 AM DRILLING FOREMAN) LACTIC ACID POC 2.5(H) <=2.0 mmol/L 09/01/2024 1:39 AM DRILLING FOREMAN [facility] LABORATORY [facility] SPECIMEN SOURCE, GASES POC Blank 09/01/2024 1:39 AM DRILLING FOREMAN [facility] COMMENT, GASES POC Responsible Clinical Caregiver notified 09/01/2024 1:39 AM [facility] Blood 09/01/2024 1:39 AM DRILLING FOREMAN 09/01/2024 1:40 AM DRILLING FOREMAN Eben Gray DO POINT OF CARE TESTING Final Resu lt Performing Organization Address [facility] Co de Phone Number [facility]# [id number] [facility] [place] [address] * EKG 12-LEAD (09/01/2024 1:16 AM DRILLING FOREMAN) 09/01/2024 1:16 AM DRILLING FOREMAN Narrative INTERFACE SYSTEM - 09/01/2024 12:35 PM [facility] [address] [place] [address] Test Date: 2024-09-01 Pat Name: JARRELL STEEN Department: 37 Room: [facility] Gender: Male Safety Counselor: caroleeheatherMarli : 1945 Requested By: Order Number: [id number] Eduardo MD: Omega Silva Measurements Intervals [place] Rate: 117 P: 7 MN: 147 QRS: 27 QRSD: 89 T: 0 QT: 304 QTc: 424 Interpretive Statements Sinus tachycardia Borderline repolarization abnormality Electronically Signed On 09-01-2024 12:35:13 DRILLING [employer]EM[employer] by Omega Silva Procedure Note Omega Silva MD - 09/01/2024 [facility] [address] [place] [address] Test Date: 2024-09-01 Pat Name: JARRELL STEEN Department: 37 Room: [facility] Gender: Male Safety Counselor: shena : 1945 Requested By: Order Number: [id number] Reading MD: Omega Silva Measurements Intervals [place] Rate: 117 P: 7 MN: 147 QRS: 27 QRSD: 89 T: 0 QT: 304 QTc: 424 Interpretive Statements Sinus tachycardia Borderline repolarization abnormality Electronically Signed On 09-01-2024 12:35:13 DRILLING FOREMAN by Omega Silva us Eben Gray DO ECG ORDERABLES Final Result Performing Organization Address City/[facility]/ZIP Co de Phone Number INTERFACE SYSTEM Refer to clinic/hospital department * (ABNORMAL) HEMOGLOBIN A1C (07/30/2024 1:01 PM DRILLING FOREMAN) HEMOGLOBIN A1C 6.2(H) <5.7 % 07/30/2024 8:15 PM DRILLING [employer]EMAN [facility] EST. AVG GLUCOSE, A1C 131 mg/dL 07/30/2024 8:15 PM DRILLING FOREMAN [facility] Blood Venipuncture / Unknown 07/30/2024 1:01 PM [employer]LLING [employer]EM[employer] 07/30/2024 1:23 PM DRILLING [employer]EMAN Narrative [facility] - 07/30/2024 8:15 PM DRILLING FOREMAN HGB A1C INTERPRETATION NORMAL: <5.7% PRE-DIABETES: 5.7 - 6.4% DIABETES: 6.5% OR GREATER Sandhya Garcia MD CHEMISTRY ORDERABLES Final Resul t [facility] CLIA# [id number] [address] [place] [address] from Last 3 Months or Most Recently Relevant to Health Maintenance Insurance MEDICARE PART A AND B MEDICARE PART A AND B [employer] Medicare Part D Advance Directives For more information, please contact: [phone] * Full Code (Latest Code Status on File) Date Activated Date Inactivated Comments 09/01/2024 9:12 AM 09/03/2024 7:41 PM * Full Code Date Activated Date Inactivated Comments 07/30/2024 7:03 PM 08/01/2024 2:50 PM Care Teams Director Targeted Marketing Relationship Specialty Start Date End Date Saw Ga MD [address] [place] [address] PCP - General Family Practice 02/17/19
--- OUTSIDE RECORDS SUMMARY | 2024-11-25 16:40 | XMS_ITS | Encounter Summary ---
Author Organization [facility] Address [address] [place] [address] Care Team Providers Care Rubber Extrusion Machine Operator Name Role Phone Saw Ga MD Primary Care Provider Encounter Details Date Type Department Care Team (Late st Contact Info) Description 12/29/2005 Outpatient Historical [facility] ([facility] Trauma and General Surgery [address] [facility] [address] [address] Delgado Parra MD [address] [place] [address] Social History Tobacco Use Types Packs/Day Years Used Date Smoking Tobacco: Never Assessed Sex and Gender Information Value Date Recorded Sex Assigned at Not on file Legal Sex Male 3:17 AM UTILITY HAND Gender Identity Not on file Sexual Orientation Not on file documented as of this encounter Plan of Treatment Not on file documented as of this encounter Visit Diagnoses Not on filedocumented in this encounter Additional Health Concerns Infection Onset Date Last Indicated Resolved Time R/O C. diff 07/30/2024 07/30/2024 07/31/2024 7:00 PM UTILITY HAND R/O Respiratory 09/01/2024 09/01/2024 09/01/2024 3 :21 AM UTILITY HAND Influenza 09/01/2024 09/01/2024 09/09/2024 1:16 AM UTILITY HAND documented as of this encounter Care Teams Rubber Extrusion Machine Operator Relationship Specialty Start Date End Date Saw Ga MD [address] [place] [address] PCP - General Family Practice 02/17/19 documented as of this encounter
--- OUTSIDE RECORDS SUMMARY | 2024-11-25 16:40 | XMS_ITS | Encounter Summary ---
Author Organization [facility] Address [address] [place] [address] Phone Care Team Providers Care Shoe Handler Name Role Phone Saw Ga MD Primary Care Provider [phone] Devon Carlin MD Unavailable [phone] Juan Alberto Hilario MD Unavailable [phone] Encounter Details Date Type Department Care Team [...] file Legal Sex Male 4:28 AM MANAGER ELIGIBILITY Gender Identity Not on file Sexual Orientation [...] Infection Onset Date Last Indicated Resolved Time COVID: Suspected 11/06/2024 11/06/2024 11/06/2024 2:17 PM CDT COVID: Suspected 11/06/2024 11/06/2024 11/06/2024 3:41 PM CDT C. difficile suspected 11/06/2024 11/07/202411/07 8:36 AM CDT C. difficile Comment:Contact Precautions until patient has completed at least 7 -day course of therapy and has been diarrhea-free for at least 48 hours (whichever is longer) - Ben Cortez BSN, RN 11/11/24 11/07/2024 11/07/2024 documented as of this encounter Care Teams Shoe Handler Relationship Specialty Start Date End Date Saw Ga MD [address] [address] PCP - General 10/20/16 Juan Alberto Hilario MD [address] [place] [address] PCP - Hospice Attending 11/05/24 Devon Carlin MD [address] [facility] DIV IM MEDICAL ONCOLOGY, [address] [place] [address] Medical Oncology 12/21/23 documented as of this encounter
--- OUTSIDE RECORDS SUMMARY | 2024-11-25 16:40 | XMS_ITS | Encounter Summary ---
Author Organization [facility] Address 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 Ori Alonso MD [address] [place] [address] Other Chest Pain (Primary Dx) Social History Tobacco Use Types Packs/Day Years Used Date Smoking Tobacco: Never Assessed Sex and Gender Information Value Date Recorded Sex Assigned at Not on file Legal Sex Male 3:17 AM DAMAGE ASSESSOR Gender Identity Not on file Sexual Orientation Not on file documented as of this encounter Plan of Treatment Not on file documented as of this encounter Visit Diagnoses Diagnosis Other chest pain- Primary documented in this encounter Additional Health Concerns Infection Onset Date Last Indicated Resolved Time R/O C. diff 07/30/2024 07/30/2024 07/31/2024 7:00 PM DAMAGE ASSESSOR R/O Respiratory 09/01/2024 09/01/2024 09/01/2024 3 :21 AM DAMAGE ASSESSOR Influenza 09/01/2024 09/01/2024 09/09/2024 1:16 AM DAMAGE ASSESSOR documented as of this encounter Care Teams Top Screw Relationship Specialty Start Date End Date Saw Ga MD [facility] [place] [address] PCP - General Family Practice 02/17/19 documented as of this encounter
--- OUTSIDE RECORDS SUMMARY | 2024-11-25 16:40 | XMS_ITS | Encounter Summary ---
Author Organization [facility] Address [address] [place] [address] Care Team Providers Care Sheet Metal Mechanic Name Role Phone Saw Ga MD Primary Care Provider Encounter Details Date Type Department Care Team (Late st Contact Info) Description 12/12/2005 Outpatient Historical [facility] Trauma and General Surgery [address] [facility] [address] [address] [place] [address] [place] [address] Social History Tobacco Use Types Packs/Day Years Used Date Smoking Tobacco: Never Assessed Sex and Gender Information Value Date Recorded Sex Assigned at Not on file 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 diff 07/30/2024 07/30/2024 07/31/2024 7:00 PM WEED SPRAYER R/O Respiratory 09/01/2024 09/01/2024 09/01/2024 3 :21 AM WEED SPRAYER Influenza 09/01/2024 09/01/2024 09/09/2024 1:16 AM WEED SPRAYER documented as of this encounter Care Teams Sheet Metal Mechanic Relationship Specialty Start Date End Date Saw Ga MD [address] [place] [address] PCP - General Family Practice 02/17/19 documented as of this encounter
--- OUTSIDE RECORDS SUMMARY | 2024-11-25 16:40 | XMS_ITS | Encounter Summary ---
Author Organization [facility] Address [address] [place] [address] Phone Care Team Providers Care Manager Line Name Role Phone Saw Ga MD Primary Care Provider [phone] Devon Carlin MD Unavailable [phone] Juan Alberto Hilario MD Unavailable [phone] Encounter Details Date Type Department Care Team (Latest Contact Info) Description 06/30/2021 Orders Only [facility] Scanning, Provider Social History Tobacco Use Types Packs/Day Years Used Date Smoking Tobacco: Every Day Cigarettes Smokeless Tobacco: Never Alcohol Use Standard Drinks/Week Comments Yes 6 (1 standard drink = 0.6 oz pur e alcohol) rarely Sex and Gender Information Value Date Recorded Sex Assigned at Not on file 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
--- OUTSIDE RECORDS SUMMARY | 2024-11-25 16:40 | XMS_ITS | Clinical Summary ---
Author Organization [facility] Address [address] [place] [address] Care Team Providers Care Cracker Off Name Role Phone Unavailable Primary Care Provider Unavailabl e Source Comments [facility],non-owned Affiliates and Associated Physician Practices is amultiple site organization consisting of ambulatory clinics and hospital sitesin [place], [place], [place] and [place]. This disclosure is being madepursuant to the Care Everywhere program and may not contain all information available regarding this patient. 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 Gender Identity Not on file Sexual [...] VACCINE ( - 2023-2 5 season) 2024 DEPRESSION SCREENING 07/23/2024 INFLUENZA VACCINE (Season Ended) 2025 HEPATITIS B VACCINE Aged Out No longe r eligible based on patient's age to complete this topic HIB VACCINE Aged Out No longer eligi ble based on patient's age to complete this topic HPV VACCINE Aged Out No longer eligi ble based on patient's age to complete this topic MENINGOCOCCAL (Group B) VACC INE SHARED DECISION-MAKING Aged Out No longer eligibl e based on patient's age to complete this topic MENINGOCOCCAL GROUPS A/C/Y/W VACCINE Aged Out No longer eligible b ased on patient's age to complete this topic Insurance MEDICARE MEDICARE MEDICARE
--- OUTSIDE RECORDS SUMMARY | 2024-11-25 16:40 | XMS_ITS | Encounter Summary ---
Author Organization [facility] Address 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 diff 07/30/2024 07/30/2024 07/31/2024 7:00 PM ROTARY DRILL OPERATOR R/O Respiratory 09/01/2024 09/01/2024 09/01/2024 3 :21 AM ROTARY DRILL OPERATOR Influenza 09/01/2024 09/01/2024 09/09/2024 1:16 AM ROTARY DRILL OPERATOR documented as of this encounter Care Teams Physician Practice Market Manager Relationship Specialty Start Date End Date Saw Ga MD [facility] [place] [address] PCP - General Family Practice 02/17/19 documented as of this encounter
--- OUTSIDE RECORDS SUMMARY | 2024-11-25 16:40 | XMS_ITS | Encounter Summary ---
Author Organization [facility] Address [address] [place] [address] Care Team Providers Care Project Engineer Name Role Phone Saw Ga MD Primary Care Provider [phone] Encounter Details Date Type Department Care Team (Late st Contact Info) Description 12/12/2005 Outpatient Historical [facility] Support [facility]. ([facility]) [address] 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 diff 07/30/2024 07/30/2024 07/31/2024 7:00 PM ENVIRONMENTAL RESOURCE SPECIALIST R/O Respiratory 09/01/2024 09/01/2024 09/01/2024 3 :21 AM ENVIRONMENTAL RESOURCE SPECIALIST Influenza 09/01/2024 09/01/2024 09/09/2024 1:16 AM ENVIRONMENTAL RESOURCE SPECIALIST documented as of this encounter Care Teams Project Engineer Relationship Specialty Start Date End Date Saw Ga MD [address] [place] [address] PCP - General Family Practice 02/17/19 documented as of this encounter
--- OUTSIDE RECORDS SUMMARY | 2024-11-25 16:40 | XMS_ITS | Encounter Summary ---
Author Organization [facility] Address [address] [place] [address] Care Team Providers Care Bar Useful Or Busser Name Role Phone Saw Ga MD Primary Care Provider Encounter Details Date Type Department Care Team (Late st Contact Info) Description 12/13/2005 Outpatient Historical [facility] Trauma and General Surgery [address] [facility] [address] [address] Delgado Parra MD [address] [place] [address] Social History Tobacco Use Types Packs/Day Years Used Date Smoking Tobacco: Never Assessed Sex and Gender Information Value Date Recorded Sex Assigned at Not on file Legal Sex Male 3:17 AM DIRECTOR AGRICULTURAL SERVICES Gender Identity Not on file Sexual Orientation Not on file documented as of this encounter Plan of Treatment Not on file documented as of this encounter Visit Diagnoses Not on filedocumented in this encounter Additional Health Concerns Infection Onset Date Last Indicated Resolved Time R/O C. diff 07/30/2024 07/30/2024 07/31/2024 7:00 PM DIRECTOR AGRICULTURAL SERVICES R/O Respiratory 09/01/2024 09/01/2024 09/01/2024 3 :21 AM DIRECTOR AGRICULTURAL SERVICES Influenza 09/01/2024 09/01/2024 09/09/2024 1:16 AM DIRECTOR AGRICULTURAL SERVICES documented as of this encounter Care Teams Bar Useful Or Busser Relationship Specialty Start Date End Date Saw Ga MD [address] [place] [address] PCP - General Family Practice 02/17/19 documented as of this encounter
--- NOTE | 2024-11-25 16:41 | ECG_ITS ---
Test Date: 2024-11-25 16:45:01 Measurements Intervals [place] Rate: 123 P: 0 WV: 0 QRS: 35 QRSD: 73 T: 27 QT: 299 QTc: 429 Interpretive Statements ATRIAL FIBRILLATION WITH RAPID VENTRICULAR RESPONSE NONSPECIFIC T-WAVE ABNORMALITY ABNORMAL RHYTHM ECG Compared to ECG 08/31/2024 18:33:25 ATRIAL FIBRILLATION REPLACES SINUS RHYTHM Electronically Signed On 11-26-2024 07:15:58 CDT by Ori Alonso M.D.
--- OUTSIDE RECORDS SUMMARY | 2024-11-25 16:41 | XMS_ITS | Clinical Summary ---
Author Organization [facility] [address] Address [address] [place] [address] Care Team Providers Care Home Housekeeper Name Role Phone Saw Ga MD Primary Care Provider [phone] Devon Carlin MD Unavailable [phone] Juan Alberto Hilario MD Unavailable [phone] Allergies Active Allergy Reactions Criticality Noted Date Comments Duloxetine Mental status changes Low 10/27/2024 Metformin Other (See comments) 10/27/2024 Lactic acidosis Docetaxel Shortness of breath,Itching,Dizziness ,Flushing (skin) High 06/12/2024 Significant event note 01/03/24 Trazodone Mental status changes Low 10/27/2024 Medications polyethylene glycol (MIRALAX) 17 gram/dose bulk powderIndicatio ns:constipation Take 17 g by mouth daily 510 g 024 Active lidocaine (LIDODERM) 5 % Apply 1 patch topically daily Remove after 12 hours (need 12 hour patch free period). 10 patch 024 Active acetaminophen (TYLENOL) 500 mg tablet Take 1 tablet (500 mg total) by mouth every 6 (six) hours as needed for pain 30 tablet Active flecainide (TAMBOCOR) 100 mg tablet TOME 1 TABLETA POR VIA ORAL DOS VECES AL REENA 180 tablet 1 Active Additional Information Patient taking differently: 100 mg oral 2 times daily, Reported on 10/30/[address] (NexIUM) 40 mg capsule TOME 1 C PSULA POR V A ORAL A DIARIO Active metoprolol XL (TOPROL-XL) 25 mg extended release tabletIndicatio ns:Essential hypertension TAKE 1 TABLET (25 MG TOTAL) BY MOUTH DAILY. 90 tablet 3 024 2024 Active atorvastatin (LIPITOR) 20 mg tablet TOME MIKY TABLETA TODOS [place] KAY 90 tablet 3 Active lubiprostone (AMITIZA) 24 mcg capsule Active calcium carbonate (TUMS) 500 mg (200 mg elemental calcium) chewable tablet Take 2 tablet/chew tab (1,000 mg total) by mouth 2 (two) times a day 120 tablet/jony w tab Active furosemide (LASIX) 20 mg tablet Take 1 tablet (20 mg total) by mouth daily as needed (swelling) 30 tablet Active bisacodyl EC (DULCOLAX EC) 5 mg EC tabletIndicatio ns:constipation Take 1 tablet (5 mg total) by mouth daily as needed for constipation 30 tablet Active gabapentin (NEURONTIN) 100 mg capsule Take 1 capsule (100 mg total) by mouth 3 (three) times a day 90 capsule 025 2025 Active empagliflozin (JARDIANCE) 10 mg tablet Take 1 tablet (10 mg total) by mouth daily 30 tablet 025 2025 Active folic acid (FOLVITE) 1 mg tablet Take 1 tablet (1 mg total) by mouth daily for 7 doses 7 tablet Active pyridoxine (VITAMIN B-6) 100 mg tablet Take 1 tablet (100 mg total) by mouth daily for 5 doses 5 tablet Active fentaNYL (DURAGESIC) 25 mcg/hrIndicatio ns:Prostate cancer (HCC),Metastasi s to bone (HCC),Cancer related pain Place 1 patch on the skin every third day for 72 hours 10 patch 025 2024 Active OLANZapine (ZyPREXA) 2.5 mg tabletIndicatio ns:Prostate cancer (HCC),Metastasi s to bone (HCC),Physical deconditioning, Cancer related pain Take 1 tablet (2.5 mg total) by mouth nightly 30 tablet 025 2024 Active al & mag hydroxide simethicone-dip henhydramine-li docaine-nystati n (MAGIC MOUTHWASH) suspension 9-3-1-1Indicati ons:Prostate cancer (HCC),Metastasi s to bone (HCC),Physical deconditioning, Cancer related pain Swish and swallow 15 mL every 4 (four) hours as needed (For Tx related sore-throat and potential mouth sores) 500 mL 3 025 Active senna-docusate (PERICOLACE) 8.6-50 mg Take 2 tablets by mouth 2 (two) times a day Active dexAMETHasone (DECADRON) 4 mg tablet Take 1 tablet (4 mg total) by mouth 2 (two) times a day Active melatonin 5 mg tablet Take 1 tablet (5 mg total) by mouth daily 30 tablet 025 Active senna-docusate (PERICOLACE) 8.6-50 mg Take 1 tablet by mouth daily 8 tablet 024 2024 Discontinued metFORMIN XR (GLUCOPHAGE XR) 500 mg 24 hr tabletIndicatio ns:type 2 diabetes mellitus Take 1 tablet (500 mg total) by mouth daily with breakfast 30 tablet 024 2024 Discontinued( Stop Taking at Discharge) docusate sodium (COLACE) 100 mg capsule TOME 1 C PSULA POR V A ORAL DOS VECES AL D A 024 2024 Discontinued( Stop Taking at Discharge) oxyCODONE-aceta minophen (PERCOCET) 10-325 mg per tablet TOME MIKY TABLETA POR V A ORAL CADA SEIS HORAS CUANDO SEA NECESARIO PARA EL DOLOR 024 2024 Discontinued( Stop Taking at Discharge) dexAMETHasone (DECADRON) 4 mg tabletIndicatio ns:Prostate cancer (HCC),Prostate cancer metastatic to bone (HCC),Hypersens itivity reaction, initial encounter Take 1 tablet (4 mg total) by mouth daily Take one tablet (4 mg) the night before chemotherapy, take one tablet (4 mg) the morning of chemotherapy for the prevention of infusion reactions. 24 tablet 024 2024 Discontinued( Duplicate order) prochlorperazin e (Compazine) 10 mg tabletIndicatio ns:Prostate cancer (HCC),Metastasi s to bone (HCC) Take 1 tablet (10 mg total) by mouth every 6 (six) hours as needed for nausea or vomiting 120 tablet 3 025 2024 Discontinued dexAMETHasone (DECADRON) 4 mg tablet Take 1 tablet (4 mg total) by mouth 3 (three) times a day 90 tablet 2024 Discontinued( Duplicate order) potassium phosphate, monobasic, (K-PHOS) 500 mg (3.6 mmol of phosphorus) tablet Take 1 tablet (500 mg total) by mouth 2 (two) times a day 60 tablet 025 2024 Discontinued( Stop Taking at Discharge) semaglutide (RYBELSUS) 3 mg tablet Take 1 tablet (3 mg total) by mouth dictionary editor before breakfast 30 tablet 025 2024 Discontinued( Stop Taking at Discharge) senna-docusate (PERICOLACE) 8.6-50 mg Take 2 tablets by mouth 2 (two) times a day 60 tablet 025 2024 Discontinued oxyCODONE (ROXICODONE) 10 mg tabletIndicatio ns:Pain Take 1 tablet (10 mg total) by mouth every 6 (six) hours as needed for pain for up to 7 days 28 tablet 025 2024 thiamine (VITAMIN B1) 100 mg tablet Take 1 tablet (100 mg total) by mouth daily for 7 doses 7 tablet 025 2024 Discontinued( Stop Taking at Discharge) dexAMETHasone (DECADRON) 4 mg tabletIndicatio ns:Prostate cancer (HCC),Metastasi s to bone (HCC),Persons encountering health services in other specified circumstances Take 8 mg (2 tabs) by mouth once on Day 2, then 8 mg (2 tabs) twice daily on Days 3 and 4. 30 tablet 3 025 2024 Discontinued ondansetron (ZOFRAN) 8 mg tabletIndicatio ns:Prostate cancer (HCC),Metastasi s to bone (HCC),Persons encountering health services in other specified circumstances Take 1 tablet (8 mg total) by mouth every 8 (eight) hours as needed for nausea or vomiting Use if prochlorperazine does not stop nausea. 24 tablet 3 2024 Discontinued prochlorperazin e (Compazine) 10 mg tabletIndicatio ns:Prostate cancer (HCC),Metastasi s to bone (HCC),Persons encountering health services in other specified circumstances Take 1 tablet (10 mg total) by mouth every 6 (six) hours as needed for nausea or vomiting Use first for nausea. 120 tablet 3 2024 Discontinued al & mag hydroxide simethicone-dip henhydramine-li docaine-nystati n (MAGIC MOUTHWASH) suspension 4-3-6-1Indicati ons:Prostate cancer (HCC),Metastasi s to bone (HCC),Physical deconditioning, Cancer related pain Swish and swallow 15 mL every 4 (four) hours as needed (For Tx related sore-throat and potential mouth sores) 500 mL 3 2024 Discontinued( Reorder) fidaxomicin (DIFICID) tabletIndicatio ns:Clostridioid es difficile infection Take 1 tablet (200 mg total) by mouth 2 (two) times a day 20 tablet 2024 Discontinued( Stop Taking at Discharge) vancomycin (VANCOCIN) 125 mg capsuleIndicati ons:Clostridioi ford difficile infection Take 1 capsule (125 mg total) by mouth 4 (four) times a day 40 capsule 025 2024 Discontinued( Stop Taking at Discharge) vancomycin (VANCOCIN) 125 mg capsuleIndicati ons:Clostridioi ford difficile infection Take 1 capsule (125 mg total) by mouth 4 (four) times a day for 30 doses 30 capsule 025 2024 ramelteon (ROZEREM) 8 mg tabletIndicatio ns:Sleep-Onset Insomnia Take 1 tablet (8 mg total) by mouth nightly 30 tablet 025 2024 Discontinued( Stop Taking at Discharge) Active Problems Problem Noted Date Diagnosed Date Nausea and vomiting 11/08/2024 Assessment & Plan (11/09/2024 1:17 PM CDT): Patient with nausea, vomiting and abdominal pain at home. CT A/P on admission with possible gastric outlet obstruction, although his C.diff infection could have been contributing as well - Nausea and vomiting have resolved, and patient tolerating solid food, making a GOO less likely at this time - hold off on biliary consult for now and will continue monitoring Assessment & Plan (11/08/2024 10:51 AM CDT): Patient with nausea, vomiting and abdominal pain at home. CT A/P on admission with possible gastric outlet obstruction, although his C.diff infection could have been contributing as well - Nausea and vomiting have resolved, and patient tolerating solid food (potatoes and chicken tenders), making a GOO less likely at this time - hold off on biliary consult for now and will continue monitoring Clostridium difficile infection 11/06/2024 Assessment & Plan (11/09/2024 1:17 PM CDT): Presenting from [facility] with two days of nausea, vomiting, diarrhea, abd pain, poor po intake. With elevated lactic acid but otherwise hemodynamically stable and non- toxic appearing. Similar presentation earlier this month also with elevated lactic. CT AP with duodenitis and some gastric distention but otherwise unremarkable and stable chronic findings. RVP negative, given IVF. Cdiff+ appears to be uncomplicated first infection iso ongoing chemo. Unlikely asx colonization given clx sxs, recent chemo and abx. Elevated Lactic is chronic iso prostate cancer and no response to fluids further going against sepsis picture. - received Fidaxomicin 11/07, but very costly. Vancomycin QID more affordable, so switched to this 11/08 to complete a 10 day total course - hold bowel reg, home Lubipristone - encourage PO, CTM fluid status Assessment & Plan (11/08/2024 10:51 AM CDT): Presenting from [facility] with two days of nausea, vomiting, diarrhea, abd pain, poor po intake. With elevated lactic acid but otherwise hemodynamically stable and non- toxic appearing. Similar presentation earlier this month also with elevated lactic. CT AP with duodenitis and some gastric distention but otherwise unremarkable and stable chronic findings. RVP negative, given IVF. Cdiff+ appears to be uncomplicated first infection iso ongoing chemo. Unlikely asx colonization given clx sxs, recent chemo and abx. Elevated Lactic is chronic iso prostate cancer and no response to fluids further going against sepsis picture. - received Fidaxomicin 11/07, but very costly. Vancomycin QID more affordable, so switched to this 11/08 to complete a 10 day total course - hold bowel reg, home Lubipristone - encourage PO, CTM fluid status Assessment & Plan (11/07/2024 10:37 AM CDT): Presenting from [facility] with two days of nausea, vomiting, diarrhea, abd pain, poor po intake. With elevated lactic acid but otherwise hemodynamically stable and non- toxic appearing. Similar presentation earlier this month also with elevated lactic. CT AP with duodenitis and some gastric distention but otherwise unremarkable and stable chronic findings. RVP negative, given IVF. Cdiff+ appears to be uncomplicated first infection iso ongoing chemo. Unlikely asx colonization given clx sxs, recent chemo and abx. Elevated Lactic is chronic iso prostate cancer and no response to fluids further going against sepsis picture. - start Fidaxomycin (EOT 11/17); rader check - hold bowel reg, home Lubipristone - encourage PO, CTM fluid status Assessment & Plan (11/06/2024 9:11 PM CDT): Presenting from [facility] with two days of nausea, vomiting, diarrhea, abd pain, poor po intake. With elevated lactic acid but otherwise hemodynamically stable and non- toxic appearing. Similar presentation earlier this month also with elevated lactic. CT AP with duodenitis and some gastric distention but otherwise unremarkable and stable chronic findings. Likely secondary to chemotherapy or disease progression. Blood cultures obtained in clinic, RVP negative, given IVF - follow blood cultures, UA, stool studies, defer abx for now - symptomatic management, gentle IVF while unable to tolerate PO, monitor fluid status - monitor bowel movements, currently with diarrhea but issues with constipation previously and was on lubiprostone Edema 11/06/2024 Assessment & Plan (11/09/2024 1:17 PM CDT): Prior issues with LE edema, pleural effusions. TTE EF 71% and normal diastolic function. Possible related to malignancy. Is on prn lasix at home. CT here with improved pleural effusions. On room air, currently appears euvolemic - hold lasix, monitor fluid status Assessment & Plan (11/08/2024 10:51 AM CDT): Prior issues with LE edema, pleural effusions. TTE EF 71% and normal diastolic function. Possible related to malignancy. Is on prn lasix at home. CT here with improved pleural effusions. On room air, currently appears euvolemic - hold lasix, monitor fluid status Assessment & Plan (11/07/2024 11:33 AM CDT): Prior issues with LE edema, pleural effusions. TTE EF 71% and normal diastolic function. Possible related to malignancy. Is on prn lasix at home. CT here with improved pleural effusions. On room air, currently appears euvolemic - hold lasix, monitor fluid status Assessment & Plan (11/06/2024 9:14 PM CDT): Prior issues with LE edema, pleural effusions. TTE EF 71% and normal diastolic function. Possible related to malignancy. Is on prn lasix at home. CT here with improved pleural effusions. On room air, currently appears euvolemic - hold lasix, monitor fluid status Mouth pain 11/06/2024 Assessment & Plan (11/09/2024 1:17 PM CDT): Complaints of mouth pain, difficulty with PO intake. Exam with likely small ulcerations, does not appear to be flaky/patchy indicative of candidiasis at this time - magic mouthwash prn Assessment & Plan (11/08/2024 10:51 AM CDT): Complaints of mouth pain, difficulty with PO intake. Exam with likely small ulcerations, does not appear to be flaky/patchy indicative of candidiasis at this time - magic mouthwash prn Assessment & Plan (11/07/2024 11:33 AM CDT): Complaints of mouth pain, difficulty with PO intake. Exam with likely small ulcerations, does not appear to be flaky/patchy indicative of candidiasis at this time - magic mouthwash prn - start nystatin swishes if concern for thrush develops Assessment & Plan (11/06/2024 9:14 PM CDT): Complaints of mouth pain, difficulty with PO intake. Exam with likely small ulcerations, does not appear to be flaky/patchy indicative of candidiasis at this time - magic mouthwash prn - start nystatin swishes if concern for thrush develops Persons encountering health services in other specified circumstances 10/28/2024 Hypocalcemia 10/27/2024 Assessment & Plan (10/28/2024 11:43 AM CDT): iCa 3.3. Vit D 25-OH wnl 5.6. PTH 252. -likely from denosumab (last on 10/16/24) -Trend iCa daily. On daily supplement and replete prn Right groin pain 10/27/2024 Assessment & Plan (10/28/2024 11:43 AM CDT): -Site of prior right inguinal hernia surgery is very tender. Exam is benign. Likely from underlying scar tissue. Start voltaren 10/27 Hydronephrosis of left kidney 10/26/2024 Assessment & Plan (11/09/2024 1:17 PM CDT): Chronic, noted on previous imaging and stable here. Cr mildly elevated in setting of above - OP nephro f/u Assessment & Plan (11/08/2024 10:51 AM CDT): Chronic, noted on previous imaging and stable here. Cr mildly elevated in setting of above - OP nephro f/u Assessment & Plan (11/07/2024 11:33 AM CDT): Chronic, noted on previous imaging and stable here. Cr mildly elevated in setting of above - OP nephro f/u Assessment & Plan (11/06/2024 9:14 PM CDT): Chronic, noted on previous imaging and stable here. Cr mildly elevated in setting of above - OP nephro f/u Assessment & Plan (10/28/2024 11:43 AM CDT): Chronic, noted on previous imaging. Seen by urology 03/18/24. No intervention recommended. Has appointment with nephrology on 11/06/23 -Continue to monitor Cr. Currently at baseline Cauda equina compression 10/26/2024 Assessment & Plan (11/09/2024 1:17 PM CDT): MRI L spine 4/3 showed spine mets leading to compression of the cauda equina nerve roots at L5-S1. Moderate to severe left L5-S1 neuroforaminal stenosis. Was evaluated by orthopedics surgery, radiation Oncology and Medical Oncology during prior hospitalization. On chemo and planned for OP XRT (completed simulation). Has bilateral leg/foot pain and neuropathy, currently at baseline. - wean decadron 4mg TID to BID 11/08 - pain control with gabapentin and prn tylenol, oxycodone Assessment & Plan (11/08/2024 10:51 AM CDT): MRI L spine 4/3 showed spine mets leading to compression of the cauda equina nerve roots at L5-S1. Moderate to severe left L5-S1 neuroforaminal stenosis. Was evaluated by orthopedics surgery, radiation Oncology and Medical Oncology during prior hospitalization. On chemo and planned for OP XRT (completed simulation). Has bilateral leg/foot pain and neuropathy, currently at baseline. - wean decadron 4mg TID to BID 11/08 - pain control with gabapentin and prn tylenol, oxycodone Assessment & Plan (11/07/2024 11:33 AM CDT): MRI L spine 4/3 showed spine mets leading to compression of the cauda equina nerve roots at L5-S1. Moderate to severe left L5-S1 neuroforaminal stenosis. Was evaluated by orthopedics surgery, radiation Oncology and Medical Oncology during prior hospitalization. On chemo and planned for OP XRT (completed simulation). Has bilateral leg/foot pain and neuropathy, currently at baseline. - cont home decadron 4mg TID - pain control with gabapentin and prn tylenol, oxycodone Assessment & Plan (11/06/2024 9:11 PM CDT): MRI L spine 4/3 showed spine mets leading to compression of the cauda equina nerve roots at L5-S1. Moderate to severe left L5-S1 neuroforaminal stenosis. Was evaluated by orthopedics surgery, radiation Oncology and Medical Oncology during prior hospitalization. On chemo and planned for OP XRT (completed simulation). Has bilateral leg/foot pain and neuropathy, currently at baseline. - cont home decadron 4mg TID - pain control with gabapentin and prn tylenol, oxycodone Assessment & Plan (10/28/2024 11:43 AM CDT): MRI L spine 4/3 showed spine mets leading to compression of the cauda equina nerve roots at L5-S1. Moderate to severe left L5-S1 neuroforaminal stenosis. Currently 4+/5 strength RLE, otherwise strength intact, no incontinence - Seen by ortho, rad onc, med onc. - Continue dexamethasone 4 mg t.i.d. - Rad onc cs - planned for L5/sacrum radiation x1 outpatient Lactic acidosis, type b 10/25/2024 Assessment & Plan (11/09/2024 1:17 PM CDT): Lactic 4 in CC, not hypotensive. Prev admission thought metformin may be contributing and discontinued. Likely 2/2 malignancy. Persistent off Metformin, not fluid responsive-- supporting malignancy related. - Manage underlying prostate cancer Assessment & Plan (11/08/2024 10:51 AM CDT): Lactic 4 in CC, not hypotensive. Prev admission thought metformin may be contributing and discontinued. Likely 2/2 malignancy. Persistent off Metformin, not fluid responsive-- supporting malignancy related. - Manage underlying prostate cancer Assessment & Plan (11/07/2024 10:37 AM CDT): Lactic 4 in CC, not hypotensive. Prev admission thought metformin may be contributing and discontinued. Possibly component of inflammation, malignancy. Persistent off Metformin, not fluid responsive-- supporting malignancy related. - Manage underlying prostate cancer Assessment & Plan (11/06/2024 9:11 PM CDT): Lactic 4 in CC, not hypotensive. Prev admission thought metformin may be contributing and discontinued. Possibly component of inflammation, malignancy - cont IVF - repeat lactic - ensure patient is no longer taking metformin on DC Assessment & Plan (10/28/2024 11:43 AM CDT): Lactate up to 6.3. no baseline, no improvement w IVF. Looks euvolemic and clinically well. No kidney/liver failure. There was some concern for occult infection but work up is negative so far. Ddx also include from metformin and his cancer. Low c/f mesenteric ischemia. -Workup with wnl beta-hydroxybutyrate, VBG, carboxyHgb, salicylate, Etoh - Stop metformin indefinitely. SIRS (systemic inflammatory response syndrome) 0 10/25/2024 Assessment & Plan (10/28/2024 11:43 AM CDT): RR>20, Tmax 100.4. WBC 12 but also on steroids. No localizing sx. Abdominal pain but CT AP benign. Could potentially be inflammatory response from constipation - BLE dopplers negative. - UA, RVP and Bcx (10/25) x 2 NGTD - Vanc/cefe (10/25- 10/26) were quickly discontinued after Bcx NGTD x 48 hours. Acute heart failure with pre served ejection fraction (HFpEF) 10/22/2024 Assessment & Plan (10/24/2024 5:52 PM CDT): - See above Assessment & Plan (10/23/2024 4:32 PM CDT): - See above Assessment & Plan (10/22/2024 4:39 PM CDT): - See above Cancer associated pain 10/22/2024 Assessment & Plan (10/28/2024 11:43 AM CDT): - Continue oxycodone 10 mg q 6 hours prn - Start gabapentin 100 mg TID. Can uptitrate outpt if pt tolerates well. - APAP 1g TID - Radiation, as above Assessment & Plan (10/24/2024 5:52 PM CDT): - APAP 1g Q6 - Oxy-IR prn 1st line Assessment & Plan (10/23/2024 4:32 PM CDT): - APAP 1g Q6 - Oxy-IR prn 1st line Assessment & Plan (10/22/2024 4:39 PM CDT): - APAP 1g Q6 - Oxy-IR prn 1st line - Dilaudid IV prn 2nd line Hypophosphatemia 10/22/2024 Assessment & Plan (10/24/2024 5:52 PM CDT): - Replace per protocol Assessment & Plan (10/23/2024 4:32 PM CDT): - Replace per protocol Assessment & Plan (10/22/2024 4:41 PM CDT): - Replace per protocol Weakness of right lower extremity 10/20/2024 Assessment & Plan (10/24/2024 5:52 PM CDT): - Generalized weakness 2/2 age, malignancy, and pain. - Evaluation per above - Currently strength 5/5 - PT/OT c/s - See above Assessment & Plan (10/23/2024 4:32 PM CDT): - Generalized weakness 2/2 age, malignancy, and pain. - Evaluation per above - Currently strength / - PT/OT c/s - See above Assessment & Plan (10/22/2024 4:39 PM CDT): - Unclear if directly from osseous mets over R femoral region vs trauma/fracture - Evaluation per above T2DM (type 2 diabetes mellitus) 10/20/2024 Assessment & Plan (11/09/2024 1:17 PM CDT): Previously on metformin but discontinued as thought possibly contributing to lactic acidosis. Was discharged on jardiance - cont jardiance, SSI Assessment & Plan (11/08/2024 10:51 AM CDT): Previously on metformin but discontinued as thought possibly contributing to lactic acidosis. Was discharged on jardiance - cont jardiance, SSI Assessment & Plan (11/07/2024 11:33 AM CDT): Previously on metformin but discontinued as thought possibly contributing to lactic acidosis. Was discharged on jardiance - cont jardiance, SSI Assessment & Plan (11/06/2024 9:11 PM CDT): Previously on metformin but discontinued as thought possibly contributing to lactic acidosis. Was discharged on jardiance - cont jardiance, SSI Assessment & Plan (10/28/2024 11:43 AM CDT): - A1c 5.5, but on high dose steroids. - Stop metformin indefinitely given - Start Jardiance as pt is on high dose steroids. - Follow up with PCP Assessment & Plan (10/24/2024 5:52 PM CDT): - Hold metformin, check A1c (none in system) Assessment & Plan (10/23/2024 4:32 PM CDT): - Hold metformin, check A1c (none in system) Assessment & Plan (10/22/2024 4:39 PM CDT): - Hold metformin, check A1c (none in system) Lower extremity edema 10/19/2024 Assessment & Plan (10/24/2024 5:52 PM CDT): Ongoing x several weeks per patient; denies dyspnea or orthopnea - Evaluation with stable BMP, pBNP 2279 (no prior), and hs-trop negative - likely acute HFpEF iso Afib/RVR - s/p lasix in the ED - Strict I/O, Daily weights - echo showed LV hypertrophy, normal EF, normal diastolic function, no regional WMA - Lasix prn - Resolved Assessment & Plan (10/23/2024 4:32 PM CDT): Ongoing x several weeks per patient; denies dyspnea or orthopnea - Evaluation with stable BMP, pBNP 2279 (no prior), and hs-trop negative - likely acute HFpEF iso Afib/RVR - s/p lasix in the ED - Strict I/O, Daily weights - echo showed LV hypertrophy, normal EF, normal diastolic function, no regional WMA - Lasix prn - Resolved Assessment & Plan (10/22/2024 4:39 PM CDT): Ongoing x several weeks per patient; denies dyspnea or orthopnea - Evaluation with stable BMP, pBNP 2279 (no prior), and hs-trop negative - likely acute HFpEF iso Afib/RVR - s/p lasix in the ED - Strict I/O, Daily weights - echo showed LV hypertrophy, normal EF, normal diastolic function, no regional WMA - Lasix prn Moderate malnutrition 01/19/2024 Assessment & Plan (01/19/2024 1:17 PM [...] diet and return precautions Metastasis to bone 12/27/2023 Prostate cancer 12/27/2023 Constipation 12/19/2023 Assessment & Plan (10/24/2024 5:52 PM CDT): - Cont lubiprostone, miralax, doc/senna, lactulose - Consider Movantik for opioid-induced constipation Assessment & Plan (10/23/2024 4:32 PM CDT): - Cont lubiprostone, miralax, doc/senna, lactulose - Consider Movantik for opioid-induced constipation Assessment & Plan (10/22/2024 4:39 PM CDT): - Cont lubiprostone, miralax, doc/senna - start lactulose Assessment & Plan (12/19/2023 3:51 AM CDT): Last BM two days prior to presentation - Scheduled and PRN bowel reg Prostate cancer 11/22/2023 Cancer Staging:Clinical stage from 12/27/2023: cT3, cN0, cM0, PSA: 58 - Signed by Devon Carlin MD on 12/27/2023 Assessment & Plan (11/09/2024 1:17 PM CDT): Follows Dr. Carlin. Progressive prostate cancer through multiple therapies, currently on C1 carboplatin and cabazitaxel on 10/30/24. Has had prior discussions regarding hospice but pt and family pursuing therapy for now - oncology following. Taper steroids to BID for now Assessment & Plan (11/08/2024 10:51 AM CDT): Follows Dr. Carlin. Progressive prostate cancer through multiple therapies, currently on C1 carboplatin and cabazitaxel on 10/30/24. Has had prior discussions regarding hospice but pt and family pursuing therapy for now - oncology following. Taper steroids to BID for now Assessment & Plan (11/07/2024 11:33 AM CDT): Follows Dr. Carlin. Progressive prostate cancer through multiple therapies, currently on C1 carboplatin and cabazitaxel on 10/30/24. Has had prior discussions regarding hospice but pt and family pursuing therapy for now - [facility] onc consult in AM; steroid taper plan Assessment & Plan (11/06/2024 9:11 PM CDT): Follows Dr. Carlin. Progressive prostate cancer through multiple therapies, currently on C1 carboplatin and cabazitaxel on 10/30/24. Has had prior discussions regarding hospice but pt and family pursuing therapy for now - [facility] onc consult in AM Assessment & Plan (10/28/2024 11:43 AM CDT): Follows Dr. Carlin. Progressive prostate cancer through multiple therapies (abiaterone, decetaxel, both discontinued due to progression), and current therapy includes leuprolide, xgeva, cabi coulazitaxel (not started yet). Last PET CT 10/23 showed widespread concordant hypermetabolic and PSMA overexpressing osseous metastatic disease involving nearly the entire axial and appendicular skeleton. Also with discordant disease elsewhere that does not demonstrate significant PSMA overexpression c/f clonal selection and concomitant dedifferentiation/neuroendocrine differentiation. - Patient was scheduled to start cabazitaxel therapy on 10/30. No plan for inpt therapy - Follow up with Dr Carlin on 10/30 - Rad onc to schedule outpatient radiation to L-spine/sacrum x 1 fx. Assessment & Plan (10/24/2024 5:52 PM CDT): - Follows with Dr. Carlin with progression through multiple therapies, most recently noted on PET on 10/10 - Patient had outpatient biopsy scheduled for 10/22 (was able to perform while inpatient) - FGD PET/CT (10/23) - widespread concordant hypermetabolic and PSMA overexpressing osseous metastatic disease involving nearly the entire axial and appendicular skeleton. Also with discordant disease with intensely hypermetabolic retroperitoneal the, and hepatic that does not demonstrate significant PSMA overexpression c/f clonal selection and concomitant dedifferentiation/neuroendocrine differentiation. In addition, has multiple areas of hypermetabolic epidural and anterior paravertebral/soft tissue within L3 and L5 vertebral bodies. MRI recommended to evaluate for cord compression. - Based on history and examination, currently have low concern for cord compression so will not empirically treat with dexamethasone - L-spine MRI - diffuse metastatic disease with ventral epidural enhancement extending from L5 to the visualize the sacrum resulting in compression of the cauda equina nerve roots at L5-S1. Partially evaluated To lesion at the level of S3, likely representing additional metastatic disease. Moderate to severe left L5-S1 neuroforaminal stenosis. - Orthopedic spine consult - no surgical intervention recommended - Radiation Oncology consult - plan for outpatient radiation - Oncology consult recommends outpatient chemotherapy - Patient started on dexamethasone 10 mg f/b 4 mg Q 6. Will discharge patient on dexamethasone 4 mg t.i.d.. Assessment & Plan (10/23/2024 4:32 PM CDT): - Follows with Dr. Carlin with progression through multiple therapies, most recently noted on PET on 10/10 - Patient had outpatient biopsy scheduled for 10/22 (was able to perform while inpatient) - FGD PET/CT (10/23) - widespread concordant hypermetabolic and PSMA overexpressing osseous metastatic disease involving nearly the entire axial and appendicular skeleton. Also with discordant disease with intensely hypermetabolic retroperitoneal the, and hepatic that does not demonstrate significant PSMA overexpression c/f clonal selection and concomitant dedifferentiation/neuroendocrine differentiation. In addition, has multiple areas of hypermetabolic epidural and anterior paravertebral/soft tissue within L3 and L5 vertebral bodies. MRI recommended to evaluate for cord compression. - Based on history and examination, currently have low concern for cord compression so will not empirically treat with dexamethasone - L-spine MRI - pending Assessment & Plan (10/22/2024 4:39 PM CDT): - Follows with Dr. Carlin with progression through multiple therapies, most recently noted on PET on 10/10 - Patient had outpatient biopsy scheduled for 10/22 (was able to perform while inpatient) - FGD PET/CT (10/23) - pending Assessment & Plan (01/19/2024 1:10 PM CDT): [...] Plan (12/21/2023 12:21 PM CDT): Follows with [facility] oncology for prostate cancer, initially diagnosed T3N0 05/2021, s/p biopsy with od score 8,9,10 adeno in 6/12 cores. S/p [...] outpatient follow-up with the oncologist here at [facility]. Oncology to arrange follow-up at discharge Assessment & Plan (11/22/2023 2:52 PM CDT): Sees oncologist Trent Nicholas (last September 2023) Continue Lupron monthly Xgeva and PRN Tramadol for pain Anemia of chronic disease 11/22/2023 Assessment & Plan (10/24/2024 5:52 PM CDT): - Near baseline ~9 - Transfuse to keep Hb > 7 Assessment & Plan (10/23/2024 4:32 PM CDT): - Near baseline ~9 - Transfuse to keep Hb > 7 Assessment & Plan (10/22/2024 4:39 PM CDT): - Near baseline ~9 - Transfuse to keep Hb > 7 Assessment & Plan (12/19/2023 3:54 AM CDT): Hgb 8.9 in setting of cancer. Not bleeding at this time. Appears on Procrit per outpatient oncologist despite cancer? 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 Procrit 20,000 units on a biweekly basis. iron to 65 mg twice a day. Confusion likely from Polypharmacy 11/22/2023 Assessment & Plan (10/28/2024 11:43 AM CDT): A bit confused lately. 1 son reported confusion when oxyIR is taken 3-4x/day, but NORMA Reveles denies this, says it was duloxetine and trazodone that made pt hallucinate and confused. bMRI 09/23/24 only noted calvarial mets, stable. - TSH wnl. B12 wnl. Copper pending. - Duloxetine and trazadone were discontinued. - Delirium precautions - RESOLVED Assessment & Plan (11/22/2023 2:55 PM CDT): Home medications reviewed- holding coumadin Discharge planning issues 11/22/2023 Assessment & Plan (11/23/2023 2:35 PM CDT): 11/21 BI consult ordered patient has cleared for home with family and home health PT/OT GERD (gastroesophageal reflux disease) Assessment & Plan (11/09/2024 1:17 PM CDT): - sub home esomeprazole for formulary pantoprazole Assessment & Plan (11/08/2024 10:51 AM CDT): - sub home esomeprazole for formulary pantoprazole Assessment & Plan (11/07/2024 11:33 AM CDT): - sub home esomeprazole for formulary pantoprazole Assessment & Plan (11/06/2024 9:11 PM CDT): - sub home esomeprazole for formulary pantoprazole Assessment & Plan (10/28/2024 11:43 AM CDT): Continue PPI Assessment & Plan (10/24/2024 5:52 PM CDT): - Cont PPI Assessment & Plan (10/23/2024 4:32 PM CDT): - Cont PPI Assessment & Plan (10/22/2024 4:39 PM CDT): - Cont PPI Assessment & Plan (12/19/2023 3:51 AM CDT): - Formulary equivalent PPI Assessment & Plan (11/22/2023 3:08 PM CDT): Continue PPI Subdural hematoma 11/21/2023 Assessment & Plan (01/17/2024 10:23 PM CDT): Managed conservatively at prior admission. Not on AC as a result. No focal deficits. Assessment & Plan (12/19/2023 3:48 AM CDT): Recent admission for SDH. Repeat HCT and bMRI without new or worsened bleed. Evaluated by NSGY in ED without any operative plans. - Discussed with beverley GIBSON with [facility] for DVT ppx Assessment & Plan (11/22/2023 2:54 PM CDT): Neurosurgery team for 3 mm R frontal SDH, which was managed non-operatively, and followed with stable serial imaging. This patient was staffed with Dr. Avendano The patient should be seen in clinic in 4-6 weeks with a non-contrast head CT. OK for [facility] for DVT prophylaxis and Q4H NC. Hold home coumadin until follow up outpatient with repeat non-con head CT -BI consult Encounter for monitoring flecainide therapy 03/2024 Hematuria 02/09/2022 History of 2019 novel coronavirus disease (COVID -19) 02/26/2020 Tobacco abuse 05/05/2019 Recurrent falls 09/06/2017 Assessment & Plan (10/24/2024 5:52 PM CDT): Patient with prolonged history of recurrent falls with prior SDH in 11/2023, most recently evaluated earlier this month. Son reports most recent fall 4d ago without head trauma or LOC. Patient states he thinks he falls because his R leg gives out, denies dizziness preceding falls - patient with ongoing RLE pain, unclear chronicity of weakness - Evaluate with CT Lumbar Spine and Pelvis to rule out fracture/worsening mets - > No acute fracture - Cont oxycodone for pain control - PT/OT Assessment & Plan (10/23/2024 4:32 PM CDT): Patient with prolonged history of recurrent falls with prior SDH in 11/2023, most recently evaluated earlier this month. Son reports most recent fall 4d ago without head trauma or LOC. Patient states he thinks he falls because his R leg gives out, denies dizziness preceding falls - patient with ongoing RLE pain, unclear chronicity of weakness - Evaluate with CT Lumbar Spine and Pelvis to rule out fracture/worsening mets - > No acute fracture - Cont oxycodone for pain control - PT/OT Assessment & Plan (10/22/2024 4:39 PM CDT): Patient with prolonged history of recurrent falls with prior SDH in 11/2023, most recently evaluated earlier this month. Son reports most recent fall 4d ago without head trauma or LOC. Patient states he thinks he falls because his R leg gives out, denies dizziness preceding falls - patient with ongoing RLE pain, unclear chronicity of weakness - Evaluate with CT Lumbar Spine and Pelvis to rule out fracture/worsening mets - > No acute fracture - Cont oxycodone for pain control - PT/OT Chest pain 09/06/2017 Atrial fibrillation 09/13/2011 Overview (10/27/2016): Atrial fibrillation Assessment & Plan (11/09/2024 1:17 PM CDT): Not on AC OP due to falls - cont home metop, flecainide Assessment & Plan (11/08/2024 10:51 AM CDT): Not on AC OP due to falls - cont home metop, flecainide Assessment & Plan (11/07/2024 11:33 AM CDT): Not on AC OP due to falls - cont home metop, flecainide Assessment & Plan (11/06/2024 9:11 PM CDT): Not on AC OP due to falls - cont home metop, flecainide Assessment & Plan (10/28/2024 11:43 AM CDT): Sinus rhythm on admission. Not on AC at home due to recurrent falls and prior SDH 11/2023. Railroad Car Checker discussed Watchman device 02/13/24 but pt deferred. - Continue home metoprolol, flecainide. Assessment & Plan (10/24/2024 5:52 PM CDT): - Cont metoprolol, flecainide - Removed from DOAC due to recurrent falls - Currently in NSR Assessment & Plan (10/23/2024 4:32 PM CDT): - Cont metoprolol, flecainide - Removed from DOAC due to recurrent falls - Currently in NSR Assessment & Plan (10/22/2024 4:39 PM CDT): - Cont metoprolol, flecainide - Removed from DOAC due to recurrent falls - Currently in NSR Assessment & Plan (01/17/2024 7:25 PM CDT): Paroxysmal. Currently not on anticoagulation due to recent SDH. NSR on presentation. - continue home beta-chace, flecainide Assessment & Plan (12/19/2023 3:50 AM CDT): On metoprolol and flecanide at home - Continue home meds Assessment & Plan (11/22/2023 3:06 PM CDT): Holding home Coumadin, continue metoprolol for rate control Railroad Car Checker Dr Escamilla aware (11/21) plan for watchman in the future Resolved Problems Problem Noted Date Diagnosed Date Resolved Date Lower abdominal pain 10/25/2024 025 Assessment & Plan (10/28/2024 11:43 AM CDT): Lactic acid elevated but CT A/P showed no acute abdominal process. Suspect from constipation. Resolved after normal Bms 10/26 -Continue bowel regimen Acute nonintractable headach e, unspecified headache type 12/18/2023 10/20/2024 Assessment & Plan (12/21/2023 12:21 PM CDT): [...] q4h PRN at discharge with bowel regimen. Moderate protein-calorie malnutrition 11/22/2023 10/20/2024 Essential hypertension 08/17/202210/20 Assessment & Plan (10/22/2024 4:39 PM CDT): - Metoprolol Assessment & Plan (01/19/2024 1:08 PM CDT): - Continue home metoprolol - Increase home amlodipine dose to 5mg daily - discontinue home losartan given hyperkalemia Assessment & Plan (12/19/2023 3:51 AM CDT): - Home losartan, metoprolol, amlodipine Assessment & Plan (11/21/2023 2:45 PM CDT): Home medication Amlodipine and losartan Syncope and collapse 09/06/2017 025 EJ (obstructive sleep apnea) 03/01/2017 10/20/2024 Assessment & Plan (01/17/2024 7:23 PM CDT): - CPAP qHS Chronic anticoagulation 02/05/201709/22 Osteoarthritis 10/20/2024 Overview (01/10/2024): Osteoarthritis Encounters Date Type Department Care Team Description 11/19/2024 Telephone [facility] Oncology [facility] [address] [place] [address] Devon Carlin MD 11/18/2024 Telephone [facility] Outpatient Health - Palliative Care [address] [place] [address] [place] [address] Edna Beyer RN 11/17/2024 Telephone [facility] Oncology [facility] [address] [place] [address] Devon Carlin MD 11/10/2024 3:07 PM CDT - 11/10/2024 11:59 PM CDT Hospital Encounter [facility] Radiation Oncology [address] [place] [address] [place] [address] Moriah Gentile MD Discharge Disposition: Discharge to home or self care 11/10/2024 Completion of Therapy [facility] Radiation Oncology [address] [facility] [place] [address] Radha Mo PA 11/10/2024 Orders Only RAD ONC TREATMENTS Miscellaneous, Not In File 11/10/2024 OTV [facility] Radiation Oncology [address] [place] [address] Ino Omalley MD 11/07/2024 Documentation [facility] Radiation Oncology [address] [place] [address] Melissa Pitt RN 11/06/2024 6:04 PM CDT - 11/09/2024 5:29 PM CDT Hospital Encounter [facility] [address] [place] [address] Devon Carlin MD Chow, Kelsey Sarah, MD Nausea (Primary Dx) Discharge Disposition: Discharge to home or self care 11/06/2024 3:37 PM CDT - 11/06/2024 11:59 PM CDT Hospital Encounter [facility] [address] [place] [address] Discharge Disposition: Discharge to home or self care 11/06/[address] [place] [id number] Luisa Naranjo, JP 11/05/2024 Orders Only [facility] Oncology [address] [facility] [address] [place] [address] Devon Carlin MD Prostate cancer (HCC) (Primary Dx); Metastasis to bone (HCC); Physical deconditioning; Cancer related pain 11/05/2024 Telephone [facility] Radiation Oncology [address] [facility] [place] [address] Melissa Pitt RN 11/03/2024 Orders Only [facility] Oncology [facility] [address] [place] [address] Devon Carlin MD Prostate cancer (HCC) (Primary Dx); Metastasis to bone (HCC); Cancer related pain 10/30/2024 11:[address] [facility] - Infusion [address] [facility] [address] [place] [address] Persons encountering health services in other specified circumstances (Primary Dx); Metastasis to bone (HCC); Prostate cancer (HCC) 10/30/2024 9:45 AM CDT Office Visit [facility] Oncology [facility] [address] [place] [address] Devon Carlin MD Prostate cancer (HCC) (Primary Dx); Metastasis to bone (HCC); Persons encountering health services in other specified circumstances 10/30/2024 8:[address] [facility] - Lab Collection [address] [facility] [address] [place] [address] Metastasis to bone (HCC); Prostate cancer (HCC); Persons encountering health services in other specified circumstances 10/30/[address] [facility] - Infusion [address] [facility] [address] [place] [address] Indigo Bal RPh 10/27/2024 1:25 PM CDT - 10/27/2024 11:59 PM CDT Hospital Encounter [facility] Radiation Oncology [address] [place] [address] Moriah Gentile MD Discharge Disposition: Discharge to home or self care 10/27/2024 8:05 AM CDT Ancillary Procedure [facility] Vascular Lab IP [address] [facility] [address] [place] [address] 10/27/2024 Documentation [facility] Radiation Oncology [address] [place] [address] Anna Marie Story, JP 10/25/2024 10:06 AM CDT - 10/28/2024 7:01 PM CDT Hospital Encounter [address] [address] Herbie Moses MD Heitsch, MD Raegan Linares Mark Lee, MD Zhang, Jiahua, DO Brito Rivera, Natalia, MD Prostate cancer (HCC) (Primary Dx); Lactate blood increase; Fever, unspecified fever cause; Body aches; Cancer associated pain; Physical deconditioning Discharge Disposition: Discharge to home or self care 10/24/2024 Documentation [facility] Radiation Oncology [address] [place] [address] Stephanie Almendarez RN 10/24/2024 Telephone [facility] Radiation Oncology [address] [place] [address] Stephanie Almendarez RN 10/20/2024 6:55 AM CDT Ancillary Procedure [facility] Vascular Lab IP 1 [facility] [address] [place] [address] 10/19/2024 5:14 PM CDT - 10/24/2024 6:04 PM CDT Hospital Encounter [address] [address] Sterling Mejias MD PhD Devon Carlin MD Kichura, Daniel J., MD Hypervolemia, unspecified hypervolemia type (Primary Dx); Acute congestive heart failure, unspecified heart failure type (HCC); Prostate cancer (HCC) Discharge Disposition: Discharge to home or self care 10/17/2024 Telephone [facility] Oncology [facility] [address] [place] [address] Devendra Jane RN 10/16/2024 11:15 AM CDT Infusion [facility] - Infusion [address] [place] [address] Prostate cancer (HCC) (Primary Dx); Metastasis to bone (HCC) 10/16/2024 10:00 AM CDT Office Visit [facility] Oncology [address] [facility] [address] [place] [address] Devon Carlin MD Prostate cancer (HCC) (Primary Dx); Prostate cancer metastatic to bone (HCC); Metastasis to bone (HCC) 10/16/2024 9:[address] [facility] - Lab Collection [address] [facility] [address] [place] [address] Metastasis to bone (HCC); Prostate cancer (HCC); Prostate cancer metastatic to bone (HCC) 10/16/2024 9:00 AM CDT Lab [facility] Oncology Lab [facility] [address] [place] [address] Metastasis to bone (HCC); Prostate cancer (HCC) 10/16/2024 Telephone Radiology [address] [place] [address] Aniyah Ward, RT 10/16/[address] [facility] - Infusion [address] [facility] [address] [place] [address] Indigo Bal mary lou 10/10/2024 12:23 PM CDT - 10/10/2024 11:59 PM CDT Hospital Encounter [facility] - PET [address] [facility] [address] [place] [address] Discharge Disposition: Discharge to home or self care 10/10/2024 12:23 PM CDT - 10/10/2024 11:59 PM CDT Hospital Encounter [facility] - PET [address] [place], [place] [id number] Metastasis to bone (HCC); Prostate cancer (HCC) Discharge Disposition: Discharge to home or self care 09/30/2024 Orders Only [facility] Oncology [facility] [address] [place] [address] Devon Carlin MD Prostate cancer (HCC) (Primary Dx); Metastasis to bone (HCC) 09/24/2024 1:30 PM DRAFT ROLLER PICKER Office Visit [facility] Neurosurgery [address] [facility] [address], [address] [place] [address] Belkis Hoang PA Metastatic malignant neoplasm, unspecified site (HCC) (Primary Dx); Metastasis to bone (HCC) 09/23/2024 5:50 PM DRAFT ROLLER PICKER - 09/23/2024 11:59 PM DRAFT ROLLER PICKER Hospital Encounter [facility] - MRI [address] [place] [address] Metastasis to bone (HCC) Discharge Disposition: Discharge to home or self care 09/18/2024 8:30 AM DRAFT ROLLER PICKER Office Visit [facility] Oncology [facility] [address] [place] [address] Devon Carlin MD Prostate cancer (HCC) (Primary Dx); Metastasis to bone (HCC) 09/18/2024 7:30 AM DRAFT ROLLER PICKER Lab [facility] - Lab Collection [address] [place] [address] Metastasis to bone (HCC); Prostate cancer (HCC) 09/04/2024 7:30 AM DRAFT ROLLER PICKER Infusion [facility] - Infusion [address] [place] [address] Prostate cancer (HCC) (Primary Dx); Metastasis to bone (HCC) 09/04/2024 6:45 AM DRAFT ROLLER PICKER Lab [facility] - Lab Collection [address] [place] [address] Metastasis to bone (HCC); Prostate cancer (HCC) 08/29/2024 Orders Only [facility] Oncology [address] [place] [address] Devon Carlin MD 08/28/2024 9:30 AM DRAFT ROLLER PICK[employer] Infusion [facility] - Infusion [address] [place] [address] Prostate cancer (HCC) (Primary Dx); Metastasis to bone (HCC) 08/28/2024 8:30 AM DRAFT ROLLER PICKER Office Visit [facility] Oncology [facility] [address] [place] [address] Devon Carlin MD Prostate cancer (HCC) (Primary Dx); Metastasis to bone (HCC) 08/28/2024 7:30 AM DRAFT ROLLER PICKER Lab [facility] - Lab Collection [address] [facility] [address] [place] [address] Metastasis to bone (HCC); Prostate cancer (HCC) from Last 3 Months Immunizations Immunization Administration Dates Next Due Influenza, Quadrivalent, Hig h Dose, Preservative Free, Intrr 06/04/2020 Influenza, Quadrivalent, Spl it, Preservative Free, Intramuscular 07/30/2013 Influenza, Trivalent, High D ose, Split, Preservative Free, Intramuscular 07/03/2019 Surgical History Surgery Date Site/Laterality Comments OTHER SURGICAL HISTORY TIA: US GUIDED BIOPSY ABDOMEN RETROPERITONEAL 10/22/2024 N/A Medical History Medical History Date Comments Osteoarthritis Osteoarthritis Hx Other Medical 2006 TIA Atrial fibrillation (HCC) Prostate cancer (HCC) T2DM (type 2 diabetes mellitus) (HCC) Family History Medical History Relation Name Comments [...] materials from doctor or pharmacy Always 11/27/2023 [facility] Utilities Answer Date Recorded In the past 12 months has th e [employer], gas, oil, or water [employer] threatened to shut off services in your home? No 11/07/2024 Humiliation, Afraid, Rape, and Kick questionnair e [...] or ex-partner? No 11/21/2023 Social Connection and Isolation Panel [NHANES] A nswer Date Recorded In a typical week, how many times do you talk on the phone with family, friends, or neighbors? Twice a week 11/08/19 How often do you get togethe r with friends or relatives? Twice a week 11/07/2024 How often do you attend chur ch or jainism services? 1 to 4 times per year 11/07/2024 Do you belong to any clubs o r organizations such as cheondoism groups, unions, fraternal or athletic groups, or school groups? No 11/07/2024 How often do you attend meet ings of the clubs or organizations you belong to? Never 11/07/2024 Are you , , di vorced, , never , or living with a partner? 11/07/2024 AUDIT-C Answer Date Recorded Q1: How often [...] like food, housing, medical care, and heating? Not very hard 11/07/2024 PHQ-2 Answer Date Recorded PHQ-2 Total Score (If total score is 3 or more points, staff should administer the PHQ-9) 0 11/07/2024 [facility] Occup[facility] ional [facility] - Occupational Stress [...] the money to buy more. Never true 11/08/19 25 Within the past 12 months, t he food you bought just didn't last and you didn't have money to get more. Never true 11/07/2024 PRAPARE - Transportation Answer Date Re corded In the past 12 months, has l ack of transportation kept you from medical appointments or from getting medications? No 10/21 In the past 12 months, has l ack of transportation kept you from meetings, work, or from getting things needed for daily living? No 11/07/2024 Housing Stability Vital Sign Answer Roman e [...] place to sleep or slept in a alf (including now)? No 11/21/2023 Housing Stability Vital Sign Answer Roman e Recorded In the last 12 months, was t here a time when you were not able to pay the mortgage or rent on time? No 11/07/2024 In the past 12 months, how m any times have you moved where you were living? 0 11/07/2024 At any time in the past 12 m [facility], were you homeless or living in a alf (including now)? No 11/07/2024 Personal Safety Answer Date Recorded Have you ever been in or are you currently in a harmful physical or emotional relationship or is someone making you feel afraid or unsafe? Denies 11/06/2024 Sex and Gender Information Value Date Recorded Sex Assigned at Not on file Legal Sex Male 4:28 AM [employer] Gender Identity Not on file Sexual Orientation Not on file Obstetrics History Last Filed Vital Signs Vital Sign Reading Time Taken Comments Blood Pressure 129/56 11/09/2024 7:36 AM CDT Pulse 69 11/09/2024 7:36 AM CDT Temperature 36.6 C (97.9 F) 11/09/2024 7:36 AM CDT Respiratory Rate 18 11/09/2024 7:3 6 AM CDT Oxygen Saturation 99% 11/09/2024 7:36 AM CDT Inhaled Oxygen Concentration - - Weight 70.7 kg (155 lb 13.8 oz) 11/07/2024 8:00 PM CDT Height 170.2 cm (5' 7 ) 11/06/2024 6:05 PM CDT Body Mass Index 24.41 11/06/2024 6:05 PM CDT Plan of Treatment Health Maintenance Due Date Last Done Comments Albumin Creatinine Ratio, Urine 1945 Hepatitis C Screening 1945 Dilated Eye Exam 1945 Foot Exam 1945 DTaP/Tdap/Td Vaccine (1 - Tdap) 1956 Hepatitis B Screening 1963 Pneumococcal vaccine 65+ (1 of 2 - PCV) 1964 Zoster Vaccine (1 of 2) 1964 Well Visit 65+ 2010 Influenza Vaccine (Season Ended) 2025 06/04/2020, 07/03/2019, 07/30/2013 Hemoglobin A1C 04/21/2025 10/20/2024, 09/22, 07/30/2024 Lipid Panel 10/25/2025 10/25/2024, 10/21, 11/05/2019, Additional history exists Depression Screening 11/06/2025 11/06/2024 Fall Risk Assessment 11/09/2025 11/09/2024 eGFR 11/09/2025 11/09/2024, 10/21, 11/07/2024, Additional history exists Abdominal Aortic Aneurysm (A AA) Screen Completed 11/06/2024, 10/25/2024, 07/30/2024, Additional history exists Procedures Procedure Name Priority Date/Time Associated Diagnosis Comments RAD ONC ARIA SESSION SUMMARY 11/10/2024 4:16 PM CDT POCT GLUCOSE DEVICE Routine 11/09/2024 11:25 AM CDT POCT GLUCOSE DEVICE Routine 11/09/2024 7 :35 AM CDT TRANSFUSE RED BLOOD CELLS Timed 11/09/2024 4:45 AM CDT PREPARE RBC Timed 11/09/2024 4:08 AM CDT EGFR Routine 11/09/2024 12:30 AM CDT DIFFERENTIAL AUTO Routine 11/09/2024 12:30 AM CDT PHOSPHORUS Routine 11/09/2024 12:30 AM CDT COMPREHENSIVE METABOLIC PANEL Routine 11/09/2024 12:30 AM CDT CBC WITH AUTO DIFFERENTIAL Routine 11/09/2024 12:30 AM CDT POCT GLUCOSE DEVICE Routine 11/08/2024 9 :34 PM CDT POCT GLUCOSE DEVICE Routine 11/08/2024 8 :38 PM CDT POCT GLUCOSE DEVICE Routine 11/08/2024 5 :36 PM CDT POCT GLUCOSE DEVICE Routine 11/08/2024 12:42 PM CDT POCT GLUCOSE DEVICE Routine 11/08/2024 8 :44 AM CDT EGFR Routine 11/08/2024 1:06 AM CDT DIFFERENTIAL AUTO Routine 11/08/2024 1:0 6 AM CDT PHOSPHORUS Routine 11/08/2024 1:06 AM CDT COMPREHENSIVE METABOLIC PANEL Routine 11/08/2024 1:06 AM CDT CBC WITH AUTO DIFFERENTIAL Routine 11/08/2024 1:06 AM CDT POCT GLUCOSE DEVICE Routine 11/07/2024 8 :19 PM CDT POCT GLUCOSE DEVICE Routine 11/07/2024 4 :10 PM CDT POCT GLUCOSE DEVICE Routine 11/07/2024 11:28 AM CDT CRITICAL RESULT CALLBACK CHEMISTRY Timed 11/07/2024 9:05 AM CDT LACTATE Timed 11/07/2024 9:05 AM CDT POCT GLUCOSE DEVICE Routine 11/07/2024 8 :16 AM CDT EGFR Routine 11/07/2024 5:41 AM CDT CRITICAL RESULT CALLBACK CHEMISTRY Routine 11/07/2024 5:41 AM CDT LACTATE Routine 11/07/2024 5:41 AM CDT PROTIME-INR Routine 11/07/2024 5:41 AM CDT APTT Routine 11/07/2024 5:41 AM CDT LACTATE DEHYDROGENASE Routine 11/07/2024 5:41 AM CDT URIC ACID Routine 11/07/2024 5:41 AM CDT TYPE AND SCREEN Timed 11/07/2024 5:41 AM CDT PHOSPHORUS Routine 11/07/2024 5:41 AM CDT COMPREHENSIVE METABOLIC PANEL Routine 11/07/2024 5:41 AM CDT URINALYSIS, MICROSCOPIC ONLY Routine 11/07/2024 2:53 AM CDT INFECTION PREVENTION VRE CULTURE Routine 11/07/2024 2:53 AM CDT URINALYSIS AND REFLEX TO MICROSCOPIC AND CULTURE Routine 11/07/2024 2:53 AM CDT STOOL CULTURE Routine 11/07/2024 2:53 AM CDT C. DIFFICILE TESTING Routine 11/07/2024 2:53 AM CDT DIFFERENTIAL AUTO Routine 11/07/2024 2:3 0 AM CDT CBC WITH AUTO DIFFERENTIAL Routine 11/07/2024 2:30 AM CDT POCT GLUCOSE DEVICE Routine 11/06/2024 9 :55 PM CDT EGFR STAT 11/06/2024 9:55 PM CDT PHOSPHORUS STAT 11/06/2024 9:55 PM CDT MAGNESIUM STAT 11/06/2024 9:55 PM CDT COMPREHENSIVE METABOLIC PANEL STAT 11/06/2024 9:[address] ABDOMEN PELVIS W CONTRAST IP Routine 11/06/2024 4:07 PM CDT RESPIRATORY PATHOGEN PANEL Routine 11/06/2024 2:25 PM CDT POC BLOOD GAS AND CHEMISTRIES, ARTERIAL Routine 11/06/2024 1:47 PM CDT MANUAL DIFFERENTIAL Routine 11/06/2024 1 :34 PM CDT EGFR Routine 11/06/2024 1:34 PM CDT PHOSPHORUS Routine 11/06/2024 1:34 PM CDT MAGNESIUM Routine 11/06/2024 1:34 PM CDT COMPREHENSIVE METABOLIC PANEL Routine 11/06/2024 1:34 PM CDT CBC WITH AUTO DIFFERENTIAL Routine 11/06/2024 1:34 PM CDT BLOOD CULTURE Routine 11/06/2024 1:34 PM CDT BLOOD CULTURE Routine 11/06/2024 1:34 PM CDT EGFR STAT 10/30/2024 9:10 AM CDT Metastasis to bone (HCC) Prostate cancer (HCC) Persons encountering health services in other specified circumstances MANUAL DIFFERENTIAL Routine 10/30/2024 9 :10 AM CDT Metastasis to bone (HCC) Prostate cancer (HCC) Persons encountering health services in other specified circumstances CBC WITH AUTO DIFFERENTIAL Routine 10/30/2024 9:10 AM CDT Metastasis to bone (HCC) Prostate cancer (HCC) Persons encountering health services in other specified circumstances COMPREHENSIVE METABOLIC PANEL STAT 10/30/2024 9:10 AM CDT Metastasis to bone (HCC) Prostate cancer (HCC) Persons encountering health services in other specified circumstances PSA DIAGNOSTIC Routine 10/30/2024 9:10 AM CDT Metastasis to bone (HCC) Prostate cancer (HCC) Persons encountering health services in other specified circumstances PHOSPHORUS Routine 10/28/2024 6:45 PM CDT POCT GLUCOSE DEVICE Routine 10/28/2024 4 :32 PM CDT POCT GLUCOSE DEVICE Routine 10/28/2024 12:08 PM CDT POCT GLUCOSE DEVICE Routine 10/28/2024 7 :16 AM CDT EGFR Routine 10/28/2024 12:51 AM CDT CRITICAL RESULT CALLBACK CHEMISTRY Routine 10/28/2024 12:51 AM CDT DIFFERENTIAL AUTO Routine 10/28/2024 12:51 AM CDT VITAMIN D 25 HYDROXY Routine 10/28/2024 12:51 AM CDT PTH Routine 10/28/2024 12:51 AM CDT LACTATE Routine 10/28/2024 12:51 AM CDT CALCIUM, IONIZED Routine 10/28/2024 12:51 AM CDT PHOSPHORUS Routine 10/28/2024 12:51 AM CDT COMPREHENSIVE METABOLIC PANEL Routine 10/28/2024 12:51 AM CDT CBC WITH AUTO DIFFERENTIAL Routine 10/28/2024 12:51 AM CDT POCT GLUCOSE DEVICE Routine 10/27/2024 8 :46 PM CDT POCT GLUCOSE DEVICE Routine 10/27/2024 5 :33 PM CDT US VEIN DUPLEX LOWER EXTREMITY BILATERAL COMPLETE IP Routine 10/27/2024 1:22 PM CDT POCT GLUCOSE DEVICE Routine 10/27/2024 11:33 AM CDT POCT GLUCOSE DEVICE Routine 10/27/2024 7 :21 AM CDT EGFR Routine 10/27/2024 1:19 AM CDT CRITICAL RESULT CALLBACK CHEMISTRY Routine 10/27/2024 1:19 AM CDT DIFFERENTIAL AUTO Routine 10/27/2024 1:1 9 AM CDT COPPER, SERUM Routine 10/27/2024 1:19 AM CDT THYROID FUNCTION CASCADE Routine 10/27/2024 1:19 AM CDT FOLATE Routine 10/27/2024 1:19 AM CDT VITAMIN B12 Routine 10/27/2024 1:19 AM CDT LACTATE Routine 10/27/2024 1:19 AM CDT CALCIUM, IONIZED Routine 10/27/2024 1:19 AM CDT PHOSPHORUS Routine 10/27/2024 1:19 AM CDT COMPREHENSIVE METABOLIC PANEL Routine 10/27/2024 1:19 AM CDT CBC WITH AUTO DIFFERENTIAL Routine 10/27/2024 1:19 AM CDT PROTIME-INR Routine 10/27/2024 1:19 AM CDT APTT Routine 10/27/2024 1:19 AM CDT LACTATE DEHYDROGENASE Routine 10/27/2024 1:19 AM CDT URIC ACID Routine 10/27/2024 1:19 AM CDT TYPE AND SCREEN Timed 10/27/2024 1:19 AM CDT POCT GLUCOSE DEVICE Routine 10/26/2024 8 :01 PM CDT POCT GLUCOSE DEVICE Routine 10/26/2024 5 :45 PM CDT INFECTION PREVENTION MRSA ONLY (STAPHYLOCOCCUS AUREUS) CULTURE Routine 10/26/2024 4:05 PM CDT POCT GLUCOSE DEVICE Routine 10/26/2024 4 :03 PM CDT POCT GLUCOSE DEVICE Routine 10/26/2024 11:09 AM CDT VITAMIN B1 Timed 10/26/2024 9:36 AM CDT SALICYLATE LEVEL Timed 10/26/2024 9:36 AM CDT ETHANOL Timed 10/26/2024 9:36 AM CDT CARBOXYHEMOGLOBIN, VENOUS Timed 10/26/2024 9:36 AM CDT BLOOD GAS, VENOUS Timed 10/26/2024 9:3 6 AM CDT BETA-HYDROXYBUTYRATE Timed 10/26/2024 9:36 AM CDT CALCIUM, IONIZED STAT 10/26/2024 9:36 AM CDT POCT GLUCOSE DEVICE Routine 10/26/2024 8 :07 AM CDT APTT STAT 10/26/2024 3:19 AM CDT PROTIME-INR STAT 10/26/2024 3:19 AM CDT DIFFERENTIAL AUTO Routine 10/26/2024 2:3 0 AM CDT CBC WITH AUTO DIFFERENTIAL Routine 10/26/2024 2:30 AM CDT EGFR Routine 10/26/2024 1:53 AM CDT CRITICAL RESULT CALLBACK CHEMISTRY Routine 10/26/2024 1:53 AM CDT LACTATE Routine 10/26/2024 1:53 AM CDT LACTATE DEHYDROGENASE Routine 10/26/2024 1:53 AM CDT URIC ACID Routine 10/26/2024 1:53 AM CDT PHOSPHORUS Routine 10/26/2024 1:53 AM CDT COMPREHENSIVE METABOLIC PANEL Routine 10/26/2024 1:53 AM CDT CRP (ACUTE PHASE) STAT 10/25/2024 9:4 0 PM CDT LIPID PANEL STAT 10/25/2024 9:40 PM CDT EGFR STAT 10/25/2024 9:40 PM CDT CRITICAL RESULT CALLBACK CHEMISTRY STAT 10/25/2024 9:40 PM CDT DIFFERENTIAL AUTO STAT 10/25/2024 9:4 0 PM CDT LACTATE STAT 10/25/2024 9:40 PM CDT TYPE AND SCREEN STAT 10/25/2024 9:40 PM CDT PHOSPHORUS STAT 10/25/2024 9:40 PM CDT MAGNESIUM STAT 10/25/2024 9:40 PM CDT COMPREHENSIVE METABOLIC PANEL STAT 10/25/2024 9:40 PM CDT CBC WITH AUTO DIFFERENTIAL STAT 10/25/2024 9:[address] ABDOMEN PELVIS WO CONTRAST ED Urgent/IP Urgent 10/25/2024 9:20 PM CDT POCT GLUCOSE DEVICE Routine 10/25/2024 7 :41 PM CDT POCT GLUCOSE DEVICE Routine 10/25/2024 4 :47 PM CDT CRITICAL RESULT CALLBACK CHEMISTRY Routine 10/25/2024 4:12 PM CDT LACTATE, WHOLE BLOOD Routine 10/25/2024 4:12 PM CDT CRITICAL RESULT CALLBACK CHEMISTRY Routine 10/25/2024 2:28 PM CDT CRITICAL RESULT CALLBACK CHEMISTRY Timed 10/25/2024 2:28 PM CDT LACTATE, WHOLE BLOOD Routine 10/25/2024 2:28 PM CDT SEPSIS LACTATE WITH REFLEX Timed 10/25/2024 2:28 PM CDT XR CHEST 1 VIEW ED 10/25/2024 11:41 AM CDT ECG 12-LEAD STAT 10/25/2024 11:38 AM CDT URINALYSIS, MICROSCOPIC ONLY STAT 10/25/2024 11:33 AM CDT URINALYSIS AND REFLEX TO MICROSCOPIC AND CULTURE STAT 10/25/2024 11:33 AM CDT BLOOD CULTURE STAT 10/25/2024 11:27 AM CDT RESPIRATORY PATHOGEN PANEL STAT 10/25/2024 11:27 AM CDT CRITICAL RESULT CALLBACK CHEMISTRY Timed 10/25/2024 11:19 AM CDT SEPSIS LACTATE WITH REFLEX Timed 10/25/2024 11:19 AM CDT BLOOD CULTURE STAT 10/25/2024 11:19 AM CDT EGFR STAT 10/25/2024 10:53 AM CDT DIFFERENTIAL AUTO STAT 10/25/2024 10:53 AM CDT CRITICAL RESULT CALLBACK CHEMISTRY STAT 10/25/2024 10:53 AM CDT SEPSIS LACTATE WITH REFLEX STAT 10/25/2024 10:53 AM CDT COMPREHENSIVE METABOLIC PANEL STAT 10/25/2024 10:53 AM CDT CBC WITH AUTO DIFFERENTIAL STAT 10/25/2024 10:53 AM CDT POCT GLUCOSE DEVICE Routine 10/25/2024 9 :37 AM CDT EGFR Routine 10/24/2024 12:27 AM CDT DIFFERENTIAL AUTO Routine 10/24/2024 12:27 AM CDT PHOSPHORUS Routine 10/24/2024 12:27 AM CDT COMPREHENSIVE METABOLIC PANEL Routine 10/24/2024 12:27 AM CDT CBC WITH AUTO DIFFERENTIAL Routine 10/24/2024 12:27 AM CDT XR HIPS BILATERAL W PELVIS 5 OR MORE VIEWS ED Urgent/IP Urgent 10/23/2024 10:35 PM CDT XR FEMUR RIGHT 2 OR MORE VIEWS ED Urgent/IP Urgent 10/23/2024 10:35 PM CDT XR FEMUR LEFT 2 OR MORE VIEWS ED Urgent/IP Urgent 10/23/2024 10:35 PM CDT XR HUMERUS LEFT 2 OR MORE VIEWS ED Urgent/IP Urgent 10/23/2024 10:35 PM CDT XR HUMERUS RIGHT 2 OR MORE VIEWS ED Urgent/IP Urgent 10/23/2024 10:35 PM CDT XR SCOLIOSIS AP LAT ED Urgent/IP Urgent 10/23/2024 10:35 PM CDT MRI LUMBAR SPINE W WO CONTRAST ED Urgent/IP Urgent 10/23/2024 6:28 PM CDT PET/CT FDG SKULL TO THIGH IP Routine 10/23/2024 12:52 PM CDT EGFR Routine 10/23/2024 12:31 AM CDT DIFFERENTIAL AUTO Routine 10/23/2024 12:31 AM CDT PHOSPHORUS Routine 10/23/2024 12:31 AM CDT COMPREHENSIVE METABOLIC PANEL Routine 10/23/2024 12:31 AM CDT CBC WITH AUTO DIFFERENTIAL Routine 10/23/2024 12:31 AM CDT LACTATE DEHYDROGENASE Routine 10/23/2024 12:31 AM CDT URIC ACID Routine 10/23/2024 12:31 AM CDT TYPE AND SCREEN Timed 10/23/2024 12:31 AM CDT FLOW LEUKEMIA/LYMPHOMA Routine 10/22/2024 10:53 AM CDT SURGICAL PATHOLOGY Routine 10/22/2024 10:51 AM CDT Hypervolemia, unspecified hypervolemia type Acute congestive heart failure, unspecified heart failure type (HCC) Prostate cancer (HCC) US GUIDED BIOPSY ABDOMEN RETROPERITONEAL IP Routine 10/22/2024 10:40 AM CDT EGFR Routine 10/22/2024 12:57 AM CDT DIFFERENTIAL AUTO Routine 10/22/2024 12:57 AM CDT PROTIME-INR Routine 10/22/2024 12:57 AM CDT PHOSPHORUS Routine 10/22/2024 12:57 AM CDT COMPREHENSIVE METABOLIC PANEL Routine 10/22/2024 12:57 AM CDT MAGNESIUM Routine 10/22/2024 12:57 AM CDT CBC WITH AUTO DIFFERENTIAL Routine 10/22/2024 12:57 AM CDT TRANSFUSE RED BLOOD CELLS Timed 10/21/2024 5:55 PM CDT TYPE AND SCREEN Timed 10/21/2024 12:52 PM CDT PREPARE RBC Timed 10/21/2024 11:32 AM CDT TRANSTHORACIC ECHO (TTE) COMPLETE W DOPPLER/CF W CONTRAST STAT 10/21/2024 8:53 AM CDT EGFR Routine 10/21/2024 5:43 AM CDT DIFFERENTIAL AUTO Routine 10/21/2024 5:4 3 AM CDT PHOSPHORUS Routine 10/21/2024 5:43 AM CDT COMPREHENSIVE METABOLIC PANEL Routine 10/21/2024 5:43 AM CDT MAGNESIUM Routine 10/21/2024 5:43 AM CDT CBC WITH AUTO DIFFERENTIAL Routine 10/21/2024 5:43 AM CDT POCT GLUCOSE DEVICE Routine 10/20/2024 6 :35 PM CDT POCT GLUCOSE DEVICE Routine 10/20/2024 2 :41 PM CDT POCT GLUCOSE DEVICE Routine 10/20/2024 10:39 AM CDT US VEIN DUPLEX LOWER EXTREMITY BILATERAL COMPLETE ED 10/20/2024 8:43 AM CDT POCT GLUCOSE DEVICE Routine 10/20/2024 6 :[address] LUMBAR SPINE W CONTRAST ED Urgent/IP Urgent 10/20/2024 4:[address] PELVIS WO CONTRAST ED Urgent/IP Urgent 10/20/2024 4:25 AM CDT POCT GLUCOSE DEVICE Routine 10/20/2024 2 :23 AM CDT TROPONIN I HIGH-SENSITIVITY 4-HOUR Timed 10/19/2024 9:22 PM CDT URINALYSIS AND REFLEX TO MICROSCOPIC STAT 10/19/2024 8:24 PM CDT POCT GLUCOSE DEVICE Routine 10/19/2024 7 :32 PM CDT TROPONIN I HIGH-SENSITIVITY 2-HOUR Timed 10/19/2024 6:53 PM CDT XR CHEST 1 VIEW ED 10/19/2024 6:51 PM CDT HEMOGLOBIN A1C STAT 10/19/2024 4:55 PM CDT PRO B-TYPE NATRIURETIC PEPTIDE STAT 10/19/2024 4:55 PM CDT EGFR STAT 10/19/2024 4:55 PM CDT DIFFERENTIAL AUTO STAT 10/19/2024 4:5 5 PM CDT TROPONIN I HIGH-SENSITIVITY SERIES (BASELINE, 2HR, 4HR, 6HR) STAT 10/19/2024 4:55 PM CDT LIPASE STAT 10/19/2024 4:55 PM CDT COMPREHENSIVE METABOLIC PANEL STAT 10/19/2024 4:55 PM CDT CBC WITH AUTO DIFFERENTIAL STAT 10/19/2024 4:55 PM CDT POCT GLUCOSE DEVICE Routine 10/19/2024 4 :53 PM CDT ECG 12-LEAD STAT 10/19/2024 3:13 PM CDT EGFR Routine 10/16/2024 9:09 AM CDT Metastasis to bone (HCC) Prostate cancer (HCC) MANUAL DIFFERENTIAL Routine 10/16/2024 9 :09 AM CDT Metastasis to bone (HCC) Prostate cancer (HCC) PROTIME-INR Routine 10/16/2024 9:09 AM CDT Prostate cancer (HCC) Prostate cancer metastatic to bone (HCC) PHOSPHORUS Routine 10/16/2024 9:09 AM CDT Metastasis to bone (HCC) Prostate cancer (HCC) VITAMIN D 25 HYDROXY Routine 10/16/2024 9:09 AM CDT Metastasis to bone (HCC) Prostate cancer (HCC) CBC WITH AUTO DIFFERENTIAL Routine 10/16/2024 9:09 AM CDT Metastasis to bone (HCC) Prostate cancer (HCC) COMPREHENSIVE METABOLIC PANEL Routine 10/16/2024 9:09 AM CDT Metastasis to bone (HCC) Prostate cancer (HCC) PSA DIAGNOSTIC Routine 10/16/2024 9:09 AM CDT Metastasis to bone (HCC) Prostate cancer (HCC) PET/CT PROSTATE CANCER PSMA SKULL TO THIGH Schedule Routine, Read Routine (OP Routine) 10/10/2024 3:02 PM CDT Metastasis to bone (HCC) Prostate cancer (HCC) MRI BRAIN W WO CONTRAST Schedule Routine, Read Routine (OP Routine) 09/23/2024 6:45 PM [employer] Metastasis to bone (HCC) EGFR Routine 09/18/2024 8:52 AM [employer] Metastasis to bone (HCC) Prostate cancer (HCC) DIFFERENTIAL AUTO Routine 09/18/2024 8:5 2 AM [employer] Metastasis to bone (HCC) Prostate cancer (HCC) PSA DIAGNOSTIC Routine 09/18/2024 8:52 AM [employer] Metastasis to bone (HCC) Prostate cancer (HCC) TOTAL TESTOSTERONE Routine 09/18/2024 8: 52 AM [employer] Metastasis to bone (HCC) Prostate cancer (HCC) CBC WITH AUTO DIFFERENTIAL Routine 09/18/2024 8:52 AM [employer] Metastasis to bone (HCC) Prostate cancer (HCC) COMPREHENSIVE METABOLIC PANEL Routine 09/18/2024 8:52 AM [employer]ER Metastasis to bone (HCC) Prostate cancer (HCC) EGFR Routine 09/04/2024 7:07 AM [employer] Metastasis to bone (HCC) Prostate cancer (HCC) COMPREHENSIVE METABOLIC PANEL Routine 09/04/2024 7:07 AM [employer]ER Metastasis to bone (HCC) Prostate cancer (HCC) MANUAL DIFFERENTIAL Routine 09/04/2024 7 :02 AM [employer]ER Metastasis to bone (HCC) Prostate cancer (HCC) CBC WITH AUTO DIFFERENTIAL Routine 09/04/2024 7:02 AM D[employer]ER Metastasis to bone (HCC) Prostate cancer (HCC) EGFR Routine 08/28/2024 7:48 AM D[employer] P[employer]ER Metastasis to bone (HCC) Prostate cancer (HCC) DIFFERENTIAL AUTO Routine 08/28/2024 7:4 8 AM D[employer] RO[employer] PICKER Metastasis to bone (HCC) Prostate cancer (HCC) PSA DIAGNOSTIC Routine 08/28/2024 7:48 AM D[employer]ER Metastasis to bone (HCC) Prostate cancer (HCC) TOTAL TESTOSTERONE Routine 08/28/2024 7: 48 AM [employer]ICKER Metastasis to bone (HCC) Prostate cancer (HCC) CBC WITH AUTO DIFFERENTIAL Routine 08/28/2024 7:48 AM D[employer] RO[employer] PICKER Metastasis to bone (HCC) Prostate cancer (HCC) COMPREHENSIVE METABOLIC PANEL Routine 08/28/2024 7:48 AM D[employer] RO[employer] P[employer]ER Metastasis to bone (HCC) Prostate cancer (HCC) from Last 3 Months Results * RAD ONC ARIA SESSION SUMMARY (11/10/2024 4:16 PM CDT) Course Name C1 [id number] ARIA Course Plan Date 10/28/2024 8:56 AM ARIA Elapsed Days 0 ARIA Treatment Start Date 11/10/2024 ARIA Treatment Site LSPINE_DPV ARIA Dose Given To Date (cGy) 800 ARIA Session Dosage Given (cGy) 800 ARIA Plan ID LSPINE_SAC RUM ARIA Fractions Treated 1 ARIA Prescribed Dose Per Fraction (cGy) 800 ARIA Prescribed Total Dose (cGy) 800 ARIA 11/10/2024 4:16 PM CDT us Not In File Miscellaneous RADIATION ONCOLOGY ORD ERABLES Final Result Performing Organization Address City/[facility]/ZIP Co de Phone Number ARIA * POCT glucose (11/09/2024 11:25 AM CDT) Glucose, POC 144 70 - 199 mg/dL Blood 11/09/2024 11:2 5 AM CDT 11/09/2024 11:25 AM CDT us Ivania Hammer MD LAB POCT ORDERABLES - DEVIC E Final Result Performing Organization Address City/[facility]/ZIP Co de Phone Number [facility] [place] [address] * POCT glucose (11/09/2024 7:35 AM CDT) Glucose, POC 102 70 - 199 mg/dL Blood 11/09/2024 7:35 AM CDT 11/09/2024 7:35 AM CDT us Ivania Hammer MD LAB POCT ORDERABLES - DEVIC E Final Result Performing Organization Address [facility] Co de Phone Number [facility] [place] [address] * Transfuse RBC (11/09/2024 6:49 AM CDT) Blood Kianna Kiser MD BLOOD TRANSFUSION ORDERABLES F inal Result Performing Organization Address City/[facility] Co de Phone Number [facility] Department [place] [address] * Prepare RBC: 1 Units (11/09/2024 4:08 AM CDT) Product code [id number] Unit Number [id number] J [facility] Product Blood Type OPOS [facility] Dispense Status PRESUMED TRANSFUSED [facility] Blood 11/09/2024 4:08 AM CDT 11/09/2024 4:08 AM CDT Narrative [facility] - 11/09/2024 8:00 PM CDT Are special requirements needed? (All products are leukoreduced and CMV- safe)- >No Date required:-[id number] LRRBC # of Ltamy-6-Lmoal Reasons:-Hgb <7 g/dL} Kianna Kiser MD BLOOD BANK PRODUCT ORDERABLES Final Result Performing Organization Address [facility] Co de Phone Number [facility] [place] [address] * eGFR (11/09/2024 12:30 AM CDT) eGFR 68 >=60 mL/min/1. 73 m2 Comment: Interpretive Data [...] interpretive data was last reviewed 2021. Blood 11/09/2024 12:3 0 AM CDT 11/09/2024 12:48 AM CDT Kristi Montanez MD LAB BLOOD ORDERABLES Final Resu lt [facility] [place] [address] * (ABNORMAL) Differential, auto (11/09/2024 12:30 AM CDT) Neutrophil abs 14.40(H) 1.50 - 6.50 K/cumm Imm gran abs 2.68(H) 0.00 - 0.10 K/cumm [facility] Lymphocyte abs 1.57 0.80 - 3.30 K[facility] Monocyte abs 1.43(H) 0.20 - 0.80 K/cumm [facility] Eosinophil abs 0.01 0.00 - 0.50 K/cumm [facility] Basophil abs 0.03 0.00 - 0.10 K/cumm [facility] Neutrophil pct 71.7 % [facility] Comment: Interpretive Data Percent cell count reference ranges are not reported, since discordance with absolute values may lead to misinterpretation of CBC data. Current Interpretive Data was last revised on 2017. Imm gran pct 13.3 % [facility] Comment: Interpretive Data Percent cell count reference ranges are not reported, since discordance with absolute values may lead to misinterpretation of CBC data. Current Interpretive Data was last revised on 2017. Lymphocyte pct 7.8 % [facility] Comment: Interpretive Data Percent cell count reference ranges are not reported, since discordance with absolute values may lead to misinterpretation of CBC data. Current Interpretive Data was last revised on 2017. Monocyte pct 7.1 % [facility] Comment: Interpretive Data Percent cell count reference ranges are not reported, since discordance with absolute values may lead to misinterpretation of CBC data. Current Interpretive Data was last revised on 2017. Eosinophil pct 0.0 % [facility] Comment: Interpretive Data Percent cell count reference ranges are not reported, since discordance with absolute values may lead to misinterpretation of CBC data. Current Interpretive Data was last revised on 2017. Basophil pct 0.1 % [facility] Comment: Interpretive Data Percent cell count reference ranges are not reported, since discordance with absolute values may lead to misinterpretation of CBC data. Current Interpretive Data was last revised on 2017. Blood 11/09/2024 12:3 0 AM CDT 11/09/2024 12:48 AM CDT Kristi Montanez MD LAB BLOOD ORDERABLES Final Resu lt [facility] [place] [address] * (ABNORMAL) CBC with auto differential (11/09/2024 12:30 AM CDT) WBC 20.12(H) 3.80 - 9.90 K/cumm Hgb 6.9(L) 13.0 - 17.5 g/dL [facility] Hct 21.8(L) 38.9 - 50.3 % [facility] Plt 269 150 - 400 K/cumm [facility] MPV 10.0 9.1 - 12.3 fL [facility] RBC 2.70(L) 4.30 - 5.80 M/cumm [facility] MCV 80.7(L) 81.3 - 96.4 fL [facility] MCH 25.6(L) 27.1 - 33.3 pg [facility] MCHC 31.7(L) 32.3 - 35.7 g/dL [facility] RDW CV 22.1(H) 11.1 - 14.9 % [facility] RDW SD 61.1(H) 35.7 - 48.1 fL [facility] NRBC abs 0.76(H) 0.00 - 0.01 K/cumm [facility] Morphologic Screen Results confirmed by manual morphology review. [facility] Blood 11/09/2024 12:3 0 AM CDT 11/09/2024 12:48 AM CDT Kristi Montanez MD LAB BLOOD ORDERABLES Edited Res ult - Final Performing Organization Address City/[facility]/ZIP Co de Phone Number [facility] [place] [address] * (ABNORMAL) Phosphorus (11/09/2024 12:30 AM CDT) Pathologist [facility] Phosphorus, pl 1.7(L) 2.3 - 4.5 mg/dL Blood 11/09/2024 12:3 0 AM CDT 11/09/2024 12:48 AM CDT Kristi Montanez MD LAB BLOOD ORDERABLES Final Resu lt Performing Organization Address [facility] Co de Phone Number [facility] [place] [address] * (ABNORMAL) Comprehensive metabolic panel (11/09/2024 12:30 AM CDT) Sodium 138 135 - 145 mmol/L Potassium, pl 4.8 3.3 - 4.9 mmol/L [facility] Chloride 108 97 - 110 mmol/L [facility] CO2 19(L) 22 - 32 mmol/L [facility] Anion gap 11 2 - 15 mmol/L [facility] BUN 23 6 - 25 mg/dL [facility] Creatinine 1.11 0.80 - 1.30 mg/dL [facility] Glucose 147 70 - 199 mg/dL [facility] Comment: Interpretive Data Fasting glucose >/= 126 [...] interpretive data was last revised 2022. Calcium 7.0(L) 8.5 - 10.3 mg/dL [facility] Bilirubin, total 0.2 0.1 - 1.2 mg/dL [facility] Protein, pl 5.9(L) 6.5 - 8.5 g/dL [facility] Albumin 2.8(L) 3.5 - 5.0 g/dL [facility] Alk phos 431(H) 40 - 130 Units/L [facility] ALT 21 7 - 55 Units/L [facility] AST 34 10 - 50 Units/L [facility] Blood 11/09/2024 12:3 0 AM CDT 11/09/2024 12:48 AM CDT us Kristi Montanez MD LAB BLOOD ORDERABLES Final Resu lt [facility] [place] [address] * POCT glucose (11/08/2024 9:34 PM CDT) Glucose, POC 129 70 - 199 mg/dL Blood 11/08/2024 9:34 PM CDT 11/08/2024 9:34 PM CDT us Ivania Hammer MD LAB POCT ORDERABLES - DEVIC E Final Result [facility] [place] [address] * POCT glucose (11/08/2024 8:38 PM CDT) Glucose, POC 135 70 - 199 mg/dL Blood 11/08/2024 8:38 PM CDT 11/08/2024 8:38 PM CDT us Ivania Hammer MD LAB POCT ORDERABLES - DEVIC E Final Result Performing Organization Address [facility] de Phone Number [facility] [place] [address] * POCT glucose (11/08/2024 5:36 PM CDT) Glucose, POC 126 70 - 199 mg/dL Blood 11/08/2024 5:36 PM CDT 11/08/2024 5:36 PM CDT us Ivania Hammer MD LAB POCT ORDERABLES - DEVIC E Final Result Performing Organization Address [facility] Phone Number [facility] [place] [address] * POCT glucose (11/08/2024 12:42 PM CDT) Glucose, POC 140 70 - 199 mg/dL Blood 11/08/2024 12:4 2 PM CDT 11/08/2024 12:42 PM CDT us Ivania Hammer MD LAB POCT ORDERABLES - DEVIC E Final Result Performing Organization Address [facility] de Phone Number [facility] [place] [address] * POCT glucose (11/08/2024 8:44 AM CDT) Glucose, POC 132 70 - 199 mg/dL Blood 11/08/2024 8:44 AM CDT 11/08/2024 8:44 AM CDT us Ivania Hammer MD LAB POCT ORDERABLES - DEVIC E Final Result Performing Organization Address [facility]/ZIP Co de Phone Number [facility] [place] [address] * eGFR (11/08/2024 1:06 AM CDT) eGFR 73 >=60 mL/min/1. 73 m2 Comment: Interpretive Data [...] interpretive data was last reviewed 2021. Blood 11/08/2024 1:06 AM CDT 11/08/2024 1:36 AM CDT Kristi Montanez MD LAB BLOOD ORDERABLES Final Resu lt Performing Organization Address [facility] Co de Phone Number [facility] [place] [address] * (ABNORMAL) Differential, auto (11/08/2024 1:06 AM CDT) Neutrophil abs 14.90(H) 1.50 - 6.50 K/cumm Imm gran abs 1.93(H) 0.00 - 0.10 K/cumm [facility] Lymphocyte abs 1.78 0.80 - 3.30 K/cumm [facility] Monocyte abs 1.99(H) 0.20 - 0.80 K/cumm [facility] Eosinophil abs 0.00 0.00 - 0.50 K/cumm [facility] Basophil abs 0.09 0.00 - 0.10 K/cumm [facility] Neutrophil pct 72.1 % [facility] Comment: Interpretive Data Percent cell count reference ranges are not reported, since discordance with absolute values may lead to misinterpretation of CBC data. Current Interpretive Data was last revised on 2017. Imm gran pct 9.3 % [facility] Comment: Interpretive Data Percent cell count reference ranges are not reported, since discordance with absolute values may lead to misinterpretation of CBC data. Current Interpretive Data was last revised on 2017. Lymphocyte pct 8.6 % [facility] Comment: Interpretive Data Percent cell count reference ranges are not reported, since discordance with absolute values may lead to misinterpretation of CBC data. Current Interpretive Data was last revised on 2017. Monocyte pct 9.6 % [facility] Comment: Interpretive Data Percent cell count reference ranges are not reported, since discordance with absolute values may lead to misinterpretation of CBC data. Current Interpretive Data was last revised on 2017. Eosinophil pct 0.0 % [facility] Comment: Interpretive Data Percent cell count reference ranges are not reported, since discordance with absolute values may lead to misinterpretation of CBC data. Current Interpretive Data was last revised on 2017. Basophil pct 0.4 % [facility] Comment: Interpretive Data Percent cell count reference ranges are not reported, since discordance with absolute values may lead to misinterpretation of CBC data. Current Interpretive Data was last revised on 2017. Blood 11/08/2024 1:06 AM CDT 11/08/2024 1:36 AM CDT us Kristi Montanez MD LAB BLOOD ORDERABLES Final Resu lt [facility] [place] [address] * (ABNORMAL) CBC with auto differential (11/08/2024 1:06 AM CDT) WBC 20.69(H) 3.80 - 9.90 K/cumm Hgb 7.5(L) 13.0 - 17.5 g/dL [facility] Hct 23.9(L) 38.9 - 50.3 % [facility] Plt 326 150 - 400 K/cumm [facility] MPV 10.1 9.1 - 12.3 fL [facility] RBC 3.00(L) 4.30 - 5.80 M/cumm [facility] MCV 79.7(L) 81.3 - 96.4 fL [facility] MCH 25.0(L) 27.1 - 33.3 pg [facility] MCHC 31.4(L) 32.3 - 35.7 g/dL [facility] RDW CV 21.4(H) 11.1 - 14.9 % [facility] RDW SD 60.7(H) 35.7 - 48.1 fL [facility] NRBC abs 0.58(H) 0.00 - 0.01 K/cumm [facility] Blood 11/08/2024 1:06 AM CDT 11/08/2024 1:36 AM CDT us Kristi Montanez MD LAB BLOOD ORDERABLES Final Resu lt [facility] [place] [address] * (ABNORMAL) Phosphorus (11/08/2024 1:06 AM CDT) [facility] Phosphorus, pl 2.2(L) 2.3 - 4.5 mg/dL Blood 11/08/2024 1:06 AM CDT 11/08/2024 1:36 AM CDT Kristi Montanez MD LAB BLOOD ORDERABLES Final Resu lt [facility] [place] [address] * (ABNORMAL) Comprehensive metabolic panel (11/08/2024 1:06 AM CDT) Sodium 136 135 - 145 mmol/L Potassium, pl 4.9 3.3 - 4.9 mmol/L [facility] Chloride 106 97 - 110 mmol/L [facility] CO2 21(L) 22 - 32 mmol/L [facility] Anion gap 9 2 - 15 mmol/L [facility] BUN 25 6 - 25 mg/dL [facility] Creatinine 1.04 0.80 - 1.30 mg/dL [facility] Glucose 120 70 - 199 mg/dL [facility] Comment: Interpretive Data Fasting glucose >/= 126 [...] interpretive data was last revised 2022. Calcium 7.4(L) 8.5 - 10.3 mg/dL [facility] Bilirubin, total 0.2 0.1 - 1.2 mg/dL [facility] Protein, pl 6.1(L) 6.5 - 8.5 g/dL [facility] Albumin 3.0(L) 3.5 - 5.0 g/dL [facility] Alk phos 417(H) 40 - 130 Units/L [facility] ALT 18 7 - 55 Units/L [facility] AST 28 10 - 50 Units/L [facility] Blood 11/08/2024 1:06 AM CDT 11/08/2024 1:36 AM CDT us Kristi Montanez MD LAB BLOOD ORDERABLES Final Resu lt [facility] [place] [address] * POCT glucose (11/07/2024 8:19 PM CDT) Glucose, POC 163 70 - 199 mg/dL Blood 11/07/2024 8:19 PM CDT 11/07/2024 8:19 PM CDT Ivania Hammer MD LAB POCT ORDERABLES - DEVIC E Final Result Performing Organization Address City/[facility] Co de Phone Number [facility] [place] [address] * POCT glucose (11/07/2024 4:10 PM CDT) Glucose, POC 138 70 - 199 mg/dL Blood 11/07/2024 4:10 PM CDT 11/07/2024 4:10 PM CDT Ivania Hammer MD LAB POCT ORDERABLES - DEVIC E Final Result Performing Organization Address [facility] de Phone Number [facility] [place] [address] * POCT glucose (11/07/2024 11:28 AM CDT) Glucose, POC 143 70 - 199 mg/dL Blood 11/07/2024 11:2 8 AM CDT 11/07/2024 11:28 AM CDT Ivania Hammer MD LAB POCT ORDERABLES - DEVIC E Final Result Performing Organization Address City/[facility] de Phone Number [facility] [place] [address] * (ABNORMAL) Lactate (11/07/2024 9:05 AM CDT) Lactate 4.5(C) 0.7 - 2.0 mmol/L Blood 11/07/2024 9:05 AM CDT 11/07/2024 10:56 AM CDT us Kristi Montanez MD LAB BLOOD ORDERABLES Final Resu lt Performing Organization Address City/[facility] Co de Phone Number [facility] [place] [address] * Critical Result Callback Chemistry (11/07/2024 9:05 AM CDT) Date Notified [id number] Time Notified 1223 [facility] TestName Lactate NERY [facility] Called/Read Back Tammie GABRIEL [facility] Credentials RN NERY [facility] Called By Moustapha GABRIEL [facility] Blood 11/07/2024 9:05 AM CDT 11/07/2024 10:56 AM CDT us Kristi Montanez MD LAB BLOOD ORDERABLES Final Resu lt Performing Organization Address [facility] Co de Phone Number [facility] [place] [address] * POCT glucose (11/07/2024 8:16 AM CDT) Glucose, POC 137 70 - 199 mg/dL Blood 11/07/2024 8:16 AM CDT 11/07/2024 8:16 AM CDT us Ivania Hammer MD LAB POCT ORDERABLES - DEVIC E Final Result Performing Organization Address [facility] [place] [address] * (ABNORMAL) Lactate (11/07/2024 5:41 AM CDT) Lactate 4.9(C) 0.7 - 2.0 mmol/L Blood 11/07/2024 5:41 AM CDT 11/07/2024 6:00 AM CDT us Kristi Montanez MD LAB BLOOD ORDERABLES Final Resu lt NERY HUSAIN [facility] [place] [address] * eGFR (11/07/2024 5:41 AM CDT) eGFR 68 >=60 mL/min/1. 73 m2 Comment: Interpretive Data [...] interpretive data was last reviewed 2021. Blood 11/07/2024 5:41 AM CDT 11/07/2024 6:00 AM CDT us Kristi Montanez MD LAB BLOOD ORDERABLES Final Resu lt Performing Organization Address City/[facility]/ZIP Co de Phone Number NERY RODRIGUE [facility] [place] [address] * Critical Result Callback Chemistry (11/07/2024 5:41 AM CDT) Date Notified [id number] Time Notified 627 NERY HUSAIN TestName Moustapha ARAGON Called/Read Back Desiree HUSAIN Credentials JP HUSAIN Called By ra NERY ARAGON Blood 11/07/2024 5:41 AM CDT 11/07/2024 6:00 AM CDT Kristi Montanez MD LAB BLOOD ORDERABLES Final Resu lt Performing Organization Address [facility] Co de Phone Number [facility] [place] [address] * (ABNORMAL) aPTT (11/07/2024 5:41 AM CDT) aPTT 26(L) 28 - 38 sec Comment: Interpretive Data Heparin therapeutic range: 66.0 - 100.0 seconds. Range based on correlation with therapeutic heparin activity range of 0.3 - 0.7 Units/mL. Current interpretive data was last revised on 2023. Blood 11/07/2024 5:41 AM CDT 11/07/2024 6:09 AM CDT Kristi Montanez MD LAB BLOOD ORDERABLES Final Resu lt Performing Organization Address City/[facility] Co de Phone Number [facility] [place] [address] * Protime-INR (11/07/2024 5:41 AM CDT) PT 13.0 9.7 - 13.0 sec INR 1.20 0.90 - 1.20 [facility] Comment: Interpretive data Oral anticoagulant therapeutic ranges: Venous thromboembolism prophylaxis or treatment: 2.0-3.0 CARDIOLOGY Standard range: 2.0-3.0 High-intensity range: 2.5-3.5 Refer to indication-specific guidelines for appropriate target ranges for prosthetic heart valve replacement. Current interpretive data was last revised on 2019. Blood 11/07/2024 5:41 AM CDT 11/07/2024 6:09 AM CDT Kristi Montanez MD LAB BLOOD ORDERABLES Final Resu lt Performing Organization Address [facility] [place] [address] * Type and screen (11/07/2024 5:41 AM CDT) ABO Rh O Positive Wilfred, indirect Negative [facility] Blood 11/07/2024 5:41 AM CDT 11/07/2024 6:00 AM CDT Narrative [facility] - 11/07/2024 6:43 AM CDT Has the patient had Daratumumab or Isatuximab in the past 6 months?->Unknown Kristi Montanez MD LAB BLOOD BANK TEST ORDERABLES Final Result Performing Organization Address [facility] [place] [address] * Uric acid (11/07/2024 5:41 AM CDT) Uric acid 6.3 3.0 - 8.0 mg/dL Blood 11/07/2024 5:41 AM CDT 11/07/2024 6:00 AM CDT Narrative [facility] - 11/07/2024 6:33 AM CDT Sunday and only. Morning draw. . Kristi Montanez MD LAB BLOOD ORDERABLES Final Resu lt Performing Organization Address [facility] Co de Phone Number [facility] [place] [address] * (ABNORMAL) Phosphorus (11/07/2024 5:41 AM CDT) Phosphorus, pl 2.0(L) 2.3 - 4.5 mg/dL Blood 11/07/2024 5:41 AM CDT 11/07/2024 6:00 AM CDT Kristi Montanez MD LAB BLOOD ORDERABLES Final Resu lt Performing Organization Address City/[facility]/ZIP Co de Phone Number [facility] [place] [address] * Lactate dehydrogenase (LD) (11/07/2024 5:41 AM CDT) Lactate dehydrogenase (LDH) 242 100 - 250 Units/L Blood 11/07/2024 5:41 AM CDT 11/07/2024 6:00 AM CDT Narrative [facility] - 11/07/2024 6:33 AM CDT Sunday and only. Morning draw. Kristi Montanez MD LAB BLOOD ORDERABLES Final Resu lt Performing Organization Address [facility] de Phone Number [facility] [place] [address] * (ABNORMAL) Comprehensive metabolic panel (11/07/2024 5:41 AM CDT) [facility] Sodium 137 135 - 145 mmol/L Potassium, pl 4.3 3.3 - 4.9 mmol/L [facility] Chloride 101 97 - 110 mmol/L [facility] CO2 22 22 - 32 mmol/L [facility] Anion gap 14 2 - 15 mmol/L [facility] BUN 32(H) 6 - 25 mg/dL [facility] Creatinine 1.11 0.80 - 1.30 mg/dL [facility] Glucose 167 70 - 199 mg/dL [facility] Comment: Interpretive Data Fasting glucose >/= 126 [...] interpretive data was last revised 2022. Calcium 7.3(L) 8.5 - 10.3 mg/dL [facility] Bilirubin, total 0.2 0.1 - 1.2 mg/dL [facility] Protein, pl 6.0(L) 6.5 - 8.5 g/dL [facility] Albumin 3.0(L) 3.5 - 5.0 g/dL [facility] Alk phos 410(H) 40 - 130 Units/L [facility] ALT 17 7 - 55 Units/L [facility] AST 26 10 - 50 Units/L [facility] Blood 11/07/2024 5:41 AM CDT 11/07/2024 6:00 AM CDT us Kristi Montanez MD LAB BLOOD ORDERABLES Final Resu lt Performing Organization Address City/State/[facility] de Phone Number [facility] [place] [address] * (ABNORMAL) C. difficile testing Stool (11/07/2024 2:53 AM CDT) [facility] Result Positive Negative Toxin Result Positive Negative [facility] C. diff result Positive, free toxin(A) Negative, free toxin [facility] C. diff interp Toxigenic Clostridioides (Clostridium) difficile detected. Analysis was performed using a two-step methodology using glutamate dehydrogenase antigen detection followed by detection of C. difficile toxin(s). [facility] Stool 11/07/2024 2:53 AM CDT 11/07/2024 6:02 AM CDT Narrative [facility] - 11/07/2024 8:36 AM CDT Testing for C. difficile is not recommended within 4 days of a negative result, 10 days of a positive, or 24 hours after laxative administration. If this order is clinically indicated, contact the lab and enter the passcode to complete this order.-MIGUELINA approved of sending stool sample us Kristi Montanez MD LAB MICROBIOLOGY - GENERAL ORDE [facility] Final Result NERY HUSAIN [facility] [place] [address] * (ABNORMAL) Urinalysis reflex to microscopic and culture Urine (11/07/2024 2:53 AM CDT) Color, ur Yellow Yellow Clarity, ur Clear Clear [facility] Specific gravity, ur >1.042(H) 1.003 - 1.030 [facility] pH, urine 6.0 [facility] Comment: Interpretive Data U rine pH is affected by diet, medications, systemic acid-base disturbances, and renal tubular function. pH may affect urinary stone formation. For example, urine pH below 6.0 may help reduce the tendency for calcium phosphate stones and pH greater than 6.0 may reduce the tendency for uric acid stone formation. Source: [facility] Current Interpretive Data was last revised on 2017 Protein, ur ql 1+(A) Negative [facility] Glucose, ur ql Negative Negative [facility] Ketones, ur Negative Negative [facility] Bilirubin, ur Negative Negative [facility] Blood, ur Negative Negative [facility] Urobilinogen, ur <2.0 <2.0 mg/dL [facility] Nitrite, ur Negative Negative [facility] Leukocyte esterase, ur Negative Negative [facility] UA reflex comment Reflex to microscopic UA will be performed. [facility] Urine 11/07/2024 2:53 AM CDT 11/07/2024 3:02 AM CDT Kristi Montanez MD LAB MICROBIOLOGY - GENERAL ORDProsper TODD Final Result NERY HUSAIN [facility] [place] [address] * (ABNORMAL) Urinalysis, microscopic only (11/07/2024 2:53 AM CDT) WBC, ur 0-5 0 - 5 /HPF RBC, ur 0-2 0 - 2 /HPF [facility] Epithelial cells, squamous, ur 1-5 0 - 5 /HPF [facility] Bacteria, ur Trace(A) [facility] Culture Reflex Comment Reflex conditions for urine culture (WBC >10) not met. [facility] Urine 11/07/2024 2:53 AM CDT 11/07/2024 3:02 AM CDT us Kristi Montanez MD LAB URINE ORDERABLES Final Resu lt Performing Organization Address [facility] Co de Phone Number [facility] [place] [address] * Infection Prevention VRE Culture Stool (11/07/2024 2:53 AM CDT) Report Final Report: Negative Stool 11/07/2024 2:53 AM CDT 11/07/2024 8:31 AM CDT Narrative [facility] - 11/09/2024 12:11 PM CDT Surveillance culture for Infection Prevention purposes only; results indicate colonization, not infection requiring treatment. Testing performed by [facility] ([phone]). us Ivania Hammer MD LAB MICROBIOLOGY - GENERAL ORDERABLES Final Result Performing Organization Address [facility] de Phone Number [facility] [place] [address] * Stool culture Stool Rectum (11/07/2024 2:53 AM CDT) Direct Specimen Exam Shiga Toxin Testing: Antigen detection assay for Shiga-toxin NEGATIVE for Shiga Toxin 1 and Shiga Toxin 2. Report Final Report: No growth of enteric bacterial pathogens [facility] Stool (Rectum) 11/07/2024 2: 53 AM CDT 11/07/2024 5:02 AM CDT Narrative [facility] - 11/11/2024 9:31 AM CDT Testing performed by [facility] ([phone]). Routine stool cultures include procedures to detect Salmonella, Shigella, Edwardsiella, Aeromonas, Pleisiomonas, Campylobacter, Yersinia, E. coli O157, and Shiga-like toxins. Vibrio is cultured only upon special request. If Vibrio is suspected, please call the laboratory at [phone]. Interpretive data was last updated November 27, 2016. Kristi Montanez MD LAB MICROBIOLOGY - GENERAL DAINAProsper CHILDERSALEISHA Final Result [facility] [place] [address] * (ABNORMAL) Differential, auto (11/07/2024 2:30 AM CDT) Pathologist [facility] Neutrophil abs 10.28(H) 1.50 - 6.50 K/cumm Imm gran abs 1.18(H) 0.00 - 0.10 K/cumm [facility] Lymphocyte abs 1.42 0.80 - 3.30 K/cumm [facility] Monocyte abs 1.70(H) 0.20 - 0.80 K/cumm [facility] Eosinophil abs 0.01 0.00 - 0.50 K/cumm [facility] Basophil abs 0.07 0.00 - 0.10 K/cumm [facility] Neutrophil pct 70.1 % [facility] Comment: Interpretive Data Percent cell count reference ranges are not reported, since discordance with absolute values may lead to misinterpretation of CBC data. Current Interpretive Data was last revised on 2017. Imm gran pct 8.0 % [facility] Comment: Interpretive Data Percent cell count reference ranges are not reported, since discordance with absolute values may lead to misinterpretation of CBC data. Current Interpretive Data was last revised on 2017. Lymphocyte pct 9.7 % [facility] Comment: Interpretive Data Percent cell count reference ranges are not reported, since discordance with absolute values may lead to misinterpretation of CBC data. Current Interpretive Data was last revised on 2017. Monocyte pct 11.6 % [facility] Comment: Interpretive Data Percent cell count reference ranges are not reported, since discordance with absolute values may lead to misinterpretation of CBC data. Current Interpretive Data was last revised on 2017. Eosinophil pct 0.1 % [facility] Comment: Interpretive Data Percent cell count reference ranges are not reported, since discordance with absolute values may lead to misinterpretation of CBC data. Current Interpretive Data was last revised on 2017. Basophil pct 0.5 % [facility] Comment: Interpretive Data Percent cell count reference ranges are not reported, since discordance with absolute values may lead to misinterpretation of CBC data. Current Interpretive Data was last revised on 2017. Blood 11/07/2024 2:30 AM CDT 11/07/2024 5:59 AM CDT us Kristi Montanez MD LAB BLOOD ORDERABLES Final Resu lt [facility] [place] [address] * (ABNORMAL) CBC with auto differential (11/07/2024 2:30 AM CDT) WBC 14.66(H) 3.80 - 9.90 K/cumm Hgb 8.0(L) 13.0 - 17.5 g/dL [facility] Hct 24.8(L) 38.9 - 50.3 % [facility] Plt 343 150 - 400 K/cumm [facility] MPV 9.9 9.1 - 12.3 fL [facility] RBC 3.18(L) 4.30 - 5.80 M/cumm [facility] MCV 78.0(L) 81.3 - 96.4 fL [facility] MCH 25.2(L) 27.1 - 33.3 pg [facility] MCHC 32.3 32.3 - 35.7 g/dL [facility] RDW CV 21.3(H) 11.1 - 14.9 % [facility] RDW SD 59.0(H) 35.7 - 48.1 fL [facility] NRBC abs 0.64(H) 0.00 - 0.01 K/cumm [facility] Blood 11/07/2024 2:30 AM CDT 11/07/2024 5:59 AM CDT Kristi Montanez MD LAB BLOOD ORDERABLES Final Resu lt Performing Organization Address City/[facility]/ZIP Co de Phone Number [facility] [place] [address] * eGFR (11/06/2024 9:55 PM CDT) eGFR 64 >=60 mL/min/1. 73 m2 Comment: Interpretive Data [...] interpretive data was last reviewed 2021. Blood 11/06/2024 9:55 PM CDT 11/06/2024 10:04 PM CDT us Kristi Montanez MD LAB BLOOD ORDERABLES Final Resu lt [facility] [place] [address] * POCT glucose (11/06/2024 9:55 PM CDT) Glucose, POC 158 70 - 199 mg/dL Blood 11/06/2024 9:55 PM CDT 11/06/2024 9:55 PM CDT us Devon Carlin MD LAB POCT ORDERABLES - DE VICE Final Result Performing Organization Address [facility] Co de Phone Number [facility] [place] [address] * (ABNORMAL) Phosphorus (11/06/2024 9:55 PM CDT) Pathologist [facility] Phosphorus, pl 1.9(L) 2.3 - 4.5 mg/dL Blood 11/06/2024 9:55 PM CDT 11/06/2024 10:04 PM CDT us Kristi Montanez MD LAB BLOOD ORDERABLES Final Resu lt Performing Organization Address [facility] Co de Phone Number [facility] [place] [address] * Magnesium (11/06/2024 9:55 PM CDT) [facility] Magnesium 1.5 1.4 - 2.5 mg/dL Blood 11/06/2024 9:55 PM CDT 11/06/2024 10:04 PM CDT Kristi Montanez MD LAB BLOOD ORDERABLES Final Resu lt Performing Organization Address [facility]/ZIP Co de Phone Number [facility] [place] [address] * (ABNORMAL) Comprehensive metabolic panel (11/06/2024 9:55 PM CDT) Pathologist [facility] Sodium 141 135 - 145 mmol/L Potassium, pl 4.6 3.3 - 4.9 mmol/L [facility] Chloride 104 97 - 110 mmol/L [facility] CO2 21(L) 22 - 32 mmol/L [facility] Anion gap 16(H) 2 - 15 mmol/L [facility] BUN 34(H) 6 - 25 mg/dL [facility] Creatinine 1.16 0.80 - 1.30 mg/dL [facility] Glucose 155 70 - 199 mg/dL [facility] Comment: Interpretive Data Fasting glucose >/= 126 [...] interpretive data was last revised 2022. Calcium 7.0(L) 8.5 - 10.3 mg/dL [facility] Bilirubin, total 0.3 0.1 - 1.2 mg/dL [facility] Protein, pl 5.9(L) 6.5 - 8.5 g/dL [facility] Albumin 3.0(L) 3.5 - 5.0 g/dL [facility] Alk phos 427(H) 40 - 130 Units/L [facility] ALT 21 7 - 55 Units/L [facility] AST 25 10 - 50 Units/L [facility] Blood 11/06/2024 9:55 PM CDT 11/06/2024 10:04 PM CDT us Kristi Montanez MD LAB BLOOD ORDERABLES Final Resu lt [facility] [place] [address] * CT abdomen pelvis with contrast (11/06/2024 4:07 PM CDT) Anatomical Region Laterality Modality Body N/A Computed Tomogra phy 11/06/2024 4:58 PM CDT Impressions 11/06/2024 5:03 PM CDT 1. New duodenal wall thickening with surrounding stranding, compatible with no duodenitis. There is upstream dilatation of the stomach, which represent some component of gastric outlet obstruction. 2. Multiple hypoenhancing liver lesions, not well evaluated on the prior examination due to noncontrast technique. These are better evaluated on the PET/CT dated 10/23/2024 with comparison to that examination limited due to differences in modality. 3. Unchanged retroperitoneal and pelvic lymphadenopathy and diffuse osseous metastatic disease. 4. Unchanged chronic left hydroureteronephrosis with atrophy of the left kidney. 5. Decrease in partially imaged small bilateral pleural effusions. Dictated by: Wiliam Gupta MD The radiology attending physician has personally reviewed this study, and had reviewed and/or edited this written report and agrees with it. Electronically signed by: Lora Can M.D. Narrative 11/06/2024 5:03 PM CDT EXAMINATION: Computed tomography of the abdomen and pelvis with intravenous contrast HISTORY: Metastatic prostate cancer, abdominal pain TECHNIQUE: Transaxial computed tomographic images of the abdomen and pelvis were obtained with intravenous contrast according to the standard protocol after the uneventful administration of 70 mL Opti-Ray 350 intravenous contrast. COMPARISON: CT abdomen pelvis 10/25/2024 FINDINGS: Partially imaged small bilateral pleural effusions, slightly decreased. Normal heart size. Multiple hypoenhancing liver lesions which are not well evaluated on the prior examination due to noncontrast technique but present on the PET/CT dated 10/23/2024. Comparison to that PET/CT is limited due to differences between modalities. For reference a 2.1 cm hypoenhancing lesion at the hepatic dome is present (series 2, image 25). Smaller subcentimeter hypoenhancing lesions in the central liver are present (series 2, image 31 and 32). Ill-defined hypoenhancing lesion in the right hemiliver (series 2, image 58). Normal gallbladder and spleen. Unchanged 1.0 cm hypoattenuating pancreatic lesion in the pancreatic head which may represent a side branch intraductal papillary mucinous neoplasm. Normal adrenal glands. Unchanged chronic left hydroureteronephrosis which can be followed to confluent retroperitoneal lymphadenopathy in with atrophy of the left kidney. Normal right kidney. Decompressed urinary bladder. Absent prostate. There is wall thickening with surrounding stranding of the duodenum, new from prior. There is stranding extending inferiorly along the right paracolic gutter, favored to be from the duodenal process. The stomach is distended. No bowel dilatation. The remainder of the small and large bowel are normal in appearance. Presacral stranding, unchanged, compatible with sequela of treatment to the prostate. Normal caliber abdominal aorta. Unchanged retroperitoneal confluent lymphadenopathy which measures up to a maximum of 3.7 x 3.6 cm in maximum axial dimensions. Unchanged pelvic lymphadenopathy. No free air. Mild body wall edema. Diffuse sclerotic osseous metastatic disease, unchanged. As compression deformities of multiple lower thoracic vertebral bodies, unchanged. Procedure Note Lora Can MD - 11/06/2024 EXAMINATION: Computed tomography of the abdomen and pelvis with intravenous contrast HISTORY: Metastatic prostate cancer, abdominal pain TECHNIQUE: Transaxial computed tomographic images of the abdomen and pelvis were obtained with intravenous contrast according to the standard protocol after the uneventful administration of 70 mL Opti-Ray 350 intravenous contrast. COMPARISON: CT abdomen pelvis 10/25/2024 FINDINGS: Partially imaged small bilateral pleural effusions, slightly decreased. Normal heart size. Multiple hypoenhancing liver lesions which are not well evaluated on the prior examination due to noncontrast technique but present on the PET/CT dated 10/23/2024. Comparison to that PET/CT is limited due to differences between modalities. For reference a 2.1 cm hypoenhancing lesion at the hepatic dome is present (series 2, image 25). Smaller subcentimeter hypoenhancing lesions in the central liver are present (series 2, image 31 and 32). Ill-defined hypoenhancing lesion in the right hemiliver (series 2, image 58). Normal gallbladder and spleen. Unchanged 1.0 cm hypoattenuating pancreatic lesion in the pancreatic head which may represent a side branch intraductal papillary mucinous neoplasm. Normal adrenal glands. Unchanged chronic left hydroureteronephrosis which can be followed to confluent retroperitoneal lymphadenopathy in with atrophy of the left kidney. Normal right kidney. Decompressed urinary bladder. Absent prostate. There is wall thickening with surrounding stranding of the duodenum, new from prior. There is stranding extending inferiorly along the right paracolic gutter, favored to be from the duodenal process. The stomach is distended. No bowel dilatation. The remainder of the small and large bowel are normal in appearance. Presacral stranding, unchanged, compatible with sequela of treatment to the prostate. Normal caliber abdominal aorta. Unchanged retroperitoneal confluent lymphadenopathy which measures up to a maximum of 3.7 x 3.6 cm in maximum axial dimensions. Unchanged pelvic lymphadenopathy. No free air. Mild body wall edema. Diffuse sclerotic osseous metastatic disease, unchanged. As compression deformities of multiple lower thoracic vertebral bodies, unchanged. IMPRESSION: 1. New duodenal wall thickening with surrounding stranding, compatible with no duodenitis. There is upstream dilatation of the stomach, which represent some component of gastric outlet obstruction. 2. Multiple hypoenhancing liver lesions, not well evaluated on the prior examination due to noncontrast technique. These are better evaluated on the PET/CT dated 10/23/2024 with comparison to that examination limited due to differences in modality. 3. Unchanged retroperitoneal and pelvic lymphadenopathy and diffuse osseous metastatic disease. 4. Unchanged chronic left hydroureteronephrosis with atrophy of the left kidney. 5. Decrease in partially imaged small bilateral pleural effusions. Dictated by: Wiliam Gupta MD The radiology attending physician has personally reviewed this study, and had reviewed and/or edited this written report and agrees with it. Electronically signed by: Lora Can M.D. [facility] PROJECT SAFETY MANAGER IMG CT PROCEDURES Final Result * Respiratory pathogen panel Nasopharyngeal (11/06/2024 2:25 PM CDT) Pathologist [facility] Influenza A RNA Not Detected Not Detected Influenza B RNA Not Detected Not Detected [facility] RSV RNA Not Detected Not Detected [facility] COVID-19 RNA Not Detected Not Detected [facility] Coronavirus 229E RNA Not Detected Not Detected [facility] Coronavirus HKU1 RNA Not Detected Not Detected [facility] Coronavirus NL63 RNA Not Detected Not Detected [facility] Coronavirus OC43 RNA Not Detected Not Detected [facility] Adenovirus DNA Not Detected Not Detected [facility] Metapneumovirus RNA Not Detected Not Detected [facility] Rhinovirus/Enterov irus RNA Not Detected Not Detected [facility] Parainfluenza 1 RNA Not Detected Not Detected [facility] Parainfluenza 2 RNA Not Detected Not Detected [facility] Parainfluenza 3 RNA Not Detected Not Detected [facility] Parainfluenza 4 RNA Not Detected Not Detected [facility] B. pertussis DNA Not Detected Not Detected [facility] B. parapertussis DNA Not Detected Not Detected [facility] C. pneumoniae DNA Not Detected Not Detected [facility] M. pneumoniae DNA Not Detected Not Detected [facility] Nasopharyngeal 11/06/2024 2: 25 PM CDT 11/06/2024 2:36 PM CDT Narrative [facility] - 11/06/2024 3:40 PM CDT Is the Patient experiencing symptoms consistent with COVID?->Yes Surveillance testing for transplant patient?->No Interpretive Data The [employer] FilmArray Respiratory Panel (RP2.1) assay is a multiplexed real-time PCR based nucleic acid test capable of simultaneous qualitative detection and identification of multiple respiratory viral and bacterial nucleic acids, including SARS Coronavirus 2 (the causative agent of COVID-19). The following bacteria, viruses and virus subtypes can be identified using the FilmArray RP2.1 assay: Bordetella pertussis, Bordetella parapertussis, Chlamydia pneumoniae, Mycoplasma pneumoniae, Adenovirus, SARS Coronavirus 2, seasonal coronaviruses (Coronavirus HKU1, Coronavirus NL63, Coronavirus 229E, and Coronavirus OC43), Influenza A, Influenza A subtype H1, Influenza A subtype H3, Influenza A subtype 2009 H1, Influenza B, Metapneumovirus, Parainfluenza 1, Parainfluenza 2, Parainfluenza 3, Parainfluenza 4, RSV, Rhinovirus/Enterovirus. Due to the genetic similarity between human Rhinovirus and Enterovirus, the FilmArray RP2.1 assay cannot reliably differentiate them. Coronavirus OC43 may cross-react with some isolates of Coronavirus HKU1. A dual positive result may be due to cross-reactivity or may indicate a co- infection. The detection and identification of specific viral and bacterial nucleic acids from individuals exhibiting signs and symptoms of a respiratory infection aids in the diagnosis of respiratory infection if used in conjunction with other clinical and epidemiological information. The results of this test should not be used as the sole basis for diagnosis, treatment, or other management decisions. Negative results in the setting of a respiratory illness may be due to infection with pathogens that are not detected by this test. Positive results do not rule out infection/co-infection with other organisms. The agent(s) detected by the FilmArray RP2.1 may not be the definite cause of disease. Additional testing (lab, imaging, etc.) may be necessary when evaluating a patient with possible respiratory tract infection. The FilmArray RP2.1 assay has FDA clearance for testing of PROJECT SAFETY MANAGER swabs. The performance of additional specimen types has been assessed by the performing laboratory. The performance characteristics of this assay have been determined by [facility] Molecular Infectious Disease Laboratory. Current interpretive data was last revised on 22. Ronel Bhatia Dina PROJECT SAFETY MANAGER LAB MICROBIOLOGY - GENER AL ORDERABLES Final Result [facility] [place] [address] * (ABNORMAL) POC Blood Gas and Chemistries, Arterial - (11/06/2024 1:47 PM CDT) Lactate, POC 4.3(C) 0.7 - 2.0 mmol/L Blood 11/06/2024 1:47 PM CDT 11/06/2024 1:47 PM CDT Saw Ga MD LAB POCT ORDERABLES - DEV ICE Final Result Performing Organization Address City/[facility]/ZIP Co de Phone Number [facility] [place] [address] * eGFR (11/06/2024 1:34 PM CDT) eGFR 66 >=60 mL/min/1. 73 m2 Comment: Interpretive Data [...] interpretive data was last reviewed 2021. Blood 11/06/2024 1:34 PM CDT 11/06/2024 1:58 PM CDT [facility] Jannette [facility] PROJECT SAFETY MANAGER LAB BLOOD ORDERABLES Fin al Result Performing Organization Address City/State/[facility] Co de Phone Number [facility] [place] [address] * (ABNORMAL) CBC with auto differential (11/06/2024 1:34 PM CDT) WBC 12.36(H) 3.80 - 9.90 K/cumm Hgb 9.2(L) 13.0 - 17.5 g/dL [facility] Hct 29.0(L) 38.9 - 50.3 % [facility] Plt 399 150 - 400 K/cumm [facility] MPV 9.8 9.1 - 12.3 fL [facility] RBC 3.73(L) 4.30 - 5.80 M/cumm [facility] MCV 77.7(L) 81.3 - 96.4 fL [facility] MCH 24.7(L) 27.1 - 33.3 pg [facility] MCHC 31.7(L) 32.3 - 35.7 g/dL [facility] RDW CV 21.6(H) 11.1 - 14.9 % [facility] RDW SD 60.2(H) 35.7 - 48.1 fL [facility] NRBC abs 0.36(H) 0.00 - 0.01 K/cumm [facility] Morphologic Screen Results confirmed by manual morphology review. [facility] Blood 11/06/2024 1:34 PM CDT 11/06/2024 1:58 PM CDT [facility] PROJECT SAFETY MANAGER LAB BLOOD ORDERABLES Fin al Result [facility] [place] [address] * (ABNORMAL) Manual Differential (11/06/2024 1:34 PM CDT) Differential Manual Neutrophil abs 9.90(H) 1.50 - 6.50 K/cumm [facility] Imm gran abs 0.11(H) 0.00 - 0.10 K/cumm [facility] Lymphocyte abs 0.85 0.80 - 3.30 K/cumm [facility] Monocyte abs 1.38(H) 0.20 - 0.80 K/cumm [facility] Basophil abs 0.11(H) 0.00 - 0.10 K/cumm [facility] Neutrophil pct 80.1 % [facility] Comment: Interpretive Data Percent cell count reference ranges are not reported, since discordance with absolute values may lead to misinterpretation of CBC data. Current Interpretive Data was last revised on 2017. Lymphocyte pct 6.9 % [facility] Comment: Interpretive Data Percent cell count reference ranges are not reported, since discordance with absolute values may lead to misinterpretation of CBC data. Current Interpretive Data was last revised on 2017. Monocyte pct 11.2 % [facility] Comment: Interpretive Data Percent cell count reference ranges are not reported, since discordance with absolute values may lead to misinterpretation of CBC data. Current Interpretive Data was last revised on 2017. Basophil pct 0.9 % [facility] Comment: Interpretive Data Percent cell count reference ranges are not reported, since discordance with absolute values may lead to misinterpretation of CBC data. Current Interpretive Data was last revised on 2017. Promyelocyte pct 0.9(H) 0.0 - 0.0 % [facility] Blood 11/06/2024 1:34 PM CDT 11/06/2024 2:02 PM CDT us Ronel Jannette Seeker PROJECT SAFETY MANAGER LAB BLOOD ORDERABLES Fin al Result [facility]ERY Albarran [facility] [place] [address] * Blood culture Blood (11/06/2024 1:34 PM CDT) Report Final Report: No growth Blood 11/06/2024 1:34 PM CDT 11/06/2024 2:23 PM CDT Narrative NERY ARAGON - 11/10/2024 4:00 PM CDT From a different site than #1. Collection->Peripheral 1. Blood cultures are incubated for 4 days on a continuously monitored blood culture system. The first report of a negative culture is issued within 24 hours of receipt of the specimen in the laboratory. 2. Positive culture results are reported as soon as they are detected. 3. The most important factor for detection of microbes in the setting of bloodstream infection is the volume of blood submitted for culture. Failure to collect an optimal blood volume can result in false negative blood cultures. 4. For pediatric patients, the recommended blood volume to collect follows a weight based strategy. See the electronic test catalog for collection instructions. 5. For positive blood cultures, a rapid molecular test may be performed for organism identification using the oliverio ePlex blood culture identification panel for gram positive (BCID-GP) and gram negative (BCID-GN) organisms. This nucleic acid amplification test detects microbial DNA in positive blood culture broth. This assay has been cleared by the [place] Food and Drug Administration and its performance characteristics have been verified by the [facility]. For questions about this culture, contact the Microbiology Laboratory at [phone]. Interpretive data was last revised on 24. Ronel Arroyo PROJECT SAFETY MANAGER LAB MICROBIOLOGY - [facility] AL ORDERABLES Final Result NERY Albarran [facility] [place] [address] * Blood culture Blood (11/06/2024 1:34 PM CDT) Report Final Report: No growth Blood 11/06/2024 1:34 PM CDT 11/06/2024 2:23 PM CDT Narrative NERY HUSAIN - 11/10/2024 4:00 PM CDT Collection->Peripheral 1. Blood cultures are incubated for 4 days on a continuously monitored blood culture system. The first report of a negative culture is issued within 24 hours of receipt of the specimen in the laboratory. 2. Positive culture results are reported as soon as they are detected. 3. The most important factor for detection of microbes in the setting of bloodstream infection is the volume of blood submitted for culture. Failure to collect an optimal blood volume can result in false negative blood cultures. 4. For pediatric patients, the recommended blood volume to collect follows a weight based strategy. See the electronic test catalog for collection instructions. 5. For positive blood cultures, a rapid molecular test may be performed for organism identification using the o[employer] ePlex blood culture identification panel for gram positive (BCID-GP) and gram negative (BCID-GN) organisms. This nucleic acid amplification test detects microbial DNA in positive blood culture broth. This assay has been cleared by the [place] Food and Drug Administration and its performance characteristics have been verified by the [facility]. For questions about this culture, contact the Microbiology Laboratory at [phone]. Interpretive data was last revised on 24. [facility] - GENER AL ORDERABLES Final Result [facility] [place] [address] * (ABNORMAL) Phosphorus (11/06/2024 1:34 PM CDT) [facility] Phosphorus, pl 2.2(L) 2.3 - 4.5 mg/dL Blood 11/06/2024 1:34 PM CDT 11/06/2024 1:58 PM CDT [facility] PROJECT SAFETY MANAGER LAB BLOOD ORDERABLES Fin al Result Performing Organization Address City/[facility]/ZIP Co de Phone Number [facility] [place] [address] * Magnesium (11/06/2024 1:34 PM CDT) Magnesium 1.7 1.4 - 2.5 mg/dL Blood 11/06/2024 1:34 PM CDT 11/06/2024 1:58 PM CDT us Ronel Jannette Seeker PROJECT SAFETY MANAGER LAB BLOOD ORDERABLES Fin al Result [facility] [place] [address] * (ABNORMAL) Comprehensive metabolic panel (11/06/2024 1:34 PM CDT) Pathologist [facility] Sodium 141 135 - 145 mmol/L Potassium, pl 5.1(H) 3.3 - 4.9 mmol/L [facility] Chloride 100 97 - 110 mmol/L [facility] CO2 24 22 - 32 mmol/L [facility] Anion gap 17(H) 2 - 15 mmol/L [facility] BUN 32(H) 6 - 25 mg/dL [facility] Creatinine 1.13 0.80 - 1.30 mg/dL [facility] Glucose 151 70 - 199 mg/dL [facility] Comment: Interpretive Data Fasting glucose >/= 126 [...] interpretive data was last revised 2022. Calcium 8.1(L) 8.5 - 10.3 mg/dL [facility] Bilirubin, total 0.4 0.1 - 1.2 mg/dL [facility] Protein, pl 7.0 6.5 - 8.5 g/dL [facility] Albumin 3.1(L) 3.5 - 5.0 g/dL [facility] Alk phos 471(H) 40 - 130 Units/L [facility] ALT 24 7 - 55 Units/L [facility] AST 37 10 - 50 Units/L [facility] Blood 11/06/2024 1:34 PM CDT 11/06/2024 1:58 PM CDT us Ronel Arroyo NP LAB BLOOD ORDERABLES Fin al Result Performing Organization Address [facility] Co de Phone Number [facility] [place] [address] * eGFR (10/30/2024 9:10 AM CDT) eGFR 88 >=60 mL/min/1. 73 m2 Comment: Interpretive Data [...] interpretive data was last reviewed 2021. Blood 10/30/2024 9:10 AM CDT 10/30/2024 9:16 AM CDT us Devon Carlin MD LAB BLOOD ORDERABLES Fin al Result Performing Organization Address [facility] Co de Phone Number [facility] [place] [address] * (ABNORMAL) CBC with auto differential (10/30/2024 9:10 AM CDT) WBC 9.00 3.80 - 9.90 K/cumm Comment:Testing performed by : [facility], [address] [place] [address] Hgb 9.6(L) 13.0 - 17.5 g/dL CERNER BJ Comment:Testing performed by : [facility], [address] [place] [address] Hct 29.9(L) 38.9 - 50.3 % CERNER BJ Comment:Testing performed by : [facility], [address] [place] [address] Plt 481(H) 150 - 400 K/cumm CERNER BJ Comment:Testing performed by : [facility], [address] [place] [address] MPV 6.9 6.8 - 10.4 fL CERNER BJ Comment:Testing performed by : [facility], [address] [place] [address] RBC 3.79(L) 4.30 - 5.80 M/cumm CERNER BJ Comment:Testing performed by : [facility], [address] [place] [address] MCV 79.0(L) 81.3 - 96.4 fL CERNER BJ Comment:Testing performed by : [facility], [address] [place] [address] MCH 25.3(L) 27.1 - 33.3 pg CERNER BJ Comment:Testing performed by : [facility], [address] [place] [address] MCHC 32.0(L) 32.3 - 35.7 g/dL [facility]ERNER BJ Comment:Testing performed by : [facility], [address] [place] [address] RDW CV 21.7(H) 11.1 - 14.9 % CERNER BJ Comment:Testing performed by : [facility], [address] [place], [place] [phone] NRBC abs 0.10(H) 0.00 - 0.01 K/cumm CERNER BJ Comment:Testing performed by : [facility], [address] [place], [place] [phone] Blood 10/30/2024 9:10 AM CDT 10/30/2024 9:14 AM CDT us Devon Carlin MD LAB BLOOD ORDERABLES Gee juliane Result - Final [facility] [place] [address] * (ABNORMAL) Manual Differential (10/30/2024 9:10 AM CDT) Cells Counted 200 Comment:Testing performed by : [facility], [address] [place], [place] [phone] Neutrophil abs 7.02(H) 1.50 - 6.50 K/cumm CERNER BJ Comment:Testing performed by : [facility], [address] [place], [place] [phone] Lymphocyte abs 1.26 0.80 - 3.30 K/cumm CERNER BJ Comment:Testing performed by : [facility], [address] [place], [place] [phone] Monocyte abs 0.63 0.20 - 0.80 K/cumm CERNER BJ Comment:Testing performed by : [facility], [address] [place], [place] [phone] Eosinophil abs 0.00 0.00 - 0.50 K/cumm CERNER BJ Comment:Testing performed by : [facility], [address] [place], [place] [phone] Basophil abs 0.00 0.00 - 0.10 K/cumm CERNER BJ Comment:Testing performed by : [facility], [address] [place] [address] Neutrophil pct 78.0 % [facility] Comment: Interpretive Data Percent cell count reference ranges are not reported, since discordance with absolute values may lead to misinterpretation of CBC data. Current Interpretive Data was last revised on 2017. Testing performed by: [facility], [address] [place] [phone] Lymphocyte pct 14.0 % [facility] Comment: Interpretive Data Percent cell count reference ranges are not reported, since discordance with absolute values may lead to misinterpretation of CBC data. Current Interpretive Data was last revised on 2017. Testing performed by: [facility], [address] [place] [phone] Monocyte pct 7.0 % [facility] Comment: Interpretive Data Percent cell count reference ranges are not reported, since discordance with absolute values may lead to misinterpretation of CBC data. Current Interpretive Data was last revised on 2017. Testing performed by: [facility], [address] [place] [phone] Eosinophil pct 0.0 % [facility] Comment: Interpretive Data Percent cell count reference ranges are not reported, since discordance with absolute values may lead to misinterpretation of CBC data. Current Interpretive Data was last revised on 2017. Testing performed by: [facility], [address] [place] [phone] Basophil pct 0.0 % [facility] Comment: Interpretive Data Percent cell count reference ranges are not reported, since discordance with absolute values may lead to misinterpretation of CBC data. Current Interpretive Data was last revised on 2017. Testing performed by: [facility], [address] [place] [phone] Metamyelocyte pct 1.0(H) 0.0 - 0.0 % [facility] Comment:Testing performed by : [facility], [address] [place] [phone] Myelocyte pct 1.0(H) 0.0 - 0.0 % [facility] Comment:Testing performed by : [facility], [address] [place] [phone] RBC morphology NRBCs present(A) [facility] Comment:Testing performed by : [facility], [address] [place], [place] [phone] Polychromasia 1+(A) NERY HUSAIN Comment:Testing performed by : [facility], [address] [place], [place] [phone] Hypochromasia 1+(A) NERY HUSAIN Comment:Testing performed by : [facility], [address] [place], [place] [phone] Anisocytosis 1+(A) NERY HUSAIN Comment:Testing performed by : [facility], [address] [place], [place] [phone] Poikilocytosis 1+(A) NERY HUSAIN Comment:Testing performed by : [facility], [address] [place] [phone] Macrocytes 1+(A) NERY [facility] Comment:Testing performed by : [facility], [address] [place] [phone] Elliptocytes 1+(A) NERY [facility] Comment:Testing performed by : [facility], [address] [place], [place] [phone] Target cells 1+(A) NERY [facility] Comment:Testing performed by : [facility], [address] [place], [place] [phone] Platelet estimate Adequate NERY [facility] Comment:Testing performed by : [facility], [address] [place] [phone] Giant platelets Present(A) NERY [facility] Comment:Testing performed by : [facility], [address] [place] [phone] Blood 10/30/2024 9:10 AM CDT 10/30/2024 9:14 AM CDT us Devon Carlin MD LAB BLOOD ORDERABLES Fin al Result Performing Organization Address City/State/[facility] Co de Phone Number [facility] [place] [address] * (ABNORMAL) PSA diagnostic (10/30/2024 9:10 AM CDT) PSA-Total 197.00(H) <=6.20 ng/mL Comment: Interpretive Data AGE SEX [...] Current interpretive data last revised 21. Blood 10/30/2024 9:10 AM CDT 10/30/2024 9:16 AM CDT us Devon Carlin MD LAB BLOOD ORDERABLES Fin al Result Performing Organization Address City/State/[facility] Co de Phone Number [facility] [place] [address] * (ABNORMAL) Comprehensive metabolic panel (10/30/2024 9:10 AM CDT) Pathologist [facility] Sodium 140 135 - 145 mmol/L Potassium, pl 4.9 3.3 - 4.9 mmol/L [facility] Chloride 104 97 - 110 mmol/L [facility] CO2 22 22 - 32 mmol/L [facility] Anion gap 14 2 - 15 mmol/L [facility] BUN 21 6 - 25 mg/dL [facility] Creatinine 0.86 0.80 - 1.30 mg/dL [facility] Glucose 145 70 - 199 mg/dL [facility] Comment: Interpretive Data Fasting glucose >/= 126 [...] interpretive data was last revised 2022. Calcium 6.9(L) 8.5 - 10.3 mg/dL [facility] Bilirubin, total 0.3 0.1 - 1.2 mg/dL [facility] Protein, pl 7.0 6.5 - 8.5 g/dL [facility] Albumin 3.2(L) 3.5 - 5.0 g/dL [facility] Alk phos 540(H) 40 - 130 Units/L [facility] ALT 38 7 - 55 Units/L [facility] AST 64(H) 10 - 50 Units/L [facility] Blood 10/30/2024 9:10 AM CDT 10/30/2024 9:16 AM CDT Devon Carlin MD LAB BLOOD ORDERABLES Fin al Result Performing Organization Address City/[facility]/ZIP Co de Phone Number [facility] [place] [address] * Phosphorus (10/28/2024 6:45 PM CDT) Phosphorus, pl 2.5 2.3 - 4.5 mg/dL Blood 10/28/2024 6:45 PM CDT 10/28/2024 7:00 PM CDT Vivian Fonseca MD LAB BLOOD ORDERABLES Fin al Result [facility] [place] [address] * POCT glucose (10/28/2024 4:32 PM CDT) Glucose, POC 129 70 - 199 mg/dL Blood 10/28/2024 4:32 PM CDT 10/28/2024 4:32 PM CDT Vivian Fonseca MD LAB POCT ORDERABLES - DE VICE Final Result Performing Organization Address City/[facility]/ZIP Co de Phone Number [facility] [place] [address] * POCT glucose (10/28/2024 12:08 PM CDT) Glucose, POC 193 70 - 199 mg/dL Blood 10/28/2024 12:0 8 PM CDT 10/28/2024 12:08 PM CDT us Vivian Fonseca MD LAB POCT ORDERABLES - DE VICE Final Result Performing Organization Address [facility] Co de Phone Number [facility] [place] [address] * POCT glucose (10/28/2024 7:16 AM CDT) Glucose, POC 105 70 - 199 mg/dL Blood 10/28/2024 7:16 AM CDT 10/28/2024 7:16 AM CDT us Vivian Fonseca MD LAB POCT ORDERABLES - DE VICE Final Result Performing Organization Address [facility] Co de Phone Number [facility] [place] [address] * (ABNORMAL) Lactate (10/28/2024 12:51 AM CDT) Lactate 5.7(C) 0.7 - 2.0 mmol/L Blood 10/28/2024 12:5 1 AM CDT 10/28/2024 1:01 AM CDT us Nina Andrew MD LAB BLOOD ORDERABLES Carina l Result Performing Organization Address City/[facility]/ZIP Co de Phone Number [facility] [place] [address] * eGFR (10/28/2024 12:51 AM CDT) Pathologist [facility] eGFR 80 >=60 mL/min/1. 73 m2 Comment: Interpretive Data [...] interpretive data was last reviewed 2021. Blood 10/28/2024 12:5 1 AM CDT 10/28/2024 1:00 AM CDT Bossman Hernandez DO LAB BLOOD ORDERABLES Final Resul t [facility] [place] [address] * (ABNORMAL) Differential, auto (10/28/2024 12:51 AM CDT) Pathologist [facility] Neutrophil abs 6.30 1.50 - 6.50 K/cumm Imm gran abs 0.36(H) 0.00 - 0.10 K/cumm [facility] Lymphocyte abs 1.04 0.80 - 3.30 K/cumm [facility] Monocyte abs 0.63 0.20 - 0.80 K/cumm [facility] Eosinophil abs 0.00 0.00 - 0.50 K/cumm [facility] Basophil abs 0.01 0.00 - 0.10 K/cumm [facility] Neutrophil pct 75.5 % [facility] Comment: Interpretive Data Percent cell count reference ranges are not reported, since discordance with absolute values may lead to misinterpretation of CBC data. Current Interpretive Data was last revised on 2017. Imm gran pct 4.3 % NERY [facility] Comment: Interpretive Data Percent cell count reference ranges are not reported, since discordance with absolute values may lead to misinterpretation of CBC data. Current Interpretive Data was last revised on 2017. Lymphocyte pct 12.5 % NERY [facility] Comment: Interpretive Data Percent cell count reference ranges are not reported, since discordance with absolute values may lead to misinterpretation of CBC data. Current Interpretive Data was last revised on 2017. Monocyte pct 7.6 % NERY [facility] Comment: Interpretive Data Percent cell count reference ranges are not reported, since discordance with absolute values may lead to misinterpretation of CBC data. Current Interpretive Data was last revised on 2017. Eosinophil pct 0.0 % NERY [facility] Comment: Interpretive Data Percent cell count reference ranges are not reported, since discordance with absolute values may lead to misinterpretation of CBC data. Current Interpretive Data was last revised on 2017. Basophil pct 0.1 % [facility] Comment: Interpretive Data Percent cell count reference ranges are not reported, since discordance with absolute values may lead to misinterpretation of CBC data. Current Interpretive Data was last revised on 2017. Blood 10/28/2024 12:5 1 AM CDT 10/28/2024 1:02 AM CDT Bossman Hernandez DO LAB BLOOD ORDERABLES Final Resul t NERY HUSAIN [facility] [place] [address] * Critical Result Callback Chemistry (10/28/2024 12:51 AM CDT) Date Notified [id number] Time Notified 130 NERY HUSAIN TestName Lactate NERY ARAGON Called/Read Back Yumiko HUSAIN Credentials RN NERY HUSAIN Called By RUBY HUSAIN Blood 10/28/2024 12:5 1 AM CDT 10/28/2024 1:01 AM CDT Nina Andrew MD LAB BLOOD ORDERABLES Carina l Result Performing Organization Address [facility] Co de Phone Number [facility] [place] [address] * (ABNORMAL) Calcium, ionized (10/28/2024 12:51 AM CDT) [facility] Calcium, Ionized 3.65(L) 4.50 - 5.10 mg/dL Blood 10/28/2024 12:5 1 AM CDT 10/28/2024 12:58 AM CDT Nina Andrew MD LAB BLOOD ORDERABLES Carina l Result Performing Organization Address [facility] de Phone Number [facility] [place] [address] * (ABNORMAL) CBC with auto differential (10/28/2024 12:51 AM CDT) [facility] WBC 8.34 3.80 - 9.90 K/cumm Hgb 8.4(L) 13.0 - 17.5 g/dL [facility] Hct 26.7(L) 38.9 - 50.3 % [facility] Plt 459(H) 150 - 400 K/cumm [facility] MPV 9.1 9.1 - 12.3 fL [facility] RBC 3.39(L) 4.30 - 5.80 M/cumm [facility] MCV 78.8(L) 81.3 - 96.4 fL [facility] MCH 24.8(L) 27.1 - 33.3 pg [facility] MCHC 31.5(L) 32.3 - 35.7 g/dL [facility] RDW CV 21.2(H) 11.1 - 14.9 % [facility] RDW SD 60.4(H) 35.7 - 48.1 fL [facility] NRBC abs 0.15(H) 0.00 - 0.01 K/cumm [facility] Blood 10/28/2024 12:5 1 AM CDT 10/28/2024 1:02 AM CDT Bossman Hernandez DO LAB BLOOD ORDERABLES Final Resul t Performing Organization Address City/[facility] Co de Phone Number [facility] [place] [address] * Vitamin D 25 hydroxy (10/28/2024 12:51 AM CDT) Pathologist [facility] Vitamin D 25-OH 56 30 - 80 ng/mL Blood 10/28/2024 12:5 1 AM CDT 10/28/2024 1:00 AM CDT Nina Andrew MD LAB BLOOD ORDERABLES Carina l Result Performing Organization Address [facility] de Phone Number [facility] [place] [address] * (ABNORMAL) Phosphorus (10/28/2024 12:51 AM CDT) Pathologist [facility] Phosphorus, pl 1.2(L) 2.3 - 4.5 mg/dL Blood 10/28/2024 12:5 1 AM CDT 10/28/2024 1:00 AM CDT Bossman Hernandez DO LAB BLOOD ORDERABLES Final Resul t Performing Organization Address [facility] de Phone Number [facility] [place] [address] * (ABNORMAL) PTH (10/28/2024 12:51 AM CDT) Pathologist [facility] PTH 252(H) 15 - 65 pg/mL Blood 10/28/2024 12:5 1 AM CDT 10/28/2024 1:01 AM CDT Nina Andrew MD LAB BLOOD ORDERABLES Carina gardner Result [facility] [place] [address] * (ABNORMAL) Comprehensive metabolic panel (10/28/2024 12:51 AM CDT) Pathologist [facility] Sodium 138 135 - 145 mmol/L Potassium, pl 5.0(H) 3.3 - 4.9 mmol/L CERNER [facility] Chloride 104 97 - 110 mmol/L [facility] CO2 21(L) 22 - 32 mmol/L [facility] Anion gap 13 2 - 15 mmol/L [facility] BUN 22 6 - 25 mg/dL [facility] Creatinine 0.96 0.80 - 1.30 mg/dL [facility] Glucose 138 70 - 199 mg/dL [facility] Comment: Interpretive Data Fasting glucose >/= 126 [...] interpretive data was last revised 2022. Calcium 7.2(L) 8.5 - 10.3 mg/dL CERNER [facility] Bilirubin, total 0.2 0.1 - 1.2 mg/dL [facility] Protein, pl 6.9 6.5 - 8.5 g/dL [facility] Albumin 2.7(L) 3.5 - 5.0 g/dL [facility] Alk phos 481(H) 40 - 130 Units/L CERNER [facility] ALT 29 7 - 55 Units/L CERNER [facility] AST 47 10 - 50 Units/L [facility] Blood 10/28/2024 12:5 1 AM CDT 10/28/2024 1:00 AM CDT Roxikamini Hernandez [facility] BLOOD ORDERABLES Final Resul t Performing Organization Address [facility] [place] [address] * POCT glucose (10/27/2024 8:46 PM CDT) Glucose, POC 153 70 - 199 mg/dL Blood 10/27/2024 8:46 PM CDT 10/27/2024 8:46 PM CDT Roxijennikamini Hernandez [facility] POCT ORDERABLES - DEVICE Fin al Result Performing Organization Address [facility] [place] [address] * POCT glucose (10/27/2024 5:33 PM CDT) Glucose, POC 191 70 - 199 mg/dL Blood 10/27/2024 5:33 PM CDT 10/27/2024 5:33 PM CDT [facility] POCT ORDERABLES - DEVICE Fin al Result Performing Organization Address [facility] [place] [address] * US Vein Duplex Lower Extremity Bilateral Complete (10/27/2024 1:22 PM CDT) Anatomical Region Laterality Modality Vascular Bilateral Ultrasound 10/27/2024 11:0 9 AM CDT Narrative 10/28/2024 12:17 AM CDT [facility] - Department of Vascular Surgery, Vascular Laboratory [address] [place] [id number] Lower Extremity Venous Ultrasound Report Patient Name: JARRELL STEEN : 1945 (79y 5m) Study Date: 10/27/2024 11:09:57 AM Gender: M Tech: Location: [id number] Ref Provider: NINA ANDREW Quality: Adequate Order Provider: NINA ANDREW PROCEDURES: Vascular Report: Venous Duplex imaging was performed bilaterally in the lower extremities. The common femoral, femoral, popliteal, posterior tibial, peroneal veins were evaluated for patency, spontaneity and phasicity with Doppler, compression and augmentation maneuvers. Great saphenous vein proximal at the junction was evaluated with compression maneuvers. INDICATIONS: Pain in Leg, Left - FINDINGS: Performing Corrective Therapist: Arlette Walker RVT. Bilateral: Venous Doppler signals in the bilateral lower extremity are within normal limits for spontaneity and phasicity and respond normally to augmentation maneuvers. No evidence of deep vein thrombus by duplex, proximal to the calf. CONCLUSIONS: 1. There is no evidence of acute deep vein thrombosis in the lower extremities bilaterally. Noninvasive venous studies cannot rule out isolated calf vein obstruction. HISTORY: A-Fib, Cancer, DM. PREVIOUS STUDIES: Previous study performed on 10/20/2024 - negative for DVT. DISCLAIMER: The study images and the final report will be retained in the patient chart by the Vascular Laboratory for the legally required time period. This chart constitutes the legal record of any testing performed. ATTESTATION: I have reviewed and interpreted the pertinent images and measurements of this study. I attest to the conclusions in the final report that is provided above. Electronically Signed By: Dane Krause MD FACS 10/28/2024 12:09:06 AM CDT Procedure Note Dane Krause MD - 10/28/2024 [facility] - Department of Vascular Surgery,Vascular Laboratory [address] [place] [address] Lower Extremity Venous Ultrasound Report Patient Name: JARRELL STEEN : 1945 (79y 5m) Study Date: 10/27/2024 11:09:57 AM Gender: M Tech: Location: [id number] Ref Provider: NINA ANDREW Quality: Adequate Order Provider: NINA ANDREW PROCEDURES: Vascular Report: Venous Duplex imaging was performed bilaterally in the lower extremities.The common femoral, femoral, popliteal, posterior tibial, peroneal veins wereevaluated for patency, spontaneity and phasicity with Doppler, compression and augmentationmaneuvers. Great saphenous vein proximal at the junction was evaluated with compressionmaneuvers. INDICATIONS: Pain in Leg, Left - FINDINGS: Performing Corrective Therapist: Arlette Walker RVT. Bilateral: Venous Doppler signals in the bilateral lower extremity are within normallimits for spontaneity and phasicity and respond normally to augmentation maneuvers.No evidence of deep vein thrombus by duplex, proximal to the calf. CONCLUSIONS: 1. There is no evidence of acute deep vein thrombosis in the lowerextremities bilaterally. Noninvasive venous studies cannot rule out isolated calf veinobstruction. HISTORY: A-Fib, Cancer, DM. PREVIOUS STUDIES: Previous study performed on 10/20/2024 - negative for DVT. DISCLAIMER: The study images and the final report will be retained in the patientchart by the Vascular Laboratory for the legally required time period. This chartconstitutes the legal record of any testing performed. ATTESTATION: I have reviewed and interpreted the pertinent images and measurements ofthis study. I attest to the conclusions in the final report that is provided above. Electronically Signed By: Dane Krause MD [facility] 10/28/2024 12:09:06 AM CDT Nina Andrew MD IMG US PROCEDURES Final R esult * (ABNORMAL) POCT glucose (10/27/2024 11:33 AM CDT) Glucose, POC 206(H) 70 - 199 mg/dL Blood 10/27/2024 11:3 3 AM CDT 10/27/2024 11:33 AM CDT Bossman Hernandez DO LAB POCT ORDERABLES - DEVICE Fin al Result NERY [facility] [place] [address] * POCT glucose (10/27/2024 7:21 AM CDT) Glucose, POC 107 70 - 199 mg/dL Blood 10/27/2024 7:21 AM CDT 10/27/2024 7:21 AM CDT Jiahua Hernandez DO LAB POCT ORDERABLES - DEVICE Fin al Result Performing Organization Address City/[facility]/ZIP Co de Phone Number [facility] [place] [address] * (ABNORMAL) Lactate (10/27/2024 1:19 AM CDT) Lactate 5.8(C) 0.7 - 2.0 mmol/L Blood 10/27/2024 1:19 AM CDT 10/27/2024 1:32 AM CDT Nina Andrew MD LAB BLOOD ORDERABLES Carina l Result Performing Organization Address [facility] Co de Phone Number [facility] [place] [address] * eGFR (10/27/2024 1:19 AM CDT) eGFR 77 >=60 mL/min/1. 73 m2 Comment: Interpretive Data [...] interpretive data was last reviewed 2021. Blood 10/27/2024 1:19 AM CDT 10/27/2024 1:28 AM CDT Jiahua Hernandez DO LAB BLOOD ORDERABLES Final Resul t [facility] [place] [address] * (ABNORMAL) Differential, auto (10/27/2024 1:19 AM CDT) Neutrophil abs 6.28 1.50 - 6.50 K/cumm Imm gran abs 0.19(H) 0.00 - 0.10 K/cumm [facility] Lymphocyte abs 0.91 0.80 - 3.30 K/cumm [facility] Monocyte abs 0.66 0.20 - 0.80 K/cumm [facility] Eosinophil abs 0.00 0.00 - 0.50 K/cumm [facility] Basophil abs 0.01 0.00 - 0.10 K/cumm [facility] Neutrophil pct 78.0 % [facility] Comment: Interpretive Data Percent cell count reference ranges are not reported, since discordance with absolute values may lead to misinterpretation of CBC data. Current Interpretive Data was last revised on 2017. Imm gran pct 2.4 % [facility] Comment: Interpretive Data Percent cell count reference ranges are not reported, since discordance with absolute values may lead to misinterpretation of CBC data. Current Interpretive Data was last revised on 2017. Lymphocyte pct 11.3 % [facility] Comment: Interpretive Data Percent cell count reference ranges are not reported, since discordance with absolute values may lead to misinterpretation of CBC data. Current Interpretive Data was last revised on 2017. Monocyte pct 8.2 % [facility] Comment: Interpretive Data Percent cell count reference ranges are not reported, since discordance with absolute values may lead to misinterpretation of CBC data. Current Interpretive Data was last revised on 2017. Eosinophil pct 0.0 % [facility] Comment: Interpretive Data Percent cell count reference ranges are not reported, since discordance with absolute values may lead to misinterpretation of CBC data. Current Interpretive Data was last revised on 2017. Basophil pct 0.1 % [facility] Comment: Interpretive Data Percent cell count reference ranges are not reported, since discordance with absolute values may lead to misinterpretation of CBC data. Current Interpretive Data was last revised on 2017. Blood 10/27/2024 1:19 AM CDT 10/27/2024 1:32 AM CDT Bossman Hernandez DO LAB BLOOD ORDERABLES Final Resul t Performing Organization Address City/[facility]/ZIP Co de Phone Number [facility] [place] [address] * Critical Result Callback Chemistry (10/27/2024 1:19 AM CDT) Date Notified 20241027 Time Notified 200 NERY [facility] TestName Moustapha GABRIEL [facility] Called/Read Back Samantha GABRIEL [facility] Credentials RN NERY [facility] Called By apple GABRIEL [facility] Blood 10/27/2024 1:19 AM CDT 10/27/2024 1:32 AM CDT Nina Andrew MD LAB BLOOD ORDERABLES Carina l Result Performing Organization Address [facility] [place] [address] * Thyroid Function [place] (10/27/2024 1:19 AM CDT) TSH 1.07 0.30 - 4.20 mcIUnit/mL Blood 10/27/2024 1:19 AM CDT 10/27/2024 1:28 AM CDT Nina Andrew MD LAB BLOOD ORDERABLES Carina l Result Performing Organization Address City[facility]/[place] [address] * (ABNORMAL) Calcium, ionized (10/27/2024 1:19 AM CDT) Calcium, Ionized 3.31(L) 4.50 - 5.10 mg/dL Blood 10/27/2024 1:19 AM CDT 10/27/2024 1:28 AM CDT Nina Andrew MD LAB BLOOD ORDERABLES Carina l Result [facility] [place] [address] * (ABNORMAL) CBC with auto differential (10/27/2024 1:19 AM CDT) [facility] WBC 8.05 3.80 - 9.90 K/cumm Hgb 8.1(L) 13.0 - 17.5 g/dL [facility] Hct 25.9(L) 38.9 - 50.3 % [facility] Plt 443(H) 150 - 400 K/cumm [facility] MPV 8.8(L) 9.1 - 12.3 fL [facility] RBC 3.26(L) 4.30 - 5.80 M/cumm [facility] MCV 79.4(L) 81.3 - 96.4 fL [facility] MCH 24.8(L) 27.1 - 33.3 pg [facility] MCHC 31.3(L) 32.3 - 35.7 g/dL [facility] RDW CV 21.3(H) 11.1 - 14.9 % [facility] RDW SD 61.4(H) 35.7 - 48.1 fL [facility] NRBC abs 0.05(H) 0.00 - 0.01 K/cumm [facility] Blood 10/27/2024 1:19 AM CDT 10/27/2024 1:32 AM CDT Bossman Hernandez DO LAB BLOOD ORDERABLES Final Resul t [facility] [place] [address] * (ABNORMAL) Copper, serum (10/27/2024 1:19 AM CDT) Copper 148(H) 73 - 129 mcg/dL [facility] Comment: ADDITIONAL INFORMATION This test was developed and its performance characteristics determined by [facility] in a manner consistent with CLIA requirements. This test has not been cleared or approved by the U.S. Food and Drug Administration. Test Performed by: [facility] [address] [place] [address] [employer] Worker: Sue Celaya Ph.D.; CLIA# [id number] Blood 10/27/2024 1:19 AM CDT 10/27/2024 1:28 AM CDT Nina Andrew MD LAB BLOOD ORDERABLES Carina l Result Performing Organization Address City[facility]/ZIP Co de Phone Number NERY [facility] [place] [address] [place] [facility] * aPTT (10/27/2024 1:19 AM CDT) aPTT 31 28 - 38 sec Comment: Interpretive Data Heparin therapeutic range: 66.0 - 100.0 seconds. Range based on correlation with therapeutic heparin activity range of 0.3 - 0.7 Units/mL. Current interpretive data was last revised on 2023. Blood 10/27/2024 1:19 AM CDT 10/27/2024 1:58 AM CDT Bossman Hernandez DO LAB BLOOD ORDERABLES Final Resul t Performing Organization Address City[facility]/ZIP Co de Phone Number NERY [facility] [place] [employer] [place] [address] * (ABNORMAL) Protime-INR (10/27/2024 1:19 AM CDT) PT 14.4(H) 9.7 - 13.0 sec INR 1.33(H) 0.90 - 1.20 [facility] Comment: Interpretive data Oral anticoagulant therapeutic ranges: Venous thromboembolism prophylaxis or treatment: 2.0-3.0 CARDIOLOGY Standard range: 2.0-3.0 High-intensity range: 2.5-3.5 Refer to indication-specific guidelines for appropriate target ranges for prosthetic heart valve replacement. Current interpretive data was last revised on 2019. Blood 10/27/2024 1:19 AM CDT 10/27/2024 1:58 AM CDT Bossman Hernandez DO LAB BLOOD ORDERABLES Final Resul t Performing Organization Address City[facility] Co de Phone Number [facility] [place] [address] * Type and screen (10/27/2024 1:19 AM CDT) Wilfred, indirect Negative ABO Rh O Positive [facility] Blood 10/27/2024 1:19 AM CDT 10/27/2024 1:37 AM CDT Narrative [facility] - 10/27/2024 2:39 AM CDT Has the patient had Daratumumab or Isatuximab in the past 6 months?->Unknown Bossman Hernandez DO LAB BLOOD BANK TEST ORDERABLES F inal Result [facility] [place] [employer] [place] [address] * Uric acid (10/27/2024 1:19 AM CDT) Uric acid 3.6 3.0 - 8.0 mg/dL Blood 10/27/2024 1:19 AM CDT 10/27/2024 1:28 AM CDT Narrative [facility] - 10/27/2024 3:14 AM CDT Sunday and only. Morning draw. . Roxikamini Hernandez LAB BLOOD ORDERABLES Final Resul t Performing Organization Address [facility] de Phone Number [facility] [place] [address] * (ABNORMAL) Phosphorus (10/27/2024 1:19 AM CDT) Phosphorus, pl 2.1(L) 2.3 - 4.5 mg/dL Blood 10/27/2024 1:19 AM CDT 10/27/2024 1:28 AM CDT [facility] LAB BLOOD ORDERABLES Final Resul t Performing Organization Address [facility] [place] [address] * (ABNORMAL) Lactate dehydrogenase (LD) (10/27/2024 1:19 AM CDT) [facility] Signature Lactate dehydrogenase (LDH) 438(H) 100 - 250 Units/L Blood 10/27/2024 1:19 AM CDT 10/27/2024 1:28 AM CDT Narrative NERY [facility] - 10/27/2024 3:14 AM CDT Sunday and only. Morning draw. Roxikamini Hernandez LAB BLOOD ORDERABLES Final Resul t Performing Organization Address [facility] [place] [address] * Folate (10/27/2024 1:19 AM CDT) Folic acid 5.3 >=5.0 ng/mL Blood 10/27/2024 1:19 AM CDT 10/27/2024 1:28 AM CDT Nina Andrew MD LAB BLOOD ORDERABLES Carina l Result [facility] [place] [address] * (ABNORMAL) Vitamin B12 (10/27/2024 1:19 AM CDT) Pathologist [facility] Vitamin B12 >2,000(H) 230 - 1,250 pg/mL Blood 10/27/2024 1:19 AM CDT 10/27/2024 1:28 AM CDT Nina Andrew MD LAB BLOOD ORDERABLES Carina l Result Performing Organization Address [facility] Co de Phone Number [facility] [place] [address] * (ABNORMAL) Comprehensive metabolic panel (10/27/2024 1:19 AM CDT) [facility] Sodium 140 135 - 145 mmol/L Potassium, pl 5.1(H) 3.3 - 4.9 mmol/L [facility] Chloride 104 97 - 110 mmol/L [facility] CO2 22 22 - 32 mmol/L [facility] Anion gap 14 2 - 15 mmol/L [facility] BUN 19 6 - 25 mg/dL [facility] Creatinine 1.00 0.80 - 1.30 mg/dL [facility] Glucose 162 70 - 199 mg/dL [facility] Comment: Interpretive Data Fasting glucose >/= 126 [...] interpretive data was last revised 2022. Calcium 6.6(L) 8.5 - 10.3 mg/dL [facility] Bilirubin, total 0.3 0.1 - 1.2 mg/dL [facility] Protein, pl 6.5 6.5 - 8.5 g/dL [facility] Albumin 2.7(L) 3.5 - 5.0 g/dL [facility] Alk phos 503(H) 40 - 130 Units/L [facility] ALT 14 7 - 55 Units/L [facility] AST 44 10 - 50 Units/L [facility] Blood 10/27/2024 1:19 AM CDT 10/27/2024 1:28 AM CDT Bossman Hernandez DO LAB BLOOD ORDERABLES Final Resul t Performing Organization Address [facility] de Phone Number [facility] [place] [address] * POCT glucose (10/26/2024 8:01 PM CDT) Glucose, POC 157 70 - 199 mg/dL Blood 10/26/2024 8:01 PM CDT 10/26/2024 8:01 PM CDT Bossman Hernandez DO [facility] POCT ORDERABLES - DEVICE Fin al Result Performing Organization Address [facility] Co de Phone Number [facility] [place] [address] * POCT glucose (10/26/2024 5:45 PM CDT) Glucose, POC 136 70 - 199 mg/dL Blood 10/26/2024 5:45 PM CDT 10/26/2024 5:45 PM CDT Bossman Hernandez LAB POCT ORDERABLES - DEVICE Fin al Result Performing Organization Address [facility] Co de Phone Number [facility] [address] * Infection Prevention MRSA Only (Staphylococcus aureus) Culture Nasal (10/26/2024 4:05 PM CDT) Report Final Report: Negative Nasal 10/26/2024 4:05 PM CDT 10/26/2024 4:24 PM CDT Narrative [facility] 10/27/2024 6:00 PM CDT Testing performed by [facility] ([phone]). Nina Andrew MD LAB MICROBIOLOGY - GENERA L ORDERABLES Final Result Performing Organization Address City/[facility] [place] [address] * POCT glucose (10/26/2024 4:03 PM CDT) Glucose, POC 131 70 - 199 mg/dL Blood 10/26/2024 4:03 PM CDT 10/26/2024 4:03 PM CDT Bossman Hernandez DO LAB POCT ORDERABLES - DEVICE Fin al Result Performing Organization Address [facility] Co de Phone Number [facility] [place] [address] * POCT glucose (10/26/2024 11:09 AM CDT) Glucose, POC 129 70 - 199 mg/dL Blood 10/26/2024 11:0 9 AM CDT 10/26/2024 11:09 AM CDT Bossman Hernandez DO LAB POCT ORDERABLES - DEVICE Fin al Result Performing Organization Address [facility] Co de Phone Number [facility] [place] [address] * Carboxyhemoglobin, venous (10/26/2024 9:36 AM CDT) Carboxyhemoglob in, venous 1.3 0.0 - 2.9 % Blood 10/26/2024 9:36 AM CDT 10/26/2024 9:50 AM CDT Nina Andrew MD LAB BLOOD ORDERABLES Carina l Result Performing Organization Address City[facility]/ZIP Co de Phone Number [facility] [place] [address] * (ABNORMAL) Calcium, ionized (10/26/2024 9:36 AM CDT) Pathologist [facility] Calcium, Ionized 3.22(L) 4.50 - 5.10 mg/dL Blood 10/26/2024 9:36 AM CDT 10/26/2024 9:50 AM CDT Nina Andrew MD LAB BLOOD ORDERABLES Carina l Result Performing Organization Address City[facility] Co de Phone Number [facility] [place] [address] * Beta-hydroxybutyrate (10/26/2024 9:36 AM CDT) Pathologist [facility] Beta-Hydroxybut yrate 0.1 0.0 - 0.5 mmol/L Blood 10/26/2024 9:36 AM CDT 10/26/2024 9:50 AM CDT Nina Andrew MD LAB BLOOD ORDERABLES Carina l Result Performing Organization Address City[facility] Co de Phone Number [facility] [place] [address] * Vitamin B1 (10/26/2024 9:36 AM CDT) Pathologist [facility] Thiamine (Vit B1) 136 70 - 180 nmol/L [place] [facility] Comment: ADDITIONAL INFORMATION This test was developed and its performance characteristics determined by [facility] in a manner consistent with CLIA requirements. This test has not been cleared or approved by the U.S. Food and Drug Administration. Test Performed by: [facility] [address] [place] [address] [employer] Worker: Sue Celaya Ph.D.; CLIA# [id number] Blood 10/26/2024 9:36 AM CDT 10/26/2024 11:08 AM CDT Nina Andrew MD LAB BLOOD ORDERABLES Carina l Result Performing Organization Address [facility] de Phone Number [facility] [place] [address] [place] [facility] * (ABNORMAL) Blood gas, venous (10/26/2024 9:36 AM CDT) pH, Venous 7.40 7.32 - 7.43 PCO2, Venous 36(L) 40 - 50 mmHg [facility] PO2, Venous 47 mmHg [facility] Comment: Interpretive Data No Reference Range Established Current Interpretive Data was last revised on 2017. HCO3 Venous, Calculated 23 20 - 30 mmol/L [facility] BE, venous -2 mmol/L [facility] Comment: Interpretive Data No Reference Range Established Current Interpretive Data was last revised on 2017. Blood 10/26/2024 9:36 AM CDT 10/26/2024 9:50 AM CDT Nina Andrew MD LAB BLOOD ORDERABLES Carina l Result Performing Organization Address [facility] Co de Phone Number [facility] [place] [address] * Ethanol (10/26/2024 9:36 AM CDT) Ethanol <10 <=10 mg/dL Comment: Interpretive Data Legal limit of intoxication > or = 80 mg/dL Levels > or = 400 mg/dL are potentially TOXIC. Current interpretive data was last revised on 2018. Blood 10/26/2024 9:36 AM CDT 10/26/2024 9:50 AM CDT Nina Andrew MD LAB BLOOD ORDERABLES Carina l Result Performing Organization Address [facility] de Phone Number [facility] [place] [address] * Salicylate level (10/26/2024 9:36 AM CDT) Salicylate <9.0 <=9.0 mg/dL Comment: Interpretive Data Toxic: 30 mg/dL or greater. Current interpretive data was last revised 2023. Blood 10/26/2024 9:36 AM CDT 10/26/2024 9:50 AM CDT Nina Andrew MD LAB BLOOD ORDERABLES Carina l Result Performing Organization Address [facility] de Phone Number [facility] [place] [address] * POCT glucose (10/26/2024 8:07 AM CDT) Glucose, POC 106 70 - 199 mg/dL Blood 10/26/2024 8:0 7 AM CDT 10/26/2024 8:07 AM CDT Bossman Hernandez DO LAB POCT ORDERABLES - DEVICE Fin al Result Performing Organization Address [facility] Co de Phone Number [facility] [place] [address] * aPTT (10/26/2024 3:19 AM CDT) aPTT 31 28 - 38 sec Comment: Interpretive Data Heparin therapeutic range: 66.0 - 100.0 seconds. Range based on correlation with therapeutic heparin activity range of 0.3 - 0.7 Units/mL. Current interpretive data was last revised on 2023. Blood 10/26/2024 3:19 AM CDT 10/26/2024 3:28 AM CDT Press[employer] DO LAB BLOOD ORDERABLES Final Resul t Performing Organization Address [facility] de Phone Number [facility] [place] [address] * (ABNORMAL) Protime-INR (10/26/2024 3:19 AM CDT) Pathologist [facility] PT 13.4(H) 9.7 - 13.0 sec INR 1.24(H) 0.90 - 1.20 [facility] Comment: Interpretive data Oral anticoagulant therapeutic ranges: Venous thromboembolism prophylaxis or treatment: 2.0-3.0 CARDIOLOGY Standard range: 2.0-3.0 High-intensity range: 2.5-3.5 Refer to indication-specific guidelines for appropriate target ranges for prosthetic heart valve replacement. Current interpretive data was last revised on 2019. Blood 10/26/2024 3:19 AM CDT 10/26/2024 3:28 AM CDT [employer] DO LAB BLOOD ORDERABLES Final Resul t Performing Organization Address [facility] de Phone Number [facility] [place] [address] * (ABNORMAL) Differential, auto (10/26/2024 2:30 AM CDT) Neutrophil abs 7.64(H) 1.50 - 6.50 K/cumm Imm gran abs 0.23(H) 0.00 - 0.10 K/cumm [facility] Lymphocyte abs 1.05 0.80 - 3.30 K/cumm [facility] Monocyte abs 0.60 0.20 - 0.80 K/cumm [facility] Eosinophil abs 0.03 0.00 - 0.50 K/cumm [facility] Basophil abs 0.04 0.00 - 0.10 K/cumm [facility] Neutrophil pct 79.7 % [facility] Comment: Interpretive Data Percent cell count reference ranges are not reported, since discordance with absolute values may lead to misinterpretation of CBC data. Current Interpretive Data was last revised on 2017. Imm gran pct 2.4 % [facility] Comment: Interpretive Data Percent cell count reference ranges are not reported, since discordance with absolute values may lead to misinterpretation of CBC data. Current Interpretive Data was last revised on 2017. Lymphocyte pct 10.9 % [facility] Comment: Interpretive Data Percent cell count reference ranges are not reported, since discordance with absolute values may lead to misinterpretation of CBC data. Current Interpretive Data was last revised on 2017. Monocyte pct 6.3 % [facility] Comment: Interpretive Data Percent cell count reference ranges are not reported, since discordance with absolute values may lead to misinterpretation of CBC data. Current Interpretive Data was last revised on 2017. Eosinophil pct 0.3 % [facility] Comment: Interpretive Data Percent cell count reference ranges are not reported, since discordance with absolute values may lead to misinterpretation of CBC data. Current Interpretive Data was last revised on 2017. Basophil pct 0.4 % [facility] Comment: Interpretive Data Percent cell count reference ranges are not reported, since discordance with absolute values may lead to misinterpretation of CBC data. Current Interpretive Data was last revised on 2017. Blood 10/26/2024 2:30 AM CDT 10/26/2024 2:06 AM CDT us Bossman Hernandez DO LAB BLOOD ORDERABLES Final Resul t [facility] [place] [address] * (ABNORMAL) CBC with auto differential (10/26/2024 2:30 AM CDT) Pathologist [facility] WBC 9.59 3.80 - 9.90 K/cumm Hgb 9.1(L) 13.0 - 17.5 g/dL [facility] Hct 29.2(L) 38.9 - 50.3 % [facility] Plt 460(H) 150 - 400 K/cumm [facility] MPV 8.9(L) 9.1 - 12.3 fL [facility] RBC 3.61(L) 4.30 - 5.80 M/cumm [facility] MCV 80.9(L) 81.3 - 96.4 fL [facility] MCH 25.2(L) 27.1 - 33.3 pg [facility] MCHC 31.2(L) 32.3 - 35.7 g/dL [facility] RDW CV 21.6(H) 11.1 - 14.9 % [facility] RDW SD 62.4(H) 35.7 - 48.1 fL [facility] NRBC abs 0.07(H) 0.00 - 0.01 K/cumm [facility] Blood 10/26/2024 2:30 AM CDT 10/26/2024 2:06 AM CDT us Bossman Hernandez DO LAB BLOOD ORDERABLES Final Resul t NERY [facility] [place] [address] * (ABNORMAL) Lactate (10/26/2024 1:53 AM CDT) [facility] Lactate 5.7(C) 0.7 - 2.0 mmol/L Blood 10/26/2024 1:53 AM CDT 10/26/2024 2:06 AM CDT us Bossman Hernandez DO LAB BLOOD ORDERABLES Final Resul t Performing Organization Address [facility] Co de Phone Number NERY [facility] One [facility] [place] [address] * eGFR (10/26/2024 1:53 AM CDT) eGFR 90 >=60 mL/min/1. 73 m2 Comment: Interpretive Data [...] interpretive data was last reviewed 2021. Blood 10/26/2024 1:53 AM CDT 10/26/2024 2:06 AM CDT Bossman Hernandez DO LAB BLOOD ORDERABLES Final Resul t Performing Organization Address [facility] Co de Phone Number NERY HUSAIN [facility] [place] [address] * Critical Result Callback Chemistry (10/26/2024 1:53 AM CDT) Date Notified [id number] Time Notified 234 NERY [facility] TestName Lactate NERY HUSAIN Called/Read Back Melissa HUSAIN Credentials JP HUSAIN Called By KYARA HUSAIN Blood 10/26/2024 1:53 AM CDT 10/26/2024 2:06 AM CDT Roxikamini Hernandez LAB BLOOD ORDERABLES Final Resul t Performing Organization Address [facility] de Phone Number [facility] [place] [address] * Uric acid (10/26/2024 1:53 AM CDT) Pathologist [facility] Uric acid 3.5 3.0 - 8.0 mg/dL Blood 10/26/2024 1:53 AM CDT 10/26/2024 2:06 AM CDT Narrative NERY [facility] - 10/26/2024 2:34 AM CDT Sunday and only. Morning draw. . Bossman Hernandez LAB BLOOD ORDERABLES Final Resul t Performing Organization Address [facility] Phone Number [facility] [place] [address] * (ABNORMAL) Phosphorus (10/26/2024 1:53 AM CDT) Pathologist [facility] Phosphorus, pl 1.3(L) 2.3 - 4.5 mg/dL Blood 10/26/2024 1:53 AM CDT 10/26/2024 2:06 AM CDT [facility] Hernandez LAB BLOOD ORDERABLES Final Resul t Performing Organization Address [facility] de Phone Number [facility] [place] [address] * (ABNORMAL) Lactate dehydrogenase (LD) (10/26/2024 1:53 AM CDT) Pathologist [facility] Lactate dehydrogenase (LDH) 585(H) 100 - 250 Units/L Blood 10/26/2024 1:53 AM CDT 10/26/2024 2:06 AM CDT Narrative [facility] - 10/26/2024 2:34 AM CDT Sunday and only. Morning draw. Telephone report made to: Melissa Gonzales RN on 10/26/2024 02:24:28 CDT by SI . Roxijennikamini Hernandez DO LAB BLOOD ORDERABLES Final Resul t [facility] [place] [address] * (ABNORMAL) Comprehensive metabolic panel (10/26/2024 1:53 AM CDT) [facility] Signature Sodium 141 135 - 145 mmol/L Potassium, pl 4.2 3.3 - 4.9 mmol/L [facility] Chloride 103 97 - 110 mmol/L [facility] CO2 23 22 - 32 mmol/L [facility] Anion gap 15 2 - 15 mmol/L [facility] BUN 15 6 - 25 mg/dL [facility] Creatinine 0.80 0.80 - 1.30 mg/dL [facility] Glucose 200(H) 70 - 199 mg/dL [facility] Comment: Interpretive Data Fasting glucose >/= 126 [...] interpretive data was last revised 2022. Calcium 6.6(L) 8.5 - 10.3 mg/dL [facility] Bilirubin, total 0.3 0.1 - 1.2 mg/dL [facility] Protein, pl 6.8 6.5 - 8.5 g/dL [facility] Albumin 3.1(L) 3.5 - 5.0 g/dL [facility] Alk phos 515(H) 40 - 130 Units/L [facility] ALT 20 7 - 55 Units/L [facility] AST 91(H) 10 - 50 Units/L [facility] Blood 10/26/2024 1:53 AM CDT 10/26/2024 2:06 AM CDT Bossman Hernandez DO LAB BLOOD ORDERABLES Final Resul t Performing Organization Address [facility] Co de Phone Number [facility] [place] [address] * (ABNORMAL) Lactate (10/25/2024 9:40 PM CDT) Lactate 6.3(C) 0.7 - 2.0 mmol/L Blood 10/25/2024 9:40 PM CDT 10/25/2024 9:50 PM CDT Roxikamini Hernandez DO LAB BLOOD ORDERABLES Final Resul t Performing Organization Address City/[facility] de Phone Number [facility] [place] [address] * eGFR (10/25/2024 9:40 PM CDT) eGFR 89 >=60 mL/min/1. 73 m2 Comment: Interpretive Data [...] interpretive data was last reviewed 2021. Blood 10/25/2024 9:40 PM CDT 10/25/2024 9:50 PM CDT us Bossman Hernandez DO LAB BLOOD ORDERABLES Final Resul t [facility] [place] [address] * (ABNORMAL) Differential, auto (10/25/2024 9:40 PM CDT) Neutrophil abs 8.38(H) 1.50 - 6.50 K/cumm Imm gran abs 0.27(H) 0.00 - 0.10 K/cumm [facility] Lymphocyte abs 1.34 0.80 - 3.30 K/cumm [facility] Monocyte abs 1.04(H) 0.20 - 0.80 K/cumm [facility] Eosinophil abs 0.08 0.00 - 0.50 K/cumm [facility] Basophil abs 0.06 0.00 - 0.10 K/cumm [facility] Neutrophil pct 75.1 % [facility] Comment: Interpretive Data Percent cell count reference ranges are not reported, since discordance with absolute values may lead to misinterpretation of CBC data. Current Interpretive Data was last revised on 2017. Imm gran pct 2.4 % [facility] Comment: Interpretive Data Percent cell count reference ranges are not reported, since discordance with absolute values may lead to misinterpretation of CBC data. Current Interpretive Data was last revised on 2017. Lymphocyte pct 12.0 % [facility] Comment: Interpretive Data Percent cell count reference ranges are not reported, since discordance with absolute values may lead to misinterpretation of CBC data. Current Interpretive Data was last revised on 2017. Monocyte pct 9.3 % [facility] Comment: Interpretive Data Percent cell count reference ranges are not reported, since discordance with absolute values may lead to misinterpretation of CBC data. Current Interpretive Data was last revised on 2017. Eosinophil pct 0.7 % [facility] Comment: Interpretive Data Percent cell count reference ranges are not reported, since discordance with absolute values may lead to misinterpretation of CBC data. Current Interpretive Data was last revised on 2017. Basophil pct 0.5 % [facility] Comment: Interpretive Data Percent cell count reference ranges are not reported, since discordance with absolute values may lead to misinterpretation of CBC data. Current Interpretive Data was last revised on 2017. Blood 10/25/2024 9:40 PM CDT 10/25/2024 9:50 PM CDT [facility] LAB BLOOD ORDERABLES Final Resul t Performing Organization Address [facility] Co de Phone Number [facility] [place] [address] * Critical Result Callback Chemistry (10/25/2024 9:40 PM CDT) Date Notified 20241025 Time Notified 2220 [facility] TestName [facility]ate [facility] Called/Read Back Melissa Gonzales [facility] Credentials RN [facility] Called By SB [facility] Blood 10/25/2024 9:40 PM CDT 10/25/2024 9:50 PM CDT [facility] LAB BLOOD ORDERABLES Final Resul t Performing Organization Address City/[facility]/ZIP Co de Phone Number [facility] [place] [address] * (ABNORMAL) CBC with auto differential (10/25/2024 9:40 PM CDT) WBC 11.17(H) 3.80 - 9.90 K/cumm Hgb 9.4(L) 13.0 - 17.5 g/dL [facility] Hct 30.8(L) 38.9 - 50.3 % [facility] Plt 505(H) 150 - 400 K/cumm [facility] MPV 8.9(L) 9.1 - 12.3 fL [facility] RBC 3.80(L) 4.30 - 5.80 M/cumm [facility] MCV 81.1(L) 81.3 - 96.4 fL [facility] MCH 24.7(L) 27.1 - 33.3 pg [facility] MCHC 30.5(L) 32.3 - 35.7 g/dL [facility] RDW CV 21.5(H) 11.1 - 14.9 % [facility] RDW SD 62.2(H) 35.7 - 48.1 fL [facility] NRBC abs 0.11(H) 0.00 - 0.01 K/cumm [facility] Blood 10/25/2024 9:40 PM CDT 10/25/2024 9:50 PM CDT Bossman Hernandez DO LAB BLOOD ORDERABLES Final Resul t Performing Organization Address City[facility]/ZIP Co de Phone Number [facility] [place] [address] * Type and screen (10/25/2024 9:40 PM CDT) ABO Rh O Positive Wilfred, indirect Negative [facility] Blood 10/25/2024 9:40 PM CDT 10/25/2024 9:59 PM CDT Narrative [facility] - 10/25/2024 10:48 PM CDT Has the patient had Daratumumab or Isatuximab in the past 6 months?->Unknown Bossman Hernandez DO LAB BLOOD BANK TEST ORDERABLES F inal Result [facility] [place] [employer] [place] [address] * (ABNORMAL) CRP (acute phase) (10/25/2024 9:40 PM CDT) CRP 101.6(H) <=10.0 mg/L Blood 10/25/2024 9:40 PM CDT 10/25/2024 11:39 PM CDT Roxijennikamini Hernandez DO LAB BLOOD ORDERABLES Final Resul t Performing Organization Address [facility] de Phone Number [facility] [place] [address] * (ABNORMAL) Phosphorus (10/25/2024 9:40 PM CDT) Phosphorus, pl 1.4(L) 2.3 - 4.5 mg/dL Blood 10/25/2024 9:40 PM CDT 10/25/2024 9:50 PM CDT Bossman Hernandez DO LAB BLOOD ORDERABLES Final Resul t Performing Organization Address [facility] de Phone Number [facility] [place] [address] * Magnesium (10/25/2024 9:40 PM CDT) Magnesium 1.8 1.4 - 2.5 mg/dL Blood 10/25/2024 9:40 PM CDT 10/25/2024 9:50 PM CDT Roxijennikamini Hernandez LAB BLOOD ORDERABLES Final Resul t Performing Organization Address [facility] [place] [address] * (ABNORMAL) Lipid panel (10/25/2024 9:40 PM CDT) Cholesterol 141 30 - 199 mg/dL Comment: Interpretive Data Ages < or = 19 years Acceptable: <170 mg/dL Borderline high: 170-199 mg/dL High: >or= 200 mg/dL Ages > or = 20 years Desirable: <200 mg/dL Borderline high: 200-239 mg/dL High: >or= 240 mg/dL Literature References: 1. Expert Panel on Integrated Guidelines for Cardiovascular Health and Risk Reduction in Children and Adolescents. Pediatrics 2011;128:S213 2. NCEP Expert Panel. Circulation 2004;110:227 Current Interpretive Data was last revised on 2018. Triglycerides 254(H) <=149 mg/dL [facility] Comment: Interpretive Data Ages < or = 9 years Acceptable: <75 mg/dL Borderline high: 75-99 mg/dL High: >or= 100 mg/dL Ages 10 to 20 years Acceptable: <90 mg/dL Borderline high: 90-129 mg/dL High: >or= 130 mg/dL Ages > or = 20 years Desirable: <150 mg/dL Borderline high: 150-199 mg/dL High: 200-499 mg/dL Very high: >or= 499 mg/dL Literature References: 1. Expert Panel on Integrated Guidelines for Cardiovascular Health and Risk Reduction in Children and Adolescents. Pediatrics 2011;128:S213 2. NCEP Expert Panel. Circulation 2004;110:227 Current Interpretive Data was last revised on 2018. HDL 45 >=40 mg/dL [facility] Comment: Interpretive Data Ages < or = 19 years Acceptable: >45 mg/dL Borderline low: 40-45 mg/dL Low: <40 mg/dL Ages > or = 20 years Desirable: >or= 60 mg/dL Low: <40 mg/dL Literature References: 1. Expert Panel on Integrated Guidelines for Cardiovascular Health and Risk Reduction in Children and Adolescents. Pediatrics 2011;128:S213 2. NCEP Expert Panel. Circulation 2004;110:227 Current Interpretive Data was last revised on 2018. LDL, calculated 56 <=129 mg/dL [facility] Comment: Interpretive Data Ages < or = 19 years Acceptable: <110 mg/dL Borderline high: 110-129 mg/dL High: >or= 130 mg/dL Ages > or = 20 years Optimal: <100 mg/dL Near optimal: 100-129 mg/dL Borderline high: 130-159 mg/dL High: >160 mg/dL Calculated using the Monae LDL-C estimating equation. This equation was implemented on 2024. Prior to this date LDL-C was estimated using the Friedewald equation. Literature References: 1. Expert Panel on Integrated Guidelines for Cardiovascular Health and Risk Reduction in Children and Adolescents. Pediatrics 2011;128:S213 2. NCEP Expert Panel. Circulation 2004;110:227 3. Dov M et al. BELA Cardiol. 2020 November 20;5(5):540-548. doi: 10.1001/jamacardio.2020.0013 Current Interpretive Data was last revised on 2024. Non-HDL Cholesterol 96 mg/dL [facility] Comment: Interpretive Data Ages < or = 19 years Acceptable: <120 mg/dL Borderline high: 120-144 mg/dL High: >145 mg/dL Ages > or = 20 years When triglycerides are >200 mg/dL, Non-HDL cholesterol is a secondary target of therapy with treatment goals that are 30 mg/dL greater than the LDL cholesterol target. Literature References: 1. Expert Panel on Integrated Guidelines for Cardiovascular Health and Risk Reduction in Children and Adolescents. Pediatrics 2011;128:S213 2. NCEP Expert Panel. Circulation 2004;110:227 Current Interpretive Data was last revised on 2018. Chol/HDL ratio 3 [facility] Blood 10/25/2024 9:40 PM CDT 10/25/2024 9:50 PM CDT Narrative [facility] - 10/26/2024 12:41 AM CDT Reflex us Bossman Hernandez DO LAB BLOOD ORDERABLES Final Resul t [facility] [place] [address] * (ABNORMAL) Comprehensive metabolic panel (10/25/2024 9:40 PM CDT) Sodium 140 135 - 145 mmol/L Potassium, pl 4.1 3.3 - 4.9 mmol/L [facility] Chloride 101 97 - 110 mmol/L [facility] CO2 22 22 - 32 mmol/L [facility] Anion gap 17(H) 2 - 15 mmol/L [facility] BUN 15 6 - 25 mg/dL [facility] Creatinine 0.82 0.80 - 1.30 mg/dL [facility] Glucose 142 70 - 199 mg/dL [facility] Comment: Interpretive Data Fasting glucose >/= 126 [...] interpretive data was last revised 2022. Calcium 6.8(L) 8.5 - 10.3 mg/dL [facility] Bilirubin, total 0.3 0.1 - 1.2 mg/dL [facility] Protein, pl 7.0 6.5 - 8.5 g/dL [facility] Albumin 3.1(L) 3.5 - 5.0 g/dL [facility] Alk phos 500(H) 40 - 130 Units/L [facility] ALT 19 7 - 55 Units/L [facility] AST 91(H) 10 - 50 Units/L [facility] Blood 10/25/2024 9:40 PM CDT 10/25/2024 9:50 PM CDT Bossman Hernandez DO LAB BLOOD ORDERABLES Final Resul t [facility] [place] [address] * CT Abdomen Pelvis WO Contrast (10/25/2024 9:20 PM CDT) Anatomical Region Laterality Modality Body N/A Computed Tomogra phy 10/25/2024 9:33 PM CDT Impressions 10/26/2024 8:09 AM CDT 1. No acute process within the abdomen or pelvis. 2. Stable findings of diffuse osseous metastatic disease and retroperitoneal lymphadenopathy. 3. 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 4. Unchanged findings of volume overload including moderate bilateral pleural effusions, mesenteric edema and anasarca. Dictated by: Kalin Matthew MD The radiology attending physician has personally reviewed this study, and had reviewed and/or edited this written report and agrees with it. Electronically signed by: Maria A Rome M.D. Narrative 10/26/2024 8:09 AM CDT EXAMINATION: Computed tomography of the abdomen and pelvis without intravenous contrast HISTORY: 79-year-old with metastatic prostate cancer, fever and elevated lactate TECHNIQUE: Transaxial computed tomographic images of the abdomen and pelvis were obtained without intravenous contrast according to the standard protocol. COMPARISON: PET/CT 10/23/2024. FINDINGS: Motion degraded exam. Imaged heart size is unchanged. Trace pericardial effusion. Stable moderate bilateral pleural effusions with associated atelectasis. No focal liver lesion. No biliary dilatation. Axial the spleen, adrenal glands and pancreas are normal. Unchanged chronic obstructive left hydroureteronephrosis with transition point in the upper abdomen with associated atrophy of the left kidney. The right kidney is normal without hydronephrosis. The urinary bladder is normal. No free fluid or pneumoperitoneum. The prostate is absent. Unchanged extensive retroperitoneal and left iliac chain lymphadenopathy as seen on PET/CT 10/23/2024. Enteric contrast is seen throughout the colon. The bowel is normal caliber without evidence of obstruction, with improvement in previously seen mildly distended fluid-filled loops of small bowel. There is persistent rectal wall thickening which may relate to chronic radiation proctitis. There is persistent mesenteric edema and presacral stranding. No organized drainable fluid collections. Abdominal aorta is normal in course and caliber. Unchanged severe diffuse osseous metastatic disease with unchanged compression deformities of the T9-T12 vertebral bodies. Extensive body wall edema is noted again. Procedure Note Maria A Rome MD - 10/26/2024 EXAMINATION: Computed tomography of the abdomen and pelvis without intravenous contrast HISTORY: 79-year-old with metastatic prostate cancer, fever and elevated lactate TECHNIQUE: Transaxial computed tomographic images of the abdomen and pelvis were obtained without intravenous contrast according to the standard protocol. COMPARISON: PET/CT 10/23/2024. FINDINGS: Motion degraded exam. Imaged heart size is unchanged. Trace pericardial effusion. Stable moderate bilateral pleural effusions with associated atelectasis. No focal liver lesion. No biliary dilatation. Axial the spleen, adrenal glands and pancreas are normal. Unchanged chronic obstructive left hydroureteronephrosis with transition point in the upper abdomen with associated atrophy of the left kidney. The right kidney is normal without hydronephrosis. The urinary bladder is normal. No free fluid or pneumoperitoneum. The prostate is absent. Unchanged extensive retroperitoneal and left iliac chain lymphadenopathy as seen on PET/CT 10/23/2024. Enteric contrast is seen throughout the colon. The bowel is normal caliber without evidence of obstruction, with improvement in previously seen mildly distended fluid-filled loops of small bowel. There is persistent rectal wall thickening which may relate to chronic radiation proctitis. There is persistent mesenteric edema and presacral stranding. No organized drainable fluid collections. Abdominal aorta is normal in course and caliber. Unchanged severe diffuse osseous metastatic disease with unchanged compression deformities of the T9-T12 vertebral bodies. Extensive body wall edema is noted again. IMPRESSION: 1. No acute process within the abdomen or pelvis. 2. Stable findings of diffuse osseous metastatic disease and retroperitoneal lymphadenopathy. 3. 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 4. Unchanged findings of volume overload including moderate bilateral pleural effusions, mesenteric edema and anasarca. Dictated by: Kalin Matthew MD The radiology attending physician has personally reviewed this study, and had reviewed and/or edited this written report and agrees with it. Electronically signed by: Maria A Rome M.D. Bossman Hernandez DO IMG CT PROCEDURES Final Result * POCT glucose (10/25/2024 7:41 PM CDT) [facility] Signature Glucose, POC 116 70 - 199 mg/dL Blood 10/25/2024 7:41 PM CDT 10/25/2024 7:41 PM CDT us Devon Carlin MD LAB POCT ORDERABLES - DE VICE Final Result [facility] [place] [address] * POCT glucose (10/25/2024 4:47 PM CDT) Glucose, POC 100 70 - 199 mg/dL Blood 10/25/2024 4:47 PM CDT 10/25/2024 4:47 PM CDT Devon Carlin MD LAB POCT ORDERABLES - DE VICE Final Result Performing Organization Address [facility]/ZIP Co de Phone Number [facility] [place] [address] * Critical Result Callback Chemistry (10/25/2024 4:12 PM CDT) Pathologist [facility] Date Notified 20241025 Time Notified 1625 NERY HUSAIN TestName Lactate Whole Blood NERY HUSAIN Called/Read Back Jazmín GABRIEL [facility] Credentials PA NERY HUSAIN Called By TP NERY HUSAIN Blood 10/25/2024 4:12 PM CDT 10/25/2024 4:20 PM CDT Jazmín CONTI LAB BLOOD ORDERABLES Carina l Result Performing Organization Address [facility] Co de Phone Number [facility] [place] [address] * (ABNORMAL) Lactate, whole blood (10/25/2024 4:12 PM CDT) Pathologist [facility] Lactate, bld 5.6(C) 0.7 - 2.0 mmol/L Blood 10/25/2024 4:12 PM CDT 10/25/2024 4:20 PM CDT Narrative NERY HUSAIN - 10/25/2024 4:23 PM CDT Draw after IVF completed Jazmín CONTI LAB BLOOD ORDERABLES Carina l Result [facility] [place] [address] * (ABNORMAL) Sepsis Lactate w/ Reflex (10/25/2024 2:28 PM CDT) Sepsis Lactate 5.6(C) 0.7 - 2.0 mmol/L Blood 10/25/2024 2:28 PM CDT 10/25/2024 2:34 PM CDT Matthew Santiago MD LAB BLOOD ORDERABLES Final Res ult Performing Organization Address [facility] Co de Phone Number [facility] [place] [address] * Critical Result Callback Chemistry (10/25/2024 2:28 PM CDT) Date Notified 20241025 Time Notified 1443 NERY [facility] TestName Lactate Whole Blood NERY [facility] Called/Read Back Jazmín HUSAIN Credentials PA NERY [facility] Called By TP NERY [facility] Blood 10/25/2024 2:28 PM CDT 10/25/2024 2:34 PM CDT Jazmín CONTI LAB BLOOD ORDERABLES Carina l Result Performing Organization Address [facility] Co de Phone Number [facility] [place] [address] * Critical Result Callback Chemistry (10/25/2024 2:28 PM CDT) Date Notified 20241025 Time Notified 1443 NERY HUSAIN TestName Sepsis Lactate [facility]ARIELNER [facility] Called/Read Back Jazmín HUSAIN Credentials PA NERY HUSAIN Called By TP NERY [facility] Blood 10/25/2024 2:28 PM CDT 10/25/2024 2:34 PM CDT Matthew Santiago MD LAB BLOOD ORDERABLES Final Res ult Performing Organization Address [facility] Co de Phone Number [facility] [place] [address] * (ABNORMAL) Lactate, whole blood (10/25/2024 2:28 PM CDT) Lactate, bld 5.2(C) 0.7 - 2.0 mmol/L Blood 10/25/2024 2:28 PM CDT 10/25/2024 2:34 PM CDT Narrative NERY [facility] - 10/25/2024 2:39 PM CDT After IVF is completed - per MTA request Jazmín CONTI LAB BLOOD ORDERABLES Carina l Result Performing Organization Address [facility] Co de Phone Number [facility] [place] [address] * XR Chest 1 Vw Portable (10/25/2024 11:41 AM CDT) Anatomical Region Laterality Modality Body, Chest N/A Computed Radiogr aphy 10/25/2024 12:1 3 PM CDT Impressions 10/25/2024 12:15 PM CDT Single frontal radiograph of the chest is submitted for interpretation with comparison to PET/CT from 10/23/2024. Moderate bilateral layering pleural effusions with associated atelectasis. No pulmonary edema. No pneumonia. No pulmonary mass. The cardiac mediastinal silhouette is within normal limits. Dictated by: Mark Caruso M.D. The radiology attending physician has personally reviewed this study, and had reviewed and/or edited this written report and agrees with it. Electronically signed by: Serena Jackson M.D. Narrative 10/25/2024 12:15 PM CDT EXAMINATION: 1 view chest radiograph Procedure Note Serena Jackson MD - 10/25/2024 EXAMINATION: 1 view chest radiograph IMPRESSION: Single frontal radiograph of the chest is submitted for interpretation with comparison to PET/CT from 10/23/2024. Moderate bilateral layering pleural effusions with associated atelectasis. No pulmonary edema. No pneumonia. No pulmonary mass. The cardiac mediastinal silhouette is within normal limits. Dictated by: Mark Caruso M.D. The radiology attending physician has personally reviewed this study, and had reviewed and/or edited this written report and agrees with it. Electronically signed by: Serena Jackson M.D. Matthew Santiago MD IMG XR PROCEDURES Final Result * ECG 12-LEAD (10/25/2024 11:38 AM CDT) Narrative [facility] - 10/25/2024 11:38 AM CDT Herbie Moses MD 10/25/2024 11:39 AM ECG 12 lead Date/Time: 10/25/2024 11:38 AM Performed by: Herbie Moses MD Authorized by: Matthew Santiago MD Comments: Electrocardiogram from 11:33 a.m. manifest normal sinus rhythm at a rate of 82; normal UT and QRS interval with a prolonged QTC interval 0.5-8; normal P, R, and T-wave axis; no evidence of atrial enlargement or ventricular hypertrophy; nonspecific ST segment changes and T-wave inversions primarily in precordial leads V1 and V2 and flattening in limb lead 3 Procedure Note Herbie Moses MD - 10/25/2024 11:38 AM CDT Procedure ECG 12 lead Date/Time: 10/25/2024 11:38 AM Performed by: Herbie Moses MD Authorized by: Matthew Santiago MD Comments: Electrocardiogram from 11:33 a.m. manifest normal sinus rhythm at arate of 82; normal UT and QRS interval with a prolonged QTC interval0.5-8; normal P, R, and T-wave axis; no evidence of atrial enlargement orventricular hypertrophy; nonspecific ST segment changes and T-waveinversions primarily in precordial leads V1 and V2 and flattening in limblead 3 Herbie Moses MD 10/25/24 [id number] Matthew Santiago MD ECG ORDERABLES Final Result Performing Organization Address [facility]/ZIP Co de Phone Number [facility] * (ABNORMAL) Urinalysis reflex to microscopic and culture Urine (10/25/2024 11:33 AM CDT) Color, ur Straw Yellow Clarity, ur Clear Clear [facility] Specific gravity, ur 1.020 1.003 - 1.030 [facility] pH, urine 7.5 [facility] Comment: Interpretive Data U rine pH is affected by diet, medications, systemic acid-base disturbances, and renal tubular function. pH may affect urinary stone formation. For example, urine pH below 6.0 may help reduce the tendency for calcium phosphate stones and pH greater than 6.0 may reduce the tendency for uric acid stone formation. Source: [facility] Current Interpretive Data was last revised on 2017 Protein, ur ql 1+(A) Negative [facility] Glucose, ur ql Negative Negative [facility] Ketones, ur Negative Negative [facility] Bilirubin, ur Negative Negative [facility] Blood, ur Negative Negative [facility] Urobilinogen, ur 4.0(A) <2.0 mg/dL [facility] Nitrite, ur Negative Negative [facility] Leukocyte esterase, ur Negative Negative [facility] UA reflex comment Reflex to microscopic UA will be performed. [facility] Urine 10/25/2024 11:3 3 AM CDT 10/25/2024 11:38 AM CDT Matthew Santiago MD LAB MICROBIOLOGY - GENERAL ORD ERABLES Final Result [facility] [place] [address] * (ABNORMAL) Urinalysis, microscopic only (10/25/2024 11:33 AM CDT) WBC, ur 0-5 0 - 5 /HPF RBC, ur 0-2 0 - 2 /HPF [facility] Yeast, ur Trace(A) [facility] Culture Reflex Comment Reflex conditions for urine culture (WBC >10) not met. [facility] Urine 10/25/2024 11:3 3 AM CDT 10/25/2024 11:38 AM CDT Matthew Santiago MD LAB URINE ORDERABLES Final Res ult [facility] [place] [address] * Respiratory pathogen panel Nasopharyngeal (10/25/2024 11:27 AM CDT) Pathologist [facility] Influenza A RNA Not Detected Not Detected Influenza B RNA Not Detected Not Detected [facility] RSV RNA Not Detected Not Detected [facility] COVID-19 RNA Not Detected Not Detected [facility] Coronavirus 229E RNA Not Detected Not Detected [facility] Coronavirus HKU1 RNA Not Detected Not Detected [facility] Coronavirus NL63 RNA Not Detected Not Detected [facility] Coronavirus OC43 RNA Not Detected Not Detected [facility] Adenovirus DNA Not Detected Not Detected [facility] Metapneumovirus RNA Not Detected Not Detected [facility] Rhinovirus/Enterov irus RNA Not Detected Not Detected [facility] Parainfluenza 1 RNA Not Detected Not Detected [facility] Parainfluenza 2 RNA Not Detected Not Detected [facility] Parainfluenza 3 RNA Not Detected Not Detected [facility] Parainfluenza 4 RNA Not Detected Not Detected [facility] B. pertussis DNA Not Detected Not Detected [facility] B. parapertussis DNA Not Detected Not Detected [facility] C. pneumoniae DNA Not Detected Not Detected [facility] M. pneumoniae DNA Not Detected Not Detected [facility] Nasopharyngeal 10/25/2024 11 :27 AM CDT 10/25/2024 12:19 PM CDT Narrative [facility] - 10/25/2024 1:10 PM CDT Is the Patient experiencing symptoms consistent with COVID?->No Surveillance testing for transplant patient?->No Interpretive Data The KanmuArray Respiratory Panel (RP2.1) assay is a multiplexed real-time PCR based nucleic acid test capable of simultaneous qualitative detection and identification of multiple respiratory viral and bacterial nucleic acids, including SARS Coronavirus 2 (the causative agent of COVID-19). The following bacteria, viruses and virus subtypes can be identified using the FilmArray RP2.1 assay: Bordetella pertussis, Bordetella parapertussis, Chlamydia pneumoniae, Mycoplasma pneumoniae, Adenovirus, SARS Coronavirus 2, seasonal coronaviruses (Coronavirus HKU1, Coronavirus NL63, Coronavirus 229E, and Coronavirus OC43), Influenza A, Influenza A subtype H1, Influenza A subtype H3, Influenza A subtype 2009 H1, Influenza B, Metapneumovirus, Parainfluenza 1, Parainfluenza 2, Parainfluenza 3, Parainfluenza 4, RSV, Rhinovirus/Enterovirus. Due to the genetic similarity between human Rhinovirus and Enterovirus, the FilmArray RP2.1 assay cannot reliably differentiate them. Coronavirus OC43 may cross-react with some isolates of Coronavirus HKU1. A dual positive result may be due to cross-reactivity or may indicate a co- infection. The detection and identification of specific viral and bacterial nucleic acids from individuals exhibiting signs and symptoms of a respiratory infection aids in the diagnosis of respiratory infection if used in conjunction with other clinical and epidemiological information. The results of this test should not be used as the sole basis for diagnosis, treatment, or other management decisions. Negative results in the setting of a respiratory illness may be due to infection with pathogens that are not detected by this test. Positive results do not rule out infection/co-infection with other organisms. The agent(s) detected by the FilmArray RP2.1 may not be the definite cause of disease. Additional testing (lab, imaging, etc.) may be necessary when evaluating a patient with possible respiratory tract infection. The FilmArray RP2.1 assay has FDA clearance for testing of [employer] swabs. The performance of additional specimen types has been assessed by the performing laboratory. The performance characteristics of this assay have been determined by [facility] Infectious Disease [facility]. Current interpretive data was last revised on 22. us Matthew Santiago MD LAB MICROBIOLOGY - GENERAL ORD ERABLES Final Result [facility] [place] [address] * Blood culture Blood Peripheral (10/25/2024 11:27 AM CDT) Report Final Report: No growth Blood (Peripheral) 10/25/2024 11:27 AM CDT 10/25/2024 11:42 AM CDT Narrative NERY ARAGON - 10/29/2024 12:00 PM CDT From a different site than #1. Draw Blood cultures before administration of Antibiotics Collection->Peripheral 1. Blood cultures are incubated for 4 days on a continuously monitored blood culture system. The first report of a negative culture is issued within 24 hours of receipt of the specimen in the laboratory. 2. Positive culture results are reported as soon as they are detected. 3. The most important factor for detection of microbes in the setting of bloodstream infection is the volume of blood submitted for culture. Failure to collect an optimal blood volume can result in false negative blood cultures. 4. For pediatric patients, the recommended blood volume to collect follows a weight based strategy. See the electronic test catalog for collection instructions. 5. For positive blood cultures, a rapid molecular test may be performed for organism identification using the oliverio ePlex blood culture identification panel for gram positive (BCID-GP) and gram negative (BCID-GN) organisms. This nucleic acid amplification test detects microbial DNA in positive blood culture broth. This assay has been cleared by the [place] Food and Drug Administration and its performance characteristics have been verified by the [facility]. For questions about this culture, contact the Microbiology Laboratory at [phone]. Interpretive data was last revised on 24. us Matthew Santiago MD LAB MICROBIOLOGY - GENERAL ORD ERABLES Final Result [facility]ERY ARAGON [facility] [place] [address] * (ABNORMAL) Sepsis Lactate w/ Reflex (10/25/2024 11:19 AM CDT) Sepsis Lactate 5.5(C) 0.7 - 2.0 mmol/L Blood 10/25/2024 11:1 9 AM CDT 10/25/2024 11:24 AM CDT us Matthew Santiago MD LAB BLOOD ORDERABLES Final Res ult NERY [facility] [place] [address] * Critical Result Callback Chemistry (10/25/2024 11:19 AM CDT) Date Notified 20241025 Time Notified 1130 NERY ARAGON TestName Sepsis Lactate NERY ARAGON Called/Read Back Matthew ARAGON Credentials MD NERY ARAGON Called By edie ARAGON Blood 10/25/2024 11:1 9 AM CDT 10/25/2024 11:24 AM CDT us Matthew Santiago MD LAB BLOOD ORDERABLES Final Res ult Performing Organization Address [facility] Co de Phone Number [facility] Department [place] [address] * Blood culture Blood Peripheral (10/25/2024 11:19 AM CDT) Report Final Report: No growth Blood (Peripheral) 10/25/2024 11:19 AM CDT 10/25/2024 11:42 AM CDT Narrative NERY HUASIN - 10/29/2024 12:00 PM CDT Draw Blood cultures before administration of Antibiotics Collection->Peripheral 1. Blood cultures are incubated for 4 days on a continuously monitored blood culture system. The first report of a negative culture is issued within 24 hours of receipt of the specimen in the laboratory. 2. Positive culture results are reported as soon as they are detected. 3. The most important factor for detection of microbes in the setting of bloodstream infection is the volume of blood submitted for culture. Failure to collect an optimal blood volume can result in false negative blood cultures. 4. For pediatric patients, the recommended blood volume to collect follows a weight based strategy. See the electronic test catalog for collection instructions. 5. For positive blood cultures, a rapid molecular test may be performed for organism identification using the oliverio ePlex blood culture identification panel for gram positive (BCID-GP) and gram negative (BCID-GN) organisms. This nucleic acid amplification test detects microbial DNA in positive blood culture broth. This assay has been cleared by the [place] Food and Drug Administration and its performance characteristics have been verified by the [facility]. For questions about this culture, contact the Microbiology Laboratory at [phone]. Interpretive data was last revised on 24. us Matthew Santiago MD LAB MICROBIOLOGY - GENERAL ORD ERABLES Final Result Performing Organization Address City/[facility]/ZIP Co de Phone Number [facility] [place] [address] * (ABNORMAL) Sepsis Lactate w/ Reflex (10/25/2024 10:53 AM CDT) Sepsis Lactate 5.3(C) 0.7 - 2.0 mmol/L Blood 10/25/2024 10:5 3 AM CDT 10/25/2024 10:58 AM CDT us Matthew Santiago MD LAB BLOOD ORDERABLES Final Res ult Performing Organization Address [facility] Co de Phone Number [facility] [place] [address] * eGFR (10/25/2024 10:53 AM CDT) eGFR 89 >=60 mL/min/1. 73 m2 Comment: Interpretive Data [...] interpretive data was last reviewed 2021. Blood 10/25/2024 10:5 3 AM CDT 10/25/2024 11:19 AM CDT us Matthew Santiago MD LAB BLOOD ORDERABLES Final Res ult [facility] [place] [address] * (ABNORMAL) Differential, auto (10/25/2024 10:53 AM CDT) Neutrophil abs 7.90(H) 1.50 - 6.50 K/cumm Imm gran abs 0.24(H) 0.00 - 0.10 K/cumm [facility] Lymphocyte abs 1.39 0.80 - 3.30 K/cumm [facility] Monocyte abs 1.01(H) 0.20 - 0.80 K/cumm [facility] Eosinophil abs 0.04 0.00 - 0.50 K/cumm [facility] Basophil abs 0.04 0.00 - 0.10 K/cumm [facility] Neutrophil pct 74.3 % [facility] Comment: Interpretive Data Percent cell count reference ranges are not reported, since discordance with absolute values may lead to misinterpretation of CBC data. Current Interpretive Data was last revised on 2017. Imm gran pct 2.3 % [facility] Comment: Interpretive Data Percent cell count reference ranges are not reported, since discordance with absolute values may lead to misinterpretation of CBC data. Current Interpretive Data was last revised on 2017. Lymphocyte pct 13.1 % [facility] Comment: Interpretive Data Percent cell count reference ranges are not reported, since discordance with absolute values may lead to misinterpretation of CBC data. Current Interpretive Data was last revised on 2017. Monocyte pct 9.5 % N[facility] Comment: Interpretive Data Percent cell count reference ranges are not reported, since discordance with absolute values may lead to misinterpretation of CBC data. Current Interpretive Data was last revised on 2017. Eosinophil pct 0.4 % N[facility] Comment: Interpretive Data Percent cell count reference ranges are not reported, since discordance with absolute values may lead to misinterpretation of CBC data. Current Interpretive Data was last revised on 2017. Basophil pct 0.4 % N[facility] Comment: Interpretive Data Percent cell count reference ranges are not reported, since discordance with absolute values may lead to misinterpretation of CBC data. Current Interpretive Data was last revised on 2017. Blood 10/25/2024 10:5 3 AM CDT 10/25/2024 11:19 AM CDT Matthew Santiago MD LAB BLOOD ORDERABLES Final Res ult Performing Organization Address City/[facility]/ZIP Co de Phone Number [facility] Department [place] [address] * Critical Result Callback Chemistry (10/25/2024 10:53 AM CDT) Date Notified 20241025 Time Notified 1104 NERY HUSAIN TestName Sepsis Lactate NERY HUSAIN Called/Read Back Matthew HUSAIN Credentials MD NERY ARAGON Called By edie HUSAIN Blood 10/25/2024 10:5 3 AM CDT 10/25/2024 10:58 AM CDT us Matthew Santiago MD LAB BLOOD ORDERABLES Final Res ult [facility] [place] [address] * (ABNORMAL) CBC with auto differential (10/25/2024 10:53 AM CDT) WBC 10.62(H) 3.80 - 9.90 K/cumm Hgb 8.9(L) 13.0 - 17.5 g/dL [facility] Hct 28.2(L) 38.9 - 50.3 % [facility] Plt 487(H) 150 - 400 K/cumm [facility] MPV 8.5(L) 9.1 - 12.3 fL [facility] RBC 3.51(L) 4.30 - 5.80 M/cumm [facility] MCV 80.3(L) 81.3 - 96.4 fL [facility] MCH 25.4(L) 27.1 - 33.3 pg [facility] MCHC 31.6(L) 32.3 - 35.7 g/dL [facility] RDW CV 21.5(H) 11.1 - 14.9 % [facility] RDW SD 62.0(H) 35.7 - 48.1 fL [facility] NRBC abs 0.11(H) 0.00 - 0.01 K/cumm [facility] Blood 10/25/2024 10:5 3 AM CDT 10/25/2024 11:19 AM CDT us Matthew Santiago MD LAB BLOOD ORDERABLES Final Res ult [facility] [place] [address] * (ABNORMAL) Comprehensive metabolic panel (10/25/2024 10:53 AM CDT) [facility] Sodium 142 135 - 145 mmol/L Potassium, pl 4.0 3.3 - 4.9 mmol/L [facility] Chloride 104 97 - 110 mmol/L [facility] CO2 24 22 - 32 mmol/L [facility] Anion gap 14 2 - 15 mmol/L [facility] BUN 18 6 - 25 mg/dL [facility] Creatinine 0.84 0.80 - 1.30 mg/dL [facility] Glucose 119 70 - 199 mg/dL [facility] Comment: Interpretive Data Fasting glucose >/= 126 [...] interpretive data was last revised 2022. Calcium 6.7(L) 8.5 - 10.3 mg/dL [facility] Bilirubin, total 0.2 0.1 - 1.2 mg/dL [facility] Protein, pl 6.6 6.5 - 8.5 g/dL [facility] Albumin 3.0(L) 3.5 - 5.0 g/dL [facility] Alk phos 428(H) 40 - 130 Units/L [facility] ALT 18 7 - 55 Units/L [facility] AST 82(H) 10 - 50 Units/L [facility] Blood 10/25/2024 10:5 3 AM CDT 10/25/2024 11:19 AM CDT us Matthew Santiago MD LAB BLOOD ORDERABLES Final Res ult Performing Organization Address City/[facility]/ZIP Co de Phone Number [facility] [place] [address] * POCT glucose (10/25/2024 9:37 AM CDT) [facility] Signature Glucose, POC 146 70 - 199 mg/dL Blood 10/25/2024 9:37 AM CDT 10/25/2024 9:37 AM CDT us Notinfile Unknown LAB POCT ORDERABLES - DEVICE F inal Result Performing Organization Address City/[facility]/ZIP Co de Phone Number [facility] [place] [address] * eGFR (10/24/2024 12:27 AM CDT) Pathologist [facility] eGFR 82 >=60 mL/min/1. 73 m2 Comment: Interpretive Data [...] interpretive data was last reviewed 2021. Blood 10/24/2024 12:2 7 AM CDT 10/24/2024 12:44 AM CDT us Young Thapa MD LAB BLOOD ORDERABLES Carina gardner Result [facility] [place] [address] * (ABNORMAL) Differential, auto (10/24/2024 12:27 AM CDT) [facility] Neutrophil abs 7.92(H) 1.50 - 6.50 K/cumm Imm gran abs 0.17(H) 0.00 - 0.10 K/cumm [facility] Lymphocyte abs 1.01 0.80 - 3.30 K/cumm [facility] Monocyte abs 0.37 0.20 - 0.80 K/cumm [facility] Eosinophil abs 0.08 0.00 - 0.50 K/cumm [facility] Basophil abs 0.09 0.00 - 0.10 K/cumm [facility] Neutrophil pct 82.2 % [facility] Comment: Interpretive Data Percent cell count reference ranges are not reported, since discordance with absolute values may lead to misinterpretation of CBC data. Current Interpretive Data was last revised on 2017. Imm gran pct 1.8 % N[facility] Comment: Interpretive Data Percent cell count reference ranges are not reported, since discordance with absolute values may lead to misinterpretation of CBC data. Current Interpretive Data was last revised on 2017. Lymphocyte pct 10.5 % N[facility] Comment: Interpretive Data Percent cell count reference ranges are not reported, since discordance with absolute values may lead to misinterpretation of CBC data. Current Interpretive Data was last revised on 2017. Monocyte pct 3.8 % [facility] Comment: Interpretive Data Percent cell count reference ranges are not reported, since discordance with absolute values may lead to misinterpretation of CBC data. Current Interpretive Data was last revised on 2017. Eosinophil pct 0.8 % [facility] Comment: Interpretive Data Percent cell count reference ranges are not reported, since discordance with absolute values may lead to misinterpretation of CBC data. Current Interpretive Data was last revised on 2017. Basophil pct 0.9 % [facility] Comment: Interpretive Data Percent cell count reference ranges are not reported, since discordance with absolute values may lead to misinterpretation of CBC data. Current Interpretive Data was last revised on 2017. Blood 10/24/2024 12:2 7 AM CDT 10/24/2024 12:44 AM CDT Young Thapa MD LAB BLOOD ORDERABLES Carina gardner Result [facility] [place] [address] * (ABNORMAL) CBC with auto differential (10/24/2024 12:27 AM CDT) WBC 9.64 3.80 - 9.90 K/cumm Hgb 8.7(L) 13.0 - 17.5 g/dL N[facility] Hct 28.1(L) 38.9 - 50.3 % [facility] Plt 425(H) 150 - 400 K/cumm [facility] MPV 8.6(L) 9.1 - 12.3 fL [facility] RBC 3.40(L) 4.30 - 5.80 M/cumm [facility] MCV 82.6 81.3 - 96.4 fL [facility] MCH 25.6(L) 27.1 - 33.3 pg [facility] MCHC 31.0(L) 32.3 - 35.7 g/dL [facility] RDW CV 21.6(H) 11.1 - 14.9 % [facility] RDW SD 62.8(H) 35.7 - 48.1 fL [facility] NRBC abs 0.05(H) 0.00 - 0.01 K/cumm [facility] Blood 10/24/2024 12:2 7 AM CDT 10/24/2024 12:44 AM CDT Young Thapa MD LAB BLOOD ORDERABLES Carina l Result Performing Organization Address City/[facility]/ZIP Co de Phone Number [facility] [place] [address] * (ABNORMAL) Phosphorus (10/24/2024 12:27 AM CDT) Pathologist [facility] Phosphorus, pl 1.8(L) 2.3 - 4.5 mg/dL Blood 10/24/2024 12:2 7 AM CDT 10/24/2024 12:44 AM CDT Young Thapa MD LAB BLOOD ORDERABLES Carina l Result [facility] [place] [address] * (ABNORMAL) Comprehensive metabolic panel (10/24/2024 12:27 AM CDT) Pathologist [facility] Sodium 143 135 - 145 mmol/L Potassium, pl 4.5 3.3 - 4.9 mmol/L [facility] Chloride 106 97 - 110 mmol/L [facility] CO2 20(L) 22 - 32 mmol/L [facility] Anion gap 17(H) 2 - 15 mmol/L [facility] BUN 15 6 - 25 mg/dL [facility] Creatinine 0.94 0.80 - 1.30 mg/dL [facility] Glucose 161 70 - 199 mg/dL [facility] Comment: Interpretive Data Fasting glucose >/= 126 [...] interpretive data was last revised 2022. Calcium 6.9(L) 8.5 - 10.3 mg/dL [facility] Bilirubin, total 0.2 0.1 - 1.2 mg/dL [facility] Protein, pl 6.9 6.5 - 8.5 g/dL [facility] Albumin 3.1(L) 3.5 - 5.0 g/dL [facility] Alk phos 469(H) 40 - 130 Units/L [facility] ALT 18 7 - 55 Units/L [facility] AST 38 10 - 50 Units/L [facility] Blood 10/24/2024 12:2 7 AM CDT 10/24/2024 12:44 AM CDT us Young Thapa MD LAB BLOOD ORDERABLES Carina gardner Result [facility] [place] [address] * XR Femur Right 2 or More Views (10/23/2024 10:35 PM CDT) Anatomical Region Laterality Modality Lower Extremities, Thigh, Femur Right Computed Radiography 10/24/2024 6:02 AM CDT Impressions 10/24/2024 6:02 AM CDT 1. Unchanged extensive, diffuse osseous blastic metastatic disease throughout the visualized axial and appendicular skeleton without or or immediate risk of developing pathologic fracture Electronically signed by: Massimo Brown MD, PHD Narrative 10/24/2024 6:02 AM CDT EXAMINATION: Scoliosis 2 or 3 views; right humerus 2+ views; left humerus 2+ views; left femur 2+ views; right femur 2+ views; hips bilateral with pelvis 5+ views HISTORY: Metastatic prostate cancer FINDINGS: 6 stitched frontal and lateral radiographs of the entire spine, 5 radiographs of pelvis and both hips, 4 radiographs of the right and left femur, and 2 radiographs of the right left humerus are compared to MRI of the entire spine and PET/CT examination from the same day. Diffuse osseous blastic metastatic disease is noted throughout the axial and appendicular skeleton. There is mild vertebral body height loss at T9-T11 of unknown chronicity. There is mild upper lumbar levocurvature of long segment thoracic dextrocurvature with mild positive sagittal imbalance. There is neutral coronal balance without pelvic obliquity. Large diffuse blastic metastasis are noted within the pelvis, both femora, and humeri without or immediate risk of developing pathologic fracture left proximal tibia lateral fixation plate and screws are incompletely evaluated. There are no knee joint effusions. Procedure Note Massimo Brown MD PhD - 10/24/2024 EXAMINATION: Scoliosis 2 or 3 views; right humerus 2+ views; left humerus 2+ views; left femur 2+ views; right femur 2+ views; hips bilateral with pelvis 5+ views HISTORY: Metastatic prostate cancer FINDINGS: 6 stitched frontal and lateral radiographs of the entire spine, 5 radiographs of pelvis and both hips, 4 radiographs of the right and left femur, and 2 radiographs of the right left humerus are compared to MRI of the entire spine and PET/CT examination from the same day. Diffuse osseous blastic metastatic disease is noted throughout the axial and appendicular skeleton. There is mild vertebral body height loss at T9-T11 of unknown chronicity. There is mild upper lumbar levocurvature of long segment thoracic dextrocurvature with mild positive sagittal imbalance. There is neutral coronal balance without pelvic obliquity. Large diffuse blastic metastasis are noted within the pelvis, both femora, and humeri without or immediate risk of developing pathologic fracture left proximal tibia lateral fixation plate and screws are incompletely evaluated. There are no knee joint effusions. IMPRESSION: 1. Unchanged extensive, diffuse osseous blastic metastatic disease throughout the visualized axial and appendicular skeleton without or or immediate risk of developing pathologic fracture Electronically signed by: Massimo Brown MD, PHD us Nima Burgos MD IMG XR PROCEDURES Final Res ult * XR Femur Left 2 or More Views (10/23/2024 10:35 PM CDT) Anatomical Region Laterality Modality Lower Extremities, Thigh, Femur Left Computed Radiography 10/24/2024 6:02 AM CDT Impressions 10/24/2024 6:02 AM CDT 1. Unchanged extensive, diffuse osseous blastic metastatic disease throughout the visualized axial and appendicular skeleton without or or immediate risk of developing pathologic fracture Electronically signed by: Massimo Brown MD, PHD Narrative 10/24/2024 6:02 AM CDT EXAMINATION: Scoliosis 2 or 3 views; right humerus 2+ views; left humerus 2+ views; left femur 2+ views; right femur 2+ views; hips bilateral with pelvis 5+ views HISTORY: Metastatic prostate cancer FINDINGS: 6 stitched frontal and lateral radiographs of the entire spine, 5 radiographs of pelvis and both hips, 4 radiographs of the right and left femur, and 2 radiographs of the right left humerus are compared to MRI of the entire spine and PET/CT examination from the same day. Diffuse osseous blastic metastatic disease is noted throughout the axial and appendicular skeleton. There is mild vertebral body height loss at T9-T11 of unknown chronicity. There is mild upper lumbar levocurvature of long segment thoracic dextrocurvature with mild positive sagittal imbalance. There is neutral coronal balance without pelvic obliquity. Large diffuse blastic metastasis are noted within the pelvis, both femora, and humeri without or immediate risk of developing pathologic fracture left proximal tibia lateral fixation plate and screws are incompletely evaluated. There are no knee joint effusions. Procedure Note Massimo Brown MD PhD - 10/24/2024 EXAMINATION: Scoliosis 2 or 3 views; right humerus 2+ views; left humerus 2+ views; left femur 2+ views; right femur 2+ views; hips bilateral with pelvis 5+ views HISTORY: Metastatic prostate cancer FINDINGS: 6 stitched frontal and lateral radiographs of the entire spine, 5 radiographs of pelvis and both hips, 4 radiographs of the right and left femur, and 2 radiographs of the right left humerus are compared to MRI of the entire spine and PET/CT examination from the same day. Diffuse osseous blastic metastatic disease is noted throughout the axial and appendicular skeleton. There is mild vertebral body height loss at T9-T11 of unknown chronicity. There is mild upper lumbar levocurvature of long segment thoracic dextrocurvature with mild positive sagittal imbalance. There is neutral coronal balance without pelvic obliquity. Large diffuse blastic metastasis are noted within the pelvis, both femora, and humeri without or immediate risk of developing pathologic fracture left proximal tibia lateral fixation plate and screws are incompletely evaluated. There are no knee joint effusions. IMPRESSION: 1. Unchanged extensive, diffuse osseous blastic metastatic disease throughout the visualized axial and appendicular skeleton without or or immediate risk of developing pathologic fracture Electronically signed by: Massimo Brown MD, PHD us Nima Burgos MD IMG XR PROCEDURES Final Res ult * XR Hips Bilateral 5 or More Views W Pelvis (10/23/2024 10:35 PM CDT) Anatomical Region Laterality Modality Lower Extremities, Hip, Pelvis Bilateral C omputed Radiography 10/24/2024 6:02 AM CDT Impressions 10/24/2024 6:02 AM CDT 1. Unchanged extensive, diffuse osseous blastic metastatic disease throughout the visualized axial and appendicular skeleton without or or immediate risk of developing pathologic fracture Electronically signed by: Massimo Brown MD, PHD Narrative 10/24/2024 6:02 AM CDT EXAMINATION: Scoliosis 2 or 3 views; right humerus 2+ views; left humerus 2+ views; left femur 2+ views; right femur 2+ views; hips bilateral with pelvis 5+ views HISTORY: Metastatic prostate cancer FINDINGS: 6 stitched frontal and lateral radiographs of the entire spine, 5 radiographs of pelvis and both hips, 4 radiographs of the right and left femur, and 2 radiographs of the right left humerus are compared to MRI of the entire spine and PET/CT examination from the same day. Diffuse osseous blastic metastatic disease is noted throughout the axial and appendicular skeleton. There is mild vertebral body height loss at T9-T11 of unknown chronicity. There is mild upper lumbar levocurvature of long segment thoracic dextrocurvature with mild positive sagittal imbalance. There is neutral coronal balance without pelvic obliquity. Large diffuse blastic metastasis are noted within the pelvis, both femora, and humeri without or immediate risk of developing pathologic fracture left proximal tibia lateral fixation plate and screws are incompletely evaluated. There are no knee joint effusions. Procedure Note Massimo Brown MD PhD - 10/24/2024 EXAMINATION: Scoliosis 2 or 3 views; right humerus 2+ views; left humerus 2+ views; left femur 2+ views; right femur 2+ views; hips bilateral with pelvis 5+ views HISTORY: Metastatic prostate cancer FINDINGS: 6 stitched frontal and lateral radiographs of the entire spine, 5 radiographs of pelvis and both hips, 4 radiographs of the right and left femur, and 2 radiographs of the right left humerus are compared to MRI of the entire spine and PET/CT examination from the same day. Diffuse osseous blastic metastatic disease is noted throughout the axial and appendicular skeleton. There is mild vertebral body height loss at T9-T11 of unknown chronicity. There is mild upper lumbar levocurvature of long segment thoracic dextrocurvature with mild positive sagittal imbalance. There is neutral coronal balance without pelvic obliquity. Large diffuse blastic metastasis are noted within the pelvis, both femora, and humeri without or immediate risk of developing pathologic fracture left proximal tibia lateral fixation plate and screws are incompletely evaluated. There are no knee joint effusions. IMPRESSION: 1. Unchanged extensive, diffuse osseous blastic metastatic disease throughout the visualized axial and appendicular skeleton without or or immediate risk of developing pathologic fracture Electronically signed by: Massimo Brown MD, PHD us Nima Burgos MD IMG XR PROCEDURES Final Res ult * XR Scoliosis Ap and Lateral (10/23/2024 10:35 PM CDT) Anatomical Region Laterality Modality Spine N/A Computed Radiogr aphy 10/24/2024 6:02 AM CDT Impressions 10/24/2024 6:02 AM CDT 1. Unchanged extensive, diffuse osseous blastic metastatic disease throughout the visualized axial and appendicular skeleton without or or immediate risk of developing pathologic fracture Electronically signed by: Massimo Brown MD, PHD Narrative 10/24/2024 6:02 AM CDT EXAMINATION: Scoliosis 2 or 3 views; right humerus 2+ views; left humerus 2+ views; left femur 2+ views; right femur 2+ views; hips bilateral with pelvis 5+ views HISTORY: Metastatic prostate cancer FINDINGS: 6 stitched frontal and lateral radiographs of the entire spine, 5 radiographs of pelvis and both hips, 4 radiographs of the right and left femur, and 2 radiographs of the right left humerus are compared to MRI of the entire spine and PET/CT examination from the same day. Diffuse osseous blastic metastatic disease is noted throughout the axial and appendicular skeleton. There is mild vertebral body height loss at T9-T11 of unknown chronicity. There is mild upper lumbar levocurvature of long segment thoracic dextrocurvature with mild positive sagittal imbalance. There is neutral coronal balance without pelvic obliquity. Large diffuse blastic metastasis are noted within the pelvis, both femora, and humeri without or immediate risk of developing pathologic fracture left proximal tibia lateral fixation plate and screws are incompletely evaluated. There are no knee joint effusions. Procedure Note Massimo Brown MD PhD - 10/24/2024 EXAMINATION: Scoliosis 2 or 3 views; right humerus 2+ views; left humerus 2+ views; left femur 2+ views; right femur 2+ views; hips bilateral with pelvis 5+ views HISTORY: Metastatic prostate cancer FINDINGS: 6 stitched frontal and lateral radiographs of the entire spine, 5 radiographs of pelvis and both hips, 4 radiographs of the right and left femur, and 2 radiographs of the right left humerus are compared to MRI of the entire spine and PET/CT examination from the same day. Diffuse osseous blastic metastatic disease is noted throughout the axial and appendicular skeleton. There is mild vertebral body height loss at T9-T11 of unknown chronicity. There is mild upper lumbar levocurvature of long segment thoracic dextrocurvature with mild positive sagittal imbalance. There is neutral coronal balance without pelvic obliquity. Large diffuse blastic metastasis are noted within the pelvis, both femora, and humeri without or immediate risk of developing pathologic fracture left proximal tibia lateral fixation plate and screws are incompletely evaluated. There are no knee joint effusions. IMPRESSION: 1. Unchanged extensive, diffuse osseous blastic metastatic disease throughout the visualized axial and appendicular skeleton without or or immediate risk of developing pathologic fracture Electronically signed by: Massimo Brown MD, PHD Nima Burgos MD IMG XR PROCEDURES Final Res ult * XR Humerus Right 2 or More Views (10/23/2024 10:35 PM CDT) Anatomical Region Laterality Modality Upper Extremities, Upper Arm Right Com puted Radiography 10/24/2024 6:02 AM CDT Impressions 10/24/2024 6:02 AM CDT 1. Unchanged extensive, diffuse osseous blastic metastatic disease throughout the visualized axial and appendicular skeleton without or or immediate risk of developing pathologic fracture Electronically signed by: Massimo Brown MD, PHD Narrative 10/24/2024 6:02 AM CDT EXAMINATION: Scoliosis 2 or 3 views; right humerus 2+ views; left humerus 2+ views; left femur 2+ views; right femur 2+ views; hips bilateral with pelvis 5+ views HISTORY: Metastatic prostate cancer FINDINGS: 6 stitched frontal and lateral radiographs of the entire spine, 5 radiographs of pelvis and both hips, 4 radiographs of the right and left femur, and 2 radiographs of the right left humerus are compared to MRI of the entire spine and PET/CT examination from the same day. Diffuse osseous blastic metastatic disease is noted throughout the axial and appendicular skeleton. There is mild vertebral body height loss at T9-T11 of unknown chronicity. There is mild upper lumbar levocurvature of long segment thoracic dextrocurvature with mild positive sagittal imbalance. There is neutral coronal balance without pelvic obliquity. Large diffuse blastic metastasis are noted within the pelvis, both femora, and humeri without or immediate risk of developing pathologic fracture left proximal tibia lateral fixation plate and screws are incompletely evaluated. There are no knee joint effusions. Procedure Note Massimo Brown MD PhD - 10/24/2024 EXAMINATION: Scoliosis 2 or 3 views; right humerus 2+ views; left humerus 2+ views; left femur 2+ views; right femur 2+ views; hips bilateral with pelvis 5+ views HISTORY: Metastatic prostate cancer FINDINGS: 6 stitched frontal and lateral radiographs of the entire spine, 5 radiographs of pelvis and both hips, 4 radiographs of the right and left femur, and 2 radiographs of the right left humerus are compared to MRI of the entire spine and PET/CT examination from the same day. Diffuse osseous blastic metastatic disease is noted throughout the axial and appendicular skeleton. There is mild vertebral body height loss at T9-T11 of unknown chronicity. There is mild upper lumbar levocurvature of long segment thoracic dextrocurvature with mild positive sagittal imbalance. There is neutral coronal balance without pelvic obliquity. Large diffuse blastic metastasis are noted within the pelvis, both femora, and humeri without or immediate risk of developing pathologic fracture left proximal tibia lateral fixation plate and screws are incompletely evaluated. There are no knee joint effusions. IMPRESSION: 1. Unchanged extensive, diffuse osseous blastic metastatic disease throughout the visualized axial and appendicular skeleton without or or immediate risk of developing pathologic fracture Electronically signed by: Massimo Brown MD, PHD us Nima Burgos MD IMG XR PROCEDURES Final Res ult * XR Humerus Left 2 or More Views (10/23/2024 10:35 PM CDT) Anatomical Region Laterality Modality Upper Extremities, Upper Arm Left Com puted Radiography 10/24/2024 6:02 AM CDT Impressions 10/24/2024 6:02 AM CDT 1. Unchanged extensive, diffuse osseous blastic metastatic disease throughout the visualized axial and appendicular skeleton without or or immediate risk of developing pathologic fracture Electronically signed by: Massimo Brown MD, PHD Narrative 10/24/2024 6:02 AM CDT EXAMINATION: Scoliosis 2 or 3 views; right humerus 2+ views; left humerus 2+ views; left femur 2+ views; right femur 2+ views; hips bilateral with pelvis 5+ views HISTORY: Metastatic prostate cancer FINDINGS: 6 stitched frontal and lateral radiographs of the entire spine, 5 radiographs of pelvis and both hips, 4 radiographs of the right and left femur, and 2 radiographs of the right left humerus are compared to MRI of the entire spine and PET/CT examination from the same day. Diffuse osseous blastic metastatic disease is noted throughout the axial and appendicular skeleton. There is mild vertebral body height loss at T9-T11 of unknown chronicity. There is mild upper lumbar levocurvature of long segment thoracic dextrocurvature with mild positive sagittal imbalance. There is neutral coronal balance without pelvic obliquity. Large diffuse blastic metastasis are noted within the pelvis, both femora, and humeri without or immediate risk of developing pathologic fracture left proximal tibia lateral fixation plate and screws are incompletely evaluated. There are no knee joint effusions. Procedure Note Massimo Brown MD PhD - 10/24/2024 EXAMINATION: Scoliosis 2 or 3 views; right humerus 2+ views; left humerus 2+ views; left femur 2+ views; right femur 2+ views; hips bilateral with pelvis 5+ views HISTORY: Metastatic prostate cancer FINDINGS: 6 stitched frontal and lateral radiographs of the entire spine, 5 radiographs of pelvis and both hips, 4 radiographs of the right and left femur, and 2 radiographs of the right left humerus are compared to MRI of the entire spine and PET/CT examination from the same day. Diffuse osseous blastic metastatic disease is noted throughout the axial and appendicular skeleton. There is mild vertebral body height loss at T9-T11 of unknown chronicity. There is mild upper lumbar levocurvature of long segment thoracic dextrocurvature with mild positive sagittal imbalance. There is neutral coronal balance without pelvic obliquity. Large diffuse blastic metastasis are noted within the pelvis, both femora, and humeri without or immediate risk of developing pathologic fracture left proximal tibia lateral fixation plate and screws are incompletely evaluated. There are no knee joint effusions. IMPRESSION: 1. Unchanged extensive, diffuse osseous blastic metastatic disease throughout the visualized axial and appendicular skeleton without or or immediate risk of developing pathologic fracture Electronically signed by: Massimo Brown MD, PHD us Nima Burgos MD IMG XR PROCEDURES Final Res ult * MRI Lumbar Spine W WO Contrast (10/23/2024 6:28 PM CDT) Anatomical Region Laterality Modality Spine N/A Magnetic Resonan ce 10/23/2024 7:18 PM CDT Impressions 10/23/2024 7:33 PM CDT 1. Diffuse metastatic disease with ventral epidural enhancement extending from L5 to the visualized sacrum resulting in compression of the cauda equina nerve roots at L5-S1 2. Partially evaluated enhancing lesion at the level of S3, likely represent additional metastatic disease. 3. Moderate to severe left L5-S1 neural foraminal stenosis. 4. Questionable partially evaluated compression deformity of T11 vertebral body. The Critical results were discussed with Dr. Nima Burgos by Dr. Devante Pederson on 10/23/2024 at 7:18 PM. Dictated by: Devante Pederson D.O. The radiology attending physician has personally reviewed this study, and had reviewed and/or edited this written report and agrees with it. Electronically signed by: MD Brad Aldrich 10/23/2024 7:33 PM CDT EXAMINATION: Magnetic resonance imaging (MRI) of the lumbar spine without and with contrast HISTORY: Metastatic prostate cancer with lower extremity weakness. Evaluate for cord compression. TECHNIQUE: Multiplanar multi-weighted MRI of the lumbar spine was performed without and with intravenous contrast using the standard protocol. Contrast information: 15 mL Gadoterate Meglumine IV COMPARISON: CT lumbar spine 10/20/2024, PET/CT 10/23/2024. FINDINGS: The alignment of the lumbar spine is normal. Diffuse metastatic disease throughout the visualized lower thoracic and lumbar spine as well as the visualized sacrum.. Questionable partially evaluated compression deformity of T11 vertebral body.. The conus medullaris terminates at the level of L2-L3. The distal spinal cord signal intensity is normal. Intervertebral disks have normal height and signal intensity. There are no annular fissures identified. Partially visualized left hydroureteronephrosis with atrophic left kidney, unchanged from comparison PET. The aorta is normal. Ventral epidural enhancement extending from superior endplate of L5 through the visualized sacrum measuring 9 mm in maximal thickness with resultant compression of the cauda equina nerve roots. Prevertebral enhancement corresponding to FDG uptake on PET/CT extending from L3 to L5. 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 Moderate to severe left L5-S1 neural foraminal narrowing. Procedure Note Bradley Levin MD - 10/23/2024 EXAMINATION: Magnetic resonance imaging (MRI) of the lumbar spine without and with contrast HISTORY: Metastatic prostate cancer with lower extremity weakness. Evaluate for cord compression. TECHNIQUE: Multiplanar multi-weighted MRI of the lumbar spine was performed without and with intravenous contrast using the standard protocol. Contrast information: 15 mL Gadoterate Meglumine IV COMPARISON: CT lumbar spine 10/20/2024, PET/CT 10/23/2024. FINDINGS: The alignment of the lumbar spine is normal. Diffuse metastatic disease throughout the visualized lower thoracic and lumbar spine as well as the visualized sacrum.. Questionable partially evaluated compression deformity of T11 vertebral body.. The conus medullaris terminates at the level of L2-L3. The distal spinal cord signal intensity is normal. Intervertebral disks have normal height and signal intensity. There are no annular fissures identified. Partially visualized left hydroureteronephrosis with atrophic left kidney, unchanged from comparison PET. The aorta is normal. Ventral epidural enhancement extending from superior endplate of L5 through the visualized sacrum measuring 9 mm in maximal thickness with resultant compression of the cauda equina nerve roots. Prevertebral enhancement corresponding to FDG uptake on PET/CT extending from L3 to L5. 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 Moderate to severe left L5-S1 neural foraminal narrowing. IMPRESSION: 1. Diffuse metastatic disease with ventral epidural enhancement extending from L5 to the visualized sacrum resulting in compression of the cauda equina nerve roots at L5-S1 2. Partially evaluated enhancing lesion at the level of S3, likely represent additional metastatic disease. 3. Moderate to severe left L5-S1 neural foraminal stenosis. 4. Questionable partially evaluated compression deformity of T11 vertebral body. The Critical results were discussed with Dr. Nima Burgos by Dr. Devante Pederson on 10/23/2024 at 7:18 PM. Dictated by: Noor Alnazal, D.O. The radiology attending physician has personally reviewed this study, and had reviewed and/or edited this written report and agrees with it. Electronically signed by: Bradley Levin MD Nima Burgos MD IMG MRI PROCEDURES Final Re sult * PET/CT FDG Skull to Thigh (10/23/2024 12:52 PM CDT) Anatomical Region Laterality Modality N/A Positron Emissio n Tomography (PET) 10/23/2024 2:08 PM CDT Impressions 10/23/2024 2:30 PM CDT 1. Widespread concordantly hypermetabolic and PSMA overexpressing osseous metastatic disease involving nearly the entirety of the axial appendicular skeleton with scattered lesions, for example in the right sternomanubrial junction demonstrate cortical breakthrough and soft tissue components. 2. More limited discordant disease with intensely hypermetabolic retroperitoneal, pelvic lymphadenopathy and hepatic disease which do not demonstrate significant PSMA overexpression, concerning for clonal selection and concomitant dedifferentiation/neuroendocrine differentiation. Correlate with upcoming biopsy results. 3. Multiple areas of hypermetabolic epidural and anterior paravertebral/soft tissue involvement for example within the L5 and L3 vertebral bodies. In the setting of patient's reported right lower extremity weakness, An MRI is recommended to evaluate for cord compression. 4. New mildly distended loops of fluid filled small bowel without discrete transition point may represent atypical ileus. 5. Chronic obstructive left hydroureteronephrosis with transition point in the upper abdomen with minimally functional left kidney. The critical results were discussed with Dr. Nima Burgos the by dictating physician approximately 2:04 PM on 10/23/2024. Dictated by: Ankit Alba M.D. The radiology attending physician has personally reviewed this study, and had reviewed and/or edited this written report and agrees with it. Electronically signed by: Mendoza Quinn M.D. Narrative 10/23/2024 2:30 PM CDT EXAMINATION: TUMOR FDG-PET/CT IMAGING DATE OF STUDY: 10/23/2024 SCANNER: [facility] N PET Vision (NV1). This is a high-resolution scanner, which can result in higher SUVs (and even detection of previously unrecognized small lesions) compared to older scanners. RADIOPHARMACEUTICAL: 15.8 mCi F-18 Fluorodeoxyglucose (FDG) i.v. Injection site: Left antecubital fossa HISTORY: 79-year-old man with prostate cancer diagnosed on 06/30/2021. Do 10 adenocarcinoma with seminal vesicle invasion status post prostatectomy 06/30/2021, with bone metastases, with progression of multiple and therapy, currently on Cabazitaxel (started 02/07/2024) which initially responded then had PSA progression. The most recently obtained PSA on 10/16/2024 is 250 ng/mL, increased from 129 on 06/26/2024. Recent PSMA PET/CT demonstrated non-avid nodes. Left retroperitoneal martha conglomerate biopsy via sonographic guidance was performed 10/22/2024, pathology is pending. The study is requested for restaging of documented biochemically recurrent prostate cancer. Subsequent treatment strategy. TECHNIQUE: The patient's fasting blood glucose level, measured by glucometer before injection of FDG, was 116 mg/dL. After intravenous administration of FDG, noncontrast CT images were obtained for attenuation correction and for fusion with emission PET images to allow for anatomical localization of PET findings. Emission PET images were then obtained. The study was interpreted on the [employer] workstation. The mean liver SUV (reported for vendor quality supervisor purposes) is 0.9.. The lower limit of normal for vendor quality supervisor is 1.5. The total scanned area was skull base to proximal thighs. Images of the body were obtained starting 50 minutes after injection of tracer. All reported SUVs are maximum SUVs, unless otherwise specified. COMPARISON: 10/22/2024, marked 2024, 09/15/2021. DESCRIPTORS OF LESION FDG AVIDITY: Minimal: <= blood pool Mild: > blood pool and <= liver Moderate: > liver and <= 2x SUVmax liver Moderate to marked: >2x SUVmax liver and <= 3x SUVmax liver Marked: > 3x SUVmax liver FINDINGS: Patchy marked uptake throughout nearly the entirety of the axial and appendicular skeleton. While a background of this uptake is likely in part due to patient's severe pancytopenia, there are innumerable heterogeneous/uneven markedly FDG avid lesions. Although the majority majority of these lesions are concordant, there are scattered soft tissue lesions which are markedly FDG avid and only mildly PSMA overexpressing. index lesions include * lytic/destructive soft tissue sternal lesion measuring 2.4 x 3.2 cm, previously 2.4 x 2.8 cm (SUV 26.1 on image 108). * markedly FDG avid sclerotic right femoral neck/intertrochanteric mass in the left femur (SUV 30.1). Within the osseous system, there is no clear PSMA negative, FDG-positive lesion. * L3 vertebral body lytic/sclerotic lesion with moderately FDG avid soft tissue involving the Vertebral/retroperitoneal space (image 202). Activity extends to the posterior elements on both sides with a pathologic fracture of the left transverse process. Additionally, there is activity involving the left pedicle which appears to extend into the dorsal epidural space (image 211). * L5 holovertebral lesion demonstrates similar characteristics to the above with hypermetabolic dorsal epidural soft tissue (image 228). * New or increased compression deformities of T9-T12, the most significant involving T10 with approximately 40% height loss, no osseous retropulsion. There is bilateral temporomandibular joint uptake with expanded sclerotic lesions. Generalized sink effect with little activity in the liver, spleen and brain. Atrophic left kidney without significant cortical activity, likely in the setting of chronic obstructive hydronephrosis and atrophy. Widespread markedly FDG avid lymphadenopathy involving the pelvis and retroperitoneum, most notably involving the inguinal, external iliac, left greater than right internal iliac, obturator, periaortic stations. An index lesion is a centrally necrotic left para-aortic 3.8 x 3.2 cm martha conglomerate, previously measuring 4.0 x 3.3 cm (SUV 32, image 2021) which extends into the common iliac station. This conglomerate do not demonstrate any significant tracer avidity on prior PSMA PET/CT. Another example is a markedly FDG avid left external iliac node measuring 1.8 x 1.3 cm, previously same (SUV 26, image 260). Numerous markedly FDG avid lymph nodes throughout the mediastinum, both hilum, right supraclavicular, right level 5, left levels 1 2 and 3. These lesions demonstrated marked hypermetabolism with only mild to moderate PSMA overexpression. There are greater than 5 hypermetabolic liver lesions without correlate on recent PSMA PET/CT. Index lesions include a right hepatic dome lesion (SUV 6.5, image 157) and a conglomerate of lesions within hepatic segment 6 (image 200). Additional CT findings: Moderate stable bilateral pleural effusions with subtotal atelectasis of both lower lobes. Heart size is not changed. Small cardial effusion. Extensive groundglass and smooth interlobular septal thickening can be seen in the setting of pulmonary edema. Unchanged hepatic contour. Gallbladder is minimally distended, possibly due to fasting state. Atrophic left kidney with severe left hydroureter with transition point in the mid hemiabdomen, at the level of L3. Generalized mesenteric edema. There is new elevation of multiple loops of bowel in the pelvis without clear transition point. Presacral edema. The transverse colon is minimally distended. Rectal wall thickening may be a sequela of chronic radiation proctitis. Asymmetric activity within the region of the left anterior scrotal wall. There is moderate to marked thickening of the 2nd portion of the duodenum of submucosal edema. Numerous mesenteric nodes do not demonstrate significant hypermetabolism. Procedure Note Mendoza Quinn MD - 10/23/2024 EXAMINATION: TUMOR FDG-PET/CT IMAGING DATE OF STUDY: 10/23/2024 SCANNER: [facility] [employer] (NV1). This is a high-resolution scanner, which can result in higher SUVs (and even detection of previously unrecognized small lesions) compared to older scanners. RADIOPHARMACEUTICAL: 15.8 mCi F-18 Fluorodeoxyglucose (FDG) i.v. Injection site: Left antecubital fossa HISTORY: 79-year-old man with prostate cancer diagnosed on 06/30/2021. Do 10 adenocarcinoma with seminal vesicle invasion status post prostatectomy 06/30/2021, with bone metastases, with progression of multiple and therapy, currently on Cabazitaxel (started 02/07/2024) which initially responded then had PSA progression. The most recently obtained PSA on 10/16/2024 is 250 ng/mL, increased from 129 on 06/26/2024. Recent PSMA PET/CT demonstrated non-avid nodes. Left retroperitoneal martha conglomerate biopsy via sonographic guidance was performed 10/22/2024, pathology is pending. The study is requested for restaging of documented biochemically recurrent prostate cancer. Subsequent treatment strategy. TECHNIQUE: The patient's fasting blood glucose level, measured by glucometer before injection of FDG, was 116 mg/dL. After intravenous administration of FDG, noncontrast CT images were obtained for attenuation correction and for fusion with emission PET images to allow for anatomical localization of PET findings. Emission PET images were then obtained. The study was interpreted on the [employer] workstation. The mean liver SUV (reported for vendor quality supervisor purposes) is 0.9.. The lower limit of normal for vendor quality supervisor is 1.5. The total scanned area was skull base to proximal thighs. Images of the body were obtained starting 50 minutes after injection of tracer. All reported SUVs are maximum SUVs, unless otherwise specified. COMPARISON: 10/22/2024, marked 2024, 09/15/2021. DESCRIPTORS OF LESION FDG AVIDITY: Minimal: <= blood pool Mild: > blood pool and <= liver Moderate: > liver and <= 2x SUVmax liver Moderate to marked: >2x SUVmax liver and <= 3x SUVmax liver Marked: > 3x SUVmax liver FINDINGS: Patchy marked uptake throughout nearly the entirety of the axial and appendicular skeleton. While a background of this uptake is likely in part due to patient's severe pancytopenia, there are innumerable heterogeneous/uneven markedly FDG avid lesions. Although the majority majority of these lesions are concordant, there are scattered soft tissue lesions which are markedly FDG avid and only mildly PSMA overexpressing. index lesions include * lytic/destructive soft tissue sternal lesion measuring 2.4 x 3.2 cm, previously 2.4 x 2.8 cm (SUV 26.1 on image 108). * markedly FDG avid sclerotic right femoral neck/intertrochanteric mass in the left femur (SUV 30.1). Within the osseous system, there is no clear PSMA negative, FDG-positive lesion. * L3 vertebral body lytic/sclerotic lesion with moderately FDG avid soft tissue involving the Vertebral/retroperitoneal space (image 202). Activity extends to the posterior elements on both sides with a pathologic fracture of the left transverse process. Additionally, there is activity involving the left pedicle which appears to extend into the dorsal epidural space (image 211). * L5 holovertebral lesion demonstrates similar characteristics to the above with hypermetabolic dorsal epidural soft tissue (image 228). * New or increased compression deformities of T9-T12, the most significant involving T10 with approximately 40% height loss, no osseous retropulsion. There is bilateral temporomandibular joint uptake with expanded sclerotic lesions. Generalized sink effect with little activity in the liver, spleen and brain. Atrophic left kidney without significant cortical activity, likely in the setting of chronic obstructive hydronephrosis and atrophy. Widespread markedly FDG avid lymphadenopathy involving the pelvis and retroperitoneum, most notably involving the inguinal, external iliac, left greater than right internal iliac, obturator, periaortic stations. An index lesion is a centrally necrotic left para-aortic 3.8 x 3.2 cm martha conglomerate, previously measuring 4.0 x 3.3 cm (SUV 32, image 2021) which extends into the common iliac station. This conglomerate do not demonstrate any significant tracer avidity on prior PSMA PET/CT. Another example is a markedly FDG avid left external iliac node measuring 1.8 x 1.3 cm, previously same (SUV 26, image 260). Numerous markedly FDG avid lymph nodes throughout the mediastinum, both hilum, right supraclavicular, right level 5, left levels 1 2 and 3. These lesions demonstrated marked hypermetabolism with only mild to moderate PSMA overexpression. There are greater than 5 hypermetabolic liver lesions without correlate on recent PSMA PET/CT. Index lesions include a right hepatic dome lesion (SUV 6.5, image 157) and a conglomerate of lesions within hepatic segment 6 (image 200). Additional CT findings: Moderate stable bilateral pleural effusions with subtotal atelectasis of both lower lobes. Heart size is not changed. Small cardial effusion. Extensive groundglass and smooth interlobular septal thickening can be seen in the setting of pulmonary edema. Unchanged hepatic contour. Gallbladder is minimally distended, possibly due to fasting state. Atrophic left kidney with severe left hydroureter with transition point in the mid hemiabdomen, at the level of L3. Generalized mesenteric edema. There is new elevation of multiple loops of bowel in the pelvis without clear transition point. Presacral edema. The transverse colon is minimally distended. Rectal wall thickening may be a sequela of chronic radiation proctitis. Asymmetric activity within the region of the left anterior scrotal wall. There is moderate to marked thickening of the 2nd portion of the duodenum of submucosal edema. Numerous mesenteric nodes do not demonstrate significant hypermetabolism. IMPRESSION: 1. Widespread concordantly hypermetabolic and PSMA overexpressing osseous metastatic disease involving nearly the entirety of the axial appendicular skeleton with scattered lesions, for example in the right sternomanubrial junction demonstrate cortical breakthrough and soft tissue components. 2. More limited discordant disease with intensely hypermetabolic retroperitoneal, pelvic lymphadenopathy and hepatic disease which do not demonstrate significant PSMA overexpression, concerning for clonal selection and concomitant dedifferentiation/neuroendocrine differentiation. Correlate with upcoming biopsy results. 3. Multiple areas of hypermetabolic epidural and anterior paravertebral/soft tissue involvement for example within the L5 and L3 vertebral bodies. In the setting of patient's reported right lower extremity weakness, An MRI is recommended to evaluate for cord compression. 4. New mildly distended loops of fluid filled small bowel without discrete transition point may represent atypical ileus. 5. Chronic obstructive left hydroureteronephrosis with transition point in the upper abdomen with minimally functional left kidney. The critical results were discussed with Dr. Nima Burgos the by dictating physician approximately 2:04 PM on 10/23/2024. Dictated by: Ankit Alba M.D. The radiology attending physician has personally reviewed this study, and had reviewed and/or edited this written report and agrees with it. Electronically signed by: Mendoza Quinn M.D. [facility] CONTI IM PET PROCEDURES Final Result * eGFR (10/23/2024 12:31 AM CDT) eGFR 89 >=60 mL/min/1. 73 m2 Comment: Interpretive Data [...] interpretive data was last reviewed 2021. Blood 10/23/2024 12:3 1 AM CDT 10/23/2024 12:40 AM CDT us Young Thapa MD LAB BLOOD ORDERABLES Carina gardner Result [facility] [place] [address] * (ABNORMAL) Differential, auto (10/23/2024 12:31 AM CDT) Pathologist [facility] Neutrophil abs 6.52(H) 1.50 - 6.50 K/cumm Imm gran abs 0.16(H) 0.00 - 0.10 K/cumm [facility] Lymphocyte abs 0.98 0.80 - 3.30 K/cumm [facility] Monocyte abs 0.69 0.20 - 0.80 K/cumm [facility] Eosinophil abs 0.20 0.00 - 0.50 K/cumm [facility] Basophil abs 0.10 0.00 - 0.10 K/cumm [facility] Neutrophil pct 75.4 % [facility] Comment: Interpretive Data Percent cell count reference ranges are not reported, since discordance with absolute values may lead to misinterpretation of CBC data. Current Interpretive Data was last revised on 2017. Imm gran pct 1.8 % [facility] Comment: Interpretive Data Percent cell count reference ranges are not reported, since discordance with absolute values may lead to misinterpretation of CBC data. Current Interpretive Data was last revised on 2017. Lymphocyte pct 11.3 % [facility] Comment: Interpretive Data Percent cell count reference ranges are not reported, since discordance with absolute values may lead to misinterpretation of CBC data. Current Interpretive Data was last revised on 2017. Monocyte pct 8.0 % [facility] Comment: Interpretive Data Percent cell count reference ranges are not reported, since discordance with absolute values may lead to misinterpretation of CBC data. Current Interpretive Data was last revised on 2017. Eosinophil pct 2.3 % [facility] Comment: Interpretive Data Percent cell count reference ranges are not reported, since discordance with absolute values may lead to misinterpretation of CBC data. Current Interpretive Data was last revised on 2017. Basophil pct 1.2 % [facility] Comment: Interpretive Data Percent cell count reference ranges are not reported, since discordance with absolute values may lead to misinterpretation of CBC data. Current Interpretive Data was last revised on 2017. Blood 10/23/2024 12:3 1 AM CDT 10/23/2024 12:40 AM CDT Young Thapa MD LAB BLOOD ORDERABLES Carina kendra Result [facility] [place] [address] * (ABNORMAL) CBC with auto differential (10/23/2024 12:31 AM CDT) WBC 8.65 3.80 - 9.90 K/cumm Hgb 8.7(L) 13.0 - 17.5 g/dL [facility] Hct 27.9(L) 38.9 - 50.3 % [facility] Plt 516(H) 150 - 400 K/cumm [facility] MPV 8.6(L) 9.1 - 12.3 fL [facility] RBC 3.48(L) 4.30 - 5.80 M/cumm [facility] MCV 80.2(L) 81.3 - 96.4 fL [facility] MCH 25.0(L) 27.1 - 33.3 pg [facility] MCHC 31.2(L) 32.3 - 35.7 g/dL [facility] RDW CV 21.4(H) 11.1 - 14.9 % [facility] RDW SD 60.9(H) 35.7 - 48.1 fL [facility] NRBC abs 0.07(H) 0.00 - 0.01 K/cumm [facility] Blood 10/23/2024 12:3 1 AM CDT 10/23/2024 12:40 AM CDT Young Thapa MD LAB BLOOD ORDERABLES Carina l Result Performing Organization Address [facility] de Phone Number [facility] [place] [address] * Type and screen (10/23/2024 12:31 AM CDT) ABO Rh O Positive Wilfred, indirect Negative [facility] Blood 10/23/2024 12:3 1 AM CDT 10/23/2024 12:38 AM CDT Narrative [facility] - 10/23/2024 2:18 AM CDT Has the patient had Daratumumab or Isatuximab in the past 6 months?->Unknown Young Thapa MD LAB BLOOD BANK TEST ORDER YANET Final Result Performing Organization Address [facility] de Phone Number [facility] [place] [address] * Uric acid (10/23/2024 12:31 AM CDT) Uric acid 3.8 3.0 - 8.0 mg/dL Blood 10/23/2024 12:3 1 AM CDT 10/23/2024 12:40 AM CDT Narrative [facility] - 10/23/2024 1:13 AM CDT Sunday and only. Morning draw. . Young Thapa MD LAB BLOOD ORDERABLES Carina l Result Performing Organization Address [facility] Co de Phone Number [facility] [place] [address] * (ABNORMAL) Phosphorus (10/23/2024 12:31 AM CDT) Phosphorus, pl 1.6(L) 2.3 - 4.5 mg/dL Blood 10/23/2024 12:3 1 AM CDT 10/23/2024 12:40 AM CDT Young Thapa MD LAB BLOOD ORDERABLES Carina l Result Performing Organization Address [facility] Co de Phone Number [facility] [place] [address] * (ABNORMAL) Lactate dehydrogenase (LD) (10/23/2024 12:31 AM CDT) [facility] Lactate dehydrogenase (LDH) 400(H) 100 - 250 Units/L Blood 10/23/2024 12:3 1 AM CDT 10/23/2024 12:40 AM CDT Narrative [facility] - 10/23/2024 1:13 AM CDT Sunday and only. Morning draw. Young Thapa MD LAB BLOOD ORDERABLES Carina l Result Performing Organization Address [facility] de Phone Number [facility] [place] [address] * (ABNORMAL) Comprehensive metabolic panel (10/23/2024 12:31 AM CDT) [facility] Sodium 143 135 - 145 mmol/L Potassium, pl 4.1 3.3 - 4.9 mmol/L [facility] Chloride 105 97 - 110 mmol/L [facility] CO2 23 22 - 32 mmol/L [facility] Anion gap 15 2 - 15 mmol/L [facility] BUN 12 6 - 25 mg/dL [facility] Creatinine 0.82 0.80 - 1.30 mg/dL [facility] Glucose 146 70 - 199 mg/dL [facility] Comment: Interpretive Data Fasting glucose >/= 126 [...] interpretive data was last revised 2022. Calcium 6.8(L) 8.5 - 10.3 mg/dL [facility] Bilirubin, total 0.2 0.1 - 1.2 mg/dL [facility] Protein, pl 6.6 6.5 - 8.5 g/dL [facility] Albumin 3.3(L) 3.5 - 5.0 g/dL [facility] Alk phos 456(H) 40 - 130 Units/L [facility] ALT 19 7 - 55 Units/L [facility] AST 57(H) 10 - 50 Units/L [facility] Blood 10/23/2024 12:3 1 AM CDT 10/23/2024 12:40 AM CDT Young Thapa MD LAB BLOOD ORDERABLES Carina l Result [facility] [place] [address] * Flow Leukemia/Lymphoma Tissue (10/22/2024 10:53 AM CDT) Morales Stain Test Completed Leukemia/Lymp addi Result See separate Surgical Pathology report. [facility] Tissue 10/22/2024 10:5 3 AM CDT 10/22/2024 2:22 PM CDT us Devon Carlin MD LAB PATHOLOGY ORDERABLES Final Result [facility] [place] [address] * Surgical pathology (10/22/2024 10:51 AM CDT) Tissue (Mass/Tumor/Lesion ) 10/22/2024 10:51 AM CDT Comment:US guided LT pelvic/ iliac mass core biopsy History of metastatic prostate cancer Tissue specimen (specimen) (Mass/Tumor/Lesion ) 10/22/2024 10:53 AM CDT Comment:US guided LT pelvic/ iliac mass core biopsy History of metastatic prostate cancer Rule out lymphoma Narrative PATHOLOGY [facility] - 10/27/2024 11:23 AM CDT EPIC results best viewed via link to PDF [facility] Surgical Pathology [facility], [place] [address] Note to Patients: This report may contain a detailed description of human tissue sent by a health care provider to the laboratory for pathologic evaluation. The content of this report is essential for diagnosis and may provide important critical findings. This information may be unfamiliar to patients to review without a medical professional present. It is advised that the patient review this report in the presence of a health care provider who can answer questions and explain the details. SURGICAL PATHOLOGY REPORT FINAL Patient Name: JARRELL STEEN Gender: M : 1945 (Age: 79) Address: [address] [place] [address] Hospital #: [id number] Taken:10/22/2024 Received:10/22/2024 Reported: 10/27/2024 Patient Type: [facility] Inpatient Service: Oncology Location: [place] [address] Physician(s): Terry Wilcox M.D. Diagnosis: A. 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 (see comment) B. Mass, left pelvic/iliac, flow cytometry: - Too few cells to perform flow cytometry analysis (see comment) jxs/10/24/2024 08:21 By this signature, I attest that the above diagnosis is based upon my personal examination of the slides(and/or other material indicated in the diagnosis). Alicia Pérez M.D., PH.D. Report Electronically Reviewed and Signed Out By Alicia Pérez M.D., PH.D. 10/27/2024 11:23:25 Microscopic Description and Comment: Immunohistochemistry (single antibody procedure with appropriate controls) was performed on Block A1 for further characterization. Tumor cells are strongly and diffusely positive for synaptophysin and chromogranin. NKX3.1 stain is not contributory. Flow cytometry: Specimen quality: paucicellular and reduced viability Flow cytometry was not performed due to insufficient viable cell counts. A Morales-Giemsa stained cytospin from the flow cytometry specimen was examined for internal vendor quality supervisor purposes. (ar) Amado Godoy M.D. History: The patient is a 79-year-old man with history of Jbphh 10 prostate cancer sp multiple hormonal therapies now with enlarging left retroperitoneal mass; rule out lymphoma. Operative procedure: Pelvic/iliac mass biopsy. Specimen(s) Received: A: Lt pelvic/iliac mass core biopsy B: Lt pelvic/iliac mass core biopsy Gross Description: Received in formalin, labeled with the patient s identifiers and left pelvic/iliac mass core biopsy and consists of four forde and red core(s) of soft tissue measuring 0.7-1.0 cm each in length x 0.1 cm in diameter. Labeled A1 to A2. Jar 0. sxst/10/22/2024 13:23 PA(s): Noelle Rangel FLOW CYTOMETRY: LEUKEMIA PANEL Specimen information: TISS Cell count: 0.01x10^6 Viability: 57 Too few cells to perform flow cytometric analysis By this signature, I attest that the above diagnosis is based upon my personal examination of the slides(and/or other material). Addenda/Procedures The performance characteristics of some immunohistochemical stains, fluorescence in-situ hybridization tests and immunophenotyping by flow cytometry cited in this report (if any) were determined by the Surgical Pathology and Flow Cytometry Departments at [facility] as part of an ongoing water quality control engineer program and in compliance with federally mandated regulations drawn from the Clinical Laboratory Improvement Act of 1988 (CLIA '88). Some of these tests rely on the use of analyte specific reagents and are subject to specific labeling requirements by the US Food and Drug Administration. Such diagnostic tests may only be performed in a facility that is certified by the Department of Health and Human Services as a high complexity laboratory under CLIA '88. The FDA has determined that such clearance or approval is not necessary. This test is used for clinical purposes. It should not be regarded as investigational or for research. Nevertheless, federal rules concerning the medical use of analyte specific reagents require that the following disclaimer be attached to the report: This test was developed and its performance characteristics determined by the Surgical Pathology and Flow Cytometry Departments of [facility]. It has not been cleared or approved by the U. S. Food and Drug Administration. IMAGES AND SCANNED DOCUMENTS, IF INCLUDED, ONLY VIEWABLE IN PDF VERSION OF REPORT Tammie CONTI LAB PATHOLOGY ORDERABLES Final Result PATHOLOGY [facility] 3rd Floor [place], [place] [phone] * US Guided Biopsy Abdomen Retroperitoneal (10/22/2024 10:40 AM CDT) Anatomical Region Laterality Modality Abdomen N/A Computed Tomogra phy 10/22/2024 11:5 0 AM CDT Impressions 10/22/2024 3:46 PM CDT 1. Successful ultrasound-guided core needle biopsy of left retroperitoneal mass. 2. Please see separate Surgical Pathology results for final interpretation. Dictated by: Johnny Goins MD The radiology attending physician has personally reviewed this study, and had reviewed and/or edited this written report and agrees with it. Electronically signed by: Leodan Jean-Baptiste M.D. Narrative 10/22/2024 3:46 PM CDT EXAMINATION: ULTRASOUND-GUIDED CORE BIOPSY HISTORY: 79-year-old male with metastatic prostate cancer and enlarging left retroperitoneal mass. COMPARISON: CT 10/10/2024; CT 2024 FINDINGS: Initial sonographic images demonstrate adequate displacement of multiple loops of bowel with a hypoechoic, irregular mass anterior to the left iliac vasculature. TECHNIQUE: The procedure for ultrasound-guided core biopsy was explained to and discussed with the patient. Risks were explained to include, but not be limited to, hemorrhage, infection, injury to adjacent organs, non-diagnostic specimen and adverse reaction to medications administered. The patient voiced understanding and wished to proceed and signed the consent form. PROCEDURAL SEDATION: Procedural sedation was administered under the attending physician's direction and continuous monitoring by a trained nurse specialist who was independent from those actually performing the procedure. Total monitored sedation time was 22 minutes. CORE BIOPSY: The lesion was located in the left hemiabdomen and measured 3.0 cm x 2.3 cm x 2.9 cm. An appropriate site was localized for core biopsy. The patient's overlying skin was prepped and draped in the usual sterile fashion. Local anesthesia was achieved via subcutaneous and deep administration with 10 mL of Lidocaine 1%. Under realtime ultrasound guidance, 6 passes were made with an 18 gauge BioPince core biopsy needle, 1 cm throw, with the use of a 17 gauge introducer needle. The core specimens were placed in formalin and RPMI and submitted to the tank storage supervisor service for delivery to Surgical Pathology. No tract embolization was performed. The patient's skin was cleaned and dressed. The patient tolerated the entire procedure well without immediate complications. Dr. Leodan Jean-Baptiste M.D., the attending radiologist, was present from the beginning to the end of the procedure. Dr. Leodan Jean-Baptiste M.D. performed the biopsy. Procedure Note Leodan Jean-Baptiste MD - 10/22/2024 EXAMINATION: ULTRASOUND-GUIDED CORE BIOPSY HISTORY: 79-year-old male with metastatic prostate cancer and enlarging left retroperitoneal mass. COMPARISON: CT 10/10/2024; CT 2024 FINDINGS: Initial sonographic images demonstrate adequate displacement of multiple loops of bowel with a hypoechoic, irregular mass anterior to the left iliac vasculature. TECHNIQUE: The procedure for ultrasound-guided core biopsy was explained to and discussed with the patient. Risks were explained to include, but not be limited to, hemorrhage, infection, injury to adjacent organs, non-diagnostic specimen and adverse reaction to medications administered. The patient voiced understanding and wished to proceed and signed the consent form. PROCEDURAL SEDATION: Procedural sedation was administered under the attending physician's direction and continuous monitoring by a trained nurse specialist who was independent from those actually performing the procedure. Total monitored sedation time was 22 minutes. CORE BIOPSY: The lesion was located in the left hemiabdomen and measured 3.0 cm x 2.3 cm x 2.9 cm. An appropriate site was localized for core biopsy. The patient's overlying skin was prepped and draped in the usual sterile fashion. Local anesthesia was achieved via subcutaneous and deep administration with 10 mL of Lidocaine 1%. Under realtime ultrasound guidance, 6 passes were made with an 18 gauge BioPince core biopsy needle, 1 cm throw, with the use of a 17 gauge introducer needle. The core specimens were placed in formalin and RPMI and submitted to the tank storage supervisor service for delivery to Surgical Pathology. No tract embolization was performed. The patient's skin was cleaned and dressed. The patient tolerated the entire procedure well without immediate complications. Dr. Leodan Jean-Baptiste M.D., the attending radiologist, was present from the beginning to the end of the procedure. Dr. Leodan Jean-Baptiste M.D. performed the biopsy. IMPRESSION: 1. Successful ultrasound-guided core needle biopsy of left retroperitoneal mass. 2. Please see separate Surgical Pathology results for final interpretation. Dictated by: Johnny Goins MD The radiology attending physician has personally reviewed this study, and had reviewed and/or edited this written report and agrees with it. Electronically signed by: Leodan Jean-Baptiste M.D. us Tammie CONTI IMG US PROCEDURES Final R esult * eGFR (10/22/2024 12:57 AM CDT) eGFR 84 >=60 mL/min/1. 73 m2 Comment: Interpretive Data [...] interpretive data was last reviewed 2021. Blood 10/22/2024 12:5 7 AM CDT 10/22/2024 1:11 AM CDT us Young Thapa MD LAB BLOOD ORDERABLES Carina gardner Result [facility] [place] [address] * (ABNORMAL) Differential, auto (10/22/2024 12:57 AM CDT) Neutrophil abs 5.62 1.50 - 6.50 K/cumm Imm gran abs 0.21(H) 0.00 - 0.10 K/cumm [facility] Lymphocyte abs 1.76 0.80 - 3.30 K/cumm [facility] Monocyte abs 0.66 0.20 - 0.80 K/cumm [facility] Eosinophil abs 0.16 0.00 - 0.50 K/cumm [facility] Basophil abs 0.06 0.00 - 0.10 K/cumm [facility] Neutrophil pct 66.3 % [facility] Comment: Interpretive Data Percent cell count reference ranges are not reported, since discordance with absolute values may lead to misinterpretation of CBC data. Current Interpretive Data was last revised on 2017. Imm gran pct 2.5 % [facility] Comment: Interpretive Data Percent cell count reference ranges are not reported, since discordance with absolute values may lead to misinterpretation of CBC data. Current Interpretive Data was last revised on 2017. Lymphocyte pct 20.8 % [facility] Comment: Interpretive Data Percent cell count reference ranges are not reported, since discordance with absolute values may lead to misinterpretation of CBC data. Current Interpretive Data was last revised on 2017. Monocyte pct 7.8 % [facility] Comment: Interpretive Data Percent cell count reference ranges are not reported, since discordance with absolute values may lead to misinterpretation of CBC data. Current Interpretive Data was last revised on 2017. Eosinophil pct 1.9 % [facility] Comment: Interpretive Data Percent cell count reference ranges are not reported, since discordance with absolute values may lead to misinterpretation of CBC data. Current Interpretive Data was last revised on 2017. Basophil pct 0.7 % [facility] Comment: Interpretive Data Percent cell count reference ranges are not reported, since discordance with absolute values may lead to misinterpretation of CBC data. Current Interpretive Data was last revised on 2017. Blood 10/22/2024 12:5 7 AM CDT 10/22/2024 1:11 AM CDT Young Thapa MD LAB BLOOD ORDERABLES Carina gardner Result [facility] [place] [address] * (ABNORMAL) CBC with auto differential (10/22/2024 12:57 AM CDT) [facility] WBC 8.47 3.80 - 9.90 K/cumm Hgb 8.5(L) 13.0 - 17.5 g/dL [facility] Hct 26.8(L) 38.9 - 50.3 % [facility] Plt 486(H) 150 - 400 K/cumm [facility] MPV 8.8(L) 9.1 - 12.3 fL [facility] RBC 3.30(L) 4.30 - 5.80 M/cumm [facility] MCV 81.2(L) 81.3 - 96.4 fL [facility] MCH 25.8(L) 27.1 - 33.3 pg [facility] MCHC 31.7(L) 32.3 - 35.7 g/dL [facility] RDW CV 20.7(H) 11.1 - 14.9 % [facility] RDW SD 60.2(H) 35.7 - 48.1 fL [facility] NRBC abs 0.12(H) 0.00 - 0.01 K/cumm [facility] Blood 10/22/2024 12:5 7 AM CDT 10/22/2024 1:11 AM CDT Young Thapa MD LAB BLOOD ORDERABLES Carina gardner Result [facility] [place] [address] * Protime-INR (10/22/2024 12:57 AM CDT) PT 12.3 9.7 - 13.0 sec INR 1.14 0.90 - 1.20 [facility] Comment: Interpretive data Oral anticoagulant therapeutic ranges: Venous thromboembolism prophylaxis or treatment: 2.0-3.0 CARDIOLOGY Standard range: 2.0-3.0 High-intensity range: 2.5-3.5 Refer to indication-specific guidelines for appropriate target ranges for prosthetic heart valve replacement. Current interpretive data was last revised on 2019. Blood 10/22/2024 12:5 7 AM CDT 10/22/2024 1:22 AM CDT Tammie CONTI LAB BLOOD ORDERABLES Carina l Result Performing Organization Address [facility] Co de Phone Number [facility] [place] [address] * (ABNORMAL) Phosphorus (10/22/2024 12:57 AM CDT) Pathologist [facility] Phosphorus, pl 1.2(L) 2.3 - 4.5 mg/dL Blood 10/22/2024 12:5 7 AM CDT 10/22/2024 1:11 AM CDT Young Thapa MD LAB BLOOD ORDERABLES Carina l Result Performing Organization Address [facility] Co de Phone Number [facility] [place] [address] * Magnesium (10/22/2024 12:57 AM CDT) [facility] Magnesium 2.2 1.4 - 2.5 mg/dL Blood 10/22/2024 12:5 7 AM CDT 10/22/2024 1:11 AM CDT Young Thapa MD LAB BLOOD ORDERABLES Carina l Result Performing Organization Address [facility] Co de Phone Number [facility] [place] [address] * (ABNORMAL) Comprehensive metabolic panel (10/22/2024 12:57 AM CDT) Sodium 143 135 - 145 mmol/L Potassium, pl 3.5 3.3 - 4.9 mmol/L [facility] Chloride 104 97 - 110 mmol/L [facility] CO2 24 22 - 32 mmol/L [facility] Anion gap 15 2 - 15 mmol/L [facility] BUN 13 6 - 25 mg/dL [facility] Creatinine 0.93 0.80 - 1.30 mg/dL [facility] Glucose 89 70 - 199 mg/dL [facility] Comment: Interpretive Data Fasting glucose >/= 126 [...] interpretive data was last revised 2022. Calcium 7.3(L) 8.5 - 10.3 mg/dL [facility] Bilirubin, total 0.2 0.1 - 1.2 mg/dL [facility] Protein, pl 6.7 6.5 - 8.5 g/dL [facility] Albumin 3.1(L) 3.5 - 5.0 g/dL [facility] Alk phos 434(H) 40 - 130 Units/L [facility] ALT 21 7 - 55 Units/L [facility] AST 53(H) 10 - 50 Units/L [facility] Blood 10/22/2024 12:5 7 AM CDT 10/22/2024 1:11 AM CDT us Young Thapa MD LAB BLOOD ORDERABLES Carina l Result [facility] [place] [place] [address] * Transfuse RBC (10/21/2024 10:12 PM CDT) Blood Tammie CONTI BLOOD TRANSFUSION ORDERAB LES Final Result Performing Organization Address [facility] [place] [address] * Type and screen (10/21/2024 12:52 PM CDT) ABO Rh O Positive Wilfred, indirect Negative [facility] Blood 10/21/2024 12:5 2 PM CDT 10/21/2024 1:05 PM CDT Narrative [facility] - 10/21/2024 2:01 PM CDT Has the patient had Daratumumab or Isatuximab in the past 6 months?->Unknown Tammie CONTI LAB BLOOD BANK TEST ORDER YANET Final Result Performing Organization Address City/[facility] [place] [address] * Prepare RBC: 1 Units (10/21/2024 11:32 AM CDT) Product code [id number] Unit Number [id number] [facility] Product Blood Type OPOS [facility] Dispense Status PRESUMED TRANSFUSED [facility] Blood 10/21/2024 11:3 2 AM CDT 10/21/2024 11:33 AM CDT Narrative [facility] - 10/22/2024 6:01 AM CDT Specify Procedure:->Lymph node biopsy on 10/22 Are special requirements needed? (All products are leukoreduced and CMV- safe)- >No Date required:-[id number] LRRBC # of [id number] Reasons:-Pre-op Hgb <8 g/dL} Tammie Tanner Reisias GALLITO BLOOD BANK PRODUCT ORDERA BLES Final Result NERY [facility] [place] [address] * TRANSTHORACIC ECHO (TTE) COMPLETE W DOPPLER/CF W CONTRAST (10/21/2024 8:53 AM CDT) Anatomical Region Laterality Modality Ultrasound 10/21/2024 7:34 AM CDT Narrative 10/21/2024 10:28 AM CDT [facility] [place] [address] Transthoracic Echocardiographic Report Patient Name: JARRELL STEEN : 1945 (79y 5m) Gender: M Study Date: 10/21/2024 07:34:01 Ht(Inch): 66 Wt(Lb): 149.91 BSA: 1.78 Corrective Therapist: Kodi Medina RDCS Location: ED4-09 Order Provider: YOUNG THAPA Heart Rate: 81 BMI: 24.19 BP: 147 / 64 Ref Provider: YOUNG THAPA PROCEDURES: Echocardiographic Report: Transthoracic complete echo with strain imaging and contrast, 2D, spectral and tissue Doppler, color flow Doppler, M-mode. Contrast: Contrast Enhancement was Employed: After initial imaging due to sub- optimal quality related to co-morbidity defined by patient's body habitus. 0.4 ml Optison Administered, (2.6 ml wasted). INDICATIONS: New volume overload, elevated BNP, eval cardiac function. CONCLUSIONS: 1. Normal left ventricular size based on volume index. Concentric LV hypertrophy. Normal left ventricular systolic function. The Ejection Fraction (Morrison's) is measured at 71 %. Normal diastolic function. The average global longitudinal strain is normal. The LV global strain is: -18.2 %. No left ventricular thrombus visualized. 2. There are no regional wall motion abnormalities. 3. Normal right ventricular size. Normal right ventricular systolic function. 4. Mildly dilated left atrium. 5. Trace aortic insufficiency. 6. Trace tricuspid insufficiency with inadequate jet to estimate pulmonary artery systolic pressure. 7. Pulmonic valve not well visualized but no pulmonic insufficiency or stenosis by Doppler study. 8. Normal sized inferior vena cava. 9. Mildly dilated aortic root and ascending aorta when indexed to body surface area. 10. Physiologic pericardial effusion. ATTESTATION: I have personally reviewed and interpreted this study without fellow or resident. - DISCLAIMER: The study images and the final report will be retained in the patient chart by the Echo Laboratory for the legally required time period. This chart constitutes the legal record of any testing performed. FINDINGS: Left Ventricle: Normal left ventricular size based on volume index. Concentric LV hypertrophy. Normal left ventricular systolic function. The Ejection Fraction (Morrison's) is measured at 71 %. Normal diastolic function. The average global longitudinal strain is normal. The LV global strain is: -18.2 %. No left ventricular thrombus visualized. Regional Wall Motion: There are no regional wall motion abnormalities. Right Ventricle: Normal right ventricular size. Normal right ventricular systolic function. The right ventricular strain is more negative than -17%. Left Atrium: Mildly dilated left atrium. Right Atrium: Right atrial dilatation. Mitral Valve: Normal mitral valve structure. No mitral regurgitation. No stenosis present. Aortic Valve: Normal trileaflet aortic valve. Trace aortic regurgitation. No aortic valve stenosis. The mean transaortic gradient is 5 mmHg. The aortic valve area by the continuity equation (using VTI) is 2.88 cm2. Aortic valve dimensionless index is 0.92. Tricuspid Valve: Normal tricuspid valve structure. Trace tricuspid regurgitation. No tricuspid valve stenosis. No estimation of pulmonary artery systolic pressure due to inadequate tricuspid regurgitation jet. Pulmonic Valve: The pulmonic valve is not well visualized due to poor acoustic windows. No pulmonic regurgitation. No pulmonic valve stenosis present. Pericardium: Physiologic pericardial effusion. Aorta: Dilation of the aortic root when indexed. Dilation of the ascending aorta when indexed. IVC: IVC is normal in size. MEASUREMENTS: 2D/MM Value Range Doppler Value Range LVIDd 2D 5.29 cm [ 4.20 - 5.80 ] AV Peak Leon 1.5 m/s [ 1.0 - 1.7 ] LVIDs 2D 3.12 cm [ 2.50 - 4.00 ] AV Peak PG 9.00 mmHg IVSd 2D 1.17 cm [ 0.60 - 1.00 ] AV Mean PG 5 mmHg LVPWd 2D 1.19 cm [ 0.60 - 1.00 ] AV VTI 31.0 cm LV Thickness Ratio 1.0 LVOT Peak Leon 1.4 m/s [ 0.7 - 1.1 ] LV FS 2D 41.07 % [ 25.00 - 43.00 ] LVOT Peak PG 7.84 mmHg LV Mass 2D 254.66 g LVOT Mean PG 4 mmHg LV Mass Index 2D 143.07 g/m2 LVOT VTI 28.4 cm RWT 0.45 LVOT Diam 2.00 cm EDV Mod BP 128.40 ml [ 62.00 - 150.00 ] MABEL VTI 2.88 cm2 LV EDV Index 72.13 ml/m2 LVOT/AV VTI 0.92 - Dimensionless index (DVI) ESV Mod BP 36.82 ml [ 21.00 - 61.00 ] AI Peak Leon 4.4 m/s EF Mod BP 71 % [ 52 - 72 ] AI Peak PG 80 mmHg LV GLS -18.2 % [ -25.0 - -18.0 ] AI Decel Time 1407.53 sec LA Length 4C 5.67 cm AI Decel Dixon 3.38 m/s2 LA Length 2C 4.36 cm AI PHT 408.18 msec LA Volume BP 67.30 ml MV E Peak Leon 0.7 m/s [ 0.6 - 1.3 ] LA Volume Index 37.81 ml/m2 [ 16.00 - 34.00 ] MV A Peak Leon 0.8 m/s [ 1.0 - 1.2 ] RV Base Dimen 2D 4.2 cm [ 2.5 - 4.2 ] MV E/A 1.0 ratio [ 0.8 - 1.5 ] TAPSE 2.88 cm [ 1.71 - 5.00 ] MV Decel Time 234.39 msec [ 104.00 - 258.00 ] RA Volume 68.06 ml Med E` Leon 10.4 cm/sec [ 8.0 - 25.0 ] RA Volume Index 38.24 ml/m2 Lat E` Leon 13.6 cm/sec [ 10.0 - 25.0 ] AoR Diam 2D 3.76 cm [ 3.10 - 3.70 ] Average E/E` 5.83 Ao Root Index 2.11 cm/m2 [ 1.00 - 2.00 ] RV S` 21.57 cm/sec Asc Ao Diam 2D 3.40 cm TR Peak Leon 2.6 m/s [ 1.0 - 2.8 ] Asc Ao Index 1.91 cm/m2 TR Peak PG 27.0 mmHg Electronically Signed By: Devon Frank MD 10/21/2024 10:27:49 CDT Procedure Note Devon Frank MD - 10/21/2024 [facility] Cardiac Diagnostic [place] [address] Transthoracic Echocardiographic Report Patient Name: JARRELL STEEN : 1945 (79y 5m) Gender: M Study Date: 10/21/2024 07:34:01 Ht(Inch): 66 Wt(Lb): 149.91 BSA: 1.78 Corrective Therapist: Kodi Medina RDCS Location: Order Provider:YOUNG THAPA Heart Rate: 81 BMI: 24.19 BP: 147 / 64 Ref Provider: YOUNG THAPA PROCEDURES: Echocardiographic Report: Transthoracic complete echo with strain imagingand contrast, 2D, spectral and tissue Doppler, color flow Doppler, M-mode. Contrast: Contrast Enhancement was Employed: After initial imaging due tosub- optimal quality related to co-morbidity defined by patient's body habitus. 0.4 mlOptison Administered, (2.6 ml wasted). INDICATIONS: New volume overload, elevated BNP, eval cardiac function. CONCLUSIONS: 1. Normal left ventricular size based on volume index. Concentric LVhypertrophy. Normal left ventricular systolic function. The Ejection Fraction (Morrison's) ismeasured at 71 %. Normal diastolic function. The average global longitudinal strain isnormal. The LV global strain is: -18.2 %. No left ventricular thrombus visualized. 2. There are no regional wall motion abnormalities. 3. Normal right ventricular size. Normal right ventricular systolicfunction. 4. Mildly dilated left atrium. 5. Trace aortic insufficiency. 6. Trace tricuspid insufficiency with inadequate jet to estimate pulmonaryartery systolic pressure. 7. Pulmonic valve not well visualized but no pulmonic insufficiency orstenosis by Doppler study. 8. Normal sized inferior vena cava. 9. Mildly dilated aortic root and ascending aorta when indexed to bodysurface area. 10. Physiologic pericardial effusion. ATTESTATION: I have personally reviewed and interpreted this study without fellow orresident. - DISCLAIMER: The study images and the final report will be retained in the patientchart by the Echo Laboratory for the legally required time period. This chart constitutesthe legal record of any testing performed. FINDINGS: Left Ventricle: Normal left ventricular size based on volume index.Concentric LV hypertrophy. Normal left ventricular systolic function. The EjectionFraction (Morrison's) is measured at 71 %. Normal diastolic function. The average globallongitudinal strain is normal. The LV global strain is: -18.2 %. No left ventricular thrombusvisualized. Regional Wall Motion: There are no regional wall motion abnormalities. Right Ventricle: Normal right ventricular size. Normal right ventricularsystolic function. The right ventricular strain is more negative than -17%. Left Atrium: Mildly dilated left atrium. Right Atrium: Right atrial dilatation. Mitral Valve: Normal mitral valve structure. No mitral regurgitation. Nostenosis present. Aortic Valve: Normal trileaflet aortic valve. Trace aortic regurgitation.No aortic valve stenosis. The mean transaortic gradient is 5 mmHg. The aortic valve areaby the continuity equation (using VTI) is 2.88 cm2. Aortic valve dimensionlessindex is 0.92. Tricuspid Valve: Normal tricuspid valve structure. Trace tricuspidregurgitation. No tricuspid valve stenosis. No estimation of pulmonary artery systolicpressure due to inadequate tricuspid regurgitation jet. Pulmonic Valve: The pulmonic valve is not well visualized due to pooracoustic windows. No pulmonic regurgitation. No pulmonic valve stenosis present. Pericardium: Physiologic pericardial effusion. Aorta: Dilation of the aortic root when indexed. Dilation of the ascendingaorta when indexed. IVC: IVC is normal in size. MEASUREMENTS: 2D/MM Value Range DopplerValue Range LVIDd 2D 5.29 cm [ 4.20 - 5.80 ] AV Peak Vel1.5 m/s [ 1.0 - 1.7 ] LVIDs 2D 3.12 cm [ 2.50 - 4.00 ] AV Peak PG9.00 mmHg IVSd 2D 1.17 cm [ 0.60 - 1.00 ] AV Mean PG5 mmHg LVPWd 2D 1.19 cm [ 0.60 - 1.00 ] AV VTI31.0 cm LV Thickness Ratio 1.0 LVOT Peak Vel1.4 m/s [ 0.7 - 1.1 ] LV FS 2D 41.07 % [ 25.00 - 43.00 ] LVOT Peak PG7.84 mmHg LV Mass 2D 254.66 g LVOT Mean PG4 mmHg LV Mass Index 2D 143.07 g/m2 LVOT VTI28.4 cm RWT 0.45 LVOT Diam2.00 cm EDV Mod BP 128.40 ml [ 62.00 - 150.00 ] MABEL VTI2.88 cm2 LV EDV Index 72.13 ml/m2 LVOT/AV VTI0.92 - Dimensionless index (DVI) ESV Mod BP 36.82 ml [ 21.00 - 61.00 ] AI Peak Vel4.4 m/s EF Mod BP 71 % [ 52 - 72 ] AI Peak PG80 mmHg LV GLS -18.2 % [ -25.0 - -18.0 ] AI Decel [id number] sec LA Length 4C 5.67 cm AI Decel Slope3.38 m/s2 LA Length 2C 4.36 cm AI YJN264.18 msec LA Volume BP 67.30 ml MV E Peak Vel0.7 m/s [ 0.6 - 1.3 ] LA Volume Index 37.81 ml/m2 [ 16.00 - 34.00 ] MV A Peak Vel0.8 m/s [ 1.0 - 1.2 ] RV Base Dimen 2D 4.2 cm [ 2.5 - 4.2 ] MV E/A1.0 ratio [ 0.8 - 1.5 ] TAPSE 2.88 cm [ 1.71 - 5.00 ] MV Decel Quvv813.39 msec [ 104.00 - 258.00 ] RA Volume 68.06 ml Med E` Vel10.4 cm/sec [ 8.0 - 25.0 ] RA Volume Index 38.24 ml/m2 Lat E` Vel13.6 cm/sec [ 10.0 - 25.0 ] AoR Diam 2D 3.76 cm [ 3.10 - 3.70 ] Average E/E`5.83 Ao Root Index 2.11 cm/m2 [ 1.00 - 2.00 ] RV S`21.57 cm/sec Asc Ao Diam 2D 3.40 cm TR Peak Vel2.6 m/s [ 1.0 - 2.8 ] Asc Ao Index 1.91 cm/m2 TR Peak PG27.0 mmHg Electronically Signed By: Devon Frank MD 10/21/2024 10:27:49 CDT Young Thapa MD CV ECHO PROCEDURES Final Result * eGFR (10/21/2024 5:43 AM CDT) eGFR 77 >=60 mL/min/1. 73 m2 Comment: Interpretive Data [...] interpretive data was last reviewed 2021. Blood 10/21/2024 5:43 AM CDT 10/21/2024 5:53 AM CDT us Young Thapa MD LAB BLOOD ORDERABLES Carina gardner Result [facility] [place] [address] * Differential, auto (10/21/2024 5:43 AM CDT) Neutrophil abs 5.9 1.5 - 6.5 K/cumm Imm gran abs 0.1 0.0 - 0.1 K/cumm [facility] Lymphocyte abs 1.6 0.8 - 3.3 K/cumm [facility] Monocyte abs 0.7 0.2 - 0.8 K/cumm [facility] Eosinophil abs 0.1 0.0 - 0.5 K/cumm [facility] Basophil abs 0.1 0.0 - 0.1 K/cumm [facility] Neutrophil pct 68.8 % [facility] Comment: Interpretive Data Percent cell count reference ranges are not reported, since discordance with absolute values may lead to misinterpretation of CBC data. Current Interpretive Data was last revised on 2017. Imm gran pct 1.4 % [facility] Comment: Interpretive Data Percent cell count reference ranges are not reported, since discordance with absolute values may lead to misinterpretation of CBC data. Current Interpretive Data was last revised on 2017. Lymphocyte pct 19.1 % [facility] Comment: Interpretive Data Percent cell count reference ranges are not reported, since discordance with absolute values may lead to misinterpretation of CBC data. Current Interpretive Data was last revised on 2017. Monocyte pct 8.5 % [facility] Comment: Interpretive Data Percent cell count reference ranges are not reported, since discordance with absolute values may lead to misinterpretation of CBC data. Current Interpretive Data was last revised on 2017. Eosinophil pct 1.4 % [facility] Comment: Interpretive Data Percent cell count reference ranges are not reported, since discordance with absolute values may lead to misinterpretation of CBC data. Current Interpretive Data was last revised on 2017. Basophil pct 0.8 % [facility] Comment: Interpretive Data Percent cell count reference ranges are not reported, since discordance with absolute values may lead to misinterpretation of CBC data. Current Interpretive Data was last revised on 2017. Blood 10/21/2024 5:43 AM CDT 10/21/2024 5:53 AM CDT Young Thapa MD LAB BLOOD ORDERABLES Carina gardner Result [facility] [place] [address] * (ABNORMAL) CBC with auto differential (10/21/2024 5:43 AM CDT) WBC 8.5 3.8 - 9.9 K/cumm Hgb 7.8(L) 13.0 - 17.5 g/dL [facility] Hct 25.1(L) 38.9 - 50.3 % [facility] Plt 572(H) 150 - 400 K/cumm [facility] MPV 8.5(L) 9.1 - 12.3 fL [facility] RBC 3.15(L) 4.30 - 5.80 M/cumm [facility] MCV 79.7(L) 81.3 - 96.4 fL [facility] MCH 24.8(L) 27.1 - 33.3 pg [facility] MCHC 31.1(L) 32.3 - 35.7 g/dL [facility] RDW CV 21.6(H) 11.1 - 14.9 % [facility] RDW SD 61.1(H) 35.7 - 48.1 fL [facility] NRBC abs 0.09(H) 0.00 - 0.01 K/cumm [facility] Blood 10/21/2024 5:43 AM CDT 10/21/2024 5:53 AM CDT Young Thapa MD LAB BLOOD ORDERABLES Carina l Result Performing Organization Address City/[facility] Co de Phone Number [facility] [place] [address] * (ABNORMAL) Phosphorus (10/21/2024 5:43 AM CDT) Pathologist [facility] Phosphorus, pl 1.3(L) 2.3 - 4.5 mg/dL Blood 10/21/2024 5:43 AM CDT 10/21/2024 5:53 AM CDT Young Thapa MD LAB BLOOD ORDERABLES Carina l Result Performing Organization Address [facility] Co de Phone Number [facility] [place] [address] * Magnesium (10/21/2024 5:43 AM CDT) Magnesium 2.3 1.4 - 2.5 mg/dL Blood 10/21/2024 5:43 AM CDT 10/21/2024 5:53 AM CDT Young Thapa MD LAB BLOOD ORDERABLES Carina l Result Performing Organization Address [facility] Co de Phone Number [facility] [place] [address] * (ABNORMAL) Comprehensive metabolic panel (10/21/2024 5:43 AM CDT) Sodium 142 135 - 145 mmol/L Potassium, pl 3.8 3.3 - 4.9 mmol/L [facility] Chloride 102 97 - 110 mmol/L [facility] CO2 26 22 - 32 mmol/L [facility] Anion gap 14 2 - 15 mmol/L [facility] BUN 16 6 - 25 mg/dL [facility] Creatinine 0.99 0.80 - 1.30 mg/dL [facility] Glucose 91 70 - 199 mg/dL [facility] Comment: Interpretive Data Fasting glucose >/= 126 [...] interpretive data was last revised 2022. Calcium 7.5(L) 8.5 - 10.3 mg/dL [facility] Bilirubin, total 0.4 0.1 - 1.2 mg/dL [facility] Protein, pl 6.7 6.5 - 8.5 g/dL [facility] Albumin 3.0(L) 3.5 - 5.0 g/dL [facility] Alk phos 423(H) 40 - 130 Units/L [facility] ALT 18 7 - 55 Units/L [facility] AST 34 10 - 50 Units/L [facility] Blood 10/21/2024 5:43 AM CDT 10/21/2024 5:53 AM CDT us Young Thapa MD LAB BLOOD ORDERABLES Carina gardner Result [facility] [place] [address] * POCT glucose (10/20/2024 6:35 PM CDT) [facility] Signature Glucose, POC 99 70 - 199 mg/dL Blood 10/20/2024 6:35 PM CDT 10/20/2024 6:35 PM CDT Devon Carlin MD LAB POCT ORDERABLES - DE VICE Final Result Performing Organization Address [facility] [place] [address] * POCT glucose (10/20/2024 2:41 PM CDT) Glucose, POC 106 70 - 199 mg/dL Blood 10/20/2024 2:41 PM CDT 10/20/2024 2:41 PM CDT us Devon Carlin MD LAB POCT ORDERABLES - DE VICE Final Result Performing Organization Address [facility] [place] [address] * POCT glucose (10/20/2024 10:39 AM CDT) Glucose, POC 117 70 - 199 mg/dL Blood 10/20/2024 10:3 9 AM CDT 10/20/2024 10:39 AM CDT Devon Carlin MD LAB POCT ORDERABLES - DE VICE Final Result Performing Organization Address [facility] [place] [address] * US Vein Duplex Lower Extremity Bilateral Complete (10/20/2024 8:43 AM CDT) Anatomical Region Laterality Modality Vascular Bilateral Ultrasound 10/20/2024 7:38 AM CDT Narrative 10/20/2024 9:33 AM CDT [facility] - Department of Vascular Surgery, Vascular Laboratory [address] [place] [id number] Lower Extremity Venous Ultrasound Report Patient Name: JARRELL STEEN : 1945 (79y 5m) Study Date: 10/20/2024 7:38:15 AM Gender: M Tech: Location: 2181 Ref Provider: MICHELLE HENDERSON Quality: Adequate Order Provider: MICHELLE HENDERSON PROCEDURES: Vascular Report: Venous Duplex imaging was performed bilaterally in the lower extremities. The common femoral, femoral, popliteal, posterior tibial, peroneal veins were evaluated for patency, spontaneity and phasicity with Doppler, compression and augmentation maneuvers. Great saphenous vein proximal at the junction was evaluated with compression maneuvers. INDICATIONS: Swelling lower extremity, bilateral. FINDINGS: Performing Corrective Therapist: Torrie Moody RVT. Bilateral: Venous Doppler signals in the bilateral lower extremity are within normal limits for spontaneity and phasicity and respond normally to augmentation maneuvers. No evidence of deep vein thrombus by duplex, proximal to the calf. CONCLUSIONS: 1. There is no evidence of acute deep vein thrombosis in the lower extremities bilaterally. Noninvasive venous studies cannot rule out isolated calf vein obstruction. HISTORY: AF, Cancer, DM2, Former smoker. PREVIOUS STUDIES: No previous studies for comparison. DISCLAIMER: The study images and the final report will be retained in the patient chart by the Vascular Laboratory for the legally required time period. This chart constitutes the legal record of any testing performed. ATTESTATION: I have reviewed and interpreted the pertinent images and measurements of this study. I attest to the conclusions in the final report that is provided above. Electronically Signed By: Patrick Woods MD [facility] [phone] 10/20/2024 8:52:38 AM CDT Procedure Note Patrick Woods MD - 10/20/2024 [facility] - Department of Vascular Surgery,Vascular Laboratory [address] [place] [address] Lower Extremity Venous Ultrasound Report Patient Name: JARRELL STEEN : 1945 (79y 5m) Study Date: 10/20/2024 7:38:15 AM Gender: M Tech: Location: 2181 Ref Provider: MICHELLE HENDERSON Quality: Adequate Order Provider: MICHELLE HENDERSON PROCEDURES: Vascular Report: Venous Duplex imaging was performed bilaterally in the lower extremities.The common femoral, femoral, popliteal, posterior tibial, peroneal veins wereevaluated for patency, spontaneity and phasicity with Doppler, compression and augmentationmaneuvers. Great saphenous vein proximal at the junction was evaluated with compressionmaneuvers. INDICATIONS: Swelling lower extremity, bilateral. FINDINGS: Performing Corrective Therapist: Torrie Moody RVT. Bilateral: Venous Doppler signals in the bilateral lower extremity are within normallimits for spontaneity and phasicity and respond normally to augmentation maneuvers.No evidence of deep vein thrombus by duplex, proximal to the calf. CONCLUSIONS: 1. There is no evidence of acute deep vein thrombosis in the lowerextremities bilaterally. Noninvasive venous studies cannot rule out isolated calf veinobstruction. HISTORY: AF, Cancer, DM2, Former smoker. PREVIOUS STUDIES: No previous studies for comparison. DISCLAIMER: The study images and the final report will be retained in the patientchart by the Vascular Laboratory for the legally required time period. This chartconstitutes the legal record of any testing performed. ATTESTATION: I have reviewed and interpreted the pertinent images and measurements ofthis study. I attest to the conclusions in the final report that is provided above. Electronically Signed By: Patrick Woods MD [facility] [phone] 10/20/2024 8:52:38 AM CDT us Michelle Henderson NP IMG US PROCEDURES Final Result * POCT glucose (10/20/2024 6:43 AM CDT) Glucose, POC 96 70 - 199 mg/dL Blood 10/20/2024 6:43 AM CDT 10/20/2024 6:43 AM CDT us Devon Carlin MD LAB POCT ORDERABLES - DE VICE Final Result Performing Organization Address City/State/[facility] Co de Phone Number [facility] [place] [address] * CT Pelvis WO Contrast (10/20/2024 4:25 AM CDT) Anatomical Region Laterality Modality Body N/A Computed Tomogra phy 10/20/2024 4:43 AM CDT Impressions 10/20/2024 10:12 AM CDT 1. Unchanged diffuse osseous metastatic disease of the pelvis without acute displaced pathologic fracture. 2. Left external iliac chain and retroperitoneal lymphadenopathy are not significant changed from recent PET/CT 10/10/2024. Dictated by: Belkis Baldwin MD The radiology attending physician has personally reviewed this study, and had reviewed and/or edited this written report and agrees with it. Electronically signed by: Mariela iWggins MD Narrative 10/20/2024 10:12 AM CDT EXAMINATION: Computed tomography of the pelvis without intravenous contrast HISTORY: Metastatic prostate cancer with right lower extremity weakness, concern for pathologic fracture TECHNIQUE: Transaxial computed tomographic images of the pelvis were obtained without intravenous contrast according to the standard protocol. COMPARISON: PET/CT 10/10/2024. FINDINGS: Diffuse osseous metastatic disease with mixed sclerotic and osseous lesions throughout the imaged pelvis, lower lumbar spine, and proximal femurs. No acute displaced fracture or dislocation. Linear lucencies in the bilateral acetabula (for example series 2 image 175 and 179) are favored to represent vascular channels, and less likely to represent symmetric nondisplaced fractures. There is no adjacent hematoma in in those regions. Mild osteoarthritis of both hips. Sacroiliac joint space is maintained. No significant soft tissue extension identified. Limited images of the pelvic viscera with normal caliber small and large bowel. Nondistended urinary bladder. Prostate gland is absent. No intraperitoneal free fluid or free air. Enlarged left external iliac chain lymph node and partially imaged retroperitoneal lymph nodes, unchanged from recent PET/CT. Procedure Note Freya Wiggins MD - 10/20/2024 EXAMINATION: Computed tomography of the pelvis without intravenous contrast HISTORY: Metastatic prostate cancer with right lower extremity weakness, concern for pathologic fracture TECHNIQUE: Transaxial computed tomographic images of the pelvis were obtained without intravenous contrast according to the standard protocol. COMPARISON: PET/CT 10/10/2024. FINDINGS: Diffuse osseous metastatic disease with mixed sclerotic and osseous lesions throughout the imaged pelvis, lower lumbar spine, and proximal femurs. No acute displaced fracture or dislocation. Linear lucencies in the bilateral acetabula (for example series 2 image 175 and 179) are favored to represent vascular channels, and less likely to represent symmetric nondisplaced fractures. There is no adjacent hematoma in in those regions. Mild osteoarthritis of both hips. Sacroiliac joint space is maintained. No significant soft tissue extension identified. Limited images of the pelvic viscera with normal caliber small and large bowel. Nondistended urinary bladder. Prostate gland is absent. No intraperitoneal free fluid or free air. Enlarged left external iliac chain lymph node and partially imaged retroperitoneal lymph nodes, unchanged from recent PET/CT. IMPRESSION: 1. Unchanged diffuse osseous metastatic disease of the pelvis without acute displaced pathologic fracture. 2. Left external iliac chain and retroperitoneal lymphadenopathy are not significant changed from recent PET/CT 10/10/2024. Dictated by: Belkis Baldwin MD The radiology attending physician has personally reviewed this study, and had reviewed and/or edited this written report and agrees with it. Electronically signed by: Mariela Wiggins MD us Young Thapa MD IMG CT PROCEDURES Final R esult * CT Lumbar Spine W Contrast (10/20/2024 4:25 AM CDT) Anatomical Region Laterality Modality Spine N/A Computed Tomogra phy 10/20/2024 5:26 AM CDT Impressions 10/20/2024 8:39 AM CDT 1. Diffuse osseous metastatic disease of the lumbar spine, not substantially changed from prior . 2. No CT evidence of acute fracture of the lumbar spine. Given the extent of osseous disease, evaluation for fracture is limited. 3. Incompletely imaged para-aortic lymphadenopathy, likely metastatic disease. Recommend correlation with prior PET/CT. Dictated by: Cristofer Meier MD The radiology attending physician has personally reviewed this study, and had reviewed and/or edited this written report and agrees with it. Electronically signed by: Sophia Sesay M.D. Narrative 10/20/2024 8:39 AM CDT EXAMINATION: CT of the lumbar spine with contrast HISTORY: Prostate cancer with osseous metastases, increasing falls. TECHNIQUE: CT of the lumbar spine was performed according to the standard protocol with intravenous contrast. Contrast information: 70 mL Optiray-350 IV COMPARISON: CT 2024. FINDINGS: There is diffuse mixed lytic-sclerotic attenuation of the entire lumbar spine, not substantially changed from CT 2024. Mild retrolisthesis of L2 on L3. There is no acute fracture. The vertebral bodies are normal in height without compression fractures. The intervertebral disk heights are normal. Incompletely imaged periaortic lymphadenopathy. No paravertebral soft tissue abnormality. Atherosclerosis of the abdominal aorta. There is no abnormal contrast enhancement. Partially imaged, grossly unchanged left hydronephrosis with cortical atrophy. The disks are normal in configuration. There is mild multilevel facet arthropathy. There is no high-grade neuroforaminal or spinal canal stenosis. Procedure Note Sophia Sesay MD - 10/20/2024 EXAMINATION: CT of the lumbar spine with contrast HISTORY: Prostate cancer with osseous metastases, increasing falls. TECHNIQUE: CT of the lumbar spine was performed according to the standard protocol with intravenous contrast. Contrast information: 70 mL Optiray-350 IV COMPARISON: CT 2024. FINDINGS: There is diffuse mixed lytic-sclerotic attenuation of the entire lumbar spine, not substantially changed from CT 2024. Mild retrolisthesis of L2 on L3. There is no acute fracture. The vertebral bodies are normal in height without compression fractures. The intervertebral disk heights are normal. Incompletely imaged periaortic lymphadenopathy. No paravertebral soft tissue abnormality. Atherosclerosis of the abdominal aorta. There is no abnormal contrast enhancement. Partially imaged, grossly unchanged left hydronephrosis with cortical atrophy. The disks are normal in configuration. There is mild multilevel facet arthropathy. There is no high-grade neuroforaminal or spinal canal stenosis. IMPRESSION: 1. Diffuse osseous metastatic disease of the lumbar spine, not substantially changed from prior . 2. No CT evidence of acute fracture of the lumbar spine. Given the extent of osseous disease, evaluation for fracture is limited. 3. Incompletely imaged para-aortic lymphadenopathy, likely metastatic disease. Recommend correlation with prior PET/CT. Dictated by: Cristofer Meier MD The radiology attending physician has personally reviewed this study, and had reviewed and/or edited this written report and agrees with it. Electronically signed by: Sophia Sesay M.D. us Young Thapa MD IM CT PROCEDURES Final R esult * POCT glucose (10/20/2024 2:23 AM CDT) Glucose, POC 106 70 - 199 mg/dL Blood 10/20/2024 2:23 AM CDT 10/20/2024 2:23 AM CDT us Devon Carlin MD LAB POCT ORDERABLES - DE VICE Final Result Performing Organization Address [facility] Co de Phone Number [facility] [place] [address] * Troponin I high-sensitivity 4-hour (10/19/2024 9:22 PM CDT) Trop I hs 16 <=35 ng/L Comment: Interpretive Data For further hscTnI resources including the diagnostic algorithm and an aid in interpretation, copy and paste this link: [email or web address].testcatalog.org/show/[email or web address] Current Interpretive Data last revised 2020. Trop I hs delta 0 ng/L [facility] Trop I hs interp Insignificant [facility] Blood 10/19/2024 9:22 PM CDT 10/19/2024 9:37 PM CDT us Aide Gallagher MD LAB BLOOD ORDERABLES Final Result Performing Organization Address [facility] Co de Phone Number [facility] [place] [address] * Urinalysis reflex to microscopic (10/19/2024 8:24 PM CDT) Color, ur Straw Yellow Clarity, ur Clear Clear [facility] Specific gravity, ur 1.016 1.003 - 1.030 [facility] pH, urine 7.0 [facility] Comment: Interpretive Data U rine pH is affected by diet, medications, systemic acid-base disturbances, and renal tubular function. pH may affect urinary stone formation. For example, urine pH below 6.0 may help reduce the tendency for calcium phosphate stones and pH greater than 6.0 may reduce the tendency for uric acid stone formation. Source: [employer] Current Interpretive Data was last revised on 2017 Protein, ur ql Trace Negative [facility] Glucose, ur ql Negative Negative [facility] Ketones, ur Negative Negative [facility] Bilirubin, ur Negative Negative [facility] Blood, ur Negative Negative [facility] Urobilinogen, ur <2.0 <2.0 mg/dL [facility] Nitrite, ur Negative Negative [facility] Leukocyte esterase, ur Negative Negative [facility] UA reflex comment Reflex conditions for microscopic UA not met. [facility] Urine 10/19/2024 8:24 PM CDT 10/19/2024 8:29 PM CDT us Sterling Mejias MD PhD LAB URINE ORDERABLE S Final Result Performing Organization Address [facility]/ZIP Co de Phone Number [facility] [place] [address] * POCT glucose (10/19/2024 7:32 PM CDT) Glucose, POC 113 70 - 199 mg/dL Blood 10/19/2024 7:32 PM CDT 10/19/2024 7:32 PM CDT Notinfile Unknown LAB POCT ORDERABLES - DEVICE F inal Result Performing Organization Address [facility] Co de Phone Number [facility] [place] [address] * Troponin I high-sensitivity 2-hour (10/19/2024 6:53 PM CDT) Trop I hs 19 <=35 ng/L Comment: Interpretive Data For further hscTnI resources including the diagnostic algorithm and an aid in interpretation, copy and paste this link: https://bjhlab.testcatalog.org/show/[email or web address] Current Interpretive Data last revised 2020. Trop I hs delta 3 ng/L [facility] Trop I hs interp Insignificant [facility] Blood 10/19/2024 6:53 PM CDT 10/19/2024 7:19 PM CDT Aide Gallagher MD LAB BLOOD ORDERABLES Final Result [facility] [place] [address] * XR Chest 1 View (10/19/2024 6:51 PM CDT) Anatomical Region Laterality Modality Body, Chest N/A Computed Radiogr aphy 10/19/2024 7:13 PM CDT Impressions 10/19/2024 8:35 PM CDT The current study is compared with the prior radiograph dated 12/18/[address] 2024. Mild bibasilar atelectasis. Small bilateral pleural effusions. No pneumothorax. Normal cardiomediastinal silhouette. Dictated by: Meena Blanco MD The radiology attending physician has personally reviewed this study, and had reviewed and/or edited this written report and agrees with it. Electronically signed by: Jose Cruz Ching MD, PHD Narrative 10/19/2024 8:35 PM CDT EXAMINATION: 1 view chest radiograph Procedure Note Jose Cruz Ching MD PhD - 10/19/2024 EXAMINATION: 1 view chest radiograph IMPRESSION: The current study is compared with the prior radiograph dated 12/18/[address] 2024. Mild bibasilar atelectasis. Small bilateral pleural effusions. No pneumothorax. Normal cardiomediastinal silhouette. Dictated by: Meena Blanco MD The radiology attending physician has personally reviewed this study, and had reviewed and/or edited this written report and agrees with it. Electronically signed by: Jose Cruz Ching MD, PHD us Domi Hernandez MD IMG XR PROCEDURES Fin al Result * Troponin I high-sensitivity series (baseline, 2hr, 4hr, 6hr) (10/19/2024 4:55 PM CDT) Trop I hs 16 <=35 ng/L Comment: Interpretive Data For further [facility] resources including the diagnostic algorithm and an aid in interpretation, copy and paste this link: [email or web address] Current Interpretive Data last revised 2020. Blood 10/19/2024 4:55 PM CDT 10/19/2024 5:03 PM CDT us Sterling Mejias MD PhD LAB BLOOD ORDERABLE S Final Result Performing Organization Address City/[facility]/ZIP Co de Phone Number NERY [facility] [place] [address] * eGFR (10/19/2024 4:55 PM CDT) eGFR 63 >=60 mL/min/1. 73 m2 Comment: [...] interpretive data was last reviewed 2021. Blood 10/19/2024 4:55 PM CDT 10/19/2024 5:03 PM CDT us Sterling Mejias MD PhD LAB BLOOD ORDERABLE S Final Result Performing Organization Address City/[facility]/ZIP Co de Phone Number [facility] [place] [address] * (ABNORMAL) Differential, auto (10/19/2024 4:55 PM CDT) Neutrophil abs 6.6(H) 1.5 - 6.5 K/cumm Imm gran abs 0.3(H) 0.0 - 0.1 K/cumm [facility] Lymphocyte abs 1.4 0.8 - 3.3 K/cumm [facility] Monocyte abs 0.9(H) 0.2 - 0.8 K/cumm [facility] Eosinophil abs 0.1 0.0 - 0.5 K/cumm [facility] Basophil abs 0.1 0.0 - 0.1 K/cumm [facility] Neutrophil pct 70.0 % [facility] Comment: Interpretive Data Percent cell count reference ranges are not reported, since discordance with absolute values may lead to misinterpretation of CBC data. Current Interpretive Data was last revised on 2017. Imm gran pct 3.1 % [facility] Comment: Interpretive Data Percent cell count reference ranges are not reported, since discordance with absolute values may lead to misinterpretation of CBC data. Current Interpretive Data was last revised on 2017. Lymphocyte pct 14.9 % [facility] Comment: Interpretive Data Percent cell count reference ranges are not reported, since discordance with absolute values may lead to misinterpretation of CBC data. Current Interpretive Data was last revised on 2017. Monocyte pct 9.7 % [facility] Comment: Interpretive Data Percent cell count reference ranges are not reported, since discordance with absolute values may lead to misinterpretation of CBC data. Current Interpretive Data was last revised on 2017. Eosinophil pct 1.5 % [facility] Comment: Interpretive Data Percent cell count reference ranges are not reported, since discordance with absolute values may lead to misinterpretation of CBC data. Current Interpretive Data was last revised on 2017. Basophil pct 0.8 % [facility] Comment: Interpretive Data Percent cell count reference ranges are not reported, since discordance with absolute values may lead to misinterpretation of CBC data. Current Interpretive Data was last revised on 2017. Blood 10/19/2024 4:55 PM CDT 10/19/2024 5:03 PM CDT Sterling Mejias MD PhD LAB BLOOD ORDERABLE S Final Result Performing Organization Address [facility]/ZIP Co de Phone Number [facility] [place] [address] * (ABNORMAL) Pro B-type natriuretic peptide (10/19/2024 4:55 PM CDT) NT-proBNP 2,279(H) <=450 pg/mL Comment: Interpretive Comments: A. Dyspnea in Acute Care Setting All Ages: < 300 pg/ml, acute heart failure unlikely. < 50 yrs: 300 - 450 pg/ml, further investigation warranted. > 450 pg/ml, acute heart failure likely. 50 - 74 yrs: 300 - 900 pg/ml, further investigation warranted. > 900 pg/ml, acute heart failure likely . > or = 75 yrs: 450 - 1800 pg/ml, further investigation warranted. > 1800 pg/ml, acute heart failure likely. B. Non-acute Setting < 75 yrs < 125 pg/ml, rules out heart failure. > or = 125 pg/ml, further investigation warranted. > or = 75 yrs < 450 pg/ml, rules out heart failure. > or = 450 pg/ml, further investigation warranted. - Knowledge of each individual patient's NT-proBNP range may be more useful than using similar cut-points for every patient. Please note that marked elevations in NT-proBNP levels may be observed in state other than Left Ventricular Congestive Failure, including: acute coronary syndromes, right heart strain/failure (including pulmonary embolism and cor pulmonale), critical illness, renal failure, as well as advanced age. - References: 1. Jay URENA et.al. Eur Heart J. 2006:27:330-337. 2. Jacquelin RW, Thom MAZARIEGOS. J. AM Martir Cardiol: Cardiovasc Imag. 2009;2: 216- 225. Interpretive Data Last Revised Date: 2018. Blood 10/19/2024 4:55 PM CDT 10/19/2024 5:03 PM CDT us Domi Hernandez MD LAB BLOOD ORDERABLES Final Result Performing Organization Address [facility] Co de Phone Number [facility] [place] [address] * (ABNORMAL) CBC with auto differential (10/19/2024 4:55 PM CDT) [facility] WBC 9.5 3.8 - 9.9 K/cumm Hgb 8.6(L) 13.0 - 17.5 g/dL [facility] Hct 27.9(L) 38.9 - 50.3 % [facility] Plt 606(H) 150 - 400 K/cumm [facility] MPV 8.6(L) 9.1 - 12.3 fL [facility] RBC 3.43(L) 4.30 - 5.80 M/cumm [facility] MCV 81.3 81.3 - 96.4 fL [facility] MCH 25.1(L) 27.1 - 33.3 pg [facility] MCHC 30.8(L) 32.3 - 35.7 g/dL [facility] RDW CV 21.2(H) 11.1 - 14.9 % [facility] RDW SD 61.5(H) 35.7 - 48.1 fL [facility] NRBC abs 0.15(H) 0.00 - 0.01 K/cumm [facility] Blood Venous blood specimen / Unknown 10/19/2024 4:55 PM CDT 10/19/2024 5:03 PM CDT us Sterling Mejias MD PhD LAB BLOOD ORDERABLE S Final Result [facility] [place] [address] * Lipase (10/19/2024 4:55 PM CDT) [facility] Lipase 35 10 - 99 Units/L Blood Venous blood specimen / Unknown 10/19/2024 4:55 PM CDT 10/19/2024 5:03 PM CDT us Sterling Mejias MD PhD LAB BLOOD ORDERABLE S Final Result Performing Organization Address [facility] de Phone Number [facility] [place] [address] * Hemoglobin A1c (10/19/2024 4:55 PM CDT) [facility] Hgb A1C 5.5 4.0 - 5.6 % Estimated Average Glucose 111 mg/dL [facility] Comment: The ADA recommends reporting an estimated Average Glucose (eAG) with all Hemoglobin A1c results using the equation derived from a study of 507 normal and diabetic adults. Minority populations were underrepresented and children were not included. (Diabetes Care 2020; 43(S1): S66-S76). The eAG is not equivalent to a fasting glucose. Blood 10/19/2024 4:55 PM CDT 10/19/2024 5:07 PM CDT Young Thapa MD LAB BLOOD ORDERABLES Carina l Result Performing Organization Address [facility] de Phone Number [facility] [place] [address] * (ABNORMAL) Comprehensive metabolic panel (10/19/2024 4:55 PM CDT) [facility] Sodium 137 135 - 145 mmol/L Potassium, pl 3.6 3.3 - 4.9 mmol/L [facility] Chloride 98 97 - 110 mmol/L [facility] CO2 25 22 - 32 mmol/L [facility] Anion gap 14 2 - 15 mmol/L [facility] BUN 21 6 - 25 mg/dL [facility] Creatinine 1.17 0.80 - 1.30 mg/dL [facility] Glucose 122 70 - 199 mg/dL [facility] Comment: Interpretive Data Fasting glucose >/= 126 [...] interpretive data was last revised 2022. Calcium 8.1(L) 8.5 - 10.3 mg/dL [facility] Bilirubin, total 0.3 0.1 - 1.2 mg/dL [facility] Protein, pl 7.1 6.5 - 8.5 g/dL C[facility] Albumin 3.3(L) 3.5 - 5.0 g/dL [facility] Alk phos 480(H) 40 - 130 Units/L [facility] ALT 26 7 - 55 Units/L [facility] AST 37 10 - 50 Units/L [facility] Blood 10/19/2024 4:55 PM CDT 10/19/2024 5:03 PM CDT us Sterling Mejias MD PhD LAB BLOOD ORDERABLE S Final Result Performing Organization Address City/[facility]/ZIP Co de Phone Number [facility] [place] [address] * POCT glucose (10/19/2024 4:53 PM CDT) [facility] Glucose, POC 129 70 - 199 mg/dL Blood 10/19/2024 4:53 PM CDT 10/19/2024 4:53 PM CDT us Notinfile Unknown LAB POCT ORDERABLES - DEVICE F inal Result Performing Organization Address City/[facility]/ZIP Co de Phone Number [facility] [place] [address] * ECG 12-LEAD (10/19/2024 3:13 PM CDT) Narrative [facility] - 10/19/2024 3:13 PM CDT Jhonny Solomon MD 10/19/2024 3:14 PM ECG 12 lead Date/Time: 10/19/2024 3:13 PM Performed by: Jhonny Solomon MD Authorized by: Aide Gallagher MD Rate: ECG rate: 98 ECG rate assessment: normal Rhythm: Rhythm: sinus rhythm Ectopy: Ectopy: none QRS: QRS axis: Normal QRS intervals: Normal Conduction: Conduction: normal ST segments: ST segments: Non-specific T waves: T waves: inverted Inverted: V2, V3 and III Previous ECG: Previous ECG: Compared to current Date of previous EC01/17/2024 Comparison ECG info: New T-wave inversion in V2 and V3 Similarity: Changes noted Interpretation: Interpretation: non-specific Recommended Follow-up: Recommended follow up: cardiac workup and further workup in the ED Procedure Note Jhonny Solomon MD - 10/19/2024 3:13 PM CDT Procedure ECG 12 lead Date/Time: 10/19/2024 3:13 PM Performed by: Jhonny Solomon MD Authorized by: Aide Gallagher MD Rate: ECG rate: 98 ECG rate assessment: normal Rhythm: Rhythm: sinus rhythm Ectopy: Ectopy: none QRS: QRS axis: Normal QRS intervals: Normal Conduction: Conduction: normal ST segments: ST segments: Non-specific T waves: T waves: inverted Inverted: V2, V3 and III Previous ECG: Previous ECG: Compared to current Date of previous EC01/17/2024 Comparison ECG info: New T-wave inversion in V2 and V3 Similarity: Changes noted Interpretation: Interpretation: non-specific Recommended Follow-up: Recommended follow up: cardiac workup and further workup in the ED Jhonny Solomon MD 10/19/24 1514 Sterling Mejias MD PhD ECG ORDERABLES Fin al Result [facility] * eGFR (10/16/2024 9:09 AM CDT) eGFR 67 >=60 mL/min/1. 73 m2 Comment: [...] interpretive data was last reviewed 2021. Blood 10/16/2024 9:09 AM CDT 10/16/2024 9:15 AM CDT us Devon Carlin MD LAB BLOOD ORDERABLES Fin al Result NERY [facility] [place] [address] * (ABNORMAL) CBC with auto differential (10/16/2024 9:09 AM CDT) WBC 10.4(H) 3.8 - 9.9 K/cumm Comment:Testing performed by : [facility], [address] [place] [address] Hgb 8.5(L) 13.0 - 17.5 g/dL NERY [facility] Comment:Testing performed by : [facility], [address] [place] [address] Hct 26.2(L) 38.9 - 50.3 % NERY H[facility]IN Comment:Testing performed by : [facility], [address] [place] [address] Plt 578(H) 150 - 400 K/cumm NERY HUSAIN Comment:Testing performed by : [facility], [address] [place] [address] MPV 6.6(L) 6.8 - 10.4 fL NERY HUSAIN Comment:Testing performed by : [facility], [address] [place] [address] RBC 3.34(L) 4.30 - 5.80 M/cumm NERY [facility] Comment:Testing performed by : [facility], [address] [place] [address] MCV 78.3(L) 81.3 - 96.4 fL NERY [facility] Comment:Testing performed by : [facility], [address] [place] [address] MCH 25.5(L) 27.1 - 33.3 pg CERGENE [facility] Comment:Testing performed by : [facility], [address] [place] [address] MCHC 32.6 32.3 - 35.7 g/dL NERY [facility] Comment:Testing performed by : [facility], [address] [place] [address] RDW CV 21.8(H) 11.1 - 14.9 % [facility] Comment:Testing performed by : [facility], [address] [place] [address] NRBC abs 0.10(H) 0.00 - 0.01 K/cumm [facility] Comment:Testing performed by : [facility], [address] [place] [address] Blood 10/16/2024 9:09 AM CDT 10/16/2024 9:11 AM CDT us Devon Carlin MD LAB BLOOD ORDERABLES Gee juliane Result - Final [facility] [place] [address] * Vitamin D 25 hydroxy (10/16/2024 9:09 AM CDT) Vitamin D 25-OH 64 30 - 80 ng/mL Blood 10/16/2024 9:09 AM CDT 10/16/2024 9:15 AM CDT us Devon Carlin MD LAB BLOOD ORDERABLES Fin al Result [facility] [place] [address] * (ABNORMAL) Manual Differential (10/16/2024 9:09 AM CDT) Cells Counted 200 Comment:Testing performed by : [facility], [address] [place], [place] [phone] Neutrophil abs 8.6(H) 1.5 - 6.5 K/cumm [facility] Comment:Testing performed by : [facility], [address] [place] [phone] Lymphocyte abs 0.8 0.8 - 3.3 K/cumm [facility] Comment:Testing performed by : [facility], [address] [place], [place] [phone] Monocyte abs 0.7 0.2 - 0.8 K/cumm [facility] Comment:Testing performed by : [facility], [address] [place] [phone] Eosinophil abs 0.1 0.0 - 0.5 K/cumm [facility] Comment:Testing performed by : [facility], [address] [place] [phone] Basophil abs 0.1 0.0 - 0.1 K/cumm [facility] Comment:Testing performed by : [facility], [address] [place] [phone] Neutrophil pct 83.0 % [facility] Comment: Interpretive Data Percent cell count reference ranges are not reported, since discordance with absolute values may lead to misinterpretation of CBC data. Current Interpretive Data was last revised on 2017. Testing performed by: [facility], [address] [place] [phone] Lymphocyte pct 8.0 % [facility] Comment: Interpretive Data Percent cell count reference ranges are not reported, since discordance with absolute values may lead to misinterpretation of CBC data. Current Interpretive Data was last revised on 2017. Testing performed by: [facility], [address] [place] [phone] Monocyte pct 7.0 % [facility] Comment: Interpretive Data Percent cell count reference ranges are not reported, since discordance with absolute values may lead to misinterpretation of CBC data. Current Interpretive Data was last revised on 2017. Testing performed by: [facility], [address] [place] [phone] Eosinophil pct 1.0 % [facility] Comment: Interpretive Data Percent cell count reference ranges are not reported, since discordance with absolute values may lead to misinterpretation of CBC data. Current Interpretive Data was last revised on 2017. Testing performed by: [facility], [address] [place], [place] [phone] Basophil pct 1.0 % [facility] Comment: Interpretive Data Percent cell count reference ranges are not reported, since discordance with absolute values may lead to misinterpretation of CBC data. Current Interpretive Data was last revised on 2017. Testing performed by: [facility], [address] [place] [phone] Metamyelocyte pct 1.0(H) 0.0 - 0.0 % [facility] Comment:Testing performed by : [facility], [address] [place], [place] [phone] Myelocyte pct 1.0(H) 0.0 - 0.0 % [facility] Comment:Testing performed by : [facility], [address] [place], [place] [phone] RBC morphology NRBCs present(A ) [facility] Comment:Testing performed by : [facility], [address] [place], [place] [phone] Polychromasia 1+(A) [facility] Comment:Testing performed by : [facility], [address] [place], [place] [phone] Hypochromasia 1+(A) [facility] Comment:Testing performed by : [facility], [address] [place], [place] [phone] Anisocytosis 1+(A) NERY HUSAIN Comment:Testing performed by : [facility], [address] [place], [place] [phone] Microcytes 1+(A) NERY [facility] Comment:Testing performed by : [facility], [address] [place], [place] [phone] Elliptocytes 1+(A) NERY [facility] Comment:Testing performed by : [facility], [address] [place], [place] [phone] Target cells 1+(A) NERY [facility] Comment:Testing performed by : [facility], [address] [place], [place] [phone] Platelet estimate Increased (A) NERY [facility] Comment:Testing performed by : [facility], [address] [place], [place] [phone] Giant platelets Present(A ) NERY [facility] Comment:Testing performed by : [facility], [address] [place], [place] [phone] Blood 10/16/2024 9:09 AM CDT 10/16/2024 9:11 AM CDT us Devon Carlin MD LAB BLOOD ORDERABLES Fin al Result [facility] [place] [address] * (ABNORMAL) Protime-INR (10/16/2024 9:09 AM CDT) PT 13.8(H) 9.7 - 13.0 sec INR 1.27(H) 0.90 - 1.20 NERY HUSAIN Comment: Interpretive data Oral anticoagulant therapeutic ranges: Venous thromboembolism prophylaxis or treatment: 2.0-3.0 CARDIOLOGY Standard range: 2.0-3.0 High-intensity range: 2.5-3.5 Refer to indication-specific guidelines for appropriate target ranges for prosthetic heart valve replacement. Current interpretive data was last revised on 2019. Blood 10/16/2024 9:09 AM CDT 10/16/2024 9:58 AM CDT Devon Carlin MD LAB BLOOD ORDERABLES Fin al Result Performing Organization Address City/[facility] Co de Phone Number NERY [facility] [place] [address] * (ABNORMAL) PSA diagnostic (10/16/2024 9:09 AM CDT) PSA-Total 250.00(H) <=6.20 ng/mL Comment: Interpretive Data AGE SEX [...] Current interpretive data last revised 21. Blood 10/16/2024 9:09 AM CDT 10/16/2024 9:15 AM CDT Devon Carlin MD LAB BLOOD ORDERABLES Fin al Result Performing Organization Address [facility] de Phone Number [facility] [place] [address] * Phosphorus (10/16/2024 9:09 AM CDT) Phosphorus, pl 2.9 2.3 - 4.5 mg/dL Blood 10/16/2024 9:09 AM CDT 10/16/2024 9:15 AM CDT Devon Carlin MD LAB BLOOD ORDERABLES Fin al Result Performing Organization Address City/[facility] Co de Phone Number [facility] [place] [address] * (ABNORMAL) Comprehensive metabolic panel (10/16/2024 9:09 AM CDT) Sodium 138 135 - 145 mmol/L Potassium, pl 3.6 3.3 - 4.9 mmol/L [facility] Chloride 96(L) 97 - 110 mmol/L [facility] CO2 27 22 - 32 mmol/L [facility] Anion gap 15 2 - 15 mmol/L [facility] BUN 23 6 - 25 mg/dL [facility] Creatinine 1.12 0.80 - 1.30 mg/dL [facility] Glucose 149 70 - 199 mg/dL [facility] Comment: Interpretive Data Fasting glucose >/= 126 [...] interpretive data was last revised 2022. Calcium 9.6 8.5 - 10.3 mg/dL [facility] Bilirubin, total 0.4 0.1 - 1.2 mg/dL [facility] Protein, pl 7.2 6.5 - 8.5 g/dL [facility] Albumin 3.4(L) 3.5 - 5.0 g/dL [facility] Alk phos 510(H) 40 - 130 Units/L [facility] ALT 50 7 - 55 Units/L [facility] AST 50 10 - 50 Units/L [facility] Blood 10/16/2024 9:09 AM CDT 10/16/2024 9:15 AM CDT us Devon Carlin MD LAB BLOOD ORDERABLES Fin al Result [facility] [place] [address] * PET/CT Prostate Cancer PSMA Skull to Thigh (10/10/2024 3:02 PM CDT) Anatomical Region Laterality Modality N/A Positron Emissio n Tomography (PET) 10/10/2024 4:01 PM CDT Impressions 10/10/2024 4:56 PM CDT 1. Multiple new/increased left retroperitoneal/common iliac lymph nodes from 2024 do not have significant PSMA uptake (previously PSMA avid in 2021) and are concerning for dedifferentiation and/or neuroendocrine differentiation. If clinically indicated, recommend FDG PET/CT to assess for site of tissue sampling. 2. Diffuse moderate and intensely tracer avid metastatic disease involving thoracic martha, right retroperitoneal/pelvic martha, and predominantly sclerotic diffuse osseous metastases. No PET evidence of visceral involvement. 3. Increased bilateral moderate pleural effusions. 4. Continued obstructive left severe hydroureteronephrosis from obstructing retroperitoneal lymphadenopathy. Dictated by: Madeline Can MD The radiology attending physician has personally reviewed this study, and had reviewed and/or edited this written report and agrees with it. Electronically signed by: Jeyson Choudhary MD Narrative 10/10/2024 4:56 PM CDT EXAMINATION: PSMA-PET/CT DATE OF STUDY: 10/10/2024 SCANNER: [facility] NGDATAa (SQ1). This is a high-resolution scanner, which can result in higher SUVs (and even detection of previously unrecognized small lesions) compared to older scanners. RADIOPHARMACEUTICAL: 6.5 mCi Ga-68 PSMA-11 (Gozetotide) i.v. Injection site: Right hand HISTORY: 79-year-old man with prostate cancer diagnosed on 06/30/2021. 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 The most recently obtained PSA on 09/18/2024 is 207 ng/mL, increased from 129 on 06/26/2024. The study is requested for restaging of documented biochemically recurrent prostate cancer. Subsequent treatment strategy. TECHNIQUE: After intravenous administration of tracer, noncontrast CT images were obtained for attenuation correction and for fusion with emission PET images to allow for anatomical localization of PET findings. Emission PET images were then obtained. The study was interpreted on the [employer] workstation. The total scanned area was mid thighs to skull vertex. Images of the body were obtained starting 58 minutes after injection of tracer. REFERENCE TISSUE MAXIMUM SUVs: Parotid gland 10.4; Liver 3.7; Blood pool 2.0 Focal PSMA tracer uptake is graded as follows: * Faint: above background to blood pool * Mild: above blood pool to liver * Moderate: above liver to salivary glands * Intense: similar to or above salivary glands COMPARISON: PSMA PET/CT dated 09/15/2021, CT chest abdomen pelvis from 2024 FINDINGS: Prostate bed: No abnormal tracer uptake seen. Regional lymph nodes: Increased size of left common iliac lymph nodes without significant tracer uptake, image 227 measuring 3.0 cm short axis, previously 2.0 cm. New left para-aortic lymph node without significant tracer uptake, image 220 measuring up to 2.8 cm short axis. These were previously PSMA avid on PET/CT from 2021. Mild tracer uptake in multiple right external iliac lymph node,, for reference image 262, with SUV 7.8. Mild tracer uptake in the right obturator lymph node, image 266. There is mild tracer uptake within multiple retroperitoneal subcentimeter lymph nodes, for reference a left para-aortic node, image 195, SUV 4.2. Extra-pelvic lymph nodes: Moderate tracer uptake within a left inguinal lymph node measuring up to 8 mm. Mild tracer uptake with evidence subcentimeter right inguinal lymph nodes. There is intense tracer uptake within a subcarinal lymph node, SUV 15.3. In addition there are multiple moderately tracer avid mediastinal lymph nodes. There is moderate tracer uptake within the right axillary lymph nodes, and moderate to intense tracer uptake within the prevascular and bilateral supraclavicular lymph nodes. Bone: Diffuse osseous intense tracer avid predominantly blastic osseous metastases involving the axial and proximal appendicular skeleton. There are multiple areas of lytic metastases, for reference in the T12 vertebral body. There is no height loss of any of the vertebral bodies. Diffuse calvarial metastases without definite intracranial extension. Visceral: No abnormal tracer uptake seen. Additional CT findings: There is unchanged severe left hydroureteronephrosis from obstructive left common iliac lymph nodes with cortical and atrophy of the left kidney. Increased moderate bilateral pleural effusions with near complete collapse of the lower lobes. Mild diffuse mesenteric edema. Procedure Note Jeyson Choudhary MD - 10/10/2024 EXAMINATION: PSMA-PET/CT DATE OF STUDY: 10/10/2024 SCANNER: [facility] Box Jump (SQ1). This is a high-resolution scanner, which can result in higher SUVs (and even detection of previously unrecognized small lesions) compared to older scanners. RADIOPHARMACEUTICAL: 6.5 mCi Ga-68 PSMA-11 (Gozetotide) i.v. Injection site: Right hand HISTORY: 79-year-old man with prostate cancer diagnosed on 06/30/2021. 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 The most recently obtained PSA on 09/18/2024 is 207 ng/mL, increased from 129 on 06/26/2024. The study is requested for restaging of documented biochemically recurrent prostate cancer. Subsequent treatment strategy. TECHNIQUE: After intravenous administration of tracer, noncontrast CT images were obtained for attenuation correction and for fusion with emission PET images to allow for anatomical localization of PET findings. Emission PET images were then obtained. The study was interpreted on the [employer] workstation. The total scanned area was mid thighs to skull vertex. Images of the body were obtained starting 58 minutes after injection of tracer. REFERENCE TISSUE MAXIMUM SUVs: Parotid gland 10.4; Liver 3.7; Blood pool 2.0 Focal PSMA tracer uptake is graded as follows: * Faint: above background to blood pool * Mild: above blood pool to liver * Moderate: above liver to salivary glands * Intense: similar to or above salivary glands COMPARISON: PSMA PET/CT dated 09/15/2021, CT chest abdomen pelvis from 2024 FINDINGS: Prostate bed: No abnormal tracer uptake seen. Regional lymph nodes: Increased size of left common iliac lymph nodes without significant tracer uptake, image 227 measuring 3.0 cm short axis, previously 2.0 cm. New left para-aortic lymph node without significant tracer uptake, image 220 measuring up to 2.8 cm short axis. These were previously PSMA avid on PET/CT from 2021. Mild tracer uptake in multiple right external iliac lymph node,, for reference image 262, with SUV 7.8. Mild tracer uptake in the right obturator lymph node, image 266. There is mild tracer uptake within multiple retroperitoneal subcentimeter lymph nodes, for reference a left para-aortic node, image 195, SUV 4.2. Extra-pelvic lymph nodes: Moderate tracer uptake within a left inguinal lymph node measuring up to 8 mm. Mild tracer uptake with evidence subcentimeter right inguinal lymph nodes. There is intense tracer uptake within a subcarinal lymph node, SUV 15.3. In addition there are multiple moderately tracer avid mediastinal lymph nodes. There is moderate tracer uptake within the right axillary lymph nodes, and moderate to intense tracer uptake within the prevascular and bilateral supraclavicular lymph nodes. Bone: Diffuse osseous intense tracer avid predominantly blastic osseous metastases involving the axial and proximal appendicular skeleton. There are multiple areas of lytic metastases, for reference in the T12 vertebral body. There is no height loss of any of the vertebral bodies. Diffuse calvarial metastases without definite intracranial extension. Visceral: No abnormal tracer uptake seen. Additional CT findings: There is unchanged severe left hydroureteronephrosis from obstructive left common iliac lymph nodes with cortical and atrophy of the left kidney. Increased moderate bilateral pleural effusions with near complete collapse of the lower lobes. Mild diffuse mesenteric edema. IMPRESSION: 1. Multiple new/increased left retroperitoneal/common iliac lymph nodes from 2024 do not have significant PSMA uptake (previously PSMA avid in 2021) and are concerning for dedifferentiation and/or neuroendocrine differentiation. If clinically indicated, recommend FDG PET/CT to assess for site of tissue sampling. 2. Diffuse moderate and intensely tracer avid metastatic disease involving thoracic martha, right retroperitoneal/pelvic martha, and predominantly sclerotic diffuse osseous metastases. No PET evidence of visceral involvement. 3. Increased bilateral moderate pleural effusions. 4. Continued obstructive left severe hydroureteronephrosis from obstructing retroperitoneal lymphadenopathy. Dictated by: Madeline Can MD The radiology attending physician has personally reviewed this study, and had reviewed and/or edited this written report and agrees with it. Electronically signed by: Jeyson Choudhary MD us Devon Carlin MD IMG PET PROCEDURES Final Result * MRI Brain W WO Contrast (09/23/2024 6:45 PM DRAFT ROLLER PICKER) Anatomical Region Laterality Modality Head and Neck N/A Magnetic Resonan ce 09/24/2024 10:3 4 AM DRAFT ROLLER PICKER Impressions 09/24/2024 12:59 PM DRAFT ROLLER PICKER 1. Calvarial and skull base heterogenously enhancing marrow replacing metastatic lesions with right greater than left pachymeningeal thickening are overall similar to prior. No evidence of disease progression. 2. Focal 2 mm outpouching from the paraclinoid right internal carotid artery may represent an aneurysm. This could be further evaluated with MRA or CTA. 3. Air-fluid level within the left maxillary sinus may represent acute sinusitis. Dictated by: Jay Tucker M.D. The radiology attending physician has personally reviewed this study, and had reviewed and/or edited this written report and agrees with it. Electronically signed by: Juve Yi M.D. Narrative 09/24/2024 12:59 PM DRAFT ROLLER PICKER EXAMINATION: Magnetic resonance imaging (MRI) of the brain and brainstem without and with contrast HISTORY: 79-year-old male with with prostate cancer diagnosed in 2020 status post radical prostatectomy 06/30/2021. In August 2021 spelled out metastatic disease to the bone and was started on leuprolide and abiraterone/pred. In November 2023 patient was found to have calvarial metastatic disease and a subdural hematoma. Patient received 10 cycles of Docetaxel from 01/13 to 09/16 with progression of PSA. He is currently on leuprolide and Xgeva. MRI brain to evaluate metastatic disease. TECHNIQUE: Multiplanar multi-weighted MRI of the brain and brainstem was performed without and with intravenous contrast using the general brain protocol. Contrast information: 14 mL Gadoterate Meglumine COMPARISON: Multiple prior MRIs most recently 04/17/2024 FINDINGS: Extensive calvarial and skull base (clivus) marrow replacing metastatic lesions with enhancement are largely unchanged from prior MRI 04/17/2024. There is pachymeningeal thickening and enhancement which is similar to prior study. There is also trace pachymeningeal thickening and enhancement along the left calvarium which is also unchanged from prior. Focal 2 mm outpouching from the paraclinoid right internal carotid artery with which may represent aneurysm. There are scattered periventricular and deep white matter T2/FLAIR hyperintense foci, nonspecific, which may be associated with chronic small vessel ischemic disease. The superior sagittal sinus demonstrates normal venous flow. The corpus callosum is normal in shape and signal intensity. The posterior fossa is unremarkable. The pituitary and sella are normal. The brainstem and craniocervical junction are unremarkable. Diffusion weighted images reveal no hyperintensities to suggest acute cerebral infarction. The susceptibility weighted sequences reveal no evidence of acute or chronic hemorrhage. The ventricles are normal in size and position without evidence of hydrocephalus. Layering fluid within the left maxillary sinus. Mild mucosal thickening throughout the paranasal sinuses. Left greater than right mastoid effusion. The orbits appear normal. Normal flow voids are demonstrated in the basilar artery. Procedure Note Juve Yi MD - 09/24/2024 EXAMINATION: Magnetic resonance imaging (MRI) of the brain and brainstem without and with contrast HISTORY: 79-year-old male with with prostate cancer diagnosed in 2020 status post radical prostatectomy 06/30/2021. In August 2021 spelled out metastatic disease to the bone and was started on leuprolide and abiraterone/pred. In November 2023 patient was found to have calvarial metastatic disease and a subdural hematoma. Patient received 10 cycles of Docetaxel from 01/13 to 09/16 with progression of PSA. He is currently on leuprolide and Xgeva. MRI brain to evaluate metastatic disease. TECHNIQUE: Multiplanar multi-weighted MRI of the brain and brainstem was performed without and with intravenous contrast using the general brain protocol. Contrast information: 14 mL Gadoterate Meglumine COMPARISON: Multiple prior MRIs most recently 04/17/2024 FINDINGS: Extensive calvarial and skull base (clivus) marrow replacing metastatic lesions with enhancement are largely unchanged from prior MRI 04/17/2024. There is pachymeningeal thickening and enhancement which is similar to prior study. There is also trace pachymeningeal thickening and enhancement along the left calvarium which is also unchanged from prior. Focal 2 mm outpouching from the paraclinoid right internal carotid artery with which may represent aneurysm. There are scattered periventricular and deep white matter T2/FLAIR hyperintense foci, nonspecific, which may be associated with chronic small vessel ischemic disease. The superior sagittal sinus demonstrates normal venous flow. The corpus callosum is normal in shape and signal intensity. The posterior fossa is unremarkable. The pituitary and sella are normal. The brainstem and craniocervical junction are unremarkable. Diffusion weighted images reveal no hyperintensities to suggest acute cerebral infarction. The susceptibility weighted sequences reveal no evidence of acute or chronic hemorrhage. The ventricles are normal in size and position without evidence of hydrocephalus. Layering fluid within the left maxillary sinus. Mild mucosal thickening throughout the paranasal sinuses. Left greater than right mastoid effusion. The orbits appear normal. Normal flow voids are demonstrated in the basilar artery. IMPRESSION: 1. Calvarial and skull base heterogenously enhancing marrow replacing metastatic lesions with right greater than left pachymeningeal thickening are overall similar to prior. No evidence of disease progression. 2. Focal 2 mm outpouching from the paraclinoid right internal carotid artery may represent an aneurysm. This could be further evaluated with MRA or CTA. 3. Air-fluid level within the left maxillary sinus may represent acute sinusitis. Dictated by: Jay Tucker M.D. The radiology attending physician has personally reviewed this study, and had reviewed and/or edited this written report and agrees with it. Electronically signed by: Juve Yi M.D. [facility] CONTI IM MRI PROCEDURES Carina kendra Result * eGFR (09/18/2024 8:52 AM DRAFT ROLLER PICKER) eGFR 81 >=60 mL/min/1. 73 m2 Comment: Interpretive Data [...] interpretive data was last reviewed 2021. Blood 09/18/2024 8:52 AM DRAFT ROLLER PICKER 09/18/2024 9:02 AM DRAFT ROLLER PICKER us Devon Carlin MD LAB BLOOD ORDERABLES Fin al Result [facility] [place] [address] * Differential, auto (09/18/2024 8:52 AM DRAFT ROLLER PICKER) Neutrophil abs 4.2 1.5 - 6.5 K/cumm Comment:Testing performed by : [facility], [address] [place] [phone] Lymphocyte abs 1.1 0.8 - 3.3 K/cumm CERNER [facility] Comment:Testing performed by : [facility], [address] [place] [phone] Monocyte abs 0.3 0.2 - 0.8 K/cumm CERNER BJ Comment:Testing performed by : [facility], [address] [place] [phone] Eosinophil abs 0.0 0.0 - 0.5 K/cumm CERNER BJ Comment:Testing performed by : [facility], [address] [place] [phone] Basophil abs 0.0 0.0 - 0.1 K/cumm CERNER BJ Comment:Testing performed by : [facility], [address] [place] [phone] Neutrophil pct 74.2 % CERNER BJ Comment: Interpretive Data Percent cell count reference ranges are not reported, since discordance with absolute values may lead to misinterpretation of CBC data. Current Interpretive Data was last revised on 2017. Testing performed by: [facility], [address] [place] [phone] Lymphocyte pct 19.7 % CERNER BJ Comment: Interpretive Data Percent cell count reference ranges are not reported, since discordance with absolute values may lead to misinterpretation of CBC data. Current Interpretive Data was last revised on 2017. Testing performed by: [facility], [address] [place] [phone] Monocyte pct 5.3 % NERY HUSAIN Comment: Interpretive Data Percent cell count reference ranges are not reported, since discordance with absolute values may lead to misinterpretation of CBC data. Current Interpretive Data was last revised on 2017. Testing performed by: [facility], [address] [place] [phone] Eosinophil pct 0.1 % NERY HUSAIN Comment: Interpretive Data Percent cell count reference ranges are not reported, since discordance with absolute values may lead to misinterpretation of CBC data. Current Interpretive Data was last revised on 2017. Testing performed by: [facility], [address] [place] [phone] Basophil pct 0.7 % NERY HUSAIN Comment: Interpretive Data Percent cell count reference ranges are not reported, since discordance with absolute values may lead to misinterpretation of CBC data. Current Interpretive Data was last revised on 2017. Testing performed by: [facility], [address] [place] [phone] Blood 09/18/2024 8:52 AM DRAFT ROLLER PICKER 09/18/2024 8:55 AM DRAFT ROLLER PICKER us Devon Carlin MD LAB BLOOD ORDERABLES Fin al Result NERY HUSAIN [facility] [place] [address] * (ABNORMAL) CBC with auto differential (09/18/2024 8:52 AM DRAFT ROLLER PICKER) WBC 5.6 3.8 - 9.9 K/cumm Comment:Testing performed by : [facility], [address] [place] [phone] Hgb 8.8(L) 13.0 - 17.5 g/dL CERNER BJ Comment:Testing performed by : [facility], [address] [place], [place] [phone] Hct 27.0(L) 38.9 - 50.3 % CERNER BJ Comment:Testing performed by : [facility], [address] [place], [place] [phone] Plt 508(H) 150 - 400 K/cumm CERNER BJ Comment:Testing performed by : [facility], [address] [place], [place] [phone] MPV 6.5(L) 6.8 - 10.4 fL CERNER BJ Comment:Testing performed by : [facility], [address] [place], [place] [phone] RBC 3.25(L) 4.30 - 5.80 M/cumm CERNER BJ Comment:Testing performed by : [facility], [address] [place], [place] [phone] MCV 83.1 81.3 - 96.4 fL CERNER BJ Comment:Testing performed by : [facility], [address] [place], [place] [phone] MCH 27.1 27.1 - 33.3 pg CERNER BJ Comment:Testing performed by : [facility], [address] [place], [place] [phone] MCHC 32.7 32.3 - 35.7 g/dL CERNER BJ Comment:Testing performed by : [facility], [address] [place], [place] [phone] RDW CV 23.3(H) 11.1 - 14.9 % CERNER BJ Comment:Testing performed by : [facility], [address] [place], [place] [phone] NRBC abs 0.00 0.00 - 0.01 K/cumm CERNER BJ Comment:Testing performed by : [facility], [address] [place] [address] Blood 09/18/2024 8:52 AM DRAFT ROLLER PICKER 09/18/2024 8:55 AM DRAFT ROLLER PICKER Devon Carlin MD LAB BLOOD ORDERABLES Fin al Result Performing Organization Address City/[facility]/ZIP Co de Phone Number [facility] [place] [address] * (ABNORMAL) Total testosterone (09/18/2024 8:52 AM DRAFT ROLLER PICKER) Testosterone <5.0(L) 193.0 - 740.0 ng/dL Blood 09/18/2024 8:52 AM DRAFT ROLLER PICKER 09/18/2024 9:31 AM DRAFT ROLLER PICKER Devon Carlin MD LAB BLOOD ORDERABLES Fin al Result Performing Organization Address [facility] de Phone Number [facility] [place] [address] * (ABNORMAL) PSA diagnostic (09/18/2024 8:52 AM DRAFT ROLLER PICKER) PSA-Total 207.00(H) <=6.20 ng/mL Comment: Interpretive Data AGE SEX [...] Current interpretive data last revised 21. Blood 09/18/2024 8:52 AM DRAFT ROLLER PICKER 09/18/2024 9:02 AM DRAFT ROLLER PICKER Devon Carlin MD LAB BLOOD ORDERABLES Fin al Result Performing Organization Address [facility] Co de Phone Number [facility] [place] [address] * (ABNORMAL) Comprehensive metabolic panel (09/18/2024 8:52 AM DRAFT ROLLER PICKER) Sodium 140 135 - 145 mmol/L Potassium, pl 4.1 3.3 - 4.9 mmol/L [facility] Chloride 101 97 - 110 mmol/L [facility] CO2 26 22 - 32 mmol/L [facility] Anion gap 13 2 - 15 mmol/L [facility] BUN 20 6 - 25 mg/dL [facility] Creatinine 0.95 0.80 - 1.30 mg/dL [facility] Glucose 132 70 - 199 mg/dL [facility] Comment: Interpretive Data Fasting glucose >/= 126 [...] interpretive data was last revised 2022. Calcium 9.8 8.5 - 10.3 mg/dL [facility] Bilirubin, total 0.4 0.1 - 1.2 mg/dL [facility] Protein, pl 7.2 6.5 - 8.5 g/dL [facility] Albumin 3.6 3.5 - 5.0 g/dL [facility] Alk phos 402(H) 40 - 130 Units/L [facility] ALT 13 7 - 55 Units/L [facility] AST 27 10 - 50 Units/L [facility] Blood 09/18/2024 8:52 AM DRAFT ROLLER PICKER 09/18/2024 9:02 AM DRAFT ROLLER PICKER us Devon Carlin MD LAB BLOOD ORDERABLES Fin al Result [facility] [place] [address] * eGFR (09/04/2024 7:07 AM DRAFT ROLLER PICKER) eGFR 67 >=60 mL/min/1. 73 m2 Comment: [...] interpretive data was last reviewed 2021. Blood 09/04/2024 7:07 AM DRAFT ROLLER PICKER 09/04/2024 7:12 AM DRAFT ROLLER PICKER us Devon Carlin MD LAB BLOOD ORDERABLES Fin al Result [facility] [place] [address] * (ABNORMAL) Comprehensive metabolic panel (09/04/2024 7:07 AM DRAFT ROLLER PICKER) Sodium 140 135 - 145 mmol/L Potassium, pl 4.9 3.3 - 4.9 mmol/L [facility] Chloride 102 97 - 110 mmol/L [facility] CO2 27 22 - 32 mmol/L [facility] Anion gap 11 2 - 15 mmol/L [facility] BUN 21 6 - 25 mg/dL [facility] Creatinine 1.12 0.80 - 1.30 mg/dL [facility] Glucose 144 70 - 199 mg/dL [facility] Comment: Interpretive Data Fasting glucose >/= 126 [...] interpretive data was last revised 2022. Calcium 9.2 8.5 - 10.3 mg/dL CERNER [facility] Bilirubin, total 0.2 0.1 - 1.2 mg/dL CERNER [facility] Protein, pl 6.7 6.5 - 8.5 g/dL CERNER [facility] Albumin 3.5 3.5 - 5.0 g/dL CERNER [facility] Alk phos 368(H) 40 - 130 Units/L [facility] ALT 30 7 - 55 Units/L [facility] AST 37 10 - 50 Units/L CERNER [facility] Blood 09/04/2024 7:07 AM DRAFT ROLLER PICKER 09/04/2024 7:12 AM DRAFT ROLLER PICKER us Devon Carlin MD LAB BLOOD ORDERABLES Fin al Result [facility] [place] [address] * (ABNORMAL) CBC with auto differential (09/04/2024 7:02 AM DRAFT ROLLER PICKER) WBC 6.4 3.8 - 9.9 K/cumm Comment:Testing performed by : [facility], [address] [place] [phone] Hgb 8.6(L) 13.0 - 17.5 g/dL CERNER BJ Comment:Testing performed by : [facility], [address] [place] [phone] Hct 26.7(L) 38.9 - 50.3 % CERNER [facility]J Comment:Testing performed by : [facility], [address] [place] [phone] Plt 606(H) 150 - 400 K/cumm CERNER [facility]J Comment:Testing performed by : [facility], [address] [place], [place] [phone] MPV 6.7(L) 6.8 - 10.4 fL NERY HUSAIN Comment:Testing performed by : [facility], [address] [place], [place] [phone] RBC 3.21(L) 4.30 - 5.80 M/cumm NERY HUSAIN Comment:Testing performed by : [facility] [facility], [address] [place], [place] [id number] MCV 83.1 81.3 - 96.4 fL NERY HUSAIN Comment:Testing performed by : [facility], [address] [place], [place] [phone] MCH 26.7(L) 27.1 - 33.3 pg NERY UHSAIN Comment:Testing performed by : [facility], [address] [place], [place] [phone] MCHC 32.2(L) 32.3 - 35.7 g/dL NERY HUSAIN Comment:Testing performed by : [facility], [address] [place], [place] [phone] RDW CV 19.6(H) 11.1 - 14.9 % NERY [facility] Comment:Testing performed by : [facility], [address] [place], [place] [phone] NRBC abs 0.00 0.00 - 0.01 K/cumm NERY [facility] Comment:Testing performed by : [facility], [address] [place] [address] Blood 09/04/2024 7:02 AM DRAFT ROLLER PICKER 09/04/2024 7:10 AM DRAFT ROLLER PICKER us Devon Carlin MD LAB BLOOD ORDERABLES Fin al Result NERY HUSAIN [facility] [place] [address] * (ABNORMAL) Manual Differential (09/04/2024 7:02 AM DRAFT ROLLER PICKER) Cells Counted 200 Comment:Testing performed by : [facility], [address] [place] [phone] Neutrophil abs 4.4 1.5 - 6.5 K/cumm [facility] Comment:Testing performed by : [facility], [address] [place] [phone] Lymphocyte abs 1.5 0.8 - 3.3 K/cumm [facility] Comment:Testing performed by : [facility], [address] [place] [phone] Monocyte abs 0.2 0.2 - 0.8 K/cumm [facility] Comment:Testing performed by : [facility], [address] [place], [place] [phone] Eosinophil abs 0.1 0.0 - 0.5 K/cumm [facility] Comment:Testing performed by : [facility], [address] [place], [place] [phone] Basophil abs 0.1 0.0 - 0.1 K/cumm [facility] Comment:Testing performed by : [facility], [address] [place] [phone] Neutrophil pct 69.0 % [facility] Comment: Interpretive Data Percent cell count reference ranges are not reported, since discordance with absolute values may lead to misinterpretation of CBC data. Current Interpretive Data was last revised on 2017. Testing performed by: [facility], [address] [place] [phone] Lymphocyte pct 24.0 % [facility] Comment: Interpretive Data Percent cell count reference ranges are not reported, since discordance with absolute values may lead to misinterpretation of CBC data. Current Interpretive Data was last revised on 2017. Testing performed by: [facility], [address] [place] [phone] Monocyte pct 3.0 % [facility] Comment: Interpretive Data Percent cell count reference ranges are not reported, since discordance with absolute values may lead to misinterpretation of CBC data. Current Interpretive Data was last revised on 2017. Testing performed by: [facility], [address], [place] [address] Eosinophil pct 2.0 % CERNER [facility] Comment: Interpretive Data Percent cell count reference ranges are not reported, since discordance with absolute values may lead to misinterpretation of CBC data. Current Interpretive Data was last revised on 2017. Testing performed by: [facility], [address] [place], [place] [phone] Basophil pct 1.0 % CERNER [facility] Comment: Interpretive Data Percent cell count reference ranges are not reported, since discordance with absolute values may lead to misinterpretation of CBC data. Current Interpretive Data was last revised on 2017. Testing performed by: [facility], [address] [place], [place] [phone] Metamyelocyte pct 2.0 % CERNER [facility] Comment:Testing performed by : [facility], [address] [place], [place] [phone] Myelocyte pct 1.0 % CERNER [facility] Comment:Testing performed by : [facility], [address] [place], [place] [phone] Promyelocyte pct 1.0 % CERNER [facility] Comment:Testing performed by : [facility], [address] [place], [place] [phone] RBC morphology NRBCs present(A ) CERNER [facility] Comment:Testing performed by : [facility], [address] [place], [place] [phone] Polychromasia 1+(A) CERNER [facility] Comment:Testing performed by : [facility], [address] [place], [place] [phone] Hypochromasia 1+(A) CERNER [facility]J Comment:Testing performed by : [facility], [address] [place], [place] [phone] Anisocytosis 1+(A) CERNER [facility] Comment:Testing performed by : [facility], [address] [place], [place] [phone] Poikilocytosis 1+(A) CERNER [facility] Comment:Testing performed by : [facility], [address] [place], [place] [phone] Elliptocytes 1+(A) NERY [facility] Comment:Testing performed by : [facility], [address] [place] [phone] Target cells 1+(A) NERY [facility] Comment:Testing performed by : [facility], [address] [place] [phone] Teardrop cells 1+(A) NERY [facility] Comment:Testing performed by : [facility], [address] [place] [phone] Platelet estimate Increased (A) NERY [facility] Comment:Testing performed by : [facility], [address] [place] [phone] Giant platelets Present(A ) NERY [facility] Comment:Testing performed by : [facility], [address] [place] [phone] Blood 09/04/2024 7:02 AM DRAFT ROLLER PICKER 09/04/2024 7:10 AM DRAFT ROLLER PICKER us Devon Carlin MD LAB BLOOD ORDERABLES Fin al Result [facility] [place] [address] * eGFR (08/28/2024 7:48 AM DRAFT ROLLER PICKER) eGFR 74 >=60 mL/min/1. 73 m2 Comment: [...] of Race in Diagnosing Kidney Disease, JASN 2021). The CKD-EPI equation should not be used for patients with unstable renal function and has not been validated in children and those over 70. Current interpretive data was last reviewed 2021. Blood 08/28/2024 7:48 AM DRAFT ROLLER PICKER 08/28/2024 7:58 AM DRAFT ROLLER PICKER us Devon Carlin MD LAB BLOOD ORDERABLES Fin al Result [facility] [place] [address] * (ABNORMAL) Differential, auto (08/28/2024 7:48 AM DRAFT ROLLER PICKER) Neutrophil abs 6.6(H) 1.5 - 6.5 K/cumm Comment:Testing performed by : [facility], [address] [place] [phone] Lymphocyte abs 1.5 0.8 - 3.3 K/cumm CERNER [facility] Comment:Testing performed by : [facility], [address] [place] [phone] Monocyte abs 0.4 0.2 - 0.8 K/cumm CERNER BJ Comment:Testing performed by : [facility], [address] [place] [phone] Eosinophil abs 0.0 0.0 - 0.5 K/cumm CERNER BJ Comment:Testing performed by : [facility], [address] [place] [phone] Basophil abs 0.1 0.0 - 0.1 K/cumm CERNER BJ Comment:Testing performed by : [facility], [address] [place] [phone] Neutrophil pct 76.8 % CERNER BJ Comment: Interpretive Data Percent cell count reference ranges are not reported, since discordance with absolute values may lead to misinterpretation of CBC data. Current Interpretive Data was last revised on 2017. Testing performed by: [facility], [address] [place] [phone] Lymphocyte pct 17.0 % CERNER [facility] Comment: Interpretive Data Percent cell count reference ranges are not reported, since discordance with absolute values may lead to misinterpretation of CBC data. Current Interpretive Data was last revised on 2017. Testing performed by: [facility], [address] [place] [phone] Monocyte pct 4.9 % [facility] Comment: Interpretive Data Percent cell count reference ranges are not reported, since discordance with absolute values may lead to misinterpretation of CBC data. Current Interpretive Data was last revised on 2017. Testing performed by: [facility], [address] [place] [phone] Eosinophil pct 0.4 % [facility] Comment: Interpretive Data Percent cell count reference ranges are not reported, since discordance with absolute values may lead to misinterpretation of CBC data. Current Interpretive Data was last revised on 2017. Testing performed by: [facility], [address] [place] [phone] Basophil pct 0.9 % [facility] Comment: Interpretive Data Percent cell count reference ranges are not reported, since discordance with absolute values may lead to misinterpretation of CBC data. Current Interpretive Data was last revised on 2017. Testing performed by: [facility], [address] [place] [phone] Blood 08/28/2024 7:48 AM DRAFT ROLLER PICKER 08/28/2024 8:00 AM DRAFT ROLLER PICKER us Devon Carlin MD LAB BLOOD ORDERABLES Fin al Result [facility] [place] [address] * (ABNORMAL) CBC with auto differential (08/28/2024 7:48 AM DRAFT ROLLER PICKER) WBC 8.6 3.8 - 9.9 K/cumm Comment:Testing performed by : [facility], [address] [place] [phone] Hgb 9.5(L) 13.0 - 17.5 g/dL CERNER BJ Comment:Testing performed by : [facility], [address] [place] [address] Hct 29.4(L) 38.9 - 50.3 % CERNER BJ Comment:Testing performed by : [facility], [address] [place] [address] Plt 568(H) 150 - 400 K/cumm CERNER BJ Comment:Testing performed by : [facility], [address] [place] [address] MPV 7.2 6.8 - 10.4 fL CERNER BJ Comment:Testing performed by : [facility], [address] [place] [address] RBC 3.52(L) 4.30 - 5.80 M/cumm CERNER BJ Comment:Testing performed by : [facility], [address] [place] [address] MCV 83.5 81.3 - 96.4 fL CERNER [facility]J Comment:Testing performed by : [facility], [address] [place] [address] MCH 27.0(L) 27.1 - 33.3 pg CERNER BJ Comment:Testing performed by : [facility], [address] [place] [address] MCHC 32.4 32.3 - 35.7 g/dL CERNER BJ Comment:Testing performed by : [facility], [address] [place] [address] RDW CV 19.4(H) 11.1 - 14.9 % CERNER BJ Comment:Testing performed by : [facility], [address] [place] [address] NRBC abs 0.00 0.00 - 0.01 K/cumm CERNER BJ Comment:Testing performed by : [facility], [address] [place] [address] Blood 08/28/2024 7:48 AM DRAFT ROLLER PICKER 08/28/2024 8:00 AM DRAFT ROLLER PICKER Devon Carlin MD LAB BLOOD ORDERABLES Fin al Result Performing Organization Address City[facility] Co de Phone Number NERY [facility] [place] [address] * (ABNORMAL) Total testosterone (08/28/2024 7:48 AM DRAFT ROLLER PICKER) Testosterone <5.0(L) 193.0 - 740.0 ng/dL Blood 08/28/2024 7:48 AM DRAFT ROLLER PICKER 08/28/2024 8:20 AM DRAFT ROLLER PICKER Devon Carlin MD LAB BLOOD ORDERABLES Fin al Result Performing Organization Address [facility] [place] [address] * (ABNORMAL) PSA diagnostic (08/28/2024 7:48 AM DRAFT ROLLER PICKER) PSA-Total 188.00(H) <=6.20 ng/mL Comment: Interpretive Data [...] last revised 21. Blood 08/28/2024 7:48 AM DRAFT ROLLER PICKER 08/28/2024 7:58 AM DRAFT ROLLER PICKER Devon Carlin MD LAB BLOOD ORDERABLES Fin al Result Performing Organization Address [facility] de Phone Number [facility] [place] [address] * (ABNORMAL) Comprehensive metabolic panel (08/28/2024 7:48 AM DRAFT ROLLER PICKER) Sodium 140 135 - 145 mmol/L Potassium, pl 4.4 3.3 - 4.9 mmol/L [facility] Chloride 100 97 - 110 mmol/L [facility] CO2 29 22 - 32 mmol/L [facility] Anion gap 11 2 - 15 mmol/L [facility] BUN 23 6 - 25 mg/dL [facility] Creatinine 1.03 0.80 - 1.30 mg/dL [facility] Glucose 166 70 - 199 mg/dL [facility] Comment: Interpretive Data Fasting glucose >/= 126 [...] 9.7 8.5 - 10.3 mg/dL [facility] Bilirubin, total 0.3 0.1 - 1.2 mg/dL [facility] Protein, pl 7.1 6.5 - 8.5 g/dL [facility] Albumin 3.4(L) 3.5 - 5.0 g/dL [facility] Alk phos 411(H) 40 - 130 Units/L [facility] ALT 38 7 - 55 Units/L [facility] AST 36 10 - 50 Units/L [facility] Blood 08/28/2024 7:48 AM DRAFT ROLLER PICKER 08/28/2024 7:58 AM DRAFT ROLLER PICKER us Devon Carlin MD LAB BLOOD ORDERABLES Fin al Result [facility] [place] [address] from Last 3 Months Additional Health Concerns Infection Onset Date Last Indicated C. difficile Comment:Contact Precautions until patient has completed at least 7 -day course of therapy and has been diarrhea-free for at least 48 hours (whichever is longer) - Ben SUMMERS RN 11/11/24 11/07/2024 11/07/2024 Insurance MEDICARE [facility] MEDICARE MEDICARE Advance Directives For more information, please contact: [phone] Documents on File Type Date Recorded Patient Ordering Box Operator Expl anation Advance Directives and Livin g Will 12/27/2023 11:23 AM * Full Code (Latest Code Status on File) Date Activated Date Inactivated Comments 11/06/2024 7:21 PM 11/09/2024 9:39 PM * Full Code Date Activated Date Inactivated Comments 10/25/2024 8:55 PM 10/28/2024 11:06 PM * Full Code Date Activated Date Inactivated Comments 10/20/2024 3:38 AM 10/24/2024 10:09 PM * Full Code Date Activated Date Inactivated Comments 01/17/2024 10:18 PM 01/19/2024 6:34 PM * Full Code Date Activated Date Inactivated Comments 12/18/2023 11:47 PM 12/21/2023 7:08 PM Care Teams Home Housekeeper Relationship Specialty Start Date End Date Saw Ga MD [address] [place] [id number] PCP - General 10/20/16 Juan Alberto Hilario MD [address] [place] [address] [place] [address] PCP - Hospice Attending 11/05/24 Devon Carlin MD [address] [facility] DIV IM MEDICAL ONCOLOGY, [address] [place] [address] Medical Oncology 12/21/23
--- OUTSIDE RECORDS SUMMARY | 2024-11-25 16:42 | XMS_ITS | Clinical Summary ---
Author Organization Unknown Care Team Providers Care Ticket Taker Name Role Phone STEPHAN SHARMA, ALICE Unavailable Unavailable TARYN TRAMMELL, CHAYA Unavailable Unavailable СВЕТЛАНА CHOUDHURYN, SAUL Unavailable Unavailable BLAIR PT, ADRIAN Unavailable Unavailable Payers Payer Name Policy Type Policy Number Effective Date Expira tion Date MEDICARE.[facility]MRUDI.[facility] [id number] Problems Condition Name Condition Details Condition Category [...] OF NICOTINE DEPENDENCE Active 10-29 00:00: 00 DETENTION (CURRENT) USE OF SYSTEMIC STEROIDS Active - 00:00: 00 DETENTION (CURRENT) USE OF ORAL HYPOGLYCEMIC DRUGS Active 07-23 00:00: 00 IT 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 (CURRENT) USE OF OPIATE ANALGESIC Active 07-23 [...] 4 mg tablet 10-24 00:00: 00 Yes [id number] CHEMO 1 tablet DAILY 1 tablet DAILY (route: oral) Med Classific ation: Endocrine furosemide 20 mg tablet 10-24 00:00: 00 Yes [id number] DIURETIC 1 tablet DAILY 1 tablet DAILY (route: oral) Med Classific ation: Cardiovas cular Therapy Agents metoprolol succinate ER 25 mg tablet,exte nded release 24 hr - 00:00: 00 Yes [id number] HTN 1 tablet DAILY 1 tablet DAILY (route: oral) Med Classific ation: Cardiovas cular Therapy Agents duloxetine 60 mg capsule,del ayed release 10-16 00:00: 00 10-29 00:00 :00 No [id number] Per instruc tions Per instructio ns (route: oral) Med Classific ation: Central Nervous System Agents metformin ER 500 mg tablet,exte nded release 24 hr - 00:00: 00 Yes [id number] DM2 1 tablet DAILY 1 tablet DAILY (route: oral) Med Classific ation: Endocrine lubiproston e 24 mcg capsule - 00:00: 00 Yes [id number] CONSTIPATIO N 1 capsule TWICE DAILY 1 capsule TWICE DAILY (route: oral) Med Classific ation: Gastroint estinal Therapy Agents trazodone 50 mg tablet - 00:00: 00 10-29 00:00 :00 No [id number] Per instruc tions Per instructio ns (route: oral) Med Classific ation: Central Nervous System Agents atorvastati n 20 mg tablet 10-13 00:00: 00 Yes [id number] CHOLESTEROL 1 tablet DAILY 1 tablet DAILY (route: oral) Med Classific ation: Cardiovas cular Therapy Agents amlodipine 2.5 mg tablet 10-11 00:00: 00 10-29 00:00 :00 No [id number] Per instruc tions TODOS LOS DAILY AT Per instructio ns TODOS LOS DAILY AT (route: oral) Med Classific ation: Cardiovas cular Therapy Agents Lokelma 10 gram oral powder packet 10-11 00:00: 00 10-29 00:00 :00 No [id number] Per instruc tions Per instructio ns (route: oral) Med Classific ation: Electroly te Balance-N utritiona l Products polyethylen e glycol 3350 17 gram/dose oral powder 10-11 00:00: 00 Yes [id number] CONSTIPATIO N Per instruc tions DAILY Per instructio ns DAILY (route: oral) Med Classific ation: Gastroint estinal Therapy Agents acetaminoph en 500 mg tablet 10-29 00:00: 00 Yes [id number] PAIN 1 tablet EVERY 6 HOURS 1 tablet EVERY 6 HOURS (route: oral) Med Classific ation: Analgesic , Anti-infl ammatory or Antipyret ic Antacid 200 mg (as calcium carbonate 500 mg) chewable tablet 10-29 00:00: 00 Yes [id number] SUPPLEMENT 2 tablet 2 TIMES DAILY 2 tablet 2 TIMES DAILY (route: oral) Med Classific ation: Gastroint estinal Therapy Agents bisacodyl 5 mg tablet,neda yed release 10-29 00:00: 00 Yes [id number] CONSTIPATIO N 1 tablet DAILY 1 tablet DAILY (route: oral) Med Classific ation: Gastroint estinal Therapy Agents Compazine 10 mg tablet 10-29 00:00: 00 Yes [id number] NAUSEA 1 tablet EVERY 6 HOURS 1 tablet EVERY 6 HOURS (route: oral) Med Classific ation: Gastroint estinal Therapy Agents docusate sodium 100 mg capsule 10-29 00:00: 00 Yes [id number] CONSTIPATIO N 1 capsule DAILY 1 capsule DAILY (route: oral) Med Classific ation: Gastroint estinal Therapy Agents esomeprazol e magnesium 40 mg capsule,del ayed release 10-29 00:00: 00 Yes [id number] GERD 1 capsule DAILY 1 capsule DAILY (route: oral) Med Classific ation: Gastroint estinal Therapy Agents flecainide 100 mg tablet 10-29 00:00: 00 Yes [id number] AFIB 1 tablet DAILY 1 tablet DAILY (route: oral) Med Classific ation: Cardiovas cular Therapy Agents K-Phos Original 500 mg soluble tablet 10-29 00:00: 00 Yes [id number] SUPPLEMENT 1 tablet 2 TIMES DAILY 1 tablet 2 TIMES DAILY (route: oral) Med Classific ation: Genitouri nary Therapy lidocaine 5 % topical patch 10-29 00:00: 00 Yes [id number] BACK PAIN 1 adhesiv e patch, medicat ed EVERY 12 HOURS 1 adhesive patch, medicated EVERY 12 HOURS (route: topical) Med Classific ation: Dermatolo gical oxycodone 10 mg tablet 10-29 00:00: 00 Yes [id number] PAIN 1 tablet EVERY 6 HOURS 1 tablet EVERY 6 HOURS (route: oral) Med Classific ation: Analgesic , Anti-infl ammatory or Antipyret ic Senna Plus 8.6 mg-50 mg capsule 10-29 00:00: 00 Yes [id number] CONSTIPATIO N 2 capsule 2 TIMES DAILY [...] PHYSICIANS STEPHAN. RN TO OBSERVE AND ASSESS, 3D SPECIALIST/KNOWLEDGE MANAGER TO OBSERVE FOR RISK FOR FALLS AND INSTRUCT IN FALL PREVENTION, HOME SAFETY, MEDICATION MANAGEMENT, INFECTION PREVENTION, AND NUTRITION MANAGEMENT. RN/3D SPECIALIST/KNOWLEDGE MANAGER NURSE MAY PERFORM O2 SATURATION LEVEL ON ADMISSION AND PRN FOR 1 FOR RN TO ASSESS/3D SPECIALIST TO OBSERVE PATIENT, WITH NOTIFICATION TO THE PHYSICIAN IF SATURATION IS 90% IN THE ABSENCE OF MORE SPECIFIC PARAMETERS FROM THE PHYSICIAN. AGENCY MAY PERFORM A RESUMPTION OF CARE VISIT FOLLOWING ANY HOSPITAL ADMISSION. RN/3D SPECIALIST/KNOWLEDGE MANAGER TO MONITOR CO-MORBID CONDITIONS LISTED ON THE PLAN OF CARE AND ANY NEW CONDITIONS THAT PRESENT THEMSELVES DURING THIS EPISODE TO IDENTIFY CHANGES AND INTERVENE TO MINIMIZE COMPLICATIONS. [code = RN TO OBSERVE, ASSESS, EVALUATE, AND DEVELOP AN INDIVIDUALIZED PLAN OF CARE. AGENCY MAY ACCEPT ORDERS FROM CONSULTING PHYSICIANS STEPHAN. RN TO OBSERVE AND ASSESS, 3D SPECIALIST/KNOWLEDGE MANAGER TO OBSERVE FOR RISK FOR FALLS AND INSTRUCT IN FALL PREVENTION, HOME SAFETY, MEDICATION MANAGEMENT, INFECTION PREVENTION, AND NUTRITION MANAGEMENT. RN/3D SPECIALIST/KNOWLEDGE MANAGER NURSE MAY PERFORM O2 SATURATION LEVEL ON ADMISSION AND PRN FOR 1 FOR RN TO ASSESS/3D SPECIALIST TO OBSERVE PATIENT, WITH NOTIFICATION TO THE PHYSICIAN IF SATURATION IS 90% IN THE ABSENCE OF MORE SPECIFIC PARAMETERS FROM THE PHYSICIAN. AGENCY MAY PERFORM A RESUMPTION OF CARE VISIT FOLLOWING ANY HOSPITAL ADMISSION. RN/3D SPECIALIST/KNOWLEDGE MANAGER TO MONITOR CO-MORBID CONDITIONS LISTED ON THE PLAN OF CARE AND ANY NEW CONDITIONS THAT PRESENT THEMSELVES DURING THIS EPISODE TO IDENTIFY CHANGES AND INTERVENE TO MINIMIZE COMPLICATIONS.] Future Scheduled Test MEDICATION MANAGEMENT; RN/3D SPECIALIST/KNOWLEDGE MANAGER TO REVIEW MEDICATIONS FOR INTERACTIONS, EFFECTIVENESS OF DRUG THERAPY, AND SIGNS/SYMPTOMS OF ADVERSE REACTIONS. MAY INSTRUCT AND REINFORCE MEDICATION TEACHING RELATED TO THE USE OF MEDICATIONS, DOSAGE, FREQUENCY, PURPOSE, SIDE EFFECTS, AND TO REPORT COMPLICATIONS. [code = MEDICATION MANAGEMENT; RN/3D SPECIALIST/KNOWLEDGE MANAGER TO REVIEW MEDICATIONS FOR INTERACTIONS, EFFECTIVENESS OF DRUG THERAPY, AND SIGNS/SYMPTOMS OF ADVERSE REACTIONS. MAY INSTRUCT AND REINFORCE MEDICATION TEACHING RELATED TO THE USE OF MEDICATIONS, DOSAGE, FREQUENCY, PURPOSE, SIDE EFFECTS, AND TO REPORT COMPLICATIONS.] Future Scheduled Test RISK FOR H OSPITALIZATION; RN TO ASSESS/TEACH, KNOWLEDGE MANAGER/3D SPECIALIST TO OBSERVE/TEACH PATIENT/CAREGIVER ON RISK FOR HOSPITALIZATION/EMERGENCY ROOM VISITS, TEACH SIGNS AND SYMPTOMS THAT PUT PATIENT AT RISK, WHEN TO NOTIFY NURSE/PHYSICIAN OF COMPLICATIONS/DECLINE, AND WHEN TO CALL 911. [code = RISK FOR HOSPITALIZATION; RN TO ASSESS/TEACH, KNOWLEDGE MANAGER/3D SPECIALIST TO OBSERVE/TEACH PATIENT/CAREGIVER ON RISK FOR HOSPITALIZATION/EMERGENCY ROOM VISITS, TEACH SIGNS AND SYMPTOMS THAT PUT PATIENT AT RISK, WHEN TO NOTIFY NURSE/PHYSICIAN OF COMPLICATIONS/DECLINE, AND WHEN TO CALL 911.] Future Scheduled Test CARDIOVASC ULAR SYSTEM; RN TO ASSESS/TEACH, 3D SPECIALIST/KNOWLEDGE MANAGER TO OBSERVE/TEACH RELATED TO ALTERED CARDIOVASCULAR STATUS TO MINIMIZE COMPLICATIONS AND REDUCE HOSPITALIZATION. [code = CARDIOVASCULAR SYSTEM; RN TO ASSESS/TEACH, 3D SPECIALIST/KNOWLEDGE MANAGER TO OBSERVE/TEACH RELATED TO ALTERED CARDIOVASCULAR STATUS TO MINIMIZE COMPLICATIONS AND REDUCE HOSPITALIZATION.] Future Scheduled Test PAIN MANAG EMENT; RN TO ASSESS AND TEACH, KNOWLEDGE MANAGER/3D SPECIALIST TO OBSERVE AND TEACH AND PROVIDE EDUCATION ON PAIN MANAGEMENT TECHNIQUES. [code = PAIN MANAGEMENT; RN TO ASSESS AND TEACH, KNOWLEDGE MANAGER/3D SPECIALIST TO OBSERVE AND TEACH AND PROVIDE EDUCATION ON PAIN MANAGEMENT TECHNIQUES.] Future Scheduled Test DIABETES M ANAGEMENT; RN TO ASSESS AND TEACH, KNOWLEDGE MANAGER/3D SPECIALIST TO OBSERVE AND TEACH INSTRUCTIONS OF DIABETIC CARE TO INCLUDE: DIET DIABETIC, SKIN CARE, SIGNS AND SYMPTOMS OF HYPO/HYPERGLYCEMIA, PROPER ADMINISTRATION OF DIABETIC MEDICATION. RN/KNOWLEDGE MANAGER/3D SPECIALIST TO INSTRUCT ON DIABETIC FOOT CARE AND MONITOR FOR SKIN LESIONS ON LOWER EXTREMITIES. BLOOD GLUCOSE TESTING PRN FREQ. RN TO ASSESS AND TEACH, KNOWLEDGE MANAGER/3D SPECIALIST TO OBSERVE AND TEACH PATIENT/CAREGIVER ABILITY TO PERFORM AND RECORD BLOOD GLUCOSE TESTING ORDERED AND TO REPORT ABNORMAL FINDINGS TO PHYSICIAN. RN/KNOWLEDGE MANAGER/3D SPECIALIST MAY PERFORM BLOOD GLUCOSE TEST NEEDED. NO ORDER TO CHECK BGL RN/KNOWLEDGE MANAGER/3D SPECIALIST TO INSTRUCT PATIENT ON IMPORTANCE OF HGBA1C MONITORING, KIDNEY FUNCTION TEST, EYE AND FOOT EXAMS. [code = DIABETES MANAGEMENT; RN TO ASSESS AND TEACH, KNOWLEDGE MANAGER/3D SPECIALIST TO OBSERVE AND TEACH INSTRUCTIONS OF DIABETIC CARE TO INCLUDE: DIET DIABETIC, SKIN CARE, SIGNS AND SYMPTOMS OF HYPO/HYPERGLYCEMIA, PROPER ADMINISTRATION OF DIABETIC MEDICATION. RN/KNOWLEDGE MANAGER/3D SPECIALIST TO INSTRUCT ON DIABETIC FOOT CARE AND MONITOR FOR SKIN LESIONS ON LOWER EXTREMITIES. BLOOD GLUCOSE TESTING PRN FREQ. RN TO ASSESS AND TEACH, KNOWLEDGE MANAGER/3D SPECIALIST TO OBSERVE AND TEACH PATIENT/CAREGIVER ABILITY TO PERFORM AND RECORD BLOOD GLUCOSE TESTING ORDERED AND TO REPORT ABNORMAL FINDINGS TO PHYSICIAN. RN/KNOWLEDGE MANAGER/3D SPECIALIST MAY PERFORM BLOOD GLUCOSE TEST NEEDED. NO ORDER TO CHECK BGL RN/KNOWLEDGE MANAGER/3D SPECIALIST TO INSTRUCT PATIENT ON IMPORTANCE OF HGBA1C MONITORING, KIDNEY FUNCTION TEST, EYE AND FOOT EXAMS.] Future Scheduled Test GENITOURIN FRANCIS MANAGEMENT; RN TO ASSESS AND TEACH, 3D SPECIALIST/KNOWLEDGE MANAGER TO OBSERVE AND TEACH RELATED TO ALTERED GENITOURINARY STATUS TO MINIMIZE COMPLICATIONS AND REDUCE HOSPITALIZATION. [code = GENITOURINARY MANAGEMENT; RN TO ASSESS AND TEACH, 3D SPECIALIST/KNOWLEDGE MANAGER TO OBSERVE AND TEACH RELATED TO ALTERED GENITOURINARY STATUS TO MINIMIZE COMPLICATIONS AND REDUCE HOSPITALIZATION.] Future Scheduled Test URINARY MO LECULAR TESTING PROTOCOL UP TO 2 PRN RN/3D SPECIALIST/KNOWLEDGE MANAGER VISITS MAY BE PERFORMED FOR S/S OF UTI. RN TO ASSESS, 3D SPECIALIST/KNOWLEDGE MANAGER TO OBSERVE INITIATION OF UTI PROTOCOL. RN/KNOWLEDGE MANAGER/3D SPECIALIST TO INSTRUCT PATIENT AND/OR CAREGIVER ON S/S OF UTI TO REPORT TO RN/KNOWLEDGE MANAGER/3D SPECIALIST IF NEW OR WORSENING SYMPTOMS. DRINK PLENTY OF WATER THROUGHOUT THE DAY TO MAINTAIN HYDRATION (UNLESS CONTRAINDICATED.) URINATE WHEN THE URGE IS FELT, DO NOT WAIT. WASH GENITALS DAILY. WIPE FROM FRONT TO BACK AFTER HAVING A BOWEL MOVEMENT. RN/KNOWLEDGE MANAGER/3D SPECIALIST TO OBTAIN MOLECULAR URINE TESTING BY OPTION 1 OR OPTION 2 (OPTION 1) RN/KNOWLEDGE MANAGER/3D SPECIALIST TO OBTAIN U/A WITH REFLEX TO UTI PANEL (MOLECULAR) VIA CLEAN CATCH URINE AND IF UNABLE TO OBTAIN MAY PERFORM AN IN AND OUT CATH. IF PATIENT HAS INDWELLING CATHETER MAY OBTAIN FROM SAMPLING PORT. (OPTION 2) RN/KNOWLEDGE MANAGER/3D SPECIALIST TO OBTAIN UTI PANEL (MOLECULAR) VIA SWAB COLLECTION METHOD FROM ADULT BRIEF/DIAPER OR PAD IF PATIENT IS INCONTINENT. NOTIFY PROVIDER OF RESULTS AND OBTAIN FURTHER ORDERS. [code = URINARY MOLECULAR TESTING PROTOCOL UP TO 2 PRN RN/3D SPECIALIST/KNOWLEDGE MANAGER VISITS MAY BE PERFORMED FOR S/S OF UTI. RN TO ASSESS, 3D SPECIALIST/KNOWLEDGE MANAGER TO OBSERVE INITIATION OF UTI PROTOCOL. RN/KNOWLEDGE MANAGER/3D SPECIALIST TO INSTRUCT PATIENT AND/OR CAREGIVER ON S/S OF UTI TO REPORT TO RN/KNOWLEDGE MANAGER/3D SPECIALIST IF NEW OR WORSENING SYMPTOMS. DRINK PLENTY OF WATER THROUGHOUT THE DAY TO MAINTAIN HYDRATION (UNLESS CONTRAINDICATED.) URINATE WHEN THE URGE IS FELT, DO NOT WAIT. WASH GENITALS DAILY. WIPE FROM FRONT TO BACK AFTER HAVING A BOWEL MOVEMENT. RN/KNOWLEDGE MANAGER/3D SPECIALIST TO OBTAIN MOLECULAR URINE TESTING BY OPTION 1 OR OPTION 2 (OPTION 1) RN/KNOWLEDGE MANAGER/3D SPECIALIST TO OBTAIN U/A WITH REFLEX TO UTI PANEL (MOLECULAR) VIA CLEAN CATCH URINE AND IF UNABLE TO OBTAIN MAY PERFORM AN IN AND OUT CATH. IF PATIENT HAS INDWELLING CATHETER MAY OBTAIN FROM SAMPLING PORT. (OPTION 2) RN/KNOWLEDGE MANAGER/3D SPECIALIST TO OBTAIN UTI PANEL (MOLECULAR) VIA SWAB COLLECTION METHOD FROM ADULT BRIEF/DIAPER OR PAD IF PATIENT IS INCONTINENT. NOTIFY PROVIDER OF RESULTS AND OBTAIN FURTHER ORDERS.] Future Scheduled Test CANCER MAN AGEMENT; RN TO ASSESS AND TEACH, KNOWLEDGE MANAGER/3D SPECIALIST TO OBSERVE AND TEACH AND PROVIDE EDUCATION ON CANCER. [code = CANCER MANAGEMENT; RN TO ASSESS AND TEACH, KNOWLEDGE MANAGER/3D SPECIALIST TO OBSERVE AND TEACH AND PROVIDE EDUCATION ON CANCER.] Future Scheduled Test FALL REDUC TION MANAGEMENT; RN TO ASSESS AND OBSERVE, 3D SPECIALIST/KNOWLEDGE MANAGER TO OBSERVE FALL RISK FACTORS AND EDUCATE PATIENT/CAREGIVER ON STRATEGIES TO MINIMIZE THE RISK OF FALLING. [code = FALL REDUCTION MANAGEMENT; RN TO ASSESS AND OBSERVE, 3D SPECIALIST/KNOWLEDGE MANAGER TO OBSERVE FALL RISK FACTORS AND EDUCATE PATIENT/CAREGIVER ON STRATEGIES TO MINIMIZE THE RISK OF FALLING.] Future Scheduled Test HOME HEALT H AIDE SERVICE FOR ASSISTANCE WITH PERSONAL CARE, HYGIENE AND ACTIVITIES OF DAILY LIVING. [code = HOME HEALTH AIDE SERVICE FOR ASSISTANCE WITH PERSONAL CARE, HYGIENE AND ACTIVITIES OF DAILY LIVING.] Future Scheduled Test PRN VISITS ; NUMBER OF RN/3D SPECIALIST/KNOWLEDGE MANAGER VISITS: 1 RN/3D SPECIALIST/KNOWLEDGE MANAGER TO PERFORM: FINISHING RANGE FEEDER FOR THE FOLLOWING REASONS: URINE MOLECULAR [code = PRN VISITS; NUMBER OF RN/3D SPECIALIST/KNOWLEDGE MANAGER VISITS: 1 RN/3D SPECIALIST/KNOWLEDGE MANAGER TO PERFORM: FINISHING RANGE FEEDER FOR THE FOLLOWING REASONS: URINE MOLECULAR ] [...] End Date/Time Encounter Type Admission Type Attending [facility] Care Department Encounter ID Discharge Date Discharge Status Discharge Condition Discharge Reason Percent Goals Met 2024-10-29 00:00:00 2024-12-27 00:00:00 Outpatient NEW ADMISSION [facility] [id number] 88.24
--- OUTSIDE RECORDS SUMMARY | 2024-11-25 16:42 | XMS_ITS ---
Author Organization [facility] [id number] Address [address] [place] [address] Care Team Providers Care Director Of Photography Name Role Phone Saw Ga MD Primary Care Provider [phone] Devon Carlin MD Unavailable [phone] Juan Alberto Hilario MD Unavailable [phone] Active Problems Problem Noted Date Diagnosed Date [...] Plan (11/09/2024 1:17 PM CDT): Presenting from [facility] with two days of nausea, vomiting, diarrhea, [...] Plan (11/08/2024 10:51 AM CDT): Presenting from [facility] with two days of nausea, vomiting, diarrhea, [...] Plan (11/07/2024 10:37 AM CDT): Presenting from [facility] with two days of nausea, vomiting, diarrhea, [...] Plan (11/06/2024 9:11 PM CDT): Presenting from [facility] with two days of nausea, vomiting, diarrhea, [...] (11/09/2024 1:17 PM CDT): MRI L spine 10/23 showed spine mets leading to compression of [...] (10/28/2024 11:43 AM CDT): MRI L spine 10/23 showed spine mets leading to compression of [...] but pt and family pursuing therapy for [facility] onc consult in AM; steroid taper plan Assessment & Plan (11/06/2024 9:11 PM CDT): Follows Dr. Carlin. Progressive prostate cancer through multiple therapies, currently on C1 carboplatin and cabazitaxel on 10/30/24. Has had prior discussions regarding hospice but pt and family pursuing therapy for [facility] onc consult in AM Assessment & Plan [...] Plan (12/21/2023 12:21 PM CDT): Follows with [facility] oncology for prostate cancer, initially diagnosed T3N0 05/2021, s/p biopsy with do score 8,9,10 adeno in 01/01 cores. S/p [...] outpatient follow-up with the oncologist here at [facility]. Oncology to arrange follow-up at discharge Assessment [...] Assessment & Plan (11/23/2023 2:35 PM CDT): / BI consult ordered patient has cleared for [...] plans. 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 This patient was staffed with Dr. Avendano The patient should be seen in clinic in 4-6 weeks with a non-contrast head CT. OK for [facility] for DVT prophylaxis and [...] to recurrent falls and prior SDH 11/2023. Custodian Supervisor discussed Watchman device 02/13/24 but pt deferred. [...] home Coumadin, continue metoprolol for rate control Custodian Supervisor Dr Andi benavides (11/21) plan for watchman in the future Current Treatment and Therapy Plans Denosumab Every 12 Weeks* Plan Start Date:10/16/2024 Plan Provider:Devon Carlin MD Linked Problems Metastasis to bone (HCC)Pros ackerman cancer (HCC) Treatment Medications Current Day (Day 1 , Cycle 2 - Planned for 01/08/2025) Next Day (Day 1, Cycle 3 - Planned for 04/02/2025) No medications scheduled. No medications schedul ed. No medications scheduled. IV Maintenance Therapy Plan* Plan Start Date:05/01/2024 Plan Provider:Devon Carlin MD Linked Problems Metastasis to bone (HCC)Pros ackerman cancer (HCC) Treatment Medications No medications scheduled. Leuprolide Every 3 Months - Prostate* Plan Start Date:02/07/2024 Plan Provider:Devon Carlin MD Linked Problems Metastasis to bone (HCC)Pros ackerman cancer (HCC) Treatment Medications Current Day (Day 1 , Cycle 5 - Planned for 01/08/2025) Next Day (Day 1, Cycle 6 - Planned for 04/02/2025) leuprolide (3 month) (LUPRON) leuprolide (3 month) (LUPRON) injection 22.5 mg leuprolide (3 month) (LUPRON) injection 22.5 mg Past Treatment and Therapy Plans Oncology Chemotherapy Treatment Plan Name Start Date Discontinue Date Treatment Medications Discontinue Reason Plan Provider Cycles DOCEtaxel (D1, D8) 21 Day Cycles - Prostate 4 09/18/2024 dexAMETHasone (DECADRON)DOCEta xel (TAXOTERE)DOCEta xel (TAXOTERE) IVPB in 100 mL (vial 10mg/mL)DOCEtaxe l (TAXOTERE) IVPB in 100 mL (vial 20mg/mL) Progressive Disease Devon Carlin MD 10 of 15 cycles started Oncology Treatment (3) Plan Name Start Date Discontinue Date Treatment Medications Discontinue Reason Plan Provider Cycles CABAZItaxel / CARBOplatin 21 Day Cycles - Prostate 10/31/19 25 11/19/2024 cabazitaxel (JEVTANA)CABAZIta xel (JEVTANA) IVPB in 250 mlCARBOplatin (PARAPLATIN)CARBO platin (PARAPLATIN) IVPB in 250 mLdexAMETHasone (DECADRON) Patient Preference Devon Dos Santos MD 1 of 10 cycles started CABAZItaxel 21 Day Cycles - Prostate 10/31/19 25 10/27/2024 cabazitaxel (JEVTANA) Provider Discretion Devon Dos Santos MD Treatment not started Radiation Treatments (No Episode) * Course C1 LSPINE_202411/10/2024 - 11/10/2024 Treatment Period Energy Fraction Dose Fractions Total Dose Plans Planned LSPINE_SACRUM 11/10/2024 - 11/10/2024 800 1 / 800 Reference Points Delivered LSPINE_DPV 11/10/2024 - 11/10/2024 800 Lifetime Dose Tracking * Chemical Lifetime Dose Automatic Entry Manual Entr y DLP 4,997 mGycm 4,997 mGycm 0 mGycm Resolved Problems Problem Noted Date Diagnosed Date [...]
--- OUTSIDE RECORDS SUMMARY | 2024-11-25 16:42 | XMS_ITS | Referral Summary ---
Author Organization [facility] [id number] Address [address] [place] [address] Care Team Providers Care Tax Accountant Name Role Phone Saw Ga MD Primary Care Provider [phone] Devon Carlin MD Unavailable [phone] Juan Alberto Hilario MD Unavailable [phone] Encounters Date Type Department Care Team Description 11/19/2024 Telephone [facility] Oncology [facility] Floor [address] [place] [address] Devon Carlin MD 11/18/2024 Telephone [facility] - Palliative Care [address] [facility] [place] [address] dEna Beyer RN 11/17/2024 Telephone [facility] Oncology [address] [facility] Floor [address] [place] [id number] Devon Carlin MD 11/10/2024 Completion of Therapy [facility] Radiation Oncology [address] [facility] [place] [address] Radha Mo PA 11/10/2024 Orders Only RAD ONC TREATMENTS Miscellaneous, Not In File 11/10/2024 OTV [facility] Radiation Oncology [address] [facility] [place] [address] Ino Omalley MD 11/10/2024 3:07 PM CDT - 11/10/2024 11:59 PM CDT Hospital Encounter [facility] Radiation Oncology [address] [place] [address] Moriah Gentile MD Discharge Disposition: Discharge to home or self care 11/06/2024 6:04 PM CDT - 11/09/2024 5:29 PM CDT Hospital Encounter [facility] 1 [place] [address] Devon Carlin MD Chow, Kelsey Sarah, MD Nausea (Primary Dx) Discharge Disposition: Discharge to home or self care 11/07/2024 Documentation [facility] Radiation Oncology [address] [place] [address] Melissa Pitt RN 11/06/2024 3:37 PM CDT - 11/06/2024 11:59 PM CDT Hospital Encounter [facility] [address] [place] [address] Discharge Disposition: Discharge to home or self care 11/06/2024 Telephone [facility] [address] [facility] [address] [place] [address] Luisa Naranjo, RN 11/05/2024 Orders Only [facility] Oncology [address] [facility] Floor [address] [place] [address] Devon Carlin MD Prostate cancer (HCC) (Primary Dx); Metastasis to bone (HCC); Physical deconditioning; Cancer related pain 11/05/2024 Telephone [facility] Radiation Oncology [facility] [place] [address] Melissa Pitt RN 11/03/2024 Orders Only [facility] Oncology [address] [place] [address] [address] [place] [address] Devon Carlin MD Prostate cancer (HCC) (Primary Dx); Metastasis to bone (HCC); Cancer related pain 10/30/2024 Orders Only [facility] - Infusion [address] [place] [address] [address] [place] [address] Law Indigo Jannette, mary lou 10/30/2024 11:30 AM CDT Infusion [facility] Infusion [address] [place] [address] [address] [place] [address] Persons encountering health services in other specified circumstances (Primary Dx); Metastasis to bone (HCC); Prostate cancer (HCC) 10/30/2024 8:45 AM CDT Lab [facility] - Lab Collection [address] [place] [address] [address] [place] [address] Metastasis to bone (HCC); Prostate cancer (HCC); Persons encountering health services in other specified circumstances 10/30/2024 9:45 AM CDT Office Visit [facility] Oncology [address] [place] [address] Devon Carlin MD Prostate cancer (HCC) (Primary Dx); Metastasis to bone (HCC); Persons encountering health services in other specified circumstances 10/25/2024 10:06 AM CDT - 10/28/2024 7:01 PM CDT Hospital Encounter [address] [address] Herbie Moses MD Heitsch, MD Raegan Linares Mark Lee, MD Zhang, Jiahua, DO Brito Rivera, Natalia, MD Prostate cancer (HCC) (Primary Dx); Lactate blood increase; Fever, unspecified fever cause; Body aches; Cancer associated pain; Physical deconditioning Discharge Disposition: Discharge to home or self care 10/27/2024 Documentation [facility] Radiation Oncology [address] [place] [address] Anna Marie Story, JP 10/27/2024 8:05 AM CDT Ancillary Procedure [facility] Vascular Lab IP 1 [facility] [address] [place] [address] 10/27/2024 1:25 PM CDT - 10/27/2024 11:59 PM CDT Hospital Encounter [facility] Radiation Oncology [address] [place] [address] Moriah Gentile MD Discharge Disposition: Discharge to home or self care 10/24/2024 Documentation [facility] Radiation Oncology [address] [place] [address] Stephanie Almendarez RN 10/24/2024 Telephone [facility] Radiation Oncology [address] [place] [address] Stephanie Almendarez RN 10/19/2024 5:14 PM CDT - 10/24/2024 6:04 PM CDT Hospital Encounter [address] [address] Sterling Mejias MD PhD Sundermeyer, Mark Lee, MD Kichura, Daniel J., MD Hypervolemia, unspecified hypervolemia type (Primary Dx); Acute congestive heart failure, unspecified heart failure type (HCC); Prostate cancer (HCC) Discharge Disposition: Discharge to home or self care 10/20/2024 6:55 AM CDT Ancillary Procedure [facility] Vascular Lab IP 1 [facility] [address] [place] [address] 10/17/2024 Telephone [facility] Oncology [address] [facility] Floor [address] [place] [address] Devendra Jane RN 10/16/2024 Telephone Radiology [address] [place] [address] Aniyah Ward RT 10/16/2024 Orders Only [facility] Infusion [address] [place] [address] Indigo Bal mary lou 10/16/2024 9:15 AM CDT Lab [facility] Lab Collection [address] [place] [address] Metastasis to bone (HCC); Prostate cancer (HCC); Prostate cancer metastatic to bone (HCC) 10/16/2024 11:15 AM CDT Infusion [facility] [address] [place] [address] Prostate cancer (HCC) (Primary Dx); Metastasis to bone (HCC) 10/16/2024 10:00 AM CDT Office Visit [facility] Oncology [facility] Floor [address] [place] [address] Devon Carlin MD Prostate cancer (HCC) (Primary Dx); Prostate cancer metastatic to bone (HCC); Metastasis to bone (HCC) 10/16/2024 9:00 AM CDT Lab [facility] Oncology Lab [address] [facility] Floor [address] [place] [address] Metastasis to bone (HCC); Prostate cancer (HCC) 10/10/2024 12:23 PM CDT - 10/10/2024 11:59 PM CDT Hospital Encounter [facility] - PET [address] [place], [place] [address] Discharge Disposition: Discharge to home or self care 10/10/2024 12:23 PM CDT - 10/10/2024 11:59 PM CDT Hospital Encounter [facility] [place] - PET [address] [place] [address] Metastasis to bone (HCC); Prostate cancer (HCC) Discharge Disposition: Discharge to home or self care 09/30/2024 Orders Only [facility] Oncology [address] [place] [address] Devon Carlin MD Prostate cancer (HCC) (Primary Dx); Metastasis to bone (HCC) 09/24/2024 1:30 PM SLITTING MACHINE OPERATOR HELPER Office Visit [facility] Neurosurgery [address], [address] [place] [address] Belkis Hoang PA Metastatic malignant neoplasm, unspecified site (HCC) (Primary Dx); Metastasis to bone (HCC) 09/23/2024 5:50 PM SLITTING MACHINE OPERATOR HELPER - 09/23/2024 11:59 PM SLITTING MACHINE OPERATOR HELPER Hospital Encounter [facility] - MRI [address] [place] [address] Metastasis to bone (HCC) Discharge Disposition: Discharge to home or self care 09/18/2024 7:30 AM SLITTING MACHINE OPERATOR HELPER Lab [facility] Lab Collection [address] [place] [address] Metastasis to bone (HCC); Prostate cancer (HCC) 09/18/2024 8:30 AM SLITTING MACHINE OPERATOR HELPER Office Visit [facility] Oncology [address] [place] [address] Devon Carlin MD Prostate cancer (HCC) (Primary Dx); Metastasis to bone (HCC) 09/04/2024 7:30 AM SLITTING MACHINE OPERATOR HELPER Infusion [facility] Infusion [address] [place] [address] Prostate cancer (HCC) (Primary Dx); Metastasis to bone (HCC) 09/04/2024 6:45 AM SLITTING MACHINE OPERATOR HELPER Lab [facility] Lab Collection [address] [place] [address] Metastasis to bone (HCC); Prostate cancer (HCC) 08/29/2024 Orders Only [facility] Oncology [address] [place] [address] Devon Carlin MD 08/28/2024 9:30 AM SLITTING MACHINE OPERATOR HELPER Infusion [facility] [address] [place] [address] Prostate cancer (HCC) (Primary Dx); Metastasis to bone (HCC) 08/28/2024 7:30 AM SLITTING MACHINE OPERATOR HELPER Lab [facility] Lab Collection [address] [place] [address] Metastasis to bone (HCC); Prostate cancer (HCC) 08/28/2024 8:30 AM SLITTING MACHINE OPERATOR HELPER Office Visit [facility] Oncology [address] [facility] Floor [address] [place] [address] Devon Carlin MD Prostate cancer (HCC) (Primary Dx); Metastasis to bone (HCC) from Last 3 Months Allergies Active Allergy Reactions Criticality Noted Date Comments Duloxetine Mental status changes Low 10/27/2024 Metformin Other (See comments) 10/27/2024 Lactic acidosis Docetaxel Shortness of breath,Itching,Dizziness ,Flushing (skin) High 06/12/2024 Significant event note 01/03/24 Trazodone Mental status changes Low 10/27/2024 Medications polyethylene glycol (MIRALAX) 17 gram/dose bulk powderIndicatio ns:constipation Take 17 g by mouth daily 510 g Active lidocaine (LIDODERM) 5 % Apply 1 patch topically daily Remove after 12 hours (need 12 hour patch free period). 10 patch 024 Active acetaminophen (TYLENOL) 500 mg tablet Take 1 tablet (500 mg total) by mouth every 6 (six) hours as needed for pain 30 tablet 024 Active flecainide (TAMBOCOR) 100 mg tablet TOME 1 TABLETA POR VIA ORAL DOS VECES AL REENA 180 tablet 1 Active Additional Information Patient taking differently: 100 mg oral 2 times daily, Reported on 10/30/[address] (NexIUM) 40 mg capsule TOME 1 C PSULA POR V A ORAL A DIARIO 024 Active metoprolol XL (TOPROL-XL) 25 mg extended release tabletIndicatio ns:Essential hypertension TAKE 1 TABLET (25 MG TOTAL) BY MOUTH DAILY. 90 tablet 3 024 2024 Active atorvastatin (LIPITOR) 20 mg tablet TOME MIKY TABLETA TODOS LOS KAY 90 tablet 3 025 Active lubiprostone (AMITIZA) 24 mcg capsule 025 Active calcium carbonate (TUMS) 500 mg (200 mg elemental calcium) chewable tablet Take 2 tablet/chew tab (1,000 mg total) by mouth 2 (two) times a day 120 tablet/jony w tab 025 Active furosemide (LASIX) 20 mg tablet Take [...] 3 (three) times a day 90 capsule 2025 Active empagliflozin (JARDIANCE) 10 mg tablet [...] mg total) by mouth nightly 30 tablet 2024 Active al & mag hydroxide simethicone-dip henhydramine-li docaine-nystati n (MAGIC MOUTHWASH) suspension 1-3-4-1Indicati ons:Prostate cancer (HCC),Metastasi s to bone (HCC),Physical deconditioning, Cancer related pain Swish and swallow 15 mL every 4 (four) hours as needed (For Tx related sore-throat and potential mouth sores) 500 mL 3 Active senna-docusate (PERICOLACE) 8.6-50 mg Take 2 tablets by mouth 2 (two) times a day Active dexAMETHasone (DECADRON) 4 mg tablet Take 1 tablet (4 mg total) by mouth 2 (two) times a day Active melatonin 5 mg tablet Take 1 tablet (5 mg total) by mouth daily 30 tablet Active senna-docusate (PERICOLACE) 8.6-50 mg Take 1 [...] 3 (three) times a day 90 tablet 025 2024 Discontinued( Duplicate order) potassium phosphate, monobasic, (K-PHOS) 500 mg (3.6 mmol of phosphorus) tablet Take 1 tablet (500 mg total) by mouth 2 (two) times a day 60 tablet 025 2024 Discontinued( Stop Taking at Discharge) semaglutide (RYBELSUS) 3 mg tablet Take 1 tablet (3 mg total) by mouth cartographic technician before breakfast 30 tablet 025 2024 Discontinued( Stop Taking at Discharge) senna-docusate (PERICOLACE) 8.6-50 mg Take 2 tablets by mouth 2 (two) times a day 60 tablet 025 2024 Discontinued oxyCODONE (ROXICODONE) 10 mg tabletIndicatio ns:Pain Take 1 tablet (10 mg total) by mouth every 6 (six) hours as needed for pain for up to 7 days 28 tablet 2024 thiamine (VITAMIN B1) 100 mg tablet Take 1 tablet (100 mg total) by mouth daily for 7 doses 7 tablet 2024 Discontinued( Stop Taking at Discharge) dexAMETHasone (DECADRON) 4 mg tabletIndicatio ns:Prostate cancer (HCC),Metastasi s to bone (HCC),Persons encountering health services in other specified circumstances Take 8 mg (2 tabs) by mouth once on Day 2, then 8 mg (2 tabs) twice daily on Days 3 and 4. 30 tablet 3 2024 Discontinued ondansetron (ZOFRAN) 8 mg tabletIndicatio [...] simethicone-dip henhydramine-li docaine-nystati n (MAGIC MOUTHWASH) suspension 8-9-6-1Indicati ons:Prostate cancer (HCC),Metastasi s to bone (HCC),Physical deconditioning, Cancer related pain Swish and swallow 15 mL every 4 (four) hours as needed (For Tx related sore-throat and potential mouth sores) 500 mL 3 025 2024 Discontinued( Reorder) fidaxomicin (DIFICID) tabletIndicatio ns:Clostridioid es difficile infection Take 1 tablet (200 mg total) by mouth 2 (two) times a day 20 tablet 025 2024 Discontinued( Stop Taking at [...] Plan (11/09/2024 1:17 PM CDT): Presenting from [facility] with two days of nausea, vomiting, diarrhea, [...] Plan (11/08/2024 10:51 AM CDT): Presenting from [facility] with two days of nausea, vomiting, diarrhea, [...] Plan (11/07/2024 10:37 AM CDT): Presenting from [facility] with two days of nausea, vomiting, diarrhea, [...] Plan (11/06/2024 9:11 PM CDT): Presenting from [facility] with two days of nausea, vomiting, diarrhea, [...] but pt and family pursuing therapy for [facility] onc consult in AM; steroid taper plan Assessment & Plan (11/06/2024 9:11 PM CDT): Follows Dr. Carlin. Progressive prostate cancer through multiple therapies, currently on C1 carboplatin and cabazitaxel on 10/30/24. Has had prior discussions regarding hospice but pt and family pursuing therapy for [facility] onc consult in AM Assessment & Plan [...] Plan (12/21/2023 12:21 PM CDT): Follows with [facility] oncology for prostate cancer, initially diagnosed [...] outpatient follow-up with the oncologist here at [facility]. Oncology to arrange follow-up at discharge Assessment [...] plans. - Discussed with beverley GIBSON with [facility] for DVT ppx Assessment & Plan (11/22/2023 2:54 PM CDT): Neurosurgery team for 3 mm R frontal SDH, which was managed non-operatively, and followed with stable serial imaging. This patient was staffed with Dr. Avendano The patient should be seen in clinic in 4-6 weeks with a non-contrast head CT. OK for [facility] for DVT prophylaxis and [...] to recurrent falls and prior SDH 11/2023. News Content Specialist discussed Watchman device 02/13/24 but pt deferred. [...] home Coumadin, continue metoprolol for rate control News Content Specialist Dr Escaimlla aware (11/21) plan for watchman in the [...] anticoagulation 02/05/201709/22 Osteoarthritis 10/20/2024 Overview (01/10/2024): Osteoarthritis Immunizations Immunization Administration Dates Next Due Influenza, [...] materials from doctor or pharmacy Always 11/27/2023 [facility] Utilities Answer Date Recorded In the past 12 months has e [place] gas, oil, or water [employer] threatened to shut off services in your [...] friends, or neighbors? Twice a week 11/08/19 25 How often do you get togethe r with friends or relatives? Twice a week 11/07/2024 How often do you attend chur ch or mormonism services? 1 to 4 times per year 11/07/2024 Do you belong to any clubs o r organizations such as oriental orthodox groups, unions, fraternal or athletic groups, [...] staff should administer the PHQ-9) 0 11/07/2024 [facility] - Occupational Stress Questionnaire Answer Date Recorded [...] place to sleep or slept in a [place] facility (including now)? No 11/21/2023 Housing Stability Vital Sign Answer Roman e Recorded In the last 12 months, was t here a time when you were not able to pay the mortgage or rent on time? No 11/07/2024 In the past 12 months, how m any times have you moved where you were living? 0 11/07/2024 At any time in the past 12 m [place], were you homeless or living in a [place] facility (including now)? No 11/07/2024 Personal Safety Answer Date Recorded Have you ever been in or are you currently in a harmful physical or emotional relationship or is someone making you feel afraid or unsafe? Denies 11/06/2024 Sex and Gender Information Value Date Recorded Sex Assigned at Not on file Legal Sex Male 4:28 AM SLITTING MACHINE OPERATOR HELPER Gender Identity Not on file Sexual Orientation Not on file Last Filed Vital Signs Vital Sign Reading Time Taken Comments Blood Pressure 129/56 11/09/2024 7:36 AM CDT Pulse 69 11/09/2024 7:36 AM CDT Temperature 36.6 C (97.9 F) 11/09/2024 7:36 AM CDT Respiratory Rate 18 11/09/2024 7:36 AM CDT Oxygen Saturation 99% 11/09/2024 7:36 AM CDT Inhaled Oxygen Concentration - - Weight 70.7 kg (155 lb 13.8 oz) 11/07/2024 8:00 PM CDT Height 170.2 cm (5' 7 ) 11/06/2024 6:05 PM CDT Body Mass Index 24.41 11/06/2024 6:05 PM CDT Plan of Treatment Not on file Procedures [...] Read Routine (OP Routine) 09/23/2024 6:45 PM SLITTING MACHINE OPERATOR HELPER Metastasis to bone (HCC) EGFR Routine 09/18/2024 8:52 AM SLITTING MACHINE OPERATOR HELPER Metastasis to bone (HCC) Prostate cancer (HCC) DIFFERENTIAL AUTO Routine 09/18/2024 8:5 2 AM SLITTING MACHINE OPERATOR HELPER Metastasis to bone (HCC) Prostate cancer (HCC) PSA DIAGNOSTIC Routine 09/18/2024 8:52 AM SLITTING MACHINE OPERATOR HELPER Metastasis to bone (HCC) Prostate cancer (HCC) TOTAL TESTOSTERONE Routine 09/18/2024 8: 52 AM SLITTING MACHINE OPERATOR HELPER Metastasis to bone (HCC) Prostate cancer (HCC) CBC WITH AUTO DIFFERENTIAL Routine 09/18/2024 8:52 AM SLITTING MACHINE OPERATOR HELPER Metastasis to bone (HCC) Prostate cancer (HCC) COMPREHENSIVE METABOLIC PANEL Routine 09/18/2024 8:52 AM SLITTING MACHINE OPERATOR HELPER Metastasis to bone (HCC) Prostate cancer (HCC) EGFR Routine 09/04/2024 7:07 AM SLITTING MACHINE OPERATOR HELPER Metastasis to bone (HCC) Prostate cancer (HCC) COMPREHENSIVE METABOLIC PANEL Routine 09/04/2024 7:07 AM SLITTING MACHINE OPERATOR HELPER Metastasis to bone (HCC) Prostate cancer (HCC) MANUAL DIFFERENTIAL Routine 09/04/2024 7 :02 AM SLITTING MACHINE OPERATOR HELPER Metastasis to bone (HCC) Prostate cancer (HCC) CBC WITH AUTO DIFFERENTIAL Routine 09/04/2024 7:02 AM SLITTING MACHINE OPERATOR HELPER Metastasis to bone (HCC) Prostate cancer (HCC) EGFR Routine 08/28/2024 7:48 AM SLITTING MACHINE OPERATOR HELPER Metastasis to bone (HCC) Prostate cancer (HCC) DIFFERENTIAL AUTO Routine 08/28/2024 7:4 8 AM SLITTING MACHINE OPERATOR HELPER Metastasis to bone (HCC) Prostate cancer (HCC) PSA DIAGNOSTIC Routine 08/28/2024 7:48 AM SLITTING MACHINE OPERATOR HELPER Metastasis to bone (HCC) Prostate cancer (HCC) TOTAL TESTOSTERONE Routine 08/28/2024 7: 48 AM SLITTING MACHINE OPERATOR HELPER Metastasis to bone (HCC) Prostate cancer (HCC) CBC WITH AUTO DIFFERENTIAL Routine 08/28/2024 7:48 AM SLITTING MACHINE OPERATOR HELPER Metastasis to bone (HCC) Prostate cancer (HCC) COMPREHENSIVE METABOLIC PANEL Routine 08/28/2024 7:48 AM SLITTING MACHINE OPERATOR HELPER Metastasis to bone (HCC) Prostate cancer (HCC) [...] Miscellaneous RADIATION ONCOLOGY ORD ERABLES Final Result [facility] * POCT glucose (11/09/2024 11:25 AM CDT) Glucose, POC 144 70 - 199 mg/dL Blood 11/09/2024 11:2 5 AM CDT 11/09/2024 11:25 AM CDT us Ivania Hammer MD LAB POCT ORDERABLES - DEVIC E Final Result N[facility] Department of [place] [address] * POCT glucose (11/09/2024 7:35 AM CDT) Glucose, POC 102 70 - 199 mg/dL Blood 11/09/2024 7:35 AM CDT 11/09/2024 7:35 AM CDT Ivania Hammer MD LAB POCT ORDERABLES - DEVIC E Final Result Performing Organization Address [facility] Co de Phone Number [facility] [place] [address] * Transfuse RBC (11/09/2024 6:49 AM CDT) Blood Kianna Kiser MD BLOOD TRANSFUSION ORDERABLES F inal Result Performing Organization Address [facility] [place] [address] * Prepare RBC: 1 Units (11/09/2024 4:08 AM CDT) Pathologist [facility] Product code [id number] Unit Number [id number] [facility] Product Blood Type OPOS [facility] Dispense Status PRESUMED TRANSFUSED [facility] Blood 11/09/2024 4:08 AM CDT 11/09/2024 4:08 AM CDT Narrative [facility] - 11/09/2024 8:00 PM CDT Are special requirements needed? (All products are leukoreduced and CMV- safe)- >No Date required:-[id number] LRRBC # of [id number] Reasons:-Hgb <7 g/dL} Kianna Kiser MD BLOOD BANK PRODUCT ORDERABLES Final Result Performing Organization Address [facility] [place] [address] * eGFR (11/09/2024 12:30 AM CDT) eGFR [...] MD LAB BLOOD ORDERABLES Final Resu lt [facility] Department [place] [address] * (ABNORMAL) Differential, auto (11/09/2024 12:30 AM CDT) Neutrophil abs 14.40(H) 1.50 - 6.50 K/cumm Imm gran abs 2.68(H) 0.00 - 0.10 K/cumm [facility] Lymphocyte abs 1.57 0.80 - 3.30 K/cumm [facility] Monocyte abs 1.43(H) 0.20 - 0.80 K/cumm [facility] Eosinophil abs 0.01 0.00 - 0.50 K/cumm [facility] Basophil abs 0.03 0.00 - 0.10 K/cumm [facility] Neutrophil pct 71.7 % [facility] Comment: Interpretive Data Percent cell count reference ranges are not reported, since discordance with absolute values may lead to misinterpretation of CBC data. Current Interpretive Data was last revised on 2017. Imm gran pct 13.3 % [facility] Comment: Interpretive Data Percent cell count reference ranges are not reported, since discordance with absolute values may lead to misinterpretation of CBC data. Current Interpretive Data was last revised on 2017. Lymphocyte pct 7.8 % [facility] Comment: Interpretive Data Percent cell count reference ranges are not reported, since discordance with absolute values may lead to misinterpretation of CBC data. Current Interpretive Data was last revised on 2017. Monocyte pct 7.1 % [facility] Comment: Interpretive Data Percent cell count reference ranges are not reported, since discordance with absolute values may lead to misinterpretation of CBC data. Current Interpretive Data was last revised on 2017. Eosinophil pct 0.0 % [facility] Comment: Interpretive Data Percent cell count reference ranges are not reported, since discordance with absolute values may lead to misinterpretation of CBC data. Current Interpretive Data was last revised on 2017. Basophil pct 0.1 % [facility] Comment: Interpretive Data Percent cell count reference ranges are not reported, since discordance with absolute values may lead to misinterpretation of CBC data. Current Interpretive Data was last revised on 2017. Blood 11/09/2024 12:3 0 AM CDT 11/09/2024 12:48 AM CDT us Kristi Montanez MD LAB BLOOD ORDERABLES Final Resu lt [facility] [place] [address] * (ABNORMAL) CBC with auto differential (11/09/2024 12:30 AM CDT) WBC 20.12(H) 3.80 - 9.90 K/cumm Hgb 6.9(L) 13.0 - 17.5 g/dL [facility] Hct 21.8(L) 38.9 - 50.3 % [facility] Plt 269 150 - 400 K/cumm [facility] MPV 10.0 9.1 - 12.3 fL [facility] RBC 2.70(L) 4.30 - 5.80 M/cumm [facility] MCV 80.7(L) 81.3 - 96.4 fL [facility] MCH 25.6(L) 27.1 - 33.3 pg [facility] MCHC 31.7(L) 32.3 - 35.7 g/dL [facility] RDW CV 22.1(H) 11.1 - 14.9 % [facility] RDW SD 61.1(H) 35.7 - 48.1 fL [facility] NRBC abs 0.76(H) 0.00 - 0.01 K/cumm [facility] Morphologic Screen Results confirmed by manual morphology review. [facility] Blood 11/09/2024 12:3 0 AM CDT 11/09/2024 12:48 AM CDT Kristi Montanez MD LAB BLOOD ORDERABLES Edited Res ult - Final Performing Organization Address City/[facility]/ZIP Co de Phone Number [facility] [address] [place] [address] * (ABNORMAL) Phosphorus (11/09/2024 12:30 AM CDT) Pathologist [facility] Phosphorus, pl 1.7(L) 2.3 - 4.5 mg/dL Blood 11/09/2024 12:3 0 AM CDT 11/09/2024 12:48 AM CDT us Kristi Montanez MD LAB BLOOD ORDERABLES Final Resu lt [facility] [address] [place] [address] * (ABNORMAL) Comprehensive metabolic panel (11/09/2024 12:30 AM CDT) Pathologist [facility] Sodium 138 135 - 145 mmol/L Potassium, pl 4.8 3.3 - 4.9 mmol/L [facility] Chloride 108 97 - 110 mmol/L [facility] CO2 19(L) 22 - 32 mmol/L [facility] Anion gap 11 2 - 15 mmol/L [facility] BUN 23 6 - 25 mg/dL [facility] Creatinine 1.11 0.80 - 1.30 mg/dL [facility] Glucose 147 70 - 199 mg/dL [facility] Comment: Interpretive Data Fasting glucose [...] 2022. Calcium 7.0(L) 8.5 - 10.3 mg/dL [facility] Bilirubin, total 0.2 0.1 - 1.2 mg/dL [facility] Protein, pl 5.9(L) 6.5 - 8.5 g/dL [facility] Albumin 2.8(L) 3.5 - 5.0 g/dL [facility] Alk phos 431(H) 40 - 130 Units/L [facility] ALT 21 7 - 55 Units/L [facility] AST 34 10 - 50 Units/L [facility] Blood 11/09/2024 12:3 0 AM CDT 11/09/2024 12:48 AM CDT Kristi Montanez MD LAB BLOOD ORDERABLES Final Resu lt [facility] Department [place] [address] * POCT glucose (11/08/2024 9:34 PM CDT) [facility] Glucose, POC 129 70 - 199 mg/dL Blood 11/08/2024 9:34 PM CDT 11/08/2024 9:34 PM CDT Ivania Hammer MD LAB POCT ORDERABLES - DEVIC E Final Result Performing Organization Address [facility] Co de Phone Number [facility] [place] [address] * POCT glucose (11/08/2024 8:38 PM CDT) Glucose, POC 135 70 - 199 mg/dL Blood 11/08/2024 8:38 PM CDT 11/08/2024 8:38 PM CDT Ivania Hammer MD LAB POCT ORDERABLES - DEVIC E Final Result Performing Organization Address [facility] Phone Number [facility] [place] [address] * POCT glucose (11/08/2024 5:36 PM CDT) Glucose, POC 126 70 - 199 mg/dL Blood 11/08/2024 5:36 PM CDT 11/08/2024 5:36 PM CDT Ivania Hammer MD LAB POCT ORDERABLES - DEVIC E Final Result Performing Organization Address [facility] Co de Phone Number [facility] [place] [address] * POCT glucose (11/08/2024 12:42 PM CDT) Glucose, POC 140 70 - 199 mg/dL Blood 11/08/2024 12:4 2 PM CDT 11/08/2024 12:42 PM CDT Ivania Hammer MD LAB POCT ORDERABLES - DEVIC E Final Result Performing Organization Address [facility] Co de Phone Number [facility] [place] [address] * POCT glucose (11/08/2024 8:44 AM CDT) Glucose, POC 132 70 - 199 mg/dL Blood 11/08/2024 8:44 AM CDT 11/08/2024 8:44 AM CDT Ivania Hammer MD LAB POCT ORDERABLES - DEVIC E Final Result Performing Organization Address City/[facility]/[place] [address] * eGFR (11/08/2024 1:06 AM CDT) eGFR [...] MD LAB BLOOD ORDERABLES Final Resu lt [facility] [place] [address] * (ABNORMAL) Differential, auto (11/08/2024 1:06 AM CDT) Neutrophil abs 14.90(H) 1.50 - 6.50 K/cumm Imm gran abs 1.93(H) 0.00 - 0.10 K/cumm [facility] Lymphocyte abs 1.78 0.80 - 3.30 K/cumm [facility] Monocyte abs 1.99(H) 0.20 - 0.80 K/cumm [facility] Eosinophil abs 0.00 0.00 - 0.50 K/cumm [facility] Basophil abs 0.09 0.00 - 0.10 K/cumm [facility] Neutrophil pct 72.1 % [facility] Comment: Interpretive Data Percent cell count reference ranges are not reported, since discordance with absolute values may lead to misinterpretation of CBC data. Current Interpretive Data was last revised on 2017. Imm gran pct 9.3 % [facility] Comment: Interpretive Data Percent cell count reference ranges are not reported, since discordance with absolute values may lead to misinterpretation of CBC data. Current Interpretive Data was last revised on 2017. Lymphocyte pct 8.6 % [facility] Comment: Interpretive Data Percent cell count reference ranges are not reported, since discordance with absolute values may lead to misinterpretation of CBC data. Current Interpretive Data was last revised on 2017. Monocyte pct 9.6 % [facility] Comment: Interpretive Data Percent cell count reference ranges are not reported, since discordance with absolute values may lead to misinterpretation of CBC data. Current Interpretive Data was last revised on 2017. Eosinophil pct 0.0 % [facility] Comment: Interpretive Data Percent cell count reference ranges are not reported, since discordance with absolute values may lead to misinterpretation of CBC data. Current Interpretive Data was last revised on 2017. Basophil pct 0.4 % [facility] Comment: Interpretive Data Percent cell count reference ranges are not reported, since discordance with absolute values may lead to misinterpretation of CBC data. Current Interpretive Data was last revised on 2017. Blood 11/08/2024 1:06 AM CDT 11/08/2024 1:36 AM CDT us Kristi Montanez MD LAB BLOOD ORDERABLES Final Resu lt [facility] [place] [address] * (ABNORMAL) CBC with auto differential (11/08/2024 1:06 AM CDT) WBC 20.69(H) 3.80 - 9.90 K/cumm Hgb 7.5(L) 13.0 - 17.5 g/dL [facility] Hct 23.9(L) 38.9 - 50.3 % [facility] Plt 326 150 - 400 K/cumm [facility] MPV 10.1 9.1 - 12.3 fL [facility] RBC 3.00(L) 4.30 - 5.80 M/cumm [facility] MCV 79.7(L) 81.3 - 96.4 fL [facility] MCH 25.0(L) 27.1 - 33.3 pg [facility] MCHC 31.4(L) 32.3 - 35.7 g/dL [facility] RDW CV 21.4(H) 11.1 - 14.9 % [facility] RDW SD 60.7(H) 35.7 - 48.1 fL [facility] NRBC abs 0.58(H) 0.00 - 0.01 K/cumm [facility] Blood 11/08/2024 1:06 AM CDT 11/08/2024 1:36 AM CDT us Kristi Montanez MD LAB BLOOD ORDERABLES Final Resu lt [facility] [place] [address] * (ABNORMAL) Phosphorus (11/08/2024 1:06 AM CDT) Phosphorus, pl 2.2(L) 2.3 - 4.5 mg/dL Blood 11/08/2024 1:06 AM CDT 11/08/2024 1:36 AM CDT Kristi Montanez MD LAB BLOOD ORDERABLES Final Resu lt [facility] [place] [address] * (ABNORMAL) Comprehensive metabolic panel (11/08/2024 1:06 AM CDT) Sodium 136 135 - 145 mmol/L Potassium, pl 4.9 3.3 - 4.9 mmol/L [facility] Chloride 106 97 - 110 mmol/L [facility] CO2 21(L) 22 - 32 mmol/L [facility] Anion gap 9 2 - 15 mmol/L [facility] BUN 25 6 - 25 mg/dL [facility] Creatinine 1.04 0.80 - 1.30 mg/dL [facility] Glucose 120 70 - 199 mg/dL [facility] Comment: Interpretive Data Fasting glucose [...] 2022. Calcium 7.4(L) 8.5 - 10.3 mg/dL [facility] Bilirubin, total 0.2 0.1 - 1.2 mg/dL [facility] Protein, pl 6.1(L) 6.5 - 8.5 g/dL [facility] Albumin 3.0(L) 3.5 - 5.0 g/dL [facility] Alk phos 417(H) 40 - 130 Units/L [facility] ALT 18 7 - 55 Units/L [facility] AST 28 10 - 50 Units/L [facility] Blood 11/08/2024 1:06 AM CDT 11/08/2024 1:36 AM CDT Kristi Montanez MD LAB BLOOD ORDERABLES Final Resu lt Performing Organization Address [facility] Co de Phone Number [facility] [place] [address] * POCT glucose (11/07/2024 8:19 PM CDT) Glucose, POC 163 70 - 199 mg/dL Blood 11/07/2024 8:19 PM CDT 11/07/2024 8:19 PM CDT Result [facility] Ivania Hammer MD LAB POCT ORDERABLES - DEVIC E Final Result Performing Organization Address [facility] Co de Phone Number [facility] [place] [address] * POCT glucose (11/07/2024 4:10 PM CDT) Glucose, POC 138 70 - 199 mg/dL Blood 11/07/2024 4:10 PM CDT 11/07/2024 4:10 PM CDT Ivania Hammer MD LAB POCT ORDERABLES - DEVIC E Final Result Performing Organization Address City/[facility] Co de Phone Number [facility] [place] [address] * POCT glucose (11/07/2024 11:28 AM CDT) Glucose, POC 143 70 - 199 mg/dL Blood 11/07/2024 11:2 8 AM CDT 11/07/2024 11:28 AM CDT us Ivania Hammer MD LAB POCT ORDERABLES - DEVIC E Final Result Performing Organization Address City/[facility]/ZIP Co de Phone Number [facility] [place] [address] * (ABNORMAL) Lactate (11/07/2024 9:05 AM CDT) Lactate 4.5(C) 0.7 - 2.0 mmol/L Blood 11/07/2024 9:05 AM CDT 11/07/2024 10:56 AM CDT us Kristi Montanez MD LAB BLOOD ORDERABLES Final Resu lt Performing Organization Address City/[facility] Co de Phone Number [facility] [place] [address] * Critical Result Callback Chemistry (11/07/2024 9:05 AM CDT) Date Notified [id number] Time Notified 122 [facility] TestName Lactate [facility] Called/Read Back Tammie [facility] Credentials RN NERY [facility] Called By Lactate [facility] Blood 11/07/2024 9:05 AM CDT 11/07/2024 10:56 AM CDT us Kristi Montanez MD LAB BLOOD ORDERABLES Final Resu lt [facility] [place] [address] * POCT glucose (11/07/2024 8:16 AM CDT) Glucose, POC 137 70 - 199 mg/dL Blood 11/07/2024 8:16 AM CDT 11/07/2024 8:16 AM CDT us Ivania Hammer MD LAB POCT ORDERABLES - DEVIC E Final Result Performing Organization Address City/[facility]/ZIP Co de Phone Number [facility] [place] [address] * (ABNORMAL) Lactate (11/07/2024 5:41 AM CDT) Lactate 4.9(C) 0.7 - 2.0 mmol/L Blood 11/07/2024 5:41 AM CDT 11/07/2024 6:00 AM CDT us Kristi Montanez MD LAB BLOOD ORDERABLES Final Resu lt Performing Organization Address [facility] Co de Phone Number [facility] [place] [address] * eGFR (11/07/2024 5:41 AM CDT) eGFR [...] MD LAB BLOOD ORDERABLES Final Resu lt [facility] [place] [address] * Critical Result Callback Chemistry (11/07/2024 5:41 AM CDT) Date Notified [id number] Time Notified 627 [facility] TestName Lactate [facility] Called/Read Back Desiree [facility] Credentials JP [facility] Called By ra [facility] Blood 11/07/2024 5:41 AM CDT 11/07/2024 6:00 AM CDT Kristi Montanez MD LAB BLOOD ORDERABLES Final Resu lt Performing Organization Address [facility] Co de Phone Number [facility] [place] [address] * (ABNORMAL) aPTT (11/07/2024 5:41 AM CDT) [...] Final Resu lt Performing Organization Address [facility]/ZIP Co de Phone Number [facility] [place] [address] * Protime-INR (11/07/2024 5:41 AM CDT) PT 13.0 9.7 - 13.0 sec INR 1.20 0.90 - 1.20 [facility] Comment: Interpretive data Oral anticoagulant therapeutic ranges: Venous thromboembolism prophylaxis or treatment: 2.0-3.0 CARDIOLOGY Standard range: 2.0-3.0 High-intensity range: 2.5-3.5 Refer to indication-specific guidelines for appropriate target ranges for prosthetic heart valve replacement. Current interpretive data was last revised on 2019. Blood 11/07/2024 5:41 AM CDT 11/07/2024 6:09 AM CDT Kristi Montanez MD LAB BLOOD ORDERABLES Final Resu lt Performing Organization Address [facility] Co de Phone Number [facility] [place] [address] * Type and screen (11/07/2024 5:41 AM CDT) ABO Rh O Positive Wilfred, indirect Negative [facility] Blood 11/07/2024 5:41 AM CDT 11/07/2024 6:00 AM CDT Narrative [facility] - 11/07/2024 6:43 AM CDT Has the patient had Daratumumab or Isatuximab in the past 6 months?->Unknown Kristi Montanez MD LAB BLOOD BANK TEST ORDERABLES Final Result Performing Organization Address [facility] Co de Phone Number [facility] [place] [address] * Uric acid (11/07/2024 5:41 AM CDT) Uric acid 6.3 3.0 - 8.0 mg/dL Blood 11/07/2024 5:41 AM CDT 11/07/2024 6:00 AM CDT Narrative [facility] - 11/07/2024 6:33 AM CDT Sunday and only. Morning draw. . Kristi Montanez MD LAB BLOOD ORDERABLES Final Resu lt [facility] [place] [address] * (ABNORMAL) Phosphorus (11/07/2024 5:41 AM CDT) [facility] Phosphorus, pl 2.0(L) 2.3 - 4.5 mg/dL Blood 11/07/2024 5:41 AM CDT 11/07/2024 6:00 AM CDT Kristi Montanez MD LAB BLOOD ORDERABLES Final Resu lt Performing Organization Address [facility] Co de Phone Number [facility] [place] [address] * Lactate dehydrogenase (LD) (11/07/2024 5:41 AM CDT) [facility] Lactate dehydrogenase (LDH) 242 100 - 250 Units/L Blood 11/07/2024 5:41 AM CDT 11/07/2024 6:00 AM CDT Narrative [facility] - 11/07/2024 6:33 AM CDT Sunday and only. Morning draw. us Kristi Montanez MD LAB BLOOD ORDERABLES Final Resu lt Performing Organization Address [facility] Co de Phone Number [facility] [place] [address] * (ABNORMAL) Comprehensive metabolic panel (11/07/2024 5:41 AM CDT) [facility] Sodium 137 135 - 145 mmol/L Potassium, pl 4.3 3.3 - 4.9 mmol/L [facility] Chloride 101 97 - 110 mmol/L [facility] CO2 22 22 - 32 mmol/L [facility] Anion gap 14 2 - 15 mmol/L [facility] BUN 32(H) 6 - 25 mg/dL [facility] Creatinine 1.11 0.80 - 1.30 mg/dL [facility] Glucose 167 70 - 199 mg/dL [facility] Comment: Interpretive Data Fasting glucose [...] 2022. Calcium 7.3(L) 8.5 - 10.3 mg/dL [facility] Bilirubin, total 0.2 0.1 - 1.2 mg/dL [facility] Protein, pl 6.0(L) 6.5 - 8.5 g/dL [facility] Albumin 3.0(L) 3.5 - 5.0 g/dL [facility] Alk phos 410(H) 40 - 130 Units/L [facility] ALT 17 7 - 55 Units/L [facility] AST 26 10 - 50 Units/L [facility] Blood 11/07/2024 5:41 AM CDT 11/07/2024 6:00 AM CDT us Kristi Montanez MD LAB BLOOD ORDERABLES Final Resu lt [facility] [place] [address] * (ABNORMAL) C. difficile testing Stool (11/07/2024 2:53 AM CDT) [facility] Result Positive Negative Toxin Result Positive Negative [facility] C. diff result Positive, free toxin(A) Negative, free toxin [facility] C. diff interp Toxigenic Clostridioides (Clostridium) difficile detected. Analysis was performed using a two-step methodology using glutamate dehydrogenase antigen detection followed by detection of C. difficile toxin(s). [facility] Stool 11/07/2024 2:53 AM CDT 11/07/2024 6:02 AM CDT Narrative [facility] - 11/07/2024 8:36 AM CDT Testing for C. difficile is not recommended within 4 days of a negative result, 10 days of a positive, or 24 hours after laxative administration. If this order is clinically indicated, contact the lab and enter the passcode to complete this order.->MD approved of sending stool sample Kristi Montanez MD LAB MICROBIOLOGY - GENERAL ORDE PEREZ Final Result [facility] [place] [address] * (ABNORMAL) Urinalysis reflex to microscopic and culture Urine (11/07/2024 2:53 AM CDT) Color, ur Yellow Yellow Clarity, ur Clear Clear [facility] Specific gravity, ur >1.042(H) 1.003 - 1.030 [facility] pH, urine 6.0 [facility] Comment: Interpretive Data U rine pH is affected by diet, medications, systemic acid-base disturbances, and renal tubular function. pH may affect urinary stone formation. For example, urine pH below 6.0 may help reduce the tendency for calcium phosphate stones and pH greater than 6.0 may reduce the tendency for uric acid stone formation. Source: [facility] Current Interpretive Data was last revised on 2017 Protein, ur ql 1+(A) Negative [facility] Glucose, ur ql Negative Negative [facility] Ketones, ur Negative Negative [facility] Bilirubin, ur Negative Negative [facility] Blood, ur Negative Negative [facility] Urobilinogen, ur <2.0 <2.0 mg/dL [facility] Nitrite, ur Negative Negative [facility] Leukocyte esterase, ur Negative Negative [facility] UA reflex comment Reflex to microscopic UA will be performed. [facility] Urine 11/07/2024 2:53 AM CDT 11/07/2024 3:02 AM CDT Kristi Montanez MD LAB MICROBIOLOGY - GENERAL ORDE RABLES Final Result Performing Organization Address City/[facility]/ZIP Co de Phone Number [facility] [place] [address] * (ABNORMAL) Urinalysis, microscopic only (11/07/2024 2:53 AM CDT) WBC, ur 0-5 0 - 5 /HPF RBC, ur 0-2 0 - 2 /HPF [facility] Epithelial cells, squamous, ur 1-5 0 - 5 /HPF [facility] Bacteria, ur Trace(A) [facility] Culture Reflex Comment Reflex conditions for urine culture (WBC >10) not met. [facility] Urine 11/07/2024 2:53 AM CDT 11/07/2024 3:02 AM CDT us Kristi Montanez MD LAB URINE ORDERABLES Final Resu lt Performing Organization Address [facility] Co de Phone Number [facility] [place] [address] * Infection Prevention VRE Culture Stool (11/07/2024 2:53 AM CDT) Report Final Report: Negative Stool 11/07/2024 2:53 AM CDT 11/07/2024 8:31 AM CDT Narrative [facility] - 11/09/2024 12:11 PM CDT Surveillance culture for Infection Prevention purposes only; results indicate colonization, not infection requiring treatment. Testing performed by [facility] ([phone]). us Ivania Hammer MD LAB MICROBIOLOGY - GENERAL ORDERABLES Final Result Performing Organization Address City/[facility]/ZIP Co de Phone Number [facility] [place] [address] * Stool culture Stool Rectum (11/07/2024 2:53 AM CDT) Direct Specimen Exam Shiga Toxin Testing: Antigen detection assay for Shiga-toxin NEGATIVE for Shiga Toxin 1 and Shiga Toxin 2. Report Final Report: No growth of enteric bacterial pathogens [facility] Stool (Rectum) 11/07/2024 2: 53 AM CDT 11/07/2024 5:02 AM CDT Narrative [facility] - 11/11/2024 9:31 AM CDT Testing performed by [facility] ([phone]). Routine stool cultures include procedures to detect Salmonella, Shigella, Edwardsiella, Aeromonas, Pleisiomonas, Campylobacter, Yersinia, E. coli O157, and Shiga-like toxins. Vibrio is cultured only upon special request. If Vibrio is suspected, please call the laboratory at [phone]. Interpretive data was last updated November 27, 2016. Kristi Montanez MD LAB MICROBIOLOGY - GENERAL [facility] Final Result [facility] Department [place] [address] * (ABNORMAL) Differential, auto (11/07/2024 2:30 AM CDT) Neutrophil abs 10.28(H) 1.50 - 6.50 K/cumm Imm gran abs 1.18(H) 0.00 - 0.10 K/cumm [facility] Lymphocyte abs 1.42 0.80 - 3.30 K/cumm [facility] Monocyte abs 1.70(H) 0.20 - 0.80 K/cumm [facility] Eosinophil abs 0.01 0.00 - 0.50 K/cumm [facility] Basophil abs 0.07 0.00 - 0.10 K/cumm [facility] Neutrophil pct 70.1 % [facility] Comment: Interpretive Data Percent cell count reference ranges are not reported, since discordance with absolute values may lead to misinterpretation of CBC data. Current Interpretive Data was last revised on 2017. Imm gran pct 8.0 % [facility] Comment: Interpretive Data Percent cell count reference ranges are not reported, since discordance with absolute values may lead to misinterpretation of CBC data. Current Interpretive Data was last revised on 2017. Lymphocyte pct 9.7 % [facility] Comment: Interpretive Data Percent cell count reference ranges are not reported, since discordance with absolute values may lead to misinterpretation of CBC data. Current Interpretive Data was last revised on 2017. Monocyte pct 11.6 % [facility] Comment: Interpretive Data Percent cell count reference ranges are not reported, since discordance with absolute values may lead to misinterpretation of CBC data. Current Interpretive Data was last revised on 2017. Eosinophil pct 0.1 % [facility] Comment: Interpretive Data Percent cell count reference ranges are not reported, since discordance with absolute values may lead to misinterpretation of CBC data. Current Interpretive Data was last revised on 2017. Basophil pct 0.5 % [facility] Comment: Interpretive Data Percent cell count reference ranges are not reported, since discordance with absolute values may lead to misinterpretation of CBC data. Current Interpretive Data was last revised on 2017. Blood 11/07/2024 2:30 AM CDT 11/07/2024 5:59 AM CDT us Kristi Montanez MD LAB BLOOD ORDERABLES Final Resu lt [facility] [place] [address] * (ABNORMAL) CBC with auto differential (11/07/2024 2:30 AM CDT) WBC 14.66(H) 3.80 - 9.90 K/cumm Hgb 8.0(L) 13.0 - 17.5 g/dL [facility] Hct 24.8(L) 38.9 - 50.3 % [facility] Plt 343 150 - 400 K/cumm [facility] MPV 9.9 9.1 - 12.3 fL [facility] RBC 3.18(L) 4.30 - 5.80 M/cumm [facility] MCV 78.0(L) 81.3 - 96.4 fL [facility] MCH 25.2(L) 27.1 - 33.3 pg [facility] MCHC 32.3 32.3 - 35.7 g/dL [facility] RDW CV 21.3(H) 11.1 - 14.9 % [facility] RDW SD 59.0(H) 35.7 - 48.1 fL [facility] NRBC abs 0.64(H) 0.00 - 0.01 K/cumm [facility] Blood 11/07/2024 2:30 AM CDT 11/07/2024 5:59 AM CDT us Kristi Montanez MD LAB BLOOD ORDERABLES Final Resu lt [facility] [place] [address] * eGFR (11/06/2024 9:55 PM CDT) eGFR [...] ORDERABLES Final Resu lt Performing Organization Address City/[facility]/ZIP Co de Phone Number [facility] [place] [address] * POCT glucose (11/06/2024 9:55 PM CDT) Glucose, POC 158 70 - 199 mg/dL Blood 11/06/2024 9:55 PM CDT 11/06/2024 9:55 PM CDT Devon Carlin MD LAB POCT ORDERABLES - DE VICE Final Result Performing Organization Address [facility] Co de Phone Number [facility] [place] [address] * (ABNORMAL) Phosphorus (11/06/2024 9:55 PM CDT) Phosphorus, pl 1.9(L) 2.3 - 4.5 mg/dL Blood 11/06/2024 9:55 PM CDT 11/06/2024 10:04 PM CDT Kristi Montanez MD LAB BLOOD ORDERABLES Final Resu lt Performing Organization Address [facility]/ZIP Co de Phone Number [facility] [place] [address] * Magnesium (11/06/2024 9:55 PM CDT) Magnesium 1.5 1.4 - 2.5 mg/dL Blood 11/06/2024 9:55 PM CDT 11/06/2024 10:04 PM CDT Kristi Montanez MD LAB BLOOD ORDERABLES Final Resu lt [facility] [place] [address] * (ABNORMAL) Comprehensive metabolic panel (11/06/2024 9:55 PM CDT) Sodium 141 135 - 145 mmol/L Potassium, pl 4.6 3.3 - 4.9 mmol/L [facility] Chloride 104 97 - 110 mmol/L [facility] CO2 21(L) 22 - 32 mmol/L [facility] Anion gap 16(H) 2 - 15 mmol/L [facility] BUN 34(H) 6 - 25 mg/dL [facility] Creatinine 1.16 0.80 - 1.30 mg/dL [facility] Glucose 155 70 - 199 mg/dL [facility] Comment: Interpretive Data Fasting glucose [...] 2022. Calcium 7.0(L) 8.5 - 10.3 mg/dL [facility] Bilirubin, total 0.3 0.1 - 1.2 mg/dL [facility] Protein, pl 5.9(L) 6.5 - 8.5 g/dL [facility] Albumin 3.0(L) 3.5 - 5.0 g/dL [facility] Alk phos 427(H) 40 - 130 Units/L [facility] ALT 21 7 - 55 Units/L [facility] AST 25 10 - 50 Units/L [facility] Blood 11/06/2024 9:55 PM CDT 11/06/2024 10:04 PM CDT us Kristi Montanez MD LAB BLOOD ORDERABLES Final Resu lt [facility] [place] [address] * CT abdomen pelvis with contrast (11/06/2024 [...] lower thoracic vertebral bodies, unchanged. Procedure Note Loar Can MD - 11/06/2024 EXAMINATION: Computed tomography [...] Electronically signed by: Lora Can M.D. [facility] IM CT PROCEDURES Final Result * Respiratory pathogen panel Nasopharyngeal (11/06/2024 2:25 PM CDT) Influenza A RNA Not Detected Not Detected Influenza B RNA Not Detected Not Detected [facility] RSV RNA Not Detected Not Detected [facility] COVID-19 RNA Not Detected Not Detected [facility] Coronavirus 229E RNA Not Detected Not Detected [facility] Coronavirus HKU1 RNA Not Detected Not Detected [facility] Coronavirus NL63 RNA Not Detected Not Detected [facility] Coronavirus OC43 RNA Not Detected Not Detected [facility] Adenovirus DNA Not Detected Not Detected [facility] Metapneumovirus RNA Not Detected Not Detected [facility] Rhinovirus/Enterov irus RNA Not Detected Not Detected [facility] Parainfluenza 1 RNA Not Detected Not Detected [facility] Parainfluenza 2 RNA Not Detected Not Detected [facility] Parainfluenza 3 RNA Not Detected Not Detected [facility] Parainfluenza 4 RNA Not Detected Not Detected [facility] B. pertussis DNA Not Detected Not Detected [facility] B. parapertussis DNA Not Detected Not Detected [facility] C. pneumoniae DNA Not Detected Not Detected [facility] M. pneumoniae DNA Not Detected Not Detected [facility] Nasopharyngeal 11/06/2024 2: 25 PM CDT 11/06/2024 2:36 PM CDT Narrative [facility] - 11/06/2024 3:40 PM CDT Is the Patient experiencing symptoms consistent with COVID?->Yes Surveillance testing for transplant patient?->No Interpretive Data [employer] FilmArray Respiratory Panel (RP2.1) assay is a [...] assay has FDA clearance for testing of MAILING MANAGER swabs. The performance of additional specimen types has been assessed by the performing laboratory. The performance characteristics of this assay have been determined by [facility] Molecular Infectious Disease Laboratory. Current interpretive data was last revised on 22. us Ronel Arroyo MAILING MANAGER LAB MICROBIOLOGY - GENER AL ORDERABLES Final Result [facility] Department [place] [address] * (ABNORMAL) POC Blood Gas and Chemistries, Arterial - (11/06/2024 1:47 PM CDT) [facility] Lactate, POC 4.3(C) 0.7 - 2.0 mmol/L Blood 11/06/2024 1:47 PM CDT 11/06/2024 1:47 PM CDT Saw Ga MD LAB POCT ORDERABLES - DEV ICE Final Result [facility] [place] [address] * eGFR (11/06/2024 1:34 PM CDT) [facility] eGFR 66 >=60 mL/min/1. 73 m2 Comment: [...] 1:34 PM CDT 11/06/2024 1:58 PM CDT Ronel Arroyo MAILING MANAGER LAB BLOOD ORDERABLES Fin al Result [facility] Department [place] [address] * (ABNORMAL) CBC with auto differential (11/06/2024 1:34 PM CDT) WBC 12.36(H) 3.80 - 9.90 K/cumm Hgb 9.2(L) 13.0 - 17.5 g/dL [facility] Hct 29.0(L) 38.9 - 50.3 % [facility] Plt 399 150 - 400 K/cumm [facility] MPV 9.8 9.1 - 12.3 fL [facility] RBC 3.73(L) 4.30 - 5.80 M/cumm [facility] MCV 77.7(L) 81.3 - 96.4 fL [facility] MCH 24.7(L) 27.1 - 33.3 pg [facility] MCHC 31.7(L) 32.3 - 35.7 g/dL [facility] RDW CV 21.6(H) 11.1 - 14.9 % [facility] RDW SD 60.2(H) 35.7 - 48.1 fL [facility] NRBC abs 0.36(H) 0.00 - 0.01 K/cumm [facility] Morphologic Screen Results confirmed by manual morphology review. [facility] Blood 11/06/2024 1:34 PM CDT 11/06/2024 1:58 PM CDT us Ronel Jannette Seeker MAILING MANAGER LAB BLOOD ORDERABLES Fin al Result [facility] Department [place] [address] * (ABNORMAL) Manual Differential (11/06/2024 1:34 PM CDT) Differential Manual Neutrophil abs 9.90(H) 1.50 - 6.50 K/cumm [facility] Imm gran abs 0.11(H) 0.00 - 0.10 K/cumm [facility] Lymphocyte abs 0.85 0.80 - 3.30 K/cumm [facility] Monocyte abs 1.38(H) 0.20 - 0.80 K/cumm [facility] Basophil abs 0.11(H) 0.00 - 0.10 K/cumm [facility] Neutrophil pct 80.1 % [facility] Comment: Interpretive Data Percent cell count reference ranges are not reported, since discordance with absolute values may lead to misinterpretation of CBC data. Current Interpretive Data was last revised on 2017. Lymphocyte pct 6.9 % [facility] Comment: Interpretive Data Percent cell count reference ranges are not reported, since discordance with absolute values may lead to misinterpretation of CBC data. Current Interpretive Data was last revised on 2017. Monocyte pct 11.2 % [facility] Comment: Interpretive Data Percent cell count reference ranges are not reported, since discordance with absolute values may lead to misinterpretation of CBC data. Current Interpretive Data was last revised on 2017. Basophil pct 0.9 % [facility] Comment: Interpretive Data Percent cell count reference ranges are not reported, since discordance with absolute values may lead to misinterpretation of CBC data. Current Interpretive Data was last revised on 2017. Promyelocyte pct 0.9(H) 0.0 - 0.0 % [facility] Blood 11/06/2024 1:34 PM CDT 11/06/2024 2:02 PM CDT Ronel Jannette Seeker MAILING MANAGER LAB BLOOD ORDERABLES Fin al Result [facility] [place] [address] * Blood culture Blood (11/06/2024 1:34 PM CDT) Report Final Report: No growth Blood 11/06/2024 1:34 PM CDT 11/06/2024 2:23 PM CDT Narrative [facility] - 11/10/2024 4:00 PM CDT From a [...] performance characteristics have been verified by the [facility] Microbiology Laboratory. For questions about this culture, contact the Microbiology Laboratory at [phone]. Interpretive data was last revised on 24. Ronel Bhatia [facility] LAB MICROBIOLOGY - GENER AL ORDERABLES Final Result [facility] [place] [address] * Blood culture Blood (11/06/2024 1:34 PM CDT) Report Final Report: No growth Blood 11/06/2024 1:34 PM CDT 11/06/2024 2:23 PM CDT Narrative [facility] - 11/10/2024 4:00 PM CDT Collection->Peripheral 1. [...] performance characteristics have been verified by the [facility] Microbiology Laboratory. For questions about this culture, contact the Microbiology Laboratory at [phone]. Interpretive data was last revised on 24. Ronel Bhatia [facility] LAB MICROBIOLOGY - GENER AL ORDERABLES Final Result Performing Organization Address City/[facility]/ZIP Co de Phone Number NERY HUSAIN [facility] Department [place] [address] * (ABNORMAL) Phosphorus (11/06/2024 1:34 PM CDT) Phosphorus, pl 2.2(L) 2.3 - 4.5 mg/dL Blood 11/06/2024 1:34 PM CDT 11/06/2024 1:58 PM CDT [facility] MAILING MANAGER LAB BLOOD ORDERABLES Fin al Result Performing Organization Address [facility] Co de Phone Number [facility] [place] [address] * Magnesium (11/06/2024 1:34 PM CDT) [facility] Magnesium 1.7 1.4 - 2.5 mg/dL Blood 11/06/2024 1:34 PM CDT 11/06/2024 1:58 PM CDT [facility] MAILING MANAGER LAB BLOOD ORDERABLES Fin al Result Performing Organization Address [facility] de Phone Number [facility] [place] [address] * (ABNORMAL) Comprehensive metabolic panel (11/06/2024 1:34 PM CDT) [facility] Sodium 141 135 - 145 mmol/L Potassium, pl 5.1(H) 3.3 - 4.9 mmol/L [facility] Chloride 100 97 - 110 mmol/L [facility] CO2 24 22 - 32 mmol/L [facility] Anion gap 17(H) 2 - 15 mmol/L [facility] BUN 32(H) 6 - 25 mg/dL [facility] Creatinine 1.13 0.80 - 1.30 mg/dL [facility] Glucose 151 70 - 199 mg/dL [facility] Comment: Interpretive Data Fasting glucose [...] 2022. Calcium 8.1(L) 8.5 - 10.3 mg/dL [facility] Bilirubin, total 0.4 0.1 - 1.2 mg/dL [facility] Protein, pl 7.0 6.5 - 8.5 g/dL [facility] Albumin 3.1(L) 3.5 - 5.0 g/dL [facility] Alk phos 471(H) 40 - 130 Units/L [facility] ALT 24 7 - 55 Units/L [facility] AST 37 10 - 50 Units/L [facility] Blood 11/06/2024 1:34 PM CDT 11/06/2024 1:58 PM CDT Ronel Arroyo MAILING MANAGER LAB BLOOD ORDERABLES Fin al Result [facility] [place] [address] * eGFR (10/30/2024 9:10 AM CDT) eGFR [...] MD LAB BLOOD ORDERABLES Fin al Result [facility] [place] [address] * (ABNORMAL) CBC with auto differential (10/30/2024 9:10 AM CDT) WBC 9.00 3.80 - 9.90 K/cumm Comment:Testing performed by : [facility], [address] [place] [address] Hgb 9.6(L) 13.0 - 17.5 g/dL [facility] Comment:Testing performed by : [facility], [address] [place] [address] Hct 29.9(L) 38.9 - 50.3 % [facility] Comment:Testing performed by : [facility], [address] [place] [address] Plt 481(H) 150 - 400 K/cumm [facility] Comment:Testing performed by : [facility], [address] [place] [address] MPV 6.9 6.8 - 10.4 fL [facility] Comment:Testing performed by : [facility], [address] [place] [address] RBC 3.79(L) 4.30 - 5.80 M/cumm [facility] Comment:Testing performed by : [facility], [address] [place] [address] MCV 79.0(L) 81.3 - 96.4 fL [facility] Comment:Testing performed by : [facility], [address] [place] [address] MCH 25.3(L) 27.1 - 33.3 pg [facility] Comment:Testing performed by : [facility], [address] [place] [address] MCHC 32.0(L) 32.3 - 35.7 g/dL [facility] H[facility]IN Comment:Testing performed by : [facility], [address] [place] [address] RDW CV 21.7(H) 11.1 - 14.9 % [facility]ERY HUSAIN Comment:Testing performed by : [facility], [address] [place] [address] NRBC abs 0.10(H) 0.00 - 0.01 K/cumm NERY HUSAIN Comment:Testing performed by : [facility], [address] [place] [address] Blood 10/30/2024 9:10 AM CDT 10/30/2024 9:14 AM CDT us Devon Carlin MD LAB BLOOD ORDERABLES Gee juliane Result - Final NERY HUSAIN [facility] Department of Laboratories [place] [id number] * (ABNORMAL) Manual Differential (10/30/2024 9:10 AM CDT) Cells Counted 200 Comment:Testing performed by : [facility], [address] [place] [address] Neutrophil abs 7.02(H) 1.50 - 6.50 K/cumm NERY HUSAIN Comment:Testing performed by : [facility], [address] [place] [address] Lymphocyte abs 1.26 0.80 - 3.30 K/cumm [facility] Comment:Testing performed by : [facility], [address] [place] [address] Monocyte abs 0.63 0.20 - 0.80 K/cumm [facility] Comment:Testing performed by : [facility], [address] [place] [phone] Eosinophil abs 0.00 0.00 - 0.50 K/cumm [facility] Comment:Testing performed by : [facility], [address] [place] [phone] Basophil abs 0.00 0.00 - 0.10 K/cumm [facility] Comment:Testing performed by : [facility], [address] [place] [phone] Neutrophil pct 78.0 % [facility] Comment: Interpretive Data Percent cell count reference ranges are not reported, since discordance with absolute values may lead to misinterpretation of CBC data. Current Interpretive Data was last revised on 2017. Testing performed by: [facility], [address] [place] [phone] Lymphocyte pct 14.0 % [facility] Comment: Interpretive Data Percent cell count reference ranges are not reported, since discordance with absolute values may lead to misinterpretation of CBC data. Current Interpretive Data was last revised on 2017. Testing performed by: [facility], [address] [place] [phone] Monocyte pct 7.0 % [facility] Comment: Interpretive Data Percent cell count reference ranges are not reported, since discordance with absolute values may lead to misinterpretation of CBC data. Current Interpretive Data was last revised on 2017. Testing performed by: [facility], [address] [place] [phone] Eosinophil pct 0.0 % [facility] Comment: Interpretive Data Percent cell count reference ranges are not reported, since discordance with absolute values may lead to misinterpretation of CBC data. Current Interpretive Data was last revised on 2017. Testing performed by: [facility], [address] [place] [phone] Basophil pct 0.0 % [facility] Comment: Interpretive Data Percent cell count reference ranges are not reported, since discordance with absolute values may lead to misinterpretation of CBC data. Current Interpretive Data was last revised on 2017. Testing performed by: [facility], [address] [place], [place] [phone] Metamyelocyte pct 1.0(H) 0.0 - 0.0 % [facility] Comment:Testing performed by : [facility], [address] [place], [place] [phone] Myelocyte pct 1.0(H) 0.0 - 0.0 % [facility] Comment:Testing performed by : [facility], [address] [place], [place] [phone] RBC morphology NRBCs present(A) [facility] Comment:Testing performed by : [facility], [address] [place], [place] [phone] Polychromasia 1+(A) [facility] Comment:Testing performed by : [facility], [address] [place], [place] [id number] Hypochromasia 1+(A) [facility] Comment:Testing performed by : [facility], [address] [place], [place] [phone] Anisocytosis 1+(A) [facility] Comment:Testing performed by : [facility], [address] [place], [place] [phone] Poikilocytosis 1+(A) [facility] Comment:Testing performed by : [facility], [address] [place], [place] [phone] Macrocytes 1+(A) [facility] Comment:Testing performed by : [facility], [address] [place], [place] [phone] Elliptocytes 1+(A) [facility] Comment:Testing performed by : [facility], [address] [place], [place] [phone] Target cells 1+(A) [facility] Comment:Testing performed by : [facility], [address] [place], [place] [phone] Platelet estimate Adequate [facility] Comment:Testing performed by : [facility], [address] [place], [place] [phone] Giant platelets Present(A) [facility] Comment:Testing performed by : [facility], [address] [place] [phone] Blood 10/30/2024 9:10 AM CDT 10/30/2024 9:14 AM CDT Devon Carlin MD LAB BLOOD ORDERABLES Fin al Result Performing Organization Address [facility] Co de Phone Number [facility] [place] [address] * (ABNORMAL) PSA diagnostic (10/30/2024 9:10 AM [...] ORDERABLES Fin al Result Performing Organization Address [facility] de Phone Number [facility] [place] [address] * (ABNORMAL) Comprehensive metabolic panel (10/30/2024 9:10 AM CDT) Sodium 140 135 - 145 mmol/L Potassium, pl 4.9 3.3 - 4.9 mmol/L [facility] Chloride 104 97 - 110 mmol/L [facility] CO2 22 22 - 32 mmol/L [facility] Anion gap 14 2 - 15 mmol/L [facility] BUN 21 6 - 25 mg/dL [facility] Creatinine 0.86 0.80 - 1.30 mg/dL [facility] Glucose 145 70 - 199 mg/dL [facility] Comment: Interpretive Data Fasting glucose [...] 2022. Calcium 6.9(L) 8.5 - 10.3 mg/dL [facility] Bilirubin, total 0.3 0.1 - 1.2 mg/dL [facility] Protein, pl 7.0 6.5 - 8.5 g/dL [facility] Albumin 3.2(L) 3.5 - 5.0 g/dL [facility] Alk phos 540(H) 40 - 130 Units/L [facility] ALT 38 7 - 55 Units/L [facility] AST 64(H) 10 - 50 Units/L [facility] Blood 10/30/2024 9:10 AM CDT 10/30/2024 9:16 AM CDT us Devon Carlin MD LAB BLOOD ORDERABLES Fin al Result [facility] [place] [address] * Phosphorus (10/28/2024 6:45 PM CDT) [facility] Phosphorus, pl 2.5 2.3 - 4.5 mg/dL Blood 10/28/2024 6:45 PM CDT 10/28/2024 7:00 PM CDT us Vivian Fonseca MD LAB BLOOD ORDER[place] [address] * POCT glucose (10/28/2024 4:32 PM CDT) Glucose, POC 129 70 - 199 mg/dL Blood 10/28/2024 4:32 PM CDT 10/28/2024 4:32 PM CDT Vivian Fonseca MD LAB POCT ORDERABLES - DE VICE Final Result Performing Organization Address City/[facility]/[place] [address] * POCT glucose (10/28/2024 12:08 PM CDT) Glucose, POC 193 70 - 199 mg/dL Blood 10/28/2024 12:0 8 PM CDT 10/28/2024 12:08 PM CDT Vivian Fonseca MD LAB POCT ORDERABLES - DE VICE Final Result Performing Organization Address City/[facility]/ZIP Co de Phone Number [facility] [place] [address] * POCT glucose (10/28/2024 7:16 AM CDT) Glucose, POC 105 70 - 199 mg/dL Blood 10/28/2024 7:16 AM CDT 10/28/2024 7:16 AM CDT Vivian Fonseca MD LAB POCT ORDERABLES - DE VICE Final Result Performing Organization Address City/[facility]/ZIP Co de Phone Number [facility] [place] [address] * (ABNORMAL) Lactate (10/28/2024 12:51 AM CDT) Lactate 5.7(C) 0.7 - 2.0 mmol/L Blood 10/28/2024 12:5 1 AM CDT 10/28/2024 1:01 AM CDT Nina Andrew MD LAB BLOOD ORDERABLES Carina l Result Performing Organization Address City/[facility]/ZIP Co de Phone Number [facility] [place] [address] * eGFR (10/28/2024 12:51 AM CDT) [facility] eGFR 80 >=60 mL/min/1. 73 m2 Comment: [...] 1 AM CDT 10/28/2024 1:00 AM CDT us Bossman Hernandez DO LAB BLOOD ORDERABLES Final Resul t Performing Organization Address [facility] Co de Phone Number [facility] [place] [address] * (ABNORMAL) Differential, auto (10/28/2024 12:51 AM CDT) Neutrophil abs 6.30 1.50 - 6.50 K/cumm Imm gran abs 0.36(H) 0.00 - 0.10 K/cumm [facility] Lymphocyte abs 1.04 0.80 - 3.30 K/cumm [facility] Monocyte abs 0.63 0.20 - 0.80 K/cumm [facility] Eosinophil abs 0.00 0.00 - 0.50 K/cumm [facility] Basophil abs 0.01 0.00 - 0.10 K/cumm [facility] Neutrophil pct 75.5 % [facility] Comment: Interpretive Data Percent cell count reference ranges are not reported, since discordance with absolute values may lead to misinterpretation of CBC data. Current Interpretive Data was last revised on 2017. Imm gran pct 4.3 % [facility] Comment: Interpretive Data Percent cell count reference ranges are not reported, since discordance with absolute values may lead to misinterpretation of CBC data. Current Interpretive Data was last revised on 2017. Lymphocyte pct 12.5 % [facility] Comment: Interpretive Data Percent cell count reference ranges are not reported, since discordance with absolute values may lead to misinterpretation of CBC data. Current Interpretive Data was last revised on 2017. Monocyte pct 7.6 % [facility] Comment: Interpretive Data Percent cell count reference ranges are not reported, since discordance with absolute values may lead to misinterpretation of CBC data. Current Interpretive Data was last revised on 2017. Eosinophil pct 0.0 % [facility] Comment: Interpretive Data Percent cell count reference ranges are not reported, since discordance with absolute values may lead to misinterpretation of CBC data. Current Interpretive Data was last revised on 2017. Basophil pct 0.1 % [facility] Comment: Interpretive Data Percent cell count reference ranges are not reported, since discordance with absolute values may lead to misinterpretation of CBC data. Current Interpretive Data was last revised on 2017. Blood 10/28/2024 12:5 1 AM CDT 10/28/2024 1:02 AM CDT Bossman Hernandez DO LAB BLOOD ORDERABLES Final Resul t Performing Organization Address [facility] de Phone Number [facility] [place] [address] * Critical Result Callback Chemistry (10/28/2024 12:51 AM CDT) Date Notified 20241028 Time Notified [facility] TestName Lactate [facility] Called/Read Back Yumiko [facility] Credentials RN [facility] Called By RUBY [facility] Blood 10/28/2024 12:5 1 AM CDT 10/28/2024 1:01 AM CDT Nina Andrew MD LAB BLOOD ORDERABLES Carina l Result Performing Organization Address [facility] [place] [address] * (ABNORMAL) Calcium, ionized (10/28/2024 12:51 AM CDT) Pathologist [facility] Calcium, Ionized 3.65(L) 4.50 - 5.10 mg/dL Blood 10/28/2024 12:5 1 AM CDT 10/28/2024 12:58 AM CDT Nina Andrew MD LAB BLOOD ORDERABLES Carina l Result Performing Organization Address [facility] de Phone Number [facility] [place] [address] * (ABNORMAL) CBC with auto differential (10/28/2024 12:51 AM CDT) Pathologist [facility] WBC 8.34 3.80 - 9.90 K/cumm Hgb 8.4(L) 13.0 - 17.5 g/dL [facility] Hct 26.7(L) 38.9 - 50.3 % [facility] Plt 459(H) 150 - 400 K/cumm [facility] MPV 9.1 9.1 - 12.3 fL [facility] RBC 3.39(L) 4.30 - 5.80 M/cumm [facility] MCV 78.8(L) 81.3 - 96.4 fL [facility] MCH 24.8(L) 27.1 - 33.3 pg [facility] MCHC 31.5(L) 32.3 - 35.7 g/dL [facility] RDW CV 21.2(H) 11.1 - 14.9 % [facility] RDW SD 60.4(H) 35.7 - 48.1 fL [facility] NRBC abs 0.15(H) 0.00 - 0.01 K/cumm [facility] Blood 10/28/2024 12:5 1 AM CDT 10/28/2024 1:02 AM CDT Bossman Hernandez DO LAB BLOOD ORDERABLES Final Resul t Performing Organization Address City/[facility] Co de Phone Number [facility] [place] [address] * Vitamin D 25 hydroxy (10/28/2024 12:51 AM CDT) [facility] Vitamin D 25-OH 56 30 - 80 ng/mL Blood 10/28/2024 12:5 1 AM CDT 10/28/2024 1:00 AM CDT Nina Andrew MD LAB BLOOD ORDERABLES Carina l Result [facility] [place] [address] * (ABNORMAL) Phosphorus (10/28/2024 12:51 AM CDT) [facility] Phosphorus, pl 1.2(L) 2.3 - 4.5 mg/dL Blood 10/28/2024 12:5 1 AM CDT 10/28/2024 1:00 AM CDT Bossman Hernandez DO LAB BLOOD ORDERABLES Final Resul t Performing Organization Address City/[facility]/ZIP Co de Phone Number [facility] [place] [address] * (ABNORMAL) PTH (10/28/2024 12:51 AM CDT) PTH 252(H) 15 - 65 pg/mL Blood 10/28/2024 12:5 1 AM CDT 10/28/2024 1:01 AM CDT Nina Andrew MD LAB BLOOD ORDERABLES Carina l Result Performing Organization Address [facility] de Phone Number [facility] [place] [address] * (ABNORMAL) Comprehensive metabolic panel (10/28/2024 12:51 AM CDT) Pathologist [facility] Sodium 138 135 - 145 mmol/L Potassium, pl 5.0(H) 3.3 - 4.9 mmol/L [facility] Chloride 104 97 - 110 mmol/L [facility] CO2 21(L) 22 - 32 mmol/L [facility] Anion gap 13 2 - 15 mmol/L [facility] BUN 22 6 - 25 mg/dL [facility] Creatinine 0.96 0.80 - 1.30 mg/dL [facility] Glucose 138 70 - 199 mg/dL [facility] Comment: Interpretive Data Fasting glucose [...] 2022. Calcium 7.2(L) 8.5 - 10.3 mg/dL [facility] Bilirubin, total 0.2 0.1 - 1.2 mg/dL [facility] Protein, pl 6.9 6.5 - 8.5 g/dL [facility] Albumin 2.7(L) 3.5 - 5.0 g/dL [facility] Alk phos 481(H) 40 - 130 Units/L [facility] ALT 29 7 - 55 Units/L [facility] AST 47 10 - 50 Units/L [facility] Blood 10/28/2024 12:5 1 AM CDT 10/28/2024 1:00 AM CDT Bossman Hernandez DO LAB BLOOD ORDERABLES Final Resul t Performing Organization Address [facility] Co de Phone Number [facility] [place] [address] * POCT glucose (10/27/2024 8:46 PM CDT) Glucose, POC 153 70 - 199 mg/dL Blood 10/27/2024 8:46 PM CDT 10/27/2024 8:46 PM CDT Bossman Hernandez DO [facility] POCT ORDERABLES - DEVICE Fin al Result Performing Organization Address [facility] Co de Phone Number [facility] [place] [address] * POCT glucose (10/27/2024 5:33 PM CDT) Glucose, POC 191 70 - 199 mg/dL Blood 10/27/2024 5:33 PM CDT 10/27/2024 5:33 PM CDT Bossman Hernandez [facility] POCT ORDERABLES - DEVICE Fin al Result Performing Organization Address [facility] Co de Phone Number [facility] [place] [address] * US Vein Duplex Lower Extremity Bilateral Complete (10/27/2024 1:22 PM CDT) Anatomical Region Laterality Modality Vascular Bilateral Ultrasound 10/27/2024 11:0 9 AM CDT Narrative 10/28/2024 12:17 AM CDT [facility] - Department of Vascular Surgery, Vascular Laboratory [address] [place] [id number] Lower Extremity Venous Ultrasound Report Patient Name: JARRELL STEEN : 1945 (79y 5m) Study Date: 10/27/2024 11:09:57 AM Gender: M Tech: Location: [id number] Ref Provider: NINA ANDREW Quality: Adequate Order [...] Pain in Leg, Left - FINDINGS: Performing Senior Accounting Clerk: Arlette Walker RVT. Bilateral: Venous Doppler signals [...] Procedure Note Dane Krause MD - 10/28/2024 [facility] - Department of Vascular Surgery,Vascular Laboratory [address] [place] [address] Lower Extremity Venous Ultrasound Report Patient Name: JARRELL STEEN : 1945 (79y 5m) Study Date: 10/27/2024 11:09:57 AM Gender: M Tech: Location: [id number] Ref Provider: NINA ANDREW Quality: Adequate Order Provider: NINA ANDREW PROCEDURES: Vascular Report: Venous Duplex imaging was performed bilaterally in the lower extremities.The common femoral, femoral, popliteal, posterior tibial, peroneal veins wereevaluated for patency, spontaneity and phasicity with Doppler, compression and augmentationmaneuvers. Great saphenous vein proximal at the junction was evaluated with compressionmaneuvers. INDICATIONS: Pain in Leg, Left - FINDINGS: Performing Senior Accounting Clerk: Arlette Walker RVT. Bilateral: Venous Doppler signals [...] above. Electronically Signed By: Dane Krause MD [facility] 10/28/2024 12:09:06 AM CDT Nina Andrew MD [facility] US PROCEDURES Final R esult * (ABNORMAL) POCT glucose (10/27/2024 11:33 AM CDT) [facility] Glucose, POC 206(H) 70 - 199 mg/dL Blood 10/27/2024 11:3 3 AM CDT 10/27/2024 11:33 AM CDT Bossman Hernandez DO LAB POCT ORDERABLES - DEVICE Fin al Result [facility] [place] [address] * POCT glucose (10/27/2024 7:21 AM CDT) [facility] Glucose, POC 107 70 - 199 mg/dL Blood 10/27/2024 7:21 AM CDT 10/27/2024 7:21 AM CDT Bossman Hernandez DO LAB POCT ORDERABLES - DEVICE Fin al Result Performing Organization Address [facility] Co de Phone Number [facility] [place] [address] * (ABNORMAL) Lactate (10/27/2024 1:19 AM CDT) [facility] Lactate 5.8(C) 0.7 - 2.0 mmol/L Blood 10/27/2024 1:19 AM CDT 10/27/2024 1:32 AM CDT Nina Andrew MD LAB BLOOD ORDERABLES Carina l Result Performing Organization Address [facility] Co de Phone Number [facility] [place] [address] * eGFR (10/27/2024 1:19 AM CDT) [facility] eGFR 77 >=60 mL/min/1. 73 m2 Comment: [...] DO LAB BLOOD ORDERABLES Final Resul t [facility] [place] [address] * (ABNORMAL) Differential, auto (10/27/2024 1:19 AM CDT) Neutrophil abs 6.28 1.50 - 6.50 K/cumm Imm gran abs 0.19(H) 0.00 - 0.10 K/cumm [facility] Lymphocyte abs 0.91 0.80 - 3.30 K/cumm [facility] Monocyte abs 0.66 0.20 - 0.80 K/cumm [facility] Eosinophil abs 0.00 0.00 - 0.50 K/cumm [facility] Basophil abs 0.01 0.00 - 0.10 K/cumm [facility] Neutrophil pct 78.0 % [facility] Comment: Interpretive Data Percent cell count reference ranges are not reported, since discordance with absolute values may lead to misinterpretation of CBC data. Current Interpretive Data was last revised on 2017. Imm gran pct 2.4 % [facility] Comment: Interpretive Data Percent cell count reference ranges are not reported, since discordance with absolute values may lead to misinterpretation of CBC data. Current Interpretive Data was last revised on 2017. Lymphocyte pct 11.3 % [facility] Comment: Interpretive Data Percent cell count reference ranges are not reported, since discordance with absolute values may lead to misinterpretation of CBC data. Current Interpretive Data was last revised on 2017. Monocyte pct 8.2 % [facility] Comment: Interpretive Data Percent cell count reference ranges are not reported, since discordance with absolute values may lead to misinterpretation of CBC data. Current Interpretive Data was last revised on 2017. Eosinophil pct 0.0 % [facility] Comment: Interpretive Data Percent cell count reference ranges are not reported, since discordance with absolute values may lead to misinterpretation of CBC data. Current Interpretive Data was last revised on 2017. Basophil pct 0.1 % [facility] Comment: Interpretive Data Percent cell count reference ranges are not reported, since discordance with absolute values may lead to misinterpretation of CBC data. Current Interpretive Data was last revised on 2017. Blood 10/27/2024 1:19 AM CDT 10/27/2024 1:32 AM CDT Bossman Hernandez DO LAB BLOOD ORDERABLES Final Resul t Performing Organization Address City/[facility]/ZIP Co de Phone Number [facility] [place] [address] * Critical Result Callback Chemistry (10/27/2024 1:19 AM CDT) Date Notified 20241027 Time Notified 200 [facility] TestName Moustapha [facility] Called/Read Back Samantha [facility] Credentials JP [facility] Called By apple [facility] Blood 10/27/2024 1:19 AM CDT 10/27/2024 1:32 AM CDT us Nina Andrew MD LAB BLOOD ORDERABLES Carina l Result [facility] [place] [address] * Thyroid Function Spencer (10/27/2024 1:19 AM CDT) TSH 1.07 0.30 - 4.20 mcIUnit/mL Blood 10/27/2024 1:19 AM CDT 10/27/2024 1:28 AM CDT Nina Andrew MD LAB BLOOD ORDERABLES Carina l Result Performing Organization Address City/[facility] Co de Phone Number [facility] [place] [address] * (ABNORMAL) Calcium, ionized (10/27/2024 1:19 AM CDT) [facility] Calcium, Ionized 3.31(L) 4.50 - 5.10 mg/dL Blood 10/27/2024 1:19 AM CDT 10/27/2024 1:28 AM CDT Nina Andrew MD LAB BLOOD ORDERABLES Cair[place] l Result Performing Organization Address [facility] de Phone Number [facility] [place] [address] * (ABNORMAL) CBC with auto differential (10/27/2024 1:19 AM CDT) [facility] WBC 8.05 3.80 - 9.90 K/cumm Hgb 8.1(L) 13.0 - 17.5 g/dL [facility] Hct 25.9(L) 38.9 - 50.3 % [facility] Plt 443(H) 150 - 400 K/cumm [facility] MPV 8.8(L) 9.1 - 12.3 fL [facility] RBC 3.26(L) 4.30 - 5.80 M/cumm [facility] MCV 79.4(L) 81.3 - 96.4 fL [facility] MCH 24.8(L) 27.1 - 33.3 pg [facility] MCHC 31.3(L) 32.3 - 35.7 g/dL [facility] RDW CV 21.3(H) 11.1 - 14.9 % [facility] RDW SD 61.4(H) 35.7 - 48.1 fL [facility] NRBC abs 0.05(H) 0.00 - 0.01 K/cumm [facility] Blood 10/27/2024 1:19 AM CDT 10/27/2024 1:32 AM CDT Bossman Hernandez DO LAB BLOOD ORDERABLES Final Resul t Performing Organization Address [facility] de Phone Number [facility] [place] [address] * (ABNORMAL) Copper, serum (10/27/2024 1:19 AM CDT) Copper 148(H) 73 - 129 mcg/dL [facility] Comment: ADDITIONAL INFORMATION This test was developed and its performance characteristics determined by [facility] in a manner consistent with CLIA requirements. This test has not been cleared or approved by the U.S. Food and Drug Administration. Test Performed by: [facility] [place] [address] Gliding Pilot Instructor: Sue Celaya Ph.D.; CLIA# [id number] Blood 10/27/2024 1:19 AM CDT 10/27/2024 1:28 AM CDT Nina Andrew MD LAB BLOOD ORDERABLES Carina l Result Performing Organization Address [facility] de Phone Number [facility] [place] [address] [facility] * aPTT (10/27/2024 1:19 AM [...] Final Resul t Performing Organization Address [facility] de Phone Number [facility] [place] [address] * (ABNORMAL) Protime-INR (10/27/2024 1:19 AM CDT) PT 14.4(H) 9.7 - 13.0 sec INR 1.33(H) 0.90 - 1.20 [facility] Comment: Interpretive data Oral anticoagulant therapeutic ranges: Venous thromboembolism prophylaxis or treatment: 2.0-3.0 CARDIOLOGY Standard range: 2.0-3.0 High-intensity range: 2.5-3.5 Refer to indication-specific guidelines for appropriate target ranges for prosthetic heart valve replacement. Current interpretive data was last revised on 2019. Blood 10/27/2024 1:19 AM CDT 10/27/2024 1:58 AM CDT Bossman Hernandez DO LAB BLOOD ORDERABLES Final Resul t Performing Organization Address [facility] de Phone Number [facility] [place] [address] * Type and screen (10/27/2024 1:19 AM CDT) Wilfred, indirect Negative ABO Rh O Positive [facility] Blood 10/27/2024 1:19 AM CDT 10/27/2024 1:37 AM CDT Narrative [facility] - 10/27/2024 2:39 AM CDT Has the patient had Daratumumab or Isatuximab in the past 6 months?->Unknown Bossman Hernandez DO LAB BLOOD BANK TEST ORDERABLES F inal Result Performing Organization Address City/[facility] de Phone Number [facility] [place] [address] * Uric acid (10/27/2024 1:19 AM CDT) Pathologist [facility] Uric acid 3.6 3.0 - 8.0 mg/dL Blood 10/27/2024 1:19 AM CDT 10/27/2024 1:28 AM CDT Narrative [facility] - 10/27/2024 3:14 AM CDT Sunday and only. Morning draw. . Bossman Hernandez DO LAB BLOOD ORDERABLES Final Resul t Performing Organization Address [facility] de Phone Number [facility] [place] [address] * (ABNORMAL) Phosphorus (10/27/2024 1:19 AM CDT) [facility] Phosphorus, pl 2.1(L) 2.3 - 4.5 mg/dL Blood 10/27/2024 1:19 AM CDT 10/27/2024 1:28 AM CDT Bossman Hernandez DO LAB BLOOD ORDERABLES Final Resul t Performing Organization Address [facility] de Phone Number [facility] [place] [address] * (ABNORMAL) Lactate dehydrogenase (LD) (10/27/2024 1:19 AM CDT) [facility] Lactate dehydrogenase (LDH) 438(H) 100 - 250 Units/L Blood 10/27/2024 1:19 AM CDT 10/27/2024 1:28 AM CDT Narrative [facility] - 10/27/2024 3:14 AM CDT Sunday and only. Morning draw. Jiahua Hernandez DO LAB BLOOD ORDERABLES Final Resul t Performing Organization Address City/[facility] Co de Phone Number [facility] [place] [address] * Folate (10/27/2024 1:19 AM CDT) [facility] Folic acid 5.3 >=5.0 ng/mL Blood 10/27/2024 1:19 AM CDT 10/27/2024 1:28 AM CDT Nina Andrew MD LAB BLOOD ORDERABLES Carina l Result Performing Organization Address [facility] de Phone Number [facility] [place] [address] * (ABNORMAL) Vitamin B12 (10/27/2024 1:19 AM CDT) [facility] Vitamin B12 >2,000(H) 230 - 1,250 pg/mL Blood 10/27/2024 1:19 AM CDT 10/27/2024 1:28 AM CDT Nina Andrew MD LAB BLOOD ORDERABLES Carina l Result Performing Organization Address [facility] Co de Phone Number [facility] [place] [address] * (ABNORMAL) Comprehensive metabolic panel (10/27/2024 1:19 AM CDT) [facility] Sodium 140 135 - 145 mmol/L Potassium, pl 5.1(H) 3.3 - 4.9 mmol/L [facility] Chloride 104 97 - 110 mmol/L [facility] CO2 22 22 - 32 mmol/L [facility] Anion gap 14 2 - 15 mmol/L [facility] BUN 19 6 - 25 mg/dL [facility] Creatinine 1.00 0.80 - 1.30 mg/dL [facility] Glucose 162 70 - 199 mg/dL [facility] Comment: Interpretive Data Fasting glucose [...] 2022. Calcium 6.6(L) 8.5 - 10.3 mg/dL [facility] Bilirubin, total 0.3 0.1 - 1.2 mg/dL [facility] Protein, pl 6.5 6.5 - 8.5 g/dL [facility] Albumin 2.7(L) 3.5 - 5.0 g/dL [facility] Alk phos 503(H) 40 - 130 Units/L [facility] ALT 14 7 - 55 Units/L [facility] AST 44 10 - 50 Units/L [facility] Blood 10/27/2024 1:19 AM CDT 10/27/2024 1:28 AM CDT Bossman Hernandez DO LAB BLOOD ORDERABLES Final Resul t Performing Organization Address [facility] Co de Phone Number [facility] [place] [address] * POCT glucose (10/26/2024 8:01 PM CDT) [facility] Signature Glucose, POC 157 70 - 199 mg/dL Blood 10/26/2024 8:01 PM CDT 10/26/2024 8:01 PM CDT Roxikamini Hernandez DO LAB POCT ORDERABLES - DEVICE Fin al Result Performing Organization Address [facility] Co de Phone Number [facility] [place] [address] * POCT glucose (10/26/2024 5:45 PM CDT) Glucose, POC 136 70 - 199 mg/dL Blood 10/26/2024 5:45 PM CDT 10/26/2024 5:45 PM CDT Bossman Hernandez DO LAB POCT ORDERABLES - DEVICE Fin al Result Performing Organization Address [facility] [place] [address] * Infection Prevention MRSA Only (Staphylococcus aureus) Culture Nasal (10/26/2024 4:05 PM CDT) Pathologist [facility] Report Final Report: Negative Nasal 10/26/2024 4:05 PM CDT 10/26/2024 4:24 PM CDT Narrative [facility] - 10/27/2024 6:00 PM CDT Testing performed by [facility] ([phone]). Nina Andrew MD LAB MICROBIOLOGY - GENERA L ORDERABLES Final Result Performing Organization Address [facility] de Phone Number [facility] [address] * POCT glucose (10/26/2024 4:03 PM CDT) Glucose, POC 131 70 - 199 mg/dL Blood 10/26/2024 4:03 PM CDT 10/26/2024 4:03 PM CDT Bossman Hernandez DO LAB POCT ORDERABLES - DEVICE Fin al Result Performing Organization Address [facility] de Phone Number [facility] [place] [address] * POCT glucose (10/26/2024 11:09 AM CDT) Glucose, POC 129 70 - 199 mg/dL Blood 10/26/2024 11:0 9 AM CDT 10/26/2024 11:09 AM CDT Bossman Hernandez DO LAB POCT ORDERABLES - DEVICE Fin al Result Performing Organization Address [facility] Co de Phone Number [facility] [place] [address] * Carboxyhemoglobin, venous (10/26/2024 9:36 AM CDT) Pathologist [facility] Carboxyhemoglob in, venous 1.3 0.0 - 2.9 % Blood 10/26/2024 9:36 AM CDT 10/26/2024 9:50 AM CDT Nina Andrew MD LAB BLOOD ORDERABLES Carina l Result Performing Organization Address [facility] Co de Phone Number [facility] [place] [address] * (ABNORMAL) Calcium, ionized (10/26/2024 9:36 AM CDT) [facility] System Calcium, Ionized 3.22(L) 4.50 - 5.10 mg/dL Blood 10/26/2024 9:36 AM CDT 10/26/2024 9:50 AM CDT Nina Andrew MD LAB BLOOD ORDERABLES Carina l Result Performing Organization Address [facility] Co de Phone Number [facility] [place] [address] * Beta-hydroxybutyrate (10/26/2024 9:36 AM CDT) Pathologist [facility] Beta-Hydroxybut yrate 0.1 0.0 - 0.5 mmol/L Blood 10/26/2024 9:36 AM CDT 10/26/2024 9:50 AM CDT Nina Andrew MD LAB BLOOD ORDERABLES Carina l Result Performing Organization Address [facility] Co de Phone Number [facility] [place] [address] * Vitamin B1 (10/26/2024 9:36 AM CDT) Thiamine (Vit B1) 136 70 - 180 nmol/L [place] [facility] Comment: ADDITIONAL INFORMATION This test was developed and its performance characteristics determined by [facility] in a manner consistent with CLIA requirements. This test has not been cleared or approved by the U.S. Food and Drug Administration. Test Performed by: [place] [address] Gliding Pilot Instructor: Sue Celaya Ph.D.; CLIA# [id number] Blood 10/26/2024 9:36 AM CDT 10/26/2024 11:08 AM CDT Nina Andrew MD LAB BLOOD ORDERABLES Carina l Result Performing Organization Address [facility] de Phone Number [facility] [place] [address] [place] [facility] * (ABNORMAL) Blood gas, venous (10/26/2024 9:36 AM CDT) pH, Venous 7.40 7.32 - 7.43 PCO2, Venous 36(L) 40 - 50 mmHg [facility] PO2, Venous 47 mmHg [facility] Comment: Interpretive Data No Reference Range Established Current Interpretive Data was last revised on 2017. HCO3 Venous, Calculated 23 20 - 30 mmol/L [facility] BE, venous -2 mmol/L [facility] Comment: Interpretive Data No Reference Range Established Current Interpretive Data was last revised on 2017. Blood 10/26/2024 9:36 AM CDT 10/26/2024 9:50 AM CDT Nina Andrew MD LAB BLOOD ORDERABLES Carina l Result Performing Organization Address [facility] Co de Phone Number [facility] [place] [address] * Ethanol (10/26/2024 9:36 AM CDT) Ethanol <10 <=10 mg/dL Comment: Interpretive Data Legal limit of intoxication > or = 80 mg/dL Levels > or = 400 mg/dL are potentially TOXIC. Current interpretive data was last revised on 2018. Blood 10/26/2024 9:36 AM CDT 10/26/2024 9:50 AM CDT Nina Andrew MD LAB BLOOD ORDERABLES Carina l Result Performing Organization Address [facility] Co de Phone Number [facility] [place] [address] * Salicylate level (10/26/2024 9:36 AM CDT) Salicylate <9.0 <=9.0 mg/dL Comment: Interpretive Data Toxic: 30 mg/dL or greater. Current interpretive data was last revised 2023. Blood 10/26/2024 9:36 AM CDT 10/26/2024 9:50 AM CDT Nina Andrew MD LAB BLOOD ORDERABLES Carina l Result Performing Organization Address City/[facility] Co de Phone Number [facility] [place] [address] * POCT glucose (10/26/2024 8:07 AM CDT) Glucose, POC 106 70 - 199 mg/dL Blood 10/26/2024 8:07 AM CDT 10/26/2024 8:07 AM CDT [facility] POCT ORDERABLES - DEVICE Fin al Result Performing Organization Address [facility] de Phone Number [facility] [place] [address] * aPTT (10/26/2024 3:19 AM CDT) aPTT 31 28 - 38 sec Comment: Interpretive Data Heparin therapeutic range: 66.0 - 100.0 seconds. Range based on correlation with therapeutic heparin activity range of 0.3 - 0.7 Units/mL. Current interpretive data was last revised on 2023. Blood 10/26/2024 3:19 AM CDT 10/26/2024 3:28 AM CDT [facility] BLOOD ORDERABLES Final Resul t Performing Organization Address [facility] de Phone Number [facility] [place] [address] * (ABNORMAL) Protime-INR (10/26/2024 3:19 AM CDT) PT 13.4(H) 9.7 - 13.0 sec INR 1.24(H) 0.90 - 1.20 [facility] Comment: Interpretive data Oral anticoagulant therapeutic ranges: Venous thromboembolism prophylaxis or treatment: 2.0-3.0 CARDIOLOGY Standard range: 2.0-3.0 High-intensity range: 2.5-3.5 Refer to indication-specific guidelines for appropriate target ranges for prosthetic heart valve replacement. Current interpretive data was last revised on 2019. Blood 10/26/2024 3:19 AM CDT 10/26/2024 3:28 AM CDT us Bossman Hernandez DO LAB BLOOD ORDERABLES Final Resul t [facility] [place] [address] * (ABNORMAL) Differential, auto (10/26/2024 2:30 AM CDT) Neutrophil abs 7.64(H) 1.50 - 6.50 K/cumm Imm gran abs 0.23(H) 0.00 - 0.10 K/cumm [facility] Lymphocyte abs 1.05 0.80 - 3.30 K/cumm [facility] Monocyte abs 0.60 0.20 - 0.80 K/cumm [facility] Eosinophil abs 0.03 0.00 - 0.50 K/cumm [facility] Basophil abs 0.04 0.00 - 0.10 K/cumm [facility] Neutrophil pct 79.7 % [facility] Comment: Interpretive Data Percent cell count reference ranges are not reported, since discordance with absolute values may lead to misinterpretation of CBC data. Current Interpretive Data was last revised on 2017. Imm gran pct 2.4 % [facility] Comment: Interpretive Data Percent cell count reference ranges are not reported, since discordance with absolute values may lead to misinterpretation of CBC data. Current Interpretive Data was last revised on 2017. Lymphocyte pct 10.9 % [facility] Comment: Interpretive Data Percent cell count reference ranges are not reported, since discordance with absolute values may lead to misinterpretation of CBC data. Current Interpretive Data was last revised on 2017. Monocyte pct 6.3 % [facility] Comment: Interpretive Data Percent cell count reference ranges are not reported, since discordance with absolute values may lead to misinterpretation of CBC data. Current Interpretive Data was last revised on 2017. Eosinophil pct 0.3 % [facility] Comment: Interpretive Data Percent cell count reference ranges are not reported, since discordance with absolute values may lead to misinterpretation of CBC data. Current Interpretive Data was last revised on 2017. Basophil pct 0.4 % [facility] Comment: Interpretive Data Percent cell count reference ranges are not reported, since discordance with absolute values may lead to misinterpretation of CBC data. Current Interpretive Data was last revised on 2017. Blood 10/26/2024 2:30 AM CDT 10/26/2024 2:06 AM CDT Bossman Hernandez LAB BLOOD ORDERABLES Final Resul t Performing Organization Address City/[facility] Co de Phone Number [facility] Department [place] [address] * (ABNORMAL) CBC with auto differential (10/26/2024 2:30 AM CDT) WBC 9.59 3.80 - 9.90 K/cumm Hgb 9.1(L) 13.0 - 17.5 g/dL [facility] Hct 29.2(L) 38.9 - 50.3 % [facility] Plt 460(H) 150 - 400 K/cumm [facility] MPV 8.9(L) 9.1 - 12.3 fL [facility] RBC 3.61(L) 4.30 - 5.80 M/cumm [facility] MCV 80.9(L) 81.3 - 96.4 fL [facility] MCH 25.2(L) 27.1 - 33.3 pg [facility] MCHC 31.2(L) 32.3 - 35.7 g/dL [facility] RDW CV 21.6(H) 11.1 - 14.9 % [facility] RDW SD 62.4(H) 35.7 - 48.1 fL [facility] NRBC abs 0.07(H) 0.00 - 0.01 K/cumm [facility] Blood 10/26/2024 2:30 AM CDT 10/26/2024 2:06 AM CDT Bossman Hernandez DO LAB BLOOD ORDERABLES Final Resul t Performing Organization Address [facility] Co de Phone Number [facility] [place] [address] * (ABNORMAL) Lactate (10/26/2024 1:53 AM CDT) Lactate 5.7(C) 0.7 - 2.0 mmol/L Blood 10/26/2024 1:53 AM CDT 10/26/2024 2:06 AM CDT Bossman Hernandez DO LAB BLOOD ORDERABLES Final Resul t Performing Organization Address [facility] [place] [address] * eGFR (10/26/2024 1:53 AM CDT) eGFR [...] ORDERABLES Final Resul t Performing Organization Address City/[facility] Co de Phone Number [facility] [place] [address] * Critical Result Callback Chemistry (10/26/2024 1:53 AM CDT) Date Notified 20241026 Time Notified 234 [facility] TestName Lactate NERY HUSAIN Called/Read Back Melissa Gonzales [facility] Credentials RN [facility] Called By RKM [facility] Blood 10/26/2024 1:53 AM CDT 10/26/2024 2:06 AM CDT us Bossman Hernandez DO LAB BLOOD ORDERABLES Final Resul t Performing Organization Address [facility] de Phone Number [facility] [place] [address] * Uric acid (10/26/2024 1:53 AM CDT) Pathologist [facility] Uric acid 3.5 3.0 - 8.0 mg/dL Blood 10/26/2024 1:53 AM CDT 10/26/2024 2:06 AM CDT Narrative [facility] - 10/26/2024 2:34 AM CDT Sunday and only. Morning draw. . us Bossman Hernandez DO LAB BLOOD ORDERABLES Final Resul t Performing Organization Address [facility] de Phone Number [facility] [place] [address] * (ABNORMAL) Phosphorus (10/26/2024 1:53 AM CDT) Phosphorus, pl 1.3(L) 2.3 - 4.5 mg/dL Blood 10/26/2024 1:53 AM CDT 10/26/2024 2:06 AM CDT us Bossman Hernandez DO LAB BLOOD ORDERABLES Final Resul t Performing Organization Address [facility]/ZIP Co de Phone Number [facility] [place] [address] * (ABNORMAL) Lactate dehydrogenase (LD) (10/26/2024 1:53 AM CDT) [facility] Lactate dehydrogenase (LDH) 585(H) 100 - 250 Units/L Blood 10/26/2024 1:53 AM CDT 10/26/2024 2:06 AM CDT Narrative [facility] - 10/26/2024 2:34 AM CDT Sunday and only. Morning draw. Telephone report made to: eMlissa Gonzales RN on 10/26/2024 02:24:28 CDT by . Bossman Hernandez DO LAB BLOOD ORDERABLES Final Resul t Performing Organization Address [facility] de Phone Number [facility] [place] [address] * (ABNORMAL) Comprehensive metabolic panel (10/26/2024 1:53 AM CDT) [facility] Sodium 141 135 - 145 mmol/L Potassium, pl 4.2 3.3 - 4.9 mmol/L [facility] Chloride 103 97 - 110 mmol/L [facility] CO2 23 22 - 32 mmol/L [facility] Anion gap 15 2 - 15 mmol/L [facility] BUN 15 6 - 25 mg/dL [facility] Creatinine 0.80 0.80 - 1.30 mg/dL [facility] Glucose 200(H) 70 - 199 mg/dL [facility] Comment: Interpretive Data Fasting glucose [...] 2022. Calcium 6.6(L) 8.5 - 10.3 mg/dL [facility] Bilirubin, total 0.3 0.1 - 1.2 mg/dL [facility] Protein, pl 6.8 6.5 - 8.5 g/dL [facility] Albumin 3.1(L) 3.5 - 5.0 g/dL [facility] Alk phos 515(H) 40 - 130 Units/L [facility] ALT 20 7 - 55 Units/L [facility] AST 91(H) 10 - 50 Units/L [facility] Blood 10/26/2024 1:53 AM CDT 10/26/2024 2:06 AM CDT Bossman Hernandez DO LAB BLOOD ORDERABLES Final Resul t Performing Organization Address City/[facility] Co de Phone Number [facility] [place] [address] * (ABNORMAL) Lactate (10/25/2024 9:40 PM CDT) Pathologist [facility] Lactate 6.3(C) 0.7 - 2.0 mmol/L Blood 10/25/2024 9:40 PM CDT 10/25/2024 9:50 PM CDT Roxikamini Hernandez LAB BLOOD ORDERABLES Final Resul t [facility] [address] [place] [address] * eGFR (10/25/2024 9:40 PM CDT) Pathologist [facility] eGFR 89 >=60 mL/min/1. 73 m2 Comment: [...] DO LAB BLOOD ORDERABLES Final Resul t [facility] [place] [address] * (ABNORMAL) Differential, auto (10/25/2024 9:40 PM CDT) Neutrophil abs 8.38(H) 1.50 - 6.50 K/cumm Imm gran abs 0.27(H) 0.00 - 0.10 K/cumm [facility] Lymphocyte abs 1.34 0.80 - 3.30 K/cumm [facility] Monocyte abs 1.04(H) 0.20 - 0.80 K/cumm [facility] Eosinophil abs 0.08 0.00 - 0.50 K/cumm [facility] Basophil abs 0.06 0.00 - 0.10 K/cumm [facility] Neutrophil pct 75.1 % [facility] Comment: Interpretive Data Percent cell count reference ranges are not reported, since discordance with absolute values may lead to misinterpretation of CBC data. Current Interpretive Data was last revised on 2017. Imm gran pct 2.4 % [facility] Comment: Interpretive Data Percent cell count reference ranges are not reported, since discordance with absolute values may lead to misinterpretation of CBC data. Current Interpretive Data was last revised on 2017. Lymphocyte pct 12.0 % [facility] Comment: Interpretive Data Percent cell count reference ranges are not reported, since discordance with absolute values may lead to misinterpretation of CBC data. Current Interpretive Data was last revised on 2017. Monocyte pct 9.3 % [facility] Comment: Interpretive Data Percent cell count reference ranges are not reported, since discordance with absolute values may lead to misinterpretation of CBC data. Current Interpretive Data was last revised on 2017. Eosinophil pct 0.7 % [facility] Comment: Interpretive Data Percent cell count reference ranges are not reported, since discordance with absolute values may lead to misinterpretation of CBC data. Current Interpretive Data was last revised on 2017. Basophil pct 0.5 % [facility] Comment: Interpretive Data Percent cell count reference ranges are not reported, since discordance with absolute values may lead to misinterpretation of CBC data. Current Interpretive Data was last revised on 2017. Blood 10/25/2024 9:40 PM CDT 10/25/2024 9:50 PM CDT Bossman Hernandez DO LAB BLOOD ORDERABLES Final Resul t Performing Organization Address City/[facility]/ZIP Co de Phone Number [facility] [place] [address] * Critical Result Callback Chemistry (10/25/2024 9:40 PM CDT) Date Notified 20241025 Time Notified 2220 [facility] TestName [facility]actate [facility] Called/Read Back Melissa Phillipsisidro GABRIEL [facility] Credentials RN [facility] Called By SB [facility] Blood 10/25/2024 9:40 PM CDT 10/25/2024 9:50 PM CDT Bossman Hernandez DO LAB BLOOD ORDERABLES Final Resul t [facility] [place] [address] * (ABNORMAL) CBC with auto differential (10/25/2024 9:40 PM CDT) WBC 11.17(H) 3.80 - 9.90 K/cumm Hgb 9.4(L) 13.0 - 17.5 g/dL [facility] Hct 30.8(L) 38.9 - 50.3 % [facility] Plt 505(H) 150 - 400 K/cumm [facility] MPV 8.9(L) 9.1 - 12.3 fL [facility] RBC 3.80(L) 4.30 - 5.80 M/cumm [facility] MCV 81.1(L) 81.3 - 96.4 fL [facility] MCH 24.7(L) 27.1 - 33.3 pg [facility] MCHC 30.5(L) 32.3 - 35.7 g/dL [facility] RDW CV 21.5(H) 11.1 - 14.9 % [facility] RDW SD 62.2(H) 35.7 - 48.1 fL [facility] NRBC abs 0.11(H) 0.00 - 0.01 K/cumm [facility] Blood 10/25/2024 9:40 PM CDT 10/25/2024 9:50 PM CDT us Bossman Hernandez DO LAB BLOOD ORDERABLES Final Resul t [facility] [place] [address] * Type and screen (10/25/2024 9:40 PM CDT) Pathologist [facility] ABO Rh O Positive Wilfred, indirect Negative [facility] Blood 10/25/2024 9:40 PM CDT 10/25/2024 9:59 PM CDT Narrative [facility] - 10/25/2024 10:48 PM CDT Has the patient had Daratumumab or Isatuximab in the past 6 months?->Unknown us Bossman Hernandez DO LAB BLOOD BANK TEST ORDERABLES F inal Result Performing Organization Address [facility] Co de Phone Number [facility] [place] [address] * (ABNORMAL) CRP (acute phase) (10/25/2024 9:40 PM CDT) CRP 101.6(H) <=10.0 mg/L Blood 10/25/2024 9:4 0 PM CDT 10/25/2024 11:39 PM CDT Bossman Hernandez DO LAB BLOOD ORDERABLES Final Resul t Performing Organization Address [facility] de Phone Number [facility] [place] [address] * (ABNORMAL) Phosphorus (10/25/2024 9:40 PM CDT) Phosphorus, pl 1.4(L) 2.3 - 4.5 mg/dL Blood 10/25/2024 9:40 PM CDT 10/25/2024 9:50 PM CDT us Bossman Hernandez DO LAB BLOOD ORDERABLES Final Resul t Performing Organization Address [facility] Co de Phone Number [facility] [place] [address] * Magnesium (10/25/2024 9:40 PM CDT) Magnesium 1.8 1.4 - 2.5 mg/dL Blood 10/25/2024 9:40 PM CDT 10/25/2024 9:50 PM CDT us Bossman Hernandez DO LAB BLOOD ORDERABLES Final Resul t Performing Organization Address [facility] Co de Phone Number [facility] [place] [address] * (ABNORMAL) Lipid panel (10/25/2024 9:40 PM [...] revised on 2018. Triglycerides 254(H) <=149 mg/dL [facility] Comment: Interpretive Data Ages < or = [...] revised on 2018. HDL 45 >=40 mg/dL [facility] Comment: Interpretive Data Ages < or = [...] on 2018. LDL, calculated 56 <=129 mg/dL [facility] Comment: Interpretive Data Ages < or = 19 years Acceptable: <110 mg/dL Borderline high: 110-129 mg/dL High: >or= 130 mg/dL Ages > or = 20 years Optimal: <100 mg/dL Near optimal: 100-129 mg/dL Borderline high: 130-159 mg/dL High: >160 mg/dL Calculated using the Dov LDL-C estimating equation. This equation was implemented on 2024. Prior to this date LDL-C was estimated using the Friedewald equation. Literature References: 1. Expert Panel on Integrated Guidelines for Cardiovascular Health and Risk Reduction in Children and Adolescents. Pediatrics 2011;128:S213 2. NCEP Expert Panel. Circulation 2004;110:227 3. Dov Lopez et al. BELA Cardiol. 2020 November 20;5(5):540-548. doi: 10.1001/jamacardio.2020.0013 Current Interpretive Data was last revised on 2024. Non-HDL Cholesterol 96 mg/dL [facility] Comment: Interpretive Data Ages < or = [...] last revised on 2018. Chol/HDL ratio 3 [facility] Blood 10/25/2024 9:40 PM CDT 10/25/2024 9:50 PM CDT Narrative [facility] - 10/26/2024 12:41 AM CDT Reflex us Bossman Hernandez DO LAB BLOOD ORDERABLES Final Resul t [facility] [place] [address] * (ABNORMAL) Comprehensive metabolic panel (10/25/2024 9:40 PM CDT) [facility] Sodium 140 135 - 145 mmol/L Potassium, pl 4.1 3.3 - 4.9 mmol/L [facility] Chloride 101 97 - 110 mmol/L [facility] CO2 22 22 - 32 mmol/L [facility] Anion gap 17(H) 2 - 15 mmol/L [facility] BUN 15 6 - 25 mg/dL [facility] Creatinine 0.82 0.80 - 1.30 mg/dL [facility] Glucose 142 70 - 199 mg/dL [facility] Comment: Interpretive Data Fasting glucose [...] 2022. Calcium 6.8(L) 8.5 - 10.3 mg/dL [facility] Bilirubin, total 0.3 0.1 - 1.2 mg/dL [facility] Protein, pl 7.0 6.5 - 8.5 g/dL [facility] Albumin 3.1(L) 3.5 - 5.0 g/dL [facility] Alk phos 500(H) 40 - 130 Units/L [facility] ALT 19 7 - 55 Units/L [facility] AST 91(H) 10 - 50 Units/L [facility] Blood 10/25/2024 9:40 PM CDT 10/25/2024 9:50 PM CDT us Bossman Hernandez DO LAB BLOOD ORDERABLES Final Resul t [facility] [place] [address] * CT Abdomen Pelvis WO Contrast (10/25/2024 [...] * POCT glucose (10/25/2024 7:41 PM CDT) [facility] Glucose, POC 116 70 - 199 mg/dL Blood 10/25/2024 7:41 PM CDT 10/25/2024 7:41 PM CDT us Devon Carlin MD LAB POCT ORDERABLES - DE VICE Final Result Performing Organization Address City/[facility]/ZIP Co de Phone Number [facility] [place] [address] * POCT glucose (10/25/2024 4:47 PM CDT) [facility] Glucose, POC 100 70 - 199 mg/dL Blood 10/25/2024 4:47 PM CDT 10/25/2024 4:47 PM CDT us Devon Carlin MD LAB POCT ORDERABLES - DE VICE Final Result Performing Organization Address City/[facility]/ZIP Co de Phone Number [facility] [place] [address] * Critical Result Callback Chemistry (10/25/2024 4:12 PM CDT) [facility] Date Notified 20241025 Time Notified 1625 [facility] TestName Lactate Whole Blood [facility] Called/Read Back Jazmín GABRIEL [facility] Credentials PA [facility] Called By NAVARRO HUSAIN Blood 10/25/2024 4:12 PM CDT 10/25/2024 4:20 PM CDT us Jazmín CONTI LAB BLOOD ORDERABLES Carina l Result Performing Organization Address City/[facility]/[place] [address] * (ABNORMAL) Lactate, whole blood (10/25/2024 4:12 PM CDT) Lactate, bld 5.6(C) 0.7 - 2.0 mmol/L Blood 10/25/2024 4:12 PM CDT 10/25/2024 4:20 PM CDT Narrative NERY ARAGON - 10/25/2024 4:23 PM CDT Draw after IVF completed Jazmín CONTI LAB BLOOD ORDERABLES Carina l Result [facility] [place] [address] * (ABNORMAL) Sepsis Lactate w/ Reflex (10/25/2024 2:28 PM CDT) Sepsis Lactate 5.6(C) 0.7 - 2.0 mmol/L Blood 10/25/2024 2:28 PM CDT 10/25/2024 2:34 PM CDT Matthew Santiago MD LAB BLOOD ORDERABLES Final Res ult Performing Organization Address [facility]/ZIP Co de Phone Number [facility] [place] [address] * Critical Result Callback Chemistry (10/25/2024 2:28 PM CDT) Date Notified 20241025 Time Notified 3 [facility] HUSAIN TestName Lactate Whole Blood [facility] Called/Read Back Jazmín HUSAIN Credentials PA NERY HUSAIN Called By NAVARRO HUSAIN Blood 10/25/2024 2:28 PM CDT 10/25/2024 2:34 PM CDT Jazmín CONTI LAB BLOOD ORDERABLES Carina l Result [facility] [place] [address] * Critical Result Callback Chemistry (10/25/2024 2:28 PM CDT) Date Notified 20241025 Time Notified 144 [facility] TestName Sepsis Lactate [facility] Called/Read Back Jazmín GABRIEL [facility] Credentials PA NERY HUSAIN Called By TP NERY HUSAIN Blood 10/25/2024 2:28 PM CDT 10/25/2024 2:34 PM CDT Matthew Santiago MD LAB BLOOD ORDERABLES Final Res ult [facility] [place] [address] * (ABNORMAL) Lactate, whole blood (10/25/2024 2:28 PM CDT) Lactate, bld 5.2(C) 0.7 - 2.0 mmol/L Blood 10/25/2024 2:28 PM CDT 10/25/2024 2:34 PM CDT Narrative [facility] - 10/25/2024 2:39 PM CDT After IVF is completed - per MTA request Jazmín CONTI LAB BLOOD ORDERABLES Carina l Result Performing Organization Address City/[facility]/ZIP Co de Phone Number [facility] [place] [address] * XR Chest 1 Vw Portable (10/25/2024 [...] 12-LEAD (10/25/2024 11:38 AM CDT) Narrative [facility] - 10/25/2024 11:38 AM CDT Herbie Moses MD 10/25/2024 11:39 AM ECG 12 lead Date/Time: 10/25/2024 11:38 AM Performed by: Herbie Moses MD Authorized by: Matthew Santiago MD Comments: Electrocardiogram from 11:33 a.m. manifest normal sinus rhythm at a rate of 82; normal MN and QRS interval with a prolonged QTC [...] sinus rhythm at arate of 82; normal MN and QRS interval with a prolonged QTC interval0.5-8; normal P, R, and T-wave axis; no evidence of atrial enlargement orventricular hypertrophy; nonspecific ST segment changes and T-waveinversions primarily in precordial leads V1 and V2 and flattening in limblead 3 Herbie Moses MD 10/25/24 1139 Matthew Santiago MD ECG ORDERABLES Final Result [facility] * (ABNORMAL) Urinalysis reflex to microscopic and culture Urine (10/25/2024 11:33 AM CDT) Color, ur Straw Yellow Clarity, ur Clear Clear [facility] Specific gravity, ur 1.020 1.003 - 1.030 [facility] pH, urine 7.5 [facility] Comment: Interpretive Data U rine pH is affected by diet, medications, systemic acid-base disturbances, and renal tubular function. pH may affect urinary stone formation. For example, urine pH below 6.0 may help reduce the tendency for calcium phosphate stones and pH greater than 6.0 may reduce the tendency for uric acid stone formation. Source: [facility] Current Interpretive Data was last revised on 2017 Protein, ur ql 1+(A) Negative [facility] Glucose, ur ql Negative Negative [facility] Ketones, ur Negative Negative [facility] Bilirubin, ur Negative Negative [facility] Blood, ur Negative Negative [facility] Urobilinogen, ur 4.0(A) <2.0 mg/dL [facility] Nitrite, ur Negative Negative [facility] Leukocyte esterase, ur Negative Negative [facility] UA reflex comment Reflex to microscopic UA will be performed. [facility] Urine 10/25/2024 11:3 3 AM CDT 10/25/2024 11:38 AM CDT Matthew Santiago MD LAB MICROBIOLOGY - GENERAL ORD ERABLES Final Result Performing Organization Address City/[facility]/ZIP Co de Phone Number [facility] [place] [address] * (ABNORMAL) Urinalysis, microscopic only (10/25/2024 11:33 AM CDT) Pathologist [facility] WBC, ur 0-5 0 - 5 /HPF RBC, ur 0-2 0 - 2 /HPF [facility] Yeast, ur Trace(A) [facility] Culture Reflex Comment Reflex conditions for urine culture (WBC >10) not met. [facility] Urine 10/25/2024 11:3 3 AM CDT 10/25/2024 11:38 AM CDT Matthew Santiago MD LAB URINE ORDERABLES Final Res ult Performing Organization Address [facility] Co de Phone Number [facility] [place] [address] * Respiratory pathogen panel Nasopharyngeal (10/25/2024 11:27 AM CDT) [facility] Influenza A RNA Not Detected Not Detected Influenza B RNA Not Detected Not Detected [facility] RSV RNA Not Detected Not Detected [facility] COVID-19 RNA Not Detected Not Detected [facility] Coronavirus 229E RNA Not Detected Not Detected [facility] Coronavirus HKU1 RNA Not Detected Not Detected [facility] Coronavirus NL63 RNA Not Detected Not Detected [facility] Coronavirus OC43 RNA Not Detected Not Detected [facility] Adenovirus DNA Not Detected Not Detected [facility] Metapneumovirus RNA Not Detected Not Detected [facility] Rhinovirus/Enterov irus RNA Not Detected Not Detected [facility] Parainfluenza 1 RNA Not Detected Not Detected [facility] Parainfluenza 2 RNA Not Detected Not Detected [facility] Parainfluenza 3 RNA Not Detected Not Detected [facility] Parainfluenza 4 RNA Not Detected Not Detected [facility] B. pertussis DNA Not Detected Not Detected [facility] B. parapertussis DNA Not Detected Not Detected [facility] C. pneumoniae DNA Not Detected Not Detected [facility] M. pneumoniae DNA Not Detected Not Detected [facility] Nasopharyngeal 10/25/2024 11 :27 AM CDT 10/25/2024 12:19 PM CDT [facility] - 10/25/2024 1:10 PM CDT Is the Patient experiencing symptoms consistent with COVID?->No Surveillance testing for transplant patient?->No Interpretive Data [employer] FilmArray Respiratory Panel (RP2.1) assay is a [...] patient with possible respiratory tract infection. The [employer] RP2.1 assay has FDA clearance for testing of MAILING MANAGER swabs. The performance of additional specimen types has been assessed by the performing laboratory. The performance characteristics of this assay have been determined by [facility] Molecular Infectious Disease Laboratory. Current interpretive data was last revised on 22. us Matthew Santiago MD LAB MICROBIOLOGY - GENERAL ORD ERABLES Final Result NERY HUSAIN [facility] Department [place] [address] * Blood culture Blood Peripheral (10/25/2024 11:27 AM CDT) Report Final Report: No growth Blood (Peripheral) 10/25/2024 11:27 AM CDT 10/25/2024 11:42 AM CDT Narrative NERY HUSAIN - 10/29/2024 12:00 PM CDT From a [...] performance characteristics have been verified by the [facility] Microbiology Laboratory. For questions about this culture, contact the Microbiology Laboratory at [phone]. Interpretive data was last revised on 24. us Matthew Santiago MD LAB MICROBIOLOGY - GENERAL ORD ERABLES Final Result [facility] [place] [address] * (ABNORMAL) Sepsis Lactate w/ Reflex (10/25/2024 11:19 AM CDT) Sepsis Lactate 5.5(C) 0.7 - 2.0 mmol/L Blood 10/25/2024 11:1 9 AM CDT 10/25/2024 11:24 AM CDT us Matthew Santiago MD LAB BLOOD ORDERABLES Final Res ult Performing Organization Address City/[facility]/ZIP Co de Phone Number [facility] [place] [address] * Critical Result Callback Chemistry (10/25/2024 11:19 AM CDT) Date Notified 20241025 Time Notified 1130 NERY HUSAIN TestName Sepsis Lactate NERY HUSAIN Called/Read Back Matthew HUSAIN Credentials MD NERY HUSAIN Called By edie HUSAIN Blood 10/25/2024 11:1 9 AM CDT 10/25/2024 11:24 AM CDT us Matthew Santiago MD LAB BLOOD ORDERABLES Final Res ult [facility] [place] [address] * Blood culture Blood Peripheral (10/25/2024 11:19 AM CDT) Report Final Report: No growth Blood (Peripheral) 10/25/2024 11:19 AM CDT 10/25/2024 11:42 AM CDT Narrative NERY HUSAIN - 10/29/2024 12:00 PM CDT Draw Blood [...] performance characteristics have been verified by the [facility] Microbiology Laboratory. For questions about this culture, contact the Microbiology Laboratory at [phone]. Interpretive data was last revised on 24. us Matthew Santiago MD LAB MICROBIOLOGY - GENERAL ORD ERABLES Final Result [facility] Department [place] [address] * (ABNORMAL) Sepsis Lactate w/ Reflex (10/25/2024 10:53 AM CDT) Sepsis Lactate 5.3(C) 0.7 - 2.0 mmol/L Blood 10/25/2024 10:5 3 AM CDT 10/25/2024 10:58 AM CDT us Matthew Santiago MD LAB BLOOD ORDERABLES Final Res ult NERY [facility] [place] [address] * eGFR (10/25/2024 10:53 AM CDT) Pathologist [facility] eGFR 89 >=60 mL/min/1. 73 m2 Comment: [...] MD LAB BLOOD ORDERABLES Final Res ult [facility] Department [place] [address] * (ABNORMAL) Differential, auto (10/25/2024 10:53 AM CDT) [facility] Neutrophil abs 7.90(H) 1.50 - 6.50 K/cumm Imm gran abs 0.24(H) 0.00 - 0.10 K/cumm [facility] Lymphocyte abs 1.39 0.80 - 3.30 K/cumm [facility] Monocyte abs 1.01(H) 0.20 - 0.80 K/cumm [facility] Eosinophil abs 0.04 0.00 - 0.50 K/cumm [facility] Basophil abs 0.04 0.00 - 0.10 K/cumm [facility] Neutrophil pct 74.3 % [facility] Comment: Interpretive Data Percent cell count reference ranges are not reported, since discordance with absolute values may lead to misinterpretation of CBC data. Current Interpretive Data was last revised on 2017. Imm gran pct 2.3 % [facility] Comment: Interpretive Data Percent cell count reference ranges are not reported, since discordance with absolute values may lead to misinterpretation of CBC data. Current Interpretive Data was last revised on 2017. Lymphocyte pct 13.1 % NERY [facility] Comment: Interpretive Data Percent cell count reference ranges are not reported, since discordance with absolute values may lead to misinterpretation of CBC data. Current Interpretive Data was last revised on 2017. Monocyte pct 9.5 % NERY [facility] Comment: Interpretive Data Percent cell count reference ranges are not reported, since discordance with absolute values may lead to misinterpretation of CBC data. Current Interpretive Data was last revised on 2017. Eosinophil pct 0.4 % NERY [facility] Comment: Interpretive Data Percent cell count reference ranges are not reported, since discordance with absolute values may lead to misinterpretation of CBC data. Current Interpretive Data was last revised on 2017. Basophil pct 0.4 % [facility] Comment: Interpretive Data Percent cell count reference ranges are not reported, since discordance with absolute values may lead to misinterpretation of CBC data. Current Interpretive Data was last revised on 2017. Blood 10/25/2024 10:5 3 AM CDT 10/25/2024 11:19 AM CDT us Matthew Santiago MD LAB BLOOD ORDERABLES Final Res ult [facility]ERY [facility] Department [place] [address] * Critical Result Callback Chemistry (10/25/2024 10:53 AM CDT) Date Notified 20241025 Time Notified 1104 NERY HUSAIN TestName Sepsis Lactate NERY ARAGON Called/Read Back Matthew ARAGON Credentials MD NERY ARAGON Called By [facility] NERY ARAGON Blood 10/25/2024 10:5 3 AM CDT 10/25/2024 10:58 AM CDT Matthew Santiago MD LAB BLOOD ORDERABLES Final Res ult [facility] [place] [address] * (ABNORMAL) CBC with auto differential (10/25/2024 10:53 AM CDT) [facility] WBC 10.62(H) 3.80 - 9.90 K/cumm Hgb 8.9(L) 13.0 - 17.5 g/dL [facility] Hct 28.2(L) 38.9 - 50.3 % [facility] Plt 487(H) 150 - 400 K/cumm [facility] MPV 8.5(L) 9.1 - 12.3 fL [facility] RBC 3.51(L) 4.30 - 5.80 M/cumm [facility] MCV 80.3(L) 81.3 - 96.4 fL [facility] MCH 25.4(L) 27.1 - 33.3 pg [facility] MCHC 31.6(L) 32.3 - 35.7 g/dL [facility] RDW CV 21.5(H) 11.1 - 14.9 % [facility] RDW SD 62.0(H) 35.7 - 48.1 fL [facility] NRBC abs 0.11(H) 0.00 - 0.01 K/cumm [facility] Blood 10/25/2024 10:5 3 AM CDT 10/25/2024 11:19 AM CDT Matthew Santiago MD LAB BLOOD ORDERABLES Final Res ult [facility] [place] [address] * (ABNORMAL) Comprehensive metabolic panel (10/25/2024 10:53 AM CDT) [facility] Sodium 142 135 - 145 mmol/L Potassium, pl 4.0 3.3 - 4.9 mmol/L [facility] Chloride 104 97 - 110 mmol/L [facility] CO2 24 22 - 32 mmol/L [facility] Anion gap 14 2 - 15 mmol/L [facility] BUN 18 6 - 25 mg/dL [facility] Creatinine 0.84 0.80 - 1.30 mg/dL [facility] Glucose 119 70 - 199 mg/dL [facility] Comment: Interpretive Data Fasting glucose [...] 2022. Calcium 6.7(L) 8.5 - 10.3 mg/dL [facility] Bilirubin, total 0.2 0.1 - 1.2 mg/dL [facility] Protein, pl 6.6 6.5 - 8.5 g/dL [facility] Albumin 3.0(L) 3.5 - 5.0 g/dL [facility] Alk phos 428(H) 40 - 130 Units/L [facility] ALT 18 7 - 55 Units/L [facility] AST 82(H) 10 - 50 Units/L [facility] Blood 10/25/2024 10:5 3 AM CDT 10/25/2024 11:19 AM CDT us Matthew Santiago MD LAB BLOOD ORDERABLES Final Res ult [facility] [place] [address] * POCT glucose (10/25/2024 9:37 AM CDT) Pathologist [facility] Glucose, POC 146 70 - 199 mg/dL Blood 10/25/2024 9:37 AM CDT 10/25/2024 9:37 AM CDT Notinfile Unknown LAB POCT ORDERABLES - DEVICE F inal Result Performing Organization Address [facility] Co de Phone Number NERY [facility] [place] [address] * eGFR (10/24/2024 12:27 AM CDT) [facility] eGFR 82 >=60 mL/min/1. 73 m2 Comment: [...] ORDERABLES Carina l Result Performing Organization Address [facility]/ZIP Co de Phone Number NERY [facility] Department [place] [address] * (ABNORMAL) Differential, auto (10/24/2024 12:27 AM CDT) Pathologist [facility] Neutrophil abs 7.92(H) 1.50 - 6.50 K/cumm Imm gran abs 0.17(H) 0.00 - 0.10 K/cumm [facility] Lymphocyte abs 1.01 0.80 - 3.30 K/cumm [facility] Monocyte abs 0.37 0.20 - 0.80 K/cumm [facility] Eosinophil abs 0.08 0.00 - 0.50 K/cumm [facility] Basophil abs 0.09 0.00 - 0.10 K/cumm [facility] Neutrophil pct 82.2 % [facility] Comment: Interpretive Data Percent cell count reference ranges are not reported, since discordance with absolute values may lead to misinterpretation of CBC data. Current Interpretive Data was last revised on 2017. Imm gran pct 1.8 % [facility] Comment: Interpretive Data Percent cell count reference ranges are not reported, since discordance with absolute values may lead to misinterpretation of CBC data. Current Interpretive Data was last revised on 2017. Lymphocyte pct 10.5 % [facility] Comment: Interpretive Data Percent cell count reference ranges are not reported, since discordance with absolute values may lead to misinterpretation of CBC data. Current Interpretive Data was last revised on 2017. Monocyte pct 3.8 % [facility] Comment: Interpretive Data Percent cell count reference ranges are not reported, since discordance with absolute values may lead to misinterpretation of CBC data. Current Interpretive Data was last revised on 2017. Eosinophil pct 0.8 % [facility] Comment: Interpretive Data Percent cell count reference ranges are not reported, since discordance with absolute values may lead to misinterpretation of CBC data. Current Interpretive Data was last revised on 2017. Basophil pct 0.9 % [facility] Comment: Interpretive Data Percent cell count reference ranges are not reported, since discordance with absolute values may lead to misinterpretation of CBC data. Current Interpretive Data was last revised on 2017. Blood 10/24/2024 12:2 7 AM CDT 10/24/2024 12:44 AM CDT Young Thapa MD LAB BLOOD ORDERABLES Carina l Result [facility] [place] [address] * (ABNORMAL) CBC with auto differential (10/24/2024 12:27 AM CDT) [facility] WBC 9.64 3.80 - 9.90 K/cumm Hgb 8.7(L) 13.0 - 17.5 g/dL [facility] Hct 28.1(L) 38.9 - 50.3 % [facility] Plt 425(H) 150 - 400 K/cumm [facility] MPV 8.6(L) 9.1 - 12.3 fL [facility] RBC 3.40(L) 4.30 - 5.80 M/cumm [facility] MCV 82.6 81.3 - 96.4 fL [facility] MCH 25.6(L) 27.1 - 33.3 pg [facility] MCHC 31.0(L) 32.3 - 35.7 g/dL [facility] RDW CV 21.6(H) 11.1 - 14.9 % [facility] RDW SD 62.8(H) 35.7 - 48.1 fL [facility] NRBC abs 0.05(H) 0.00 - 0.01 K/cumm [facility] Blood 10/24/2024 12:2 7 AM CDT 10/24/2024 12:44 AM CDT Young Thapa MD LAB BLOOD ORDERABLES Carina l Result [facility] [place] [address] * (ABNORMAL) Phosphorus (10/24/2024 12:27 AM CDT) Pathologist [facility] Phosphorus, pl 1.8(L) 2.3 - 4.5 mg/dL Blood 10/24/2024 12:2 7 AM CDT 10/24/2024 12:44 AM CDT us Young Thapa MD LAB BLOOD ORDERABLES Carina gardner Result [facility] [place] [address] * (ABNORMAL) Comprehensive metabolic panel (10/24/2024 12:27 AM CDT) Sodium 143 135 - 145 mmol/L Potassium, pl 4.5 3.3 - 4.9 mmol/L [facility] Chloride 106 97 - 110 mmol/L [facility] CO2 20(L) 22 - 32 mmol/L [facility] Anion gap 17(H) 2 - 15 mmol/L [facility] BUN 15 6 - 25 mg/dL [facility] Creatinine 0.94 0.80 - 1.30 mg/dL [facility] Glucose 161 70 - 199 mg/dL [facility] Comment: Interpretive Data Fasting glucose [...] 2022. Calcium 6.9(L) 8.5 - 10.3 mg/dL [facility] Bilirubin, total 0.2 0.1 - 1.2 mg/dL [facility] Protein, pl 6.9 6.5 - 8.5 g/dL [facility] Albumin 3.1(L) 3.5 - 5.0 g/dL [facility] Alk phos 469(H) 40 - 130 Units/L [facility] ALT 18 7 - 55 Units/L [facility] AST 38 10 - 50 Units/L [facility] Blood 10/24/2024 12:2 7 AM CDT 10/24/2024 12:44 AM CDT us Young Thapa MD LAB BLOOD ORDERABLES Carina gardner Result NERY [facility] [place] [address] * XR Femur Right 2 or More [...] are no knee joint effusions. Procedure Note Massiom Brown MD PhD - 10/24/2024 EXAMINATION: Scoliosis [...] 2:04 PM on 10/23/2024. Dictated by: Ankit Manna, M.D. The radiology attending physician has personally reviewed this study, and had reviewed and/or edited this written report and agrees with it. Electronically signed by: Mendoza Quinn M.D. Narrative 10/23/2024 2:30 PM CDT EXAMINATION: TUMOR FDG-PET/CT IMAGING DATE OF STUDY: 10/23/2024 SCANNER: [facility] [employer] (NV1). This is a high-resolution scanner, which can result in higher SUVs (and even detection of previously unrecognized small lesions) compared to older scanners. RADIOPHARMACEUTICAL: 15.8 mCi F-18 Fluorodeoxyglucose (FDG) i.v. Injection site: Left antecubital fossa HISTORY: 79-year-old man with prostate cancer diagnosed on 06/30/2021. 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 The study was interpreted on the [email or web address] workstation. The mean liver SUV (reported for software quality assurance specialist purposes) is 0.9.. The lower limit of normal for software quality assurance specialist is 1.5. The total scanned area was skull base to proximal thighs. Images of the body were obtained starting 50 minutes after injection of tracer. All reported SUVs are maximum SUVs, unless otherwise specified. COMPARISON: 10/22/2024, 2024, 09/15/2021. DESCRIPTORS OF LESION FDG AVIDITY: [...] FDG-PET/CT IMAGING DATE OF STUDY: 10/23/2024 SCANNER: [facility] [employer] (NV1). This is a high-resolution scanner, which can result in higher SUVs (and even detection of previously unrecognized small lesions) compared to older scanners. RADIOPHARMACEUTICAL: 15.8 mCi F-18 Fluorodeoxyglucose (FDG) i.v. Injection site: Left antecubital fossa HISTORY: 79-year-old man with prostate cancer diagnosed on 06/30/2021. 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 The study was interpreted on the [email or web address] workstation. The mean liver SUV (reported for software quality assurance specialist purposes) is 0.9.. The lower limit of normal for software quality assurance specialist is 1.5. The total scanned area was [...] it. Electronically signed by: Mendoza Quinn M.D. [facility] PET PROCEDURES Final Result * eGFR (10/23/2024 [...] MD LAB BLOOD ORDERABLES Carina gardner Result [facility] [place] [address] * (ABNORMAL) Differential, auto (10/23/2024 12:31 AM CDT) Neutrophil abs 6.52(H) 1.50 - 6.50 K/cumm Imm gran abs 0.16(H) 0.00 - 0.10 K/cumm [facility] Lymphocyte abs 0.98 0.80 - 3.30 K/cumm [facility] Monocyte abs 0.69 0.20 - 0.80 K/cumm [facility] Eosinophil abs 0.20 0.00 - 0.50 K/cumm [facility] Basophil abs 0.10 0.00 - 0.10 K/cumm [facility] Neutrophil pct 75.4 % [facility] Comment: Interpretive Data Percent cell count reference ranges are not reported, since discordance with absolute values may lead to misinterpretation of CBC data. Current Interpretive Data was last revised on 2017. Imm gran pct 1.8 % [facility] Comment: Interpretive Data Percent cell count reference ranges are not reported, since discordance with absolute values may lead to misinterpretation of CBC data. Current Interpretive Data was last revised on 2017. Lymphocyte pct 11.3 % [facility] Comment: Interpretive Data Percent cell count reference ranges are not reported, since discordance with absolute values may lead to misinterpretation of CBC data. Current Interpretive Data was last revised on 2017. Monocyte pct 8.0 % [facility] Comment: Interpretive Data Percent cell count reference ranges are not reported, since discordance with absolute values may lead to misinterpretation of CBC data. Current Interpretive Data was last revised on 2017. Eosinophil pct 2.3 % [facility] Comment: Interpretive Data Percent cell count reference ranges are not reported, since discordance with absolute values may lead to misinterpretation of CBC data. Current Interpretive Data was last revised on 2017. Basophil pct 1.2 % [facility] Comment: Interpretive Data Percent cell count reference ranges are not reported, since discordance with absolute values may lead to misinterpretation of CBC data. Current Interpretive Data was last revised on 2017. Blood 10/23/2024 12:3 1 AM CDT 10/23/2024 12:40 AM CDT Young Thapa MD LAB BLOOD ORDERABLES Carina gardner Result [facility] [facility] [place] [address] * (ABNORMAL) CBC with auto differential (10/23/2024 12:31 AM CDT) WBC 8.65 3.80 - 9.90 K/cumm Hgb 8.7(L) 13.0 - 17.5 g/dL [facility] Hct 27.9(L) 38.9 - 50.3 % [facility] Plt 516(H) 150 - 400 K/cumm [facility] MPV 8.6(L) 9.1 - 12.3 fL [facility] RBC 3.48(L) 4.30 - 5.80 M/cumm [facility] MCV 80.2(L) 81.3 - 96.4 fL [facility] MCH 25.0(L) 27.1 - 33.3 pg [facility] MCHC 31.2(L) 32.3 - 35.7 g/dL [facility] RDW CV 21.4(H) 11.1 - 14.9 % [facility] RDW SD 60.9(H) 35.7 - 48.1 fL [facility] NRBC abs 0.07(H) 0.00 - 0.01 K/cumm [facility] Blood 10/23/2024 12:3 1 AM CDT 10/23/2024 12:40 AM CDT Young Thapa MD LAB BLOOD ORDERABLES Carina l Result Performing Organization Address [facility] de Phone Number [facility] [place] [address] * Type and screen (10/23/2024 12:31 AM CDT) ABO Rh O Positive Wilfred, indirect Negative [facility] Blood 10/23/2024 12:3 1 AM CDT 10/23/2024 12:38 AM CDT Narrative [facility] - 10/23/2024 2:18 AM CDT Has the patient had Daratumumab or Isatuximab in the past 6 months?->Unknown Result [facility] Young Thpaa MD LAB BLOOD BANK TEST ORDER YANET Final Result Performing Organization Address [facility] de Phone Number [facility] [place] [address] * Uric acid (10/23/2024 12:31 AM CDT) Uric acid 3.8 3.0 - 8.0 mg/dL Blood 10/23/2024 12:3 1 AM CDT 10/23/2024 12:40 AM CDT Narrative [facility] - 10/23/2024 1:13 AM CDT Sunday and only. Morning draw. . Young Thapa MD LAB BLOOD ORDERABLES Carina l Result Performing Organization Address City/[facility] Co de Phone Number [facility] [place] [address] * (ABNORMAL) Phosphorus (10/23/2024 12:31 AM CDT) [facility] Phosphorus, pl 1.6(L) 2.3 - 4.5 mg/dL Blood 10/23/2024 12:3 1 AM CDT 10/23/2024 12:40 AM CDT Young Thapa MD LAB BLOOD ORDERABLES Carina l Result Performing Organization Address [facility] Co de Phone Number [facility] [place] [address] * (ABNORMAL) Lactate dehydrogenase (LD) (10/23/2024 12:31 AM CDT) [facility] Lactate dehydrogenase (LDH) 400(H) 100 - 250 Units/L Blood 10/23/2024 12:3 1 AM CDT 10/23/2024 12:40 AM CDT Narrative [facility] - 10/23/2024 1:13 AM CDT Sunday and only. Morning draw. Young Thapa MD LAB BLOOD ORDERABLES Carina l Result Performing Organization Address [facility] Co de Phone Number [facility] [place] [address] * (ABNORMAL) Comprehensive metabolic panel (10/23/2024 12:31 AM CDT) [facility] Sodium 143 135 - 145 mmol/L Potassium, pl 4.1 3.3 - 4.9 mmol/L [facility] Chloride 105 97 - 110 mmol/L [facility] CO2 23 22 - 32 mmol/L [facility] Anion gap 15 2 - 15 mmol/L [facility] BUN 12 6 - 25 mg/dL [facility] Creatinine 0.82 0.80 - 1.30 mg/dL [facility] Glucose 146 70 - 199 mg/dL [facility] Comment: Interpretive Data Fasting glucose [...] 2022. Calcium 6.8(L) 8.5 - 10.3 mg/dL [facility] Bilirubin, total 0.2 0.1 - 1.2 mg/dL [facility] Protein, pl 6.6 6.5 - 8.5 g/dL [facility] Albumin 3.3(L) 3.5 - 5.0 g/dL [facility] Alk phos 456(H) 40 - 130 Units/L [facility] ALT 19 7 - 55 Units/L [facility] AST 57(H) 10 - 50 Units/L [facility] Blood 10/23/2024 12:3 1 AM CDT 10/23/2024 12:40 AM CDT us Young Thapa MD LAB BLOOD ORDERABLES Carina l Result [facility] [place] [address] * Flow Leukemia/Lymphoma Tissue (10/22/2024 10:53 AM CDT) Morales Stain Test Completed Leukemia/Lymp addi Result See separate Surgical Pathology report. [facility] Tissue 10/22/2024 10:5 3 AM CDT 10/22/2024 2:22 PM CDT us Devon Carlin MD LAB PATHOLOGY ORDERABLES Final Result [facility] [place] [address] * Surgical pathology (10/22/2024 10:51 AM CDT) Tissue (Mass/Tumor/Lesion ) 10/22/2024 10:51 AM CDT Comment:US guided LT pelvic/ iliac mass core biopsy History of metastatic prostate cancer Tissue specimen (specimen) (Mass/Tumor/Lesion ) 10/22/2024 10:53 AM CDT Comment:US guided LT pelvic/ iliac mass core biopsy History of metastatic prostate cancer Rule out lymphoma Narrative PATHOLOGY [facility] - 10/27/2024 11:23 AM CDT EPIC results best viewed via link to PDF [facility] [place] [address] Note to Patients: This report may contain [...] Gender: M : 1945 (Age: 79) Address: [address] [place] [address] Hospital #: [id number] Taken:10/22/2024 Received:10/22/2024 Reported: 10/27/2024 Patient Type: [facility] Inpatient Service: Oncology Location: [facility] [address] Physician(s): Leodan Jean-Baptiste M.D. Saw Ga M.D. Diagnosis: A. Pelvic/iliac mass, left, core [...] flow cytometry specimen was examined for internal software quality assurance specialist purposes. (ar) Amado Godoy M.D. History: The patient is a 79-year-old man with history of [place] 10 prostate cancer sp multiple hormonal therapies [...] Surgical Pathology and Flow Cytometry Departments at [facility] as part of an ongoing quality control director program and in compliance with federally mandated [...] Surgical Pathology and Flow Cytometry Departments of [facility]. It has not been cleared or approved by the U. S. Food and Drug Administration. IMAGES AND SCANNED DOCUMENTS, IF INCLUDED, ONLY VIEWABLE IN PDF VERSION OF REPORT Tammie CONTI LAB PATHOLOGY ORDERABLES Final Result PATHOLOGY [facility] 3rd Floor [place], [place] [phone] * US Guided Biopsy Abdomen Retroperitoneal (10/22/2024 [...] formalin and RPMI and submitted to the business intelligence reporting analyst service for delivery to Surgical Pathology. No [...] formalin and RPMI and submitted to the business intelligence reporting analyst service for delivery to Surgical Pathology. No [...] it. Electronically signed by: Leodan Jean-Baptiste M.D. [facility] US PROCEDURES Final R esult * eGFR [...] MD LAB BLOOD ORDERABLES Carina kendra Result [facility] [place] [address] * (ABNORMAL) Differential, auto (10/22/2024 12:57 AM CDT) Pathologist [facility] Neutrophil abs 5.62 1.50 - 6.50 K/cumm Imm gran abs 0.21(H) 0.00 - 0.10 K/cumm [facility] Lymphocyte abs 1.76 0.80 - 3.30 K/cumm [facility] Monocyte abs 0.66 0.20 - 0.80 K/cumm [facility] Eosinophil abs 0.16 0.00 - 0.50 K/cumm [facility] Basophil abs 0.06 0.00 - 0.10 K/cumm [facility] Neutrophil pct 66.3 % [facility] Comment: Interpretive Data Percent cell count reference ranges are not reported, since discordance with absolute values may lead to misinterpretation of CBC data. Current Interpretive Data was last revised on 2017. Imm gran pct 2.5 % [facility] Comment: Interpretive Data Percent cell count reference ranges are not reported, since discordance with absolute values may lead to misinterpretation of CBC data. Current Interpretive Data was last revised on 2017. Lymphocyte pct 20.8 % [facility] Comment: Interpretive Data Percent cell count reference ranges are not reported, since discordance with absolute values may lead to misinterpretation of CBC data. Current Interpretive Data was last revised on 2017. Monocyte pct 7.8 % [facility] Comment: Interpretive Data Percent cell count reference ranges are not reported, since discordance with absolute values may lead to misinterpretation of CBC data. Current Interpretive Data was last revised on 2017. Eosinophil pct 1.9 % [facility] Comment: Interpretive Data Percent cell count reference ranges are not reported, since discordance with absolute values may lead to misinterpretation of CBC data. Current Interpretive Data was last revised on 2017. Basophil pct 0.7 % [facility] Comment: Interpretive Data Percent cell count reference ranges are not reported, since discordance with absolute values may lead to misinterpretation of CBC data. Current Interpretive Data was last revised on 2017. Blood 10/22/2024 12:5 7 AM CDT 10/22/2024 1:11 AM CDT us Young Thapa MD LAB BLOOD ORDERABLES Carina gardner Result [facility] [place] [address] * (ABNORMAL) CBC with auto differential (10/22/2024 12:57 AM CDT) WBC 8.47 3.80 - 9.90 K/cumm Hgb 8.5(L) 13.0 - 17.5 g/dL [facility] Hct 26.8(L) 38.9 - 50.3 % [facility] Plt 486(H) 150 - 400 K/cumm [facility] MPV 8.8(L) 9.1 - 12.3 fL [facility] RBC 3.30(L) 4.30 - 5.80 M/cumm [facility] MCV 81.2(L) 81.3 - 96.4 fL [facility] MCH 25.8(L) 27.1 - 33.3 pg [facility] MCHC 31.7(L) 32.3 - 35.7 g/dL [facility] RDW CV 20.7(H) 11.1 - 14.9 % [facility] RDW SD 60.2(H) 35.7 - 48.1 fL [facility] NRBC abs 0.12(H) 0.00 - 0.01 K/cumm [facility] Blood 10/22/2024 12:5 7 AM CDT 10/22/2024 1:11 AM CDT Young Thapa MD LAB BLOOD ORDERABLES Carina l Result Performing Organization Address City/[facility] Co de Phone Number [facility] [place] [address] * Protime-INR (10/22/2024 12:57 AM CDT) PT 12.3 9.7 - 13.0 sec INR 1.14 0.90 - 1.20 [facility] Comment: Interpretive data Oral anticoagulant therapeutic ranges: Venous thromboembolism prophylaxis or treatment: 2.0-3.0 CARDIOLOGY Standard range: 2.0-3.0 High-intensity range: 2.5-3.5 Refer to indication-specific guidelines for appropriate target ranges for prosthetic heart valve replacement. Current interpretive data was last revised on 2019. Blood 10/22/2024 12:5 7 AM CDT 10/22/2024 1:22 AM CDT Tammie CONTI LAB BLOOD ORDERABLES Carina l Result Performing Organization Address [facility] Co de Phone Number [facility] [place] [address] * (ABNORMAL) Phosphorus (10/22/2024 12:57 AM CDT) Phosphorus, pl 1.2(L) 2.3 - 4.5 mg/dL Blood 10/22/2024 12:5 7 AM CDT 10/22/2024 1:11 AM CDT Young Thapa MD LAB BLOOD ORDERABLES Carina l Result Performing Organization Address City/[facility] Co de Phone Number [facility] [place] [address] * Magnesium (10/22/2024 12:57 AM CDT) Pathologist [facility] Magnesium 2.2 1.4 - 2.5 mg/dL Blood 10/22/2024 12:5 7 AM CDT 10/22/2024 1:11 AM CDT us Young Thapa MD LAB BLOOD ORDERABLES Carina gardner Result [facility] Department [place] [address] * (ABNORMAL) Comprehensive metabolic panel (10/22/2024 12:57 AM CDT) Pathologist [facility] Sodium 143 135 - 145 mmol/L Potassium, pl 3.5 3.3 - 4.9 mmol/L [facility] Chloride 104 97 - 110 mmol/L [facility] CO2 24 22 - 32 mmol/L [facility] Anion gap 15 2 - 15 mmol/L [facility] BUN 13 6 - 25 mg/dL [facility] Creatinine 0.93 0.80 - 1.30 mg/dL [facility] Glucose 89 70 - 199 mg/dL [facility] Comment: Interpretive Data Fasting glucose [...] 2022. Calcium 7.3(L) 8.5 - 10.3 mg/dL [facility] Bilirubin, total 0.2 0.1 - 1.2 mg/dL [facility] Protein, pl 6.7 6.5 - 8.5 g/dL [facility] Albumin 3.1(L) 3.5 - 5.0 g/dL [facility] Alk phos 434(H) 40 - 130 Units/L [facility] ALT 21 7 - 55 Units/L [facility] AST 53(H) 10 - 50 Units/L [facility] Blood 10/22/2024 12:5 7 AM CDT 10/22/2024 1:11 AM CDT Young Thapa MD LAB BLOOD ORDERABLES Carina l Result [facility] [place] [address] * Transfuse RBC (10/21/2024 10:12 PM CDT) Blood Tammie CONTI BLOOD TRANSFUSION ORDERAB LES Final Result Performing Organization Address [facility]/ZIP Co de Phone Number [facility] [place] [address] * Type and screen (10/21/2024 12:52 PM CDT) ABO Rh O Positive Wilfred, indirect Negative [facility] Blood 10/21/2024 12:5 2 PM CDT 10/21/2024 1:05 PM CDT Narrative [facility] - 10/21/2024 2:01 PM CDT Has the patient had Daratumumab or Isatuximab in the past 6 months?->Unknown Tammie CONTI LAB BLOOD BANK TEST ORDER YANET Final Result Performing Organization Address City/[facility]/[place] [address] * Prepare RBC: 1 Units (10/21/2024 11:32 AM CDT) Product code [id number] Unit Number [id number] M [facility] Product Blood Type OPOS [facility] Dispense Status PRESUMED TRANSFUSED [facility] Blood 10/21/2024 11:3 2 AM CDT 10/21/2024 11:33 AM CDT [facility] - 10/22/2024 6:01 AM CDT Specify Procedure:->Lymph node biopsy on 10/22 Are special requirements needed? (All products are leukoreduced and CMV- safe)- >No Date required:-[id number] LRRBC # of [id number] Reasons:-Pre-op Hgb <8 g/dL} Tammie CONTI BLOOD BANK PRODUCT ORDERA BLES Final Result [facility] [place] [address] * TRANSTHORACIC ECHO (TTE) COMPLETE W DOPPLER/CF W CONTRAST (10/21/2024 8:53 AM CDT) Anatomical Region Laterality Modality Ultrasound 10/21/2024 7:34 AM CDT Narrative 10/21/2024 10:28 AM CDT [facility] [place] [address] Transthoracic Echocardiographic Report Patient Name: JARRELL STEEN : 1945 (79y 5m) Gender: M Study Date: 10/21/2024 07:34:01 Ht(Inch): 66 Wt(Lb): 149.91 BSA: 1.78 Senior Accounting Clerk: Kodi Medina RDCS Location: Order Provider: YOUNG THAPA Heart Rate: 81 [...] LA Length 4C 5.67 cm AI Decel Davis 3.38 m/s2 LA Length 2C 4.36 cm [...] Procedure Note Devon Frank MD - 10/21/2024 [facility] [address] Transthoracic Echocardiographic Report Patient Name: JARRELL STEEN : 1945 (79y 5m) Gender: M Study Date: 10/21/2024 07:34:01 Ht(Inch): 66 Wt(Lb): 149.91 BSA: 1.78 Senior Accounting Clerk: Kodi Medina RDCS Location: 10-29 Order Provider:YOUNG THAPA Heart Rate: 81 BMI: [...] [ -25.0 - -18.0 ] AI Decel [id number] sec LA Length 4C 5.67 cm AI Decel [place]3.38 m/s2 LA Length 2C 4.36 cm AI ART115.18 msec LA Volume BP 67.30 ml MV [...] [ 1.71 - 5.00 ] MV Decel Zvng914.39 msec [ 104.00 - 258.00 ] RA [...] Result * eGFR (10/21/2024 5:43 AM CDT) Pathologist [facility] eGFR 77 >=60 mL/min/1. 73 m2 Comment: [...] MD LAB BLOOD ORDERABLES Carina gardner Result [facility] [place] [address] * Differential, auto (10/21/2024 5:43 AM CDT) [facility] Neutrophil abs 5.9 1.5 - 6.5 K/cumm Imm gran abs 0.1 0.0 - 0.1 K/cumm [facility] Lymphocyte abs 1.6 0.8 - 3.3 K/cumm [facility] Monocyte abs 0.7 0.2 - 0.8 K/cumm [facility] Eosinophil abs 0.1 0.0 - 0.5 K/cumm [facility] Basophil abs 0.1 0.0 - 0.1 K/cumm [facility] Neutrophil pct 68.8 % [facility] Comment: Interpretive Data Percent cell count reference ranges are not reported, since discordance with absolute values may lead to misinterpretation of CBC data. Current Interpretive Data was last revised on 2017. Imm gran pct 1.4 % [facility] Comment: Interpretive Data Percent cell count reference ranges are not reported, since discordance with absolute values may lead to misinterpretation of CBC data. Current Interpretive Data was last revised on 2017. Lymphocyte pct 19.1 % [facility] Comment: Interpretive Data Percent cell count reference ranges are not reported, since discordance with absolute values may lead to misinterpretation of CBC data. Current Interpretive Data was last revised on 2017. Monocyte pct 8.5 % [facility] Comment: Interpretive Data Percent cell count reference ranges are not reported, since discordance with absolute values may lead to misinterpretation of CBC data. Current Interpretive Data was last revised on 2017. Eosinophil pct 1.4 % [facility] Comment: Interpretive Data Percent cell count reference ranges are not reported, since discordance with absolute values may lead to misinterpretation of CBC data. Current Interpretive Data was last revised on 2017. Basophil pct 0.8 % [facility] Comment: Interpretive Data Percent cell count reference ranges are not reported, since discordance with absolute values may lead to misinterpretation of CBC data. Current Interpretive Data was last revised on 2017. Blood 10/21/2024 5:43 AM CDT 10/21/2024 5:53 AM CDT Young Thapa MD LAB BLOOD ORDERABLES Carina gardner Result [facility] Department [place] [address] * (ABNORMAL) CBC with auto differential (10/21/2024 5:43 AM CDT) WBC 8.5 3.8 - 9.9 K/cumm Hgb 7.8(L) 13.0 - 17.5 g/dL [facility] Hct 25.1(L) 38.9 - 50.3 % [facility] Plt 572(H) 150 - 400 K/cumm [facility] MPV 8.5(L) 9.1 - 12.3 fL [facility] RBC 3.15(L) 4.30 - 5.80 M/cumm [facility] MCV 79.7(L) 81.3 - 96.4 fL [facility] MCH 24.8(L) 27.1 - 33.3 pg [facility] MCHC 31.1(L) 32.3 - 35.7 g/dL [facility] RDW CV 21.6(H) 11.1 - 14.9 % [facility] RDW SD 61.1(H) 35.7 - 48.1 fL [facility] NRBC abs 0.09(H) 0.00 - 0.01 K/cumm [facility] Blood 10/21/2024 5:43 AM CDT 10/21/2024 5:53 AM CDT Young Thapa MD LAB BLOOD ORDERABLES Carina l Result [facility] [address] [place] [address] * (ABNORMAL) Phosphorus (10/21/2024 5:43 AM CDT) Phosphorus, pl 1.3(L) 2.3 - 4.5 mg/dL Blood 10/21/2024 5:43 AM CDT 10/21/2024 5:53 AM CDT Young Thapa MD LAB BLOOD ORDERABLES Carina l Result [facility] [place] [address] * Magnesium (10/21/2024 5:43 AM CDT) Magnesium 2.3 1.4 - 2.5 mg/dL Blood 10/21/2024 5:43 AM CDT 10/21/2024 5:53 AM CDT us Young Thapa MD LAB BLOOD ORDERABLES Carina gardner Result [facility] [place] [address] * (ABNORMAL) Comprehensive metabolic panel (10/21/2024 5:43 AM CDT) Sodium 142 135 - 145 mmol/L Potassium, pl 3.8 3.3 - 4.9 mmol/L [facility] Chloride 102 97 - 110 mmol/L [facility] CO2 26 22 - 32 mmol/L [facility] Anion gap 14 2 - 15 mmol/L [facility] BUN 16 6 - 25 mg/dL [facility] Creatinine 0.99 0.80 - 1.30 mg/dL [facility] Glucose 91 70 - 199 mg/dL [facility] Comment: Interpretive Data Fasting glucose [...] 2022. Calcium 7.5(L) 8.5 - 10.3 mg/dL [facility] Bilirubin, total 0.4 0.1 - 1.2 mg/dL [facility] Protein, pl 6.7 6.5 - 8.5 g/dL [facility] Albumin 3.0(L) 3.5 - 5.0 g/dL [facility] Alk phos 423(H) 40 - 130 Units/L [facility] ALT 18 7 - 55 Units/L [facility] AST 34 10 - 50 Units/L [facility] Blood 10/21/2024 5:43 AM CDT 10/21/2024 5:53 AM CDT us Young Thapa MD LAB BLOOD ORDERABLES Carina l Result Performing Organization Address [facility] Co de Phone Number [facility] [place] [address] * POCT glucose (10/20/2024 6:35 PM CDT) Glucose, POC 99 70 - 199 mg/dL Blood 10/20/2024 6:35 PM CDT 10/20/2024 6:35 PM CDT us Devon Carlin MD LAB POCT ORDERABLES - DE VICE Final Result Performing Organization Address [facility] Co de Phone Number [facility] [place] [address] * POCT glucose (10/20/2024 2:41 PM CDT) Glucose, POC 106 70 - 199 mg/dL Blood 10/20/2024 2:41 PM CDT 10/20/2024 2:41 PM CDT us Devon Carlin MD LAB POCT ORDERABLES - DE VICE Final Result Performing Organization Address [facility] Co de Phone Number [facility] [place] [address] * POCT glucose (10/20/2024 10:39 AM CDT) Glucose, POC 117 70 - 199 mg/dL Blood 10/20/2024 10:3 9 AM CDT 10/20/2024 10:39 AM CDT us Devon Carlin MD LAB POCT ORDERABLES - DE VICE Final Result Performing Organization Address [facility] Co de Phone Number [facility] [place] [address] * US Vein Duplex Lower Extremity Bilateral Complete (10/20/2024 8:43 AM CDT) Anatomical Region Laterality Modality Vascular Bilateral Ultrasound 10/20/2024 7:38 AM CDT Narrative 10/20/2024 9:33 AM CDT [facility] - Department of Vascular Surgery, Vascular Laboratory [address] [place] [address] Lower Extremity Venous Ultrasound Report Patient Name: JARRELL STEEN : 1945 (79y 5m) Study Date: 10/20/2024 7:38:15 AM Gender: M Tech: Location: 2181 Ref Provider: MICHELLE HENDERSON Quality: Adequate Order Provider: MICHELLE HEDNERSON PROCEDURES: Vascular Report: Venous Duplex imaging was performed bilaterally in the lower extremities. The common femoral, femoral, popliteal, posterior tibial, peroneal veins were evaluated for patency, spontaneity and phasicity with Doppler, compression and augmentation maneuvers. Great saphenous vein proximal at the junction was evaluated with compression maneuvers. INDICATIONS: Swelling lower extremity, bilateral. FINDINGS: Performing Senior Accounting Clerk: Torrie Moody RVT. Bilateral: Venous Doppler signals [...] above. Electronically Signed By: Patrick Woods MD [facility] [phone] 10/20/2024 8:52:38 AM CDT Procedure Note Patrick Woods MD - 10/20/2024 [facility] [employer] [facility] - Department of Vascular Surgery,Vascular Laboratory [address] [place] [address] Lower Extremity Venous Ultrasound Report Patient Name: JARRELL STEEN : 1945 (79y 5m) Study Date: 10/20/2024 7:38:15 AM Gender: M Tech: Location: 2181 [facility] Provider: MICHELLE HENDERSON Quality: Adequate Order Provider: MICHELLE HENDERSON PROCEDURES: Vascular Report: Venous Duplex imaging was performed bilaterally in the lower extremities.The common femoral, femoral, popliteal, posterior tibial, peroneal veins wereevaluated for patency, spontaneity and phasicity with Doppler, compression and augmentationmaneuvers. Great saphenous vein proximal at the junction was evaluated with compressionmaneuvers. INDICATIONS: Swelling lower extremity, bilateral. FINDINGS: Performing Senior Accounting Clerk: Torrie Moody RVT. Bilateral: Venous Doppler signals [...] above. Electronically Signed By: Patrick Woods MD [facility] [phone] 10/20/2024 8:52:38 AM CDT us Michelle Henderson NP IMG US PROCEDURES Final Result * POCT glucose (10/20/2024 6:43 AM CDT) Glucose, POC 96 70 - 199 mg/dL Blood 10/20/2024 6:43 AM CDT 10/20/2024 6:43 AM CDT us Devon Carlin MD LAB POCT ORDERABLES - DE VICE Final Result [facility] [place] [address] * CT Pelvis WO Contrast (10/20/2024 4:25 [...] it. Electronically signed by: Mariela Wiggins MD Narrative 10/20/2024 10:12 AM CDT EXAMINATION: [...] it. Electronically signed by: Mariela Wiggins MD Young Thapa MD IMG CT PROCEDURES Final [...] Sophia Sesay M.D. us Young Thapa MD IMG CT PROCEDURES Final R esult * POCT glucose (10/20/2024 2:23 AM CDT) Pathologist [facility] Glucose, POC 106 70 - 199 mg/dL Blood 10/20/2024 2:23 AM CDT 10/20/2024 2:23 AM CDT us Devon Carlin MD LAB POCT ORDERABLES - DE VICE Final Result Performing Organization Address City/[facility]/ZIP Co de Phone Number [facility] [place] [address] * Troponin I high-sensitivity 4-hour (10/19/2024 9:22 PM CDT) [facility] Trop I hs 16 <=35 ng/L Comment: Interpretive Data For further hscTnI resources including the diagnostic algorithm and an aid in interpretation, copy and paste this link: https://bjhlab.testcatalog.org/show/hsTrop-1 Current Interpretive Data last revised 2020. Trop I hs delta 0 ng/L [facility] Trop I hs interp Insignificant [facility] Blood 10/19/2024 9:22 PM CDT 10/19/2024 9:37 PM CDT Aide Gallagher MD LAB BLOOD ORDERABLES Final Result Performing Organization Address City/[facility]/ZIP Co de Phone Number [facility] [place] [address] * Urinalysis reflex to microscopic (10/19/2024 8:24 PM CDT) Pathologist [facility] Color, ur Straw Yellow Clarity, ur Clear Clear [facility] Specific gravity, ur 1.016 1.003 - 1.030 [facility] pH, urine 7.0 [facility] Comment: Interpretive Data U rine pH is affected by diet, medications, systemic acid-base disturbances, and renal tubular function. pH may affect urinary stone formation. For example, urine pH below 6.0 may help reduce the tendency for calcium phosphate stones and pH greater than 6.0 may reduce the tendency for uric acid stone formation. Source: [facility] Current Interpretive Data was last revised on 2017 Protein, ur ql Trace Negative [facility] Glucose, ur ql Negative Negative [facility] Ketones, ur Negative Negative [facility] Bilirubin, ur Negative Negative [facility] Blood, ur Negative Negative [facility] Urobilinogen, ur <2.0 <2.0 mg/dL [facility] Nitrite, ur Negative Negative [facility] Leukocyte esterase, ur Negative Negative [facility] UA reflex comment Reflex conditions for microscopic UA not met. [facility] Urine 10/19/2024 8:24 PM CDT 10/19/2024 8:29 PM CDT us Sterling Mejias MD PhD LAB URINE ORDERABLE S Final Result [facility] [place] [address] * POCT glucose (10/19/2024 7:32 PM CDT) Glucose, POC 113 70 - 199 mg/dL Blood 10/19/2024 7:32 PM CDT 10/19/2024 7:32 PM CDT us Notinfile Unknown LAB POCT ORDERABLES - DEVICE F inal Result [facility] [place] [address] * Troponin I high-sensitivity 2-hour (10/19/2024 6:53 PM CDT) Trop I hs 19 <=35 ng/L Comment: Interpretive Data For further hscTnI resources including the diagnostic algorithm and an aid in interpretation, copy and paste this link: https://bjhlab.testcatalog.org/show/hsTrop-1 Current Interpretive Data last revised 2020. Trop I hs delta 3 ng/L [facility] Trop I hs interp Insignificant [facility] Blood 10/19/2024 6:53 PM CDT 10/19/2024 7:19 PM CDT us Aide Gallagher MD LAB BLOOD ORDERABLES Final Result [facility] [place] [address] * XR Chest 1 View (10/19/2024 6:51 [...] and agrees with it. Electronically signed by: Jsoe Cruz Ching MD, PHD us Domi Hernandez MD IMG XR PROCEDURES Fin al Result * Troponin I high-sensitivity series (baseline, 2hr, 4hr, 6hr) (10/19/2024 4:55 PM CDT) Trop I hs 16 <=35 ng/L Comment: Interpretive Data For further hscTnI resources including the diagnostic algorithm and an aid in interpretation, copy and paste this link: https://bjhlab.testcatalog.org/show/hsTrop-1 Current Interpretive Data last revised 2020. Blood 10/19/2024 4:55 PM CDT 10/19/2024 5:03 PM CDT us Sterling Mejias MD PhD LAB BLOOD ORDERABLE S Final Result [facility] [place] [address] * eGFR (10/19/2024 4:55 PM CDT) eGFR [...] PhD LAB BLOOD ORDERABLE S Final Result [facility] [place] [address] * (ABNORMAL) Differential, auto (10/19/2024 4:55 PM CDT) Neutrophil abs 6.6(H) 1.5 - 6.5 K/cumm Imm gran abs 0.3(H) 0.0 - 0.1 K/cumm [facility] Lymphocyte abs 1.4 0.8 - 3.3 K/cumm [facility] Monocyte abs 0.9(H) 0.2 - 0.8 K/cumm [facility] Eosinophil abs 0.1 0.0 - 0.5 K/cumm [facility] Basophil abs 0.1 0.0 - 0.1 K/cumm [facility] Neutrophil pct 70.0 % [facility] Comment: Interpretive Data Percent cell count reference ranges are not reported, since discordance with absolute values may lead to misinterpretation of CBC data. Current Interpretive Data was last revised on 2017. Imm gran pct 3.1 % [facility] Comment: Interpretive Data Percent cell count reference ranges are not reported, since discordance with absolute values may lead to misinterpretation of CBC data. Current Interpretive Data was last revised on 2017. Lymphocyte pct 14.9 % [facility] Comment: Interpretive Data Percent cell count reference ranges are not reported, since discordance with absolute values may lead to misinterpretation of CBC data. Current Interpretive Data was last revised on 2017. Monocyte pct 9.7 % [facility] Comment: Interpretive Data Percent cell count reference ranges are not reported, since discordance with absolute values may lead to misinterpretation of CBC data. Current Interpretive Data was last revised on 2017. Eosinophil pct 1.5 % [facility] Comment: Interpretive Data Percent cell count reference ranges are not reported, since discordance with absolute values may lead to misinterpretation of CBC data. Current Interpretive Data was last revised on 2017. Basophil pct 0.8 % [facility] Comment: Interpretive Data Percent cell count reference ranges are not reported, since discordance with absolute values may lead to misinterpretation of CBC data. Current Interpretive Data was last revised on 2017. Blood 10/19/2024 4:55 PM CDT 10/19/2024 5:03 PM CDT us Sterling Mejias MD PhD LAB BLOOD ORDERABLE S Final Result [facility] [place] [address] * (ABNORMAL) Pro B-type natriuretic peptide (10/19/2024 [...] Hernandez MD LAB BLOOD ORDERABLES Final Result [facility] [place] [address] * (ABNORMAL) CBC with auto differential (10/19/2024 4:55 PM CDT) WBC 9.5 3.8 - 9.9 K/cumm Hgb 8.6(L) 13.0 - 17.5 g/dL [facility] Hct 27.9(L) 38.9 - 50.3 % [facility] Plt 606(H) 150 - 400 K/cumm [facility] MPV 8.6(L) 9.1 - 12.3 fL [facility] RBC 3.43(L) 4.30 - 5.80 M/cumm [facility] MCV 81.3 81.3 - 96.4 fL [facility] MCH 25.1(L) 27.1 - 33.3 pg [facility] MCHC 30.8(L) 32.3 - 35.7 g/dL [facility] RDW CV 21.2(H) 11.1 - 14.9 % [facility] RDW SD 61.5(H) 35.7 - 48.1 fL [facility] NRBC abs 0.15(H) 0.00 - 0.01 K/cumm [facility] Blood Venous blood specimen / Unknown 10/19/2024 4:55 PM CDT 10/19/2024 5:03 PM CDT us Sterling Mejias MD PhD LAB BLOOD ORDERABLE S Final Result [facility] [place] [address] * Lipase (10/19/2024 4:55 PM CDT) [facility] Lipase 35 10 - 99 Units/L Blood Venous blood specimen / Unknown 10/19/2024 4:55 PM CDT 10/19/2024 5:03 PM CDT Sterlnig Mejias MD PhD LAB BLOOD ORDERABLE S Final Result Performing Organization Address [facility] [place] [address] * Hemoglobin A1c (10/19/2024 4:55 PM CDT) [facility] Hgb A1C 5.5 4.0 - 5.6 % Estimated Average Glucose 111 mg/dL [facility] Comment: The ADA recommends reporting an estimated [...] ORDERABLES Carina l Result Performing Organization Address City/[facility]/ZIP Co de Phone Number [facility] [place] [address] * (ABNORMAL) Comprehensive metabolic panel (10/19/2024 4:55 PM CDT) [facility] Sodium 137 135 - 145 mmol/L Potassium, pl 3.6 3.3 - 4.9 mmol/L [facility] Chloride 98 97 - 110 mmol/L [facility] CO2 25 22 - 32 mmol/L [facility] Anion gap 14 2 - 15 mmol/L [facility] BUN 21 6 - 25 mg/dL [facility] Creatinine 1.17 0.80 - 1.30 mg/dL [facility] Glucose 122 70 - 199 mg/dL [facility] Comment: Interpretive Data Fasting glucose [...] 2022. Calcium 8.1(L) 8.5 - 10.3 mg/dL [facility] Bilirubin, total 0.3 0.1 - 1.2 mg/dL [facility] Protein, pl 7.1 6.5 - 8.5 g/dL [facility] Albumin 3.3(L) 3.5 - 5.0 g/dL [facility] Alk phos 480(H) 40 - 130 Units/L [facility] ALT 26 7 - 55 Units/L [facility] AST 37 10 - 50 Units/L [facility] Blood 10/19/2024 4:55 PM CDT 10/19/2024 5:03 PM CDT us Sterling Mejias MD PhD LAB BLOOD ORDERABLE S Final Result [facility] Department [place] [address] * POCT glucose (10/19/2024 4:53 PM CDT) [facility] Glucose, POC 129 70 - 199 mg/dL Blood 10/19/2024 4:53 PM CDT 10/19/2024 4:53 PM CDT us Notinfile Unknown LAB POCT ORDERABLES - DEVICE F inal Result [facility] [place] [address] * ECG 12-LEAD (10/19/2024 3:13 PM CDT) Narrative [facility] - 10/19/2024 3:13 PM CDT Jhonny Solomon [...] the ED Jhonny Solomon MD 10/19/24 1514 us Sterling Mejias MD PhD ECG ORDERABLES Fin al Result [facility] * eGFR (10/16/2024 9:09 AM CDT) [...] ORDERABLES Fin al Result Performing Organization Address City/[facility] Co de Phone Number NERY [facility] [place] [address] * (ABNORMAL) CBC with auto differential (10/16/2024 9:09 AM CDT) WBC 10.4(H) 3.8 - 9.9 K/cumm Comment:Testing performed by : [facility], [address] [place] [phone] Hgb 8.5(L) 13.0 - 17.5 g/dL [facility] Comment:Testing performed by : [facility], [address] [place] [phone] Hct 26.2(L) 38.9 - 50.3 % [facility] Comment:Testing performed by : [facility], [address] [place] [address] Plt 578(H) 150 - 400 K/cumm [facility] Comment:Testing performed by : [facility], [address] [place] [address] MPV 6.6(L) 6.8 - 10.4 fL [facility] Comment:Testing performed by : [facility], [address] [place] [address] RBC 3.34(L) 4.30 - 5.80 M/cumm [facility] Comment:Testing performed by : [facility], [address] [place] [address] MCV 78.3(L) 81.3 - 96.4 fL [facility] Comment:Testing performed by : [facility], [address] [place] [address] MCH 25.5(L) 27.1 - 33.3 pg [facility] Comment:Testing performed by : [facility], [address] [place] [address] MCHC 32.6 32.3 - 35.7 g/dL [facility] Comment:Testing performed by : [facility], [address] [place] [address] RDW CV 21.8(H) 11.1 - 14.9 % [facility] Comment:Testing performed by : [facility], [address] [place] [address] NRBC abs 0.10(H) 0.00 - 0.01 K/cumm [facility] Comment:Testing performed by : [facility], [address] [place] [address] Blood 10/16/2024 9:09 AM CDT 10/16/2024 9:11 AM CDT us Devon Carlin MD LAB BLOOD ORDERABLES Gee juliane Result - Final [facility] [place] [address] * Vitamin D 25 hydroxy (10/16/2024 9:09 AM CDT) Vitamin D 25-OH 64 30 - 80 ng/mL Blood 10/16/2024 9:09 AM CDT 10/16/2024 9:15 AM CDT us Devon Carlin MD LAB BLOOD ORDERABLES Fin al Result Performing Organization Address [facility] Co de Phone Number [facility] [place] [address] * (ABNORMAL) Manual Differential (10/16/2024 9:09 AM CDT) [facility] Cells Counted 200 Comment:Testing performed by : [facility], [address] [place] [phone] Neutrophil abs 8.6(H) 1.5 - 6.5 K/cumm [facility] Comment:Testing performed by : [facility], [address] [place] [phone] Lymphocyte abs 0.8 0.8 - 3.3 K/cumm [facility] Comment:Testing performed by : [facility], [address] [place] [phone] Monocyte abs 0.7 0.2 - 0.8 K/cumm [facility] Comment:Testing performed by : [facility], [address] [place] [phone] Eosinophil abs 0.1 0.0 - 0.5 K/cumm [facility] Comment:Testing performed by : [facility], [address] [place] [phone] Basophil abs 0.1 0.0 - 0.1 K/cumm [facility] Comment:Testing performed by : [facility], [address] [place] [phone] Neutrophil pct 83.0 % [facility] Comment: Interpretive Data Percent cell count reference ranges are not reported, since discordance with absolute values may lead to misinterpretation of CBC data. Current Interpretive Data was last revised on 2017. Testing performed by: [facility], [address] [place] [phone] Lymphocyte pct 8.0 % [facility] Comment: Interpretive Data Percent cell count reference ranges are not reported, since discordance with absolute values may lead to misinterpretation of CBC data. Current Interpretive Data was last revised on 2017. Testing performed by: [facility], [address] [place] [phone] Monocyte pct 7.0 % [facility] Comment: Interpretive Data Percent cell count reference ranges are not reported, since discordance with absolute values may lead to misinterpretation of CBC data. Current Interpretive Data was last revised on 2017. Testing performed by: [facility], [address] [place] [phone] Eosinophil pct 1.0 % [facility] Comment: Interpretive Data Percent cell count reference ranges are not reported, since discordance with absolute values may lead to misinterpretation of CBC data. Current Interpretive Data was last revised on 2017. Testing performed by: [facility], [address] [place] [phone] Basophil pct 1.0 % [facility] Comment: Interpretive Data Percent cell count reference ranges are not reported, since discordance with absolute values may lead to misinterpretation of CBC data. Current Interpretive Data was last revised on 2017. Testing performed by: [facility], [address] [place] [phone] Metamyelocyte pct 1.0(H) 0.0 - 0.0 % [facility] Comment:Testing performed by : [facility], [address] [place] [phone] Myelocyte pct 1.0(H) 0.0 - 0.0 % [facility] Comment:Testing performed by : [facility], [address] [place] [phone] RBC morphology NRBCs present(A ) [facility] Comment:Testing performed by : [facility], [address] [place], [place] [id number] Polychromasia 1+(A) [facility] Comment:Testing performed by : [facility], [address] [place], [place] [phone] Hypochromasia 1+(A) [facility] Comment:Testing performed by : [facility], [address] [place] [phone] Anisocytosis 1+(A) [facility] Comment:Testing performed by : [facility], [address] [place], [place] [phone] Microcytes 1+(A) [facility] Comment:Testing performed by : [facility], [address] [place], [place] [phone] Elliptocytes 1+(A) [facility] Comment:Testing performed by : [facility], [address] [place] [phone] Target cells 1+(A) [facility] Comment:Testing performed by : [facility], [address] [place] [phone] Platelet estimate Increased (A) [facility] Comment:Testing performed by : [facility], [address] [place], [place] [phone] Giant platelets Present(A ) [facility] Comment:Testing performed by : [facility], [address] [place] [phone] Blood 10/16/2024 9:09 AM CDT 10/16/2024 9:11 AM CDT us Devon Carlin MD LAB BLOOD ORDERABLES Fin al Result [facility] [place] [address] * (ABNORMAL) Protime-INR (10/16/2024 9:09 AM CDT) PT 13.8(H) 9.7 - 13.0 sec INR 1.27(H) 0.90 - 1.20 [facility] Comment: Interpretive data Oral anticoagulant therapeutic ranges: Venous thromboembolism prophylaxis or treatment: 2.0-3.0 CARDIOLOGY Standard range: 2.0-3.0 High-intensity range: 2.5-3.5 Refer to indication-specific guidelines for appropriate target ranges for prosthetic heart valve replacement. Current interpretive data was last revised on 2019. Blood 10/16/2024 9:09 AM CDT 10/16/2024 9:58 AM CDT Devon Carlin MD LAB BLOOD ORDERABLES Fin al Result Performing Organization Address [facility] de Phone Number [facility] [place] [address] * (ABNORMAL) PSA diagnostic (10/16/2024 9:09 AM [...] ORDERABLES Fin al Result Performing Organization Address [facility] de Phone Number [facility] [place] [address] * Phosphorus (10/16/2024 9:09 AM CDT) Phosphorus, pl 2.9 2.3 - 4.5 mg/dL Blood 10/16/2024 9:09 AM CDT 10/16/2024 9:15 AM CDT us Devon Carlin MD LAB BLOOD ORDERABLES Fin al Result [facility] [place] [address] * (ABNORMAL) Comprehensive metabolic panel (10/16/2024 9:09 AM CDT) Pathologist [facility] Sodium 138 135 - 145 mmol/L Potassium, pl 3.6 3.3 - 4.9 mmol/L [facility] Chloride 96(L) 97 - 110 mmol/L [facility] CO2 27 22 - 32 mmol/L [facility] Anion gap 15 2 - 15 mmol/L [facility] BUN 23 6 - 25 mg/dL [facility] Creatinine 1.12 0.80 - 1.30 mg/dL [facility] Glucose 149 70 - 199 mg/dL [facility] Comment: Interpretive Data Fasting glucose [...] 2022. Calcium 9.6 8.5 - 10.3 mg/dL [facility] Bilirubin, total 0.4 0.1 - 1.2 mg/dL [facility] Protein, pl 7.2 6.5 - 8.5 g/dL [facility] Albumin 3.4(L) 3.5 - 5.0 g/dL [facility] Alk phos 510(H) 40 - 130 Units/L [facility] ALT 50 7 - 55 Units/L [facility] AST 50 10 - 50 Units/L [facility] Blood 10/16/2024 9:09 AM CDT 10/16/2024 9:15 AM CDT us Devon Carlin MD LAB BLOOD ORDERABLES Fin al Result [facility] [place] [address] * PET/CT Prostate Cancer PSMA Skull to [...] EXAMINATION: PSMA-PET/CT DATE OF STUDY: 10/10/2024 SCANNER: The [employer] (SQ1). This is a high-resolution scanner, which [...] obtained. The study was interpreted on the [email or web address] workstation. The total scanned area was mid [...] EXAMINATION: PSMA-PET/CT DATE OF STUDY: 10/10/2024 SCANNER: [facility] [employer] (SQ1). This is a high-resolution scanner, which [...] obtained. The study was interpreted on the [email or web address] workstation. The total scanned area was mid [...] it. Electronically signed by: Jeyson Choudhary MD Devon Carlin MD IMG PET PROCEDURES Final Result * MRI Brain W WO Contrast (09/23/2024 6:45 PM SLITTING MACHINE OPERATOR HELPER) Anatomical Region Laterality Modality Head and Neck N/A Magnetic Resonan ce 09/24/2024 10:3 4 AM SLITTING MACHINE OPERATOR HELPER Impressions 09/24/2024 12:59 PM SLITTING MACHINE OPERATOR HELPER 1. Calvarial and skull base heterogenously enhancing [...] Juve Yi M.D. Narrative 09/24/2024 12:59 PM SLITTING MACHINE OPERATOR HELPER EXAMINATION: Magnetic resonance imaging (MRI) of the [...] signed by: Juve Yi M.D. [facility] MRI PROCEDURES Carian kendra Result * eGFR (09/18/2024 8:52 AM SLITTING MACHINE OPERATOR HELPER) eGFR 81 >=60 mL/min/1. 73 m2 Comment: [...] last reviewed 2021. Blood 09/18/2024 8:52 AM SLITTING MACHINE OPERATOR HELPER 09/18/2024 9:02 AM SLITTING MACHINE OPERATOR HELPER us Devon Carlin MD LAB BLOOD ORDERABLES Fin al Result [facility] [place] [address] * Differential, auto (09/18/2024 8:52 AM SLITTING MACHINE OPERATOR HELPER) Neutrophil abs 4.2 1.5 - 6.5 K/cumm Comment:Testing performed by : [facility], [address] [place] [phone] Lymphocyte abs 1.1 0.8 - 3.3 K/cumm [facility] Comment:Testing performed by : [facility], [address] [place] [phone] Monocyte abs 0.3 0.2 - 0.8 K/cumm [facility] Comment:Testing performed by : [facility], [address] [place] [phone] Eosinophil abs 0.0 0.0 - 0.5 K/cumm [facility] Comment:Testing performed by : [facility], [address] [place] [phone] Basophil abs 0.0 0.0 - 0.1 K/cumm [facility] Comment:Testing performed by : [facility], [address] [place] [phone] Neutrophil pct 74.2 % [facility] Comment: Interpretive Data Percent cell count reference ranges are not reported, since discordance with absolute values may lead to misinterpretation of CBC data. Current Interpretive Data was last revised on 2017. Testing performed by: [facility], [address] [place] [phone] Lymphocyte pct 19.7 % CERNER BJ Comment: Interpretive Data Percent cell count reference ranges are not reported, since discordance with absolute values may lead to misinterpretation of CBC data. Current Interpretive Data was last revised on 2017. Testing performed by: [facility], [address] [place] [phone] Monocyte pct 5.3 % CERNER BJ Comment: Interpretive Data Percent cell count reference ranges are not reported, since discordance with absolute values may lead to misinterpretation of CBC data. Current Interpretive Data was last revised on 2017. Testing performed by: [facility], [address] [place] [phone] Eosinophil pct 0.1 % CERNER BJ Comment: Interpretive Data Percent cell count reference ranges are not reported, since discordance with absolute values may lead to misinterpretation of CBC data. Current Interpretive Data was last revised on 2017. Testing performed by: [facility], [address] [place] [phone] Basophil pct 0.7 % CERNER BJ Comment: Interpretive Data Percent cell count reference ranges are not reported, since discordance with absolute values may lead to misinterpretation of CBC data. Current Interpretive Data was last revised on 2017. Testing performed by: [facility], [address] [place] [phone] Blood 09/18/2024 8:52 AM SLITTING MACHINE OPERATOR HELPER 09/18/2024 8:55 AM SLITTING MACHINE OPERATOR HELPER us Devon Carlin MD LAB BLOOD ORDERABLES Fin al Result [facility] [place] [address] * (ABNORMAL) CBC with auto differential (09/18/2024 8:52 AM SLITTING MACHINE OPERATOR HELPER) WBC 5.6 3.8 - 9.9 K/cumm Comment:Testing performed by : [facility], [address] [place] [address] Hgb 8.8(L) 13.0 - 17.5 g/dL CERGENE HUSAIN Comment:Testing performed by : [facility], [address] [place] [address] Hct 27.0(L) 38.9 - 50.3 % CERGENE HUSAIN Comment:Testing performed by : [facility], [address] [place] [address] Plt 508(H) 150 - 400 K/cumm CERGENE [facility] Comment:Testing performed by : [facility], [address] [place] [address] MPV 6.5(L) 6.8 - 10.4 fL CERGENE [facility] Comment:Testing performed by : [facility], [address] [place] [address] RBC 3.25(L) 4.30 - 5.80 M/cumm CERGENE [facility] Comment:Testing performed by : [facility], [address] [place] [address] MCV 83.1 81.3 - 96.4 fL CERGENE [facility] Comment:Testing performed by : [facility], [address] [place] [address] MCH 27.1 27.1 - 33.3 pg [facility]ERGENE [facility] Comment:Testing performed by : [facility], [address] [place] [address] MCHC 32.7 32.3 - 35.7 g/dL CERGENE BJ Comment:Testing performed by : [facility], [address] [place] [address] RDW CV 23.3(H) 11.1 - 14.9 % [facility] Comment:Testing performed by : [facility], [address] [place] [phone] NRBC abs 0.00 0.00 - 0.01 K/cumm [facility] Comment:Testing performed by : [facility], [address] [place] [phone] Blood 09/18/2024 8:52 AM SLITTING MACHINE OPERATOR HELPER 09/18/2024 8:55 AM SLITTING MACHINE OPERATOR HELPER Devon Carlin MD LAB BLOOD ORDERABLES Fin al Result [facility] [place] [address] * (ABNORMAL) Total testosterone (09/18/2024 8:52 AM SLITTING MACHINE OPERATOR HELPER) Testosterone <5.0(L) 193.0 - 740.0 ng/dL Blood 09/18/2024 8:52 AM SLITTING MACHINE OPERATOR HELPER 09/18/2024 9:31 AM SLITTING MACHINE OPERATOR HELPER Devon Carlin MD LAB BLOOD ORDERABLES Fin al Result Performing Organization Address City/[facility]/ZIP Co de Phone Number [facility] [place] [address] * (ABNORMAL) PSA diagnostic (09/18/2024 8:52 AM SLITTING MACHINE OPERATOR HELPER) PSA-Total 207.00(H) <=6.20 ng/mL Comment: Interpretive Data [...] last revised 21. Blood 09/18/2024 8:52 AM SLITTING MACHINE OPERATOR HELPER 09/18/2024 9:02 AM SLITTING MACHINE OPERATOR HELPER us Devon Carlin MD LAB BLOOD ORDERABLES Fin al Result [facility] Department [place] [address] * (ABNORMAL) Comprehensive metabolic panel (09/18/2024 8:52 AM SLITTING MACHINE OPERATOR HELPER) Sodium 140 135 - 145 mmol/L Potassium, pl 4.1 3.3 - 4.9 mmol/L [facility] Chloride 101 97 - 110 mmol/L CERNER [facility] CO2 26 22 - 32 mmol/L CERNER [facility] Anion gap 13 2 - 15 mmol/L [facility] BUN 20 6 - 25 mg/dL [facility] Creatinine 0.95 0.80 - 1.30 mg/dL [facility] Glucose 132 70 - 199 mg/dL [facility] Comment: Interpretive Data Fasting glucose [...] 2022. Calcium 9.8 8.5 - 10.3 mg/dL CERNER [facility] Bilirubin, total 0.4 0.1 - 1.2 mg/dL [facility] Protein, pl 7.2 6.5 - 8.5 g/dL CERNER BJ Albumin 3.6 3.5 - 5.0 g/dL [facility] Alk phos 402(H) 40 - 130 Units/L CERNER BJ ALT 13 7 - 55 Units/L CERNER [facility] AST 27 10 - 50 Units/L [facility] Blood 09/18/2024 8:52 AM SLITTING MACHINE OPERATOR HELPER 09/18/2024 9:02 AM SLITTING MACHINE OPERATOR HELPER Devon Carlin MD LAB BLOOD ORDERABLES Fin al Result Performing Organization Address [facility] Co de Phone Number [facility] [place] [address] * eGFR (09/04/2024 7:07 AM SLITTING MACHINE OPERATOR HELPER) eGFR 67 >=60 mL/min/1. 73 m2 Comment: [...] last reviewed 2021. Blood 09/04/2024 7:07 AM SLITTING MACHINE OPERATOR HELPER 09/04/2024 7:12 AM SLITTING MACHINE OPERATOR HELPER Devon Carlin MD LAB BLOOD ORDERABLES Fin al Result Performing Organization Address [facility]/ZIP Co de Phone Number [facility] [address] [place] [address] * (ABNORMAL) Comprehensive metabolic panel (09/04/2024 7:07 AM SLITTING MACHINE OPERATOR HELPER) Sodium 140 135 - 145 mmol/L Potassium, pl 4.9 3.3 - 4.9 mmol/L [facility] Chloride 102 97 - 110 mmol/L [facility] CO2 27 22 - 32 mmol/L [facility] Anion gap 11 2 - 15 mmol/L [facility] BUN 21 6 - 25 mg/dL [facility] Creatinine 1.12 0.80 - 1.30 mg/dL [facility] Glucose 144 70 - 199 mg/dL [facility] Comment: Interpretive Data Fasting glucose [...] 2022. Calcium 9.2 8.5 - 10.3 mg/dL [facility] Bilirubin, total 0.2 0.1 - 1.2 mg/dL [facility] Protein, pl 6.7 6.5 - 8.5 g/dL [facility] Albumin 3.5 3.5 - 5.0 g/dL [facility] Alk phos 368(H) 40 - 130 Units/L [facility] ALT 30 7 - 55 Units/L [facility] AST 37 10 - 50 Units/L [facility] Blood 09/04/2024 7:07 AM SLITTING MACHINE OPERATOR HELPER 09/04/2024 7:12 AM SLITTING MACHINE OPERATOR HELPER us Devon Carlin MD LAB BLOOD ORDERABLES Fin al Result [facility] Department [place] [address] * (ABNORMAL) CBC with auto differential (09/04/2024 7:02 AM SLITTING MACHINE OPERATOR HELPER) WBC 6.4 3.8 - 9.9 K/cumm Comment:Testing performed by : [facility], [address] [place] [phone] Hgb 8.6(L) 13.0 - 17.5 g/dL CERNER BJ Comment:Testing performed by : [facility], [address] [place], [place] [phone] Hct 26.7(L) 38.9 - 50.3 % CERNER BJ Comment:Testing performed by : [facility], [address] [place], [place] [phone] Plt 606(H) 150 - 400 K/cumm CERNER BJ Comment:Testing performed by : [facility], [address] [place], [place] [phone] MPV 6.7(L) 6.8 - 10.4 fL CERNER BJ Comment:Testing performed by : [facility], [address] [place], [place] [phone] RBC 3.21(L) 4.30 - 5.80 M/cumm CERNER BJ Comment:Testing performed by : [facility], [address] [place], [place] [phone] MCV 83.1 81.3 - 96.4 fL CERNER BJ Comment:Testing performed by : [facility], [address] [place] [address] MCH 26.7(L) 27.1 - 33.3 pg CERNER BJ Comment:Testing performed by : [facility], [address] [place] [address] MCHC 32.2(L) 32.3 - 35.7 g/dL CERNER BJ Comment:Testing performed by : [facility], [address] [place] [address] RDW CV 19.6(H) 11.1 - 14.9 % CERNER BJ Comment:Testing performed by : [facility], [address] [place] [address] NRBC abs 0.00 0.00 - 0.01 K/cumm CERNER BJ Comment:Testing performed by : [facility], [address] [place] [address] Blood 09/04/2024 7:02 AM SLITTING MACHINE OPERATOR HELPER 09/04/2024 7:10 AM SLITTING MACHINE OPERATOR HELPER us Devon Carlin MD LAB BLOOD ORDERABLES Fin al Result NERY HUSAIN [facility] [place] [address] * (ABNORMAL) Manual Differential (09/04/2024 7:02 AM SLITTING MACHINE OPERATOR HELPER) Cells Counted 200 Comment:Testing performed by : [facility], [address] [place] [phone] Neutrophil abs 4.4 1.5 - 6.5 K/cumm CERNER BJ Comment:Testing performed by : [facility], [address] [place] [phone] Lymphocyte abs 1.5 0.8 - 3.3 K/cumm CERGENE HUSAIN Comment:Testing performed by : [facility], [address] [place] [phone] Monocyte abs 0.2 0.2 - 0.8 K/cumm CERNER BJ Comment:Testing performed by : [facility], [address] [place] [phone] Eosinophil abs 0.1 0.0 - 0.5 K/cumm CERNER BJ Comment:Testing performed by : [facility], [address] [place] [phone] Basophil abs 0.1 0.0 - 0.1 K/cumm CERNER BJ Comment:Testing performed by : [facility], [address] [place] [phone] Neutrophil pct 69.0 % CERNER BJ Comment: Interpretive Data Percent cell count reference ranges are not reported, since discordance with absolute values may lead to misinterpretation of CBC data. Current Interpretive Data was last revised on 2017. Testing performed by: [facility], [address] [place] [phone] Lymphocyte pct 24.0 % CERNER BJ Comment: Interpretive Data Percent cell count reference ranges are not reported, since discordance with absolute values may lead to misinterpretation of CBC data. Current Interpretive Data was last revised on 2017. Testing performed by: [facility], [address] [place] [phone] Monocyte pct 3.0 % CERNER [facility] Comment: Interpretive Data Percent cell count reference ranges are not reported, since discordance with absolute values may lead to misinterpretation of CBC data. Current Interpretive Data was last revised on 2017. Testing performed by: [facility], [address] [place] [phone] Eosinophil pct 2.0 % [facility] Comment: Interpretive Data Percent cell count reference ranges are not reported, since discordance with absolute values may lead to misinterpretation of CBC data. Current Interpretive Data was last revised on 2017. Testing performed by: [facility], [address] [place] [phone] Basophil pct 1.0 % [facility]ER [facility] Comment: Interpretive Data Percent cell count reference ranges are not reported, since discordance with absolute values may lead to misinterpretation of CBC data. Current Interpretive Data was last revised on 2017. Testing performed by: [facility], [address] [place] [phone] Metamyelocyte pct 2.0 % [facility]ER [facility] Comment:Testing performed by : [facility], [address] [place] [phone] Myelocyte pct 1.0 % [facility]ER [facility] Comment:Testing performed by : [facility], [address] [place] [phone] Promyelocyte pct 1.0 % C[facility]ER [facility] Comment:Testing performed by : [facility], [address] [place] [phone] RBC morphology NRBCs present(A ) CERNER [facility] Comment:Testing performed by : [facility], [address] [place] [phone] Polychromasia 1+(A) CERNER [facility] Comment:Testing performed by : [facility], [address] [place] [phone] Hypochromasia 1+(A) NERY [facility] Comment:Testing performed by : [facility], [address] [place], [place] [phone] Anisocytosis 1+(A) NERY [facility] Comment:Testing performed by : [facility], [address] [place], [place] [phone] Poikilocytosis 1+(A) NERY [facility] Comment:Testing performed by : [facility], [address] [place], [place] [phone] Elliptocytes 1+(A) NERY [facility] Comment:Testing performed by : [facility], [address] [place] [phone] Target cells 1+(A) NERY [facility] Comment:Testing performed by : [facility], [address] [place], [place] [phone] Teardrop cells 1+(A) NERY [facility] Comment:Testing performed by : [facility], [address] [place] [phone] Platelet estimate Increased (A) NERY [facility] Comment:Testing performed by : [facility], [address] [place] [phone] Giant platelets Present(A ) NERY [facility] Comment:Testing performed by : [facility], [address] [place] [phone] Blood 09/04/2024 7:02 AM SLITTING MACHINE OPERATOR HELPER 09/04/2024 7:10 AM SLITTING MACHINE OPERATOR HELPER us Devon Carlin MD LAB BLOOD ORDERABLES Fin al Result [facility] Department [place] [address] * eGFR (08/28/2024 7:48 AM SLITTING MACHINE OPERATOR HELPER) eGFR 74 >=60 mL/min/1. 73 m2 Comment: [...] last reviewed 2021. Blood 08/28/2024 7:48 AM SLITTING MACHINE OPERATOR HELPER 08/28/2024 7:58 AM SLITTING MACHINE OPERATOR HELPER us Devon Carlin MD LAB BLOOD ORDERABLES Fin al Result [facility] Department [place] [address] * (ABNORMAL) Differential, auto (08/28/2024 7:48 AM SLITTING MACHINE OPERATOR HELPER) Neutrophil abs 6.6(H) 1.5 - 6.5 K/cumm Comment:Testing performed by : [facility], [address] [place], [place] [phone] Lymphocyte abs 1.5 0.8 - 3.3 K/cumm [facility] Comment:Testing performed by : [facility], [address] [place] [address] Monocyte abs 0.4 0.2 - 0.8 K/cumm NERY [facility] Comment:Testing performed by : [facility], [address] [place] [address] Eosinophil abs 0.0 0.0 - 0.5 K/cumm NERY [facility] Comment:Testing performed by : [facility], [address] [place] [phone] Basophil abs 0.1 0.0 - 0.1 K/cumm [facility] Comment:Testing performed by : [facility], [address] [place] [phone] Neutrophil pct 76.8 % [facility]ER [facility] Comment: Interpretive Data Percent cell count reference ranges are not reported, since discordance with absolute values may lead to misinterpretation of CBC data. Current Interpretive Data was last revised on 2017. Testing performed by: [facility], [address] [place] [phone] Lymphocyte pct 17.0 % CERNER BJ Comment: Interpretive Data Percent cell count reference ranges are not reported, since discordance with absolute values may lead to misinterpretation of CBC data. Current Interpretive Data was last revised on 2017. Testing performed by: [facility], [address] [place] [phone] Monocyte pct 4.9 % CERNER BJ Comment: Interpretive Data Percent cell count reference ranges are not reported, since discordance with absolute values may lead to misinterpretation of CBC data. Current Interpretive Data was last revised on 2017. Testing performed by: [facility], [address] [place] [phone] Eosinophil pct 0.4 % CERNER BJ Comment: Interpretive Data Percent cell count reference ranges are not reported, since discordance with absolute values may lead to misinterpretation of CBC data. Current Interpretive Data was last revised on 2017. Testing performed by: [facility], [address] [place] [phone] Basophil pct 0.9 % CERNER BJ Comment: Interpretive Data Percent cell count reference ranges are not reported, since discordance with absolute values may lead to misinterpretation of CBC data. Current Interpretive Data was last revised on 2017. Testing performed by: [facility], [address] [place] [phone] Blood 08/28/2024 7:48 AM SLITTING MACHINE OPERATOR HELPER 08/28/2024 8:00 AM SLITTING MACHINE OPERATOR HELPER us Devon Carlin MD LAB BLOOD ORDERABLES Fin al Result [facility] [place] [address] * (ABNORMAL) CBC with auto differential (08/28/2024 7:48 AM SLITTING MACHINE OPERATOR HELPER) WBC 8.6 3.8 - 9.9 K/cumm Comment:Testing performed by : [facility], [address] [place] [address] Hgb 9.5(L) 13.0 - 17.5 g/dL CERNER BJ Comment:Testing performed by : [facility], [address] [place] [address] Hct 29.4(L) 38.9 - 50.3 % CERNER BJ Comment:Testing performed by : [facility], [address] [place] [address] Plt 568(H) 150 - 400 K/cumm CERNER BJ Comment:Testing performed by : [facility], [address] [place] [address] MPV 7.2 6.8 - 10.4 fL CERNER BJ Comment:Testing performed by : [facility], [address] [place] [address] RBC 3.52(L) 4.30 - 5.80 M/cumm CERNER BJ Comment:Testing performed by : [facility], [address] [place] [address] MCV 83.5 81.3 - 96.4 fL CERNER BJ Comment:Testing performed by : [facility], [address] [place] [address] MCH 27.0(L) 27.1 - 33.3 pg CERNER BJ Comment:Testing performed by : [facility], [address] [place] [address] MCHC 32.4 32.3 - 35.7 g/dL CERNER BJ Comment:Testing performed by : [facility], [address] [place] [phone] RDW CV 19.4(H) 11.1 - 14.9 % [facility] Comment:Testing performed by : [facility], [address] [place] [phone] NRBC abs 0.00 0.00 - 0.01 K/cumm N[facility] Comment:Testing performed by : [facility], [address] [place] [phone] Blood 08/28/2024 7:48 AM SLITTING MACHINE OPERATOR HELPER 08/28/2024 8:00 AM SLITTING MACHINE OPERATOR HELPER Devon Carlin MD LAB BLOOD ORDERABLES Fin al Result Performing Organization Address City/State/[facility] Co de Phone Number [facility] [place] [address] * (ABNORMAL) Total testosterone (08/28/2024 7:48 AM SLITTING MACHINE OPERATOR HELPER) Testosterone <5.0(L) 193.0 - 740.0 ng/dL Blood 08/28/2024 7:48 AM SLITTING MACHINE OPERATOR HELPER 08/28/2024 8:20 AM SLITTING MACHINE OPERATOR HELPER Devon Carlin MD LAB BLOOD ORDERABLES Fin al Result Performing Organization Address City/[facility] de Phone Number [facility] [place] [address] * (ABNORMAL) PSA diagnostic (08/28/2024 7:48 AM SLITTING MACHINE OPERATOR HELPER) PSA-Total 188.00(H) <=6.20 ng/mL Comment: Interpretive Data [...] last revised 21. Blood 08/28/2024 7:48 AM SLITTING MACHINE OPERATOR HELPER 08/28/2024 7:58 AM SLITTING MACHINE OPERATOR HELPER us Devon Carlin MD LAB BLOOD ORDERABLES Fin al Result [facility] [place] [address] * (ABNORMAL) Comprehensive metabolic panel (08/28/2024 7:48 AM SLITTING MACHINE OPERATOR HELPER) Sodium 140 135 - 145 mmol/L Potassium, pl 4.4 3.3 - 4.9 mmol/L [facility] Chloride 100 97 - 110 mmol/L [facility] CO2 29 22 - 32 mmol/L [facility] Anion gap 11 2 - 15 mmol/L [facility] BUN 23 6 - 25 mg/dL [facility] Creatinine 1.03 0.80 - 1.30 mg/dL [facility] Glucose 166 70 - 199 mg/dL [facility] Comment: Interpretive Data Fasting glucose [...] 2022. Calcium 9.7 8.5 - 10.3 mg/dL [facility] Bilirubin, total 0.3 0.1 - 1.2 mg/dL [facility] Protein, pl 7.1 6.5 - 8.5 g/dL [facility] Albumin 3.4(L) 3.5 - 5.0 g/dL [facility] Alk phos 411(H) 40 - 130 Units/L [facility] ALT 38 7 - 55 Units/L [facility] AST 36 10 - 50 Units/L [facility] Blood 08/28/2024 7:48 AM SLITTING MACHINE OPERATOR HELPER 08/28/2024 7:58 AM SLITTING MACHINE OPERATOR HELPER Devon Carlin MD LAB BLOOD ORDERABLES Fin al Result [facility] [place] [address] from Last 3 Months Additional Health Concerns Infection Onset Date Last Indicated C. difficile Comment:Contact Precautions until patient has completed at least 7 -day course of therapy and has been diarrhea-free for at least 48 hours (whichever is longer) - Ben SUMMERS, RN 11/11/24 11/07/2024 11/07/2024 Insurance MEDICARE [facility] MEDICARE MEDICARE Advance Directives For more information, please contact: [phone] Documents on File Type Date Recorded Patient Dye House Helper Expl anation Advance Directives and Livin g [...] 11:47 PM 12/21/2023 7:08 PM Care Teams Tax Accountant Relationship Specialty Start Date End Date Saw Ga MD [address] [place] [id number] PCP - General 10/20/16 Juan Alberto Hilario MD [address] [place] [address] [place] [address] PCP - Hospice Attending 11/05/24 Devon Carlin MD [address] [facility] IM MEDICAL ONCOLOGY, [address] [address] [place] [address] Medical Oncology 12/21/23
--- NOTE | 2024-11-25 16:48 | ECG_ITS ---
Test Date: 2024-11-25 16:50:22 Measurements Intervals [place] Rate: 65 P: 24 RI: 156 QRS: 26 QRSD: 87 T: 38 QT: 381 QTc: 396 Interpretive Statements SINUS RHYTHM NORMAL ELECTROCARDIOGRAM Compared to ECG 11/25/2024 16:45:01 Atrial fibrillation no longer present Electronically Signed On 11-26-2024 07:16:31 CDT by Ori Alonso M.D.
--- OUTSIDE RECORDS SUMMARY | 2024-11-25 16:57 | XMS_ITS | Clinical Summary ---
Author Organization Unknown Care Team Providers Care Puppet Engineer Name Role Phone STEPHAN SHARMA, ALICE Unavailable Unavailable TARYN TRAMMELL, CHAYA Unavailable Unavailable СВЕТЛАНА CHOUDHURYN, SAUL Unavailable Unavailable BLAIR PT, ADRIAN Unavailable Unavailable Payers Payer Name Policy Type Policy Number Effective Date Expira tion Date [id number] Problems Condition Name Condition Details Condition Category [...] OF NICOTINE DEPENDENCE Active 10-29 00:00: 00 LONGTERM (CURRENT) USE OF SYSTEMIC STEROIDS Active - 00:00: 00 LONGTERM (CURRENT) USE OF ORAL HYPOGLYCEMIC DRUGS Active 07-23 00:00: 00 WHOLESALE MANAGER (CURRENT) USE OF OPIATE ANALGESIC Active [...] 4 mg tablet 10-24 00:00: 00 Yes [id number] CHEMO 1 tablet DAILY 1 tablet DAILY (route: oral) Med Classific ation: Endocrine furosemide 20 mg tablet 10-24 00:00: 00 Yes [id number] DIURETIC 1 tablet DAILY 1 tablet DAILY (route: oral) Med Classific ation: Cardiovas cular Therapy Agents metoprolol succinate ER 25 mg tablet,exte nded release 24 hr - 00:00: 00 Yes [id number] HTN 1 tablet DAILY 1 tablet DAILY (route: oral) Med Classific ation: Cardiovas cular Therapy Agents duloxetine 60 mg capsule,del ayed release 10-16 00:00: 00 10-29 00:00 :00 No [id number] Per instruc tions Per instructio ns (route: oral) Med Classific ation: Central Nervous System Agents metformin ER 500 mg tablet,exte nded release 24 hr - 00:00: 00 Yes [id number] DM2 1 tablet DAILY 1 tablet DAILY (route: oral) Med Classific ation: Endocrine lubiproston e 24 mcg capsule - 00:00: 00 Yes [id number] CONSTIPATIO N 1 capsule TWICE DAILY 1 capsule TWICE DAILY (route: oral) Med Classific ation: Gastroint estinal Therapy Agents trazodone 50 mg tablet - 00:00: 00 10-29 00:00 :00 No [id number] Per instruc tions Per instructio ns (route: oral) Med Classific ation: Central Nervous System Agents atorvastati n 20 mg tablet 10-13 00:00: 00 Yes [id number] CHOLESTEROL 1 tablet DAILY 1 tablet DAILY (route: oral) Med Classific ation: Cardiovas cular Therapy Agents amlodipine 2.5 mg tablet 10-11 00:00: 00 10-29 00:00 :00 No [id number] Per instruc tions TODOS LOS DAILY AT Per instructio ns TODOS LOS DAILY AT (route: oral) Med Classific ation: Cardiovas cular Therapy Agents Lokelma 10 gram oral powder packet 10-11 00:00: 00 10-29 00:00 :00 No [id number] Per instruc tions Per instructio ns (route: oral) Med Classific ation: Electroly te Balance-N utritiona l Products polyethylen e glycol 3350 17 gram/dose oral powder 10-11 00:00: 00 Yes [id number] CONSTIPATIO N Per instruc tions DAILY Per instructio ns DAILY (route: oral) Med Classific ation: Gastroint estinal Therapy Agents acetaminoph en 500 mg tablet 10-29 00:00: 00 Yes [id number] PAIN 1 tablet EVERY 6 HOURS 1 tablet EVERY 6 HOURS (route: oral) Med Classific ation: Analgesic , Anti-infl ammatory or Antipyret ic Antacid 200 mg (as calcium carbonate 500 mg) chewable tablet 10-29 00:00: 00 Yes [id number] SUPPLEMENT 2 tablet 2 TIMES DAILY 2 tablet 2 TIMES DAILY (route: oral) Med Classific ation: Gastroint estinal Therapy Agents bisacodyl 5 mg tablet,neda yed release 10-29 00:00: 00 Yes [id number] CONSTIPATIO N 1 tablet DAILY 1 tablet DAILY (route: oral) Med Classific ation: Gastroint estinal Therapy Agents Compazine 10 mg tablet 10-29 00:00: 00 Yes [id number] NAUSEA 1 tablet EVERY 6 HOURS 1 tablet EVERY 6 HOURS (route: oral) Med Classific ation: Gastroint estinal Therapy Agents docusate sodium 100 mg capsule 10-29 00:00: 00 Yes [id number] CONSTIPATIO N 1 capsule DAILY 1 capsule DAILY (route: oral) Med Classific ation: Gastroint estinal Therapy Agents esomeprazol e magnesium 40 mg capsule,del ayed release 10-29 00:00: 00 Yes [id number] GERD 1 capsule DAILY 1 capsule DAILY (route: oral) Med Classific ation: Gastroint estinal Therapy Agents flecainide 100 mg tablet 10-29 00:00: 00 Yes [id number] AFIB 1 tablet DAILY 1 tablet DAILY (route: oral) Med Classific ation: Cardiovas cular Therapy Agents K-Phos Original 500 mg soluble tablet 10-29 00:00: 00 Yes [id number] SUPPLEMENT 1 tablet 2 TIMES DAILY 1 tablet 2 TIMES DAILY (route: oral) Med Classific ation: Genitouri nary Therapy lidocaine 5 % topical patch 10-29 00:00: 00 Yes [id number] BACK PAIN 1 adhesiv e patch, medicat ed EVERY 12 HOURS 1 adhesive patch, medicated EVERY 12 HOURS (route: topical) Med Classific ation: Dermatolo gical oxycodone 10 mg tablet 10-29 00:00: 00 Yes [id number] PAIN 1 tablet EVERY 6 HOURS 1 tablet EVERY 6 HOURS (route: oral) Med Classific ation: Analgesic , Anti-infl ammatory or Antipyret ic Senna Plus 8.6 mg-50 mg capsule 10-29 00:00: 00 Yes [id number] CONSTIPATIO N 2 capsule 2 TIMES DAILY [...] PHYSICIANS STEPHAN. RN TO OBSERVE AND ASSESS, FAMILY PRESERVATION WORKER/CHALK EXTRUDING MACHINE OPERATOR TO OBSERVE FOR RISK FOR FALLS AND INSTRUCT IN FALL PREVENTION, HOME SAFETY, MEDICATION MANAGEMENT, INFECTION PREVENTION, AND NUTRITION MANAGEMENT. RN/FAMILY PRESERVATION WORKER/CHALK EXTRUDING MACHINE OPERATOR NURSE MAY PERFORM O2 SATURATION LEVEL ON ADMISSION AND PRN FOR 1 FOR RN TO ASSESS/FAMILY PRESERVATION WORKER TO OBSERVE PATIENT, WITH NOTIFICATION TO THE PHYSICIAN IF SATURATION IS 90% IN THE ABSENCE OF MORE SPECIFIC PARAMETERS FROM THE PHYSICIAN. AGENCY MAY PERFORM A RESUMPTION OF CARE VISIT FOLLOWING ANY HOSPITAL ADMISSION. RN/FAMILY PRESERVATION WORKER/CHALK EXTRUDING MACHINE OPERATOR TO MONITOR CO-MORBID CONDITIONS LISTED ON THE PLAN OF CARE AND ANY NEW CONDITIONS THAT PRESENT THEMSELVES DURING THIS EPISODE TO IDENTIFY CHANGES AND INTERVENE TO MINIMIZE COMPLICATIONS. [code = RN TO OBSERVE, ASSESS, EVALUATE, AND DEVELOP AN INDIVIDUALIZED PLAN OF CARE. AGENCY MAY ACCEPT ORDERS FROM CONSULTING PHYSICIANS STEPHAN. RN TO OBSERVE AND ASSESS, FAMILY PRESERVATION WORKER/CHALK EXTRUDING MACHINE OPERATOR TO OBSERVE FOR RISK FOR FALLS AND INSTRUCT IN FALL PREVENTION, HOME SAFETY, MEDICATION MANAGEMENT, INFECTION PREVENTION, AND NUTRITION MANAGEMENT. RN/FAMILY PRESERVATION WORKER/CHALK EXTRUDING MACHINE OPERATOR NURSE MAY PERFORM O2 SATURATION LEVEL ON ADMISSION AND PRN FOR 1 FOR RN TO ASSESS/FAMILY PRESERVATION WORKER TO OBSERVE PATIENT, WITH NOTIFICATION TO THE PHYSICIAN IF SATURATION IS 90% IN THE ABSENCE OF MORE SPECIFIC PARAMETERS FROM THE PHYSICIAN. AGENCY MAY PERFORM A RESUMPTION OF CARE VISIT FOLLOWING ANY HOSPITAL ADMISSION. RN/FAMILY PRESERVATION WORKER/CHALK EXTRUDING MACHINE OPERATOR TO MONITOR CO-MORBID CONDITIONS LISTED ON THE PLAN OF CARE AND ANY NEW CONDITIONS THAT PRESENT THEMSELVES DURING THIS EPISODE TO IDENTIFY CHANGES AND INTERVENE TO MINIMIZE COMPLICATIONS.] Future Scheduled Test MEDICATION MANAGEMENT; RN/FAMILY PRESERVATION WORKER/CHALK EXTRUDING MACHINE OPERATOR TO REVIEW MEDICATIONS FOR INTERACTIONS, EFFECTIVENESS OF DRUG THERAPY, AND SIGNS/SYMPTOMS OF ADVERSE REACTIONS. MAY INSTRUCT AND REINFORCE MEDICATION TEACHING RELATED TO THE USE OF MEDICATIONS, DOSAGE, FREQUENCY, PURPOSE, SIDE EFFECTS, AND TO REPORT COMPLICATIONS. [code = MEDICATION MANAGEMENT; RN/FAMILY PRESERVATION WORKER/CHALK EXTRUDING MACHINE OPERATOR TO REVIEW MEDICATIONS FOR INTERACTIONS, EFFECTIVENESS OF DRUG THERAPY, AND SIGNS/SYMPTOMS OF ADVERSE REACTIONS. MAY INSTRUCT AND REINFORCE MEDICATION TEACHING RELATED TO THE USE OF MEDICATIONS, DOSAGE, FREQUENCY, PURPOSE, SIDE EFFECTS, AND TO REPORT COMPLICATIONS.] Future Scheduled Test RISK FOR H OSPITALIZATION; RN TO ASSESS/TEACH, CHALK EXTRUDING MACHINE OPERATOR/FAMILY PRESERVATION WORKER TO OBSERVE/TEACH PATIENT/CAREGIVER ON RISK FOR HOSPITALIZATION/EMERGENCY ROOM VISITS, TEACH SIGNS AND SYMPTOMS THAT PUT PATIENT AT RISK, WHEN TO NOTIFY NURSE/PHYSICIAN OF COMPLICATIONS/DECLINE, AND WHEN TO CALL 911. [code = RISK FOR HOSPITALIZATION; RN TO ASSESS/TEACH, CHALK EXTRUDING MACHINE OPERATOR/FAMILY PRESERVATION WORKER TO OBSERVE/TEACH PATIENT/CAREGIVER ON RISK FOR HOSPITALIZATION/EMERGENCY ROOM VISITS, TEACH SIGNS AND SYMPTOMS THAT PUT PATIENT AT RISK, WHEN TO NOTIFY NURSE/PHYSICIAN OF COMPLICATIONS/DECLINE, AND WHEN TO CALL 911.] Future Scheduled Test CARDIOVASC ULAR SYSTEM; RN TO ASSESS/TEACH, FAMILY PRESERVATION WORKER/CHALK EXTRUDING MACHINE OPERATOR TO OBSERVE/TEACH RELATED TO ALTERED CARDIOVASCULAR STATUS TO MINIMIZE COMPLICATIONS AND REDUCE HOSPITALIZATION. [code = CARDIOVASCULAR SYSTEM; RN TO ASSESS/TEACH, FAMILY PRESERVATION WORKER/CHALK EXTRUDING MACHINE OPERATOR TO OBSERVE/TEACH RELATED TO ALTERED CARDIOVASCULAR STATUS TO MINIMIZE COMPLICATIONS AND REDUCE HOSPITALIZATION.] Future Scheduled Test PAIN MANAG EMENT; RN TO ASSESS AND TEACH, CHALK EXTRUDING MACHINE OPERATOR/FAMILY PRESERVATION WORKER TO OBSERVE AND TEACH AND PROVIDE EDUCATION ON PAIN MANAGEMENT TECHNIQUES. [code = PAIN MANAGEMENT; RN TO ASSESS AND TEACH, CHALK EXTRUDING MACHINE OPERATOR/FAMILY PRESERVATION WORKER TO OBSERVE AND TEACH AND PROVIDE EDUCATION ON PAIN MANAGEMENT TECHNIQUES.] Future Scheduled Test DIABETES M ANAGEMENT; RN TO ASSESS AND TEACH, CHALK EXTRUDING MACHINE OPERATOR/FAMILY PRESERVATION WORKER TO OBSERVE AND TEACH INSTRUCTIONS OF DIABETIC CARE TO INCLUDE: DIET DIABETIC, SKIN CARE, SIGNS AND SYMPTOMS OF HYPO/HYPERGLYCEMIA, PROPER ADMINISTRATION OF DIABETIC MEDICATION. RN/CHALK EXTRUDING MACHINE OPERATOR/FAMILY PRESERVATION WORKER TO INSTRUCT ON DIABETIC FOOT CARE AND MONITOR FOR SKIN LESIONS ON LOWER EXTREMITIES. BLOOD GLUCOSE TESTING PRN FREQ. RN TO ASSESS AND TEACH, CHALK EXTRUDING MACHINE OPERATOR/FAMILY PRESERVATION WORKER TO OBSERVE AND TEACH PATIENT/CAREGIVER ABILITY TO PERFORM AND RECORD BLOOD GLUCOSE TESTING ORDERED AND TO REPORT ABNORMAL FINDINGS TO PHYSICIAN. RN/CHALK EXTRUDING MACHINE OPERATOR/FAMILY PRESERVATION WORKER MAY PERFORM BLOOD GLUCOSE TEST NEEDED. NO ORDER TO CHECK BGL RN/CHALK EXTRUDING MACHINE OPERATOR/FAMILY PRESERVATION WORKER TO INSTRUCT PATIENT ON IMPORTANCE OF HGBA1C MONITORING, KIDNEY FUNCTION TEST, EYE AND FOOT EXAMS. [code = DIABETES MANAGEMENT; RN TO ASSESS AND TEACH, CHALK EXTRUDING MACHINE OPERATOR/FAMILY PRESERVATION WORKER TO OBSERVE AND TEACH INSTRUCTIONS OF DIABETIC CARE TO INCLUDE: DIET DIABETIC, SKIN CARE, SIGNS AND SYMPTOMS OF HYPO/HYPERGLYCEMIA, PROPER ADMINISTRATION OF DIABETIC MEDICATION. RN/CHALK EXTRUDING MACHINE OPERATOR/FAMILY PRESERVATION WORKER TO INSTRUCT ON DIABETIC FOOT CARE AND MONITOR FOR SKIN LESIONS ON LOWER EXTREMITIES. BLOOD GLUCOSE TESTING PRN FREQ. RN TO ASSESS AND TEACH, CHALK EXTRUDING MACHINE OPERATOR/FAMILY PRESERVATION WORKER TO OBSERVE AND TEACH PATIENT/CAREGIVER ABILITY TO PERFORM AND RECORD BLOOD GLUCOSE TESTING ORDERED AND TO REPORT ABNORMAL FINDINGS TO PHYSICIAN. RN/CHALK EXTRUDING MACHINE OPERATOR/FAMILY PRESERVATION WORKER MAY PERFORM BLOOD GLUCOSE TEST NEEDED. NO ORDER TO CHECK BGL RN/CHALK EXTRUDING MACHINE OPERATOR/FAMILY PRESERVATION WORKER TO INSTRUCT PATIENT ON IMPORTANCE OF HGBA1C MONITORING, KIDNEY FUNCTION TEST, EYE AND FOOT EXAMS.] Future Scheduled Test GENITOURIN FRANCIS MANAGEMENT; RN TO ASSESS AND TEACH, FAMILY PRESERVATION WORKER/CHALK EXTRUDING MACHINE OPERATOR TO OBSERVE AND TEACH RELATED TO ALTERED GENITOURINARY STATUS TO MINIMIZE COMPLICATIONS AND REDUCE HOSPITALIZATION. [code = GENITOURINARY MANAGEMENT; RN TO ASSESS AND TEACH, FAMILY PRESERVATION WORKER/CHALK EXTRUDING MACHINE OPERATOR TO OBSERVE AND TEACH RELATED TO ALTERED GENITOURINARY STATUS TO MINIMIZE COMPLICATIONS AND REDUCE HOSPITALIZATION.] Future Scheduled Test URINARY MO LECULAR TESTING PROTOCOL UP TO 2 PRN RN/FAMILY PRESERVATION WORKER/CHALK EXTRUDING MACHINE OPERATOR VISITS MAY BE PERFORMED FOR S/S OF UTI. RN TO ASSESS, FAMILY PRESERVATION WORKER/CHALK EXTRUDING MACHINE OPERATOR TO OBSERVE INITIATION OF UTI PROTOCOL. RN/CHALK EXTRUDING MACHINE OPERATOR/FAMILY PRESERVATION WORKER TO INSTRUCT PATIENT AND/OR CAREGIVER ON S/S OF UTI TO REPORT TO RN/CHALK EXTRUDING MACHINE OPERATOR/FAMILY PRESERVATION WORKER IF NEW OR WORSENING SYMPTOMS. DRINK PLENTY OF WATER THROUGHOUT THE DAY TO MAINTAIN HYDRATION (UNLESS CONTRAINDICATED.) URINATE WHEN THE URGE IS FELT, DO NOT WAIT. WASH GENITALS DAILY. WIPE FROM FRONT TO BACK AFTER HAVING A BOWEL MOVEMENT. RN/CHALK EXTRUDING MACHINE OPERATOR/FAMILY PRESERVATION WORKER TO OBTAIN MOLECULAR URINE TESTING BY OPTION 1 OR OPTION 2 (OPTION 1) RN/CHALK EXTRUDING MACHINE OPERATOR/FAMILY PRESERVATION WORKER TO OBTAIN U/A WITH REFLEX TO UTI PANEL (MOLECULAR) VIA CLEAN CATCH URINE AND IF UNABLE TO OBTAIN MAY PERFORM AN IN AND OUT CATH. IF PATIENT HAS INDWELLING CATHETER MAY OBTAIN FROM SAMPLING PORT. (OPTION 2) RN/CHALK EXTRUDING MACHINE OPERATOR/FAMILY PRESERVATION WORKER TO OBTAIN UTI PANEL (MOLECULAR) VIA SWAB COLLECTION METHOD FROM ADULT BRIEF/DIAPER OR PAD IF PATIENT IS INCONTINENT. NOTIFY PROVIDER OF RESULTS AND OBTAIN FURTHER ORDERS. [code = URINARY MOLECULAR TESTING PROTOCOL UP TO 2 PRN RN/FAMILY PRESERVATION WORKER/CHALK EXTRUDING MACHINE OPERATOR VISITS MAY BE PERFORMED FOR S/S OF UTI. RN TO ASSESS, FAMILY PRESERVATION WORKER/CHALK EXTRUDING MACHINE OPERATOR TO OBSERVE INITIATION OF UTI PROTOCOL. RN/CHALK EXTRUDING MACHINE OPERATOR/FAMILY PRESERVATION WORKER TO INSTRUCT PATIENT AND/OR CAREGIVER ON S/S OF UTI TO REPORT TO RN/CHALK EXTRUDING MACHINE OPERATOR/FAMILY PRESERVATION WORKER IF NEW OR WORSENING SYMPTOMS. DRINK PLENTY OF WATER THROUGHOUT THE DAY TO MAINTAIN HYDRATION (UNLESS CONTRAINDICATED.) URINATE WHEN THE URGE IS FELT, DO NOT WAIT. WASH GENITALS DAILY. WIPE FROM FRONT TO BACK AFTER HAVING A BOWEL MOVEMENT. RN/CHALK EXTRUDING MACHINE OPERATOR/FAMILY PRESERVATION WORKER TO OBTAIN MOLECULAR URINE TESTING BY OPTION 1 OR OPTION 2 (OPTION 1) RN/CHALK EXTRUDING MACHINE OPERATOR/FAMILY PRESERVATION WORKER TO OBTAIN U/A WITH REFLEX TO UTI PANEL (MOLECULAR) VIA CLEAN CATCH URINE AND IF UNABLE TO OBTAIN MAY PERFORM AN IN AND OUT CATH. IF PATIENT HAS INDWELLING CATHETER MAY OBTAIN FROM SAMPLING PORT. (OPTION 2) RN/CHALK EXTRUDING MACHINE OPERATOR/FAMILY PRESERVATION WORKER TO OBTAIN UTI PANEL (MOLECULAR) VIA SWAB COLLECTION METHOD FROM ADULT BRIEF/DIAPER OR PAD IF PATIENT IS INCONTINENT. NOTIFY PROVIDER OF RESULTS AND OBTAIN FURTHER ORDERS.] Future Scheduled Test CANCER MAN AGEMENT; RN TO ASSESS AND TEACH, CHALK EXTRUDING MACHINE OPERATOR/FAMILY PRESERVATION WORKER TO OBSERVE AND TEACH AND PROVIDE EDUCATION ON CANCER. [code = CANCER MANAGEMENT; RN TO ASSESS AND TEACH, CHALK EXTRUDING MACHINE OPERATOR/FAMILY PRESERVATION WORKER TO OBSERVE AND TEACH AND PROVIDE EDUCATION ON CANCER.] Future Scheduled Test FALL REDUC TION MANAGEMENT; RN TO ASSESS AND OBSERVE, FAMILY PRESERVATION WORKER/CHALK EXTRUDING MACHINE OPERATOR TO OBSERVE FALL RISK FACTORS AND EDUCATE PATIENT/CAREGIVER ON STRATEGIES TO MINIMIZE THE RISK OF FALLING. [code = FALL REDUCTION MANAGEMENT; RN TO ASSESS AND OBSERVE, FAMILY PRESERVATION WORKER/CHALK EXTRUDING MACHINE OPERATOR TO OBSERVE FALL RISK FACTORS AND EDUCATE PATIENT/CAREGIVER ON STRATEGIES TO MINIMIZE THE RISK OF FALLING.] Future Scheduled Test HOME HEALT H AIDE SERVICE FOR ASSISTANCE WITH PERSONAL CARE, HYGIENE AND ACTIVITIES OF DAILY LIVING. [code = HOME HEALTH AIDE SERVICE FOR ASSISTANCE WITH PERSONAL CARE, HYGIENE AND ACTIVITIES OF DAILY LIVING.] Future Scheduled Test PRN VISITS ; NUMBER OF RN/FAMILY PRESERVATION WORKER/CHALK EXTRUDING MACHINE OPERATOR VISITS: 1 RN/FAMILY PRESERVATION WORKER/CHALK EXTRUDING MACHINE OPERATOR TO PERFORM: TOPOGRAPHICAL ENGINEER FOR THE FOLLOWING REASONS: URINE MOLECULAR [code = PRN VISITS; NUMBER OF RN/FAMILY PRESERVATION WORKER/CHALK EXTRUDING MACHINE OPERATOR VISITS: 1 RN/FAMILY PRESERVATION WORKER/CHALK EXTRUDING MACHINE OPERATOR TO PERFORM: TOPOGRAPHICAL ENGINEER FOR THE FOLLOWING REASONS: URINE MOLECULAR ] [...] End Date/Time Encounter Type Admission Type Attending [facility] Care Department Encounter ID Discharge Date Discharge Status Discharge Condition Discharge Reason Percent Goals Met 2024-10-29 00:00:00 2024-12-27 00:00:00 Outpatient NEW ADMISSION [facility]AYA [facility] [id number] 88.24
--- OUTSIDE RECORDS SUMMARY | 2024-11-25 16:57 | XMS_ITS | Clinical Summary ---
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) USE OF OPIATE ANALGESIC Active 07-23 [...] 4 mg tablet 10-24 00:00: 00 Yes [id number] CHEMO 1 tablet DAILY 1 tablet DAILY (route: oral) Med Classific ation: Endocrine furosemide 20 mg tablet 10-24 00:00: 00 Yes [id number] DIURETIC 1 tablet DAILY 1 tablet DAILY (route: oral) Med Classific ation: Cardiovas cular Therapy Agents metoprolol succinate ER 25 mg tablet,exte nded release 24 hr - 00:00: 00 Yes [id number] HTN 1 tablet DAILY 1 tablet DAILY (route: oral) Med Classific ation: Cardiovas cular Therapy Agents duloxetine 60 mg capsule,del ayed release 10-16 00:00: 00 10-29 00:00 :00 No [id number] Per instruc tions Per instructio ns (route: oral) Med Classific ation: Central Nervous System Agents metformin ER 500 mg tablet,exte nded release 24 hr - 00:00: 00 Yes [id number] DM2 1 tablet DAILY 1 tablet DAILY (route: oral) Med Classific ation: Endocrine lubiproston e 24 mcg capsule - 00:00: 00 Yes [id number] CONSTIPATIO N 1 capsule TWICE DAILY 1 capsule TWICE DAILY (route: oral) Med Classific ation: Gastroint estinal Therapy Agents trazodone 50 mg tablet - 00:00: 00 10-29 00:00 :00 No [id number] Per instruc tions Per instructio ns (route: oral) Med Classific ation: Central Nervous System Agents atorvastati n 20 mg tablet 10-13 00:00: 00 Yes [id number] CHOLESTEROL 1 tablet DAILY 1 tablet DAILY (route: oral) Med Classific ation: Cardiovas cular Therapy Agents amlodipine 2.5 mg tablet 10-11 00:00: 00 10-29 00:00 :00 No [id number] Per instruc tions TODOS LOS DAILY AT Per instructio ns TODOS LOS DAILY AT (route: oral) Med Classific ation: Cardiovas cular Therapy Agents Lokelma 10 gram oral powder packet 10-11 00:00: 00 10-29 00:00 :00 No [id number] Per instruc tions Per instructio ns (route: oral) Med Classific ation: Electroly te Balance-N utritiona l Products polyethylen e glycol 3350 17 gram/dose oral powder 10-11 00:00: 00 Yes [id number] CONSTIPATIO N Per instruc tions DAILY Per instructio ns DAILY (route: oral) Med Classific ation: Gastroint estinal Therapy Agents acetaminoph en 500 mg tablet 10-29 00:00: 00 Yes [id number] PAIN 1 tablet EVERY 6 HOURS 1 tablet EVERY 6 HOURS (route: oral) Med Classific ation: Analgesic , Anti-infl ammatory or Antipyret ic Antacid 200 mg (as calcium carbonate 500 mg) chewable tablet 10-29 00:00: 00 Yes [id number] SUPPLEMENT 2 tablet 2 TIMES DAILY 2 tablet 2 TIMES DAILY (route: oral) Med Classific ation: Gastroint estinal Therapy Agents bisacodyl 5 mg tablet,neda yed release 10-29 00:00: 00 Yes [id number] CONSTIPATIO N 1 tablet DAILY 1 tablet DAILY (route: oral) Med Classific ation: Gastroint estinal Therapy Agents Compazine 10 mg tablet 10-29 00:00: 00 Yes [id number] NAUSEA 1 tablet EVERY 6 HOURS 1 tablet EVERY 6 HOURS (route: oral) Med Classific ation: Gastroint estinal Therapy Agents docusate sodium 100 mg capsule 10-29 00:00: 00 Yes [id number] CONSTIPATIO N 1 capsule DAILY 1 capsule DAILY (route: oral) Med Classific ation: Gastroint estinal Therapy Agents esomeprazol e magnesium 40 mg capsule,del ayed release 10-29 00:00: 00 Yes [id number] GERD 1 capsule DAILY 1 capsule DAILY (route: oral) Med Classific ation: Gastroint estinal Therapy Agents flecainide 100 mg tablet 10-29 00:00: 00 Yes [id number] AFIB 1 tablet DAILY 1 tablet DAILY (route: oral) Med Classific ation: Cardiovas cular Therapy Agents K-Phos Original 500 mg soluble tablet 10-29 00:00: 00 Yes [id number] SUPPLEMENT 1 tablet 2 TIMES DAILY 1 tablet 2 TIMES DAILY (route: oral) Med Classific ation: Genitouri nary Therapy lidocaine 5 % topical patch 10-29 00:00: 00 Yes [id number] BACK PAIN 1 adhesiv e patch, medicat ed EVERY 12 HOURS 1 adhesive patch, medicated EVERY 12 HOURS (route: topical) Med Classific ation: Dermatolo gical oxycodone 10 mg tablet 10-29 00:00: 00 Yes [id number] PAIN 1 tablet EVERY 6 HOURS 1 tablet EVERY 6 HOURS (route: oral) Med Classific ation: Analgesic , Anti-infl ammatory or Antipyret ic Senna Plus 8.6 mg-50 mg capsule 10-29 00:00: 00 Yes [id number] CONSTIPATIO N 2 capsule 2 TIMES DAILY [...] PHYSICIANS STEPHAN. RN TO OBSERVE AND ASSESS, COLLECTIONS AGENT/ICING MACHINE OPERATOR TO OBSERVE FOR RISK FOR FALLS AND INSTRUCT IN FALL PREVENTION, HOME SAFETY, MEDICATION MANAGEMENT, INFECTION PREVENTION, AND NUTRITION MANAGEMENT. RN/COLLECTIONS AGENT/ICING MACHINE OPERATOR NURSE MAY PERFORM O2 SATURATION LEVEL ON ADMISSION AND PRN FOR 1 FOR RN TO ASSESS/COLLECTIONS AGENT TO OBSERVE PATIENT, WITH NOTIFICATION TO THE PHYSICIAN IF SATURATION IS 90% IN THE ABSENCE OF MORE SPECIFIC PARAMETERS FROM THE PHYSICIAN. AGENCY MAY PERFORM A RESUMPTION OF CARE VISIT FOLLOWING ANY HOSPITAL ADMISSION. RN/COLLECTIONS AGENT/ICING MACHINE OPERATOR TO MONITOR CO-MORBID CONDITIONS LISTED ON THE PLAN OF CARE AND ANY NEW CONDITIONS THAT PRESENT THEMSELVES DURING THIS EPISODE TO IDENTIFY CHANGES AND INTERVENE TO MINIMIZE COMPLICATIONS. [code = RN TO OBSERVE, ASSESS, EVALUATE, AND DEVELOP AN INDIVIDUALIZED PLAN OF CARE. AGENCY MAY ACCEPT ORDERS FROM CONSULTING PHYSICIANS STEPHAN. RN TO OBSERVE AND ASSESS, COLLECTIONS AGENT/ICING MACHINE OPERATOR TO OBSERVE FOR RISK FOR FALLS AND INSTRUCT IN FALL PREVENTION, HOME SAFETY, MEDICATION MANAGEMENT, INFECTION PREVENTION, AND NUTRITION MANAGEMENT. RN/COLLECTIONS AGENT/ICING MACHINE OPERATOR NURSE MAY PERFORM O2 SATURATION LEVEL ON ADMISSION AND PRN FOR 1 FOR RN TO ASSESS/COLLECTIONS AGENT TO OBSERVE PATIENT, WITH NOTIFICATION TO THE PHYSICIAN IF SATURATION IS 90% IN THE ABSENCE OF MORE SPECIFIC PARAMETERS FROM THE PHYSICIAN. AGENCY MAY PERFORM A RESUMPTION OF CARE VISIT FOLLOWING ANY HOSPITAL ADMISSION. RN/COLLECTIONS AGENT/ICING MACHINE OPERATOR TO MONITOR CO-MORBID CONDITIONS LISTED ON THE PLAN OF CARE AND ANY NEW CONDITIONS THAT PRESENT THEMSELVES DURING THIS EPISODE TO IDENTIFY CHANGES AND INTERVENE TO MINIMIZE COMPLICATIONS.] Future Scheduled Test MEDICATION MANAGEMENT; RN/COLLECTIONS AGENT/ICING MACHINE OPERATOR TO REVIEW MEDICATIONS FOR INTERACTIONS, EFFECTIVENESS OF DRUG THERAPY, AND SIGNS/SYMPTOMS OF ADVERSE REACTIONS. MAY INSTRUCT AND REINFORCE MEDICATION TEACHING RELATED TO THE USE OF MEDICATIONS, DOSAGE, FREQUENCY, PURPOSE, SIDE EFFECTS, AND TO REPORT COMPLICATIONS. [code = MEDICATION MANAGEMENT; RN/COLLECTIONS AGENT/ICING MACHINE OPERATOR TO REVIEW MEDICATIONS FOR INTERACTIONS, EFFECTIVENESS OF DRUG THERAPY, AND SIGNS/SYMPTOMS OF ADVERSE REACTIONS. MAY INSTRUCT AND REINFORCE MEDICATION TEACHING RELATED TO THE USE OF MEDICATIONS, DOSAGE, FREQUENCY, PURPOSE, SIDE EFFECTS, AND TO REPORT COMPLICATIONS.] Future Scheduled Test RISK FOR H OSPITALIZATION; RN TO ASSESS/TEACH, ICING MACHINE OPERATOR/COLLECTIONS AGENT TO OBSERVE/TEACH PATIENT/CAREGIVER ON RISK FOR HOSPITALIZATION/EMERGENCY ROOM VISITS, TEACH SIGNS AND SYMPTOMS THAT PUT PATIENT AT RISK, WHEN TO NOTIFY NURSE/PHYSICIAN OF COMPLICATIONS/DECLINE, AND WHEN TO CALL 911. [code = RISK FOR HOSPITALIZATION; RN TO ASSESS/TEACH, ICING MACHINE OPERATOR/COLLECTIONS AGENT TO OBSERVE/TEACH PATIENT/CAREGIVER ON RISK FOR HOSPITALIZATION/EMERGENCY ROOM VISITS, TEACH SIGNS AND SYMPTOMS THAT PUT PATIENT AT RISK, WHEN TO NOTIFY NURSE/PHYSICIAN OF COMPLICATIONS/DECLINE, AND WHEN TO CALL 911.] Future Scheduled Test CARDIOVASC ULAR SYSTEM; RN TO ASSESS/TEACH, COLLECTIONS AGENT/ICING MACHINE OPERATOR TO OBSERVE/TEACH RELATED TO ALTERED CARDIOVASCULAR STATUS TO MINIMIZE COMPLICATIONS AND REDUCE HOSPITALIZATION. [code = CARDIOVASCULAR SYSTEM; RN TO ASSESS/TEACH, COLLECTIONS AGENT/ICING MACHINE OPERATOR TO OBSERVE/TEACH RELATED TO ALTERED CARDIOVASCULAR STATUS TO MINIMIZE COMPLICATIONS AND REDUCE HOSPITALIZATION.] Future Scheduled Test PAIN MANAG EMENT; RN TO ASSESS AND TEACH, ICING MACHINE OPERATOR/COLLECTIONS AGENT TO OBSERVE AND TEACH AND PROVIDE EDUCATION ON PAIN MANAGEMENT TECHNIQUES. [code = PAIN MANAGEMENT; RN TO ASSESS AND TEACH, ICING MACHINE OPERATOR/COLLECTIONS AGENT TO OBSERVE AND TEACH AND PROVIDE EDUCATION ON PAIN MANAGEMENT TECHNIQUES.] Future Scheduled Test DIABETES M ANAGEMENT; RN TO ASSESS AND TEACH, ICING MACHINE OPERATOR/COLLECTIONS AGENT TO OBSERVE AND TEACH INSTRUCTIONS OF DIABETIC CARE TO INCLUDE: DIET DIABETIC, SKIN CARE, SIGNS AND SYMPTOMS OF HYPO/HYPERGLYCEMIA, PROPER ADMINISTRATION OF DIABETIC MEDICATION. RN/ICING MACHINE OPERATOR/COLLECTIONS AGENT TO INSTRUCT ON DIABETIC FOOT CARE AND MONITOR FOR SKIN LESIONS ON LOWER EXTREMITIES. BLOOD GLUCOSE TESTING PRN FREQ. RN TO ASSESS AND TEACH, ICING MACHINE OPERATOR/COLLECTIONS AGENT TO OBSERVE AND TEACH PATIENT/CAREGIVER ABILITY TO PERFORM AND RECORD BLOOD GLUCOSE TESTING ORDERED AND TO REPORT ABNORMAL FINDINGS TO PHYSICIAN. RN/ICING MACHINE OPERATOR/COLLECTIONS AGENT MAY PERFORM BLOOD GLUCOSE TEST NEEDED. NO ORDER TO CHECK BGL RN/ICING MACHINE OPERATOR/COLLECTIONS AGENT TO INSTRUCT PATIENT ON IMPORTANCE OF HGBA1C MONITORING, KIDNEY FUNCTION TEST, EYE AND FOOT EXAMS. [code = DIABETES MANAGEMENT; RN TO ASSESS AND TEACH, ICING MACHINE OPERATOR/COLLECTIONS AGENT TO OBSERVE AND TEACH INSTRUCTIONS OF DIABETIC CARE TO INCLUDE: DIET DIABETIC, SKIN CARE, SIGNS AND SYMPTOMS OF HYPO/HYPERGLYCEMIA, PROPER ADMINISTRATION OF DIABETIC MEDICATION. RN/ICING MACHINE OPERATOR/COLLECTIONS AGENT TO INSTRUCT ON DIABETIC FOOT CARE AND MONITOR FOR SKIN LESIONS ON LOWER EXTREMITIES. BLOOD GLUCOSE TESTING PRN FREQ. RN TO ASSESS AND TEACH, ICING MACHINE OPERATOR/COLLECTIONS AGENT TO OBSERVE AND TEACH PATIENT/CAREGIVER ABILITY TO PERFORM AND RECORD BLOOD GLUCOSE TESTING ORDERED AND TO REPORT ABNORMAL FINDINGS TO PHYSICIAN. RN/ICING MACHINE OPERATOR/COLLECTIONS AGENT MAY PERFORM BLOOD GLUCOSE TEST NEEDED. NO ORDER TO CHECK BGL RN/ICING MACHINE OPERATOR/COLLECTIONS AGENT TO INSTRUCT PATIENT ON IMPORTANCE OF HGBA1C MONITORING, KIDNEY FUNCTION TEST, EYE AND FOOT EXAMS.] Future Scheduled Test GENITOURIN FRANCIS MANAGEMENT; RN TO ASSESS AND TEACH, COLLECTIONS AGENT/ICING MACHINE OPERATOR TO OBSERVE AND TEACH RELATED TO ALTERED GENITOURINARY STATUS TO MINIMIZE COMPLICATIONS AND REDUCE HOSPITALIZATION. [code = GENITOURINARY MANAGEMENT; RN TO ASSESS AND TEACH, COLLECTIONS AGENT/ICING MACHINE OPERATOR TO OBSERVE AND TEACH RELATED TO ALTERED GENITOURINARY STATUS TO MINIMIZE COMPLICATIONS AND REDUCE HOSPITALIZATION.] Future Scheduled Test URINARY MO LECULAR TESTING PROTOCOL UP TO 2 PRN RN/COLLECTIONS AGENT/ICING MACHINE OPERATOR VISITS MAY BE PERFORMED FOR S/S OF UTI. RN TO ASSESS, COLLECTIONS AGENT/ICING MACHINE OPERATOR TO OBSERVE INITIATION OF UTI PROTOCOL. RN/ICING MACHINE OPERATOR/COLLECTIONS AGENT TO INSTRUCT PATIENT AND/OR CAREGIVER ON S/S OF UTI TO REPORT TO RN/ICING MACHINE OPERATOR/COLLECTIONS AGENT IF NEW OR WORSENING SYMPTOMS. DRINK PLENTY OF WATER THROUGHOUT THE DAY TO MAINTAIN HYDRATION (UNLESS CONTRAINDICATED.) URINATE WHEN THE URGE IS FELT, DO NOT WAIT. WASH GENITALS DAILY. WIPE FROM FRONT TO BACK AFTER HAVING A BOWEL MOVEMENT. RN/ICING MACHINE OPERATOR/COLLECTIONS AGENT TO OBTAIN MOLECULAR URINE TESTING BY OPTION 1 OR OPTION 2 (OPTION 1) RN/ICING MACHINE OPERATOR/COLLECTIONS AGENT TO OBTAIN U/A WITH REFLEX TO UTI PANEL (MOLECULAR) VIA CLEAN CATCH URINE AND IF UNABLE TO OBTAIN MAY PERFORM AN IN AND OUT CATH. IF PATIENT HAS INDWELLING CATHETER MAY OBTAIN FROM SAMPLING PORT. (OPTION 2) RN/ICING MACHINE OPERATOR/COLLECTIONS AGENT TO OBTAIN UTI PANEL (MOLECULAR) VIA SWAB COLLECTION METHOD FROM ADULT BRIEF/DIAPER OR PAD IF PATIENT IS INCONTINENT. NOTIFY PROVIDER OF RESULTS AND OBTAIN FURTHER ORDERS. [code = URINARY MOLECULAR TESTING PROTOCOL UP TO 2 PRN RN/COLLECTIONS AGENT/ICING MACHINE OPERATOR VISITS MAY BE PERFORMED FOR S/S OF UTI. RN TO ASSESS, COLLECTIONS AGENT/ICING MACHINE OPERATOR TO OBSERVE INITIATION OF UTI PROTOCOL. RN/ICING MACHINE OPERATOR/COLLECTIONS AGENT TO INSTRUCT PATIENT AND/OR CAREGIVER ON S/S OF UTI TO REPORT TO RN/ICING MACHINE OPERATOR/COLLECTIONS AGENT IF NEW OR WORSENING SYMPTOMS. DRINK PLENTY OF WATER THROUGHOUT THE DAY TO MAINTAIN HYDRATION (UNLESS CONTRAINDICATED.) URINATE WHEN THE URGE IS FELT, DO NOT WAIT. WASH GENITALS DAILY. WIPE FROM FRONT TO BACK AFTER HAVING A BOWEL MOVEMENT. RN/ICING MACHINE OPERATOR/COLLECTIONS AGENT TO OBTAIN MOLECULAR URINE TESTING BY OPTION 1 OR OPTION 2 (OPTION 1) RN/ICING MACHINE OPERATOR/COLLECTIONS AGENT TO OBTAIN U/A WITH REFLEX TO UTI PANEL (MOLECULAR) VIA CLEAN CATCH URINE AND IF UNABLE TO OBTAIN MAY PERFORM AN IN AND OUT CATH. IF PATIENT HAS INDWELLING CATHETER MAY OBTAIN FROM SAMPLING PORT. (OPTION 2) RN/ICING MACHINE OPERATOR/COLLECTIONS AGENT TO OBTAIN UTI PANEL (MOLECULAR) VIA SWAB COLLECTION METHOD FROM ADULT BRIEF/DIAPER OR PAD IF PATIENT IS INCONTINENT. NOTIFY PROVIDER OF RESULTS AND OBTAIN FURTHER ORDERS.] Future Scheduled Test CANCER MAN AGEMENT; RN TO ASSESS AND TEACH, ICING MACHINE OPERATOR/COLLECTIONS AGENT TO OBSERVE AND TEACH AND PROVIDE EDUCATION ON CANCER. [code = CANCER MANAGEMENT; RN TO ASSESS AND TEACH, ICING MACHINE OPERATOR/COLLECTIONS AGENT TO OBSERVE AND TEACH AND PROVIDE EDUCATION ON CANCER.] Future Scheduled Test FALL REDUC TION MANAGEMENT; RN TO ASSESS AND OBSERVE, COLLECTIONS AGENT/ICING MACHINE OPERATOR TO OBSERVE FALL RISK FACTORS AND EDUCATE PATIENT/CAREGIVER ON STRATEGIES TO MINIMIZE THE RISK OF FALLING. [code = FALL REDUCTION MANAGEMENT; RN TO ASSESS AND OBSERVE, COLLECTIONS AGENT/ICING MACHINE OPERATOR TO OBSERVE FALL RISK FACTORS AND EDUCATE PATIENT/CAREGIVER ON STRATEGIES TO MINIMIZE THE RISK OF FALLING.] Future Scheduled Test HOME HEALT H AIDE SERVICE FOR ASSISTANCE WITH PERSONAL CARE, HYGIENE AND ACTIVITIES OF DAILY LIVING. [code = HOME HEALTH AIDE SERVICE FOR ASSISTANCE WITH PERSONAL CARE, HYGIENE AND ACTIVITIES OF DAILY LIVING.] Future Scheduled Test PRN VISITS ; NUMBER OF RN/COLLECTIONS AGENT/ICING MACHINE OPERATOR VISITS: 1 RN/COLLECTIONS AGENT/ICING MACHINE OPERATOR TO PERFORM: CHLOROBUTADIENE SCRUBBER OPERATOR FOR THE FOLLOWING REASONS: URINE MOLECULAR [code = PRN VISITS; NUMBER OF RN/COLLECTIONS AGENT/ICING MACHINE OPERATOR VISITS: 1 RN/COLLECTIONS AGENT/ICING MACHINE OPERATOR TO PERFORM: CHLOROBUTADIENE SCRUBBER OPERATOR FOR THE FOLLOWING REASONS: URINE MOLECULAR ] [...] End Date/Time Encounter Type Admission Type Attending [facility] Care Department Encounter ID Discharge Date Discharge Status Discharge Condition Discharge Reason Percent Goals Met 2024-10-29 00:00:00 2024-12-27 00:00:00 Outpatient NEW ADMISSION [facility] [id number] [id number]
--- OUTSIDE RECORDS SUMMARY | 2024-11-25 16:57 | XMS_ITS | CONTINUITY OF CARE DOCUMENT ---
Author Name jimmy marquez Address Unknown Organization [facility] Address [id number] [place] [address] [address] [place] [address] Phone [phone] Care Team Providers Care Tool Grinding Technician Name Role Phone jimmy marquez Unavailable Unavailable
[2024-11-25] MEDS: SODIUM CHLORIDE 0.9% IV 500 ML 999 ML IV CONT (17:03)
[2024-11-25 17:05] LABS: Basophils Percent Auto 0.3 % (0.2-1.2); Hematocrit 30.7 % (42.0-52.0); Hemoglobin 9.2 g/dL (14.0-18.0); Immature Granulocyte Absolute 0.13 K/mm3 (0.00-0.031); Immature Granulocyte Percent A 1.7 % (0-0.5); Lymphocytes Absolute Auto 1.16 K/mm3 (0.9-3.2); Lymphocytes Percent Auto 14.8 % (18.3-44.2); Mean Corpuscular Hemoglobin 26.3 pg (26-34); Mean Corpuscular Volume 87.7 fl (80-100); Mean Platelet Volume 8.8 fl (7.4-10.4); Monocytes Absolute Auto 0.4 K/mm3 (0.1-0.6); Monocytes Percent Auto 4.7 % (2.6-8.5); Neutrophils Absolute Auto 6.2 K/mm3 (1.3-6.7); Neutrophils Percent Auto 78.5 % (45.5-73.1); Nucleated Red Blood Cells Perc 0.4 % (0.0-0.2); Platelet Count Result 320 k/mm3 (150-375); Red Cell Distribution Width 26.1 % (11.5-14.5); White Blood Count 7.8 K/mm3 (4.5-10.0)
[2024-11-25] MEDS: METOPROLOL TARTRATE 25 MG TABLET PO (17:05)
[2024-11-25 17:16] LABS: Anisocytosis 1+; Magnesium 1.7 mg/dL (1.6-2.3); Ovalocytes 1+; Platelet Estimate Adequate (Adequate); Schistocytes None Seen
[2024-11-25 17:17] LABS: Alanine Aminotransferase 23 U/L (6-50); Albumin Level 3.8 g/dL (3.5-5.1); Alkaline Phosphatase 973 U/L (38-126); Anion Gap 10 mmol/L (4-12); Aspartate Amino Transferase 24 U/L (17-59); Bilirubin,Total 0.3 mg/dL (0.2-1.3); Blood Urea Nitrogen 28 mg/dL (9-20); Calcium 7.1 mg/dL (8.4-10.2); Carbon Dioxide 19 mmol/L (22-30); Chloride 108 mmol/L (98-107); Estimated CRCL calculation 48 ml/min; Estimated Glomerular Filt Rate > 60; Glucose 145 mg/dL (65-110); Lipase 221 U/L (23-300); Potassium 4.7 mmol/L (3.4-5.0); Sodium 137 mmol/L (137-145)
[2024-11-25 17:19] LABS: INR 1.1; Partial Thromboplastin Time 25.4 Seconds (22.3-36.8); Prothrombin Time 14.2 Seconds (11.1-14.7)
[2024-11-25 17:28] LABS: Troponin I < 0.012 ng/mL (0.000-0.034)
--- NOTE | 2024-11-25 17:49 | ED_ITS ---
HPI - Arrhythmia/Palpitations General Chief Complaint: Arrhythmia/Palpitations Stated Complaint: Afib, dizziness, vision changes Time Seen by Provider: 11/25/24 16:47 Source: patient and family Mode of arrival: ambulatory Limitations: language barrier History of Present Illness HPI narrative: This is a 79-year-old male, with history of metastatic prostate cancer, AFib on metoprolol who presents to the emergency department complaining of palpitations for the past 2 days. Patient states he feels palpitations with associated lightheadedness though it is not persistent. He denies associated chest pain. He has no other complaints at this time. A home health nurse noted an elevated heart rate and recommended evaluation. The patient's son at bedside states he was previously on warfarin but was stopped due to GI bleed. Related Data Home Medications ?Medication ?Instructions ?Recorded ?Confirmed ?Last Taken ?Type flecainide 100 mg tablet 100 mg PO BID 06/04/19 11/19/24 06/09/22 History metoprolol succinate 25 mg 25 mg PO HS 08/17/22 11/19/24 Unknown History tablet,extended release 24 hr cholecalciferol (vitamin D3) 125 125 mcg PO 1700 02/29/24 11/19/24 Unknown History mcg (5,000 unit) tablet (Vitamin D3) docusate sodium 100 mg capsule 100 mg PO HS 02/29/24 11/19/24 Unknown History (Colace) esomeprazole magnesium 40 mg 40 mg PO 1200 02/29/24 11/19/24 Unknown History capsule,delayed release (Nexium) ferrous sulfate 325 mg (65 mg 325 mg PO BID 02/29/24 11/19/24 Unknown History iron) tablet melatonin PO 11/19/24 11/19/24 Unknown History Allergies Allergy/AdvReac Type Severity Reaction Status Date / Time No Known Allergies Allergy Verified 11/25/24 16:38 Review of Systems 2 Review of Systems: All systems reviewed & are unremarkable except as noted in HPI and below PMFSH Past Medical History Medical History Pruritus BMI 24.0-24.9, adult Allergic drug reaction Dermatitis Pleural effusion (~08/31/24) bilateral pleural effusions 08/31/2024 treated with pleurocentesis with no malignancy in fluid. Prostate cancer PSA 0.5 on 11/10/2022. PSA 4.7 on 03/29/2023. PSA 6.1 on 05/01/2023. Prostate cancer BMI 27.0-27.9,adult Cerumen impaction Right sided abdominal pain Right inguinal pain Tubular adenoma of colon (09/19/23) tubular adenoma sigmoid colon 10/18/2023. Prostate cancer metastatic to bone PSA 0.5 on 11/10/2022. PSA 4.7 on 03/29/2023. PSA 6.1 on 05/01/2023. Hematuria Acute on chronic blood loss anemia Rectal bleeding Benign paroxysmal positional vertigo due to bilateral vestibular disorder Dermatitis of face (~09/23/22) Essential hypertension Rib pain on left side (~07/09/22) Diffuse metastatic lesions of the spine, ribs, scapula with possible non displaced anterior lateral 9th rib fracture on x-ray 07/19/2022. Chronic low back pain X-ray 07/19/2022 with degenerative changes of the lumbar spine with diffuse sclerotic metastatic lesions. Paroxysmal atrial fibrillation Overweight (BMI 25.0-29.9) At high risk for falls Bone metastases Postoperative ileus Atrial fibrillation Iron deficiency anemia, unspecified total iron 31 with 7% saturation and ferritin 44 with hemoglobin 12.8 on 01/18/2021 Eosinophilia (~11/02/20) eosinophil count 1248 on 11/02/2020 Anemia (11/02/20) hemoglobin 12.7 on 11/02/2020. Hemoglobin 12.5 on 11/10/2022. Elevated PSA, between 10 and less than 20 ng/ml (11/02/20) PSA 16.3 on 11/02/2020 Tobacco use disorder, continuous 5 or 6 cigarettes daily CAD (coronary artery disease), [place] coronary artery Eczema Folliculitis Tinea cruris COVID-19 virus detected (~02/16/20) Obstructive sleep apnea on CPAP does not use CPAP Chronic anxiety Keloid scar Chronic pain of left knee Mixed hyperlipidemia Nocturia Type 2 diabetes mellitus without complication, without long-term current use of insulin Glucose 173 on 11/10/2022. Surgical History Surgical History Hx of right inguinal hernia repair History of hernia repair Family History Family History Mother Family history of malignant neoplasm Father Family history of malignant neoplasm Social History Social History Social History: Caffeine-daily Smoking packs per day: 0.2 Smoking cigarettes per day: 4.0 Years smoked: 60 Smoking pack-years: 12.00 Smoking status: Former smoker Alcohol intake: never Alcohol use details: HEAVIER DRINKER - QUIT EARLY Substance use: never Substance use type: does not use Do You Feel Safe in your Home?: Yes Lack of Transportation: No Lack of Food: Never True Current Housing: I Have Housing Concerned About Future Housing: No Difficulty Paying Gas/Electric Bills: No Difficulty Paying for Meds: No Currently Unemployed: No Education: Grade School Difficulty w/ Childcare or Family Care: No Living arrangements: with family Additional living arrangements comments: - ROSA MARIA Spiritual care concerns: No Exam 2 Narrative: GENERAL: Well-developed, well-nourished, and in no acute distress. HEAD: Normocephalic, atraumatic. EYES: PERRLA and EOMI. ENT: Nares clear, no rhinorrhea or epistaxis. Mucous membranes moist. Oropharynx without tonsillar hypertrophy exudate or other lesions. CHEST: Clear to auscultation. No respiratory distress. No wheezes rales or rhonchi HEART: Regular rate and rhythm. No murmur heard. Normal peripheral pulses. ABDOMEN: Soft, nontender, nondistended, normal active bowel sounds. EXTREMITIES: Normal range of motion. No edema. SKIN: Warm, dry, no rash. NEURO: Alert and oriented x3. No focal deficit. Moving all 4 limbs spontaneously PSYCH: Normal mood and affect. Course Course Emergency Course: 16:50 - The patient was noted to be in AFib with RVR on the monitor with rate reaching the 130s. Prior to demonstration medications, he spontaneously converted to sinus rhythm. 18:42 - CBC demonstrates an anemia with hemoglobin at 9.2 at baseline with otherwise no other acute changes. Chemistries demonstrate slightly decreased bicarb of 19, calcium of 7.1 and alk-phos of 973 but is otherwise unremarkable, including a negative troponin. Chest x-ray shows Subsegmental atelectasis/consolidation in the left lung base. Patchy airspace opacities in the bilateral lower lungs may represent edema or infection. Moderate left and small right pleural effusions. Osseous metastases concerning for pneumonia. I discussed these findings with the patient and his son recommendation for admission and IV antibiotics. There was understanding and are comfortable with the plan. All questions answered to their satisfaction. I discussed the patient with hospitalist, MACK Kaba who accepts admission. Vital Signs Vital signs: Vital Signs Temperature 98.1 F 11/25/24 16:42 Pulse Rate 131 H 11/25/24 16:42 Respiratory Rate 24 H 11/25/24 16:42 Blood Pressure 123/78 11/25/24 16:42 Pulse Oximetry 100 11/25/24 16:42 Oxygen Delivery Room Air 11/25/24 16:42 Temperature 98.1 F 11/25/24 16:42 Pulse Rate 78 11/25/24 18:24 Respiratory Rate 16 11/25/24 18:24 Blood Pressure 132/71 11/25/24 18:24 Pulse Oximetry 100 11/25/24 18:24 Oxygen Delivery Room Air 11/25/24 16:42 MDM - Arrhythmia/Palpitations MDM Narrative Medical decision making narrative: Plan: Labs, IV fluids, imaging, EKG, reassess Differential Diagnosis Differential diagnosis: Likely palpitations, anxiety, artial fibrillation, artial flutter, supraventricular tachycardia and other (Pneumonia, pneumothorax, metabolic abnormality, medication noncompliance, other) Lab Data 11/25/24 17:00 11/25/24 17:00 Labs: Lab Results 11/25/24 Range/Units 17:00 WBC 7.8 (4.5-10.0) K/mm3 RBC 3.50 L (4.6-6.20) M/mm3 Hgb 9.2 L (14.0-18.0) g/dL Hct 30.7 L (42.0-52.0) % MCV 87.7 (80-100) fl MCH 26.3 (26-34) pg MCHC 30.0 L (32-36) g/dl RDW 26.1 H (11.5-14.5) % Plt Count 320 (150-375) k/mm3 MPV 8.8 (7.4-10.4) fl Immature Gran % (Auto) 1.7 H (0-0.5) % Neut % (Auto) 78.5 H (45.5-73.1) % Lymph % (Auto) 14.8 L (18.3-44.2) % [place] % (Auto) 4.7 (2.6-8.5) % Eos % (Auto) 0.0 (0-4.4) % Baso % (Auto) 0.3 (0.2-1.2) % Lymph # (Auto) 1.16 (0.9-3.2) K/mm3 [place] # (Auto) 0.4 (0.1-0.6) K/mm3 Eos # (Auto) 0.0 (0-0.3) K/mm3 Baso # (Auto) 0.0 (0.0-0.1) K/mm3 Abs Immat Gran (auto) 0.13 H (0.00-0.031) K/mm3 Absolute Neuts (auto) 6.2 (1.3-6.7) K/mm3 Absolute Nucleated RBC 0.030 H (0.0-0.012) K/mm3 Band Neutrophils % Not Reportable Nucleated RBC % 0.4 H (0.0-0.2) % Platelet Estimate Adequate (Adequate) Anisocytosis 1+ Ovalocytes 1+ Schistocytes None seen PT 14.2 (11.1-14.7) Seconds INR 1.1 APTT 25.4 (22.3-36.8) Seconds Sodium 137 (137-145) mmol/L Potassium 4.7 (3.4-5.0) mmol/L Chloride 108 H (98-107) mmol/L Carbon Dioxide 19 L (22-30) mmol/L Anion Gap 10 (4-12) mmol/L BUN 28 H (9-20) mg/dL Creatinine 1.06 (0.7-1.3) mg/dL Estim Creat Clear Calc 48 ml/min Estimated GFR > 60 (59 - ) Glucose 145 H (65-110) mg/dL Calcium 7.1 L (8.4-10.2) mg/dL Magnesium 1.7 (1.6-2.3) mg/dL Total Bilirubin 0.3 (0.2-1.3) mg/dL AST 24 (17-59) U/L ALT 23 (6-50) U/L Alkaline Phosphatase 973 H (38-126) U/L Troponin I < 0.012 (0.000-0.034) ng/mL Total Protein 7.0 (6.3-8.2) g/dL Albumin 3.8 (3.5-5.1) g/dL Lipase 221 (23-300) U/L ECG Data EKG #1: Attestation: I personally reviewed and interpreted this ECG as follows: ECG completion date: 11/25/24 ECG completion time: 16:45 Interpretation: AFib with RVR, rate 123, normal axis, no ST segment elevations or T-wave inversions concerning for ischemia, otherwise normal intervals with QTC of 372. Compared to EKG done in August 2024, AFib is new. EKG #2: Attestation: I personally reviewed and interpreted this ECG as follows: ECG completion date: 11/25/24 ECG completion time: 16:50 Prior ECG tracings: available for review Interpretation: Sinus rhythm, rate 65, normal axis, no ST segment elevations or T-wave inversions concerning for ischemia, normal intervals with QTC of 392. Discharge Plan Discharge Clinical Impression: Atrial fibrillation with RVR, Hypocalcemia Pneumonia Qualifiers: Pneumonia type: due to unspecified organism Laterality: bilateral Lung location: lower lobe of lung Qualified Code(s): J18.9 - Pneumonia, unspecified organism Patient Disposition: Still a Patient Condition: Serious Patient Language: Greek Prescriptions: No Action melatonin PO clotrimazole 1 % solution 1 applic topical . q.h.s. Qty: 30 2RF Rx Instructions: put 4 drops in left ear with ear up towards the ceiling for 30 seconds after q.h.s. cholecalciferol (vitamin D3) [Vitamin D3] 125 mcg (5,000 unit) Tablet 125 mcg PO 1700 ferrous sulfate 325 mg (65 mg iron) tablet 325 mg PO BID esomeprazole magnesium [Nexium] 40 mg capsule,delayed release(DR/EC) 40 mg PO 1200 docusate sodium [Colace] 100 mg capsule 100 mg PO HS flecainide 100 mg tablet 100 mg PO BID (DME) OneTouch Verio test strips Strip See Rx Instructions .Route Qty: 100 3RF Rx Instructions: to check blood Sugar once daily (DME) lancets [OneTouch Delica Lancets] 30 gauge misc See Rx Instructions .Route Qty: 100 3RF Rx Instructions: use to check blood sugar once daily metoprolol succinate 25 mg tablet extended release 24 hr 25 mg PO HS Patient Comments: started by hoop bending machine operator 08/17/2022. polyethylene glycol 3350 [Miralax] 17 gram/dose powder 17 g PO BID PRN (Reason: constipation) Qty: 850 11RF Lokelma 10 gram powder in packet 10 g PO DAILY Qty: 30 11RF Rx Instructions: mix with 4 oz of liquid and take once daily for high potassium morphine 15 mg tablet 15 mg PO BID PRN (Reason: pain) Qty: 60 0RF Amitiza 24 mcg capsule 24 mcg PO BID Qty: 60 11RF triamcinolone acetonide 0.5 % cream 1 applic topical DAILY Qty: 30 1RF Rx Instructions: apply to rash once daily until clear but no longer than 2 weeks at a time oxycodone-acetaminophen [Percocet] 10-325 mg tablet 1 tablet PO Q6H PRN (Reason: pain) Qty: 120 0RF prednisone 20 mg tablet 20 mg PO . q.a.m. Qty: 7 0RF Follow-up/Referrals: Saw Ga MD [Primary Care Provider] - Time of Disposition: 16:42
[2024-11-25] MEDS: CALCIUM GLUCONATE 1,000 MG/10 ML VIAL 1000 MG IV PUSH (17:50)
[2024-11-25] MEDS: CEFEPIME 2 GM/NS 50 ML 2 GM/50 ML BAG IVPB (19:24)
--- NOTE | 2024-11-25 19:53 | ECG_ITS ---
Test Date: 2024-11-25 19:55:17 Measurements Intervals [place] Rate: 63 P: 49 MS: 159 QRS: 37 QRSD: 85 T: 47 QT: 423 QTc: 435 Interpretive Statements SINUS RHYTHM WITH OCCASIONAL ATRIAL PREMATURE COMPLEXES OTHERWISE NORMAL ECG Compared to ECG 11/25/2024 16:50:22 No significant changes Electronically Signed On 11-26-2024 07:19:28 CDT by Ori Alonso M.D.
--- NOTE | 2024-11-25 20:25 | P.HP_ITS ---
H&P: HPI History of Present Illness Date/Time: 11/25/24 20:25 Chief Complaint: Palpitations Narrative: This is a 79-year-old speaking male patient who comes to the emergency room with complaints of having palpitations. For the past 2 days patient has had intermittent palpitations and lightheadedness. He is currently on palliative care from his metastatic prostate cancer with Mets to the bone and his home health nurse checked on him today and noted an abnormal, elevated heart rate and sent him to the emergency room. Patient previously was on warfarin for anticoagulation due to GI bleed it was discontinued. Patient does take chronic flecainide for his history of AFib. Patient has a chronic past medical history of pleural effusion, prostate cancer with Mets to the bone, BPV, chronic low back pain, paroxysmal atrial fibrillation, iron deficiency anemia, coronary artery disease, anxiety, hyperlipidemia and type 2 diabetes mellitus. After arrival to the emergency room an IV was placed as patient was going to begin treatment for AFib, however he self converted and is maintained in a normal rhythm since. In the emergency room workup was performed including labs, EKG and imaging. Chest x-ray showing subsegmental atelectasis/consolidation in the left lung base with patchy airspace opacities in the bilateral lower lungs representing edema or infection. There is moderate left and small right pleural effusions with multiple osseous metastasis. Initial EKG showing AFib RVR with rate in the 130s. After self converted patient has been normal sinus rhythm with a rate in the 60s. Labs arm showing normal troponin, normal magnesium 1.7, CBC consistent with patient's history of anemia, metabolic panel unremarkable. Patient received IV fluids in the emergency room, IV Push Lopressor and doxycycline and cefepime empirically for concern of a developing pneumonia as evidenced by chest x-ray. Patient will be admitted in this current setting for further observation and monitoring on telemetry. Blood cultures x2 pending. Review of Systems Review of Systems: All systems reviewed & are unremarkable except as noted in HPI and below [facility] Past Medical History Medical History (Updated 11/25/24 @ 20:42 by ALEX oRsado) Chronic pain Metastatic cancer Abnormal chest x-ray Pruritus BMI 24.0-24.9, adult Allergic drug reaction Dermatitis Pleural effusion (~08/31/24) bilateral pleural effusions 08/31/2024 treated with pleurocentesis with no malignancy in fluid. Prostate cancer PSA 0.5 on 11/10/2022. PSA 4.7 on 03/29/2023. PSA 6.1 on 05/01/2023. Prostate cancer BMI 27.0-27.9,adult Cerumen impaction Right sided abdominal pain Right inguinal pain Tubular adenoma of colon (09/19/23) tubular adenoma sigmoid colon 10/18/2023. Prostate cancer metastatic to bone PSA 0.5 on 11/10/2022. PSA 4.7 on 03/29/2023. PSA 6.1 on 05/01/2023. Hematuria Acute on chronic blood loss anemia Rectal bleeding Benign paroxysmal positional vertigo due to bilateral vestibular disorder Dermatitis of face (~09/23/22) Essential hypertension Rib pain on left side (~07/09/22) Diffuse metastatic lesions of the spine, ribs, scapula with possible non displaced anterior lateral 9th rib fracture on x-ray 07/19/2022. Chronic low back pain X-ray 07/19/2022 with degenerative changes of the lumbar spine with diffuse sclerotic metastatic lesions. Paroxysmal atrial fibrillation Overweight (BMI 25.0-29.9) At high risk for falls Bone metastases Postoperative ileus Atrial fibrillation Iron deficiency anemia, unspecified total iron 31 with 7% saturation and ferritin 44 with hemoglobin 12.8 on 01/18/2021 Eosinophilia (~11/02/20) eosinophil count 1248 on 11/02/2020 Anemia (11/02/20) hemoglobin 12.7 on 11/02/2020. Hemoglobin 12.5 on 11/10/2022. Elevated PSA, between 10 and less than 20 ng/ml (11/02/20) PSA 16.3 on 11/02/2020 Tobacco use disorder, continuous 5 or 6 cigarettes daily CAD (coronary artery disease), [place] coronary artery Eczema Folliculitis Tinea cruris COVID-19 virus detected (~02/16/20) Obstructive sleep apnea on CPAP does not use CPAP Chronic anxiety Keloid scar Chronic pain of left knee Mixed hyperlipidemia Nocturia Type 2 diabetes mellitus without complication, without long-term current use of insulin Glucose 173 on 11/10/2022. Surgical History Surgical History Hx of right inguinal hernia repair History of hernia repair Family History Family History Mother Family history of malignant neoplasm Father Family history of malignant neoplasm Social History Social History Social History: Caffeine-daily Smoking packs per day: 0.2 Smoking cigarettes per day: 4.0 Years smoked: 60 Smoking pack-years: 12.00 Smoking status: Former smoker Alcohol intake: never Alcohol use details: HEAVIER DRINKER - QUIT EARLY Substance use: never Substance use type: does not use Do You Feel Safe in your Home?: Yes Lack of Transportation: No Lack of Food: Never True Current Housing: I Have Housing Concerned About Future Housing: No Difficulty Paying Gas/Electric Bills: No Difficulty Paying for Meds: No Currently Unemployed: No Education: Grade School Difficulty w/ Childcare or Family Care: No Living arrangements: with family Additional living arrangements comments: - ROSA MARIA Spiritual care concerns: No Meds Home Medications and Allergies Home Medications ?Medication ?Instructions ?Recorded ?Confirmed ?Type flecainide 100 mg tablet 100 mg PO BID 06/04/19 11/19/24 History blood sugar diagnostic (OneTouch #100 ea 02/22/22 11/19/24 Rx Verio test strips) lancets 30 gauge (OneTouch Delica #100 ea 02/22/22 11/19/24 Rx Lancets) metoprolol succinate 25 mg 25 mg PO HS 08/17/22 11/19/24 History tablet,extended release 24 hr cholecalciferol (vitamin D3) 125 125 mcg PO 1700 02/29/24 11/19/24 History mcg (5,000 unit) tablet (Vitamin D3) docusate sodium 100 mg capsule 100 mg PO HS 02/29/24 11/19/24 History (Colace) esomeprazole magnesium 40 mg 40 mg PO 1200 02/29/24 11/19/24 History capsule,delayed release (Nexium) ferrous sulfate 325 mg (65 mg 325 mg PO BID 02/29/24 11/19/24 History iron) tablet polyethylene glycol 3350 17 17 g PO BID PRN constipation #850 10/02/24 04/30/25 Rx gram/dose oral powder (Miralax) grams sodium zirconium cyclosilicate 10 10 g PO DAILY #30 ea 05/26/24 11/19/24 Rx gram oral powder packet (Lokelma) morphine 15 mg immediate release 15 mg PO BID PRN pain #60 tabs 06/03/24 11/19/24 Rx tablet lubiprostone 24 mcg capsule 24 mcg PO BID #60 caps 10/15/24 11/19/24 Rx (Amitiza) oxycodone-acetaminophen 10 mg-325 1 tablet PO Q6H PRN pain #120 tabs 11/11/24 11/19/24 Rx mg tablet (Percocet) triamcinolone acetonide 0.5 % 1 applic topical DAILY #30 grams 11/11/24 11/19/24 Rx topical cream melatonin PO 11/19/24 11/19/24 History prednisone 20 mg tablet 20 mg PO . q.a.m. #7 tabs 11/20/24 Rx clotrimazole 1 % topical solution 1 applic topical . q.h.s. fungal 11/24/24 Rx external otitis #30 mL Allergies Allergy/AdvReac Type Severity Reaction Status Date / Time No Known Allergies Allergy Verified 11/25/24 16:38 Vital Signs Vital Signs - 24 hr 11/25/24 16:42 11/25/24 17:05 11/25/24 18:24 Temperature 98.1 F Pulse Rate 131 H 144 H 78 Respiratory Rate 24 H 16 Blood Pressure 123/78 132/71 Pulse Oximetry 100 100 Oxygen Delivery Room Air Exam Const: General: comfortable and no acute distress Other: Pleasant, elderly male patient lying supine at this time in no acute distress. Eyes: General: appearance normal, both eyes and all related structures Sclera: sclerae normal Pupils: Equal, round and reactive pupils present EOM: EOMs intact bilaterally Neck: Neck: supple and no JVD Lymphatic: lymphadenopathy not noted Chest: Other: Nontender Resp: Effort & Inspection: normal respiratory effort Auscultation: diminished lung sounds bilateral (Bases) Cardio: Rate: regular rate Rhythm: regular rhythm Heart sounds: no gallops, Murmur heart sound present and no rubs Other: Murmur grade 2 systolic GI: Inspection: non-distended GI Palp: Yes Soft to palpation and No Tenderness to palpation present (GI) Auscultation: normal bowel sounds Skin: General skin exam: normal color and no rashes or lesions noted Lesions: no lesions noted Rashes: no rashes noted Wounds: no wounds Neuro: Speech: normal speech Motor exam (neuro): 5/5 motor strength present throughout and Normal motor muscle tone present throughout Sensory Exam: No normal sensation Extrem: General: normal to inspection, no edema and no pedal edema Other: Freely and equally moves all extremities well without deficit Psych: Mental Status: mental status grossly normal Affect: normal affect H&P: Results Labs Labs: Short CBC 11/25/24 Range/Units 17:00 WBC 7.8 (4.5-10.0) K/mm3 Hgb 9.2 L (14.0-18.0) g/dL Hct 30.7 L (42.0-52.0) % Plt Count 320 (150-375) k/mm3 BMP 11/25/24 17:00 Sodium 137 Potassium 4.7 Chloride 108 H Carbon Dioxide 19 L BUN 28 H Creatinine 1.06 Glucose 145 H Calcium 7.1 L Cardiac Enzymes 11/25/24 Range/Units 17:00 Troponin I < 0.012 (0.000-0.034) ng/mL Liver Function 11/25/24 Range/Units 17:00 Total Bilirubin 0.3 (0.2-1.3) mg/dL AST 24 (17-59) U/L ALT 23 (6-50) U/L Alkaline Phosphatase 973 H (38-126) U/L Albumin 3.8 (3.5-5.1) g/dL Assessment and Plan Assessment and plan (1) Atrial fibrillation with RVR: Code(s): I48.91 - Unspecified atrial fibrillation Status: Acute Assessment and Plan: * Telemetry * Self converted once right to ER * Consider diltiazem if converts back * Consider consulting Cardiology if patient reverted back into AFib. * Received Lopressor in ER * Not currently anticoagulated, will order SCDs and reconsider pharmacological anticoagulation if symptoms recur. * Check TSH with morning labs (2) Abnormal chest x-ray: Code(s): R93.89 - Abnormal findings on diagnostic imaging of other specified body structures Status: Acute Assessment and Plan: * Chest x-ray showing concerning for potentially developing consolidation. * Blood cultures pending x2 * No leukocytosis. * Patient received doxy and cefepime in the ER, will continue at this time. * Monitor and trend labs and vitals (3) Metastatic cancer: Code(s): C79.9 - Secondary malignant neoplasm of unspecified site Status: Chronic Assessment and Plan: * Patient with metastatic adenocarcinoma of the prostate status post prostatectomy with PSA progression and bone metastasis that has been r efractory to chemotherapy to this point. Patient's oncologist is Dr. Carlin at [facility]. It is noted in the most recent oncology note that patient specifically does not want to know the details of his cancer diagnosis nor do his children. * Currently receiving palliative care. * Will provide pain medications for patient as needed. (4) Chronic pain: Code(s): G89.29 - Other chronic pain Status: Chronic Assessment and Plan: * See 3. Quality VTE Prophylaxis VTE prophylaxis: mechanical ordered Hospitalist MIPS Advance Care Plan I have confirmed that the patient's Advanced Care Plan is present, code status is documented, or surrogate decision maker is listed in patient medical record.: Yes Medication Reconciliation I have utilized all available resources to obtain, update and review the patients current medications (includes all prescriptions, OTC, herbals, cannabis, and nutritional supplements).: Yes
[2024-11-25] MEDS: DOXYCYCLINE HYCLATE 100 MG TABLET PO (20:44)
[2024-11-25 21:07] LABS: Troponin I < 0.012 ng/mL (0.000-0.034)
--- NOTE | 2024-11-25 21:39 | PC.NURSE ---
Metoprolol not given. PRN dose not needed in ED.
--- NOTE | 2024-11-25 21:43 | ADMGEN ---
This patient, Ej Steen, was admitted to IMU Room 200-01. Patient/family oriented to hospital policies and general routines including ID bracelet, bed and alarms, visiting hours, pain management, procedures, bathroom and other care routines, personal items, smoking policy, room service/diet, and visiting hours. Information on how to activate the Rapid Response Team has been discussed. Patient/Family are encouraged to report perceived risks to care and to ask questions if they do not understand what they are told or what they should do.
[2024-11-25 23:05] LABS: Troponin I < 0.012 ng/mL (0.000-0.034)
[2024-11-26] VITALS (22 sets, daily range): BP systolic 106–140; BP diastolic 41–69; PULSE 63–158; RESP 16–20; TEMP 36.3–36.9; O2SAT 95–100
[2024-11-26 04:53] LABS: Basophils Percent Auto 0.3 % (0.2-1.2); Eosinophils Percent Auto 0.2 % (0-4.4); Hemoglobin 7.7 g/dL (14.0-18.0); Immature Granulocyte Absolute 0.07 K/mm3 (0.00-0.031); Immature Granulocyte Percent A 1.2 % (0-0.5); Lymphocytes Absolute Auto 1.27 K/mm3 (0.9-3.2); Lymphocytes Percent Auto 21.8 % (18.3-44.2); Mean Corpuscular HGB Conc 29.6 g/dl (32-36); Mean Corpuscular Hemoglobin 25.7 pg (26-34); Mean Corpuscular Volume 86.7 fl (80-100); Mean Platelet Volume 8.9 fl (7.4-10.4); Monocytes Absolute Auto 0.5 K/mm3 (0.1-0.6); Monocytes Percent Auto 9.3 % (2.6-8.5); Neutrophils Absolute Auto 3.9 K/mm3 (1.3-6.7); Neutrophils Percent Auto 67.2 % (45.5-73.1); Nucleated Red Blood Cells Perc 0.3 % (0.0-0.2); Platelet Count Result 289 k/mm3 (150-375); White Blood Count 5.8 K/mm3 (4.5-10.0)
[2024-11-26 05:11] LABS: INR 1.1; Partial Thromboplastin Time 26.3 Seconds (22.3-36.8); Prothrombin Time 14.7 Seconds (11.1-14.7)
[2024-11-26 05:16] LABS: Anion Gap 8 mmol/L (4-12); Blood Urea Nitrogen 22 mg/dL (9-20); Calcium 6.5 mg/dL (8.4-10.2); Carbon Dioxide 17 mmol/L (22-30); Chloride 113 mmol/L (98-107); Estimated CRCL calculation 61 ml/min; Estimated Glomerular Filt Rate > 60; Glucose 81 mg/dL (65-110); Magnesium 1.5 mg/dL (1.6-2.3); Sodium 138 mmol/L (137-145)
[2024-11-26 05:33] LABS: Anisocytosis 1+; Band Neutrophils Percent 0 % (0-6); Hypochromasia 1+; Ovalocytes 1+; Platelet Estimate Adequate (Adequate); Schistocytes None Seen
[2024-11-26 05:53] LABS: Thyroid Stimulating Hormone Reflex 0.597 uIU/mL (0.465-4.68)
[2024-11-26] MEDS: CALCIUM GLUC 1,000 MG/NS 50 ML 1,000 MG/50 ML BAG 100 MG IVPB (08:25)
[2024-11-26] MEDS: CEFEPIME 1 GM/NS 50 ML 1 GM/50 ML BAG IVPB ×2 (08:30→21:01)
[2024-11-26] MEDS: LOSARTAN POTASSIUM 50 MG TABLET PO (08:37)
[2024-11-26] MEDS: FUROSEMIDE 20 MG TABLET PO (08:37)
[2024-11-26] MEDS: SODIUM CHLORIDE 0.9% IV 500 ML 10 ML (08:38)
[2024-11-26] MEDS: metFORMIN HCL XR 500 MG TAB.SR.24H 1000 MG PO ×2 (08:38→15:59)
[2024-11-26 08:40] LABS: Hemoglobin A1C 5.6 % (<5.7)
[2024-11-26 08:42] LABS: Alanine Aminotransferase 19 U/L (6-50); Albumin Level 3.3 g/dL (3.5-5.1); Alkaline Phosphatase 806 U/L (38-126); Anion Gap 9 mmol/L (4-12); Aspartate Amino Transferase 21 U/L (17-59); Bilirubin,Total 0.4 mg/dL (0.2-1.3); Blood Urea Nitrogen 21 mg/dL (9-20); Calcium 6.6 mg/dL (8.4-10.2); Carbon Dioxide 19 mmol/L (22-30); Chloride 111 mmol/L (98-107); Estimated CRCL calculation 60 ml/min; Estimated Glomerular Filt Rate > 60; Glucose 124 mg/dL (65-110); Potassium 3.7 mmol/L (3.4-5.0); Sodium 139 mmol/L (137-145)
[2024-11-26] MEDS: MAGNESIUM SULF 2 GM/WATER 50ML 2 GM/50 ML BAG IVPB (09:05)
--- NOTE | 2024-11-26 09:30 | ECG_ITS ---
Test Date: 2024-11-26 09:37:33 Measurements Intervals [place] Rate: 140 P: 0 KS: 0 QRS: 28 QRSD: 77 T: 0 QT: 277 QTc: 424 Interpretive Statements ATRIAL FIBRILLATION WITH RAPID VENTRICULAR RESPONSE NONSPECIFIC ST & T-WAVE ABNORMALITY ABNORMAL RHYTHM ECG Compared to ECG 11/25/2024 19:55:17 Sinus rhythm no longer present Electronically Signed On 11-26-2024 14:04:41 CDT by Chiquis Goff M.D.
--- NOTE | 2024-11-26 10:42 | P.PNIM_ITS ---
Progress Note: A&P Assessment and Plan (1) Atrial fibrillation with RVR: Code(s): I48.91 - Unspecified atrial fibrillation Status: Acute Assessment and Plan: * Telemetry * Self converted once right to ER * Consider diltiazem if converts back * Cardiology consult placed. Patient having intermittent episodes of atrial fibrillation. Patient given an additional Metoprolol Succinate 25 mg PO. * Received Lopressor in ER * Not currently anticoagulated, will order SCDs and reconsider pharmacological anticoagulation if symptoms recur. * TSH 0.597 * Echo ordered. (2) Abnormal chest x-ray: Code(s): R93.89 - Abnormal findings on diagnostic imaging of other specified body structures Status: Acute Assessment and Plan: * Chest x-ray showing concerning for potentially developing consolidation. * Blood cultures pending x2 * No leukocytosis. * Patient received doxy and cefepime in the ER, will continue at this time. 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 Patient's oncologist is Dr. Carlin at [facility]. It is noted in the most recent oncology note that patient specifically does not want to know the details of his cancer diagnosis nor do his children. * Currently receiving palliative care. * Will provide pain medications for patient as needed. (4) Chronic pain: Code(s): G89.29 - Other chronic pain Status: Chronic Assessment and Plan: * See 3. (5) Hypomagnesemia: Code(s): E83.42 - Hypomagnesemia Status: Acute Assessment and Plan: * Magnesium 1.5. * Magnesium Sulfate 2 gram IVPB given. Repeat magnesium 1.9. * Give an additional Magnesium Sulfate 1 gram IVPB x 1. * Keep magnesium >2. * Trend levels. (6) Hypocalcemia: Code(s): E83.51 - Hypocalcemia Status: Acute Assessment and Plan: * Calcium level 6.6. * Calcium Gluconate 1 gram ivpb x1 given. * Trend levels. Subjective Date/time seen: 11/26/24 10:42 Interval history: Patient sitting up in bed. Son at bedside. Patient reports that when his heart rate goes up he will get a headache a 3 and blurred vision. Son stated that patients heart rate dropped into 50's in the ER after receiving Metoprolol. Son does not want patient to have additional Metoprolol if his heart rated goes up and comes back down quickly. Son and patient are agreeable to a Cardiology consult. Patients Train Brakeman is Dr. Escamilla. Patient denies chest pain, shortness of breath, dizziness, nausea, or vomiting. Review of Systems Review of Systems: All systems reviewed & are unremarkable except as noted in HPI and below Exam Const: General: no acute distress Resp: Effort & Inspection: normal respiratory effort Auscultation: diminished lung sounds Cardio: Other: SR 72 and up to 140's afib intermittently. GI: GI Palp: Yes Soft to palpation Auscultation: normal bowel sounds Neuro: Speech: normal speech Extrem: General: no pedal edema Psych: Mental Status: mental status grossly normal Affect: normal affect Objective Data Vital Signs Vital Signs: Vital Signs - 24 hr 11/25/24 16:42 11/25/24 17:05 11/25/24 18:24 Temperature 98.1 F Pulse Rate 131 H 144 H 78 Respiratory Rate 24 H 16 Blood Pressure 123/78 132/71 Pulse Oximetry 100 100 Oxygen Delivery Room Air 11/25/24 20:45 11/25/24 21:40 11/25/24 21:43 Temperature 98.6 F Pulse Rate 61 61 60 Respiratory Rate 16 14 16 Blood Pressure 129/68 117/63 115/57 L Pulse Oximetry 99 99 97 Oxygen Delivery 11/25/24 22:00 11/25/24 23:23 11/26/24 00:00 Temperature 98.7 F Pulse Rate 76 78 71 Respiratory Rate 16 16 Blood Pressure 118/58 L Pulse Oximetry 97 97 Oxygen Delivery Room Air 11/26/24 00:00 11/26/24 02:00 11/26/24 04:00 Temperature Pulse Rate 71 83 83 Respiratory Rate 16 Blood Pressure Pulse Oximetry 97 Oxygen Delivery Room Air 11/26/24 04:00 11/26/24 04:31 11/26/24 05:49 Temperature 97.8 F Pulse Rate 71 64 64 Respiratory Rate 16 Blood Pressure 118/59 L Pulse Oximetry 98 Oxygen Delivery 11/26/24 08:01 Temperature 97.6 F Pulse Rate 70 Respiratory Rate 18 Blood Pressure 111/58 L Pulse Oximetry 97 Oxygen Delivery Intake/Output Intake/Output: Intake & Output 11/23/24 11/24/24 11/25/24 11/26/24 23:59 23:59 23:59 23:59 Intake Total 550 480 Output Total 500 Balance 550 -20 Meds/Results Medications: Active Medications Generic Name Dose Route Start Last Admin Trade Name Freq PRN Reason Stop Dose Admin Acetaminophen 1,000 mg 11/25/24 20:43 Acetaminophen 500 Mg Tablet PO Q6H PRN Mild Pain (1-3) or Fever Hydrocodone Bitart/Acetaminophen 1 tab 11/25/24 20:43 Hydrocodone/Acetaminophen (*Crx) 7.5-325 Mg Tablet PO Q6H PRN Pain Rated 4-6 Calcium Carbonate 200 mg 11/25/24 20:43 Calcium Carbonate (Tums) 500 Mg (200 Mg Elemental) PO Q6H PRN Indigestion Doxycycline Hyclate 100 mg 12/03/24 09:00 Doxycycline Hyclate 100 Mg Tablet PO Q12HR DAREN Ferrous Sulfate 325 mg 11/26/24 11:00 Ferrous Sulfate [address] PO 1100,1800 DAREN Furosemide 20 mg 11/26/24 09:00 11/26/24 08:37 Furosemide 20 Mg Tablet PO 20 mg DAILY DAREN Administration Cefepime HCl 1 gm in 50 mls @ 100 mls/hr 11/26/24 08:00 11/26/24 08:30 Maxipime 1 Gm/Ns 50 Ml IVPB 100 mls/hr Q12H DAREN Administration Losartan Potassium 50 mg 11/26/24 09:00 11/26/24 08:37 Losartan Potassium 50 Mg Tablet PO 50 mg DAILY DAREN Administration Melatonin 5 mg 11/26/24 21:00 Melatonin 5 Mg Tablet PO HS DAREN Metformin HCl 1,000 mg 11/26/24 08:00 11/26/24 08:38 Metformin Hcl Xr 500 Mg Tab.Sr.24h PO 1,000 mg BIDWM DAREN Administration Metoprolol Succinate 25 mg 11/26/24 21:00 Metoprolol Succinate Ext Rel 25 Mg Tabcr PO HS DAREN Metoprolol Succinate 25 mg 11/26/24 10:35 Metoprolol Succinate Ext Rel 25 Mg Tabcr PO 11/26/24 10:36 ONCE STA Morphine Sulfate 4 mg 11/25/24 20:43 Morphine Sulfate (*Crx) 4 Mg/Ml Inj IV PUSH Q4H PRN Pain Rated 7-10 Ondansetron HCl 4 mg 11/25/24 20:43 Ondansetron Inj 4 Mg/2 Ml Vial IV PUSH Q6H PRN Nausea And Vomiting Oxycodone/Acetaminophen 1 tab 11/26/24 03:55 Oxycodone/Acetaminophen (*Crx) 10-325 Mg Tablet PO Q6H PRN pain 7-10 Vitamin D 5,000 units 11/26/24 17:00 Cholecalciferol 5,000 Units Tablet PO 1700 DAREN Radiology Results: ITS Impressions Chest X-Ray 11/25/24 17:19 IMPRESSION: Subsegmental atelectasis/consolidation in the left lung base. Patchy airspace opacities in the bilateral lower lungs may represent edema or infection. Moderate left and small right pleural effusions. Osseous metastases. Labs Labs: Laboratory Results - last 24 hr 11/25/24 11/25/24 11/25/24 17:00 20:38 22:39 WBC 7.8 RBC 3.50 L Hgb 9.2 L Hct 30.7 L MCV 87.7 MCH 26.3 MCHC 30.0 L RDW 26.1 H Plt Count 320 MPV 8.8 Immature Gran % (Auto) 1.7 H Neut % (Auto) 78.5 H Lymph % (Auto) 14.8 L Randolph % (Auto) 4.7 Eos % (Auto) 0.0 Baso % (Auto) 0.3 Lymph # (Auto) 1.16 Randolph # (Auto) 0.4 Eos # (Auto) 0.0 Baso # (Auto) 0.0 Abs Immat Gran (auto) 0.13 H Absolute Neuts (auto) 6.2 Absolute Nucleated RBC 0.030 H Band Neutrophils % Not Reportable Nucleated RBC % 0.4 H Platelet Estimate Adequate Hypochromasia Anisocytosis 1+ Ovalocytes 1+ Schistocytes None seen PT 14.2 INR 1.1 APTT 25.4 Sodium 137 Potassium 4.7 Chloride 108 H Carbon Dioxide 19 L Anion Gap 10 BUN 28 H Creatinine 1.06 Estim Creat Clear Calc 48 Estimated GFR > 60 Glucose 145 H Hemoglobin A1c Calcium 7.1 L Magnesium 1.7 Total Bilirubin 0.3 AST 24 ALT 23 Alkaline Phosphatase 973 H Troponin I < 0.012 < 0.012 < 0.012 Total Protein 7.0 Albumin 3.8 Lipase 221 TSH (Reflex) 11/26/24 11/26/24 04:14 07:46 WBC 5.8 RBC 3.00 L Hgb 7.7 L Hct 26.0 L MCV 86.7 MCH 25.7 L MCHC 29.6 L RDW 26.0 H Plt Count 289 MPV 8.9 Immature Gran % (Auto) 1.2 H Neut % (Auto) 67.2 Lymph % (Auto) 21.8 Randolph % (Auto) 9.3 H Eos % (Auto) 0.2 Baso % (Auto) 0.3 Lymph # (Auto) 1.27 Randolph # (Auto) 0.5 Eos # (Auto) 0.0 Baso # (Auto) 0.0 Abs Immat Gran (auto) 0.07 H Absolute Neuts (auto) 3.9 Absolute Nucleated RBC 0.020 H Band Neutrophils % 0 Nucleated RBC % 0.3 H Platelet Estimate Adequate Hypochromasia 1+ Anisocytosis 1+ Ovalocytes 1+ Schistocytes None seen PT 14.7 INR 1.1 APTT 26.3 Sodium 138 139 Potassium 4.0 3.7 Chloride 113 H 111 H Carbon Dioxide 17 L 19 L Anion Gap 8 9 BUN 22 H 21 H Creatinine 0.83 0.85 Estim Creat Clear Calc 61 60 Estimated GFR > 60 > 60 Glucose 81 124 H Hemoglobin A1c 5.6 Calcium 6.5 L 6.6 L Magnesium 1.5 L Total Bilirubin 0.4 AST 21 ALT 19 Alkaline Phosphatase 806 H Troponin I Total Protein 6.0 L Albumin 3.3 L Lipase TSH (Reflex) 0.597 Quality VTE Prophylaxis VTE prophylaxis: mechanical ordered
[2024-11-26] MEDS: METOPROLOL SUCCINATE EXT REL 25 MG TABCR PO ×2 (11:11→21:02)
--- NOTE | 2024-11-26 14:45 | PM.CNCAR ---
Assessment and Plan Assessment and plan (1) Atrial fibrillation with RVR: Code(s): I48.91 - Unspecified atrial fibrillation Status: Acute (2) CAD (coronary artery disease), squ[place] coronary artery: Qualifiers: [place] vs. transplanted heart: squaxin heart Associated angina: without angina Qualified Code(s): I25.10 - Atherosclerotic heart disease of squaxin coronary artery without angina pectoris Code(s): I25.10 - Atherosclerotic heart disease of squaxin coronary artery without angina pectoris Status: Chronic (3) Essential hypertension: Code(s): I10 - Essential (primary) hypertension Status: Chronic (4) Mixed hyperlipidemia: Code(s): E78.2 - Mixed hyperlipidemia Status: Acute Plan Problem list: 1. Symptomatic paroxysmal atrial fibrillation with RVR -spontaneously cardioverted back to sinus rhythm -- troponin negative -- echo in 2019 showed normal LVEF of 70%, mild MR, mild TR, moderate AR 2. Hypertension 3. CAD 4. Tobacco use disorder 5. Chronic iron deficiency anemia secondary to GI bleed 6. Hyperlipidemia 7. Obstructive sleep apnea CPAP 8. Type 2 diabetes mellitus 9. Metastatic prostate cancer with bone Mets Plan: Continue metoprolol at home dose Continue Lasix at home does Continue losartan at home does High chads Vasc score but unable to take anticoagulation due to GI bleed and anemia. Recommend outpatient evaluation for left atrial appendage occlusion if life span estimated more than 1 year from metastatic prostatic cancer TTE Check renal function and electrolytes daily. Replace electrolytes as needed to keep potassium greater than 4 and magnesium greater than 2 History of Present Illness History of Present Illness Consult date/time: 11/26/24 14:45 Reason For Visit: Pneumonia Narrative: 79-year-old male with past medical history of hypertension, paroxysmal atrial fibrillation not on anticoagulation due to GI bleed, CAD, tobacco use disorder, hyperlipidemia, obstructive sleep apnea CPAP, type 2 diabetes mellitus,metastatic prostate cancer with bone Mets in palliative care, pleural effusion, chronic pain, tubular adenoma of colon, rectal bleed, benign paroxysmal positional vertigo presents with chief complaints of palpitations and lightheadedness. patient is Gabonese speaking and history was obtained through an ordnance officer. His home health nurse checked on him today and noted a rapid heart rate and sent him to the ER where he was noted to be in AFib RVR. He spontaneously cardioverted back into sinus rhythm. Patient denies any chest pain, shortness of breath, leg swelling, weight gain, presyncope, syncope, orthopnea, PND. He denies any blood in his stool. He is not aware of the medications he is taking and states that his son and daughter help him with it. Workup: Troponin: Negative EKG: AFib with RVR with rate in the 130s Chest x-ray: subsegmental atelectasis/consolidation in the left lung base with patchy airspace opacities in the bilateral lower lungs representing edema or infection, moderate left and small right pleural effusions with multiple osseous metastasis Review of Systems Review of Systems: A complete review of systems was performed and pertinent positives are noted in the [facility] Past Medical History Medical History (Updated 11/26/24 @ 15:11 by Ester Gann, ELEVATOR TECHNICIAN) Chronic pain Metastatic cancer Abnormal chest x-ray Pruritus BMI 24.0-24.9, adult Allergic drug reaction Dermatitis Pleural effusion (~08/31/24) bilateral pleural effusions 08/31/2024 treated with pleurocentesis with no malignancy in fluid. Prostate cancer PSA 0.5 on 11/10/2022. PSA 4.7 on 03/29/2023. PSA 6.1 on 05/01/2023. Prostate cancer BMI 27.0-27.9,adult Cerumen impaction Right sided abdominal pain Right inguinal pain Tubular adenoma of colon (09/19/23) tubular adenoma sigmoid colon 10/18/2023. Prostate cancer metastatic to bone PSA 0.5 on 11/10/2022. PSA 4.7 on 03/29/2023. PSA 6.1 on 05/01/2023. Hematuria Acute on chronic blood loss anemia Rectal bleeding Benign paroxysmal positional vertigo due to bilateral vestibular disorder Dermatitis of face (~09/23/22) Essential hypertension Rib pain on left side (~07/09/22) Diffuse metastatic lesions of the spine, ribs, scapula with possible non displaced anterior lateral 9th rib fracture on x-ray 07/19/2022. Chronic low back pain X-ray 07/19/2022 with degenerative changes of the lumbar spine with diffuse sclerotic metastatic lesions. Paroxysmal atrial fibrillation Overweight (BMI 25.0-29.9) At high risk for falls Bone metastases Postoperative ileus Atrial fibrillation Iron deficiency anemia, unspecified total iron 31 with 7% saturation and ferritin 44 with hemoglobin 12.8 on 01/18/2021 Eosinophilia (~11/02/20) eosinophil count 1248 on 11/02/2020 Anemia (11/02/20) hemoglobin 12.7 on 11/02/2020. Hemoglobin 12.5 on 11/10/2022. Elevated PSA, between 10 and less than 20 ng/ml (11/02/20) PSA 16.3 on 11/02/2020 Tobacco use disorder, continuous 5 or 6 cigarettes daily CAD (coronary artery disease), squaxin coronary artery Eczema Folliculitis Tinea cruris COVID-19 virus detected (~02/16/20) Obstructive sleep apnea on CPAP does not use CPAP Chronic anxiety Keloid scar Chronic pain of left knee Mixed hyperlipidemia Nocturia Type 2 diabetes mellitus without complication, without long-term current use of insulin Glucose 173 on 11/10/2022. Surgical History Surgical History Hx of right inguinal hernia repair History of hernia repair Family History Family History Mother Family history of malignant neoplasm Father Family history of malignant neoplasm Social History Social History Social History: Caffeine-daily Smoking packs per day: 1 Smoking cigarettes per day: 20.0 Years smoked: 20 Smoking pack-years: 20.00 Smoking status: Former smoker Alcohol intake: never Alcohol use details: HEAVIER DRINKER - QUIT EARLY Substance use: never Substance use type: does not use Do You Feel Safe in your Home?: Yes Lack of Transportation: No Lack of Food: Never True Current Housing: I Have Housing Concerned About Future Housing: No Difficulty Paying Gas/Electric Bills: No Difficulty Paying for Meds: No Currently Unemployed: No Education: Grade School Difficulty w/ Childcare or Family Care: No Living arrangements: with family Additional living arrangements comments: - ROS [facility] Spiritual care concerns: No Meds Home Medications and Allergies Home Medications ?Medication ?Instructions ?Recorded ?Confirmed ?Type metoprolol succinate 25 mg 25 mg PO HS 08/17/22 11/25/24 History tablet,extended release 24 hr cholecalciferol (vitamin D3) 125 125 mcg PO 1700 02/29/24 11/25/24 History mcg (5,000 unit) tablet (Vitamin D3) ferrous sulfate 325 mg (65 mg 325 mg PO BID 02/29/24 11/25/24 History iron) tablet oxycodone-acetaminophen 10 mg-325 1 tablet PO Q6H PRN pain #120 tabs 11/11/24 11/25/24 Rx mg tablet (Percocet) melatonin 5 mg PO HS 11/19/24 11/25/24 History prednisone 20 mg tablet 20 mg PO . q.a.m. #7 tabs 11/20/24 11/25/24 Rx clotrimazole 1 % topical solution 1 applic topical . q.h.s. fungal 11/24/24 11/25/24 Rx external otitis #30 mL furosemide 20 mg tablet 20 mg PO DAILY 11/25/24 11/25/24 History losartan 50 mg tablet 50 mg PO DAILY 11/25/24 11/25/24 History metformin 500 mg tablet,extended 1,000 mg PO BID 11/25/24 11/25/24 History release 24 hr Allergies Allergy/AdvReac Type Severity Reaction Status Date / Time No Known Allergies Allergy Verified 11/25/24 16:38 Vital Signs Vital Signs - 24 hr 11/25/24 16:42 11/25/24 17:05 11/25/24 18:24 Temperature 36.7 C Pulse Rate 131 H 144 H 78 Respiratory Rate 24 H 16 Blood Pressure 123/78 132/71 Pulse Oximetry 100 100 Oxygen Delivery Room Air 11/25/24 20:45 11/25/24 21:40 11/25/24 21:43 Temperature 37.0 C Pulse Rate 61 61 60 Respiratory Rate 16 14 16 Blood Pressure 129/68 117/63 115/57 L Pulse Oximetry 99 99 97 Oxygen Delivery 11/25/24 22:00 11/25/24 23:23 11/26/24 00:00 Temperature 37.1 C Pulse Rate 76 78 71 Respiratory Rate 16 16 Blood Pressure 118/58 L Pulse Oximetry 97 97 Oxygen Delivery Room Air 11/26/24 00:00 11/26/24 02:00 11/26/24 04:00 Temperature Pulse Rate 71 83 83 Respiratory Rate 16 Blood Pressure Pulse Oximetry 97 Oxygen Delivery Room Air 11/26/24 04:00 11/26/24 04:31 11/26/24 05:49 Temperature 36.6 C Pulse Rate 71 64 64 Respiratory Rate 16 Blood Pressure 118/59 L Pulse Oximetry 98 Oxygen Delivery 11/26/24 08:00 11/26/24 08:01 11/26/24 09:00 Temperature 36.4 C Pulse Rate 71 70 132 H Respiratory Rate 18 Blood Pressure 111/58 L 140/61 Pulse Oximetry 97 97 Oxygen Delivery 11/26/24 10:00 11/26/24 10:25 11/26/24 11:11 Temperature Pulse Rate 158 H 156 H Respiratory Rate Blood Pressure Pulse Oximetry 97 Oxygen Delivery Room Air 11/26/24 11:30 11/26/24 12:00 11/26/24 14:00 Temperature 36.3 C L Pulse Rate 138 H 75 70 Respiratory Rate 20 Blood Pressure 129/69 Pulse Oximetry 99 Oxygen Delivery Exam Narrative: General: Alert oriented x3, no acute distress Neck: Supple, no JVD Chest: Bilaterally clear to auscultation, no rales or rhonchi Cardiac: S1, S2 +, regular rate, regular rhythm, no murmurs or rubs Extremities: No pedal edema, no skin rash Neurologic: Alert and oriented x3, no focal neurological deficits Results Labs and Meds 11/26/24 04:14 11/26/24 14:44 Lab results: Cardiac Enzymes 11/25/24 11/25/24 11/25/24 Range/Units 17:00 20:38 22:39 AST 24 (17-59) U/L Troponin I < 0.012 < 0.012 < 0.012 (0.000-0.034) ng/mL 11/26/24 Range/Units 07:46 AST 21 (17-59) U/L Troponin I (0.000-0.034) ng/mL Coagulation 11/25/24 11/26/24 Range/Units 17:00 04:14 PT 14.2 14.7 (11.1-14.7) Seconds APTT 25.4 26.3 (22.3-36.8) Seconds CBC 11/25/24 11/26/24 Range/Units 17:00 04:14 WBC 7.8 5.8 (4.5-10.0) K/mm3 RBC 3.50 L 3.00 L (4.6-6.20) M/mm3 Hgb 9.2 L 7.7 L (14.0-18.0) g/dL Hct 30.7 L 26.0 L (42.0-52.0) % Plt Count 320 289 (150-375) k/mm3 Lymph # (Auto) 1.16 1.27 (0.9-3.2) K/mm3 Cook # (Auto) 0.4 0.5 (0.1-0.6) K/mm3 Eos # (Auto) 0.0 0.0 (0-0.3) K/mm3 Baso # (Auto) 0.0 0.0 (0.0-0.1) K/mm3 Comprehensive Metabolic Panel 11/25/24 11/26/24 11/26/24 Range/Units 17:00 04:14 07:46 Sodium 137 138 139 (137-145) mmol/L Potassium 4.7 4.0 3.7 (3.4-5.0) mmol/L Chloride 108 H 113 H 111 H (98-107) mmol/L Carbon Dioxide 19 L 17 L 19 L (22-30) mmol/L BUN 28 H 22 H 21 H (9-20) mg/dL Creatinine 1.06 0.83 0.85 (0.7-1.3) mg/dL Glucose 145 H 81 124 H (65-110) mg/dL Calcium 7.1 L 6.5 L 6.6 L (8.4-10.2) mg/dL AST 24 21 (17-59) U/L ALT 23 19 (6-50) U/L Alkaline Phosphatase 973 H 806 H (38-126) U/L Total Protein 7.0 6.0 L (6.3-8.2) g/dL Albumin 3.8 3.3 L (3.5-5.1) g/dL Intake and Output 11/25/24 11/26/24 11/26/24 23:59 07:59 15:59 Intake Total 550 240 480 Output Total 500 Balance 550 -260 480 Intake: IV 550 Sodium Chloride 0.9% IV 500 ml 500 @ 999 mls/hr IV CONT .Q31M STA Rx#:[id number] Cefepime 2 gm/Ns 50 ml 2 gm In 50 50 ml @ 100 mls/hr IVPB ONCE STA Rx#:[id number] Oral 240 480 Output: Urine 500 Other: # Unmeasured Voids 1 Patient Weight 11/26/24 23:59 Weight 73.5 kg
[2024-11-26 14:59] LABS: Magnesium 1.9 mg/dL (1.6-2.3); Potassium 4.2 mmol/L (3.4-5.0)
[2024-11-26] MEDS: MAGNESIUM SULF 1 GM/D5W 100 ML 1 GM/100 ML BAG IVPB (15:58)
[2024-11-26] MEDS: FERROUS SULFATE 325 MG TABLET DR PO ×2 (15:59→23:14)
[2024-11-26] MEDS: CHOLECALCIFEROL 5,000 UNITS TABLET 5000 UNITS PO (16:06)
[2024-11-26 16:37] LABS: Calcium 7.5 mg/dL (8.4-10.2)
[2024-11-26] MEDS: MELATONIN 5 MG TABLET PO (21:02)
[2024-11-27] VITALS (25 sets, daily range): BP systolic 116–138; BP diastolic 50–97; PULSE 63–79; RESP 16–20; TEMP 36.6–37; O2SAT 97–100
--- NOTE | 2024-11-27 | ECHO_ITS ---
Patient Info Name: Ej Steen Age: 79 years : 1945 Gender: Male Ht: 68 in Wt: 162 lbs BSA: 1.89 m2 HR: 67 bpm BP: 118 / 58 mmHg Heart Rhythm: Sinus Rhythm Technical Quality: Fair Exam Date: 11/27/2024 9:03 AM Exam Location: Echo Lab Patient Status: Inpatient Admit Date: 11/25/2024 Staff Ordering Physician: sEter Gann APRN Poster: Sangita Mcgowan RDCS Attending Provider: Jorge Francis MD Referring Physician: Azeem EUCEDA; Exam Type: CA echo doppler color flow Study Info Indications - Afib Complete two-dimensional, color flow and Doppler transthoracic echocardiogram is performed. Summary 1. Left ventricular chamber dimension is normal. 2. Left ventricular systolic function is normal, estimated at 65-70%. 3. There is mildly increased left ventricular wall thickness. 4. The left ventricular diastolic function is grade I diastolic dysfunction. 5. Right ventricular systolic function is normal. 6. Left atrial chamber dimension is moderately enlarged. 7. Right atrial chamber dimension is mildly enlarged. 8. There is mild aortic valve regurgitation. 9. There is mild mitral valve regurgitation. 10. There is mild tricuspid valve regurgitation. Left Ventricle Left ventricular chamber dimension is normal. Left ventricular systolic function is normal, estimated at 65-70%. There is mildly increased left ventricular wall thickness. The left ventricular diastolic function is grade I diastolic dysfunction. Right Ventricle Right ventricular chamber dimension is normal. Right ventricular systolic function is normal. Left Atria Left atrial chamber dimension is moderately enlarged. Right Atria Right atrial chamber dimension is mildly enlarged. Atrial Septum Intact interatrial septum visualized by color flow imaging. Aortic Valve The aortic valve is not well visualized. There is no aortic valve stenosis. There is mild aortic valve regurgitation. There is mild aortic valve calcification. Pulmonic Valve The pulmonic valve is not well visualized. There is no pulmonic regurgitation. Mitral Valve The mitral valve has thickened leaflets. There is mild mitral valve regurgitation. Tricuspid Valve There is mild tricuspid valve regurgitation. Pericardium/Pleural There is no pericardial effusion. Inferior Vena Cava Normal inferior vena cava with >50% collapse upon inspiration consistent with normal right atrial pressure, 3 mmHg. Aorta The aortic root size at the sinus of Valsalva is normal. Left Ventricular Outflow Tract Name Value Normal LVOT 2D LVOT Diameter 2.0 cm LVOT Doppler LVOT Peak Gradient 8 mmHg LVOT Mean Gradient 3 mmHg LVOT VTI 29 cm LVOT VTI/AV VTI Ratio 1.0 LVOT Stroke Volume 91 ml LVOT CO 5.7 l/min LVOT CI 3.0 l/min/m2 Pulmonic Valve Name Value Normal RVOT Doppler RVOT Peak Gradient 1 mmHg PV Doppler PV Peak Gradient 3 mmHg Mitral Valve Name Value Normal MV Doppler MV Decel [place] 242 cm/s2 MV PHT 104 ms MV Area (PHT) 2.1 cm2 4.0-5.0 MV Diastolic Function MV E Peak Velocity 87 cm/s MV A Peak Velocity 72 cm/s MV E/A 1.2 MV Decel Time 360 ms MV Annular TDI MV E/e' (Septal) 11.9 <=8.0 MV E/e' (Lateral) 10.2 <=8.0 MV E/e' (Average) 11.0 Tricuspid Valve Name Value Normal TV Regurgitation Doppler TR Peak Velocity 239 cm/s TR Peak Gradient 23 mmHg Estimated PAP/RSVP RA Pressure 3 mmHg <=5 PA Systolic Pressure 26 mmHg <36 RV Systolic Pressure 26 mmHg <36 Aortic Valve Name Value Normal AV Doppler AV Peak Velocity 133 cm/s AV Peak Gradient 7 mmHg AV Mean Gradient 3 mmHg AV VTI 30 cm AV Area (Cont Eq VTI) 3.1 cm2 >=3.0 AV Area (Cont Eq Leon) 3.4 cm2 AV Regurgitation 2D LVOT Area 3.2 cm2 Ventricles Name Value Normal LV Dimensions 2D/MM IVS Diastolic Thickness (2D) 1.4 cm 0.6-1.0 LVID Diastole (2D) 5.2 cm 4.2-5.8 LVIW Diastolic Thickness (2D) 1.4 cm 0.6-1.0 LVID Systole (2D) 3.3 cm 2.5-4.0 LVOT Diameter 2.0 cm LV Mass (2D Cubed) 310.54 g 88.00-224.00 LV Mass Index (2D Cubed) 165 g/m2 49-115 Relative Wall Thickness (2D) 0.54 LV Fractional Shortening/Ejection Fraction 2D/MM LV Fractional Shortening (2D) 37 % 25-43 LV EF (2D Teicholz) 67 % 52-72 LV Diastolic Volume (4C MOD) 187 ml LV EF (4C MOD) 68 % LV Diastolic Volume (2C MOD) 182 ml LV EF (2C MOD) 66 % LV Diastolic Volume (BP MOD) 185 ml 62-150 LV Diastolic Volume Index (BP MOD) 98 ml/m2 34-74 LV Systolic Volume (BP MOD) 62 ml 21-61 LV Systolic Volume Index (BP MOD) 33 ml/m2 11-31 LV EF (BP MOD) 67 % 52-72 LV Diastolic Length (4C) 9.3 cm LV Systolic Length (4C) 7.6 cm LV Stroke Volume (4C MOD) 128 ml LV CO (BP MOD) 0.0 l/min LV CI (BP MOD) 0.0 l/min/m2 Atria Name Value Normal LA Dimensions LA Volume (4C A-L) 99 ml LA Volume (BP A-L) 91 ml RA Dimensions RA Area (4C) 19.6 cm2 <=18.0 Report Signatures
[2024-11-27 04:44] LABS: Hematocrit 27.5 % (42.0-52.0); Hemoglobin 8.3 g/dL (14.0-18.0); Mean Corpuscular HGB Conc 30.2 g/dl (32-36); Mean Corpuscular Hemoglobin 26.6 pg (26-34); Mean Corpuscular Volume 88.1 fl (80-100); Mean Platelet Volume 8.9 fl (7.4-10.4); Platelet Count Result 318 k/mm3 (150-375); Red Blood Count 3.12 M/mm3 (4.6-6.20); Red Cell Distribution Width 26.5 % (11.5-14.5); White Blood Count 6.4 K/mm3 (4.5-10.0)
[2024-11-27 04:59] LABS: Alanine Aminotransferase 19 U/L (6-50); Albumin Level 3.1 g/dL (3.5-5.1); Alkaline Phosphatase 790 U/L (38-126); Anion Gap 11 mmol/L (4-12); Aspartate Amino Transferase 20 U/L (17-59); Bilirubin,Total 0.2 mg/dL (0.2-1.3); Blood Urea Nitrogen 22 mg/dL (9-20); Calcium 6.7 mg/dL (8.4-10.2); Carbon Dioxide 16 mmol/L (22-30); Chloride 112 mmol/L (98-107); Estimated CRCL calculation 62 ml/min; Estimated Glomerular Filt Rate > 60; Glucose 76 mg/dL (65-110); Potassium 4.3 mmol/L (3.4-5.0); Sodium 139 mmol/L (137-145)
--- NOTE | 2024-11-27 08:32 | ECG_ITS ---
Test Date: 2024-11-27 09:37:11 Measurements Intervals [place] Rate: 64 P: 48 HI: 154 QRS: 20 QRSD: 92 T: 14 QT: 441 QTc: 456 Interpretive Statements SINUS RHYTHM NONSPECIFIC ST & T-WAVE ABNORMALITY Compared to ECG 11/26/2024 09:37:33 Atrial fibrillation no longer present Electronically Signed On 11-27-2024 10:13:17 CDT by Chiquis Goff M.D.
[2024-11-27] MEDS: metFORMIN HCL XR 500 MG TAB.SR.24H 1000 MG PO ×2 (08:37→17:52)
[2024-11-27] MEDS: CEFEPIME 1 GM/NS 50 ML 1 GM/50 ML BAG IVPB ×2 (08:37→20:08)
[2024-11-27] MEDS: FUROSEMIDE 20 MG TABLET PO (08:37)
[2024-11-27] MEDS: LOSARTAN POTASSIUM 50 MG TABLET PO (08:37)
[2024-11-27] MEDS: CALCIUM GLUC 2,000 MG/NS 100ML 2,000 MG/100 ML BAG 100 MG IVPB (08:40)
--- NOTE | 2024-11-27 10:09 | PM.PNCARD ---
Progress Note: A&P Assessment and Plan (1) Atrial fibrillation with RVR: Code(s): I48.91 - Unspecified atrial fibrillation Status: Acute (2) CAD (coronary artery disease), [place] coronary artery: Qualifiers: [place] vs. transplanted heart: [place] heart Associated angina: without angina Qualified Code(s): I25.10 - Atherosclerotic heart disease of [place] coronary artery without angina pectoris Code(s): I25.10 - Atherosclerotic heart disease of [place] coronary artery without angina pectoris Status: Chronic (3) Essential hypertension: Code(s): I10 - Essential (primary) hypertension Status: Chronic (4) Mixed hyperlipidemia: Code(s): E78.2 - Mixed hyperlipidemia Status: Acute Plan Problem list: 1. Symptomatic paroxysmal atrial fibrillation with RVR on metoprolol-he goes in and out of AFib spontaneously converting back to SR; when he has A fib his rates are up to the 140s and he is symptomatic with lightheadedness, when he is in sinus rhythm his rates are well controlled in the 60s to 90s range -- troponin negative -- echo in 2019 showed normal LVEF of 70%, mild MR, mild TR, moderate AR 2. Hypertension 3. CAD 4. Tobacco use disorder 5. Chronic iron deficiency anemia secondary to GI bleed 6. Hyperlipidemia 7. Obstructive sleep apnea CPAP 8. Type 2 diabetes mellitus 9. Metastatic prostate cancer with bone Mets Plan: -Continue metoprolol 25mg PO BID -Given frequent symptomatic paroxysms of AFib with RVR with rates in the 140s, recommend adding amiodarone. Give 300mg IV once, then 200 mg TID for 10 days, then 200mg once daily. This would be a better option than flecainide given frequent paroxysms Continue Lasix and losartan at home dose High chads Vasc score but unable to take anticoagulation due to GI bleed and anemia. Recommend outpatient evaluation for left atrial appendage occlusion if life span estimated more than 1 year from metastatic prostatic cancer TTE today Check renal function and electrolytes daily. Replace electrolytes as needed to keep potassium greater than 4 and magnesium greater than 2 Subjective Date/time seen: 11/27/24 10:09 Interval history: Reason for encounter: AFib with RVR Relevant history: 79-year-old male with past medical history of hypertension, paroxysmal atrial fibrillation not on anticoagulation due to GI bleed, CAD, tobacco use disorder, hyperlipidemia, obstructive sleep apnea CPAP, type 2 diabetes mellitus,metastatic prostate cancer with bone Mets in palliative care, pleural effusion, chronic pain, tubular adenoma of colon, rectal bleed, benign paroxysmal positional vertigo was admitted with chief complaints of palpitation and lightheadedness. In the ER he was noted to be in AFib with RVR and spontaneously converted back to sinus rhythm. He flipped back to AFib yesterday evening with rates up to the 140s and symptoms of lightheadedness but spontaneously converted back to sinus rhythm last night. He remains in sinus rhythm. Interval history: Patient remains asymptomatic. He denies any chest pain, shortness of breath, palpitations. Review of telemetry shows he was back in AFib with RVR (rates ranging up to 140s) yesterday evening, then converted back spontaneously to sinus rhythm and remains in sinus rhythm this morning with rates in the 60s. Review of Systems Cardiovascular: Comments: As reported in HPI Respiratory: Comments: As reported in HPI Exam Narrative: General: Alert oriented x3, no acute distress Neck: Supple, no JVD Chest: Bilaterally clear to auscultation, no rales or rhonchi Cardiac: S1, S2 +, regular rate, regular rhythm, no murmurs or rubs Extremities: No pedal edema, no skin rash Neurologic: Alert and oriented x3, no focal neurological deficits Objective Data Vital Signs Vital Signs: Vital Signs - 24 hr 11/26/24 10:25 11/26/24 11:11 11/26/24 11:30 Temperature 36.3 C L Pulse Rate 156 H 138 H Respiratory Rate 20 Blood Pressure 129/69 Pulse Oximetry 97 99 Oxygen Delivery Room Air 11/26/24 12:00 11/26/24 14:00 11/26/24 16:00 Temperature Pulse Rate 75 70 70 Respiratory Rate Blood Pressure Pulse Oximetry Oxygen Delivery 11/26/24 16:14 11/26/24 18:00 11/26/24 19:52 Temperature 36.7 C Pulse Rate 68 67 70 Respiratory Rate 18 18 Blood Pressure 123/41 L Pulse Oximetry 95 95 Oxygen Delivery Room Air 11/26/24 19:53 11/26/24 20:08 11/26/24 21:02 Temperature 36.9 C Pulse Rate 70 69 63 Respiratory Rate 16 Blood Pressure 106/52 L Pulse Oximetry 100 Oxygen Delivery 11/26/24 22:00 11/27/24 00:00 11/27/24 00:00 Temperature Pulse Rate 67 70 70 Respiratory Rate 16 Blood Pressure Pulse Oximetry 100 Oxygen Delivery Room Air 11/27/24 00:41 11/27/24 03:36 11/27/24 03:37 Temperature 36.8 C Pulse Rate 69 70 70 Respiratory Rate 16 16 Blood Pressure 118/57 L Pulse Oximetry 100 100 Oxygen Delivery Room Air 11/27/24 04:00 11/27/24 06:00 11/27/24 08:41 Temperature 36.8 C 37.0 C Pulse Rate 64 67 64 Respiratory Rate 18 18 Blood Pressure 118/58 L 138/51 L Pulse Oximetry 97 97 Oxygen Delivery Intake/Output Intake/Output: Intake & Output 11/24/24 11/25/24 11/26/24 11/27/24 23:59 23:59 23:59 23:59 Intake Total 550 1460 1240 Output Total 500 Balance [id number] Meds/Results Medications: Active Medications Generic Name Dose Route Start Last Admin Trade Name Freq PRN Reason Stop Dose Admin Acetaminophen 1,000 mg 11/25/24 20:43 Acetaminophen 500 Mg Tablet PO Q6H PRN Mild Pain (1-3) or Fever Hydrocodone Bitart/Acetaminophen 1 tab 11/25/24 20:43 Hydrocodone/Acetaminophen (*Crx) 7.5-325 Mg Tablet PO Q6H PRN Pain Rated 4-6 Calcium Carbonate 200 mg 11/25/24 20:43 Calcium Carbonate (Tums) 500 Mg (200 Mg Elemental) PO Q6H PRN Indigestion Doxycycline Hyclate 100 mg 12/03/24 09:00 Doxycycline Hyclate 100 Mg Tablet PO Q12HR DAREN Ferrous Sulfate 325 mg 11/26/24 11:00 11/26/24 23:14 Ferrous Sulfate [address] PO 325 mg 1100,1800 DAREN Administration Furosemide 20 mg 11/26/24 09:00 11/27/24 08:37 Furosemide 20 Mg Tablet PO 20 mg DAILY DAREN Administration Cefepime HCl 1 gm in 50 mls @ 100 mls/hr 11/26/24 08:00 11/27/24 08:37 Maxipime 1 Gm/Ns 50 Ml IVPB 100 mls/hr Q12H DAREN Administration Losartan Potassium 50 mg 11/26/24 09:00 11/27/24 08:37 Losartan Potassium 50 Mg Tablet PO 50 mg DAILY DAREN Administration Melatonin 5 mg 11/26/24 21:00 11/26/24 21:02 Melatonin 5 Mg Tablet PO 5 mg HS DAREN Administration Metformin HCl 1,000 mg 11/26/24 08:00 11/27/24 08:37 Metformin Hcl Xr 500 Mg Tab.Sr.24h PO 1,000 mg BIDWM DAREN Administration Metoprolol Succinate 25 mg 11/27/24 10:07 Metoprolol Succinate Ext Rel 25 Mg Tabcr PO BID [facility] Morphine Sulfate 4 mg 11/25/24 20:43 Morphine Sulfate (*Crx) 4 Mg/Ml Inj IV PUSH Q4H PRN Pain Rated 7-10 Ondansetron HCl 4 mg 11/25/24 20:43 Ondansetron Inj 4 Mg/2 Ml Vial IV PUSH Q6H PRN Nausea And Vomiting Oxycodone/Acetaminophen 1 tab 11/26/24 03:55 Oxycodone/Acetaminophen (*Crx) 10-325 Mg Tablet PO Q6H PRN pain 7-10 Perflutren Lipid Microsphere 0 ml 11/26/24 16:20 Perflutren Lipid Microspheres 1.5 Ml Vial Diluted To 10 Ml Total Volume IV PUSH 11/29/24 16:21 ONCE PRN adequate visualization Protocol Vitamin D 5,000 units 11/26/24 17:00 11/26/24 16:06 Cholecalciferol 5,000 Units Tablet PO 5,000 units 1700 DAREN Administration Radiology Results: ITS Impressions Chest X-Ray 11/25/24 17:19 IMPRESSION: Subsegmental atelectasis/consolidation in the left lung base. Patchy airspace opacities in the bilateral lower lungs may represent edema or infection. Moderate left and small right pleural effusions. Osseous metastases. Labs Labs: Laboratory Results - last 24 hr 11/26/24 11/27/24 14:44 03:43 WBC 6.4 RBC 3.12 L Hgb 8.3 L Hct 27.5 L MCV 88.1 MCH 26.6 MCHC 30.2 L RDW 26.5 H Plt Count 318 MPV 8.9 Sodium 139 Potassium 4.2 4.3 Chloride 112 H Carbon Dioxide 16 L Anion Gap 11 BUN 22 H Creatinine 0.81 Estim Creat Clear Calc 62 Estimated GFR > 60 Glucose 76 Calcium 7.5 L 6.7 L Magnesium 1.9 2.0 Total Bilirubin 0.2 AST 20 ALT 19 Alkaline Phosphatase 790 H Total Protein 6.0 L Albumin 3.1 L
--- NOTE | 2024-11-27 10:32 | P.PNIM_ITS ---
Progress Note: A&P Assessment and Plan (1) Atrial fibrillation with RVR: Code(s): I48.91 - Unspecified atrial fibrillation Status: Acute Assessment and Plan: * Telemetry * Self converted once right to ER * Consider diltiazem if converts back * Cardiology consult placed. Patient having intermittent episodes of atrial fibrillation. Metoprolol succinate 25 mg PO BID. * Received Lopressor in ER * Not currently anticoagulated, will order SCDs and reconsider pharmacological anticoagulation if symptoms recur. * TSH 0.597 * Echo today showed: Summary 1. Left ventricular chamber dimension is normal. 2. Left ventricular systolic function is normal, estimated at 65-70%. 3. There is mildly increased left ventricular wall thickness. 4. The left ventricular diastolic function is grade I diastolic dysfunction. 5. Right ventricular systolic function is normal. 6. Left atrial chamber dimension is moderately enlarged. 7. Right atrial chamber dimension is mildly enlarged. 8. There is mild aortic valve regurgitation. 9. There is mild mitral valve regurgitation. 10. There is mild tricuspid valve regurgitation. * Cardiology ordered to start Amiodarone 300mg IV once, then 200 mg TID for 10 days, then 200mg once daily. * Replace electrolytes as needed to keep potassium greater than 4 and magnesium greater than 2. (2) Abnormal chest x-ray: Code(s): R93.89 - Abnormal findings on diagnostic imaging of other specified body structures Status: Acute Assessment and Plan: * Chest x-ray showing concerning for potentially developing consolidation. * Blood cultures no growth to date. * No leukocytosis. * Patient received doxy and cefepime in the ER, will continue at this time. * Monitor and trend labs and vitals. 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 Patient's oncologist is Dr. Carlin at [facility]. It is noted in the most recent oncology note that patient specifically does not want to know the details of his cancer diagnosis nor do his children. * Currently receiving palliative care. * Will provide pain medications for patient as needed. (4) Chronic pain: Code(s): G89.29 - Other chronic pain Status: Chronic Assessment and Plan: * See 3. (5) Hypomagnesemia: Code(s): E83.42 - Hypomagnesemia Status: Acute Assessment and Plan: * Magnesium 2.0 * Keep magnesium >2. * Trend levels. (6) Hypocalcemia: Code(s): E83.51 - Hypocalcemia Status: Acute Assessment and Plan: * Calcium level 6.7. * Calcium Gluconate 2 gram ivpb x1 given. * Trend levels. Subjective Date/time seen: 11/27/24 10:32 Interval history: Patient up walking halls. Patient denies chest pain, palpitations, headache, dizziness, nausea, or vomiting. Review of Systems Review of Systems: All systems reviewed & are unremarkable except as noted in HPI and below Exam Const: General: comfortable and no acute distress Resp: Effort & Inspection: normal respiratory effort Auscultation: clear to auscultation bilaterally Cardio: Rate: regular rate Rhythm: regular rhythm Other: Telemetry- SR 65. GI: GI Palp: Yes Soft to palpation Auscultation: normal bowel sounds Neuro: Speech: normal speech Extrem: General: no pedal edema Psych: Mental Status: mental status grossly normal Affect: normal affect Objective Data Vital Signs Vital Signs: Vital Signs - 24 hr 11/26/24 11:11 11/26/24 11:30 11/26/24 12:00 Temperature 97.3 F L Pulse Rate 156 H 138 H 75 Respiratory Rate 20 Blood Pressure 129/69 Pulse Oximetry 99 Oxygen Delivery 11/26/24 14:00 11/26/24 16:00 11/26/24 16:14 Temperature 98.0 F Pulse Rate 70 70 68 Respiratory Rate 18 Blood Pressure 123/41 L Pulse Oximetry 95 Oxygen Delivery 11/26/24 18:00 11/26/24 19:52 11/26/24 19:53 Temperature Pulse Rate 67 70 70 Respiratory Rate 18 Blood Pressure Pulse Oximetry 95 Oxygen Delivery Room Air 11/26/24 20:08 11/26/24 21:02 11/26/24 22:00 Temperature 98.5 F Pulse Rate 69 63 67 Respiratory Rate 16 Blood Pressure 106/52 L Pulse Oximetry 100 Oxygen Delivery 11/27/24 00:00 11/27/24 00:00 11/27/24 00:41 Temperature 98.2 F Pulse Rate 70 70 69 Respiratory Rate 16 16 Blood Pressure 118/57 L Pulse Oximetry 100 100 Oxygen Delivery Room Air 05/08/25 03:36 11/27/24 03:37 11/27/24 04:00 Temperature 98.3 F Pulse Rate 70 70 64 Respiratory Rate 16 18 Blood Pressure 118/58 L Pulse Oximetry 100 97 Oxygen Delivery Room Air 11/27/24 06:00 11/27/24 08:41 Temperature 98.6 F Pulse Rate 67 64 Respiratory Rate 18 Blood Pressure 138/51 L Pulse Oximetry 97 Oxygen Delivery Intake/Output Intake/Output: Intake & Output 11/24/24 11/25/24 11/26/24 11/27/24 23:59 23:59 23:59 23:59 Intake Total 550 1460 1240 Output Total 500 Balance 422 424 6842 Meds/Results Medications: Active Medications Generic Name Dose Route Start Last Admin Trade Name Freq PRN Reason Stop Dose Admin Acetaminophen 1,000 mg 11/25/24 20:43 Acetaminophen 500 Mg Tablet PO Q6H PRN Mild Pain (1-3) or Fever Hydrocodone Bitart/Acetaminophen 1 tab 11/25/24 20:43 Hydrocodone/Acetaminophen (*Crx) 7.5-325 Mg Tablet PO Q6H PRN Pain Rated 4-6 Calcium Carbonate 200 mg 11/25/24 20:43 Calcium Carbonate (Tums) 500 Mg (200 Mg Elemental) PO Q6H PRN Indigestion Doxycycline Hyclate 100 mg 12/03/24 09:00 Doxycycline Hyclate 100 Mg Tablet PO Q12HR DAREN Ferrous Sulfate 325 mg 11/26/24 11:00 11/26/24 23:14 Ferrous Sulfate [address] PO 325 mg 1100,1800 DAREN Administration Furosemide 20 mg 11/26/24 09:00 11/27/24 08:37 Furosemide 20 Mg Tablet PO 20 mg DAILY DAREN Administration Cefepime HCl 1 gm in 50 mls @ 100 mls/hr 11/26/24 08:00 11/27/24 08:37 Maxipime 1 Gm/Ns 50 Ml IVPB 100 mls/hr Q12H DAREN Administration Losartan Potassium 50 mg 11/26/24 09:00 11/27/24 08:37 Losartan Potassium 50 Mg Tablet PO 50 mg DAILY DAREN Administration Melatonin 5 mg 11/26/24 21:00 11/26/24 21:02 Melatonin 5 Mg Tablet PO 5 mg HS DAREN Administration Metformin HCl 1,000 mg 11/26/24 08:00 11/27/24 08:37 Metformin Hcl Xr 500 Mg Tab.Sr.24h PO 1,000 mg BIDWM DAREN Administration Metoprolol Succinate 25 mg 11/27/24 10:07 Metoprolol Succinate Ext Rel 25 Mg Tabcr PO BID DAREN Morphine Sulfate 4 mg 11/25/24 20:43 Morphine Sulfate (*Crx) 4 Mg/Ml Inj IV PUSH Q4H PRN Pain Rated 7-10 Ondansetron HCl 4 mg 11/25/24 20:43 Ondansetron Inj 4 Mg/2 Ml Vial IV PUSH Q6H PRN Nausea And Vomiting Oxycodone/Acetaminophen 1 tab 11/26/24 03:55 Oxycodone/Acetaminophen (*Crx) 10-325 Mg Tablet PO Q6H PRN pain 7-10 Perflutren Lipid Microsphere 0 ml 11/26/24 16:20 Perflutren Lipid Microspheres 1.5 Ml Vial Diluted To 10 Ml Total Volume IV PUSH 11/29/24 16:21 ONCE PRN adequate visualization Protocol Vitamin D 5,000 units 11/26/24 17:00 11/26/24 16:06 Cholecalciferol 5,000 Units Tablet PO 5,000 units 1700 DAREN Administration Radiology Results: ITS Impressions Chest X-Ray 11/25/24 17:19 IMPRESSION: Subsegmental atelectasis/consolidation in the left lung base. Patchy airspace opacities in the bilateral lower lungs may represent edema or infection. Moderate left and small right pleural effusions. Osseous metastases. Labs Labs: Laboratory Results - last 24 hr 11/26/24 11/27/24 14:44 03:43 WBC 6.4 RBC 3.12 L Hgb 8.3 L Hct 27.5 L MCV 88.1 MCH 26.6 MCHC 30.2 L RDW 26.5 H Plt Count 318 MPV 8.9 Sodium 139 Potassium 4.2 4.3 Chloride 112 H Carbon Dioxide 16 L Anion Gap 11 BUN 22 H Creatinine 0.81 Estim Creat Clear Calc 62 Estimated GFR > 60 Glucose 76 Calcium 7.5 L 6.7 L Magnesium 1.9 2.0 Total Bilirubin 0.2 AST 20 ALT 19 Alkaline Phosphatase 790 H Total Protein 6.0 L Albumin 3.1 L Quality VTE Prophylaxis VTE prophylaxis: mechanical ordered
[2024-11-27] MEDS: FERROUS SULFATE 325 MG TABLET DR PO ×2 (11:10→18:00)
[2024-11-27] MEDS: METOPROLOL SUCCINATE EXT REL 25 MG TABCR PO ×2 (11:10→20:08)
[2024-11-27] MEDS: HYDROCORTISONE 1% 30 GM CREAM 1 APPLIC TOPICAL ×2 (11:25→20:08)
[2024-11-27] MEDS: AMIODARONE 150 MG/D5W 100 ML 150 MG/100 ML BAG 600 MG IV CONT ×2 (17:52→18:18)
[2024-11-27] MEDS: CHOLECALCIFEROL 5,000 UNITS TABLET 5000 UNITS PO (17:58)
--- NOTE | 2024-11-27 19:37 | PC.NURSE ---
Patient 1700 metoprolol held until IV amio completed and blood pressure check was completed with night meds.
[2024-11-27] MEDS: MELATONIN 5 MG TABLET PO (20:07)
[2024-11-28] VITALS (16 sets, daily range): BP systolic 113–129; BP diastolic 51–64; PULSE 60–80; RESP 16–20; TEMP 36.2–36.6; O2SAT 97–100
[2024-11-28 04:19] LABS: Hematocrit 27.8 % (42.0-52.0); Mean Corpuscular HGB Conc 28.8 g/dl (32-36); Mean Corpuscular Hemoglobin 26.1 pg (26-34); Mean Corpuscular Volume 90.8 fl (80-100); Mean Platelet Volume 8.9 fl (7.4-10.4); Platelet Count Result 302 k/mm3 (150-375); Red Blood Count 3.06 M/mm3 (4.6-6.20); Red Cell Distribution Width 27.1 % (11.5-14.5)
[2024-11-28 04:31] LABS: Alanine Aminotransferase 17 U/L (6-50); Alkaline Phosphatase 758 U/L (38-126); Anion Gap 10 mmol/L (4-12); Aspartate Amino Transferase 18 U/L (17-59); Bilirubin,Total 0.3 mg/dL (0.2-1.3); Blood Urea Nitrogen 18 mg/dL (9-20); Calcium 6.7 mg/dL (8.4-10.2); Carbon Dioxide 16 mmol/L (22-30); Chloride 115 mmol/L (98-107); Estimated CRCL calculation 63 ml/min; Estimated Glomerular Filt Rate > 60; Glucose 84 mg/dL (65-110); Magnesium 1.9 mg/dL (1.6-2.3); Potassium 4.5 mmol/L (3.4-5.0); Sodium 141 mmol/L (137-145)
[2024-11-28] MEDS: AMIODARONE HCL 200 MG TABLET PO ×3 (06:05→21:06)
[2024-11-28] MEDS: metFORMIN HCL XR 500 MG TAB.SR.24H 1000 MG PO ×2 (08:44→17:51)
[2024-11-28] MEDS: LOSARTAN POTASSIUM 50 MG TABLET PO (08:44)
[2024-11-28] MEDS: METOPROLOL SUCCINATE EXT REL 25 MG TABCR PO ×2 (08:44→17:52)
[2024-11-28] MEDS: FUROSEMIDE 20 MG TABLET PO (08:44)
[2024-11-28] MEDS: HYDROCORTISONE 1% 30 GM CREAM 1 APPLIC TOPICAL (08:45)
[2024-11-28] MEDS: MAGNESIUM SULF 1 GM/D5W 100 ML 1 GM/100 ML BAG IVPB (08:48)
[2024-11-28] MEDS: CALCIUM GLUC 2,000 MG/NS 100ML 2,000 MG/100 ML BAG 100 MG IVPB (08:49)
--- NOTE | 2024-11-28 09:59 | P.PNCA_ITS ---
Progress Note: A&P Assessment and Plan (1) Atrial fibrillation with RVR: Code(s): I48.91 - Unspecified atrial fibrillation Status: Acute (2) CAD (coronary artery disease), [place] coronary artery: Qualifiers: Associated angina: without angina [place] vs. transplanted heart: [place] heart Qualified Code(s): I25.10 - Atherosclerotic heart disease of [place] coronary artery without angina pectoris Code(s): I25.10 - Atherosclerotic heart disease of [place] coronary artery without angina pectoris Status: Chronic (3) Essential hypertension: Code(s): I10 - Essential (primary) hypertension Status: Chronic (4) Mixed hyperlipidemia: Code(s): E78.2 - Mixed hyperlipidemia Status: Acute Plan Problem list: 1. Symptomatic paroxysmal atrial fibrillation with RVR on metoprolol-he goes in and out of AFib spontaneously converting back to SR; when he has A fib his rates are up to the 140s and he is symptomatic with lightheadedness, when he is in sinus rhythm his rates are well controlled in the 60s to 90s range -- troponin negative -- echo in 2019 showed normal LVEF of 70%, mild MR, mild TR, moderate AR 2. Hypertension 3. CAD 4. Tobacco use disorder 5. Chronic iron deficiency anemia secondary to GI bleed 6. Hyperlipidemia 7. Obstructive sleep apnea CPAP 8. Type 2 diabetes mellitus 9. Metastatic prostate cancer with bone Mets Plan: -Continue metoprolol 25mg PO BID -Given frequent symptomatic paroxysms of AFib with RVR with rates in the 140s, amiodarone was added. Continue amiodarone 200 mg TID for 10 days, then 200mg once daily. -Continue Lasix and losartan at home dose -High chads Vasc score but unable to take anticoagulation due to GI bleed and anemia. Recommend outpatient evaluation for left atrial appendage occlusion if life span estimated more than 1 year from metastatic prostatic cancer -EF 65-70% with mild AI, MR, and TR -Check renal function and electrolytes daily. Replace electrolytes as needed to keep potassium greater than 4 and magnesium greater than 2 -Cardiology will sign off please call with questions. Subjective Date/time seen: 11/28/24 09:59 Interval history: Reason for encounter: AFib with RVR Relevant history: 79-year-old male with past medical history of hypertension, paroxysmal atrial fibrillation not on anticoagulation due to GI bleed, CAD, tobacco use disorder, hyperlipidemia, obstructive sleep apnea CPAP, type 2 diabetes mellitus,metastatic prostate cancer with bone Mets in palliative care, pleural effusion, chronic pain, tubular adenoma of colon, rectal bleed, benign paroxysmal positional vertigo was admitted with chief complaints of palpitation and lightheadedness. In the ER he was noted to be in AFib with RVR and spontaneously converted back to sinus rhythm. He flipped back to AFib yesterday evening with rates up to the 140s and symptoms of lightheadedness but spontaneously converted back to sinus rhythm last night. He remains in sinus rhythm. Interval history: Patient remains asymptomatic. He denies any chest pain, shortness of breath, palpitations. Review of telemetry shows he was back in AFib with RVR (rates ranging up to 140s) yesterday evening, then converted back spontaneously to sinus rhythm and remains in sinus rhythm this morning with rates in the 60s. 11/28/2024: Has remained in sinus rhythm for >24 hours at this point. His only complaint is a rash on multiple locations of his body. He has had this rash in the past but it comes back. Denies any chest pain, shortness of breath. Review of Systems Review of Systems: A complete review of systems was performed and pertinent positives are noted in the HPI Exam Narrative: General: Alert oriented x3, no acute distress Neck: Supple, no JVD Chest: Bilaterally clear to auscultation, no rales or rhonchi Cardiac: S1, S2 +, regular rate, regular rhythm, no murmurs or rubs Extremities: No pedal edema, rash on chest, left arm, legs Neurologic: Alert and oriented x3, no focal neurological deficits Objective Data Vital Signs Vital Signs: Vital Signs - 24 hr 11/27/24 10:00 11/27/24 11:01 11/27/24 11:10 Temperature 36.6 C Pulse Rate 67 69 69 Respiratory Rate 18 Blood Pressure 126/97 H Pulse Oximetry 99 Oxygen Delivery Fraction of Inspired Oxygen 11/27/24 12:00 11/27/24 14:00 11/27/24 15:54 Temperature 36.7 C Pulse Rate 64 71 68 Respiratory Rate 20 Blood Pressure 138/85 Pulse Oximetry 100 Oxygen Delivery Fraction of Inspired Oxygen 11/27/24 16:00 11/27/24 17:52 11/27/24 18:00 Temperature Pulse Rate 66 79 75 Respiratory Rate Blood Pressure Pulse Oximetry Oxygen Delivery Fraction of Inspired Oxygen 11/27/24 18:03 11/27/24 18:18 11/27/24 19:56 Temperature 36.9 C Pulse Rate 69 69 65 Respiratory Rate 16 Blood Pressure 116/50 L Pulse Oximetry 100 Oxygen Delivery Fraction of Inspired Oxygen 11/27/24 20:00 11/27/24 20:00 11/27/24 20:08 Temperature Pulse Rate 68 66 Respiratory Rate Blood Pressure Pulse Oximetry Oxygen Delivery Room Air Fraction of Inspired Oxygen 11/27/24 20:34 11/27/24 22:00 11/27/24 23:30 Temperature 36.8 C Pulse Rate 63 76 63 Respiratory Rate 20 16 Blood Pressure 116/50 L Pulse Oximetry 98 99 Oxygen Delivery Room Air Fraction of Inspired Oxygen 21 11/28/24 00:00 11/28/24 00:00 11/28/24 02:00 Temperature Pulse Rate 67 64 Respiratory Rate Blood Pressure Pulse Oximetry Oxygen Delivery Room Air Fraction of Inspired Oxygen 11/28/24 03:32 11/28/24 04:00 11/28/24 04:00 Temperature 36.5 C Pulse Rate 60 61 Respiratory Rate 16 Blood Pressure 113/64 Pulse Oximetry 100 Oxygen Delivery Room Air Fraction of Inspired Oxygen 11/28/24 06:00 11/28/24 06:05 11/28/24 08:27 Temperature 36.6 C Pulse Rate 71 65 60 Respiratory Rate 18 Blood Pressure 115/51 L Pulse Oximetry 100 Oxygen Delivery Fraction of Inspired Oxygen 11/28/24 08:44 Temperature Pulse Rate 70 Respiratory Rate Blood Pressure Pulse Oximetry Oxygen Delivery Fraction of Inspired Oxygen Intake/Output Intake/Output: Intake & Output 11/25/24 11/26/24 11/27/24 11/28/24 23:59 23:59 23:59 23:59 Intake Total 550 1460 2330 1240 Output Total 500 600 Balance 901 304 0898 640 Meds/Results Medications: Active Medications Generic Name Dose Route Start Last Admin Trade Name Freq PRN Reason Stop Dose Admin Acetaminophen 1,000 mg 11/25/24 20:43 Acetaminophen 500 Mg Tablet PO Q6H PRN Mild Pain (1-3) or Fever Hydrocodone Bitart/Acetaminophen 1 tab 11/25/24 20:43 Hydrocodone/Acetaminophen (*Crx) 7.5-325 Mg Tablet PO Q6H PRN Pain Rated 4-6 Amiodarone HCl 200 mg 11/28/24 06:00 11/28/24 06:05 Amiodarone Hcl 200 Mg Tablet PO 200 mg Q8HR DAREN Administration Calcium Carbonate 200 mg 11/25/24 20:43 Calcium Carbonate (Tums) 500 Mg (200 Mg Elemental) PO Q6H PRN Indigestion Doxycycline Hyclate 100 mg 12/03/24 09:00 Doxycycline Hyclate 100 Mg Tablet PO Q12HR DAREN Ferrous Sulfate 325 mg 11/26/24 11:00 11/27/24 18:00 Ferrous Sulfate [address] PO 325 mg 1100,1800 DAREN Administration Furosemide 20 mg 11/26/24 09:00 11/28/24 08:44 Furosemide 20 Mg Tablet PO 20 mg DAILY DAREN Administration Hydrocortisone 1 applic 11/27/24 11:00 11/28/24 08:45 Hydrocortisone 1% 30 Gm Cream TOPICAL 1 applic Q12HR DAREN Administration Cefepime HCl 1 gm in 50 mls @ 100 mls/hr 11/26/24 08:00 11/27/24 20:08 Maxipime 1 Gm/Ns 50 Ml IVPB 100 mls/hr Q12H DAREN Administration Losartan Potassium 50 mg 11/26/24 09:00 11/28/24 08:44 Losartan Potassium 50 Mg Tablet PO 50 mg DAILY DAREN Administration Melatonin 5 mg 11/26/24 21:00 11/27/24 20:07 Melatonin 5 Mg Tablet PO 5 mg HS DAREN Administration Metformin HCl 1,000 mg 11/26/24 08:00 11/28/24 08:44 Metformin Hcl Xr 500 Mg Tab.Sr.24h PO 1,000 mg BIDWM DAREN Administration Metoprolol Succinate 25 mg 11/27/24 19:40 11/28/24 08:44 Metoprolol Succinate Ext Rel 25 Mg Tabcr PO 25 mg BID DAREN Administration Morphine Sulfate 4 mg 11/25/24 20:43 Morphine Sulfate (*Crx) 4 Mg/Ml Inj IV PUSH Q4H PRN Pain Rated 7-10 Ondansetron HCl 4 mg 11/25/24 20:43 Ondansetron Inj 4 Mg/2 Ml Vial IV PUSH Q6H PRN Nausea And Vomiting Oxycodone/Acetaminophen 1 tab 11/26/24 03:55 Oxycodone/Acetaminophen (*Crx) 10-325 Mg Tablet PO Q6H PRN pain 7-10 Perflutren Lipid Microsphere 0 ml 11/26/24 16:20 Perflutren Lipid Microspheres 1.5 Ml Vial Diluted To 10 Ml Total Volume IV PUSH 11/29/24 16:21 ONCE PRN adequate visualization Protocol Vitamin D 5,000 units 11/26/24 17:00 11/27/24 17:58 Cholecalciferol 5,000 Units Tablet PO 5,000 units 1700 DAREN Administration Radiology Results: ITS Impressions Chest X-Ray 11/25/24 17:19 IMPRESSION: Subsegmental atelectasis/consolidation in the left lung base. Patchy airspace opacities in the bilateral lower lungs may represent edema or infection. Moderate left and small right pleural effusions. Osseous metastases. Labs Labs: Laboratory Results - last 24 hr 11/28/24 03:54 WBC 6.0 RBC 3.06 L Hgb 8.0 L Hct 27.8 L MCV 90.8 MCH 26.1 MCHC 28.8 L RDW 27.1 H Plt Count 302 MPV 8.9 Sodium 141 Potassium 4.5 Chloride 115 H Carbon Dioxide 16 L Anion Gap 10 BUN 18 Creatinine 0.80 Estim Creat Clear Calc 63 Estimated GFR > 60 Glucose 84 Calcium 6.7 L Magnesium 1.9 Total Bilirubin 0.3 AST 18 ALT 17 Alkaline Phosphatase 758 H Total Protein 6.0 L Albumin 3.0 L Quality VTE Prophylaxis VTE prophylaxis: mechanical ordered
[2024-11-28] MEDS: AMOXICILLIN/CLAVULANATE K 875-125 MG TAB 1 TABLET PO ×2 (11:28→21:05)
[2024-11-28] MEDS: DOXYCYCLINE HYCLATE 100 MG TABLET PO ×2 (11:28→21:06)
[2024-11-28] MEDS: FERROUS SULFATE 325 MG TABLET DR PO ×2 (11:28→17:51)
--- NOTE | 2024-11-28 12:12 | P.PNIM_ITS ---
Progress Note: A&P Assessment and Plan (1) Atrial fibrillation with RVR: Code(s): I48.91 - Unspecified atrial fibrillation Status: Acute Assessment and Plan: * Telemetry * Self converted once right to ER * Consider diltiazem if converts back * Cardiology consult placed. Patient having intermittent episodes of atrial fibrillation. Metoprolol succinate 25 mg PO BID. * Received Lopressor in ER * Not currently anticoagulated, will order SCDs and reconsider pharmacological anticoagulation if symptoms recur. * TSH 0.597 * Echo today showed: Summary 1. Left ventricular chamber dimension is normal. 2. Left ventricular systolic function is normal, estimated at 65-70%. 3. There is mildly increased left ventricular wall thickness. 4. The left ventricular diastolic function is grade I diastolic dysfunction. 5. Right ventricular systolic function is normal. 6. Left atrial chamber dimension is moderately enlarged. 7. Right atrial chamber dimension is mildly enlarged. 8. There is mild aortic valve regurgitation. 9. There is mild mitral valve regurgitation. 10. There is mild tricuspid valve regurgitation. * Cardiology ordered to start Amiodarone 300mg IV once, then 200 mg TID for 10 days, then 200mg once daily. * Replace electrolytes as needed to keep potassium greater than 4 and magnesium greater than 2. (2) Abnormal chest x-ray: Code(s): R93.89 - Abnormal findings on diagnostic imaging of other specified body structures Status: Acute Assessment and Plan: * Chest x-ray showing concerning for potentially developing consolidation. * Blood cultures no growth to date. * No leukocytosis. * Patient received doxy and cefepime in the ER, will continue at this time. * Monitor and trend labs and vitals. 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 Patient's oncologist is Dr. Carlin at [facility]. It is noted in the most recent oncology note that patient specifically does not want to know the details of his cancer diagnosis nor do his children. * Currently receiving palliative care. * Will provide pain medications for patient as needed. (4) Chronic pain: Code(s): G89.29 - Other chronic pain Status: Chronic Assessment and Plan: * See 3. (5) Hypomagnesemia: Code(s): E83.42 - Hypomagnesemia Status: Acute Assessment and Plan: * Magnesium 1.9. * Keep magnesium >2. * Magnesium Sulfate 1 gram IVPB x 1. * Trend levels. (6) Hypocalcemia: Code(s): E83.51 - Hypocalcemia Status: Acute Assessment and Plan: * Calcium level 6.7. * Calcium Gluconate 2 gram ivpb x1 given. * Trend levels. (7) Elevated alkaline phosphatase level: Code(s): R74.8 - Abnormal levels of other serum enzymes Status: Acute Assessment and Plan: * 973 on admission. Trending down: 973>806>790>758. * Monitor and trend level. (8) Atopic dermatitis: Code(s): L20.9 - Atopic dermatitis, unspecified Status: Acute Assessment and Plan: * Triamcinolone 0.1 cream BID. Subjective Date/time seen: 11/28/24 12:12 Interval history: Patient sitting up on the side of the bed. Patient denies chest pain, palpitations, headache, dizziness, nausea, or vomiting. Patient reports that cream is not helping rash on chest. Review of Systems Review of Systems: All systems reviewed & are unremarkable except as noted in HPI and below Exam Const: General: comfortable and no acute distress Resp: Effort & Inspection: normal respiratory effort Auscultation: clear to auscultation bilaterally Cardio: Rate: regular rate Rhythm: regular rhythm Other: Telemetry- SR 64. GI: GI Palp: Yes Soft to palpation Auscultation: normal bowel sounds Skin: Other: Raised rash pink right upper chest area. Neuro: Speech: normal speech Extrem: General: no pedal edema Psych: Mental Status: mental status grossly normal Affect: normal affect Objective Data Vital Signs Vital Signs: Vital Signs - 24 hr 11/27/24 14:00 11/27/24 15:54 11/27/24 16:00 Temperature 98.1 F Pulse Rate 71 68 66 Respiratory Rate 20 Blood Pressure 138/85 Pulse Oximetry 100 Oxygen Delivery Fraction of Inspired Oxygen 11/27/24 17:52 11/27/24 18:00 11/27/24 18:03 Temperature Pulse Rate 79 75 69 Respiratory Rate Blood Pressure Pulse Oximetry Oxygen Delivery Fraction of Inspired Oxygen 11/27/24 18:18 11/27/24 19:56 11/27/24 20:00 Temperature 98.4 F Pulse Rate 69 65 Respiratory Rate 16 Blood Pressure 116/50 L Pulse Oximetry 100 Oxygen Delivery Room Air Fraction of Inspired Oxygen 11/27/24 20:00 11/27/24 20:08 11/27/24 20:34 Temperature Pulse Rate 68 66 63 Respiratory Rate 20 Blood Pressure Pulse Oximetry 98 Oxygen Delivery Room Air Fraction of Inspired Oxygen 21 11/27/24 22:00 11/27/24 23:30 11/28/24 00:00 Temperature 98.2 F Pulse Rate 76 63 67 Respiratory Rate 16 Blood Pressure 116/50 L Pulse Oximetry 99 Oxygen Delivery Fraction of Inspired Oxygen 11/28/24 00:00 11/28/24 02:00 11/28/24 03:32 Temperature 97.7 F Pulse Rate 64 60 Respiratory Rate 16 Blood Pressure 113/64 Pulse Oximetry 100 Oxygen Delivery Room Air Fraction of Inspired Oxygen 11/28/24 04:00 11/28/24 04:00 11/28/24 06:00 Temperature Pulse Rate 61 71 Respiratory Rate Blood Pressure Pulse Oximetry Oxygen Delivery Room Air Fraction of Inspired Oxygen 11/28/24 06:05 11/28/24 08:00 11/28/24 08:00 Temperature Pulse Rate 65 70 Respiratory Rate Blood Pressure Pulse Oximetry Oxygen Delivery Room Air Fraction of Inspired Oxygen 11/28/24 08:27 11/28/24 08:44 11/28/24 10:00 Temperature 97.8 F Pulse Rate 60 70 65 Respiratory Rate 18 Blood Pressure 115/51 L Pulse Oximetry 100 Oxygen Delivery Fraction of Inspired Oxygen 11/28/24 11:42 Temperature 97.6 F Pulse Rate 62 Respiratory Rate 20 Blood Pressure 129/63 Pulse Oximetry 100 Oxygen Delivery Fraction of Inspired Oxygen Intake/Output Intake/Output: Intake & Output 11/25/24 11/26/24 11/27/24 11/28/24 23:59 23:59 23:59 23:59 Intake Total 550 1460 2330 1340 Output Total 500 1000 Balance 042 066 2334 340 Meds/Results Medications: Active Medications Generic Name Dose Route Start Last Admin Trade Name Freq PRN Reason Stop Dose Admin Acetaminophen 1,000 mg 11/25/24 20:43 Acetaminophen 500 Mg Tablet PO Q6H PRN Mild Pain (1-3) or Fever Hydrocodone Bitart/Acetaminophen 1 tab 11/25/24 20:43 Hydrocodone/Acetaminophen (*Crx) 7.5-325 Mg Tablet PO Q6H PRN Pain Rated 4-6 Amiodarone HCl 200 mg 11/28/24 06:00 11/28/24 06:05 Amiodarone Hcl 200 Mg Tablet PO 200 mg Q8HR DAREN Administration Amoxicillin/Clavulanate Potassium 1 tablet 11/28/24 11:00 11/28/24 11:28 Amoxicillin/Clavulanate K 875-125 Mg Tab PO 12/02/24 21:01 1 tablet Q12HR DAREN Administration Calcium Carbonate 200 mg 11/25/24 20:43 Calcium Carbonate (Tums) 500 Mg (200 Mg Elemental) PO Q6H PRN Indigestion Doxycycline Hyclate 100 mg 11/28/24 11:00 11/28/24 11:28 Doxycycline Hyclate 100 Mg Tablet PO 12/02/24 21:01 100 mg Q12HR DAREN Administration Ferrous Sulfate 325 mg 11/26/24 11:00 11/28/24 11:28 Ferrous Sulfate [address] PO 325 mg 1100,1800 DAREN Administration Furosemide 20 mg 11/26/24 09:00 11/28/24 08:44 Furosemide 20 Mg Tablet PO 20 mg DAILY DAREN Administration Losartan Potassium 50 mg 11/26/24 09:00 11/28/24 08:44 Losartan Potassium 50 Mg Tablet PO 50 mg DAILY DAREN Administration Melatonin 5 mg 11/26/24 21:00 11/27/24 20:07 Melatonin 5 Mg Tablet PO 5 mg HS DAREN Administration Metformin HCl 1,000 mg 11/26/24 08:00 11/28/24 08:44 Metformin Hcl Xr 500 Mg Tab.Sr.24h PO 1,000 mg BIDWM DAREN Administration Metoprolol Succinate 25 mg 11/27/24 19:40 11/28/24 08:44 Metoprolol Succinate Ext Rel 25 Mg Tabcr PO 25 mg BID DAREN Administration Morphine Sulfate 4 mg 11/25/24 20:43 Morphine Sulfate (*Crx) 4 Mg/Ml Inj IV PUSH Q4H PRN Pain Rated 7-10 Ondansetron HCl 4 mg 11/25/24 20:43 Ondansetron Inj 4 Mg/2 Ml Vial IV PUSH Q6H PRN Nausea And Vomiting Oxycodone/Acetaminophen 1 tab 11/26/24 03:55 Oxycodone/Acetaminophen (*Crx) 10-325 Mg Tablet PO Q6H PRN pain 7-10 Perflutren Lipid Microsphere 0 ml 11/26/24 16:20 Perflutren Lipid Microspheres 1.5 Ml Vial Diluted To 10 Ml Total Volume IV PUSH 11/29/24 16:21 ONCE PRN adequate visualization Protocol Triamcinolone Acetonide 1 applic 11/28/24 21:00 Triamcinolone Acet 0.1% Cream 15 Gm Tube TOPICAL Q12HR DAREN Vitamin D 5,000 units 11/26/24 17:00 11/27/24 17:58 Cholecalciferol 5,000 Units Tablet PO 5,000 units 1700 DAREN Administration Radiology Results: ITS Impressions Chest X-Ray 11/25/24 17:19 IMPRESSION: Subsegmental atelectasis/consolidation in the left lung base. Patchy airspace opacities in the bilateral lower lungs may represent edema or infection. Moderate left and small right pleural effusions. Osseous metastases. Labs Labs: Laboratory Results - last 24 hr 11/28/24 03:54 WBC 6.0 RBC 3.06 L Hgb 8.0 L Hct 27.8 L MCV 90.8 MCH 26.1 MCHC 28.8 L RDW 27.1 H Plt Count 302 MPV 8.9 Sodium 141 Potassium 4.5 Chloride 115 H Carbon Dioxide 16 L Anion Gap 10 BUN 18 Creatinine 0.80 Estim Creat Clear Calc 63 Estimated GFR > 60 Glucose 84 Calcium 6.7 L Magnesium 1.9 Total Bilirubin 0.3 AST 18 ALT 17 Alkaline Phosphatase 758 H Total Protein 6.0 L Albumin 3.0 L Quality VTE Prophylaxis VTE prophylaxis: mechanical ordered
--- NOTE | 2024-11-28 15:02 | PC.NURSE ---
This patient, Ej Steen, was transferred to [facility] on 11/28/24 at 1422. Personal belongings sent with patient. Report given to RADHA TRAMMELL. Appropriate documentation sent with patient.
--- NOTE | 2024-11-28 15:04 | PC.NURSE ---
This patient, Ej Steen, was received from 200/[facility] on 11/28/24 at 1504. Patient/family oriented to unit policies and routines.
[2024-11-28] MEDS: CHOLECALCIFEROL 5,000 UNITS TABLET 5000 UNITS PO (17:52)
[2024-11-28] MEDS: MELATONIN 5 MG TABLET PO (21:06)
[2024-11-29] VITALS: PULSE 68
[2024-11-29 04:00] VITALS: PULSE 63
[2024-11-29 04:31] VITALS: BP 110/50; PULSE 66; RESP 16; TEMP 36.6; O2SAT 97
[2024-11-29 06:00] LABS: Hematocrit 28.5 % (42.0-52.0); Hemoglobin 8.4 g/dL (14.0-18.0); Mean Corpuscular HGB Conc 29.5 g/dl (32-36); Mean Corpuscular Hemoglobin 26.2 pg (26-34); Mean Corpuscular Volume 88.8 fl (80-100); Mean Platelet Volume 8.5 fl (7.4-10.4); Platelet Count Result 308 k/mm3 (150-375); Red Blood Count 3.21 M/mm3 (4.6-6.20); Red Cell Distribution Width 26.9 % (11.5-14.5); White Blood Count 6.4 K/mm3 (4.5-10.0)
[2024-11-29 06:05] VITALS: PULSE 67
[2024-11-29] MEDS: AMIODARONE HCL 200 MG TABLET PO (06:05)
[2024-11-29 06:14] LABS: Alanine Aminotransferase 19 U/L (6-50); Albumin Level 3.5 g/dL (3.5-5.1); Alkaline Phosphatase 892 U/L (38-126); Anion Gap 8 mmol/L (4-12); Aspartate Amino Transferase 27 U/L (17-59); Bilirubin,Total 0.5 mg/dL (0.2-1.3); Blood Urea Nitrogen 21 mg/dL (9-20); Calcium 7.3 mg/dL (8.4-10.2); Carbon Dioxide 18 mmol/L (22-30); Chloride 112 mmol/L (98-107); Estimated CRCL calculation 59 ml/min; Estimated Glomerular Filt Rate > 60; Glucose 83 mg/dL (65-110); Magnesium 1.8 mg/dL (1.6-2.3); Potassium 4.7 mmol/L (3.4-5.0); Sodium 138 mmol/L (137-145)
[2024-11-29 07:54] LABS: Glucose Point of Care 82 mg/dl (65-105)
[2024-11-29] MEDS: FUROSEMIDE 20 MG TABLET PO (09:24)
[2024-11-29] MEDS: metFORMIN HCL XR 500 MG TAB.SR.24H 1000 MG PO (09:24)
[2024-11-29] MEDS: DOXYCYCLINE HYCLATE 100 MG TABLET PO (09:24)
[2024-11-29] MEDS: AMOXICILLIN/CLAVULANATE K 875-125 MG TAB 1 TABLET PO (09:24)
[2024-11-29] MEDS: LOSARTAN POTASSIUM 50 MG TABLET PO (09:24)
[2024-11-29 09:25] VITALS: PULSE 64
[2024-11-29] MEDS: METOPROLOL SUCCINATE EXT REL 25 MG TABCR PO (09:25)
[2024-11-29 11:56] LABS: Glucose Point of Care 113 mg/dl (65-105)
--- NOTE | 2024-11-29 12:09 | P.DS_ITS ---
DS: Admitting Diagnosis Discharge Date 11/29/24 Admitting Diagnosis Palpitations DS: Discharge Diagnosis Discharge Diagnosis (1) Hypomagnesemia: Code(s): E83.42 - Hypomagnesemia Status: Acute (2) Hypocalcemia: Code(s): E83.51 - Hypocalcemia Status: Acute (3) Atrial fibrillation with RVR: Code(s): I48.91 - Unspecified atrial fibrillation Status: Acute (4) Metastatic cancer: Code(s): C79.9 - Secondary malignant neoplasm of unspecified site Status: Chronic (5) Chronic pain: Code(s): G89.29 - Other chronic pain Status: Chronic (6) Elevated alkaline phosphatase level: Code(s): R74.8 - Abnormal levels of other serum enzymes Status: Acute (7) Atopic dermatitis: Code(s): L20.9 - Atopic dermatitis, unspecified Status: Acute (8) Pneumonia: Qualifiers: Laterality: bilateral Lung location: lower lobe of lung Pneumonia type: due to unspecified organism Qualified Code(s): J18.9 - Pneumonia, unspecified organism Code(s): J18.9 - Pneumonia, unspecified organism Status: Acute DS: Summary Hospital Course Hospital Course: In the emergency room workup was performed including labs, EKG and imaging. Chest x-ray showing subsegmental atelectasis/consolidation in the left lung base with patchy airspace opacities in the bilateral lower lungs representing edema or infection. There is moderate left and small right pleural effusions with multiple osseous metastasis. Initial EKG showing AFib RVR with rate in the 130s. After self converted patient has been normal sinus rhythm with a rate in the 60s. Labs arm showing normal troponin, normal magnesium 1.7, CBC consistent with patient's history of anemia, metabolic panel unremarkable. Patient received IV fluids in the emergency room, IV Push Lopressor and doxycycline and cefepime empirically for concern of a developing pneumonia as evidenced by chest x-ray. -Echocardiogram showed: Summary 1. Left ventricular chamber dimension is normal. 2. Left ventricular systolic function is normal, estimated at 65-70%. 3. There is mildly increased left ventricular wall thickness. 4. The left ventricular diastolic function is grade I diastolic dysfunction. 5. Right ventricular systolic function is normal. 6. Left atrial chamber dimension is moderately enlarged. 7. Right atrial chamber dimension is mildly enlarged. 8. There is mild aortic valve regurgitation. 9. There is mild mitral valve regurgitation. 10. There is mild tricuspid valve regurgitation. Blood cultures no growth to date. Cardiology consulted with medication adjustments (Metoprolol Succinate 25 mg PO BID) and addition of Amiodarone ( Continue amiodarone 200 mg TID for 10 days, then 200mg once daily).. Patient SR- 64 on discharge. Received magnesium and calcium replacement. High Chads Vasc score but unable to take anticoagulation due to GI bleed and anemia. Recommend outpatient evaluation for left atrial appendage occlusion if life span estimated more than 1 year from metastatic prostatic cancer. Family aware to make appointment with Dr. Gaines for further evaluation. Status at Discharge Functional status at discharge: uses cane/walker Overall status at discharge: patient is progressing back to baseline Time Spent with Patient Time attestation: Total time spent providing and/or coordinating discharge services: Time spent: Greater than 30 minutes Exam Const: General: comfortable and no acute distress Resp: Effort & Inspection: normal respiratory effort Auscultation: clear to auscultation bilaterally Cardio: Rate: regular rate Rhythm: regular rhythm Other: Telemetry- SR 64. GI: GI Palp: Yes Soft to palpation Auscultation: normal bowel sounds Skin: Other: Raised rash pink right upper chest area. No drainage. Fading a little. Neuro: General: gait normal Extrem: General: no pedal edema Psych: Mental Status: mental status grossly normal Affect: normal affect DS: Data Data Completed and Pending Labs on day of discharge: Labs from last 24 hours 11/29/24 11/29/24 11/29/24 11:51 07:51 05:50 WBC 6.4 RBC 3.21 L Hgb 8.4 L Hct 28.5 L MCV 88.8 MCH 26.2 MCHC 29.5 L RDW 26.9 H Plt Count 308 MPV 8.5 Sodium 138 Potassium 4.7 Chloride 112 H Carbon Dioxide 18 L Anion Gap 8 BUN 21 H Creatinine 0.86 Estim Creat Clear Calc 59 Estimated GFR > 60 Glucose 83 POC Capillary Glucose 113 H 82 Calcium 7.3 L Magnesium 1.8 Total Bilirubin 0.5 AST 27 ALT 19 Alkaline Phosphatase 892 H Total Protein 7.0 Albumin 3.5 Preliminary micro results at discharge 11/25/24 19:07 Blood Culture - Preliminary Blood 11/25/24 19:07 Blood Culture - Preliminary Blood Discharge Plan Discharge Attending physician on discharge: Concha Lawrence Consulting providers: May Marie Discharging Clinician: Ester Gann Anticipated Discharge Date/Time: 11/29/24 12:30 Patient Disposition: Home Activity: may shower Diet: diabetic Discharge Instructions: * Per Care Coordination: [facility] will resume services at discharge. [facility] will follow for RN services at home. [facility] can be contacted at [phone]. Nursing please fax discharge paperwork to [phone]. * Apply Triamcinolone cream to rash 1 -2 times daily until healed. * Take all doses of antibiotics. * Call Dr. Escamilla office to see if you should be seen earlier. * Report to educational program director if you develop palpitations and headaches like you did when you came to hospital. * Report to provider if you develop fever >101, sputum with color, or shortness of breath that does not improve with rest. * Set up appointment with Dr. Montanez the tank setter for evaluation for left atrial appendage occlusion. * Discuss with primary if you should continue Magnesium and follow levels. Thank you for entrusting [facility] with your healthcare! Patient Instructions: Antibiotic Form, A-fib (Atrial Fibrillation) (DC), Hypomagnesemia (DC), Pneumonia (DC) Patient Language: Wolof Stand Alone Forms: General Discharge Information Follow-up/Referrals: Willie Escamilla MD [Physician] - (12/29/2024 at 9:30. Arrive at 9:15) Andrew Montanez MD [Physician] - Call for Appointment Saw Ga MD [Primary Care Provider] - 1 Week Discharge Medications: New amiodarone [Pacerone] 200 mg Tablet 200 mg PO .see comment Qty: 48 0RF Rx Instructions: TAKE 1 tablet every 8 hours through December 07. STARTING on December 08 take 1 tablet daily. metoprolol succinate [Toprol XL] 25 mg Tablet Extended Release 24 Hr 25 mg PO BID Qty: 60 0RF doxycycline hyclate 100 mg Tablet 100 mg PO Q12HR Qty: 7 0RF amoxicillin-pot clavulanate 875-125 mg tablet 1 tablet PO Q12H Qty: 7 0RF magnesium oxide 400 mg (241.3 mg magnesium) Tablet 400 mg PO BID@1200,1700 Qty: 14 0RF Continued melatonin 5 mg PO HS clotrimazole 1 % solution 1 applic topical . q.h.s. Qty: 30 2RF Rx Instructions: put 4 drops in left ear with ear up towards the ceiling for 30 seconds after q.h.s. cholecalciferol (vitamin D3) [Vitamin D3] 125 mcg (5,000 unit) Tablet 125 mcg PO 1700 ferrous sulfate 325 mg (65 mg iron) tablet 325 mg PO BID metformin 500 mg tablet extended release 24 hr 1,000 mg PO BID losartan 50 mg tablet 50 mg PO DAILY furosemide 20 mg tablet 20 mg PO DAILY oxycodone-acetaminophen [Percocet] 10-325 mg tablet 1 tablet PO Q6H PRN (Reason: pain) Qty: 120 0RF prednisone 20 mg tablet 20 mg PO . q.a.m. Qty: 7 0RF Discontinued metoprolol succinate 25 mg tablet extended release 24 hr 25 mg PO HS Patient Comments: started by educational program director 08/17/2022. Other Ambulatory Orders: Comprehensive Metabolic Panel (Routine) Timeframe: 1 Week Location: Determined by Patient Ordered By: Ester Gann Magnesium (Routine) Timeframe: 1 Week Location: Determined by Patient Ordered By: Ester Gann Date of admission: 11/27/24 14:04 Primary Care Provider: Saw Ga Admitting Provider: Jorge Francis Attending physician on admission: Jorge Francis Condition: Improved Hospitalist MIPS Heart Failure (Exclusion) Patient has history of Heart Transplant or Left Ventricular Assistive Device?: No IF YES, STOP HERE Heart Failure (Qualifier) Patient has current or prior documentation of LVEF less than or equal to 40%, or mod/servere depressed LVSF?: No IF NO, STOP HERE
[2024-11-29] MEDS: FERROUS SULFATE 325 MG TABLET DR PO (12:13)
[2024-11-29] MEDS: MAGNESIUM OXIDE 400 MG TABLET PO (12:13)
== END 2024-11-29 13:08 | disposition home or self-care (01) | DRG 308 ==
LOC: ANHED 19:13 → ANHIMU 20:34 → ANH3MED 11-29 12:11 → ANHIMU 12-01 10:44
PROVIDERS: Nurse Practitioner Adult Health; Nurse Practitioner Family; Admitting Provider Internal Medicine; Emergency Provider Preventive Medicine Aerospace Medicine; PCP Family Medicine; Visit Provider Family Medicine
DX: I48.0 Paroxysmal atrial fibrillation (principal); J18.9 Pneumonia, unspecified organism; C79.51 Secondary malignant neoplasm of bone; I10 Essential (primary) hypertension; I25.10 Atherosclerotic heart disease of native coronary artery without angina pectoris; E83.51 Hypocalcemia; E83.42 Hypomagnesemia; E78.2 Mixed hyperlipidemia; E11.9 Type 2 diabetes mellitus without complications; L20.9 Atopic dermatitis, unspecified; G89.3 Neoplasm related pain (acute) (chronic); G47.33 Obstructive sleep apnea (adult) (pediatric); H81.10 Benign paroxysmal vertigo, unspecified ear; F41.9 Anxiety disorder, unspecified; Z85.46 Personal history of malignant neoplasm of prostate; Z86.0101 Personal history of adenomatous and serrated colon polyps; Z87.891 Personal history of nicotine dependence; Z91.81 History of falling
CPT/HCPCS: 36415; 71046; 80048; 80053; 82310; 82948; 83036; 83690; 83735; 84132; 84443; 84484; 85025; 85027; 85610; 85730; 87040; 93005; 93306; 96361; 96365; 96366; 96367; 96375; 96376; 99285; A9270; G0378; J0282; J0612; J0613; J0692; J3475; J7040

== ENCOUNTER 2024-12-04 10:56 | Outpatient (CLI) | payer MEDICARE, SELFPAY ==
--- OUTSIDE RECORDS SUMMARY | 2024-12-04 10:59 | XMS_ITS | Encounter Summary ---
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
--- OUTSIDE RECORDS SUMMARY | 2024-12-04 10:59 | XMS_ITS | Encounter Summary ---
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
--- OUTSIDE RECORDS SUMMARY | 2024-12-04 10:59 | XMS_ITS | Clinical Summary ---
Author Organization [facility] Address [address] [place] [address] Care Team Providers Care Principal Network Engineer Name Role Phone Unavailable Primary Care Provider Unavailabl e Source Comments [facility],non-owned Affiliates and Associated Physician Practices is amultiple site organization consisting of ambulatory clinics and hospital sitesin [place], [place], [place] and [place]. This disclosure is being madepursuant to the Care Everywhere program and may not contain all information available regarding this patient. 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
--- OUTSIDE RECORDS SUMMARY | 2024-12-04 11:00 | XMS_ITS | Encounter Summary ---
Author Organization [facility] Address [address] [place] [address] Care Team Providers Care Prehemmer Name Role Phone Saw Ga MD Primary Care Provider [phone] Encounter Details Date Type Department Care Team (Late st Contact Info) Description 12/12/2005 Outpatient Historical [facility] ([facility]t [facility]iology[facility]) [address] [place] [id number] Collin Dennis MD NO ADDRESS ON FILE Social History Tobacco Use Types Packs/Day Years Used Date Smoking Tobacco: Never Assessed Sex and Gender Information Value Date Recorded Sex Assigned at Not on file Legal Sex Male 3:17 AM PERINATAL DIRECTOR Gender Identity Not on file Sexual Orientation Not on file documented as of this encounter Plan of Treatment Not on file documented as of this encounter Visit Diagnoses Not on filedocumented in this encounter Additional Health Concerns Infection Onset Date Last Indicated Resolved Time R/O C. diff 07/30/2024 07/30/2024 07/31/2024 7:00 PM PERINATAL DIRECTOR R/O Respiratory 09/01/2024 09/01/2024 09/01/2024 3 :21 AM PERINATAL DIRECTOR Influenza 09/01/2024 09/01/2024 09/09/2024 1:16 AM PERINATAL DIRECTOR documented as of this encounter Care Teams Prehemmer Relationship Specialty Start Date End Date Saw Ga MD [address] [place] [address] PCP - General Family Practice 02/17/19 documented as of this encounter
--- OUTSIDE RECORDS SUMMARY | 2024-12-04 11:00 | XMS_ITS | Encounter Summary ---
Author Organization [employer] Address 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 diff 07/30/2024 07/30/2024 07/31/2024 7:00 PM REGIONAL MARKETING MANAGER R/O Respiratory 09/01/2024 09/01/2024 09/01/2024 3 :21 AM REGIONAL MARKETING MANAGER Influenza 09/01/2024 09/01/2024 09/09/2024 1:16 AM REGIONAL MARKETING MANAGER documented as of this encounter Care Teams Master Fire Control Technician Relationship Specialty Start Date End Date Saw Ga MD [address] [place] [id number] PCP - General Family Practice 02/17/19 documented as of this encounter
--- OUTSIDE RECORDS SUMMARY | 2024-12-04 11:00 | XMS_ITS | Encounter Summary ---
Author Organization [employer] Address 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 diff 07/30/2024 07/30/2024 07/31/2024 7:00 PM MACHINERY ERECTOR R/O Respiratory 09/01/2024 09/01/2024 09/01/2024 3 :21 AM MACHINERY ERECTOR Influenza 09/01/2024 09/01/2024 09/09/2024 1:16 AM MACHINERY ERECTOR documented as of this encounter Care Teams Receiving Room Clerk Relationship Specialty Start Date End Date Saw Ga MD [facility] [place] [address] PCP - General Family Practice 02/17/19 documented as of this encounter
--- OUTSIDE RECORDS SUMMARY | 2024-12-04 11:00 | XMS_ITS | Clinical Summary ---
Author Organization [facility] Address [address] [place] [address] Care Team Providers Care Charter And Tour Bus Driver Name Role Phone Saw Ga MD Primary Care Provider Allergies No known active allergies Medications metFORMIN [...] Encounters Date Type Department Care Team Description 12/01/[address] [facility] Oncology and Hematology - [place] [address] [place] [address] Trent Nicholas MD Prostate cancer metastatic to bone ([facility]/HCC) 11/17/[address] [facility] Oncology and Hematology - [place] [address] [place] [address] Trent Nicholas MD Prostate cancer metastatic to bone ([facility]/HCC) 11/03/[address] [facility] Oncology and Hematology - [place] [address] [place] [address] Trent Nicholas MD Prostate cancer metastatic to bone (CMS/HCC) 10/20/[address] [facility] Oncology and Hematology [facility] [address] [place] [address] Trent Nicholas MD Prostate cancer metastatic to bone (CMS/HCC) 10/08/2024 External Device Data STL ABSTRACTION Provider, Abstract 10/06/[address] [facility] Oncology and [facility] [address] [place] [address] Trent Nicholas MD Prostate cancer metastatic to bone ([facility]/HCC) 09/30/2024 External Device Data STL ABSTRACTION Provider, Abstract 09/29/2024 External Device Data STL ABSTRACTION Provider, Abstract 09/28/2024 8:22 PM CDT - 09/29/2024 12:19 AM CDT Emergency [facility] Emergency Department [address] [place] [address] Amado Paige MD Prostate cancer metastatic to bone ([facility]/HCC) (Primary Dx); Right leg pain; Status post inguinal hernia repair; Type 2 diabetes mellitus without complication, without long-term current use of insulin ([facility]) Discharge Disposition: Home or Self Care 09/28/2024 Travel 09/22/[address] [facility] Oncology and [facility] [address] [place] [address] Trent Nicholas MD Prostate cancer metastatic to bone ([facility]/HCC) 09/08/[address] 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 Gender Identity Not on file [...] 75+ series) 2020 INFLUENZA VACCINE (#1) 2024 , 07/03/2019, 07/30/2013 DIABETES HBA1C Q 6 MONTHS 01/27/20252024, 11/02/2020, 11/05/2019, Additional history exists Medical Devices Implanted Type Area Dairy Inspector Device Identifier Shelf Expiration Date Model / Serial / Lot Mesh Plug Perfix Light [facility] [id number] - [id number] Implanted:Qty : 1 on 07/31/2024 by Jimmy Ochoa Jr., MD at [facility] Mesh Right: Inguinal BARD DAVOL [id number] 06/19/2025 [id number] / / [id number] Procedures Procedure Name Priority Date/Time Associated Diagnosis Comments CT FEMUR WO CONTRAST RIGHT Stat 09/28/2024 10:[address] PELVIS WO CONTRAST Stat 09/28/2024 10:51 PM CDT XR FEMUR 2 VW RIGHT Stat 09/28/2024 9 :36 PM CDT XR PELVIS 1 OR 2 VW Stat 09/28/2024 9 :34 PM CDT HEMOGLOBIN A1C Routine 07/30/2024 1:01 PM WIRE DRAWING MACHINE OPERATOR from Last 3 Months or Most Recently Relevant to Health Maintenance Results * CT FEMUR WO CONTRAST RIGHT (09/28/2024 10:51 PM CDT) Anatomical Region Laterality Modality Lower Extremity Computed Tomogra phy 09/28/2024 10:5 1 PM CDT Impressions 09/28/2024 11:04 PM CDT IMPRESSION: 1. Multifocal osteoblastic metastatic disease 2. No fracture or dislocation. DICTATION LOCATION: Location 1 - [facility] 09/28/2024 11:04 PM CDT EXAMINATION: COMPUTED TOMOGRAPHY [...] present. INCIDENTAL FINDINGS: None. Procedure Note Leonardo Mckinney [...] No fracture or dislocation. DICTATION LOCATION: Location [address] [place] [address] ORDERABLES Final Result * CT PELVIS WO CONTRAST (09/28/2024 10:51 PM CDT) Anatomical Region Laterality Modality Pelvis Computed Tomogra phy 09/28/2024 10:5 1 PM CDT Impressions 09/28/2024 11:01 PM CDT IMPRESSION: 1. Widespread sclerotic osseous metastatic disease. 2. No displaced fracture or dislocation identified. DICTATION LOCATION: Location [address] [place] [address] Narrative 09/28/2024 11:01 PM CDT EXAMINATION: COMPUTED [...] or dislocation identified. DICTATION LOCATION: Location 1 [facility] Amado Paige MD CT ORDERABLES Final [...] cancer bone metastases. Dictation location: Location 4 Amado Paige MD DIAGNOSTIC IMAGING ORDERABLES Final Result * XR PELVIS 1 OR 2 VW (09/28/2024 9:34 PM CDT) Anatomical Region Laterality Modality Pelvis Computed Radiogr aphy 09/28/2024 9:36 PM CDT Impressions 09/28/2024 9:51 PM CDT IMPRESSION: Heterogeneous appearance to the pelvic bony structures with patchy sclerotic lesions, compatible with osseous metastasis. No acute fracture is identified. DICTATION LOCATION: Location 1 [facility] 09/28/2024 9:51 PM CDT EXAM: XR PELVIS [...] is identified. DICTATION LOCATION: Location 1 - [facility] Amado Paige MD DIAGNOSTIC IMAGING ORDERABLES Final Result * (ABNORMAL) HEMOGLOBIN A1C (07/30/2024 1:01 PM WIRE DRAWING MACHINE OPERATOR) HEMOGLOBIN A1C 6.2(H) <5.7 % 07/30/2024 8:15 PM WIRE DRAWING MACHINE OPERATOR [facility] EST. AVG GLUCOSE, A1C 131 mg/dL 07/30/2024 8:15 PM WIRE DRAWING MACHINE OPERATOR [facility] Blood Venipuncture / Unknown 07/30/2024 1:01 PM WIRE DRAWING MACHINE OPERATOR 07/30/2024 1:23 PM WIRE DRAWING MACHINE OPERATOR Narrative [facility] - 07/30/2024 8:15 PM WIRE DRAWING MACHINE OPERATOR HGB A1C INTERPRETATION NORMAL: <5.7% PRE-DIABETES: 5.7 - 6.4% DIABETES: 6.5% OR GREATER Sandhya Garcia MD CHEMISTRY ORDERABLES Final Resul t [facility]# [id number] [address] [place] [address] from Last 3 Months or Most Recently Relevant to Health Maintenance Insurance MEDICARE PART A AND B MEDICARE PART A AND B [employer] Medicare Part D Advance Directives For more information, please contact: [phone] * Full Code (Latest Code Status on File) Date Activated Date Inactivated Comments 09/01/2024 9:12 AM 09/03/2024 7:41 PM * Full Code Date Activated Date Inactivated Comments 07/30/2024 7:03 PM 08/01/2024 2:50 PM Care Teams Charter And Tour Bus Driver Relationship Specialty Start Date End Date Saw Ga MD [facility] [place] [address] PCP - General Family Practice 02/17/19
--- OUTSIDE RECORDS SUMMARY | 2024-12-04 11:00 | XMS_ITS | Encounter Summary ---
Author Organization [facility] Healthcare Address [address] [place] [address] Care Team Providers Care Dining Car Conductor Name Role Phone Saw Ga MD Primary Care Provider [phone] Devon Carlin MD Unavailable [phone] Juan Alberto Hilario MD Unavailable [phone] Encounter Details Date Type Department Care Team (Late Contact Info) Description 12/03/2024 Orders Only [facility] Medical Group Cardiology [address] [facility] [address] [place] [address] May Marie MD [address] [place], [place] [id number] Social History Tobacco Use Types Packs/Day Years Used Date Smoking Tobacco: Former Cigarettes Passive Smoke Exposure: Past Smokeless Tobacco: Never Alcohol Use Standard Drinks/Week [...] materials from doctor or pharmacy Always 11/27/2023 [facility] Utilities Answer Date Recorded In the past 12 months has th e [employer], gas, oil, or water [employer] threatened to shut off services in your [...] often do you attend chur ch or congregational services? 1 to 4 times per year 11/07/2024 Do you belong to any clubs o r organizations such as anabaptism groups, unions, fraternal or athletic groups, or [...] staff should administer the PHQ-9) 0 11/07/2024 [facility] of Occupat ional [facility] - Occupational Stress Questionnaire Answer Date [...] place to sleep or slept in a snf (including now)? No 11/21/2023 Housing Stability Vital Sign Answer Roman e Recorded In the last 12 months, was t here a time when you were not able to pay the mortgage or rent on time? No 11/07/2024 In the past 12 months, how m any times have you moved where you were living? 0 11/07/2024 At any time in the past [address] [facility], were you homeless or living in a snf (including now)? No 11/07/2024 Personal Safety Answer Date Recorded Have you ever been in or are you currently in a harmful physical or emotional relationship or is someone making you feel afraid or unsafe? Denies 11/06/2024 Sex and Gender Information Value Date Recorded Sex Assigned at Not on file Legal Sex Male 4:28 AM CHIEF INNOVATION OFFICER Gender Identity Not on file Sexual Orientation Not on file documented as of this encounter Plan of Treatment Not on file documented as of this encounter Procedures Procedure Name Priority Date/Time Associated Diagnosis Comments CARDIOLOGY DOCUMENT SCAN Routine 11/28/2024 2:30 PM CDT CARDIOLOGY DOCUMENT SCAN Routine 11/27/2024 2:28 PM CDT CARDIOLOGY DOCUMENT SCAN Routine 11/26/2024 2:06 PM CDT documented in this encounter Results * Cardiology Document Scan (11/28/2024 2:30 PM CDT) Anatomical Region Laterality Modality Other Veronika Partida NP CV CARDIAC SERVICES PROCEDUR ES Final Result * Cardiology Document Scan (11/27/2024 2:28 PM CDT) Anatomical Region Laterality Modality Other May Marie MD CV CARDIAC SERVICES PROCEDU RES Final Result * Cardiology Document Scan (11/26/2024 2:06 PM CDT) Anatomical Region Laterality Modality Other May Marie MD CV CARDIAC SERVICES PROCEDU RES Final Result documented in this encounter Visit Diagnoses Not on filedocumented in this encounter Additional Health Concerns Infection Onset Date Last Indicated Resolved Time C. difficile Comment:Contact Precautions until patient has completed at least 7 -day course of therapy and has been diarrhea-free for at least 48 hours (whichever is longer) - Ben SUMMERS, RN 11/11/24 11/07/2024 11/07/2024 documented as of this encounter Care Teams Dining Car Conductor Relationship Specialty Start Date End Date Saw Ga MD [address] [address] PCP - General 10/20/16 Juan Alberto Hilario MD [address] [place] [address] PCP - Hospice Attending 11/05/24 Devon Carlin MD [address] [place] [address] MEDICAL ONCOLOGY, [address] [place] [address] Medical Oncology 12/21/23 documented as of this encounter
--- OUTSIDE RECORDS SUMMARY | 2024-12-04 11:00 | XMS_ITS | Encounter Summary ---
Author Organization [facility] Address [address] [place] [address] Care Team Providers Care Supervisor Polishing Name Role Phone Saw Ga MD Primary Care Provider [phone] Encounter Details Date Type Department Care Team (Late st Contact Info) Description 02/27/2006 Outpatient Historical [facility] Mueller, [address] [place] [address] [place], Authorized P NO ADDRESS ON FILE [...] on file Legal Sex Male 3:17 AM WEB SERVICES DEVELOPER Gender Identity Not on file Sexual Orientation [...] C. diff 07/30/2024 07/30/2024 07/31/2024 7:00 PM WEB SERVICES DEVELOPER R/O Respiratory 09/01/2024 09/01/2024 09/01/2024 3 :21 AM WEB SERVICES DEVELOPER Influenza 09/01/2024 09/01/2024 09/09/2024 1:16 AM WEB SERVICES DEVELOPER documented as of this encounter Care Teams Supervisor Polishing Relationship Specialty Start Date End Date Saw Ga MD [address] [place] [address] PCP - General Family Practice 02/17/19 documented as of this encounter
--- OUTSIDE RECORDS SUMMARY | 2024-12-04 11:00 | XMS_ITS ---
Author Organization [facility] Administrative Offices Address [address] [place] [address] Care Team Providers Care Verification Clerk Name Role Phone Saw Ga MD Primary Care Provider Active Problems Problem Noted Date Diagnosed Date [...]
--- OUTSIDE RECORDS SUMMARY | 2024-12-04 11:00 | XMS_ITS | Encounter Summary ---
Author Organization [facility] Address [address] [place] [address] Care Team Providers Care Meter Setter Name Role Phone Saw Ga MD Primary Care Provider [phone] Encounter Details Date Type Department Care Team (Late st Contact Info) Description 12/12/2005 Outpatient Historical [facility] Trauma and General Surgery [address] [facility] [address] [id number] [place] [address] [place] [address] Social History Tobacco Use Types Packs/Day Years Used Date Smoking Tobacco: Never Assessed Sex and Gender Information Value Date Recorded Sex Assigned at Not on file Legal Sex Male 3:17 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 diff 07/30/2024 07/30/2024 07/31/2024 7:00 PM DYEHOUSE WORKER R/O Respiratory 09/01/2024 09/01/2024 09/01/2024 3 :21 AM DYEHOUSE WORKER Influenza 09/01/2024 09/01/2024 09/09/2024 1:16 AM DYEHOUSE WORKER documented as of this encounter Care Teams Meter Setter Relationship Specialty Start Date End Date Saw Ga MD [address] [place] [address] PCP - General Family Practice 02/17/19 documented as of this encounter
--- OUTSIDE RECORDS SUMMARY | 2024-12-04 11:01 | XMS_ITS | Encounter Summary ---
Author Organization [facility] Address [address] [place] [address] Care Team Providers Care Fur Mixer Operator Name Role Phone Saw Ga MD Primary Care Provider [phone] Encounter Details Date Type Department Care Team (Late st Contact Info) Description 12/13/2005 Outpatient Historical [facility] Trauma and General Surgery [address] [facility] [address] [address] Delgado Parra MD [address] [place] [address] Social History Tobacco Use Types Packs/Day Years Used Date Smoking Tobacco: Never Assessed Sex and Gender Information Value Date Recorded Sex Assigned at Not on file Legal Sex Male 3:17 AM WEIGH TANK OPERATOR Gender Identity Not on file Sexual Orientation Not on file documented as of this encounter Plan of Treatment Not on file documented as of this encounter Visit Diagnoses Not on filedocumented in this encounter Additional Health Concerns Infection Onset Date Last Indicated Resolved Time R/O C. diff 07/30/2024 07/30/2024 07/31/2024 7:00 PM WEIGH TANK OPERATOR R/O Respiratory 09/01/2024 09/01/2024 09/01/2024 3 :21 AM WEIGH TANK OPERATOR Influenza 09/01/2024 09/01/2024 09/09/2024 1:16 AM WEIGH TANK OPERATOR documented as of this encounter Care Teams Fur Mixer Operator Relationship Specialty Start Date End Date Saw Ga MD [address] [place] [address] PCP - General Family Practice 02/17/19 documented as of this encounter
--- OUTSIDE RECORDS SUMMARY | 2024-12-04 11:01 | XMS_ITS | Encounter Summary ---
Author Organization [facility] Address [address] [place] [address] Care Team Providers Care Motor Home Electrical Foreman Name Role Phone Saw Ga MD Primary Care Provider [phone] Encounter Details Date Type Department Care Team (Late st Contact Info) Description 01/02/2006 Outpatient Historical [facility] Trauma and General Surgery [address] [facility] [address] [phone] [place] [address] [place] [address] Social History Tobacco Use Types Packs/Day Years Used Date Smoking Tobacco: Never Assessed Sex and Gender Information Value Date Recorded Sex Assigned at Not on file Legal Sex Male 3:17 AM TWISTER OPERATOR Gender Identity Not on file Sexual Orientation Not on file documented as of this encounter Plan of Treatment Not on file documented as of this encounter Visit Diagnoses Not on filedocumented in this encounter Additional Health Concerns Infection Onset Date Last Indicated Resolved Time R/O C. diff 07/30/2024 07/30/2024 07/31/2024 7:00 PM TWISTER OPERATOR R/O Respiratory 09/01/2024 09/01/2024 09/01/2024 3 :21 AM TWISTER OPERATOR Influenza 09/01/2024 09/01/2024 09/09/2024 1:16 AM TWISTER OPERATOR documented as of this encounter Care Teams Motor Home Electrical Foreman Relationship Specialty Start Date End Date Saw Ga MD [address] [place] [address] PCP - General Family Practice 02/17/19 documented as of this encounter
--- OUTSIDE RECORDS SUMMARY | 2024-12-04 11:01 | XMS_ITS | Encounter Summary ---
Author Organization [facility] Address [address] [place] [address] Care Team Providers Care It Senior Software Engineer Java Name Role Phone Saw Ga MD Primary Care Provider [phone] Encounter Details Date Type Department Care Team (Late st Contact Info) Description 01/26/[address] [facility] Trauma and General Surgery [address] [facility] [address] [place] [address] Jim Gonzalez MD [address] [facility] [address] [facility] [place] [address] Social History Tobacco Use Types Packs/Day Years Used Date Smoking Tobacco: Never Assessed Sex and Gender Information Value Date Recorded Sex Assigned at Not on file Legal Sex Male 3:17 AM CRUSHER PLANT OPERATOR Gender Identity Not on file Sexual Orientation Not on file documented as of this encounter Plan of Treatment Not on file documented as of this encounter Visit Diagnoses Not on filedocumented in this encounter Additional Health Concerns Infection Onset Date Last Indicated Resolved Time R/O C. diff 07/30/2024 07/30/2024 07/31/2024 7:00 PM CRUSHER PLANT OPERATOR R/O Respiratory 09/01/2024 09/01/2024 09/01/2024 3 :21 AM CRUSHER PLANT OPERATOR Influenza 09/01/2024 09/01/2024 09/09/2024 1:16 AM CRUSHER PLANT OPERATOR documented as of this encounter Care Teams It Senior Software Engineer Java Relationship Specialty Start Date End Date Saw Ga MD [address] [place] [phone] PCP - General Family Practice 02/17/19 documented as of this encounter
--- OUTSIDE RECORDS SUMMARY | 2024-12-04 11:01 | XMS_ITS | Encounter Summary ---
Author Organization [facility] Address [address] [place] [address] Care Team Providers Care Cash Management Officer Name Role Phone Saw Ga MD Primary Care Provider [phone] Encounter Details Date Type Department Care Team (Late st Contact Info) Description 12/29/2005 Outpatient Historical [facility] Trauma and General Surgery [address] [facility] [address] [address] Delgado Parra MD [address] [place] [address] Social History Tobacco Use Types Packs/Day Years Used Date Smoking Tobacco: Never Assessed Sex and Gender Information Value Date Recorded Sex Assigned at Not on file Legal Sex Male 3:17 AM CROSSING FLAGMAN Gender Identity Not on file Sexual Orientation Not on file documented as of this encounter Plan of Treatment Not on file documented as of this encounter Visit Diagnoses Not on filedocumented in this encounter Additional Health Concerns Infection Onset Date Last Indicated Resolved Time R/O C. diff 07/30/2024 07/30/2024 07/31/2024 7:00 PM CROSSING FLAGMAN R/O Respiratory 09/01/2024 09/01/2024 09/01/2024 3 :21 AM CROSSING FLAGMAN Influenza 09/01/2024 09/01/2024 09/09/2024 1:16 AM CROSSING FLAGMAN documented as of this encounter Care Teams Cash Management Officer Relationship Specialty Start Date End Date Saw Ga MD [address] [place] [address] PCP - General Family Practice 02/17/19 documented as of this encounter
--- OUTSIDE RECORDS SUMMARY | 2024-12-04 11:01 | XMS_ITS | Encounter Summary ---
Author Organization [facility] Address [address] [place] [address] Care Team Providers Care Winder Fixer Name Role Phone Saw Ga MD Primary Care Provider [phone] Encounter Details Date Type Department Care Team (Late st Contact Info) Description 01/06/2006 Outpatient Historical [facility] Blood Flow [address] [place] [address] Gonzalo Polk MD NO ADDRESS ON FILE Social History Tobacco Use Types Packs/Day Years Used Date Smoking Tobacco: Never Assessed Sex and Gender Information Value Date Recorded Sex Assigned at Not on file Legal Sex Male 3:17 AM STATE GAME WARDEN Gender Identity Not on file Sexual Orientation Not on file documented as of this encounter Plan of Treatment Not on file documented as of this encounter Visit Diagnoses Not on filedocumented in this encounter Additional Health Concerns Infection Onset Date Last Indicated Resolved Time R/O C. diff 07/30/2024 07/30/2024 07/31/2024 7:00 PM STATE GAME WARDEN R/O Respiratory 09/01/2024 09/01/2024 09/01/2024 3 :21 AM STATE GAME WARDEN Influenza 09/01/2024 09/01/2024 09/09/2024 1:16 AM STATE GAME WARDEN documented as of this encounter Care Teams Winder Fixer Relationship Specialty Start Date End Date Saw Ga MD [facility] [place] [phone] PCP - General Family Practice 02/17/19 documented as of this encounter
--- OUTSIDE RECORDS SUMMARY | 2024-12-04 11:01 | XMS_ITS | Encounter Summary ---
Author Organization [facility] Address [address] [place] [address] Care Team Providers Care Willow Machine Tender Name Role Phone Saw Ga MD Primary Care Provider [phone] Encounter Details Date Type Department Care Team (Late st Contact Info) Description 01/06/2006 Outpatient Historical [facility] Patrick Mohan MD [address] [place] [address] [place] [address] Er, Authorized P NO ADDRESS ON FILE Swelling of Limb (Primary Dx) Social History Tobacco Use Types Packs/Day Years Used Date Smoking Tobacco: Never Assessed Sex and Gender Information Value Date Recorded Sex Assigned at Not on file Legal Sex Male 3:17 AM AIRPLANE RIGGER Gender Identity Not on file Sexual Orientation [...] ORDERABLES Final Resu lt Performing Organization Address [facility] de Phone Number INTERFACE SYSTEM Refer to clinic/hospital department * CBC WITH DIFFERENTIAL (01/06/2006 5:15 PM CDT) Pathologist [facility] WBC 7.2 4.0 - 9.8 K/uL [...] ORDERABLES Final Resu lt Performing Organization Address [facility] de Phone Number INTERFACE SYSTEM Refer to clinic/hospital department * C-REACTIVE PROTEIN (01/06/2006 5:15 PM CDT) CRP 0.7 0.0 - 0.8 mg/dL INTERFACE SYSTEM 01/06/2006 5:15 PM CDT Patrick Mohan MD CHEMISTRY ORDERABLES Final Resul t Performing Organization Address [facility] Phone Number INTERFACE SYSTEM Refer to clinic/hospital [...] ORDERABLES Final Resul t Performing Organization Address [facility] Phone Number INTERFACE SYSTEM Refer to clinic/hospital department documented in this encounter Visit Diagnoses Diagnosis Swelling of limb- Primary documented in this encounter Additional Health Concerns Infection Onset Date Last Indicated Resolved Time R/O C. diff 07/30/2024 07/30/2024 07/31/2024 7:00 PM AIRPLANE RIGGER R/O Respiratory 09/01/2024 09/01/2024 09/01/2024 3 :21 AM AIRPLANE RIGGER Influenza 09/01/2024 09/01/2024 09/09/2024 1:16 AM AIRPLANE RIGGER documented as of this encounter Care Teams Willow Machine Tender Relationship Specialty Start Date End Date Saw aG MD [address] [place] [address] PCP - General Family Practice 02/17/19 documented as of this encounter
--- OUTSIDE RECORDS SUMMARY | 2024-12-04 11:02 | XMS_ITS | Clinical Summary ---
Author Organization [facility] [address] Address [address] [place] [address] Care Team Providers Care Straight Edger Name Role Phone Saw Ga MD Primary Care Provider [phone] Devon Carlin MD Unavailable [phone] Juan Alberto Hilario MD Unavailable [phone] Allergies Active Allergy Reactions Criticality Noted [...] day for 72 hours 10 patch 025 Active al & mag hydroxide simethicone-dip henhydramine-li docaine-nystati n (MAGIC MOUTHWASH) suspension 4-6-9-1Indicati ons:Prostate cancer (HCC),Metastasi s to bone (HCC),Physical [...] total) by mouth daily 30 tablet Active OLANZapine (ZyPREXA) 2.5 mg tabletIndicatio ns:Prostate cancer (HCC),Metastasi s to bone (HCC) Take 1 tablet (2.5 mg total) by mouth nightly 30 tablet 2 025 2024 Active senna-docusate (PERICOLACE) 8.6-50 mg Take 2 [...] simethicone-dip henhydramine-li docaine-nystati n (MAGIC MOUTHWASH) suspension 4-6-3-1Indicati ons:Prostate cancer (HCC),Metastasi s to bone (HCC),Physical deconditioning, Cancer related pain Swish and swallow 15 mL every 4 (four) hours as needed (For Tx related sore-throat and potential mouth sores) 500 mL 3 025 2024 Discontinued( Reorder) OLANZapine (ZyPREXA) 2.5 mg tabletIndicatio ns:Prostate cancer (HCC),Metastasi s to bone (HCC),Physical deconditioning, Cancer related pain Take 1 tablet (2.5 mg total) by mouth nightly 30 tablet 025 2024 Discontinued( Reorder) fidaxomicin (DIFICID) tabletIndicatio [...] Plan (11/09/2024 1:17 PM CDT): Presenting from [facility] with two days of nausea, vomiting, diarrhea, [...] Plan (11/08/2024 10:51 AM CDT): Presenting from [facility] with two days of nausea, vomiting, diarrhea, [...] Plan (11/07/2024 10:37 AM CDT): Presenting from [facility] with two days of nausea, vomiting, diarrhea, [...] Plan (11/06/2024 9:11 PM CDT): Presenting from [facility] with two days of nausea, vomiting, diarrhea, [...] (11/08/2024 10:51 AM CDT): MRI L spine 10/23 showed [...] coulazitaxel (not started yet). Last PET CT 4/3 showed widespread concordant hypermetabolic and PSMA overexpressing [...] Follows with Dr. Carlin. 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 [...] Plan (12/21/2023 12:21 PM CDT): Follows with [facility] oncology for prostate cancer, initially diagnosed [...] outpatient follow-up with the oncologist here at [facility]. Oncology to arrange follow-up at discharge [...] without new or worsened bleed. Evaluated by NSAJAY in ED without any operative plans. - Discussed with beverley GIBSON with [facility] for DVT ppx Assessment & Plan (11/22/2023 2:54 PM CDT): Neurosurgery team for 3 mm R frontal SDH, which was managed non-operatively, and followed with stable serial imaging. This patient was staffed with Dr. Avendano The patient should be seen in clinic in 4-6 weeks with a non-contrast head CT. OK for [facility] for DVT prophylaxis and Q4H NC. Hold [...] 4:32 PM CDT): Patient with prolonged history [id number]|2024-12-04 11:01:00|2024-12-04 11:00:00|XMS_ITS|[facility]|External Medical Summaries|[id number]|" Encounter Summary Created on: December 04, 2024 Ej Steen Obinna Beckhamugio : 1945 Sex: Male Author Organization [employer] Address [address] [place] [address] Care Team Providers Care Straight Edger Name Role Phone Saw Ga MD Primary Care Provider [phone] Encounter Details Date Type Department Care Team (Late st Contact Info) Description 01/13/2006 Outpatient Historical [facility] [place] [address] [place] [address] Cervical Spondylosis without Myelopathy (Primary Dx) Social History Tobacco Use Types Packs/Day Years Used Date Smoking Tobacco: Never Assessed Sex and Gender Information Value Date Recorded Sex Assigned at Not on file Legal Sex Male 3:17 AM PILE DRIVER ENGINEER Gender Identity Not on file Sexual Orientation Not on file documented as of this encounter Plan of Treatment Not on file documented as of this encounter Visit Diagnoses Diagnosis Cervical spondylosis without myelopathy- Primary documented in this encounter Additional Health Concerns Infection Onset Date Last Indicated Resolved Time R/O C. diff 07/30/2024 07/30/2024 07/31/2024 7:00 PM PILE DRIVER ENGINEER R/O Respiratory 09/01/2024 09/01/2024 09/01/2024 3 :21 AM PILE DRIVER ENGINEER Influenza 09/01/2024 09/01/2024 09/09/2024 1:1 6 AM PILE DRIVER ENGINEER documented as of this encounter Care Teams Straight Edger Relationship Specialty Start Date End Date Saw Ga MD [address] [place] [address] PCP - General Family Practice 02/17/19 documented as of this encounter "
--- OUTSIDE RECORDS SUMMARY | 2024-12-04 11:03 | XMS_ITS | Referral Summary ---
Author Organization [facility] [address] Address [address] [place] [address] Care Team Providers Care Alumni Coordinator Name Role Phone Saw Ga MD Primary Care Provider [phone] Devon Carlin MD Unavailable [phone] Juan Alberto Hilario MD Unavailable [phone] Encounters Date Type Department Care Team Description 12/03/2024 Orders Only [facility] Cardiology [address] [place] [address] May Marie MD 11/27/2024 Telephone [facility] - Palliative Care [address] [facility] [place], [place] [id number] Annie Quiroga RN 11/19/2024 Telephone [facility] Oncology [address] [facility] [place] Floor 5 [place] [address] Devon Carlin MD 11/18/2024 Telephone [facility] - Palliative Care [address] [facility] [place], [place] [id number] Edna Beyer RN 11/17/2024 Telephone [facility] Oncology [facility] [place] Floor 5 [place] [address] Devon Carlin MD 11/10/2024 Completion of Therapy [facility] Radiation Oncology [address] [facility] [place] [address] Radha Mo PA 11/10/2024 Orders Only RAD ONC TREATMENTS Miscellaneous, Not In File 11/10/2024 OTV [facility] Radiation Oncology [address] [facility] [place] [address] Ino Omalley MD 11/10/2024 3:07 PM CDT - 11/10/2024 11:59 PM CDT Hospital Encounter [facility] Radiation Oncology [address] [place] [address] [place] [address] Moriah Gentile MD Discharge Disposition: Discharge to home or self care 11/06/2024 6:04 PM CDT - 11/09/2024 5:29 PM CDT Hospital Encounter [facility] 1 [place] [address] Devon Carlin MD Chow, Kelsey Sarah, MD Nausea (Primary Dx) Discharge Disposition: Discharge to home or self care 11/07/2024 Documentation [facility] Radiation Oncology [address] [facility] [place] [address] Melissa Pitt RN 11/06/2024 3:37 PM CDT - 11/06/2024 11:59 PM CDT Hospital Encounter [facility] [address] [place] [address] Discharge Disposition: Discharge to home or self care 11/06/2024 Telephone [facility] - [address] [place] [address] Luisa Naranjo, RN 11/05/2024 Orders Only [facility] Oncology [facility] [place] Floor 5 [place] [address] Devon Carlin MD Prostate cancer (HCC) (Primary Dx); Metastasis to bone (HCC); Physical deconditioning; Cancer related pain 11/05/2024 Telephone [facility] Radiation Oncology [address] [facility] [place] [address] Melissa Pitt RN 11/03/2024 Orders Only [facility] Oncology [facility] [place] Floor 5 [place] [address] Devon Carlin MD Prostate cancer (HCC) (Primary Dx); Metastasis to bone (HCC); Cancer related pain 10/30/2024 Orders Only [facility] - Infusion [address] [facility] Floor 5 [place] [address] Indigo Bal mary lou 10/30/2024 11:30 AM CDT Infusion [facility] - Infusion [address] [facility] Floor 5 [place] [address] Persons encountering health services in other specified circumstances (Primary Dx); Metastasis to bone (HCC); Prostate cancer (HCC) 10/30/2024 8:45 AM CDT Lab [facility] - Lab Collection [address] [facility] Floor 5 [place] [address] Metastasis to bone (HCC); Prostate cancer (HCC); Persons encountering health services in other specified circumstances 10/30/2024 9:45 AM CDT Office Visit [facility] Oncology [address] [facility] [place] Floor 5 [place] [address] Devon Carlin MD Prostate cancer (HCC) (Primary Dx); Metastasis to bone (HCC); Persons encountering health services in other specified circumstances 10/25/2024 10:06 AM CDT - 10/28/2024 7:01 PM CDT Hospital Encounter [address] [address] Jotte, MD Vincent Egan, MD Raegan Linares Mark Lee, MD Zhang, Jiahua, DO Brito Rivera, Natalia, MD Prostate cancer (HCC) (Primary Dx); Lactate blood increase; Fever, unspecified fever cause; Body aches; Cancer associated pain; Physical deconditioning Discharge Disposition: Discharge to home or self care 10/27/2024 Documentation [facility] Radiation Oncology [address] [facility] [place] [address] Anna Marie Story, JP 10/27/2024 8:05 AM CDT Ancillary Procedure [facility] Vascular Lab IP [address] [facility] [address] [place] [address] 10/27/2024 1:25 PM CDT - 10/27/2024 11:59 PM CDT Hospital Encounter [facility] Radiation Oncology [address] [place] [address] Moriah Gentile MD Discharge Disposition: Discharge to home or self care 10/24/2024 Documentation [facility] Radiation Oncology [address] [place] [address] Stephanie Almendarez RN 10/24/2024 Telephone [facility] Radiation Oncology [address] [place] [address] Stephanie Almendarez RN 10/19/2024 5:14 PM CDT - 10/24/2024 6:04 PM CDT Hospital Encounter [address] [address] Sterling Mejias MD PhD Raegan, MD Loretta Bryant Daniel J., MD Hypervolemia, unspecified hypervolemia type (Primary Dx); Acute congestive heart failure, unspecified heart failure type (HCC); Prostate cancer (HCC) Discharge Disposition: Discharge to home or self care 10/20/2024 6:55 AM CDT Ancillary Procedure [facility] Vascular Lab IP [address] [facility] [address] [place] [address] 10/17/2024 Telephone [facility] Oncology [facility] [place] Floor 5 [place] [address] Devendra Jane RN 10/16/2024 Telephone Radiology 1 [place] [address] Aniyah Ward, RT 10/16/2024 Orders Only [facility] - Infusion [address] 5 [place] [address] Indigo Bal, [facility] 10/16/2024 9:15 AM CDT Lab [facility] Lab Collection [address] [facility] Floor 5 [place] [address] Metastasis to bone (HCC); Prostate cancer (HCC); Prostate cancer metastatic to bone (HCC) 10/16/2024 11:15 AM CDT Infusion [facility] - [facility]fusion [address] Floor 5 [place] [address] Prostate cancer (HCC) (Primary Dx); Metastasis to bone (HCC) 10/16/2024 10:00 AM CDT Office Visit [facility] Oncology [facility] [place] Floor 5 [place] [address] Devon Carlin MD Prostate cancer (HCC) (Primary Dx); Prostate cancer metastatic to bone (HCC); Metastasis to bone (HCC) 10/16/2024 9:00 AM CDT Lab [facility] Oncology Lab [facility] [place] Floor 5 [place] [address] Metastasis to bone (HCC); Prostate cancer (HCC) 10/10/2024 12:23 PM CDT - 10/10/2024 11:59 PM CDT Hospital Encounter [facility] [address] 8 [place], [place] [phone] Discharge Disposition: Discharge to home or self care 10/10/2024 12:23 PM CDT - 10/10/2024 11:59 PM CDT Hospital Encounter [facility] [address] 8 [place], [place] [phone] Metastasis to bone (HCC); Prostate cancer (HCC) Discharge Disposition: Discharge to home or self care 09/30/2024 Orders Only [facility] Oncology [address] [facility] [place] Floor 5 [place] [address] Devon Carlin MD Prostate cancer (HCC) (Primary Dx); Metastasis to bone (HCC) 09/24/2024 1:30 PM BOARD DESIGN ENGINEER Office Visit [facility] Neurosurgery [address] [facility] [place] Floor 1, [address] [place] [address] Belkis Hoang PA Metastatic malignant neoplasm, unspecified site (HCC) (Primary Dx); Metastasis to bone (HCC) 09/23/2024 5:50 PM BOARD DESIGN ENGINEER - 09/23/2024 11:59 PM BOARD DESIGN ENGINEER Hospital Encounter [facility] - MRI [address] [facility] [address] [place] [address] Metastasis to bone (HCC) Discharge Disposition: Discharge to home or self care 09/18/2024 7:30 AM BOARD DESIGN ENGINEER Lab [facility] - Lab Collection [address] [facility] Floor 5 [place] [address] Metastasis to bone (HCC); Prostate cancer (HCC) 09/18/2024 8:30 AM BOARD DESIGN ENGINEER Office Visit [facility] Oncology [facility] [place] Floor 5 [place] [address] Devon Carlin MD Prostate cancer (HCC) (Primary [...] third day for 72 hours 10 patch Active al & mag hydroxide simethicone-dip henhydramine-li docaine-nystati n (MAGIC MOUTHWASH) suspension 9-5-2-1Indicati ons:Prostate cancer (HCC),Metastasi s to bone (HCC),Physical [...] 2 (two) times a day 60 tablet 2024 Discontinued oxyCODONE (ROXICODONE) 10 mg tabletIndicatio [...] does not stop nausea. 24 tablet 3 025 2024 Discontinued prochlorperazin e (Compazine) 10 mg tabletIndicatio ns:Prostate cancer (HCC),Metastasi s to bone (HCC),Persons encountering health services in other specified circumstances Take 1 tablet (10 mg total) by mouth every 6 (six) hours as needed for nausea or vomiting Use first for nausea. 120 tablet 3 2024 Discontinued al & mag hydroxide simethicone-dip henhydramine-li docaine-nystati n (MAGIC MOUTHWASH) suspension 9-4-9-1Indicati ons:Prostate cancer (HCC),Metastasi s to bone (HCC),Physical [...] Plan (11/09/2024 1:17 PM CDT): Presenting from [facility] with two days of nausea, vomiting, diarrhea, [...] Plan (11/08/2024 10:51 AM CDT): Presenting from [facility] with two days of nausea, vomiting, diarrhea, [...] Plan (11/07/2024 10:37 AM CDT): Presenting from [facility] with two days of nausea, vomiting, diarrhea, [...] Plan (11/06/2024 9:11 PM CDT): Presenting from [facility] with two days of nausea, vomiting, diarrhea, [...] 01/17/2024 Assessment & Plan (01/19/2024 1:11 PM CDT) [id number]|2024-12-04 11:03:00|2024-12-04 11:02:00|XMS_ITS|[facility] DAEMON|External Medical Summaries|[id number]|" Oncology Summary Created on: December 04, 2024 Ej Steen : 1945 Sex: Male Author Organization [facility] [address] [address] Address [address] [facility] [address] [place] [address] Care Team Providers Care Alumni Coordinator Name Role Phone Saw Ga MD Primary Care Provider [phone] Devon Carlin MD Unavailable [phone] Juan Alberto Hilario MD Unavailable [phone] Active Problems Problem Noted Date Diagnosed [...] Plan (11/09/2024 1:17 PM CDT): Presenting from [facility] with two days of nausea, vomiting, diarrhea, [...] Plan (11/08/2024 10:51 AM CDT): Presenting from [facility] with two days of nausea, vomiting, diarrhea, [...] Plan (11/07/2024 10:37 AM CDT): Presenting from [facility] with two days of nausea, vomiting, diarrhea, [...] Plan (11/06/2024 9:11 PM CDT): Presenting from [facility] with two days of nausea, vomiting, diarrhea, [...] Plan (12/21/2023 12:21 PM CDT): Follows with [facility] oncology for prostate cancer, initially diagnosed [...] outpatient follow-up with the oncologist here at [facility]. Oncology to arrange follow-up at discharge Assessment [...] confusion when oxyIR is taken 3-4x/day, but MARLENIClark Reveles denies this, says it was duloxetine [...] without any operative plans. - Discussed with PAIGE, beverley with [facility] for DVT ppx Assessment & Plan (11/22/2023 2:54 PM CDT): Neurosurgery team for 3 mm R frontal SDH, which was managed non-operatively, and followed with stable serial imaging. This patient was staffed with Dr. Avendano The patient should be seen in clinic in 4-6 weeks with a non-contrast head CT. OK for SQH for DVT prophylaxis and Q4H NC. Hold [...] to recurrent falls and prior SDH 11/2023. Photographic Process Attendant discussed Watchman device 02/13/24 but pt deferred. [...] home Coumadin, continue metoprolol for rate control Photographic Process Attendant Dr Andi benavides (11/21) plan for watchman [...] anticoagulation 02/05/201709/22 Osteoarthritis 10/20/2024 Overview (01/10/2024): Osteoarthritis "
--- OUTSIDE RECORDS SUMMARY | 2024-12-04 11:03 | XMS_ITS | Encounter Summary ---
Author Organization [facility] Address [address] [place] [address] Care Team Providers Care Hide Washer Name Role Phone Saw Ga MD Primary Care Provider Encounter Details Date Type Department Care Team (Late st Contact Info) Description 12/01/2024 Orders Only [facility] Oncology and Hematology - [place] [address] [facility] [address] [place] [address] Trent Nicholas MD [address] [facility] [address] [place] [address] Prostate cancer metastatic to bone (CMS/HCC) Social History Tobacco Use Types Packs/Day Years [...] on file Legal Sex Male 3:17 AM PERSONAL COACH Gender Identity Not on file Sexual Orientation Not on file documented as of this encounter Plan of Treatment Not on file documented as of this encounter Visit Diagnoses Diagnosis Prostate cancer metastatic to bone (CMS/HCC) documented in this encounter Additional Health Concerns Assessment Noted Time PHQ-9 Depression Total Score: 2 07/30/19 25 8:34 PM PERSONAL COACH documented as of this encounter Care Teams Hide Washer Relationship Specialty Start Date End Date Saw Ga MD [facility] [place] [address] PCP - General Family Practice 02/17/19 documented as of this encounter
== END 2024-12-04 10:57 | disposition home or self-care (01) ==
LOC: ANHAUDIO 10:56
PROVIDERS: PCP Family Medicine; Visit Provider Otolaryngology
DX: H90.3 Sensorineural hearing loss, bilateral (principal); H93.12 Tinnitus, left ear; R42 Dizziness and giddiness; H61.23 Impacted cerumen, bilateral; H74.8X3 Other specified disorders of middle ear and mastoid, bilateral; H69.90 Unspecified Eustachian tube disorder, unspecified ear; J31.0 Chronic rhinitis
CPT/HCPCS: 92553; 92555; 92567